=== PATIENT | female | born 1990 | race Caucasian/White ===

== ENCOUNTER → 2017-06-07 15:26 | Outpatient (CLI) | payer OTHER, SELFPAY | PROVIDERS: Family Provider Nurse Practitioner Family; PCP Nurse Practitioner Family | DX: R00.0 Tachycardia, unspecified (principal) | CPT/HCPCS: 96523 ==

== ENCOUNTER 2017-06-10 17:11 | Emergency (ER) | payer OTHER, SELFPAY ==
[2017-06-10 17:12] VITALS: BP 157/113; PULSE 98; RESP 18; TEMP 36.6; O2SAT 100; BMI 26.1
--- NOTE | 2017-06-10 17:29 | EKG12_ITS ---
Test Reason : Blood Pressure : / mmHG Vent. Rate : 097 BPM Atrial Rate : 097 BPM P-R Int : 126 ms QRS Dur : 084 ms QT Int : 366 ms P-R-T Axes : 063 068 038 degrees QTc Int : 464 ms Normal sinus rhythm Normal ECG Confirmed by RADHA MARCELO, ENRIKE ([id number]), editor managing newspaper YELENA TAVARES ([id number]) on 06/13/2017 3:35:37 PM Referred By: SCOTT Confirmed By:ENRIKE GARCIA MD
--- NOTE | 2017-06-10 17:32 | ED.VISSUMM ---
- ER Visit Summary Date of Service: 06/10/17 Chief Complaint: [] Syncope History of Present Illness: The patient is a 27 F [] complaining of syncope ?4 and headache. Patient reports a history of POTS syndrome (postural orthostatic tachycardia syndrome). Reports this is the reason she had syncope. She reports her syncope frequency increases when she has a headache. She reports a moderate migraine at this time that is not resolving with her medication at home. She also reports slight epigastric discomfort at this time. She reports she regularly has to get infusions of normal saline 2 times a week to prevent further syncope. She reports normal fluid intake. No other complaints at this time. Denies fevers. She reports her neurologist managing her POTS is at managed at [facility]. Physical Examination: [] Afebrile, tachycardic, vital signs stable. Young female in no acute distress. Cardiovascular exam is regular rhythm with a tachycardic rate. Lung exam is clear to auscultation. Abdomen is soft and nontender. Test Results: [] CBC and BMP are normal. EKG shows normal sinus rhythm with a rate of 97. HCG negative. Emergency Department Course and Treatment: [] Given intravenous Phenergan, Toradol, Benadryl for her headache. She received a normal saline bolus. Serial exam she had improvement of symptoms however did not have complete resolution of her headache. Her heart rate came down to the 80s. She felt improved overall and was amenable for discharge. Treatment Plan: [] Follow-up with PCP. Disposition: [] Discharge, stable. Impression: [] Syncope History of postural orthostatic tachycardia syndrome Migraine headache This note was generated with [employer] dictation software. It may contain incorrect words, spelling, and punctuation that were not noted in review of the chart prior to signing ED Disposition - Plan for ED Patient: Chief Complaint: Syncope Referrals: Albertina Encarnacion NP-C [Primary Care Provider] -
--- NOTE | 2017-06-10 17:35 | ED.DCSUM_ITS ---
- ER Visit Summary Date of Service: 06/10/17 Chief Complaint: [] Syncope History of Present Illness: The patient is a 27 F [] complaining of syncope ?4 and headache. Patient reports a history of POTS syndrome (postural orthostatic tachycardia syndrome). Reports this is the reason she had syncope. She reports her syncope frequency increases when she has a headache. She reports a moderate migraine at this time that is not resolving with her medication at home. She also reports slight epigastric discomfort at this time. She reports she regularly has to get infusions of normal saline 2 times a week to prevent further syncope. She reports normal fluid intake. No other complaints at this time. Denies fevers. She reports her neurologist managing her POTS is at managed at [facility]. Physical Examination: [] Afebrile, tachycardic, vital signs stable. Young female in no acute distress. Cardiovascular exam is regular rhythm with a tachycardic rate. Lung exam is clear to auscultation. Abdomen is soft and nontender. Test Results: [] CBC and BMP are normal. EKG shows normal sinus rhythm with a rate of 97. HCG negative. Emergency Department Course and Treatment: [] Given intravenous Phenergan, Toradol, Benadryl for her headache. She received a normal saline bolus. Serial exam she had improvement of symptoms however did not have complete resolution of her headache. Her heart rate came down to the 80s. She felt improved overall and was amenable for discharge. Treatment Plan: [] Follow-up with PCP. Disposition: [] Discharge, stable. Impression: [] Syncope History of postural orthostatic tachycardia syndrome Migraine headache This note was generated with [employer] dictation software. It may contain incorrect words, spelling, and punctuation that were not noted in review of the chart prior to signing ED Disposition - Plan for ED Patient: Chief Complaint: Syncope Referrals: Albertina Encarnacion NP-C [Primary Care Provider] -
[2017-06-10] MEDS: 0.9% Normal Saline 1,000 ML 1000 ML IV (17:43)
[2017-06-10] MEDS: DiphenhydrAMINE 50 MG/ML Syringe 25 MG IV (17:43)
[2017-06-10] MEDS: Ketorolac 30 MG/ML Syringe IV (17:44)
[2017-06-10 17:45] VITALS: PULSE 104; RESP 17; O2SAT 98
[2017-06-10 17:47] LABS: Absolute Lymphocyte Count 1.71 X10^3/ul (0.83-4.51); Absolute Neutrophil Count 4.4 X10^3/uL (2.0-7.7); Basophil# 0.05 X10^3/uL; Basophil% 0.7 % (0-1); Eosinophil# 0.27 X10^3/uL; Eosinophils% 3.8 % (0-5); Hematocrit 39.7 % (37-47); Hemoglobin 13.7 g/dl (12.0-15.0); Lymphocyte # 1.71 X10^3/ul (4.0); Lymphocyte % 23.8 % (19-41); Mean Corp Hgb Conc 34.5 g/gl (32-36); Mean Corpuscular Hgb 30.8 pg (27.0-32.0); Mean Corpuscular Volume 89.2 fL (81-99); Mean Platelet Vol. 10.4 fl (6.2-12.0); Monocyte# 0.76 X10^3/uL; Monocyte% 10.6 % (0-10); Neutrophil # 4.39 X10^3/uL (2.7-7.7); POSITIVE COUNT NO; POSITIVE DIFFERENTIAL NO; POSITIVE MORPHOLOGY NO; Platelet Count 281 K/mm3 (150-450); RBC Distribution Width CV 12.2 % (11.6-14.6); RBC Distribution Width SD 39.1 fl (35.1-43.9); Red Blood Count 4.45 M/mm3 (4.2-5.4); White Blood Count 7.2 K/mm3 (4.4-11.0)
[2017-06-10 18:01] LABS: ALB/GLOB Ratio 1.1 RATIO (0.9-2.4); AST(SGOT) 15 U/L (15-37); Alanine Aminotransfer ALT/SGPT 20 U/L (13-56); Albumin, Serum 4.2 g/dL (3.2-5.0); Alkaline Phosphatase 42 U/L (45-117); Anion Gap 7 (5-15); BUN 8 mg/dL (7-18); BUN/Creat Ratio 9.3 RATIO (10-20); Calcium,Total 8.7 mg/dL (8.5-10.1); Chloride 108 mmol/L (98-107); Creatinine, Serum 0.86 mg/dL (0.55-1.02); EST Glomerular Filtration Rate 84 mL/min (>60); Est Glom Filt Rate - Afr Amer 102 mL/min (>60); Globulin 3.7 g/dL (2.2-4.2); Glucose 144 mg/dL (74-106); Potassium 3.5 mmol/L (3.5-5.1); Protein, Total 7.9 g/dL (6.4-8.2); Sodium Level 142 mmol/L (136-145)
[2017-06-10 18:23] LABS: Pregnancy, Serum, hCG Quali. NEGATIVE Negative (0-9 Nonpreg)
--- NOTE | 2017-06-10 19:05 | ED.DEP ---
ED Disposition - Plan for ED Patient: Disposition: Home or Assisted Living Chief Complaint: Syncope Instructions: ED Hypotension Orthostatic, ED Headache Migraine Referrals: Albertina Encarnacion NP-C [Primary Care Provider] -
[2017-06-10 19:33] VITALS: BP 114/98; PULSE 80; RESP 16; O2SAT 97
== END 2017-06-10 19:34 | disposition home or self-care (01) ==
PROVIDERS: Emergency Provider Emergency Medicine; Family Provider Nurse Practitioner Family; PCP Nurse Practitioner Family
DX: R55 Syncope and collapse (principal); I49.8 Other specified cardiac arrhythmias; G43.909 Migraine, unspecified, not intractable, without status migrainosus; Z79.1 Long term (current) use of non-steroidal anti-inflammatories (NSAID); Z79.899 Other long term (current) drug therapy
CPT/HCPCS: 80053; 84703; 85025; 93005; 96361; 96374; 96375; 99283; J7030; A4216

== ENCOUNTER → 2017-06-14 15:25 | Outpatient (CLI) | payer OTHER, SELFPAY ==
[2017-06-10 17:12] VITALS: BMI 26.1
[2017-06-10 19:33] VITALS: BP 114/98
== END ==
PROVIDERS: Family Provider Nurse Practitioner Family; PCP Nurse Practitioner Family; Visit Provider Electrodiagnostic Medicine
DX: R00.0 Tachycardia, unspecified (principal)
CPT/HCPCS: 96523

== ENCOUNTER → 2017-06-21 15:22 | Outpatient (CLI) | payer OTHER, SELFPAY ==
[2017-06-10 17:12] VITALS: BMI 26.1
[2017-06-10 19:33] VITALS: BP 114/98
== END ==
PROVIDERS: Family Provider Nurse Practitioner Family; PCP Nurse Practitioner Family
DX: R00.0 Tachycardia, unspecified (principal)
CPT/HCPCS: 96523

== ENCOUNTER → 2017-06-28 15:40 | Outpatient (CLI) | payer OTHER, SELFPAY | PROVIDERS: Family Provider Nurse Practitioner Family; PCP Nurse Practitioner Family | DX: R00.0 Tachycardia, unspecified (principal) | CPT/HCPCS: 96523 ==

== ENCOUNTER → 2017-07-05 15:39 | Outpatient (CLI) | payer OTHER, SELFPAY | PROVIDERS: Family Provider Nurse Practitioner Family; PCP Nurse Practitioner Family | DX: R00.0 Tachycardia, unspecified (principal) | CPT/HCPCS: 96523 ==

== ENCOUNTER → 2017-07-20 13:14 | Outpatient (CLI) | payer OTHER, SELFPAY | PROVIDERS: Family Provider Nurse Practitioner Family; PCP Nurse Practitioner Family | DX: R00.0 Tachycardia, unspecified (principal) | CPT/HCPCS: 96523; A4216 ==

== ENCOUNTER → 2017-07-26 15:38 | Outpatient (CLI) | payer OTHER, SELFPAY | PROVIDERS: Family Provider Nurse Practitioner Family; PCP Nurse Practitioner Family | DX: R60.0 Localized edema (principal) | CPT/HCPCS: 96523 ==

== ENCOUNTER → 2017-08-02 14:05 | Outpatient (CLI) | payer OTHER, SELFPAY | PROVIDERS: Family Provider Nurse Practitioner Family; PCP Nurse Practitioner Family | DX: R00.0 Tachycardia, unspecified (principal) | CPT/HCPCS: 96523 ==

== ENCOUNTER → 2017-08-09 15:34 | Outpatient (CLI) | payer OTHER, SELFPAY | PROVIDERS: Family Provider Nurse Practitioner Family; PCP Nurse Practitioner Family | DX: R00.0 Tachycardia, unspecified (principal) | CPT/HCPCS: 96523 ==

== ENCOUNTER → 2017-08-16 15:44 | Outpatient (CLI) | payer OTHER, SELFPAY | PROVIDERS: Family Provider Nurse Practitioner Family; PCP Nurse Practitioner Family | DX: R00.0 Tachycardia, unspecified (principal); I95.1 Orthostatic hypotension | CPT/HCPCS: 96523; A4216 ==

== ENCOUNTER → 2017-08-23 15:43 | Outpatient (CLI) | payer OTHER, SELFPAY | PROVIDERS: Family Provider Nurse Practitioner Family; PCP Nurse Practitioner Family; Visit Provider Electrodiagnostic Medicine | DX: R00.0 Tachycardia, unspecified (principal); I95.1 Orthostatic hypotension | CPT/HCPCS: 96523; A4216 ==

== ENCOUNTER → 2017-08-30 15:47 | Outpatient (CLI) | payer OTHER, SELFPAY | PROVIDERS: Family Provider Nurse Practitioner Family; PCP Nurse Practitioner Family | DX: R00.0 Tachycardia, unspecified (principal) | CPT/HCPCS: 96523 ==

== ENCOUNTER → 2017-09-06 15:47 | Outpatient (CLI) | payer OTHER, SELFPAY | PROVIDERS: Family Provider Nurse Practitioner Family; PCP Nurse Practitioner Family | DX: R00.0 Tachycardia, unspecified (principal) | CPT/HCPCS: 96523 ==

== ENCOUNTER → 2017-10-04 14:45 | Outpatient (CLI) | payer OTHER, SELFPAY | PROVIDERS: Family Provider Nurse Practitioner Family; PCP Nurse Practitioner Family | DX: R00.0 Tachycardia, unspecified (principal) | CPT/HCPCS: 96523 ==

== ENCOUNTER → 2017-12-01 13:48 | Outpatient (CLI) | payer OTHER, SELFPAY | PROVIDERS: Family Provider Nurse Practitioner Family; PCP Nurse Practitioner Family; Visit Provider Electrodiagnostic Medicine | DX: Z45.2 Encounter for adjustment and management of vascular access device (principal); R00.0 Tachycardia, unspecified | CPT/HCPCS: 96523; J2997; A4216 ==

== ENCOUNTER 2018-02-20 18:48 | Emergency (ER) | payer OTHER, SELFPAY ==
[2018-02-20 18:49] VITALS: BP 153/90; PULSE 78; RESP 16; TEMP 36.1; BMI 27.4
--- NOTE | 2018-02-20 19:12 | US_ITS ---
STUDY: FIRST TRIMESTER OBSTETRICAL ULTRASOUND (TWINS) REASON FOR EXAM: Female, 28 years old. LMP: December 09, 2017. Bleeding. TECHNIQUE: Transvaginal. TECHNICAL QUALITY: Adequate. COMPARISON: None. FINDINGS: There are two demonstrated intrauterine gestational sacs. There is a thick amniotic membrane (>2mm), indicating a probable diamniotic . The estimated gestation age (EGA) by LMP is 6 weeks, 3 days. The estimated date of delivery (NIELS) by LMP is October 13, 2018. BABY A The mean sac diameter (MSD) measure 1.3 cm, indicating an estimated gestational age (EGA) of 6 weeks, 1 days. There is a visualized yolk sac. The yolk sac measures 0.3 cm. There is visualization of an embryo. The crown-rump length (CRL) measures 0.5 cm, indicating an estimated gestational age (EGA) of 6 weeks, 2 days. The estimated gestation age (EGA) by US is 6 weeks, 2 days. The estimated date of delivery (NIELS) by US is October 14, 2018. There is demonstrated cardiac activity with a heart rate 109 bpm. BABY B The mean sac diameter (MSD) measure 1.3 cm, indicating an estimated gestational age (EGA) of 6 weeks, 1 days. There is a visualized yolk sac. The yolk sac measures 0.3 cm. There is visualization of an embryo. The crown-rump length (CRL) measures 0.5 cm, indicating an estimated gestational age (EGA) of 6 weeks, 2 days. The estimated gestation age (EGA) by US is 6 weeks, 2 days. The estimated date of delivery (NIELS) by US is October 14, 2018. There is demonstrated cardiac activity with a heart rate 122 bpm. MATERNAL ANATOMY The uterus measures 9.4 x 6.8 x 4.1 cm. There is no demonstrated uterine fibroid. The cervix is closed. The right ovary measures 4.1 x 2.7 x 2.0 cm. There is 1.8 cm cyst. There is no visualized right adnexal mass or complex lesion. The left ovary measures 2.0 x 1.5 x 1.3 cm. There is no left ovarian cyst. There is no visualized left adnexal mass or complex lesion. There is no fluid in the cul de sac. US/Transvaginal w/Preg US IMPRESSION: Normal intrauterine first trimester twin at 6 weeks 2 days with estimated due date October 14, 2018. Electronically Signed: Jono Law MD at 21:54 EDT , Service support ,
--- NOTE | 2018-02-20 20:11 | ED.DCSUM_ITS ---
- ER Visit Summary Date of Service: 02/20/18 Chief Complaint: Vaginal bleeding History of Present Illness: The patient is a 28 F who is currently 6 weeks with her first . She reports onset of vaginal bleeding around 4 PM this afternoon. She has had some abdominal cramping all day. She denies passing any clots. She is not sure of her blood type. Physical Examination: Vital signs unremarkable. Patient sitting upright in bed no acute distress. Heart is regular rate and rhythm. Lung sounds clear. Abdomen is soft nontender. Test Results: CBC is unremarkable. Quant returns at 38,914. Pelvic ultrasound shows normal intrauterine first trimester twin gestation with baby is measuring 6 weeks 2 days. heart tones are measured at 109 and 122. Blood type is O+. Emergency Department Course and Treatment: Patient is given IV fluids. On repeat evaluation she is resting comfortably. Test results are discussed with her and at bedside. I also discussed case with Dr. Martinez, on-call for MANAGER OF INFORMATION. He states patient is to follow-up with Stevo Wilkins next week. Treatment Plan: [] Disposition: Discharge Impression: Threatened miscarriage This note was generated with [employer] dictation software. It may contain incorrect words, spelling, and punctuation that were not noted in review of the chart prior to signing ED Disposition - Plan for ED Patient: Disposition: Home or Assisted Living Chief Complaint: Vag Bld, Preg Instructions: ED Miscarriage Poss Referrals: Joana Sims MD [STAFF PHYSICIAN] - Keep Soraida appointment
[2018-02-20] MEDS: 0.9% Normal Saline 1,000 ML 1000 ML IV (20:37)
[2018-02-20 20:50] VITALS: RESP 16; O2SAT 98
[2018-02-20 20:56] LABS: Absolute Lymphocyte Count 1.97 X10^3/ul (0.83-4.51); Absolute Neutrophil Count 7.8 X10^3/uL (2.0-7.7); Basophil# 0.03 X10^3/uL; Basophil% 0.3 % (0-1); Eosinophil# 0.24 X10^3/uL; Eosinophils% 2.2 % (0-5); Hematocrit 37.1 % (37-47); Hemoglobin 12.3 g/dl (12.0-15.0); Lymphocyte # 1.97 X10^3/ul (4.0); Lymphocyte % 17.9 % (19-41); Mean Corp Hgb Conc 33.2 g/gl (32-36); Mean Corpuscular Hgb 29.4 pg (27.0-32.0); Mean Corpuscular Volume 88.8 fL (81-99); Mean Platelet Vol. 10.6 fl (6.2-12.0); Monocyte# 0.96 X10^3/uL; Monocyte% 8.7 % (0-10); Neutrophil # 7.78 X10^3/uL (2.7-7.7); Neutrophil % 70.7 % (47-70); POSITIVE COUNT NO; POSITIVE DIFFERENTIAL NO; POSITIVE MORPHOLOGY NO; Platelet Count 271 K/mm3 (150-450); RBC Distribution Width CV 12.3 % (11.6-14.6); RBC Distribution Width SD 39.5 fl (35.1-43.9); Red Blood Count 4.18 M/mm3 (4.2-5.4)
[2018-02-20 21:23] LABS: hCG Titer Quant., Serum 38914 mIU/mL (<9 non-preg)
[2018-02-20 22:05] VITALS: BP 121/82; PULSE 111; RESP 16; O2SAT 99
--- NOTE | 2018-02-20 22:19 | ED.DEP ---
ED Disposition - Plan for ED Patient: Disposition: Home or Assisted Living Chief Complaint: Vag Bld, Preg Instructions: ED Miscarriage Poss Referrals: Joana Sims MD [STAFF PHYSICIAN] - Keep Soraida appointment
[2018-02-20 22:30] VITALS: BP 149/97; PULSE 92; RESP 16; O2SAT 98
== END 2018-02-20 22:31 | disposition home or self-care (01) ==
PROVIDERS: Emergency Provider Emergency Medicine; Family Provider Nurse Practitioner Family; PCP Nurse Practitioner Family
DX: O20.0 Threatened abortion (principal); O30.001 Twin pregnancy, unspecified number of placenta and unspecified number of amniotic sacs, first trimester; Z79.899 Other long term (current) drug therapy; Z3A.01 Less than 8 weeks gestation of pregnancy
CPT/HCPCS: 76817; 84702; 85025; 86900; 96360; 96361; 99282; J7030; A4216

== ENCOUNTER → 2018-05-19 13:38 | Outpatient (CLI) | payer OTHER, SELFPAY ==
[2018-05-19 13:38] VITALS: BMI 26.1
[2018-05-19 13:46] LABS: Red Blood Cells-Urine 0 SEEN /hpf (0-5)
[2018-05-19 13:48] LABS: Color, Urine Yellow (Yellow); Glucose, Dipstick Normal (Normal); Ketone-Dipstick 5 mg/dl (Negative); Leukocyte Esterase-Dipstick 25 /ul (Negative); Nitrite-Dipstick Negative (Negative); Occult Blood-Urine Negative /ul (Negative); Protein-Dipstick Negative (Negative); Specific Gravity, Urine 1.015 (1.002-1.030); Urine Bilirubin Dipstick Negative (Negative); Urine Clarity Sl. Cloudy (Clear); Urine Urobilinogen Normal (Normal)
[2018-05-19 13:59] LABS: Squamous Epithelial Cells - UA 5-10 SEEN /hpf (5-10); White Blood Cells 0-5 SEEN /hpf (0-5)
[2018-05-19 14:00] LABS: Bacteria 2+ /hpf (None Seen); Mucous, Urine RARE /hpf (<or=2+)
== END ==
PROVIDERS: Family Provider Nurse Practitioner Family; PCP Nurse Practitioner Family; Referring Provider Obstetrics & Gynecology; Visit Provider Obstetrics & Gynecology
DX: O23.42 Unspecified infection of urinary tract in pregnancy, second trimester (principal); Z3A.00 Weeks of gestation of pregnancy not specified
CPT/HCPCS: 81001; 87086; 87088

== ENCOUNTER 2018-06-06 17:37 | Emergency (ER) | payer OTHER, SELFPAY ==
[2018-05-19 13:38] VITALS: BMI 26.1
[2018-06-06 19:44] VITALS: BP 150/101; PULSE 86; RESP 15; TEMP 36.6; O2SAT 98; BMI 29.7
--- NOTE | 2018-06-06 19:48 | ED.RN ---
Addendum entered by Kelsi Penn 06/06/18 20:13: PT INITIALLY CHECKED INTO TRIAGE, AND WAS SENT TO OB FOR CLEARANCE DUE TO ELEVATED BP. PT CLEARED BY OB AND RE-TRIAGED AFTER BEING EVALUATED IN OB. DR. FREDDIE UNDERWOOD MADE AWARE OF PT BP CONTINUING TO BE ELEVATED. PT AWAITING TO BE SEEN. Original Note: PT WAS CLEARED FROM OB, RETURNS TO ED WITH CONTINUED ELEVATED BP. DR. UNDERWOOD INFORMED REPORTS PT WILL BE SEEN IN ED.
[2018-06-06 21:20] VITALS: BP 153/93; PULSE 79; RESP 18; TEMP 37.1; O2SAT 99
--- NOTE | 2018-06-06 21:26 | ED.VISSUMM ---
- ER Visit Summary Date of Service: 06/06/18 Chief Complaint: Clogged Mediport History of Present Illness: The patient is a 28 F with history of pots syndrome presents to the emergency department a plugged Mediport. The patient has a dual-lumen implanted Mediport. She does get fluids through it at night. She states it was last accessed about 7 days ago. She states that they try to access it and withdrawal of blood, but it was plugged. She has been trying to speak with her physician who manages her pots, but cannot be seen. The patient does have hypertension at baseline secondary to her pots. She is not on any medications. She is at 20 weeks gestation. She denies blurry vision, change in vision, or other systemic symptoms. She states aside from her Mediport, she is at her baseline. She was actually evaluated in OB triage because of her hypertension and there was no evidence of preeclampsia. Physical Examination: Vital signs reviewed General: Well-nourished, well-developed Head: Normocephalic, atraumatic Eyes: Pupils equal and reactive, extraocular muscles intact Neck, supple, no lymphadenopathy Heart: Regular rate and rhythm Respiratory: No distress, clear bilaterally Abdomen: Soft, nontender, nondistended, no peritoneal signs Back: Nontender Extremities: Nontender, no edema, no cords Skin: Normal color no rash Neuro: Alert and oriented, no focal or lateralizing deficits Test Results: [] Emergency Department Course and Treatment: The patient had Cathflo instilled in the port. Within 60 minutes, he was able to flush easily and there was good blood return. She had no other symptoms. She has already been ruled out for preeclampsia. At this time, if the patient is a for discharge and she is comfortable with this plan of care. Treatment Plan: [] Disposition: Discharge Impression: 1. Occluded Mediport This note was generated with [employer] dictation software. It may contain incorrect words, spelling, and punctuation that were not noted in review of the chart prior to signing ED Disposition - Plan for ED Patient: Chief Complaint: General Illness Instructions: ED PICC Line Care Referrals: Albertina Encarnacion NP-C [Primary Care Provider] -
[2018-06-06] MEDS: Alteplase 2 MG/2 ML Vial IV (21:54)
[2018-06-06 22:48] VITALS: BP 130/75; PULSE 82; RESP 16; O2SAT 99
--- NOTE | 2018-06-06 22:49 | ED.RN ---
bLOOD RETURNED FLOW VERY EASILY AND FLUSHED WONDERFULLY AFTER 30 MIN OF CATHFLO. 3 MORE SYRINGES OF SALINE PUSHED THROUGH. PT PRESENTED WITH PORT ACCESSED FROM HOME, MD WANTS TO KEEP PORT ACCESSED FOR PT. PT HAS BEEN DOING HOME IV FLUIDS X YEAR FOR POTS. PT AND SPOUSE HAVE BEEN INSTRUCTED ON PROPER CARE.
== END 2018-06-06 22:50 | disposition home or self-care (01) ==
LOC: ED 21:47
PROVIDERS: Emergency Provider Emergency Medicine; Family Provider Nurse Practitioner Family; PCP Nurse Practitioner Family
DX: T82.898A Other specified complication of vascular prosthetic devices, implants and grafts, initial encounter (principal); O16.2 Unspecified maternal hypertension, second trimester; Z3A.20 20 weeks gestation of pregnancy
CPT/HCPCS: 36415; 96374; 99282; J2997; A4216

== ENCOUNTER 2018-06-06 17:55 | Outpatient (CLI) | payer OTHER, SELFPAY ==
[2018-05-19 13:38] VITALS: BMI 26.1
[2018-06-06 18:15] VITALS: BMI 27.3
[2018-06-06 18:35] LABS: Mean Corp Hgb Conc 33.3 g/gl (32-36); Mean Corpuscular Hgb 29.7 pg (27.0-32.0); Mean Corpuscular Volume 89.2 fL (81-99); Mean Platelet Vol. 11.7 fl (6.2-12.0); Platelet Count 265 K/mm3 (150-450); RBC Distribution Width CV 12.8 % (11.6-14.6); RBC Distribution Width SD 41.2 fl (35.1-43.9); Red Blood Count 4.37 M/mm3 (4.2-5.4); White Blood Count 12.6 K/mm3 (4.4-11.0)
[2018-06-06 18:41] LABS: Scan Indicated on CBC? Y/N NO
[2018-06-06 18:48] LABS: International Normalized Ratio 0.9; Partial Thromboplast Time 27.5 Seconds (24.1-36.2); Prothrombin Time (Protime)PT. 12.3 SECONDS (11.7-14.9)
[2018-06-06 19:02] LABS: Protein, Urine (Random) < 6.0 mg/dL (<11.9)
[2018-06-06 19:02] LABS: AST(SGOT) 39 U/L (15-37); Alanine Aminotransfer ALT/SGPT 49 U/L (13-56); Creatinine, Serum 0.61 mg/dL (0.55-1.02); EST Glomerular Filtration Rate 125 mL/min (>60); Est Glom Filt Rate - Afr Amer 151 mL/min (>60); Estimated Creatinine Clearance 139.74 ml/min; Uric Acid 4.5 mg/dL (2.6-6.0)
--- NOTE | 2018-06-07 07:50 | OB.TRI.NOTE ---
History of Present Illness Date of Service: 06/06/18 Was patient seen by the physician?: Yes Reason For Visit: R/O PIH Date of Service: 06/06/18 Final NIELS Source: US <20 weeks Gestational age: 21 w 4 d History of Present Illness: 22 yo [id number] female with POTS syndrome and a port in place for IV fluids. Presents to [facility] ED with CC of clogged port. Unable to flush. 21 w4d and with HTN noted in ED as well as headache. Sent to for PIH workup and to check fetus. Pt with POTS syndrome, followed by Neurologist, Dr. Kalen Kiser at [facility]. This is a chronic problem dx s/p concussion and Lyme disease in 2005. She had been having syncopal episodes up to 30 times monthly prior to beginning IV saline infusions. She has a history of migraine headaches. She also has a history of essential, primary HTN and cardiac arrhythmia. She has osteoporosis and has had 15-16 fractures of fingers and toes. She has a port in place and uses heparin to flush 5000 U q through tuesday. She gets twice weekly infusions of 1 liter Normal saline and since beginning these infusions has had far fewer syncopal episodes. This was a Di-Di twin , but auto-reduced to medellin with demise of twin A. She has seen [facility] for consultation in this . Sees Dr. Stevo Wilkins for care. Baby is SGA Allergies Sulfa (Sulfonamide Antibiotics) Allergy (Intermediate, Verified 06/06/18 19:44) Hives latex Allergy (Verified 06/06/18 19:44) Rash Laboratory Studies: Laboratory Tests 06/06/18 06/06/18 06/06/18 Range/Units 18:35 18:20 18:20 WBC (4.4-11.0) K/mm3 RBC (4.2-5.4) M/mm3 Hgb (12.0-15.0) g/dl Hct (37-47) % MCV (81-99) fL MCH (27.0-32.0) pg MCHC (32-36) g/gl RDW (11.6-14.6) % RDW Differential (35.1-43.9) fl Plt Count (150-450) K/mm3 MPV (6.2-12.0) fl PT 12.3 (11.7-14.9) SECONDS INR 0.9 APTT 27.5 (24.1-36.2) Seconds Creatinine 0.61 (0.55-1.02) mg/dL Estim Creat Clear Calc 139.74 ml/min Est GFR (MDRD) Af Amer 151 (>60) mL/min Est GFR (MDRD) Non-Af 125 (>60) mL/min Uric Acid 4.5 (2.6-6.0) mg/dL AST 39 H (15-37) U/L ALT 49 (13-56) U/L U Random Total Protein < 6.0 (<11.9) mg/dL Urine Creatinine 16.80 (NO RANGE EST.) mg/dL Protein/Creatinin Ratio TNP 06/06/18 Range/Units 18:20 WBC 12.6 H (4.4-11.0) K/mm3 RBC 4.37 (4.2-5.4) M/mm3 Hgb 13.0 (12.0-15.0) g/dl Hct 39.0 (37-47) % MCV 89.2 (81-99) fL MCH 29.7 (27.0-32.0) pg MCHC 33.3 (32-36) g/gl RDW 12.8 (11.6-14.6) % RDW Differential 41.2 (35.1-43.9) fl Plt Count 265 (150-450) K/mm3 MPV 11.7 (6.2-12.0) fl PT (11.7-14.9) SECONDS INR APTT (24.1-36.2) Seconds Creatinine (0.55-1.02) mg/dL Estim Creat Clear Calc ml/min Est GFR (MDRD) Af Amer (>60) mL/min Est GFR (MDRD) Non-Af (>60) mL/min Uric Acid (2.6-6.0) mg/dL AST (15-37) U/L ALT (13-56) U/L U Random Total Protein (<11.9) mg/dL Urine Creatinine (NO RANGE EST.) mg/dL Protein/Creatinin Ratio Physical Exam Vitals: +FHT by Doppler General: Alert, Oriented x3, Cooperative, No apparent distress HEENT: Atraumatic Neurological: Cranial nerves II-XII grossly intact Impression/Plan 22 yo with POTS syndrome and a port in place for IV fluids, history of migraine headaches and a history of essential, primary HTN and cardiac arrhythmia. BPs improved with rest +FHT by DT PIH labs all WNL except mild elevation of AST 39 (upper normal 37) Clogged IV port -- Back to ED for treatment to address clogged IV port. Continue care of port: IV NS infusion 1 liter twice weekly Heparin 5000 IU to port daily Tue-Tue F/U with Dr. Renetta Wilkins for care.
--- NOTE | 2018-06-07 07:57 | OB.TRI.HP_ITS ---
History of Present Illness Date of Service: 06/06/18 Was patient seen by the physician?: Yes Reason For Visit: R/O PIH Date of Service: 06/06/18 Final NIELS Source: US <20 weeks Gestational age: 21 w 4 d History of Present Illness: 22 yo [id number] female with POTS syndrome and a port in place for IV fluids. Presents to [facility] ED with CC of clogged port. Unable to flush. 21 w4d and with HTN noted in ED as well as headache. Sent to for PIH workup and to check fetus. Pt with POTS syndrome, followed by Neurologist, Dr. Kalen Kiser at [facility]. This is a chronic problem dx s/p concussion and Lyme disease in 2005. She had been having syncopal episodes up to 30 times monthly prior to beginning IV saline infusions. She has a history of migraine headaches. She also has a history of essential, primary HTN and cardiac arrhythmia. She has osteoporosis and has had 15-16 fractures of fingers and toes. She has a port in place and uses heparin to flush 5000 U q through tuesday. She gets twice weekly infusions of 1 liter Normal saline and since beginning these infusions has had far fewer syncopal episodes. This was a Di-Di twin , but auto-reduced to medellin with demise of twin A. She has seen [facility] for consultation in this . Sees Dr. Stevo Wilkins for care. Baby is SGA Allergies Sulfa (Sulfonamide Antibiotics) Allergy (Intermediate, Verified 06/06/18 19:44) Hives latex Allergy (Verified 06/06/18 19:44) Rash Laboratory Studies: Laboratory Tests 06/06/18 06/06/18 06/06/18 Range/Units 18:35 18:20 18:20 WBC (4.4-11.0) K/mm3 RBC (4.2-5.4) M/mm3 Hgb (12.0-15.0) g/dl Hct (37-47) % MCV (81-99) fL MCH (27.0-32.0) pg MCHC (32-36) g/gl RDW (11.6-14.6) % RDW Differential (35.1-43.9) fl Plt Count (150-450) K/mm3 MPV (6.2-12.0) fl PT 12.3 (11.7-14.9) SECONDS INR 0.9 APTT 27.5 (24.1-36.2) Seconds Creatinine 0.61 (0.55-1.02) mg/dL Estim Creat Clear Calc 139.74 ml/min Est GFR (MDRD) Af Amer 151 (>60) mL/min Est GFR (MDRD) Non-Af 125 (>60) mL/min Uric Acid 4.5 (2.6-6.0) mg/dL AST 39 H (15-37) U/L ALT 49 (13-56) U/L U Random Total Protein < 6.0 (<11.9) mg/dL Urine Creatinine 16.80 (NO RANGE EST.) mg/dL Protein/Creatinin Ratio TNP 06/06/18 Range/Units 18:20 WBC 12.6 H (4.4-11.0) K/mm3 RBC 4.37 (4.2-5.4) M/mm3 Hgb 13.0 (12.0-15.0) g/dl Hct 39.0 (37-47) % MCV 89.2 (81-99) fL MCH 29.7 (27.0-32.0) pg MCHC 33.3 (32-36) g/gl RDW 12.8 (11.6-14.6) % RDW Differential 41.2 (35.1-43.9) fl Plt Count 265 (150-450) K/mm3 MPV 11.7 (6.2-12.0) fl PT (11.7-14.9) SECONDS INR APTT (24.1-36.2) Seconds Creatinine (0.55-1.02) mg/dL Estim Creat Clear Calc ml/min Est GFR (MDRD) Af Amer (>60) mL/min Est GFR (MDRD) Non-Af (>60) mL/min Uric Acid (2.6-6.0) mg/dL AST (15-37) U/L ALT (13-56) U/L U Random Total Protein (<11.9) mg/dL Urine Creatinine (NO RANGE EST.) mg/dL Protein/Creatinin Ratio Physical Exam Vitals: +FHT by Doppler General: Alert, Oriented x3, Cooperative, No apparent distress HEENT: Atraumatic Neurological: Cranial nerves II-XII grossly intact Impression/Plan 22 yo with POTS syndrome and a port in place for IV fluids, history of migraine headaches and a history of essential, primary HTN and cardiac arrhythmia. BPs improved with rest +FHT by DT PIH labs all WNL except mild elevation of AST 39 (upper normal 37) Clogged IV port -- Back to ED for treatment to address clogged IV port. Continue care of port: IV NS infusion 1 liter twice weekly Heparin 5000 IU to port daily Tue-Tue F/U with Dr. Renetta Wilkins for care.
== END 2018-06-06 19:30 | disposition home or self-care (01) ==
LOC: WPOUT 18:04 → WP 18:05
PROVIDERS: Family Provider Nurse Practitioner Family; PCP Nurse Practitioner Family; Referring Provider Obstetrics & Gynecology; Visit Provider Obstetrics & Gynecology
DX: O16.2 Unspecified maternal hypertension, second trimester (principal); O36.5920 Maternal care for other known or suspected poor fetal growth, second trimester, not applicable or unspecified; M81.0 Age-related osteoporosis without current pathological fracture; Z3A.21 21 weeks gestation of pregnancy
CPT/HCPCS: 36415; 82565; 82570; 84156; 84450; 84460; 84550; 85027; 85610; 85730; 99218; G0378

== ENCOUNTER 2018-06-16 10:17 | Outpatient (CLI) | payer OTHER, SELFPAY ==
[2018-06-16 10:26] VITALS: BMI 27.3
[2018-06-16 10:40] VITALS: BMI 27.1
--- NOTE | 2018-06-16 19:47 | OB.TRI.NOTE ---
- Problem List (1) 23 weeks gestation of Status: Acute (2) Fall Status: Acute Qualifiers: Encounter type: initial encounter Qualified Code(s): W19.XXXA - Unspecified fall, initial encounter History of Present Illness Date of Service: 06/16/18 Was patient seen by the physician?: No Reason For Visit: FALL Final NIELS: 10/13/18 Final NIELS Source: US <20 weeks Gestational age: 23 Weeks and 0 Days History of Present Illness: 28yo G1 presents s/p fall on black ice at work. She landed on her side after breaking fall with her right arm. Allergies Sulfa (Sulfonamide Antibiotics) Allergy (Intermediate, Verified 06/16/18 11:53) Hives latex Allergy (Verified 06/16/18 11:53) Rash - Pertinent Past Medical History Medical History: Past Medical History (Last Updated 06/16/18 @ 19:50 by Joana Sims MD) Osteoporosis (Chronic) POTS (postural orthostatic tachycardia syndrome) (Chronic) NST - FHR Rate Baby A Baseline: 150 Variability:: Minimal Decelerations:: Variable NST Reactive:: Appropriate for gestational age FHR Category:: Category II Uterine Activity:: none Impression/Plan 28yo G1 s/p fall with NST appropriate for gestational age. -Nurse indicated pt with severe right arm pain and her concern for fracture -d/c to ER to r/o fracture
== END 2018-06-16 11:05 | disposition home or self-care (01) ==
LOC: WPOUT 10:30 → WP 10:31
PROVIDERS: Family Provider Nurse Practitioner Family; PCP Nurse Practitioner Family; Referring Provider Obstetrics & Gynecology; Visit Provider Obstetrics & Gynecology
DX: O9A.212 Injury, poisoning and certain other consequences of external causes complicating pregnancy, second trimester (principal); S49.91XA Unspecified injury of right shoulder and upper arm, initial encounter; W00.0XXA Fall on same level due to ice and snow, initial encounter; Y93.9 Activity, unspecified; Y92.9 Unspecified place or not applicable; Y99.9 Unspecified external cause status; Z3A.23 23 weeks gestation of pregnancy
CPT/HCPCS: 59050; 99218; G0378

== ENCOUNTER 2018-06-16 11:48 | Emergency (ER) | payer OTHER, SELFPAY ==
[2018-06-16 10:40] VITALS: BMI 27.1
[2018-06-16 11:50] VITALS: BP 151/86; PULSE 74; RESP 16; TEMP 36.7; O2SAT 99; BMI 27.2
--- NOTE | 2018-06-16 12:30 | RAD_ITS ---
STUDY: X-RAY - RIGHT RADIUS AND ULNA REASON FOR EXAM: Female, 28 years old. Pain following a fall. TECHNIQUE: 2 view(s) of the forearm. COMPARISON: None. FINDINGS: There is no demonstrated soft tissue swelling. Normal visualized radius. Normal visualized ulna. RAD/Forearm 2 Views IMPRESSION: Normal x-ray examination of the radius and ulna. Electronically Signed: Demetris Osorio MD at 12:51 EST , Service support ,
--- NOTE | 2018-06-16 13:30 | RAD_ITS ---
STUDY: X-RAY - RIGHT ELBOW REASON FOR EXAM: Female, 28 years old. Elbow pain. TECHNIQUE: Single oblique view(s) of the elbow. COMPARISON: None. FINDINGS: Questionable nondisplaced fracture of the radial head. RAD/Elbow 2 Views IMPRESSION: Questionable nondisplaced fracture of the radial head. Electronically Signed: Demetris Osorio MD at 13:59 EST , Service support ,
--- NOTE | 2018-06-16 14:16 | ED.VISSUMM ---
- ER Visit Summary Date of Service: 06/16/18 Chief Complaint: Fall with right arm pain History of Present Illness: The patient is a 28 F who is currently 23 weeks . Patient states she fell on ice this morning landing on her right side. Patient was seen at OB and cleared, then sent to the ED for evaluation of her arm. She is right-hand dominant. She complains of pain around the elbow and proximal forearm. She denies striking her head. Physical Examination: Vital signs significant for blood pressure 151/86, otherwise vitals normal. Patient sitting upright in bed no acute distress. Head neck examination reveals no sign of trauma. Heart is regular rate and rhythm. Lungs sounds clear. Abdomen is soft and gravid. Right upper extremity examination reveals focal tenderness around the right elbow and proximal forearm. She does have increased pain with pronation and supination. Strong distal pulses are noted. There is no tenderness at the wrist or shoulder. Test Results: Right forearm x-rays are read as normal. On my review there is a questionable defect across the radial head. Clinically the patient does have exam consistent with radial head fracture. After discussion with the radiologist and additional oblique view of the elbow was obtained. Read from the study is questionable radial head fracture. Emergency Department Course and Treatment: Test results were discussed with patient and at bedside. At this time her exam and mechanism are consistent with radial head fracture. She is placed in a posterior plus sugar tong splint. She is referred to orthopedics for follow-up. She is written for oxycodone for pain. She will try Tylenol first and use oxycodone only for breakthrough pain. Treatment Plan: [] Disposition: Discharge Impression: 1. Right radial head fracture status post fall 2. Second trimester This note was generated with [employer] dictation software. It may contain incorrect words, spelling, and punctuation that were not noted in review of the chart prior to signing ED Disposition - Plan for ED Patient: Disposition: Home or Assisted Living Instructions: ED Fx Radial Head Prescriptions: Oxycodone [Oxyir] 5 mg PO Q6H PRN PRN 3 Days #20 tablet PRN Reason: Pain Referrals: Juventino Jane MD [STAFF PHYSICIAN] - 1 Week
== END 2018-06-16 14:36 | disposition home or self-care (01) ==
PROVIDERS: Emergency Provider Emergency Medicine; Family Provider Nurse Practitioner Family; PCP Nurse Practitioner Family
DX: O9A.212 Injury, poisoning and certain other consequences of external causes complicating pregnancy, second trimester (principal); S52.121A Displaced fracture of head of right radius, initial encounter for closed fracture; W00.0XXA Fall on same level due to ice and snow, initial encounter; Y93.9 Activity, unspecified; Y92.9 Unspecified place or not applicable; Y99.9 Unspecified external cause status; Z3A.23 23 weeks gestation of pregnancy
CPT/HCPCS: 29125; 73070; 73090; 99283

== ENCOUNTER → 2018-06-23 11:54 | Outpatient (CLI) | payer OTHER, SELFPAY ==
[2018-06-16 11:50] VITALS: BMI 27.2
== END ==
PROVIDERS: Visit Provider Obstetrics & Gynecology
DX: O31.23X1 Continuing pregnancy after intrauterine death of one fetus or more, third trimester, fetus 1 (principal); O36.4XX1 Maternal care for intrauterine death, fetus 1; Z3A.00 Weeks of gestation of pregnancy not specified
CPT/HCPCS: 36415

== ENCOUNTER 2018-06-23 15:00 | Inpatient (IN) | payer OTHER, SELFPAY ==
[2018-06-23 15:21] VITALS: BMI 27.0
--- NOTE | 2018-06-23 15:32 | HP.PCM_ITS ---
- Problem List (1) 24 weeks gestation of Status: Acute (2) IUFD at 20 weeks or more of gestation Status: Acute History Date of Admission: 06/23/18 Final NIELS: 10/13/18 Final NIELS Source: US <20 weeks Gestational age: 24 Weeks and 1 Days History of this : This is a 28 year-old, G 1], P [0], at 24 weeks gestational age with IUFD pre sents for induction of labor. Patient initially had a dichorionic diamnionic twin gestation with demise of a single twin at 7wga. US at 20wga showed borderline IUGR with limited face views. Repeat views today showed limited interval growth with no heart rate. Medical History: Medical History (Last Updated 06/23/18 @ 15:56 by Joana Sims MD) Osteoporosis (Chronic) M81.0 POTS (postural orthostatic tachycardia syndrome) (Chronic) R00.0, I95.1 Has port - infuses NS twice weekly with heparin flush Multiple fractures T07.XXXA Allergies Sulfa (Sulfonamide Antibiotics) Allergy (Intermediate, Verified 06/23/18 15:22) Hives latex Allergy (Verified 06/23/18 15:22) Rash Home Medications: Home Medications 0.9% Normal Saline 1,000 ml IV QWEEK 06/06/18 Vits [Prenatabs FA] 1 tablet PO DAILY 06/06/18 Cholecalciferol (Vitamin D3) [Vitamin D3] 1,000 unit PO DAILY 06/16/18 Phytonadione (Vit K1) [Vitamin K] 100 mcg PO DAILY 06/16/18 Smoking Status: Never smoker Alcohol: None Number of Fetus(es): 1 History Past Pregnancies: Past Pregnancies Delivery Date Name GA/Weeks Outcome Route Weight Infant Gender Labor Length Anesthesia Delivery Location Provider FOB Labs: Mom's Current Diagnoses Maternal care for intrauterine , not applicable or unspecified 06/23/18 Mom's Problem List Problem Status Onset Code 24 weeks gestation of Acute Z3A.24 IUFD at 20 weeks or more of gestation Acute O36.4XX0 Mom's Labs & Results 06/23/18 06/23/18 06/23/18 16:15 16:15 16:15 WBC 12.7 H RBC 3.74 L Hgb 11.4 L Hct 34.0 L MCV 90.9 MCH 30.5 MCHC 33.5 RDW 13.1 RDW Differential 43.0 Plt Count 249 MPV 11.5 PT INR APTT Fibrinogen Hemoglobin A1c 5.0 Urine Color Urine Clarity Urine pH Ur Specific [place] Urine Protein Urine Glucose (UA) Urine Ketones Urine Occult Blood Urine Nitrite Urine Bilirubin Urine Urobilinogen Ur Leukocyte Esterase Urine RBC Urine WBC Ur Squamous Epith Cells Urine Bacteria Urine Mucus Urine Opiates Screen Urine Methadone Screen Ur Barbiturates Screen Ur Phencyclidine Scrn Ur Amphetamines Screen U Methamphetamin-MDMA U Benzodiazepines Scrn Urine Cocaine Screen U Cannabinoids Screen Ur Drug Screen Comment CMV IgG Ab CMV IgM Ab Toxoplasma IgG Ab Toxoplasma gondii IgM Blood Type O POSITIVE Antibody Screen NEGATIVE 06/23/18 06/23/18 06/23/18 19:20 19:20 19:20 WBC RBC Hgb Hct MCV MCH MCHC RDW RDW Differential Plt Count MPV PT INR APTT Fibrinogen Hemoglobin A1c Urine Color Urine Clarity Urine pH Ur Specific [place] Urine Protein Urine Glucose (UA) Urine Ketones Urine Occult Blood Urine Nitrite Urine Bilirubin Urine Urobilinogen Ur Leukocyte Esterase Urine RBC Urine WBC Ur Squamous Epith Cells Urine Bacteria Urine Mucus Urine Opiates Screen Urine Methadone Screen Ur Barbiturates Screen Ur Phencyclidine Scrn Ur Amphetamines Screen U Methamphetamin-MDMA U Benzodiazepines Scrn Urine Cocaine Screen U Cannabinoids Screen Ur Drug Screen Comment CMV IgG Ab Pending CMV IgM Ab Pending Toxoplasma IgG Ab Pending Toxoplasma gondii IgM Pending Blood Type Antibody Screen 06/23/18 06/23/18 06/23/18 19:20 19:30 19:30 WBC RBC Hgb Hct MCV MCH MCHC RDW RDW Differential Plt Count MPV PT 12.7 INR 1.0 APTT 24.5 Fibrinogen 451 H Hemoglobin A1c Urine Color Yellow Urine Clarity Clear Urine pH 6.0 Ur Specific [place] 1.010 Urine Protein Negative Urine Glucose (UA) Normal Urine Ketones 5 H Urine Occult Blood Negative Urine Nitrite Negative Urine Bilirubin Negative Urine Urobilinogen Normal Ur Leukocyte Esterase 25 H Urine RBC 0 SEEN Urine WBC 0-5 SEEN Ur Squamous Epith Cells 0-5 SEEN Urine Bacteria 2+ Urine Mucus 0 SEEN Urine Opiates Screen NEGATIVE Urine Methadone Screen NEGATIVE Ur Barbiturates Screen NEGATIVE Ur Phencyclidine Scrn NEGATIVE Ur Amphetamines Screen NEGATIVE U Methamphetamin-MDMA NEGATIVE U Benzodiazepines Scrn NEGATIVE Urine Cocaine Screen NEGATIVE U Cannabinoids Screen NEGATIVE Ur Drug Screen Comment CMV IgG Ab CMV IgM Ab Toxoplasma IgG Ab Toxoplasma gondii IgM Blood Type Antibody Screen Course Did the patient receive Yes care? Labs Blood Type: A RH: NEGATIVE RPR/VDRL/Syphilis Nonreactive Rubella status Immune HbSAg Negative Date Done: 02/27/18 Chlamydia Negative Gonorrhea Negative HIV/AIDS Unknown Group B Strep: Not Done Current Obstetrical History Gestational Diabetes No Incompetent Cervix No Infertility No IUGR No Macrosomia No Hypertension/Pre-eclampsia No Placenta Previa/Abruption No PTL/PROM No Uterine anomaly No Oligohydramnios No Polyhydramnios No Multiple gestation No Past Medical History Asthma No Diabetes No Hypertension No: POTS, BP runs higher Heart disease No Mitral valve prolapse No Neurologic/Seizure disorder/ No Migraines Kidney disease No Liver disease No Varicosities No Clotting disorders/Hx of DVT No Thyroid Dysfunction No Other medical diseases No Psychiatric disorders No Major trauma No Abnormal PAP smear No Sleep apnea No Mammogram in the last 2 years No Enter DETAILS of medical Osteoporosis-at least 16 fx per pt report history Social History Marital Status: Alleged father Keenan Hx Smoking No Smoking Status Never smoker Expected Delivery Method: Spontaneous Vaginal Number of Visits: 6 Review of Systems Constitutional: Reports: Anorexia Respiratory: Denies: Shortness of Breath Gastrointestinal: Denies: Abdominal Pain, Nausea, Vomiting Gynecological: Reports: - - Denies contractions. Denies: Vaginal bleeding Physical Exam Vitals: AVSS General: Alert, Oriented x3, Cooperative, No apparent distress HEENT: Atraumatic, Normocephalic Cardiovascular: Regular rate, Regular Rhythm, Normal S1, Normal S2 Lungs: Normal air movement Abdomen: Soft, Non Tender, Non-Distended Extremities:: No edema Neurological: Neuro grossly intact Estimated gestational size: Small for gestational age Presentation: Cephalic Assessment/Plan All Active Problems (Last Updated 06/23/18 @ 15:56 by Joana Sims MD) 23 weeks gestation of (Acute) Fall (Acute) 24 weeks gestation of (Acute) IUFD at 20 weeks or more of gestation (Acute) This is a 28 year-old, G [1], P []0, at 24 weeks gestational age with IUFD -High dose cytotec induction planned -Discussed with patient induction risks, benefits and indications including but not limited to risks for pain, bleeding, infection, need for further procedures possibly including dilation and curettage, laparotomy, hysterectomy.
[2018-06-23] MEDS: Lactated Ringers 1,000 ML 50 ML IV (16:15)
[2018-06-23] MEDS: 0.9% Saline Lock 10 ML Syringe IV ×3 (16:15→23:22)
[2018-06-23 16:40] LABS: Hemoglobin 11.4 g/dl (12.0-15.0); Mean Corp Hgb Conc 33.5 g/gl (32-36); Mean Corpuscular Hgb 30.5 pg (27.0-32.0); Mean Corpuscular Volume 90.9 fL (81-99); Mean Platelet Vol. 11.5 fl (6.2-12.0); Platelet Count 249 K/mm3 (150-450); RBC Distribution Width CV 13.1 % (11.6-14.6); Red Blood Count 3.74 M/mm3 (4.2-5.4); White Blood Count 12.7 K/mm3 (4.4-11.0)
[2018-06-23 16:43] LABS: Scan Indicated on CBC? Y/N NO
[2018-06-23] MEDS: miSOPROStol 200 MCG Tablet 400 MCG VAGINAL ×2 (17:30→21:34)
[2018-06-23] MEDS: Acetaminophen 325 MG Tablet PO (19:47)
[2018-06-23 20:01] LABS: Mucous, Urine 0 SEEN /hpf (<or=2+); Red Blood Cells-Urine 0 SEEN /hpf (0-5)
[2018-06-23 20:05] LABS: Color, Urine Yellow (Yellow); Glucose, Dipstick Normal (Normal); Ketone-Dipstick 5 mg/dl (Negative); Leukocyte Esterase-Dipstick 25 /ul (Negative); Nitrite-Dipstick Negative (Negative); Occult Blood-Urine Negative /ul (Negative); Protein-Dipstick Negative (Negative); Urine Bilirubin Dipstick Negative (Negative); Urine Clarity Clear (Clear); Urine Urobilinogen Normal (Normal)
[2018-06-23 20:11] LABS: Bacteria 2+ /hpf (None Seen); Squamous Epithelial Cells - UA 0-5 SEEN /hpf (5-10); White Blood Cells 0-5 SEEN /hpf (0-5)
[2018-06-23 20:15] LABS: Fibrinogen 451 mg/dl (203-444); Partial Thromboplast Time 24.5 Seconds (24.1-36.2); Prothrombin Time (Protime)PT. 12.7 SECONDS (11.7-14.9)
[2018-06-23 20:20] LABS: Amphetamine Urine VISTA NEGATIVE (<1000 ng/mL); Barbiturate Urine VISTA NEGATIVE (< 200 ng/mL); Benzodiazepine Urine VISTA NEGATIVE (< 200 ng/mL); Cocaine Urine VISTA NEGATIVE (< 300 ng/mL); Ecstacy Urine VISTA NEGATIVE (< 500 ng/mL); Methadone Urine VISTA NEGATIVE (< 300 ng/mL); PCP Urine VISTA NEGATIVE (< 25 ng/mL); THC Urine VISTA NEGATIVE (< 50 ng/mL); Vista UDS pH Range 6
[2018-06-23] MEDS: Ondansetron 4 MG/2 ML Vial IV (23:20)
[2018-06-24] MEDS: Nalbuphine 10 MG/ML Ampul IV ×2 (01:01→05:17)
[2018-06-24] MEDS: 0.9% Saline Lock 10 ML Syringe IV ×5 (01:02→08:47)
[2018-06-24] MEDS: miSOPROStol 200 MCG Tablet 400 MCG VAGINAL ×2 (02:05→05:36)
[2018-06-24] MEDS: proMETHazine 25 MG/ML Syringe IV (05:00)
[2018-06-24] MEDS: Acetaminophen 325 MG Tablet PO ×2 (05:30→07:07)
[2018-06-24] MEDS: Ketorolac 15 MG/ML Vial IV (05:36)
--- NOTE | 2018-06-24 06:30 | PLAC_PTH ---
PATIENT: CLARISA REYES LOC: [facility] U#:[id number] AGE/SX: 28/F ROOM: WP021 RE06/23/[address]: Dr. Joana Wilkins MD : 1990 BED: 1 DIS: 06/25/2018 SPEC #: [id number] RECD: 06/24/18 10:33 STATUS: YOVANA RECat #: [id number] CARLOS: 06/24/18 06:[address]: Joana Tang DEPT: SURGICAL PATHOLOGY RECD BY: Terrance Winchester ENTERED: 06/26/18 08:00 SP TYPE: PLACENTA OTHR DR: No Primary Care Phys Tissues: Placenta, NOS Procedures: Surgery Specimen Level V HEADER OPERATION: Vaginal delivery PRE-OP DIAGNOSIS: demise TISSUE SUBMITTED: Placenta MICROSCOPIC DIAGNOSIS Funk placenta (115 gm): Umbilical cord - trivascular with no inflammation. Placental membranes - focal acute deciduitis with fibrinoid degeneration. Placental disc - Santiago-Chadwick change, mild and acute and chronic deciduitis. AM:evita 06/27/18 MICROSCOPIC DESCRIPTION Slides are reviewed. GROSS DESCRIPTION SPECIMEN: PLACENTA / CLINICAL INFORMATION: A. Weight: Not noted B. Gestational Age: 24 weeks C. Sex: Female PLACENTAL WEIGHT (POST FIXATION): 115 gm PLACENTAL DIMENSIONS: The disrupted placental disc measures 13.5 x 9 x 3 cm. PLACENTAL SHAPE: Usual ovoid PLACENTAL WEIGHT FOR GESTATIONAL AGE: Within 10-99th percentile MEMBRANES - Present A. Insertion: Marginal B. Site of rupture from edge: At edge of placental disc C. Color of membrane: Weaver-jacinto D. Abnormalities: None UMBILICAL CORD - Present A. Color: Weaver-jacinto B. Insertion: Eccentric C. Length: The specimen consists of a partly disrupted but complete placental disc with attached portion of umbilical cord measuring 7 x 0.7 cm and a detached fragment of umbilical cord measuring 4.5 x 1 cm. D. Diameter: E. Number of vessels: Three F. Abnormalities: None PLACENTAL DISC - Present A. Color of surface: Weaver-jacinto B. surface abnormalities: None C. Maternal cotyledons: Intact with minimal tears D. Attached retro placental clot: No clot E. Cut surface: Dark red and spongy F. Lesions: None G. Separate clot: Absent SECTIONS SUBMITTED: 1. Membrane roll and umbilical cord ( end notched) 2. Placental disc, and maternal surfaces 3. Placental disc, and maternal surfaces 4. Placental disc, and maternal surfaces AM:evita 06/26/18 TC:2 CPT: 24243
[2018-06-24] MEDS: Oxytocin 30 units/NS 500 ml 30 UNITS/500 ML IV.SOLN 167 UNITS IV (07:00)
--- NOTE | 2018-06-24 09:00 | PCM.PN.BLA ---
Progress Note Patient with Tm 101.9, VSS. s/p 2 doses Tylenol 650mg (one dose for right fracture related pain) and single dose of 325mg as well as Toradol 15mg overnight. Sx initially attributed to multiple high dose of cytotec. No nausea, vomiting, cough, shortness of breath, dysuria or frequency, low back pain or abdominal pain apart from contractions. Exam unremarkable with fundus firm, no increase in bleeding. Patient reported her baseline temperature runs low between 96-97 degrees Fahrenheit. She noted temperature rising to 99 prior to arrival yesterday. Given persistent elevation and patient symptoms, will give single dose of Cefotetan and plan to observe at least 12 hours without fever.
[2018-06-24 10:28] LABS: Pathology Specimen OB SEE PATHOLOGY REPORT
--- NOTE | 2018-06-24 10:50 | PCM.OB.VAG ---
- Problem List (1) 24 weeks gestation of Status: Acute (2) IUFD at 20 weeks or more of gestation Status: Acute Vaginal Delivery Maternal Presentation: Medically Indicated Induction Method of Induction: Cytotec Medical Reason for Induction: demise Amniotic Membrane Rupture Type: Spontaneous Rupture of Membrane time: 06/24/18 0436h Amniotic Fluid Description: Clear Final NIELS: 10/13/18 Final NIELS Source: US <20 weeks Gestational age: 24 Weeks and 1 Days Date of Procedure: 06/24/18 Pre-Operative Diagnosis: 24 1/7wga, IUFD, maternal fever Post-Operative Diagnosis: 24 1/7wga, IUFD, maternal fever Surgery/ Procedure Performed: Spontaneous Vaginal Delivery Type of Anesthesia: None Description of Procedure: Patient was FD and pushed to deliver a non-viable female in cephalic presentation. The cord was doubly clamped and cut. The infant was swaddled and given to her mother. On inspection the head appeared slightly mishapen and macerated. Facial features were flattened and skin of head macerated. Normal appearing torso and limbs with ten fingers and toes bilaterally. Cord without abnormalities. IV pitocin was started. There was no evidence of placental separation. The placenta delivered approximately 1.5 hours later and appeared intact on inspection and appropriate for gestational age. A placental and cord specimen were collected for Anora testing. Maternal fundus was firm and there was no evidence of hemorrhage with light lochia on evaluation approximately 15 minutes after placental delivery. A vaginal sweep was performed with no clot retrieved. Perineum was intact. Sponge count was correct. Presentation: Vertex Placenta Disposition: [facility] Cord Vessel Description: 3 Vessels Nuchal Cord Compression: Without compression Cord Entanglement: None Estimated Blood Loss: 100 ml A gender: Female (1 minute): 0 (5 minute): 0 Episiotomy Description: None Laceration: None Medications given after delivery: IV Pitocin
[2018-06-24 11:00] VITALS: TEMP 37.9
--- NOTE | 2018-06-24 11:00 | DCINST_ITS ---
Discharge Diet: No Restrictions Discharge Activity: Return to Normal Activity, May Shower, May Take a Tub Bath May resume sexual activity in: 4-6 weeks Lifting Restrictions: 20-25 lb Call your doctor if you observe: Fever of 101 or Higher, Inability to urinate, Inability to have a bowel movement, Using more than one pad per hour, Shortness of breath, Chest pain, Calf discomfort, Uncontrolled pain Additional Instructions: If you experience any of the following, contact your healthcare provider. * Bleeding that soaks a pad every hour for 2 hours * Fever 100.4 or higher * Unrelieved incision or abdominal pain * Swelling, redness, discharge or bleeding from your incision or episiotomy site * Your incision begins to separate * Problems urinating (including inability to urinate or burning while urinating). * Visual changes * Severe headache * Flu-like symptoms * Pain or redness in one of both of your breasts * Pain, warmth, tenderness or swelling in your legs, especially the calf area * Frequent nausea and vomiting * Symptoms of depression or anxiety If you experience any of the following, call 911 or go to the nearest Emergency Room. * Chest pain * Problems breathing * Seizure activity * Partial or complete paralysis of a body part, slurred speech, weakness or drooping of the face, or a sudden inability to walk or hold your balance Allergies/Adverse Reactions: Allergies Sulfa (Sulfonamide Antibiotics) Allergy (Intermediate, Verified 06/23/18 15:22) Hives latex Allergy (Verified 06/23/18 15:22) Rash Medications to take at Discharge 0.9% Normal Saline 1,000 ml IV QWEEK 06/06/18 Vits [Prenatabs FA] 1 tablet PO DAILY 06/06/18 Cholecalciferol (Vitamin D3) [Vitamin D3] 1,000 unit PO DAILY 06/16/18 Phytonadione (Vit K1) [Vitamin K] 100 mcg PO DAILY 06/16/18 Please Follow Up With: Joana Sims MD When: 5-7 days Primary Care Physician: Care Physician,No Primary [Primary Care Provider] - Test Results: Test results from this visit will be discussed in further detail at your follow- up appointment, if applicable.
[2018-06-24 12:00] VITALS: BP 140/82; PULSE 108; RESP 18; TEMP 37.5
[2018-06-24 14:55] VITALS: TEMP 37.2
[2018-06-24 16:00] VITALS: BP 142/89; PULSE 114; RESP 18; TEMP 36.7
[2018-06-24] MEDS: Acetaminophen 500 MG Tablet 1000 MG PO (18:12)
[2018-06-24 19:33] VITALS: BP 134/83; PULSE 106; RESP 18; TEMP 36.9
--- NOTE | 2018-06-24 20:17 | NURSING ---
RN printed off [employer] form for Post depression. Also copied pages from [facility] booklet about physical changed after , bleeding, self care/hygiene, emotional changes, and s/s to report to healthcare provider. Given to patient and .
--- NOTE | 2018-06-24 21:10 | NURSING ---
Pt called out and stated ready for fetus to be picked up by home. RN called [facility] home at this time, state they will be here in approx 30-45 min.
--- NOTE | 2018-06-24 21:38 | NURSING ---
weight and length obtained at this time in room. Weight 247 grams, length 10 inches. Baby rewrapped in bunting and mother holding in arms. remains at bedside, supportive.
--- NOTE | 2018-06-24 22:00 | NURSING ---
John from [facility] arrived to to picking tech baby. Accompanied him to room. Baby placed in postmortum box, along with memorabilia heart per parental request. Final kisses given by parents. Much emotional support offered. Parents appropriately tearful. Fetus transferred off unit by John at this time.
[2018-06-25 00:17] VITALS: BP 116/60; PULSE 91; RESP 16; TEMP 36.7
[2018-06-25] MEDS: Acetaminophen 500 MG Tablet 1000 MG PO (04:23)
[2018-06-25 04:24] VITALS: BP 130/79; PULSE 101; RESP 16; TEMP 36.6
[2018-06-25 08:00] VITALS: BP 138/86; PULSE 106; RESP 18; TEMP 35.9
--- NOTE | 2018-06-25 10:38 | NURSING ---
Pt called and stated she has showered and wants to go home. Reviewed discharge instructions with pt, copy of discharge instructions given to pt. PHQ not done because pt had a demise. Discussed depression. Pt calm and appropriate. Awaiting discharge order from doctor.
[2018-06-25 11:05] VITALS: BP 136/83; PULSE 107; RESP 18; TEMP 36.9
--- NOTE | 2018-06-25 11:29 | PN.OBGYN_ITS ---
Patient Problems: Active and Suspected Problems (Last Updated 06/23/18 @ 15:56 by Joana Wilkins MD) (spontaneous vaginal delivery) (Acute) 24 weeks gestation of (Acute) IUFD at 20 weeks or more of gestation (Acute) Subjective: Patient without complaints. Minimal vaginal bleeding. Ready to go home today. - Physical Exam Vital Signs Temp Pulse Resp BP 96.7 F L 106 H 18 138/86 H 06/25/18 08:00 06/25/18 08:00 06/25/18 08:00 06/25/18 08:00 Oxygen Delivery Method Room Air Weight: 178 lb Body Mass Index (BMI) 27.0 Intake and Output for Last 24 Hours 06/23/18 06/24/18 06/25/18 23:59 23:59 23:59 Intake Total 437 / 437 Balance 437 / 437 Medical Necessity - Tobacco Use Smoking Status: Never smoker Assessment/Plan All Active Problems (Last Updated 06/23/18 @ 15:56 by Joana Sims MD) (spontaneous vaginal delivery) (Acute) 23 weeks gestation of (Acute) Fall (Acute) 24 weeks gestation of (Acute) IUFD at 20 weeks or more of gestation (Acute) Doing well day #1 status post spontaneous vaginal delivery for demise at approximately 24 weeks gestation. Will release to home with routine instructions.
[2018-06-25 11:31] VITALS: BP 136/83; PULSE 107; RESP 18; TEMP 36.9
[2018-06-26 11:01] LABS: CMV Acute Antibody IgM < 30.0 AU/mL (0.0-29.9); CMV Antibody IgG < 0.60 U/mL (0.00-0.59)
[2018-06-26 11:02] LABS: Toxoplasma Gondii IgG < 3.0 IU/mL (0.0-7.1); Toxoplasma Gondii IgM < 3.0 AU/mL (0.0-7.9)
--- NOTE | 2018-07-04 08:42 | PCM.DC.SUM ---
Discharge Date and Diagnosis Date of Admission: 06/23/18 Date of Discharge: 06/25/18 - Secondary Discharge Diagnosis Chronic Problems (Last Updated 06/23/18 @ 15:56 by Joana Sims MD) Osteoporosis (Chronic) POTS (postural orthostatic tachycardia syndrome) (Chronic) Has port - infuses NS twice weekly with heparin flush Hospital Course and Treatment Operations: None Procedures: None Summary of Care Provided: The patient is a 28 year old F G1 admitted at 24 weeks gestation for induction of labor for demise. She underwent induction of labor and delivered the following day. Her course was complicated by fever, presumably from high dose cytotec. She received a single dose of antibiotics and was discharged to home on day #1. - Physical Exam Vital Signs Temp Pulse Resp BP 98.4 F 107 H 18 136/83 H 06/25/18 11:31 06/25/18 11:31 06/25/18 11:31 06/25/18 11:31 Oxygen Delivery Method Room Air Weight: 80.739 kg Body Mass Index (BMI) 27.0 Discharge Diet: No Restrictions Discharge Activity: Return to Normal Activity, May Shower, May Take a Tub Bath May resume sexual activity in: 4-6 weeks Call your doctor if you observe: Fever of 101 or Higher, Inability to urinate, Inability to have a bowel movement, Using more than one pad per hour, Shortness of breath, Chest pain, Calf discomfort, Uncontrolled pain Home Medications: Medications to take at Discharge Vits [Prenatabs FA] 1 tablet PO DAILY 06/06/18 RX: 0.9% Normal Saline 1,000 ml IV QWEEK 06/06/18 Cholecalciferol (Vitamin D3) [Vitamin D3] 1,000 unit PO DAILY 06/16/18 Phytonadione (Vit K1) [Vitamin K] 100 mcg PO DAILY 06/16/18 Primary Care Physician: Care Physician,No Primary [Primary Care Provider] - Please Follow Up With: Joana Sims MD Medical Necessity - Tobacco Use Smoking Status: Never smoker Meaningful Use Info Meaningful Use Diagnoses (Choose all that apply): None applicable
== END 2018-06-25 11:10 | disposition home or self-care (01) | DRG 806 ==
LOC: WP 15:10
PROVIDERS: Admitting Provider Obstetrics & Gynecology; Referring Provider Obstetrics & Gynecology; Visit Provider Obstetrics & Gynecology
DX: O36.4XX0 Maternal care for intrauterine death, not applicable or unspecified (principal); O86.4 Pyrexia of unknown origin following delivery; Z3A.24 24 weeks gestation of pregnancy; Z37.1 Single stillbirth
CPT/HCPCS: 59050; 80307; 81001; 83036; 85027; 85384; 85610; 85730; 86644; 86645; 86777; 86778; 86850; 86900; 88307; 99218; J7120; A4216; G0378; J2405

== ENCOUNTER → 2018-07-14 14:11 | Outpatient (CLI) | payer OTHER, SELFPAY ==
[2018-06-23 15:21] VITALS: BMI 27.0
--- NOTE | 2018-07-14 14:16 | US_ITS ---
STUDY: ULTRASOUND TRANSVAGINAL CLINICAL: Female, 28 years old. Status post delivery of 24 weeks demise. Question retained products of conception. Continued bleeding. TECHNIQUE: Transabdominal and Transvaginal COMPARISON: 07/14/2018. FINDINGS: Normal uterine size measuring 8.8 x 5.6 x 3.3 cm in maximal craniocaudal dimension. There are no myometrial masses. Normal endometrial thickness measuring 7.4 mm. Endometrial echoes are hyperechoic. In the lower endometrial cavity in the lower uterine segment, focal heterogeneous masslike structure is seen approximately 1.7 x 3.0 x 2.5 cm. It has vascularity and is consistent with retained products of conception. Small amount of fluid seen in the endocervical canal. Normal right ovary, measuring 2.6 x 1.5 x 1.9 cm. There are multiple follicles without a dominant cyst. Normal left ovary, measuring 2.1 x 1.6 x 1.9 cm. There are multiple follicles without a dominant cyst. There is no free fluid in the pelvis. US/Pelvic (Non ) IMPRESSION: Findings consistent with 3 cm focal retained products of conception in the lower uterine segment. Electronically Signed: Marcel Santacruz MD at 16:37 EST , Service support ,
--- NOTE | 2018-07-14 14:42 | US_ITS ---
STUDY: ULTRASOUND TRANSVAGINAL CLINICAL: Female, 28 years old. Status post delivery of 24 weeks demise. Question retained products of conception. Continued bleeding. TECHNIQUE: Transabdominal and Transvaginal COMPARISON: 07/14/2018. FINDINGS: Normal uterine size measuring 8.8 x 5.6 x 3.3 cm in maximal craniocaudal dimension. There are no myometrial masses. Normal endometrial thickness measuring 7.4 mm. Endometrial echoes are hyperechoic. In the lower endometrial cavity in the lower uterine segment, focal heterogeneous masslike structure is seen approximately 1.7 x 3.0 x 2.5 cm. It has vascularity and is consistent with retained products of conception. Small amount of fluid seen in the endocervical canal. Normal right ovary, measuring 2.6 x 1.5 x 1.9 cm. There are multiple follicles without a dominant cyst. Normal left ovary, measuring 2.1 x 1.6 x 1.9 cm. There are multiple follicles without a dominant cyst. There is no free fluid in the pelvis. US/Transvaginal Non- IMPRESSION: Findings consistent with 3 cm focal retained products of conception in the lower uterine segment. Electronically Signed: Marcel Santacruz MD at 16:37 EST , Service support ,
== END ==
PROVIDERS: Referring Provider Obstetrics & Gynecology; Visit Provider Obstetrics & Gynecology
DX: O03.6 Delayed or excessive hemorrhage following complete or unspecified spontaneous abortion (principal)
CPT/HCPCS: 76830; 76856; 93976

== ENCOUNTER 2018-07-17 10:22 | Day surgery (SDC) | payer OTHER, SELFPAY ==
[2018-07-17] VITALS (7 sets, daily range): BP systolic 114–130; BP diastolic 79–99; PULSE 80–99; RESP 16–18; TEMP 35.9–37.5; O2SAT 100; BMI 25.9
[2018-07-17 11:30] LABS: Hemoglobin 11.4 g/dl (12.0-15.0); Mean Corp Hgb Conc 32.6 g/gl (32-36); Mean Corpuscular Hgb 29.5 pg (27.0-32.0); Mean Corpuscular Volume 90.4 fL (81-99); Mean Platelet Vol. 9.7 fl (6.2-12.0); Platelet Count 307 K/mm3 (150-450); RBC Distribution Width CV 12.9 % (11.6-14.6); RBC Distribution Width SD 42.3 fl (35.1-43.9); Red Blood Count 3.87 M/mm3 (4.2-5.4); White Blood Count 8.6 K/mm3 (4.4-11.0)
[2018-07-17 11:31] LABS: Scan Indicated on CBC? Y/N NO
[2018-07-17 11:36] LABS: International Normalized Ratio 1.1; Prothrombin Time (Protime)PT. 13.7 SECONDS (11.7-14.9)
[2018-07-17 11:37] LABS: Partial Thromboplast Time 38.1 Seconds (24.1-36.2)
--- NOTE | 2018-07-17 12:30 | POC_PTH ---
PATIENT: CLARISA REYES LOC: [facility] [place] U#:[id number] AGE/SX: 28/F ROOM: RE07/17/[address]: Dr. Joana Wilkins MD : 1990 BED: DIS: 07/17/2018 SPEC #: [id number] RECD: 07/17/18 15:17 STATUS: YOVANA RECat #: [id number] CARLOS: 07/17/18 12:[address]: Joana Tang DEPT: SURGICAL PATHOLOGY RECD BY: Wayne Quintana ENTERED: 07/18/18 07:51 SP TYPE: PROD CONC OTHR DR: Albertina Encarnacion, MOPHEAD SEWER-Jovanny Tissues: Product of conception, NOS Procedures: Surgery Specimen Level IV HEADER OPERATION: Dilation and curettage, suction PRE-OP DIAGNOSIS: Retained products of conception after delivery without hemorrhage, spontaneous vaginal delivery, 23 weeks gestation of TISSUE SUBMITTED: Retained products of conception MICROSCOPIC DIAGNOSIS Retained products of conception: Pieces of placental tissue with focal area of infarction, myometrium and endometrial tissue (retained products of conception). LEE:evita 07/19/18 MICROSCOPIC DESCRIPTION Slides are reviewed. GROSS DESCRIPTION Received in fixative is one container labeled with the patient's name and designated retain products of conception. The specimen consists of multiple fragments of hemorrhagic soft tissue mixed with blood clot that in aggregate measure 6 x 6 x 2.5 cm. No obvious tissue is identified. Director Of Sales Marketing tissue is submitted in three cassettes. / LEE:evita 07/18/18 TC:5 CPT: 37238
--- NOTE | 2018-07-17 12:40 | HP.PCM_ITS ---
Problem List (1) Retained products of conception after delivery without hemorrhage Status: Acute History of Present Illness Date of Admission: 07/17/18 Chief Complaint: schedule surgery The patient is a 28 year old F 1 para 0100 admitted for schedule dilation and curettage for retained products of conception. She had a 24w IUFD and delivered on 06/24/18 following induction of labor. She started having increased vaginal bleeding x 1 day last week, which slowed, however, continued to pass clots. US 07/14/18 suggested retained products. Past Medical History Past Medical History (Chronic Problems): Chronic Problems (Last Updated 06/23/18 @ 15:56 by Joana Sims MD) Osteoporosis (Chronic) POTS (postural orthostatic tachycardia syndrome) (Chronic) Has port - infuses NS twice weekly with heparin flush Medical History: Medical History (Last Updated 06/23/18 @ 15:56 by Joana Sims MD) Osteoporosis (Chronic) M81.0 POTS (postural orthostatic tachycardia syndrome) (Chronic) R00.0, I95.1 Has port - infuses NS twice weekly with heparin flush Multiple fractures T07.XXXA Allergies Sulfa (Sulfonamide Antibiotics) Allergy (Intermediate, Verified 06/23/18 15:22) Hives latex Allergy (Verified 06/23/18 15:22) Rash Home Medications: Ambulatory Orders Medication Instructions Recorded 0.9% Normal Saline 1,000 ml IV QWEEK 06/06/18 Vits [Prenatabs FA] 1 tablet PO DAILY 06/06/18 Cholecalciferol (Vitamin D3) 1,000 unit PO DAILY 06/16/18 [Vitamin D3] Phytonadione (Vit K1) [Vitamin K] 100 mcg PO DAILY 06/16/18 Surgical History: no surgical history Psychiatric History: No pertinent psych hx [employer] History: No pertinent [employer] history Lives: Spouse/ Significant Other Smoking Status: Never smoker Tobacco Use: Non-smoker Alcohol: None Drugs: None VTE Information - Inpt Only VTE Present on Admission: No VTE Mechan Device Prophylaxis: SCD's Patient Problems: Active and Suspected Problems (Last Updated 06/23/18 @ 15:56 by Joana Wilkins MD) Retained products of conception after delivery without hemorrhage (Acute) - Physical Exam General: Alert, Oriented x3, Cooperative, No apparent distress HEENT: Atraumatic, Normocephalic Lungs: Normal air movement Cardiovascular: Regular Rhythm Abdomen: Soft, Non Tender, Non-Distended Extremities: No edema, No Calf Tenderness Neurological: Neuro grossly intact Psych/Mental Status: Normal Affect, Appropriate, Alert and oriented to time, place, person, mood and affect Vital Signs Temp Pulse Resp BP Pulse Ox 96.7 F L 88 16 128/79 H 100 07/17/18 11:11 07/17/18 11:11 07/17/18 11:11 07/17/18 11:11 07/17/18 11:11 Oxygen Delivery Method Room Air Weight: 77.38 kg Body Mass Index (BMI) 25.9 Intake and Output for Last 24 Hours 07/15/18 07/16/18 07/17/18 22:59 23:59 23:59 Output Total 100 / 100 Balance -100 / -100 Laboratory Tests Past 24 Hrs 07/17/18 07/17/18 07/17/18 11:20 11:20 11:20 WBC 8.6 RBC 3.87 L Hgb 11.4 L Hct 35.0 L MCV 90.4 MCH 29.5 MCHC 32.6 RDW 12.9 RDW Differential 42.3 Plt Count 307 MPV 9.7 PT 13.7 INR 1.1 APTT 38.1 H Blood Type O POSITIVE Antibody Screen NEGATIVE Assessment/Plan All Active Problems (Last Updated 06/23/18 @ 15:56 by Joana Sims MD) Retained products of conception after delivery without hemorrhage (Acute) (spontaneous vaginal delivery) (Acute) 23 weeks gestation of (Acute) Fall (Acute) 24 weeks gestation of (Acute) IUFD at 20 weeks or more of gestation (Acute) 28yo with retained POCs for suction dilation and curettage. Consents reviewed and signed. Proceed as planned.
[2018-07-17] MEDS: Methylergonovine 0.2 MG/ML Ampul IM (13:26)
--- NOTE | 2018-07-17 13:59 | DCINST_ITS ---
Discharge Diet: No Restrictions Discharge Activity: Return to Normal Activity, May Shower, - - No driving today, no tub bath for 1 weeks May resume sexual activity in: - - 2-4 weeks Call your doctor if you observe: Fever of 101 or Higher, Inability to urinate, Inability to have a bowel movement, Using more than one pad per hour, Shortness of breath, Chest pain, Uncontrolled pain Allergies/Adverse Reactions: Allergies Sulfa (Sulfonamide Antibiotics) Allergy (Intermediate, Verified 06/23/18 15:22) Hives latex Allergy (Verified 06/23/18 15:22) Rash Medications to take at Discharge 0.9% Normal Saline 1,000 ml IV QWEEK 06/06/18 Vits [Prenatabs FA] 1 tablet PO DAILY 06/06/18 Cholecalciferol (Vitamin D3) [Vitamin D3] 1,000 unit PO DAILY 06/16/18 Phytonadione (Vit K1) [Vitamin K] 100 mcg PO DAILY 06/16/18 Primary Care Physician: Albertina Encarnacion NP-C [Primary Care Provider] - Test Results: Test results from this visit will be discussed in further detail at your follow- up appointment, if applicable. Please Follow Up With: Joana Sims MD - visit/postop When: 1-2 weeks
--- NOTE | 2018-07-17 14:05 | OP.PCM_ITS ---
Problem List (1) Retained products of conception after delivery without hemorrhage Status: Acute Report of Operation Date of Procedure: 07/17/18 Pre-Operative Diagnosis: Retained products of conception Post-Operative Diagnosis: Retained products of conception Surgery/Procedure Performed:: Suction dilation and curettage Description of Surgical Findings:: Retained products of conception Type of Anesthesia:: MAC Anesthesiologist: Randal Martinez Special Medications: Methergine 0.2 mg IM Specimen's removed: Products of conception Estimated Blood Loss (mL): 50 Fluids Replaced: 700 mL Description of Procedure: Indications: Patient is a 28-year-old 1 para 0100 status post stillborn infant on 06/24/2018 found to have retained products of conception. She was counseled regarding management options and opted for to proceed with suction dilatation and curettage. Risks, benefits, indications and alternatives of procedure were reviewed at length. Procedure: The patient was taken to the operating room and Center was performed. She is placed in the dorsal supine position and induced under MAC. She was then repositioned to dorsolithotomy and the perineum prepped and draped in sterile fashion. Straight catheterization of the bladder was performed. A bivalve speculum was placed into the vagina and the cervix grasped at the anterior cervical lip using a single-tooth tenaculum. The uterus was sounded and cervix subsequently dilated. Suction curettage was performed using 10 mm curved curette and alternately sharp curettage was performed until there was no further tissue retrieval. There was an increase in bleeding without hemorrhage that improved following Methergine injection. The intraoperative ultrasound was performed demonstrating a thin endometrial stripe with no flow to the endome trium. The procedure was complete. The tenaculum and speculum were removed from the vagina. The patient was placed in the dorsal supine position, awakened and exported to the recovery room without complication. Sponge counts were correct x2. The patient tolerated the procedure well. - Complications None - Admit VTE Documentation VTE Present on Admission: No VTE Mechan Device Prophylaxis: SCD's VTE Pharm Prophylaxis ordered?: No
== END 2018-07-17 16:14 | disposition home or self-care (01) ==
LOC: SDC 10:22 → AC 10:23
PROVIDERS: Family Provider Nurse Practitioner Family; PCP Nurse Practitioner Family; Referring Provider Obstetrics & Gynecology; Visit Provider Obstetrics & Gynecology
PROC: (CPT 59160; principal; 2018-07-17 12:15)
DX: O73.1 Retained portions of placenta and membranes, without hemorrhage (principal); M81.0 Age-related osteoporosis without current pathological fracture; K58.9 Irritable bowel syndrome, unspecified; Z79.899 Other long term (current) drug therapy
CPT/HCPCS: 00940; 59160; 85027; 85610; 85730; 86850; 86900; 88305; J7120; A4216; J2405

== ENCOUNTER → 2018-10-24 11:11 | Outpatient (CLI) | payer OTHER, SELFPAY ==
[2018-07-17 11:11] VITALS: BMI 25.9
--- NOTE | 2018-10-24 11:14 | MRI_ITS ---
HISTORY: headaches, hx arachnoid cyst, CONKLIN syndrome EXAMINATION: MR Brain W/O Contrast TECHNIQUE: Multiplanar and multisequence MR images of the brain were obtained without gadolinium. IV Contrast dosage and agent: None. COMPARISON: None FINDINGS: PARANASAL SINUSES AND MASTOID AIR CELLS: Clear. CALVARIUM: Unremarkable. INTRACRANIAL HEMORRHAGE: No evidence of intracranial hemorrhage. BRAIN PARENCHYMA: No acute infarct. Cerebrum, cerebellum and brainstem are unremarkable. Normal sella turcica, pituitary gland, infundibular stalk, optic chiasm and hypothalamus. The internal auditory canals are patent. No mass effect or midline shift. CSF SPACES: Appropriate for age. There is no hydrocephalus. Patent basal cisterns. Small midline posterior arachnoid cyst incidentally noted in the posterior fossa. VASCULAR SYSTEM: Normal flow voids in the major intracranial circulation. ORBITS: Both globes, extraocular muscles, optic nerves and retrobulbar fat appear unremarkable. MRI/Brain without Contrast IMPRESSION: Negative MRI Brain without contrast. at 1237 Reported and signed by: Shan Hawkins MD Electronically Signed: Shan Hawkins, at 12:35 EDT Tel , Service support ,
== END ==
PROVIDERS: Family Provider Nurse Practitioner Family; PCP Nurse Practitioner Family; Referring Provider Electrodiagnostic Medicine; Visit Provider Electrodiagnostic Medicine
DX: G93.0 Cerebral cysts (principal)
CPT/HCPCS: 70551

== ENCOUNTER 2018-10-30 20:32 | Emergency (ER) | payer OTHER, SELFPAY ==
[2018-07-17 11:11] VITALS: BMI 25.9
[2018-10-30 20:33] VITALS: BP 158/75; PULSE 122; RESP 16; TEMP 36.7; O2SAT 99; BMI 27.0
--- NOTE | 2018-10-30 20:40 | EKG12_ITS ---
Test Reason : Blood Pressure : / mmHG Vent. Rate : 103 BPM Atrial Rate : 103 BPM P-R Int : 128 ms QRS Dur : 078 ms QT Int : 328 ms P-R-T Axes : 074 080 046 degrees QTc Int : 429 ms Sinus tachycardia Confirmed by CARLOS MARCELO, MIGUEL ([id number]), editor managing director GINA MARCH ([id number]) on 11/01/2018 8:02:45 AM Referred By: Kalen Kiser Confirmed By:MIGUEL GONZALEZ MD
[2018-10-30 21:32] VITALS: BP 166/110; PULSE 115; RESP 17; O2SAT 97
--- NOTE | 2018-10-30 22:54 | ED.VIS.GEN ---
History of Present Illness Chief Complaint: Syncope Informant: Patient Narrative: Presents with 2 separate complaints. Complaint #1 is syncope. She has syncope a couple times every week. She has pots syndrome. Patient has had this for 14 years. She gets intravenous normal saline infusions twice a week to help combat this. She had an infusion yesterday. She does not think she is significantly dehydrated. The first time she was walking back from the bathroom. The next time she was just sitting on the couch. This is not new for her. She denies any chest pain or shortness of breath. The patient second complaint is she is having some left flank pain. She describes a sharp pain that waxes and wanes and is intermittent. No blood in her urine. Denies . Last menstrual period a week ago. She states she has intermittent nausea. She is had 3 episodes of diarrhea since yesterday. No bad food exposures. No sick contacts. History of remote kidney stone multiple years ago that she passed on her own. No home treatment. - Past Medical History (1) 23 weeks gestation of Status: Acute (2) 24 weeks gestation of Status: Acute (3) Fall Status: Acute (4) IUFD at 20 weeks or more of gestation Status: Acute (5) Retained products of conception after delivery without hemorrhage Status: Acute (6) (spontaneous vaginal delivery) Status: Acute (7) Osteoporosis Status: Chronic (8) POTS (postural orthostatic tachycardia syndrome) Status: Chronic Comment: Has port - infuses NS twice weekly with heparin flush Past Medical History - Allergies and Home Meds Allergies/Adverse Reactions: Allergies Sulfa (Sulfonamide Antibiotics) Allergy (Intermediate, Verified 10/30/18 20:38) Hives latex Allergy (Verified 10/30/18 20:38) Rash Primary Care Physician: Albertina Encarnacion NP-C [Primary Care Provider] - Prior records reviewed: Yes Surgical History: no surgical history Lives: Spouse/ Significant Other Smoking Status: Never smoker Alcohol: None Drugs: None Review of Systems General: Denies: Chills, Fever, Sweats Eyes: Denies: Visual changes - bilaterally, Diplopia ENT: Denies: Rhinorrhea, Sore throat Cardiovascular: Reports: Heart racing. Denies: Chest pain, Palpitations Respiratory: Denies: Dyspnea, Cough, Dyspnea on exertion Gastrointestinal: Reports: Nausea, - - Left side pain. Denies: Abdominal pain, Vomiting, Diarrhea, Melena, Hematochezia Genitourinary: Denies: Dysuria, Hematuria, Frequency Musculoskeletal: Denies: Back pain, Extremity Pain Skin: Denies: Rash, Wounds Neurological: Denies: Headache, Weakness, Numbness Physical Exam Vital Signs/Narrative: Vital Signs Temp Pulse Resp BP Pulse Ox 10/30/18 21:32 115 H 17 166/110 H 97 10/30/18 20:33 98.1 F 122 H 16 158/75 H 99 General: Well nourished, Well developed, No Acute Distress Head: Normocephalic, Atraumatic Eyes: Perrl, EOMI ENT: Moist mucous membranes, No rhinorrhea Neck: Supple, Nontender Cardiovascular: Regular rhythm, No murmurs, Tachycardia. Negative for: Regular rate Respiratory: No distress, CTA bilaterally, Chest nontender Abdomen: Soft, Nontender, Nondistended, Normal bowel sounds Back: Nontender, Normal Inspection Extremities: Nontender, No edema Skin: Normal color, No rash Neurological: Alert, Oriented x3, Cranial nerves II-XII grossly intact, Normal Strength, Normal Sensation Psychological: Normal affect, Normal Mood Diagnostic/Tx/Re-eval - Rhythm Strip Rhythm Strip: Sinus Tach - Medical Decision Making Patient has 2 separate complaints. The pots syndrome is not really why she came in. She came in more for the left-sided flank pain. Given a dose IV fluids, Toradol, Zofran. G shows sinus tachycardia at 103. No acute ischemic findings. Lab work obtained. Lab work returns. No elevation white blood cell count. Electrolytes unremarkable. Liver function tests show no hepatitis. Lipase is normal. Urinalysis shows no red blood cells or infection. is negative. Patient felt much better after IV fluid bolus. I do not know the reason she is having the left-sided pain. I have a low suspicion for kidney stone with no blood in her urine. She appears comfortable as well. I do not think she needs an acute CAT scan. She will take ibuprofen and Motrin at home. She will follow-up as an outpatient. She will return if she worsens. Syncope is not a new problem for her. ED Disposition - Plan for ED Patient: Diagnosis: Syncope, POTS (postural orthostatic tachycardia syndrome), Left flank pain Instructions: FLANK PAIN, Uncertain Cause Referrals: Albertina Encarnacion NP-C [Primary Care Provider] -
[2018-10-30 23:20] LABS: Bacteria 0 SEEN /hpf (None Seen); Mucous, Urine 0 SEEN /hpf (<or=2+); Red Blood Cells-Urine 0 SEEN /hpf (0-5); White Blood Cells 0 SEEN /hpf (0-5)
[2018-10-30 23:24] LABS: Color, Urine Yellow (Yellow); Glucose, Dipstick Normal (Normal); Ketone-Dipstick Negative (Negative); Leukocyte Esterase-Dipstick Negative /ul (Negative); Nitrite-Dipstick Negative (Negative); Occult Blood-Urine Negative /ul (Negative); Protein-Dipstick Negative (Negative); Urine Bilirubin Dipstick Negative (Negative); Urine Clarity Sl. Cloudy (Clear); Urine Urobilinogen Normal (Normal)
[2018-10-30 23:30] LABS: Internal QC Validated? YES +Cl - CLEAR BKGD; Pregnancy, Urine Negative Negative
[2018-10-30] MEDS: Ondansetron 4 MG/2 ML Vial IV (23:34)
[2018-10-30] MEDS: 0.9% Normal Saline 1,000 ML 1000 ML IV (23:34)
[2018-10-30] MEDS: Ketorolac 15 MG/ML Vial 30 MG IV (23:34)
[2018-10-30 23:38] LABS: Amorphous Sediment 1+ PHOS; Squamous Epithelial Cells - UA 0-5 SEEN /hpf (5-10)
[2018-10-30 23:39] VITALS: BP 160/96; PULSE 84; RESP 15; O2SAT 97
[2018-10-30 23:39] LABS: Absolute Lymphocyte Count 0.61 X10^3/ul (0.83-4.51); Absolute Neutrophil Count 7.9 X10^3/uL (2.0-7.7); Basophil# 0.01 X10^3/uL; Basophil% 0.1 % (0-1); Eosinophil# 0.12 X10^3/uL; Eosinophils% 1.3 % (0-5); Hematocrit 40.3 % (37-47); Hemoglobin 13.2 g/dl (12.0-15.0); Lymphocyte # 0.61 X10^3/ul (4.0); Lymphocyte % 6.6 % (19-41); Mean Corp Hgb Conc 32.8 g/gl (32-36); Mean Corpuscular Hgb 27.2 pg (27.0-32.0); Mean Corpuscular Volume 82.9 fL (81-99); Mean Platelet Vol. 10.3 fl (6.2-12.0); Monocyte# 0.56 X10^3/uL; Monocyte% 6.1 % (0-10); Neutrophil # 7.88 X10^3/uL (2.7-7.7); Neutrophil % 85.8 % (47-70); Platelet Count 237 K/mm3 (150-450); RBC Distribution Width CV 13.9 % (11.6-14.6); Red Blood Count 4.86 M/mm3 (4.2-5.4); White Blood Count 9.2 K/mm3 (4.4-11.0)
[2018-10-30 23:40] VITALS: BP 143/88; BP 157/90; BP 167/111; PULSE 104; PULSE 121; PULSE 92
[2018-10-30 23:46] LABS: POSITIVE COUNT NO; POSITIVE DIFFERENTIAL NO; POSITIVE MORPHOLOGY NO
[2018-10-31] LABS: AST(SGOT) 13 U/L (15-37); Alanine Aminotransfer ALT/SGPT 15 U/L (13-56); Albumin, Serum 4.1 g/dL (3.2-5.0); Alkaline Phosphatase 43 U/L (45-117); Anion Gap 5 (5-15); BUN 15 mg/dL (7-18); BUN/Creat Ratio 20.2 RATIO (10-20); Bilirubin, Direct 0.15 mg/dL (0.00-0.30); Calcium,Total 8.9 mg/dL (8.5-10.1); Chloride 105 mmol/L (98-107); Creatinine, Serum 0.74 mg/dL (0.55-1.02); EST Glomerular Filtration Rate 99 mL/min (>60); Est Glom Filt Rate - Afr Amer 120 mL/min (>60); Globulin 3.6 g/dL (2.2-4.2); Glucose 110 mg/dL (74-106); Lipase 77 U/L (73-393); Potassium 3.7 mmol/L (3.5-5.1); Protein, Total 7.7 g/dL (6.4-8.2); Sodium Level 136 mmol/L (136-145)
[2018-10-31 00:32] VITALS: BP 149/83; PULSE 101; RESP 16; O2SAT 99
--- NOTE | 2018-10-31 00:32 | ED.RN ---
PT REQUESTED TO LEAVE PORT ACCESSED AT THIS TIME.
== END 2018-10-31 00:46 | disposition home or self-care (01) ==
PROVIDERS: Emergency Provider Emergency Medicine; Family Provider Nurse Practitioner Family; PCP Nurse Practitioner Family
DX: R10.9 Unspecified abdominal pain (principal); R55 Syncope and collapse; R00.0 Tachycardia, unspecified; R19.7 Diarrhea, unspecified; R11.0 Nausea; M81.0 Age-related osteoporosis without current pathological fracture; Z88.2 Allergy status to sulfonamides; Z87.442 Personal history of urinary calculi
CPT/HCPCS: 36591; 36592; 80048; 80076; 81001; 81025; 83690; 85025; 93005; 96361; 96374; 96375; 99284; J7030; A4216; J2405

== ENCOUNTER → 2018-11-01 20:00 | Outpatient (CLI) | payer OTHER, SELFPAY ==
[2018-07-17 11:11] VITALS: BMI 25.9
== END ==
PROVIDERS: Family Provider Nurse Practitioner Family; PCP Nurse Practitioner Family; Referring Provider Electrodiagnostic Medicine; Visit Provider Electrodiagnostic Medicine
DX: G47.33 Obstructive sleep apnea (adult) (pediatric) (principal)
CPT/HCPCS: 95810

== ENCOUNTER → 2018-11-08 12:53 | Outpatient (CLI) | payer OTHER, SELFPAY ==
[2018-10-30 20:33] VITALS: BMI 27.0
[2018-11-08] MEDS: 0.9% Normal Saline 1,000 ML 400 ML IV (13:10)
[2018-11-08 13:36] VITALS: BP 149/92; PULSE 104; RESP 16; TEMP 36.7; O2SAT 100; BMI 27.0
== END ==
PROVIDERS: Family Provider Nurse Practitioner Family; PCP Nurse Practitioner Family
DX: I95.1 Orthostatic hypotension (principal); R00.0 Tachycardia, unspecified
CPT/HCPCS: 96360; 96361 ×2; J7030; A4216

== ENCOUNTER 2019-01-09 18:22 | Emergency (ER) | payer OTHER, SELFPAY ==
[2018-11-08 13:36] VITALS: BMI 27.0
[2019-01-09 18:23] VITALS: BP 141/89; PULSE 86; RESP 16; TEMP 36.4; O2SAT 100; BMI 26.6
--- NOTE | 2019-01-09 19:58 | ED.VISSUMM ---
- ER Visit Summary Date of Service: 01/09/19 Chief Complaint: Pain around incision History of Present Illness: The patient is a 28 F presenting with pain around her old port incision. This has been ongoing for the past 3 days. Patient had a port placed in her right chest that was removed several months ago. She had a new port placed in August. She receives IV fluids twice weekly for history of pots syndrome. She denies fever or other complaints. Physical Examination: Vitals are stable. Patient is afebrile. Alert no acute distress. HEENT exam is unremarkable. Neck is supple. Lungs are clear and equal bilaterally. Well-healed scar tissue right chest. No surrounding erythema or fluctuance. Heart is regular rate and rhythm. Abdomen is soft nontender nondistended. Extremities are unremarkable. Skin is warm and dry. Remainder of exam is unremarkable. Emergency Department Course and Treatment: Bedside ultrasound shows no obvious fluid collection. No external signs of infection. Patient otherwise feels well. Advised to follow-up with her primary care physician. Advised to return to ED if worsening complaints. Disposition: Discharge home Impression: Wound check This note was generated with [employer] dictation software. It may contain incorrect words, spelling, and punctuation that were not noted in review of the chart prior to signing ED Disposition - Plan for ED Patient: Referrals: Albertina Encarnacion NP-C [Primary Care Provider] -
--- NOTE | 2019-01-09 20:00 | DCINST.ED_ITS ---
ED Disposition - Plan for ED Patient: Instructions: POST OP WOUND CHECK, Pain Referrals: Albertina Encarnacion, CRYPTOZOOLOGIST-C [Primary Care Provider] -
--- NOTE | 2019-01-09 20:00 | ED.DEP ---
ED Disposition - Plan for ED Patient: Instructions: POST OP WOUND CHECK, Pain Referrals: Albertina Encarnacion, METAL PAINTER-C [Primary Care Provider] -
[2019-01-09 20:22] VITALS: BP 130/76; PULSE 75; RESP 16; O2SAT 99
== END 2019-01-09 20:22 | disposition home or self-care (01) ==
LOC: ED 19:33
PROVIDERS: Emergency Provider Emergency Medicine; Family Provider Nurse Practitioner Family; PCP Nurse Practitioner Family
DX: Z45.2 Encounter for adjustment and management of vascular access device (principal); I49.8 Other specified cardiac arrhythmias; Z79.899 Other long term (current) drug therapy
CPT/HCPCS: 99282

== ENCOUNTER 2019-04-26 17:25 | Emergency (ER) | payer OTHER, SELFPAY ==
[2019-04-26 17:26] VITALS: BP 163/94; PULSE 97; RESP 18; TEMP 36.9; O2SAT 100; BMI 26.6
--- NOTE | 2019-04-26 17:38 | EKG12_ITS ---
Test Reason : CP Blood Pressure : / mmHG Vent. Rate : 104 BPM Atrial Rate : 104 BPM P-R Int : 134 ms QRS Dur : 074 ms QT Int : 326 ms P-R-T Axes : 066 064 036 degrees QTc Int : 428 ms Sinus tachycardia Otherwise normal ECG Confirmed by RADHA MARCELO, ENRIKE ([id number]), film editor TEJ NORMAN ([id number]) on 04/30/2019 11:33:07 AM Referred By: TELLY Confirmed By:ENRIKE GARCIA MD
--- NOTE | 2019-04-26 17:40 | RAD_ITS ---
STUDY: X-RAY CHEST REASON FOR EXAM: Female, 29 years old. Chest pain TECHNIQUE: Single frontal view of the chest. COMPARISON: None. FINDINGS: Cardiac silhouette unremarkable. Pulmonary vascularity unremarkable. Aorta unremarkable. No focal airspace opacities. No pleural effusions. Upper abdomen unremarkable. Osseous structures intact. No pneumothorax. RAD/Chest 1 View (Portable) IMPRESSION: No acute cardiopulmonary findings Electronically Signed: Barrera Rodriguez, at 18:10 EST Tel , Service support ,
[2019-04-26] MEDS: 0.9% Normal Saline 1,000 ML 1000 ML IV (17:50)
[2019-04-26] MEDS: Ketorolac 30 MG/ML Syringe IV (17:54)
[2019-04-26 18:02] LABS: Absolute Lymphocyte Count 2.14 X10^3/uL (0.83-4.51); Absolute Neutrophil Count 5.6 X10^3/uL (2.0-7.7); Basophil# 0.03 X10^3/uL; Basophil% 0.4 % (0-1); Eosinophil# 0.25 X10^3/uL; Eosinophils% 2.9 % (0-5); Hematocrit 44.1 % (37-47); Hemoglobin 14.6 g/dL (12.0-15.0); Lymphocyte # 2.14 X10^3/ul (4.0); Lymphocyte % 25.1 % (19-41); Mean Corp Hgb Conc 33.1 g/dL (32-36); Mean Corpuscular Hgb 29.8 pg (27.0-32.0); Mean Platelet Vol. 10.1 fl (6.2-12.0); Monocyte# 0.55 X10^3/uL; Monocyte% 6.4 % (0-10); NRBC Flagged by Analyzer 0 % (0-5); Neutrophil # 5.55 X10^3/uL (2.7-7.7); Platelet Count 325 K/mm3 (150-450); RBC Distribution Width CV 12.9 % (11.6-14.6); RBC Distribution Width SD 42.3 fl (35.1-43.9); White Blood Count 8.5 K/mm3 (4.4-11.0)
--- NOTE | 2019-04-26 18:04 | ED.DCSUM_ITS ---
- ER Visit Summary Date of Service: 04/26/19 Chief Complaint: Chest pain History of Present Illness: The patient is a 29 F presenting with chest pain. She states this started 2 days ago and has been constant pain left-side of her chest. She states she passed out twice on Tuesday. She has a history of POTS. She has passed out frequently with this syndrome. She was previously on saline infusions which were stopped last month. She follows with [facility] and they advised her to discontinue infusions as they did not believe that they were helping. She takes no new medications. She complains of chest pain and shortness of breath. She has a headache which she states is typical for her and no worse than usual. She denies injury with the falls. She states she feels the syncope coming on and is able to lower herself to the ground. She denies other complaints. Physical Examination: Vitals are stable. Patient is afebrile. Alert no acute distress. HEENT exam is unremarkable. Neck is supple. Lungs are clear and equal bilaterally. Heart is regular rate and rhythm. Abdomen is soft nontender nondistended. Extremities are unremarkable. Skin is warm and dry. No focal neurologic deficit. Remainder of exam is unremarkable. Emergency Department Course and Treatment: Patient was given IV fluids, Toradol. EKG is sinus tachycardia rate of 104. Chest x-ray shows no acute process. CBC, chemistries unremarkable. Troponin is negative. D-dimer normal. hCG negative. On reevaluation, patient is resting comfortably. Her pain has improved. She is advised to follow-up with her primary care physician. Advised return to the ED for worsening complaints. Disposition: Discharge home Impression: Atypical chest pain This note was generated with [employer] dictation software. It may contain incorrect words, spelling, and punctuation that were not noted in review of the chart prior to signing ED Disposition - Plan for ED Patient: Instructions: CHEST PAIN, Uncertain Cause Referrals: Albertina Encarnacion NP-C [Primary Care Provider] -
[2019-04-26 18:31] VITALS: BP 116/80; PULSE 80; RESP 16; O2SAT 99
[2019-04-26 18:36] LABS: Internal QC Validated? YES +Cl - CLEAR BKGD; Pregnancy, Serum, hCG Quali. NEGATIVE Negative
[2019-04-26 18:45] LABS: D-Dimer Quantitative (DVT/PE) 0.34 FEU/ug/m (0.27-0.49)
[2019-04-26 18:55] LABS: Anion Gap 7 (5-15); BUN 17 mg/dL (7-18); Calcium,Total 9.1 mg/dL (8.5-10.1); Chloride 105 mmol/L (98-107); Creatinine, Serum 0.85 mg/dL (0.55-1.02); EST Glomerular Filtration Rate 84 mL/min (>60); Est Glom Filt Rate - Afr Amer 102 mL/min (>60); Glucose 105 mg/dL (74-106); Potassium 3.7 mmol/L (3.5-5.1); Sodium Level 140 mmol/L (136-145)
[2019-04-26 19:06] VITALS: BP 128/85; PULSE 73; RESP 16; O2SAT 94
--- NOTE | 2019-04-26 19:43 | ED.RN ---
Called lab for troponin results, per tech, 10 more minutes.
--- NOTE | 2019-04-26 20:05 | DCINST.ED_ITS ---
ED Disposition - Plan for ED Patient: Instructions: CHEST PAIN, Uncertain Cause Referrals: Albertina Encarnacion, HEAD SAWYER-C [Primary Care Provider] -
--- NOTE | 2019-04-26 20:05 | ED.DEP ---
ED Disposition - Plan for ED Patient: Instructions: CHEST PAIN, Uncertain Cause Referrals: Albertina Encarnacion, CHEMICAL DETECTION EXPERT-C [Primary Care Provider] -
[2019-04-26 20:06] VITALS: BP 118/77; PULSE 73; RESP 16; O2SAT 98
== END 2019-04-26 20:21 | disposition home or self-care (01) ==
PROVIDERS: Emergency Provider Emergency Medicine; Family Provider Nurse Practitioner Family; PCP Nurse Practitioner Family
DX: R07.89 Other chest pain (principal); R51 Headache; R06.00 Dyspnea, unspecified; I49.8 Other specified cardiac arrhythmias; Z87.442 Personal history of urinary calculi
CPT/HCPCS: 71045; 80048; 84484; 84703; 85025; 85379; 93005; 96361; 96374; 99284; J7030; A4216

== ENCOUNTER → 2019-05-17 16:59 | Outpatient (CLI) | payer OTHER, SELFPAY ==
[2019-04-26 17:26] VITALS: BMI 26.6
[2019-05-17 18:45] LABS: Free T3 3.2 pg/mL (2.18-3.98); T4 Free Direct 1.03 ng/dL (0.76-1.46); Thyroid Stim Hormone (TSH) 1.45 uIU/mL (0.358-3.74)
== END ==
PROVIDERS: Family Provider Nurse Practitioner Family; PCP Nurse Practitioner Family; Referring Provider Obstetrics & Gynecology; Visit Provider Obstetrics & Gynecology
DX: N93.9 Abnormal uterine and vaginal bleeding, unspecified (principal); N92.0 Excessive and frequent menstruation with regular cycle
CPT/HCPCS: 36415; 84439; 84443; 84481

== ENCOUNTER → 2019-10-25 12:00 | Outpatient (CLI) | payer OTHER, SELFPAY | PROVIDERS: PCP Nurse Practitioner Family; Visit Provider Otolaryngology | DX: Z11.59 Encounter for screening for other viral diseases (principal) | CPT/HCPCS: 87635; G2023; U0003 ==

== ENCOUNTER → 2020-06-13 | Outpatient (CLI) | payer OTHER, SELFPAY ==
[2020-06-13 10:44] LABS: Estradiol 96.1 pg/mL; Follicle Stimulating Hormone 2.6 mIU/mL; Free T3 3.1 pg/mL (2.18-3.98); Glucose 86 mg/dL (74-106); Luteinizing Hormone 4.5 mIU/mL; Prolactin 14.4 ng/mL; T4 Free Direct 1.01 ng/dL (0.76-1.46); Thyroid Stim Hormone (TSH) 0.83 uIU/mL (0.358-3.74)
[2020-06-13 11:37] LABS: Insulin 9.8 mU/L (2.6-37.6); Vitamin B12 373 pg/mL (211-911)
== END | disposition home or self-care (01) ==
LOC: LABSPEC 08:28
PROVIDERS: PCP Nurse Practitioner Family; Referring Provider Obstetrics & Gynecology; Visit Provider Obstetrics & Gynecology
DX: E28.8 Other ovarian dysfunction (principal); E03.8 Other specified hypothyroidism; D51.3 Other dietary vitamin B12 deficiency anemia; R73.09 Other abnormal glucose; N83.299 Other ovarian cyst, unspecified side
CPT/HCPCS: 36415; 82533; 82607; 82627; 82670; 82947; 83001; 83002; 83525; 84146; 84403; 84439; 84443; 84481; 82626

== ENCOUNTER → 2020-07-25 11:24 | Outpatient (CLI) | payer OTHER, SELFPAY ==
[2020-07-25 14:09] LABS: Absolute Lymphocyte Count 1.55 X10^3/uL (0.83-4.51); Absolute Neutrophil Count 6.9 X10^3/uL (2.0-7.7); Basophil# 0.04 X10^3/uL; Basophil% 0.4 % (0-1); Eosinophils% 2.1 % (0-5); Hematocrit 40.8 % (37-47); Hemoglobin 13.3 g/dL (12.0-15.0); Lymphocyte # 1.55 X10^3/ul (4.0); Lymphocyte % 16.2 % (19-41); Mean Corp Hgb Conc 32.6 g/dL (32-36); Mean Corpuscular Hgb 29.5 pg (27.0-32.0); Mean Corpuscular Volume 90.5 fL (81-99); Mean Platelet Vol. 10.9 fl (6.2-12.0); Monocyte# 0.78 X10^3/uL; Monocyte% 8.2 % (0-10); NRBC Flagged by Analyzer 0 % (0-5); Neutrophil # 6.93 X10^3/uL (2.7-7.7); Neutrophil % 72.7 % (47-70); Platelet Count 349 K/mm3 (150-450); RBC Distribution Width CV 11.9 % (11.6-14.6); RBC Distribution Width SD 39.8 fl (35.1-43.9); Red Blood Count 4.51 M/mm3 (4.2-5.4); White Blood Count 9.5 K/mm3 (4.4-11.0)
[2020-07-25 14:59] LABS: HIV - WCH Non-Reactive (Nonreactive); Hepatitis B Surface Antigen Non-Reactive (Nonreactive); Hepatitis C Antibody Non-Reactive (Nonreactive); Rubella IgG Reactive (Nonreactive); Syphilis Antibodies Non-reactive
== END ==
PROVIDERS: PCP Nurse Practitioner Family; Visit Provider Obstetrics & Gynecology
DX: Z34.81 Encounter for supervision of other normal pregnancy, first trimester (principal)
CPT/HCPCS: 36415; 84443; 85025; 86703; 86762; 86780; 86803; 87086; 87340

== ENCOUNTER 2020-08-09 15:19 | Emergency (ER) | payer OTHER, SELFPAY ==
[2020-08-09 15:20] VITALS: BP 140/74; PULSE 106; RESP 18; TEMP 37.1; O2SAT 99; BMI 27.9
--- NOTE | 2020-08-09 15:27 | US_ITS ---
EXAM: US , TRANSVAGINAL CLINICAL INDICATION: bleeding TECHNIQUE: Real-time transvaginal obstetrical ultrasound of the maternal pelvis and a first trimester with image documentation. Transvaginal imaging was used for better evaluation of the fetus and adnexa. This report was created using [employer] report generation technology. COMPARISON: None. FINDINGS: GESTATION: Embryonic pole measures 3.91 cm correlating to gestational age of 10 weeks and 4 days. Embryonic cardiac activity measured at 176 bpm. Intrauterine gestational sac has a mean sac diameter 4.9 cm. Yolk sac measures 5.5 mm. PLACENTA/AMNIOTIC FLUID: Small subchorionic hematoma measures 2.8 x 2.2 x 1.2 cm. Placenta is posterior. UTERUS/CERVIX: Uterus measures 11.5 x 8.6 x 6.0 cm. No myometrial mass. OVARIES: Right ovary measures 3.4 x 3.4 x 1.4 cm. Left ovary measures 4.5 x 2.6 x 2.1 cm. No mass. FREE FLUID: No free fluid. US/Transvaginal w/Preg US IMPRESSION: 1. Single live intrauterine correlating to gestational age of 10 weeks and 4 days. 2. Small subchorionic hematoma measures 2.8 x 2.2 x 1.2 cm. Electronically Signed: Bubba Bradshaw MD (Brooks) at 16:52 EDT , Service support ,
[2020-08-09 15:45] LABS: Absolute Lymphocyte Count 1.56 X10^3/uL (0.83-4.51); Absolute Neutrophil Count 8.5 X10^3/uL (2.0-7.7); Basophil# 0.05 X10^3/uL; Basophil% 0.5 % (0-1); Eosinophil# 0.08 X10^3/uL; Eosinophils% 0.7 % (0-5); Hematocrit 40.7 % (37-47); Hemoglobin 13.4 g/dL (12.0-15.0); Lymphocyte # 1.56 X10^3/ul (4.0); Lymphocyte % 14.3 % (19-41); Mean Corp Hgb Conc 32.9 g/dL (32-36); Mean Corpuscular Hgb 29.7 pg (27.0-32.0); Mean Corpuscular Volume 90.2 fL (81-99); Mean Platelet Vol. 10.6 fl (6.2-12.0); Monocyte# 0.68 X10^3/uL; Monocyte% 6.2 % (0-10); NRBC Flagged by Analyzer 0 % (0-5); Neutrophil # 8.49 X10^3/uL (2.7-7.7); Neutrophil % 77.9 % (47-70); Platelet Count 308 K/mm3 (150-450); RBC Distribution Width CV 11.8 % (11.6-14.6); RBC Distribution Width SD 38.6 fl (35.1-43.9); Red Blood Count 4.51 M/mm3 (4.2-5.4); White Blood Count 10.9 K/mm3 (4.4-11.0)
[2020-08-09] MEDS: 0.9% Normal Saline 1,000 ML 1000 ML IV (15:45)
--- NOTE | 2020-08-09 15:47 | ED.VIS.GEN ---
History of Present Illness Chief Complaint: Vag Bld, Preg Informant: Patient Onset: Today Maximum Severity: Mild Narrative: The patient presents with vaginal bleeding she is currently 10 weeks by ultrasound on the office a few days ago, she is G2, P0 indicates the first twin gestation, she miscarried very early on one of the fetuses and then she stillbirth at 24 weeks second fetus She has a history of POTS vascular instability syndrome that causes syncope that has been stable, she has no underlying cardiovascular disorder otherwise, she is had no fever cough chest pain just some crampy lower abdominal pain vaginal bleeding. No obvious source to the bleeding no other issues Past Medical History - Allergies and Home Meds Allergies/Adverse Reactions: Allergies Sulfa (Sulfonamide Antibiotics) Allergy (Intermediate, Verified 08/09/20 15:22) Hives latex Allergy (Verified 08/09/20 15:22) Rash Primary Care Physician: Albertina Encarnacion PIT STEWARD, PIT STEWARD-C [Primary Care Provider] - Past Medical History: - Surgical History: no surgical history Smoking Status: Never smoker Review of Systems ROS: - Fluids as above General: Denies: Chills, Fever, Sweats Eyes: Denies: Visual changes - bilaterally, Diplopia ENT: Denies: Rhinorrhea, Sore throat Cardiovascular: Denies: Chest pain, Palpitations Respiratory: Denies: Dyspnea, Cough, Dyspnea on exertion Gastrointestinal: Denies: Abdominal pain, Nausea, Vomiting, Diarrhea, Melena, Hematochezia Genitourinary: Reports: - - Vaginal bleeding. Denies: Dysuria, Hematuria, Frequency Musculoskeletal: Denies: Back pain, Extremity Pain Skin: Denies: Rash, Wounds Neurological: Denies: Headache, Weakness, Numbness Physical Exam Vital Signs/Narrative: Vital Signs Temp Pulse Resp BP Pulse Ox 08/09/20 15:20 98.8 F 106 H 18 140/74 H 99 General: Well nourished, Well developed, No Acute Distress Head: Normocephalic, Atraumatic Eyes: Perrl, EOMI ENT: Moist mucous membranes, No rhinorrhea Neck: Supple, Nontender Cardiovascular: Regular rate, Regular rhythm, No murmurs Respiratory: No distress, CTA bilaterally, Chest nontender Abdomen: Soft, Nontender, Nondistended, Normal bowel sounds Back: Nontender, Normal Inspection Extremities: Nontender, No edema Skin: Normal color, No rash Neurological: Alert, Oriented x3, Cranial nerves II-XII grossly intact, Normal Strength, Normal Sensation Psychological: Normal affect, Normal Mood Diagnostic/Tx/Re-eval - Medical Decision Making His vital signs are unremarkable she is in no distress her abdomen is soft there is no rebound guarding organomegaly we discussed pelvic exam is deferred at this time she is undergoing ED evaluation with transvaginal ultrasound she has noticed of ectopic IV fluid screening labs Patient's ED screening evaluation was generally unremarkable her CBC is unremarkable hemoglobin 13, hCG 55,000, pelvic ultrasound shows single live IUP at about 10 weeks 4 days, discussed all the above with the patient she understands she is resting more assured as was concerned about the possibility miscarriage, that possibility the differential we have explained the discharge instructions she will follow with her outpatient providers and return for change in symptoms or bleeding pelvic rest Home stable Final impression vaginal bleeding 10-week IUP on ultrasound threatened AB ED Disposition - Plan for ED Patient: Diagnosis: Threatened Instructions: Miscarriage, ED Possible Miscarriage ... Referrals: Albertina Encarnacion NP, PIT STEWARD-C [Primary Care Provider] -
[2020-08-09 16:22] LABS: hCG Titer Quant., Serum 54800 mIU/mL (1-3)
== END 2020-08-09 17:48 | disposition home or self-care (01) ==
LOC: ED 16:26
PROVIDERS: Emergency Provider Emergency Medicine; PCP Nurse Practitioner Family
DX: O20.0 Threatened abortion (principal); Z3A.10 10 weeks gestation of pregnancy
CPT/HCPCS: 76817; 84702; 84703; 85025; 86900; 86901; 96360; 96361; 99282; J7030; A4216

== ENCOUNTER → 2020-12-26 15:49 | Outpatient (CLI) | payer OTHER, SELFPAY | PROVIDERS: PCP Nurse Practitioner Family; Visit Provider Obstetrics & Gynecology | DX: O16.3 Unspecified maternal hypertension, third trimester (principal); Z3A.00 Weeks of gestation of pregnancy not specified | CPT/HCPCS: 81050; 84156 ==

== ENCOUNTER → 2020-12-29 07:43 | Outpatient (CLI) | payer OTHER, SELFPAY ==
[2020-12-26 17:08] LABS: Hematocrit 35.1 % (37-47); Hemoglobin 11.5 g/dL (12.0-15.0); Mean Corp Hgb Conc 32.8 g/dL (32-36); Mean Corpuscular Hgb 30.3 pg (27.0-32.0); Mean Corpuscular Volume 92.4 fL (81-99); Mean Platelet Vol. 10.8 fl (6.2-12.0); Platelet Count 261 K/mm3 (150-450); RBC Distribution Width CV 12.9 % (11.6-14.6); RBC Distribution Width SD 43.4 fl (35.1-43.9); White Blood Count 10.6 K/mm3 (4.4-11.0)
[2020-12-26 17:42] LABS: ALB/GLOB Ratio 0.7 RATIO (0.9-2.4); AST(SGOT) 15 U/L (15-37); Alanine Aminotransfer ALT/SGPT 24 U/L (13-56); Albumin, Serum 2.9 g/dL (3.2-5.0); Alkaline Phosphatase 66 U/L (45-117); Anion Gap 8 (5-15); BUN 10 mg/dL (7-18); BUN/Creat Ratio 17.6 RATIO (10-20); Calcium,Total 8.9 mg/dL (8.5-10.1); Chloride 107 mmol/L (98-107); Creatinine, Serum 0.57 mg/dL (0.55-1.02); EST Glomerular Filtration Rate 133 mL/min (>60); Est Glom Filt Rate - Afr Amer 161 mL/min (>60); Globulin 4.3 g/dL (2.2-4.2); Glucose 103 mg/dL (74-106); LDH 127 U/L (84-246); Potassium 3.4 mmol/L (3.5-5.1); Protein, Total 7.2 g/dL (6.4-8.2); Sodium Level 138 mmol/L (136-145); Uric Acid 5.1 mg/dL (2.6-6.0)
[2020-12-27 17:14] LABS: 24 Hour Urine Protein 229.6 mg/24HR (<150 MG/24HR); 24HR. UA Prot. Total Volume 1400 mL; Urine Protein (24 Hour) 16.4 mg/dL (<11.9)
== END ==
PROVIDERS: PCP Nurse Practitioner Family; Visit Provider Obstetrics & Gynecology
DX: O16.3 Unspecified maternal hypertension, third trimester (principal); Z3A.00 Weeks of gestation of pregnancy not specified
CPT/HCPCS: 36415; 80053; 81050; 82570; 83615; 84156; 84550; 85027

== ENCOUNTER 2021-01-12 11:30 | Outpatient (CLI) | payer OTHER, SELFPAY ==
[2021-01-12] VITALS (16 sets, daily range): BP systolic 134–161; BP diastolic 82–98; PULSE 85–119; TEMP 36.8; O2SAT 97–99; BMI 30.9
[2021-01-12 12:42] LABS: Hematocrit 37.3 % (37-47); Hemoglobin 12.5 g/dL (12.0-15.0); Mean Corp Hgb Conc 33.5 g/dL (32-36); Mean Corpuscular Hgb 30.9 pg (27.0-32.0); Mean Corpuscular Volume 92.3 fL (81-99); Mean Platelet Vol. 10.6 fl (6.2-12.0); Platelet Count 289 K/mm3 (150-450); RBC Distribution Width CV 12.9 % (11.6-14.6); RBC Distribution Width SD 43.7 fl (35.1-43.9); Red Blood Count 4.04 M/mm3 (4.2-5.4); White Blood Count 10.7 K/mm3 (4.4-11.0)
[2021-01-12 12:51] LABS: AST(SGOT) 18 U/L (15-37); Alanine Aminotransfer ALT/SGPT 21 U/L (13-56); Creatinine, Serum 0.52 mg/dL (0.55-1.02); EST Glomerular Filtration Rate 146 mL/min (>60); Est Glom Filt Rate - Afr Amer 176 mL/min (>60); Estimated Creatinine Clearance 161.03 ml/min; Protein:Creat Ratio 147 mg/g CRE (0-200); Uric Acid 5.1 mg/dL (2.6-6.0)
--- NOTE | 2021-01-14 20:27 | OB.TRI.HP_ITS ---
HPI - General HPI Narrative CLARISA REYES, is a 30 F who presents to labor and delivery at 32 weeks 5 days gestation with a headache and some swelling. She is concerned about having -induced hypertension. Patient has had headaches on and off during the . [facility] Medical History (Updated 08/10/20 @ 00:00 by Background Daemon) Multiple fractures Osteoporosis POTS (postural orthostatic tachycardia syndrome) Home Medications pediatric jeawchfv-kdcs-yts 1 ea PO DAILY 04/26/19 [History Last Taken 01/12/21 07:45] aspirin [Aspir-81] 81 mg PO DAILY 01/12/21 [History Last Taken 01/12/21 07:45] loratadine [Claritin] 10 mg PO DAILY 01/12/21 [History Last Taken 01/12/21 07:45] progesterone micronized 200 mg PO DAILY 01/12/21 [History Last Taken 01/12/21 07:45] Allergy/AdvReac Type Severity Reaction Status Date / Time Sulfa (Sulfonamide Allergy Intermediate Hives Verified 01/12/21 11:49 Antibiotics) latex Allergy Rash Verified 01/12/21 11:49 Social History Smoking Status: Never smoker History Elective abortions Hx Para 0 Spontaneous abortions Hx # Term Pregnancies Ectopic pregnancies Hx # Pregnancies Multiple births # of living children NST FHR Rate Baby A NST Reactive:: Yes FHR Category:: Category I Assessment & Plan (1) POTS (postural orthostatic tachycardia syndrome): COMMENT: Has port - infuses NS twice weekly with heparin flush PLAN: 32-week 5-day gestation with headache and pots syndrome. No evidence of -induced hypertension as labs were checked and negative. Reactive nonstress test. Headache subsided after patient was on labor and delivery. Encouraged Tylenol use. Return for routine follow-up in the office.
== END 2021-01-12 13:03 | disposition home or self-care (01) ==
LOC: WPOUT 11:46 → WP 11:47
PROVIDERS: PCP Nurse Practitioner Family; Visit Provider Obstetrics & Gynecology
DX: O99.413 Diseases of the circulatory system complicating pregnancy, third trimester (principal); I49.8 Other specified cardiac arrhythmias; Z3A.32 32 weeks gestation of pregnancy
CPT/HCPCS: 36415; 59025; 59050; 82565; 82570; 84156; 84450; 84460; 84550; 85027

== ENCOUNTER 2021-01-15 15:51 | Outpatient (CLI) | payer OTHER, SELFPAY ==
[2021-01-15 16:36] VITALS: BP 131/72; PULSE 85
[2021-01-15 16:37] VITALS: BP 131/72; PULSE 84; TEMP 36.9; O2SAT 98
[2021-01-15 16:47] VITALS: BMI 30.7
[2021-01-15 16:51] LABS: Hematocrit 36.9 % (37-47); Hemoglobin 12.4 g/dL (12.0-15.0); Mean Corp Hgb Conc 33.6 g/dL (32-36); Mean Corpuscular Hgb 30.8 pg (27.0-32.0); Mean Corpuscular Volume 91.6 fL (81-99); Mean Platelet Vol. 10.9 fl (6.2-12.0); Platelet Count 287 K/mm3 (150-450); RBC Distribution Width CV 12.6 % (11.6-14.6); RBC Distribution Width SD 42.5 fl (35.1-43.9); Red Blood Count 4.03 M/mm3 (4.2-5.4); White Blood Count 11.2 K/mm3 (4.4-11.0)
[2021-01-15 17:13] LABS: ALB/GLOB Ratio 0.7 RATIO (0.9-2.4); AST(SGOT) 18 U/L (15-37); Alanine Aminotransfer ALT/SGPT 23 U/L (13-56); Albumin, Serum 3.1 g/dL (3.2-5.0); Alkaline Phosphatase 91 U/L (45-117); Anion Gap 7 (5-15); BUN 8 mg/dL (7-18); BUN/Creat Ratio 14.4 RATIO (10-20); Calcium,Total 9.1 mg/dL (8.5-10.1); Chloride 107 mmol/L (98-107); Creatinine, Serum 0.56 mg/dL (0.55-1.02); EST Glomerular Filtration Rate 136 mL/min (>60); Est Glom Filt Rate - Afr Amer 165 mL/min (>60); Estimated Creatinine Clearance 149.53 ml/min; Globulin 4.5 g/dL (2.2-4.2); Glucose 95 mg/dL (74-106); Potassium 3.6 mmol/L (3.5-5.1); Protein, Total 7.6 g/dL (6.4-8.2); Protein, Urine (Random) 41.4 mg/dL (<11.9); Protein:Creat Ratio 145 mg/g CRE (0-200); Sodium Level 137 mmol/L (136-145); Uric Acid 5.3 mg/dL (2.6-6.0)
[2021-01-15 17:37] VITALS: BP 129/84; PULSE 80
[2021-01-15] MEDS: Betamethasone/Betamethasone 30 MG/5 ML Vial 12 MG IM (17:37)
[2021-01-15] MEDS: Acetaminophen/Butalbital/Caffe 1 Tablet 2 TABLET PO (17:38)
[2021-01-15] MEDS: Labetalol 200 MG Tablet PO (17:39)
[2021-01-15 18:44] VITALS: BP 112/64; PULSE 78
[2021-01-15 19:51] VITALS: BP 133/64; PULSE 82; TEMP 36.7
[2021-01-15 21:55] VITALS: BP 131/75; PULSE 97; TEMP 36.7
[2021-01-16] VITALS (13 sets, daily range): BP systolic 112–141; BP diastolic 56–76; PULSE 84–100; TEMP 36.6–37; O2SAT 97–100
[2021-01-16] MEDS: Labetalol 200 MG Tablet PO ×2 (05:31→17:15)
[2021-01-16] MEDS: Acetaminophen/Butalbital/Caffe 1 Tablet 2 TABLET PO (14:49)
--- NOTE | 2021-01-16 16:59 | PCM.DC ---
Discharge Instructions Diet Discharge Diet: No restrictions Activity Discharge Activity: Return to Normal Activity Dressing / Incision Call your doctor if you observe: Shortness of breath, Dizziness, Fainting spells, Chest pain, Uncontrolled pain and - (Persistent headache, vision changes, upper abdominal pain) Follow Up Care Please Follow Up With: Joana Tang MD When: January 20 for NST Call the office on Tuesday to schedule an NST Test Results: Test results from this visit will be discussed in further detail at your follow-up appointment, if applicable. Discharge Plan Admission Reason For Visit: EXTENDED M[place] Attending Provider: Joana Tang Primary Care Provider: Albertina Encarnacion SAMPLE PREPARATION SUPERVISOR Discharge Orders/Prescriptions Prescriptions: New znfdgdjktt-xmjxfffqdggga-ftxr 50-325-40 mg Tablet 2 tab PO Q12H PRN PRN (Reason: headache) Qty: 0 RF: 0 labetalol 200 mg Tablet 200 mg PO 0500,1700 Qty: 60 RF: 5 Continued pediatric wvsgtshq-vsew-sfb 1 EACH tablet,chewable 1 ea PO DAILY RF: 0 aspirin 81 mg Tablet,Delayed Release (Dr/Ec) 81 mg PO DAILY RF: 0 progesterone micronized 200 mg capsule 200 mg PO DAILY RF: 0 loratadine [Claritin] 10 mg Tablet 10 mg PO DAILY RF: 0 Referrals / Follow Up: Albertina Encarnacion NP, SAMPLE PREPARATION SUPERVISOR-C [Primary Care Provider] - Disposition Patient Disposition: Home, Self Care
[2021-01-16] MEDS: Betamethasone/Betamethasone 30 MG/5 ML Vial 12 MG IM (18:02)
[2021-01-16 19:18] LABS: 24HR. UA Prot. Total Volume 3000 mL; Urine Protein (24 Hour) 7.3 mg/dL (<11.9)
--- NOTE | 2021-01-16 19:49 | OB.TRI.HP_ITS ---
HPI - General HPI Narrative CLARISA REYES, is a 31 F who presents at 33 2/7 weeks gestation sent from office to r/o preeclampsia. Reports persistent headache. No vision changes or abdominal pain, contractions, leaking of fluid. + movement. OB PROBLEM LIST: Enc office [facility]ild[facility] and BF classes. ALLERGIC TO LATEX AND SULFA. Declines Carrier and Genetic Screening EPDS=6 Gets vitamin B12 injections monthly gHTN vs. cHTN - twice weekly monitoring Osteoporosis , hx of multiple fractures with no trauma in feet and hands. POTS , previously on IV transfusions of saline Maternal Data Information NIELS Calculator Estimated Delivery Date Method Current WG Current Estimate 03/04/21 LMP (Certain) 38w 0d PFSH PFSH Medical History (Updated 02/13/21 @ 08:[address] Ailin Durand, DO) IUFD at 20 weeks or more of gestation Multiple fractures Osteoporosis POTS (postural orthostatic tachycardia syndrome) Home Medications pediatric gphiobga-gnjk-sbg 1 ea PO DAILY 04/26/19 [History Last Taken 02/10/21] loratadine [Claritin] 10 mg PO DAILY 01/12/21 [History Last Taken 02/10/21] labetalol 200 mg PO TID 01/26/21 [History Last Taken 02/10/21 22:00] oxycodone 5 mg PO Q6H PRN PRN #0 cap 02/13/21 [Rx Last Taken Unknown] oxycodone 5 mg PO Q6H PRN PRN 5 Days #20 tab 02/13/21 [Rx Last Taken Unknown] Allergy/AdvReac Type Severity Reaction Status Date / Time Sulfa (Sulfonamide Allergy Intermediate Hives Verified 02/11/21 05:21 Antibiotics) latex Allergy Rash Verified 02/11/21 05:21 Family History Father Diabetes Hypertension Surgical History S/P dilation and curettage Social History adopted: No household members: spouse 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 Date Name GA/Weeks Outcome Route Bth Weight Infant Gen Labor Lgth Anesthesia Del Adrielatshmuel Provider FOB 06/24/18 Roxi 24 still 9 oz Female 4 none [facility] tr[facility] Wilkins Delivery Date: 06/24/18 twin gestation with single 8w loss, then subsequent 24w loss Physical Exam Const alert, oriented x3 and no apparent distress HEENT normocephalic Resp normal respiratory effort, normal air movement and clear to auscultation bilaterally Cardio regular rate and regular rhythm GI normal to inspection, nondistended, normoactive bowel sounds, soft to palpation, non-tender and non-distended Inspection: gravid Neuro oriented x3, moves all extremities and deep tendon reflexes 2+ bilaterally Neuro Narrative: no clonus NST FHR Rate Baby A Baseline: 135 Variability:: Moderate Accelerations:: 15 x 15 Decelerations:: None NST Reactive:: Yes FHR Category:: Category I Uterine Activity:: 0/10 Assessment & Plan (1) Headache: QUALIFIERS: Headache type: unspecified Headache chronicity pattern: unspecified pattern Intractability: not intractable Qualified Code(s): R51.9 - Headache, unspecified PLAN: Refractory to APAP and Fiorecet Improved with Reglan (2) Hypertension affecting in third trimester: PLAN: Betamethasone course completed 24h urine collection obtained Preeclamptic labs wnl No worsening of BPs with overnight monitoring Plan for d/c home with twice weekly outpatient follow up
== END 2021-01-16 18:47 | disposition home or self-care (01) ==
LOC: LABSPEC 15:52 → WPOUT 16:27 → WP 16:27
PROVIDERS: PCP Nurse Practitioner Family; Referring Provider Obstetrics & Gynecology; Visit Provider Obstetrics & Gynecology
DX: O13.9 Gestational [pregnancy-induced] hypertension without significant proteinuria, unspecified trimester (principal); Z3A.00 Weeks of gestation of pregnancy not specified
CPT/HCPCS: 36415; 59025; 59050; 80053; 82570; 84156; 84550; 85027; 96372; 99218; G0378; J0702

== ENCOUNTER → 2021-01-23 12:10 | Outpatient (CLI) | payer OTHER, SELFPAY ==
[2021-01-23 13:15] LABS: Hematocrit 36.6 % (37-47); Mean Corp Hgb Conc 32.8 g/dL (32-36); Mean Corpuscular Hgb 30.2 pg (27.0-32.0); Mean Corpuscular Volume 92.2 fL (81-99); Mean Platelet Vol. 11.1 fl (6.2-12.0); Platelet Count 269 K/mm3 (150-450); RBC Distribution Width CV 13.1 % (11.6-14.6); Red Blood Count 3.97 M/mm3 (4.2-5.4); White Blood Count 10.2 K/mm3 (4.4-11.0)
[2021-01-23 13:27] LABS: Protein, Urine (Random) 22.5 mg/dL (<11.9); Protein:Creat Ratio 180 mg/g CRE (0-200)
[2021-01-23 13:28] LABS: ALB/GLOB Ratio 0.6 RATIO (0.9-2.4); AST(SGOT) 13 U/L (15-37); Alanine Aminotransfer ALT/SGPT 23 U/L (13-56); Albumin, Serum 2.9 g/dL (3.2-5.0); Alkaline Phosphatase 90 U/L (45-117); Anion Gap 9 (5-15); BUN 9 mg/dL (7-18); BUN/Creat Ratio 16.2 RATIO (10-20); Chloride 104 mmol/L (98-107); Creatinine, Serum 0.56 mg/dL (0.55-1.02); EST Glomerular Filtration Rate 136 mL/min (>60); Est Glom Filt Rate - Afr Amer 165 mL/min (>60); Globulin 4.6 g/dL (2.2-4.2); Glucose 95 mg/dL (74-106); LDH 127 U/L (84-246); Potassium 3.9 mmol/L (3.5-5.1); Protein, Total 7.5 g/dL (6.4-8.2); Sodium Level 135 mmol/L (136-145); Uric Acid 5.5 mg/dL (2.6-6.0)
== END ==
PROVIDERS: PCP Nurse Practitioner Family; Visit Provider Obstetrics & Gynecology
DX: O13.9 Gestational [pregnancy-induced] hypertension without significant proteinuria, unspecified trimester (principal); O14.90 Unspecified pre-eclampsia, unspecified trimester; Z3A.00 Weeks of gestation of pregnancy not specified
CPT/HCPCS: 36415; 80053; 82570; 83615; 84156; 84550; 85027

== ENCOUNTER 2021-01-26 17:10 | Outpatient (CLI) | payer OTHER, SELFPAY ==
[2021-01-26] VITALS (18 sets, daily range): BP systolic 111–136; BP diastolic 65–81; PULSE 80–97; TEMP 36.3–36.4; O2SAT 82; BMI 30.2
[2021-01-26] MEDS: 0.9% Saline Lock 10 ML Syringe IV ×2 (18:00→18:10)
[2021-01-26] MEDS: Metoclopramide 10 MG/2 ML Vial 5 MG IV (18:08)
[2021-01-26 18:17] LABS: Hematocrit 35.2 % (37-47); Hemoglobin 11.5 g/dL (12.0-15.0); Mean Corp Hgb Conc 32.7 g/dL (32-36); Mean Corpuscular Hgb 30.6 pg (27.0-32.0); Mean Corpuscular Volume 93.6 fL (81-99); Platelet Count 253 K/mm3 (150-450); RBC Distribution Width CV 13.1 % (11.6-14.6); RBC Distribution Width SD 45.2 fl (35.1-43.9); Red Blood Count 3.76 M/mm3 (4.2-5.4); White Blood Count 11.5 K/mm3 (4.4-11.0)
[2021-01-26 18:37] LABS: ALB/GLOB Ratio 0.7 RATIO (0.9-2.4); AST(SGOT) 16 U/L (15-37); Alanine Aminotransfer ALT/SGPT 22 U/L (13-56); Albumin, Serum 2.8 g/dL (3.2-5.0); Alkaline Phosphatase 93 U/L (45-117); Anion Gap 9 (5-15); BUN 12 mg/dL (7-18); BUN/Creat Ratio 17.9 RATIO (10-20); Chloride 106 mmol/L (98-107); Creatinine, Serum 0.67 mg/dL (0.55-1.02); EST Glomerular Filtration Rate 110 mL/min (>60); Est Glom Filt Rate - Afr Amer 133 mL/min (>60); Estimated Creatinine Clearance 124.98 ml/min; Globulin 4.3 g/dL (2.2-4.2); Glucose 101 mg/dL (74-106); LDH 115 U/L (84-246); Potassium 3.6 mmol/L (3.5-5.1); Protein, Total 7.1 g/dL (6.4-8.2); Sodium Level 137 mmol/L (136-145)
[2021-01-26 18:40] LABS: Protein, Urine (Random) 31.2 mg/dL (<11.9); Protein:Creat Ratio 160 mg/g CRE (0-200)
[2021-01-26 18:42] LABS: Uric Acid 6.5 mg/dL (2.6-6.0)
--- NOTE | 2021-01-26 20:16 | OB.TRI.NOTE ---
HPI - General HPI Narrative CLARISA REYES, is a 30 F 3 para 0-1-1-0 at 34-5/7 weeks gestational age by LMP consistent with 8-week ultrasound presenting with persistent headache and visual changes. She has a history of hypertension, suspected cHTN, and is on labetalol 3 times daily. She called the office reporting no improvement of headache despite 2 Fioricet. She has a history of headaches prepregnancy related to her pots but notes this is different headache. Home blood pressures were 130/86 and 169/92 today. Reports good movement. No contractions, no leaking of fluid, no vaginal bleeding. Issues: ALLERGIC TO LATEX AND SULFA. Betamethasone given 01/15-01/16 Declines Carrier and Genetic Screening EPDS=6 Gets vitamin B12 injections monthly gHTN vs. cHTN - twice weekly monitoring Osteoporosis , hx of multiple fractures with no trauma in feet and hands. Genetic testing all negative POTS , previously on IV transfusions of saline Maternal Data Information NIELS Calculator Estimated Delivery Date Method Current WG Current Estimate 03/04/21 LMP (Certain) 34w 5d PFSH PFSH Medical History (Updated 01/26/21 @ 20:[address] Joana Wilkins MD) IUFD at 20 weeks or more of gestation Multiple fractures Osteoporosis POTS (postural orthostatic tachycardia syndrome) Home Medications pediatric vvcuqtcp-awxa-ohh 1 ea PO DAILY 04/26/19 [History Last Taken 01/15/21 10:00] aspirin 81 mg PO DAILY 01/12/21 [History Last Taken 1 Day Ago ~01/25/21] loratadine [Claritin] 10 mg PO DAILY 01/12/21 [History Last Taken 1 Day Ago ~01/25/21] progesterone micronized 200 mg PO DAILY 01/12/21 [History Last Taken 1 Day Ago ~01/25/21] nbpanzjueh-vsynzcnltyglv-vvja 2 tab PO Q12H PRN PRN #0 tab 01/16/21 [Rx Last Taken 01/26/21 14:30] labetalol 200 mg PO TID 01/26/21 [History Last Taken 01/26/21 12:00] Allergy/AdvReac Type Severity Reaction Status Date / Time Sulfa (Sulfonamide Allergy Intermediate Hives Verified 01/26/21 20:03 Antibiotics) latex Allergy Rash Verified 01/26/21 20:03 Family History (Updated 01/26/21 @ 20:[address] Joana Wilkins MD) Father Diabetes Hypertension Surgical History (Updated 01/26/21 @ 20:[address] Joana Wilkins MD) S/P dilation and curettage Social History (Updated 01/26/21 @ 20:[address] 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 Smoking Status: Never smoker History 3 Elective abortions 0 Hx Para 0 Spontaneous abortions 1 Hx # Term Pregnancies 0 Ectopic pregnancies 0 Hx # Pregnancies 1 Multiple births 0 # of living children 0 Physical Exam Const alert, oriented x3 and no apparent distress HEENT normocephalic Resp normal respiratory effort, normal air movement and clear to auscultation bilaterally Cardio regular rate and regular rhythm GI normal to inspection, nondistended, normoactive bowel sounds, soft to palpation, non-tender and non-distended Inspection: gravid Extremity no calf tenderness Extremity Narrative: Trace lower extremity edema Neuro deep tendon reflexes 2+ bilaterally Motor Exam: clonus absent Psych mental status grossly normal NST FHR Rate Baby A Baseline: 125 Variability:: Moderate Accelerations:: 15 x 15 Decelerations:: None NST Reactive:: Yes FHR Category:: Category I Uterine Activity:: 0-05/18 Assessment & Plan (1) Headache: QUALIFIERS: Headache type: unspecified Headache chronicity pattern: unspecified pattern Intractability: not intractable Qualified Code(s): R51.9 - Headache, unspecified PLAN: Improved from 12/16-->09/15 with IV Reglan. Call to [facility], Dr. Dos Santos to discussed headache persistence. No deficits on exam. Plan for patient transfer. Discussed transfer via medical vehicle versus self transfer. Pt opts for the latter. Will discharge patient for self-transfer to [facility] for evaluation and Neurologic assessment. (2) Hypertension affecting in third trimester: PLAN: Labs not c/w preeclampsia or HELLP BPs appear normal here Continue Labetalol tid (3) : QUALIFIERS: Weeks of gestation: 34 weeks Qualified Code(s): Z3A.34 - 34 weeks gestation of PLAN: I performed BPP at bedside 02/15. EFW 2521g (82nd%), SANDRA 8.6cm, yakelin breech status reassuring Charges/Coding Visit Charges Office Visits / Consults: 79732 OV L3 Est
== END 2021-01-26 20:55 | disposition home or self-care (01) ==
LOC: WPOUT 17:15 → WP 17:15
PROVIDERS: PCP Nurse Practitioner Family; Referring Provider Obstetrics & Gynecology; Visit Provider Obstetrics & Gynecology
DX: O10.913 Unspecified pre-existing hypertension complicating pregnancy, third trimester (principal); O32.1XX0 Maternal care for breech presentation, not applicable or unspecified; O26.893 Other specified pregnancy related conditions, third trimester; M81.0 Age-related osteoporosis without current pathological fracture; Z79.82 Long term (current) use of aspirin; Z79.899 Other long term (current) drug therapy; Z3A.34 34 weeks gestation of pregnancy
CPT/HCPCS: 96374; 36415; 59025; 59050; 76815; 80053; 82570; 83615; 84156; 84550; 85027; 86850; 86900; 86901; 99218; A4216; G0378

== ENCOUNTER → 2021-02-06 12:00 | Outpatient (CLI) | payer OTHER, SELFPAY | PROVIDERS: PCP Nurse Practitioner Family; Referring Provider Obstetrics & Gynecology; Visit Provider Obstetrics & Gynecology | DX: Z03.818 Encounter for observation for suspected exposure to other biological agents ruled out (principal) | CPT/HCPCS: 87635; C9803; U0005; U0003 ==

== ENCOUNTER 2021-02-11 05:00 | Inpatient (IN) | payer OTHER, SELFPAY ==
[2021-02-11] VITALS (18 sets, daily range): BP systolic 119–151; BP diastolic 75–96; PULSE 18–103; RESP 16–20; TEMP 36–36.9; O2SAT 95–100; BMI 29.5
--- NOTE | 2021-02-11 | PLAC_PTH ---
PATIENT: CLARISA REYES LOC: WP U#:[id number] AGE/SX: 31/F ROOM: [facility] RE02/11/[address]: Dr. Joana Wilkins MD : 1990 BED: 1 DIS: 02/13/2021 SPEC #: [id number] RECD: 02/11/21 10:52 STATUS: YOVANA RECat #: [id number] CARLOS: 02/11/21 00:[address]: Joana Tang DEPT: SURGICAL PATHOLOGY RECD BY: Terrance Winchester ENTERED: 02/11/21 10:52 SP TYPE: PLACENTA OTHR DR: Albertina Encarnacion, TRISTAN-Jovanny Tissues: Placenta, NOS Procedures: Surgery Specimen Level V HEADER OPERATION: Primary section PRE-OP DIAGNOSIS: Labor TISSUE SUBMITTED: Placenta MICROSCOPIC DIAGNOSIS Placenta: Placental disc - third trimester placenta (400 gm). Membranes - no pathologic diagnosis. Umbilical cord - three blood vessels and no pathologic diagnosis. SJ:evita 02/13/2021 MICROSCOPIC DESCRIPTION Slides are reviewed. GROSS DESCRIPTION SPECIMEN: PLACENTA / CLINICAL INFORMATION: A. Weight: 2.675 kg B. Gestational Age: 37 weeks C. Sex: Male PLACENTAL WEIGHT (POST FIXATION): 400 gm PLACENTAL DIMENSIONS: 17 x 15 x 3 cm PLACENTAL SHAPE: Usual ovoid PLACENTAL WEIGHT FOR GESTATIONAL AGE: Within 10-99th percentile MEMBRANES - Present A. Insertion: Marginal B. Site of rupture from edge: 5 cm from edge of placental disc C. Color of membrane: Weaver-jacinto D. Abnormalities: None UMBILICAL CORD - Present A. Color: Weaver-jacinto B. Insertion: Paracentral C. Length: 40 cm D. Diameter: 1 cm E. Number of vessels: Three F. Abnormalities: None PLACENTAL DISC - Present A. Color of surface: Weaver-jacinto B. surface abnormalities: None C. Maternal cotyledons: Intact with minimal tears D. Attached retro placental clot: No clot E. Cut surface: Dark red and spongy F. Lesions: None G. Separate clot: Absent SECTIONS SUBMITTED: 1. Membrane roll 2. Cord, maternal end 3. Cord, end 4. Placental disc, and maternal surfaces 5. Placental disc, and maternal surfaces 6. Placental disc, and maternal surfaces SJ:evita 02/12/21 TC:4 CPT: 42261
[2021-02-11] MEDS: Lactated Ringers 1,000 ML 999 ML IV (05:10)
[2021-02-11 05:30] LABS: Absolute Lymphocyte Count 1.35 X10^3/uL (0.83-4.51); Absolute Neutrophil Count 8.2 X10^3/uL (2.0-7.7); Basophil# 0.04 X10^3/uL; Basophil% 0.4 % (0-1); Eosinophil# 0.33 X10^3/uL; Eosinophils% 3.1 % (0-5); Hematocrit 36.5 % (37-47); Hemoglobin 12.1 g/dL (12.0-15.0); Lymphocyte # 1.35 X10^3/ul (0.83-4.51); Lymphocyte % 12.5 % (19-41); Mean Corp Hgb Conc 33.2 g/dL (32-36); Mean Corpuscular Hgb 30.6 pg (27.0-32.0); Mean Corpuscular Volume 92.4 fL (81-99); Mean Platelet Vol. 10.9 fl (6.2-12.0); Monocyte# 0.77 X10^3/uL; Monocyte% 7.2 % (0-10); NRBC Flagged by Analyzer 0 % (0-5); Neutrophil # 8.18 X10^3/uL (2.7-7.7); Platelet Count 307 K/mm3 (150-450); RBC Distribution Width CV 13.1 % (11.6-14.6); RBC Distribution Width SD 44.3 fl (35.1-43.9); Red Blood Count 3.95 M/mm3 (4.2-5.4); White Blood Count 10.8 K/mm3 (4.4-11.0)
[2021-02-11] MEDS: Acetaminophen 500 MG Tablet 1000 MG PO ×3 (05:41→19:14)
[2021-02-11] MEDS: Lactated Ringers 1,000 ML 150 ML IV (06:07)
[2021-02-11] MEDS: Sodium Citrate/Citric Acid 30 ML UDC PO (07:01)
--- NOTE | 2021-02-11 07:21 | HP.PCM.OB_ITS ---
HPI - General General Date of Admission: 02/11/21 HPI Narrative CLARISA REYES, is a 31 F who presents at 37 0/7 weeks gestation for scheduled primary section. She has chronic hypertension versus gestational hypertension with persistent breech presentation. Maternal Data Information NIELS Calculator Estimated Delivery Date Method Current WG Current Estimate 03/04/21 LMP (Certain) 37w 0d PFSH PFSH Medical History (Updated 02/11/21 @ 07:[address] Joana Wilkins MD) IUFD at 20 weeks or more of gestation Multiple fractures Osteoporosis POTS (postural orthostatic tachycardia syndrome) Home Medications pediatric bmjmveot-ynhy-mpv 1 ea PO DAILY 04/26/19 [History Last Taken 02/10/21] aspirin 81 mg PO DAILY 01/12/21 [History Last Taken 02/10/21] loratadine [Claritin] 10 mg PO DAILY 01/12/21 [History Last Taken 02/10/21] labetalol 200 mg PO TID 01/26/21 [History Last Taken 02/10/21 22:00] Allergy/AdvReac Type Severity Reaction Status Date / Time Sulfa (Sulfonamide Allergy Intermediate Hives Verified 02/11/21 05:21 Antibiotics) latex Allergy Rash Verified 02/11/21 05:21 Family History Father Diabetes Hypertension Surgical History S/P dilation and curettage Social History adopted: No household members: spouse 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 Date Name GA/Weeks Outcome Route Bth Weight Infant Gen Labor Lgth Anesthesia Del Locatn Provider FOB 06/24/18 Roxi 24 still 9 oz Female 4 none [place] [facility] Wil[facility] Delivery Date: 06/24/18 twin gestation with single 8w loss, then subsequent 24w loss Joana Sims NST FHR Rate Baby A Baseline: 140 bpm on US Vital Signs Vital Signs Vital Signs: 10/06/21 05:18 Temperature 97.3 F L Temperature Source Temporal Pulse Rate 103 H Respiratory Rate 20 H Blood Pressure 139/87 H Blood Pressure Mean 104 Blood Pressure Source Monitor Blood Pressure Position Semi-Fowlers Blood Pressure Location Right Arm Pulse Ox 98 Oxygen Delivery Method Room Air Weight Weight: 87.997 kg Body Mass Index (BMI) 29.5 Physical Exam Const alert, oriented x3 and no apparent distress HEENT normocephalic Resp normal respiratory effort, normal air movement and clear to auscultation bilaterally Cardio regular rate and regular rhythm GI normal to inspection, nondistended, normoactive bowel sounds, soft to palpation, non-tender and non-distended Inspection: gravid Labs Labs Labs: Blood Type O POSITIVE Antibody Screen NEGATIVE Hct 36.5 % (37-47) L Hgb 12.1 g/dL (12.0-15.0) Obstetrics US Syphilis Total Ab Non-reactive Rubella IgG Antibody Reactive (Nonreactive) Hep Bs Antigen Non-Reactive (Nonreactive) HIV 1&2 Antibody Non-Reactive (Nonreactive) Rhogam given: No Miscellaneous Test 02/06/21 GBS NAAT neg 02/06/21 COVID19 NAAT neg Assessment & Plan (1) Hypertension affecting in third trimester: PLAN: Continue Labetalol No sx preeclampsia (2) 37 weeks gestation of : (3) Breech presentation of fetus: QUALIFIERS: Fetus number: single or unspecified fetus Qualified Code(s): O32.1XX0 - Maternal care for breech presentation, not applicable or unspecified PLAN: US this am with complete breech Proceed with section
[2021-02-11] MEDS: Cefazolin 2 GM in 0.9% Normal Saline 100 ML IV (07:25)
--- NOTE | 2021-02-11 08:37 | OP.PCM_ITS ---
Assessment & Plan (1) Breech presentation of fetus: QUALIFIERS: Fetus number: single or unspecified fetus Qualified Code(s): O32.1XX0 - Maternal care for breech presentation, not applicable or unspecified (2) 37 weeks gestation of : (3) Hypertension affecting in third trimester: (4) delivery delivered: Maternal Data Information NIELS Calculator Estimated Delivery Date Method Current WG Current Estimate 03/04/21 LMP (Certain) 37w 0d Details Operative Information Date of Procedure: 02/11/21 Pre-Operative Diagnosis: 1. 37 weeks gestation 2. Hypertension in - chronic versus gestational HTN 3. Breech presentation Post-Operative Diagnosis: 1. 37 weeks gestation 2. Hypertension in - chronic versus gestational HTN 3. Breech presentation Indications for : Breech Indications Narrative: 31-year-old 2 para 0-1-0-0 presents at 37 weeks gestational age for scheduled primary section for breech presentation with history of chronic versus gestational hypertension on labetalol. Prior history is significant for a 24-week demise. Classification: Scheduled Procedure Type: low transverse mechanical commissioning engineer #1: Nory Edwards Type of Anesthesia: Spinal Anesthesiologist: Amanda Prince Antibiotic Given: Ancef 2 grams IV x1 Drain: Gan to straight drain Estimated Blood Loss: 800 mL Fluids Replaced: 1100 mL Findings Description of Procedure: The patient was taken to the operating room and spinal analgesia was administered. She is placed in a dorsal supine position with left lateral tilt. The perineum and abdomen were prepped and draped in sterile fashion. And the spinal was found to be adequate. A Pfannenstiel incision was made using a scalpel and brought down to incise the subcutaneous tissue and rectus fascia at the midline. Subcutaneous tissue was bluntly dissected off the fascia laterally. The fascial incision was dissected laterally and cephalad using curved Hernandez scissors. The superior leaflet of the rectus fascia was grasped using Ryan clamps and bluntly dissected and sharply dissected from the underlying rectus muscle. In a similar fashion the inferior rectus fascia was dissected from the underlying muscle. The rectus muscles were bluntly at the midline. The peritoneum was identified and entered [sharply]. The bladder blade was placed into the abdomen and the vesicouterine peritoneal fold identified. The fold was incised and a bladder flap created. Bladder blade was then repositioned to the abdomen. A low transverse hysterotomy was made using the [Metzenbaum scissors] to level of the membranes. The hysterotomy was extended bluntly cephalad and caudad. The membranes were then ruptured revealing clear fluid. The breech was elevated and brought to the level of the hysterotomy. The breech was delivered using gentle bidirectional rotat ion to the level of the shoulders with spontaneous delivery of the legs and left arm. The right arm was swept through the hysterotomy and the head flexed to deliver a male infant. The was stimulated with improving tone and cry. The cord was doubly clamped and cut after 30 seconds. The was passed to awaiting [nursery personnel]. The placenta was [expressed] from the uterus and appeared intact on inspection. The uterus was cleared of debris. The hysterotomy was then repaired using 0 Vicryl running lock suture. A second imbricating layer was also placed for additional hemostasis. The bladder blade was removed. The anterior cul-de-sac was cleared of debris. The peritoneum and rectus muscles were reapproximated using 2-0 Vicryl running suture. The rectus fascia was closed using 0 strata fix running suture. The subcutaneous tissue was reapproximated using 2-0 Vicryl. The skin was closed using 4-0 Monocryl subcuticularly by the GAS PIT WORKER under my supervision. Mepilex occlusive dressing was placed over the incision. The fundus was firm. The patient was then transferred to the recovery room without complication. Sponge, instrument, and needle counts were correct ?2. Findings: Normal-appearing uterus, bilateral ovaries and tubes Presentation: Positive for Complete Breech Amniotic Membrane Rupture Type: Artificial Amniotic Fluid Description: Clear Placental Delivery Description: Expressed Placenta Disposition: [facility] Cord Vessel Description: 3 Vessels Cord Entanglement: None A Gender: Male (1 minute): 8 (5 minute): 10 Delayed Cord Clamping: Yes Complications Risks of Surgery Discussed w/Patient: Bleeding, Anesthesia Risks, Infection and Injury to surrounding structure(s) including bowel and bladder
[2021-02-11] MEDS: Oxytocin 30 units/NS 500 ml 30 UNITS/500 ML IV.SOLN 167 UNITS IV (08:45)
[2021-02-11] MEDS: Ketorolac 30 MG/ML Syringe IV ×3 (09:42→21:08)
[2021-02-11 09:55] LABS: Pathology Specimen OB SEE PATHOLOGY REPORT
[2021-02-11] MEDS: Lactated Ringers 1,000 ML 100 ML IV (11:51)
[2021-02-11] MEDS: Labetalol 200 MG Tablet PO ×2 (12:18→21:08)
[2021-02-11] MEDS: 0.9% Saline Lock 10 ML Syringe IV (21:08)
[2021-02-12] MEDS: Acetaminophen 500 MG Tablet 1000 MG PO ×4 (01:08→19:32)
[2021-02-12] MEDS: Ketorolac 30 MG/ML Syringe IV (03:17)
[2021-02-12] MEDS: 0.9% Saline Lock 10 ML Syringe IV ×2 (03:18→15:30)
[2021-02-12 03:25] VITALS: BP 140/90; PULSE 84; RESP 16; TEMP 36.1; O2SAT 97
[2021-02-12] MEDS: Enoxaparin 40 MG/0.4 ML Syringe SC (05:22)
[2021-02-12] MEDS: Labetalol 200 MG Tablet PO ×3 (05:23→21:32)
[2021-02-12 05:39] LABS: Hematocrit 31.4 % (37-47); Hemoglobin 10.5 g/dL (12.0-15.0); Mean Corp Hgb Conc 33.4 g/dL (32-36); Mean Corpuscular Hgb 30.8 pg (27.0-32.0); Mean Corpuscular Volume 92.1 fL (81-99); Mean Platelet Vol. 10.4 fl (6.2-12.0); Platelet Count 229 K/mm3 (150-450); RBC Distribution Width CV 13.2 % (11.6-14.6); RBC Distribution Width SD 44.1 fl (35.1-43.9); Red Blood Count 3.41 M/mm3 (4.2-5.4); White Blood Count 11.6 K/mm3 (4.4-11.0)
--- NOTE | 2021-02-12 07:37 | PCM.PN.OB ---
Subjective Subjective Pain well controlled. No complaints overnight Objective Data Objective Data Vital Signs: Vital Signs Temp Pulse Resp BP Pulse Ox 97.0 F L 84 16 140/90 H 97 02/12/21 03:25 02/12/21 03:25 02/12/21 03:25 02/12/21 03:25 02/12/21 03:25 Oxygen Delivery Method Room Air Weight: 194 lb Body Mass Index (BMI) 29.5 Intake & Output: Intake and Output for Last 24 Hours 02/10/21 02/11/21 02/12/21 23:59 23:59 23:59 Intake Total 2505 / 2505 Output Total 1999 / 1999 400 / 400 Balance 505 / 505 -400 / -400 Lab / Micro Data Result Diagrams: 02/12/21 05:28 Labs: Laboratory Results - last 24 hr 02/12/21 05:28: WBC 11.6 H, RBC 3.41 L, Hgb 10.5 L, Hct 31.4 L, MCV 92.1, MCH 30.8, MCHC 33.4, RDW Std Deviation 44.1 H, RDW Coeff of Phylicia 13.2, Plt Count 229, MPV 10.4 Physical Exam Const alert, oriented x3, no apparent distress, average body habitus, healthy appearing and well nourished Exam Limitations: no limitations HEENT normocephalic and moist oral mucous membranes Head and Scalp: atraumatic Face and Sinus: normal facial exam Eyes PERRL Neck full ROM Resp normal respiratory effort, no retractions and no use of accessory muscles GI normal to inspection, nondistended, normoactive bowel sounds Extremity normal to inspection, full ROM and no clubbing, cyanosis or edema Psych mental status grossly normal, affect normal and speech normal Assessment & Plan (1) delivery delivered: PLAN: Postoperative day 1 status post section. Breast-feeding. Pain well controlled. Possibly home today
[2021-02-12] MEDS: Multivitamins,Ther W-Minerals Tablet 1 TABLET PO (08:25)
[2021-02-12 08:33] VITALS: BP 119/78; PULSE 89; RESP 16; TEMP 36.8
[2021-02-12] MEDS: Ibuprofen 600 MG Tablet PO ×3 (09:49→21:32)
[2021-02-12] MEDS: Loratadine 10 MG Tablet PO (09:49)
[2021-02-12] MEDS: Senna/Docusate Sodium 1 Tablet PO (09:49)
[2021-02-12 14:09] VITALS: BP 128/71; PULSE 96; RESP 16; TEMP 36.2; O2SAT 97
[2021-02-12 19:35] VITALS: BP 130/73; PULSE 97; RESP 16; TEMP 36.2; O2SAT 97
[2021-02-13] MEDS: Acetaminophen 500 MG Tablet 1000 MG PO ×2 (01:13→12:09)
[2021-02-13 01:25] VITALS: BP 118/76; PULSE 95; RESP 18; TEMP 36.4; O2SAT 97
[2021-02-13] MEDS: Ibuprofen 600 MG Tablet PO ×2 (03:39→10:06)
[2021-02-13] MEDS: Labetalol 200 MG Tablet PO (05:34)
[2021-02-13] MEDS: Enoxaparin 40 MG/0.4 ML Syringe SC (05:35)
--- NOTE | 2021-02-13 08:10 | PCM.PN.OB ---
Subjective Subjective Postop day 2. Patient feeling well, pain control. Lochia minimal. Baby breast-feeding well. Objective Data Objective Data Vital Signs: Vital Signs Temp Pulse Resp BP Pulse Ox 97.6 F L 95 18 118/76 97 02/13/21 01:25 02/13/21 01:25 02/13/21 01:25 02/13/21 01:25 02/13/21 01:25 Oxygen Delivery Method Room Air Weight: 87.997 kg Body Mass Index (BMI) 29.5 Intake & Output: Intake and Output for Last 24 Hours 02/11/21 02/12/21 02/13/21 23:59 23:59 23:59 Intake Total 2505 / 2505 Output Total 1999 / 1999 400 / 400 Balance 505 / 505 -400 / -400 Lab / Micro Data Result Diagrams: 02/12/21 05:28 Physical Exam Const alert, oriented x3 and no apparent distress HEENT normocephalic Head and Scalp: atraumatic Eyes PERRL Neck full ROM Resp normal respiratory effort and no retractions Cardio regular rate GI normal to inspection, nondistended, normoactive bowel sounds GI Narrative: Incision covered with clean and dry bandage, uterus 2 cm below umbilicus. Extremity Extremity Narrative: Minimal pedal edema Neuro no focal motor deficits and no sensory deficits noted Psych mental status grossly normal Assessment & Plan (1) delivery delivered: PLAN: Postop day 2 status post section. Complicated by hypertension, continue labetalol. Patient is to monitor blood pressures at home and is aware she may need to adjust dosing, to notify office if blood pressures below 100/60. For 2-week postop check. Home today. (2) Hypertension affecting in third trimester:
--- NOTE | 2021-02-13 08:12 | DCINST_ITS ---
Discharge Instructions Diet Discharge Diet: No restrictions Activity Discharge Activity: Return to Normal Activity and May Shower May resume sexual activity in: 4-6 weeks Weight Bearing Status: Weight bearing as tolerated Lifting Restrictions: Nothing over 25 pounds Dressing / Incision Call your doctor if your incision/area has: Continuous Slow Oozing, Increased Redness and Foul Smelling Discharge Call your doctor if you observe: Fever of 101 or Higher, Inability to have a bowel movement, Using more than 1 pad per hour, Shortness of breath, Dizziness, Chest pain and Calf discomfort Remove Dressing in: 1 week Cleanse incision/area with: Soap & Water and Keep Dressing Clean & Dry Follow Up Care Please Follow Up With: Joana Tang MD When: 2 week post op, 6 week Test Results: Test results from this visit will be discussed in further detail at your follow-up appointment, if applicable. Discharge Plan Admission Admit Date/Time: 02/11/21 05:00 Attending Provider: Joana Tang Primary Care Provider: Albertina Encarnacion NP Instructions Forms: Information Discharge Orders/Prescriptions Prescriptions: New oxycodone 5 mg capsule 5 mg PO Q6H PRN PRN (Reason: Pain Score 4-10) Qty: 0 RF: 0 Continued pediatric vkkzlzhf-lkoa-yay 1 EACH tablet,chewable 1 ea PO DAILY RF: 0 loratadine [Claritin] 10 mg Tablet 10 mg PO DAILY RF: 0 labetalol 200 mg tablet 200 mg PO TID RF: 0 Discontinued aspirin 81 mg Tablet,Delayed Release (Dr/Ec) 81 mg PO DAILY RF: 0 Referrals / Follow Up: Albertina Encarnacion NP, FOLDER TIER-C [Primary Care Provider] - Disposition Disposition (needs filled in before D/C Order can be placed): Home, Self Care
[2021-02-13 09:00] VITALS: BP 128/85; PULSE 88; RESP 18; TEMP 36.1; O2SAT 97
[2021-02-13 13:00] VITALS: BP 123/77; PULSE 86
== END 2021-02-13 14:05 | disposition home or self-care (01) | DRG 788 ==
PROVIDERS: Admitting Provider Obstetrics & Gynecology; PCP Nurse Practitioner Family; Visit Provider Obstetrics & Gynecology
PROC: 10D00Z1 Extraction of Products of Conception, Low, Open Approach (ICD-10-PCS; CPT 59514; principal; 2021-02-11 07:15)
DX: O32.1XX0 Maternal care for breech presentation, not applicable or unspecified (principal); O16.4 Unspecified maternal hypertension, complicating childbirth; O13.4 Gestational [pregnancy-induced] hypertension without significant proteinuria, complicating childbirth; Z79.82 Long term (current) use of aspirin; Z79.899 Other long term (current) drug therapy; Z3A.37 37 weeks gestation of pregnancy; Z37.0 Single live birth
CPT/HCPCS: 85025; 85027; 86850; 86900; 86901; 88307; 99218; J7120; A4216; G0378; J2405

== ENCOUNTER → 2021-03-20 10:16 | Outpatient (CLI) | payer OTHER, SELFPAY ==
[2021-03-20 11:49] LABS: Vitamin B12 357 pg/mL (211-911); Vitamin D,25 Hydroxy 35.6 ng/mL
== END ==
PROVIDERS: PCP Nurse Practitioner Family; Visit Provider Obstetrics & Gynecology
DX: M81.0 Age-related osteoporosis without current pathological fracture (principal); E55.9 Vitamin D deficiency, unspecified; E53.8 Deficiency of other specified B group vitamins
CPT/HCPCS: 36415; 82306; 82607

== ENCOUNTER → 2021-10-15 | Outpatient (CLI) | payer OTHER, SELFPAY ==
--- NOTE | 2021-10-15 13:25 | BD_ITS ---
STUDY: DUAL ENERGY X-RAY ABSORPTIOMETRY / DXA REASON FOR EXAM: Female, 31 years old. OSTEOPOROSIS. Z94.0 Osteopenia TECHNIQUE: Bone Mineral Density (BMD) measurements were obtained. COMPARISON: None. FINDINGS: Lumbar Spine (L1-L4): g/cm2 (1.172) / T-score (1.2) / Z-score (1.2) Findings are suggestive of normal bone density with a low fracture risk. Left Femur Total: g/cm2 (.96) / T-score (.2) / Z-score (.2) Left Femoral Neck: g/cm2 (.83) / T-score (-.1) / Z-score (0) Right Femur Total: g/cm2 (.99) / T-score (.4) / Z-score (.4) Right Femoral Neck: g/cm2 (.88) / T-score (.3) / Z-score (.4) BD/Dexa Bone Density Study IMPRESSION: The patient is considered normal as outlined below according to World Robbie Organization (WHO) criteria with a low fracture risk. Reference Information: The T-score is the number of standard deviations above or below the standard which is normal for young adults at their peak bone mineral density. The World Health Organization (WHO) interprets the T-scores as follows: Above -1 Normal bone density Between -1 and -2.5 Osteopenia Equal to / or below -2.5 Osteoporosis As a practical clinical guideline, osteopenia may be graded as follows: Mild -1 through -1.5 Moderate -1.6 through -2.0 Severe -2.1 through -2.4 The Z-score is the number of standard deviations above or below age-matched controls. A Z-score of less than -1.5 would be considered abnormal. References: 1. NIH Osteoporosis and Related Bone Diseases http://www.osteo.org 2. International Society for Clinical Densitometry http://www.iscd.org 3. National Osteoporosis Foundation http://www.nof.org Electronically Signed: Steve Strong MD at 16:55 EDT ,
== END | disposition home or self-care (01) ==
PROVIDERS: PCP Nurse Practitioner Family; Referring Provider Obstetrics & Gynecology; Visit Provider Obstetrics & Gynecology
DX: Z87.310 Personal history of (healed) osteoporosis fracture (principal)
CPT/HCPCS: 77080

== ENCOUNTER → 2022-04-05 | Outpatient (CLI) | payer OTHER, SELFPAY ==
--- NOTE | 2022-04-05 | EMB_PTH ---
PATIENT: CLARISA REYES LOC: [facility] U#:[id number] AGE/SX: 32/F ROOM: RE04/05/[address]: Dr. Ailin Durand DO : 1990 BED: DIS: 04/05/2022 SPEC #: [id number] RECD: 04/05/22 11:02 STATUS: YOVANA RECat #: [id number] ACRLOS: 04/05/22 00:[address]: Ailin Durand DEPT: SURGICAL PATHOLOGY RECD BY: Terrance Winchester ENTERED: 04/05/22 11:02 SP TYPE: [facility] BX/C SAIGE DR: Albertina Encarnacion, MEDICAL CLAIMS ASSISTANT-C Tissues: Endometrium, NOS Procedures: Surgery Specimen Level IV HEADER OPERATION: Endometrial biopsy PRE-OP DIAGNOSIS: Abnormal bleeding TISSUE SUBMITTED: Endometrial biopsy MICROSCOPIC DIAGNOSIS Endometrium, biopsy: Weakly proliferative endometrium with focal glandular and stromal breakdown. AM:evita 04/06/2022 MICROSCOPIC DESCRIPTION Slides are reviewed. GROSS DESCRIPTION Received is one container labeled with the patient's name and not further designated. The specimen consists of multiple fragments of hemorrhagic soft tissue that in aggregate measure 2 x 1.5 x 0.1 cm. The specimen is totally submitted in one cassette. / SJ:evita 04/05/2022 TC:5 CPT: 39471
== END | disposition home or self-care (01) ==
LOC: LABSPEC 09:35
PROVIDERS: PCP Nurse Practitioner Family; Visit Provider Student in an Organized Health Care Education/Training Program
DX: N93.9 Abnormal uterine and vaginal bleeding, unspecified (principal)
CPT/HCPCS: 88305

== ENCOUNTER 2023-09-14 14:50 | Outpatient (CLI) | payer OTHER, SELFPAY ==
[2023-09-14 15:01] VITALS: BMI 28.7
[2023-09-14 15:12] VITALS: BP 141/85; PULSE 90; PULSE 98; RESP 15; TEMP 36.9; O2SAT 98; O2SAT 99
[2023-09-14 15:18] VITALS: PULSE 101; O2SAT 98
[2023-09-14 15:22] VITALS: BP 130/79; PULSE 85
[2023-09-14 15:41] LABS: ROM Internal Control Test YES-OK TO RESULT pt. (Internal QC); ROM Patient Test Negative (Negative); Record Kit Lot#, ROM+ K1409
--- NOTE | 2023-09-16 12:04 | OB.TRI.HP_ITS ---
HPI - General General Date of Admission: 09/14/23 Date of Service: 09/14/23 Chief Complaint: vaginal discharge HPI Narrative CLARISA REYES, is a 33 F who presents c/o vaginal discharge at home. [facility] Medical History (Updated 09/16/23 @ 10:20 by Kalina Franco, RN) Anxiety delivery delivered Chronic hypertension affecting Essential (primary) hypertension Hx of intrauterine growth restriction in prior , currently IBS (irritable bowel syndrome) IUFD at 20 weeks or more of gestation Lyme disease Multiple fractures Osteoporosis POTS (postural orthostatic tachycardia syndrome) Tachycardia TIA (transient ischemic attack) Home Medications pediatric cbrfckbn-mupf-zdf 1 ea PO DAILY 04/26/19 [History Last Taken 09/14/23] loratadine 10 mg tablet (Claritin) 10 mg PO DAILY aLLERGIES 01/12/21 [History Last Taken 09/14/23] aspirin 81 mg tablet,delayed release (Johnny Low Dose Aspirin) 81 mg PO DAILY 09/14/23 [History Last Taken 09/14/23] labetalol 200 mg tablet 200 mg PO BID HTN 09/16/23 [History Last Taken Unknown] Allergy/AdvReac Type Severity Reaction Status Date / Time Sulfa (Sulfonamide Allergy Intermediate Hives Verified 09/14/23 16:08 Antibiotics) latex Allergy Rash Verified 09/14/23 16:08 adhesive tape AdvReac Intermediate Rash Verified 09/16/23 10:19 Family History (Updated 09/16/23 @ 10:23 by Kalina Franco RN) Father Diabetes Hypertension Dementia Surgical History S/P dilation and curettage Social History adopted: No household members: spouse 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 Date Name GA/Weeks Outcome Route Bth Weight Infant Gen Labor Lgth Anesthesia Del Locatn Provider FOB 06/24/18 Roxi 24 still 9 oz Female 4 none [place] [facility] Wilkins Delivery Date: 06/24/18 Last Updated by: Joana Wilkins MD twin gestation with single 8w loss, then subsequent 24w loss NST FHR Rate Baby A Baseline: normal Variability:: Moderate Accelerations:: 10 x 10 NST Reactive:: Appropriate for gestational age FHR Category:: Category I Uterine Activity:: no regular ctxs Assessment & Plan (1) 24 weeks gestation of : PLAN: Plan high risk multigravida w/ vaginal discharge. No evidence of SROM d/javan to office for vaginitis eval
== END 2023-09-14 16:00 | disposition home or self-care (01) ==
LOC: WPOUT 14:57 → WP 14:58
PROVIDERS: PCP Nurse Practitioner Family; Referring Provider Obstetrics & Gynecology; Visit Provider Obstetrics & Gynecology
DX: O99.891 Other specified diseases and conditions complicating pregnancy (principal); N89.8 Other specified noninflammatory disorders of vagina; O10.912 Unspecified pre-existing hypertension complicating pregnancy, second trimester; Z79.899 Other long term (current) drug therapy; Z79.82 Long term (current) use of aspirin; Z3A.24 24 weeks gestation of pregnancy
CPT/HCPCS: 59050; 84112; 99221; G0378

== ENCOUNTER 2023-10-07 16:00 | Outpatient (CLI) | payer OTHER, SELFPAY ==
[2023-10-07] VITALS (8 sets, daily range): BP systolic 125–139; BP diastolic 65–77; PULSE 74–89; RESP 16; TEMP 37.1; O2SAT 97; BMI 29.5
[2023-10-07 16:46] LABS: Hematocrit 33.2 % (37-47); Hemoglobin 11.2 g/dL (12.0-15.0); Mean Corp Hgb Conc 33.7 g/dL (32-36); Mean Corpuscular Hgb 30.9 pg (27.0-32.0); Mean Corpuscular Volume 91.5 fL (81-99); Mean Platelet Vol. 10.3 fl (6.2-12.0); Platelet Count 290 K/mm3 (150-450); RBC Distribution Width SD 43.2 fl (35.1-43.9); Red Blood Count 3.63 M/mm3 (4.2-5.4); White Blood Count 11.1 K/mm3 (4.4-11.0)
[2023-10-07 17:02] LABS: AST(SGOT) 11 U/L (15-37); Alanine Aminotransfer ALT/SGPT 21 U/L (13-56); Creatinine, Serum 0.59 mg/dL (0.55-1.02); EST Glomerular Filtration Rate 125 mL/min (>60); Est Glom Filt Rate - Afr Amer 151 mL/min (>60); Estimated Creatinine Clearance 158.92 ml/min; Protein, Urine (Random) 18.7 mg/dL (<11.9); Protein:Creat Ratio 113 mg/g CRE (0-200); Uric Acid 4.9 mg/dL (2.6-6.0)
[2023-10-07] MEDS: Metoclopramide 5 MG TABLET PO (17:10)
[2023-10-07] MEDS: DiphenhydrAMINE 25 MG Capsule PO (17:10)
--- NOTE | 2023-10-07 18:07 | OB.TRI.NOTE ---
HPI - General General Date of Admission: 10/07/23 Date of Service: 10/07/23 Chief Complaint: Headache HPI Narrative CLARISA REYES, is a 33 F who presents a headache since yesterday. Pain radiates to right side behind ear. Does have neck pain. Chiropractor refuse to treat because of a history of TIA. Tylenol does not help. Migraine cocktail has helped in the past. PIH labs and BP monitoring WNL. Does monitor BP at home and has twice weekly testing starting next week. Maternal Data Information Final NIELS: 01/01/24 Gestational age: 27+5 [facility] Medical History Lyme disease Hx of intrauterine growth restriction in prior , currently Essential (primary) hypertension IBS (irritable bowel syndrome) TIA (transient ischemic attack) Anxiety Tachycardia Chronic hypertension affecting delivery delivered Multiple fractures IUFD at 20 weeks or more of gestation Osteoporosis POTS (postural orthostatic tachycardia syndrome) Home Medications ?Medication ?Instructions ?Recorded ?Last Taken ?Type pediatric tkhnpzvy-wtvt-kxo 1 ea PO DAILY 04/26/19 10/07/23 08:00 History loratadine 10 mg tablet (Claritin) 10 mg PO DAILY aLLERGIES 01/12/21 10/07/23 08:00 History aspirin 81 mg tablet,delayed 81 mg PO DAILY 09/14/23 10/07/23 08:00 History release (Johnny Low Dose Aspirin) labetalol 200 mg tablet 200 mg PO BID HTN 09/16/23 10/07/23 08:00 History metoclopramide HCl 5 mg tablet 5 mg PO DAILY #20 tabs 10/07/23 Unknown Rx (Reglan) Allergy/AdvReac Type Severity Reaction Status Date / Time Sulfa (Sulfonamide Allergy Intermediate Hives Verified 10/07/23 16:14 Antibiotics) latex Allergy Rash Verified 10/07/23 16:14 adhesive tape AdvReac Intermediate Rash Verified 10/07/23 16:14 Family History (Updated 09/16/23 @ 10:23 by Kalina Franco RN) Father Diabetes Hypertension Dementia Surgical History S/P dilation and curettage Social History adopted: No household members: spouse 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 Date Name GA/Weeks Outcome Route Bth Weight Gen Labor Lgth Anesthesia Del Locatn Provider FOB 06/24/18 Roxi 24 still 9 oz Female 4 none Laila Stevo Wilkins Delivery Date: 06/24/18 Last Updated by: Joana Wilkins MD twin gestation with single 8w loss, then subsequent 24w loss ROS ROS Narrative Headache since yesterday. Neck and face pain on right side Constitutional Constitutional: Reports headache(s); Denies fever(s) Respiratory/Chest Respiratory/Chest: Denies cough or dyspnea Gastrointestinal Gastrointestinal: Denies abdominal pain or cramping Musculoskeletal Musculoskeletal: Reports neck pain Neurologic Neurologic: Reports headache(s); Denies loss of vision Psychiatric Psychiatric: Reports systems reviewed and no addt'l complaints, except as documented Physical Exam Const alert and oriented x3 General Appearance: cooperative and comfortable Orientation / Consciousness: awake and oriented to person HEENT normocephalic and head/scalp atraumatic Face and Sinus: normal facial exam Eyes PERRL and EOMs intact bilaterally Neck full ROM Resp normal respiratory effort OB / External & Speculum: deferred Manual OB Exam: deferred Psych mental status grossly normal NST FHR Rate Baby A Baseline: 140 Variability:: Moderate Accelerations:: 10 x 10 Decelerations:: None NST Reactive:: Appropriate for gestational age FHR Category:: Category I Assessment & Plan (1) Chronic hypertension affecting : (2) Headache in : QUALIFIERS: Trimester: second trimester Qualified Code(s): O26.892 - Other specified related conditions, second trimester; R51.9 - Headache, unspecified PLAN: Plan Headache improved with Benadryl and Reglan, BPS with in range. PIH labs normal
== END 2023-10-07 18:15 | disposition home or self-care (01) ==
LOC: WP 18:11 → WPOUT 10-10 09:08
PROVIDERS: PCP Nurse Practitioner Family; Visit Provider Obstetrics & Gynecology
DX: O99.891 Other specified diseases and conditions complicating pregnancy (principal); R51.9 Headache, unspecified; O16.2 Unspecified maternal hypertension, second trimester; Z3A.27 27 weeks gestation of pregnancy; Z86.73 Personal history of transient ischemic attack (TIA), and cerebral infarction without residual deficits
CPT/HCPCS: 36415; 59025; 59050; 82565; 82570; 84156; 84450; 84460; 84550; 85027; 99221; G0378

== ENCOUNTER 2023-11-30 13:15 | Inpatient (IN) | payer OTHER, SELFPAY ==
[2023-11-30] VITALS (37 sets, daily range): BP systolic 99–173; BP diastolic 50–101; PULSE 76–114; RESP 16–18; TEMP 36.1–36.7; O2SAT 95–99; BMI 31.0
[2023-11-30 12:31] LABS: Hematocrit 33.2 % (37-47); Mean Corp Hgb Conc 33.1 g/dL (32-36); Mean Corpuscular Hgb 29.6 pg (27.0-32.0); Mean Corpuscular Volume 89.2 fL (81-99); Mean Platelet Vol. 10.7 fl (6.2-12.0); Platelet Count 267 K/mm3 (150-450); RBC Distribution Width CV 12.9 % (11.6-14.6); RBC Distribution Width SD 41.8 fl (35.1-43.9); Red Blood Count 3.72 M/mm3 (4.2-5.4); White Blood Count 9.3 K/mm3 (4.4-11.0)
[2023-11-30 13:00] LABS: Protein, Urine (Random) 39.1 mg/dL (<11.9); Protein:Creat Ratio 372 mg/g CRE (0-200)
[2023-11-30 13:16] LABS: AST(SGOT) 19 U/L (15-37); Alanine Aminotransfer ALT/SGPT 20 U/L (13-56); Creatinine, Serum 0.69 mg/dL (0.55-1.02); EST Glomerular Filtration Rate 104 mL/min (>60); Est Glom Filt Rate - Afr Amer 126 mL/min (>60); Estimated Creatinine Clearance 139.22 ml/min; Uric Acid 5.6 mg/dL (2.6-6.0)
[2023-11-30] MEDS: Labetalol 200 MG Tablet 300 MG PO ×2 (13:44→21:32)
[2023-11-30] MEDS: NIFEdipine 10 MG Capsule PO ×2 (13:44→21:00)
[2023-11-30] MEDS: Betamethasone/Betamethasone 30 MG/5 ML Vial 12 MG IM (13:55)
[2023-11-30] MEDS: Lactated Ringers 1,000 ML 999 ML IV (14:05)
[2023-11-30] MEDS: Acetaminophen 500 MG Tablet 1000 MG PO ×2 (15:03→21:01)
[2023-11-30 15:05] LABS: Syphilis Antibodies Non-reactive
[2023-11-30] MEDS: Lactated Ringers 1,000 ML 150 ML IV (15:05)
[2023-11-30] MEDS: Sodium Citrate/Citric Acid 30 ML UDC PO (16:33)
[2023-11-30] MEDS: Cefazolin 2 GM in 0.9% Normal Saline (100mL Bag) 100 ML IV (16:49)
--- NOTE | 2023-11-30 16:56 | PCM.HP.OB ---
HPI - General General Date of Admission: 11/30/23 Date of Service: 11/30/23 Chief Complaint: increased BP HPI Narrative CLARISA REYES, is a 33 F who presents from the office for increasing blood pressures. She has a history of chronic hypertension. However her blood pressures at home have been trending up and were significantly elevated. She has had a mild headache. No visual changes. Denies any epigastric pain. Has had good movement and no regular contractions. Past medical history significant for chronic hypertension, history of migraines, history of previous section, history of TIA, history of pots syndrome, and history of preeclampsia. Obstetrical history 1 previous 37-week breech section for preeclampsia Second was a twin with loss of 1 twin in first trimester and with loss of second twin and second trimester Maternal Data Information Final NIELS: 01/01/24 Gestational age: 35 3/7 PFSH PFSH Medical History (Updated 11/30/23 @ 17:[address] Karen Escudero MD) Pre-eclampsia Lyme disease Hx of intrauterine growth restriction in prior , currently Essential (primary) hypertension IBS (irritable bowel syndrome) TIA (transient ischemic attack) Anxiety Tachycardia Chronic hypertension affecting delivery delivered Multiple fractures IUFD at 20 weeks or more of gestation Osteoporosis POTS (postural orthostatic tachycardia syndrome) Home Medications ?Medication ?Instructions ?Recorded ?Last Taken ?Type pediatric scwtetfh-ybjf-hga 1 ea PO DAILY 04/26/19 11/30/23 07:00 History 1 ea loratadine 10 mg tablet (Claritin) 10 mg PO DAILY aLLERGIES 01/12/21 11/30/23 07:00 History 10 mg aspirin 81 mg tablet,delayed 81 mg PO DAILY 09/14/23 11/30/23 07:00 History release (Johnny Low Dose Aspirin) 81 mg labetalol 200 mg tablet 300 mg PO TID HTN 10/12/23 11/30/23 07:00 History 300 mg metoclopramide HCl 5 mg tablet 5 mg PO DAILY PRN migraine headache 10/12/23 11/29/23 15:00 History (Reglan) 5 mg diphenhydramine HCl 25 mg capsule 25 mg PO Q8H PRN migraines 11/30/23 Unknown History (Aler-Cap) Allergy/AdvReac Type Severity Reaction Status Date / Time Sulfa (Sulfonamide Allergy Intermediate Hives Verified 11/30/23 12:00 Antibiotics) latex Allergy Rash Verified 11/30/23 12:00 adhesive tape AdvReac Intermediate Rash Verified 11/30/23 12:00 Family History Father Diabetes Hypertension Dementia Surgical History (Updated 11/30/23 @ 17:[address] 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 Date Name GA/Weeks Outcome Route Bth Weight Gen Labor Lgth Anesthesia Del Locatn Provider FOB 06/24/18 Roxi 24 still 9 oz Female 4 none Laila Stevo Wilikns Delivery Date: 06/24/18 Last Updated by: Joana Wilkins MD twin gestation with single 8w loss, then subsequent 24w loss ROS Constitutional Constitutional: Denies fatigue, fever(s) or malaise Eyes Eyes: Denies change in vision ENT HEENT: Denies dizziness or headache(s) Cardiovascular Cardiovascular: Denies chest pain, dyspnea or lightheadedness Respiratory/Chest Respiratory/Chest: Denies cough or dyspnea Gastrointestinal Gastrointestinal: Denies change in bowel habits Genitourinary Genitourinary: Denies burning urination or genital lesions Integumentary Integumentary: Denies rash Neurologic Neurologic: Reports headache(s); Denies confusion, dizziness, numbness or weakness Vital Signs Vital Signs Vital Signs: 11/30/23 12:10 11/30/23 12:10 11/30/23 12:10 Temperature Temperature Source Pulse Rate 80 83 Respiratory Rate Blood Pressure 135/91 H Blood Pressure Mean BP Systolic 135 BP Diastolic 91 Blood Pressure Source Blood Pressure Position Blood Pressure Location Pulse Ox Oxygen Delivery Method 11/30/23 12:10 11/30/23 12:10 11/30/23 12:10 Temperature Temperature Source Temporal Pulse Rate Respiratory Rate 16 Blood Pressure Blood Pressure Mean BP Systolic BP Diastolic Blood Pressure Source Blood Pressure Position Blood Pressure Location Pulse Ox 96 Oxygen Delivery Method 11/30/23 12:10 11/30/23 12:24 11/30/23 12:24 Temperature 97.6 F L Temperature Source Pulse Rate 94 Respiratory Rate Blood Pressure 143/101 H Blood Pressure Mean BP Systolic 143 BP Diastolic 101 Blood Pressure Source Blood Pressure Position Blood Pressure Location Pulse Ox Oxygen Delivery Method 11/30/23 12:27 11/30/23 12:27 11/30/23 12:39 Temperature Temperature Source Pulse Rate 84 Respiratory Rate Blood Pressure 150/84 H 153/90 H Blood Pressure Mean BP Systolic 150 153 BP Diastolic 84 90 Blood Pressure Source Blood Pressure Position Blood Pressure Location Pulse Ox Oxygen Delivery Method 11/30/23 12:39 11/30/23 12:54 11/30/23 12:54 Temperature Temperature Source Pulse Rate 93 84 Respiratory Rate Blood Pressure 151/89 H Blood Pressure Mean BP Systolic 151 BP Diastolic 89 Blood Pressure Source Blood Pressure Position Blood Pressure Location Pulse Ox Oxygen Delivery Method 11/30/23 13:09 11/30/23 13:09 11/30/23 13:40 Temperature Temperature Source Pulse Rate 88 Respiratory Rate Blood Pressure 149/88 H 173/93 H Blood Pressure Mean BP Systolic 149 173 BP Diastolic 88 93 Blood Pressure Source Blood Pressure Position Blood Pressure Location Pulse Ox Oxygen Delivery Method 11/30/23 13:40 11/30/23 14:35 11/30/23 14:35 Temperature Temperature Source Pulse Rate 83 98 Respiratory Rate Blood Pressure 134/80 H Blood Pressure Mean BP Systolic 134 BP Diastolic 80 Blood Pressure Source Blood Pressure Position Blood Pressure Location Pulse Ox Oxygen Delivery Method 11/30/23 14:50 11/30/23 14:50 11/30/23 15:05 Temperature Temperature Source Pulse Rate 88 Respiratory Rate Blood Pressure 146/89 H 156/90 H Blood Pressure Mean BP Systolic 146 156 BP Diastolic 89 90 Blood Pressure Source Blood Pressure Position Blood Pressure Location Pulse Ox Oxygen Delivery Method 11/30/23 15:05 11/30/23 15:20 11/30/23 15:20 Temperature Temperature Source Pulse Rate 91 76 Respiratory Rate Blood Pressure 151/89 H Blood Pressure Mean BP Systolic 151 BP Diastolic 89 Blood Pressure Source Blood Pressure Position Blood Pressure Location Pulse Ox Oxygen Delivery Method 11/30/23 15:47 11/30/23 15:47 11/30/23 16:02 Temperature Temperature Source Pulse Rate 78 Respiratory Rate Blood Pressure 132/73 H 139/78 H Blood Pressure Mean BP Systolic 132 139 BP Diastolic 73 78 Blood Pressure Source Blood Pressure Position Blood Pressure Location Pulse Ox Oxygen Delivery Method 11/30/23 16:02 11/30/23 16:41 Temperature 97.9 F Temperature Source Temporal Pulse Rate 77 77 Respiratory Rate 18 Blood Pressure 139/78 H Blood Pressure Mean 98 BP Systolic BP Diastolic Blood Pressure Source Monitor Blood Pressure Position Semi-Fowlers Blood Pressure Location Right Arm Pulse Ox 99 Oxygen Delivery Method Room Air Weight Weight: 92.5 kg Body Mass Index (BMI) 31.0 Physical Exam Const alert and no apparent distress General Appearance: cooperative HEENT normocephalic Resp normal respiratory effort Cardio regular rate GI soft to palpation GI Narrative: gravid, nontender, appropriate for gestational age Extremity no calf tenderness General Extremity: edema Skin no wounds Rashes: No rashes noted Psych activity/motor behavior normal Labs Labs Labs: Blood Type O POSITIVE Antibody Screen NEGATIVE Hct 33.2 % (37-47) L Hgb 11.0 g/dL (12.0-15.0) L Obstetrics Ultrasound Syphilis Total Ab Non-reactive Rubella IgG Antibody Reactive (Nonreactive) Hep Bs Antigen Non-Reactive (Nonreactive) Hepatitis C Antibody Non-Reactive (Nonreactive) HIV 1&2 Antibody Non-Reactive (Nonreactive) Rhogam given: No Miscellaneous Test Assessment & Plan (1) Hypertension affecting in third trimester: (2) 35 weeks gestation of : (3) High risk multigravida in third trimester: (4) Pre-eclampsia superimposed on chronic hypertension: (5) Previous delivery affecting : PLAN: Risk benefits and alternatives to repeat section at 35 weeks due to preeclampsia superimposed on chronic hypertension were reviewed with the patient, her questions were answered to her satisfaction she desires to proceed. Pediatric team notified. Patient received 1 dose of betamethasone. Received 1 dose of p.o. Procardia and is currently continuing her home labetalol. Patient understands her special care nursery is full and if needs special care nursery will need to be transferred to [facility]. Her questions were answered to her satisfaction she desires to proceed. Consent was signed for surgery.
--- NOTE | 2023-11-30 17:06 | OP.PCM_ITS ---
Assessment & Plan (1) Previous delivery affecting : (2) Pre-eclampsia superimposed on chronic hypertension: (3) High risk multigravida in third trimester: (4) 35 weeks gestation of : Maternal Data Information Final NIELS: [birth year] Gestational age: 35 3/7 Details Operative Information Date of Procedure: 11/30/23 Pre-Operative Diagnosis: preeclampsia w/ intermittent severe range BPs, complete breech, previous c/s, 35 weeks Post-Operative Diagnosis: same Indications for : Repeat Elective Classification: Scheduled Procedure Type: low transverse station air traffic control specialist #1: Sosa Gutierrez Type of Anesthesia: Spinal Anesthesiologist: David Johns Special Medications: duramorph Antibiotic Given: Ancef 2 grams IV x1 Drain: Gan to straight drain Estimated Blood Loss: 800 Fluids Replaced: 950 Procedure Start Time: 17:18 Procedure Stop Time: 17:47 Time of Delivery: 17:21 Findings Description of Procedure: The patient was taken to the operating room. She was prepped and draped in the dorsal supine position with a leftward tilt. A Pfannenstiel skin incision was made approximately 2 cm above the symphysis pubis and carried through to underlying layer fascia with the scalpel. The fascia was incised incised in the midline and extended laterally with the Hernandez scissors. The fascia was dissected off the rectus muscles with blunt and sharp dissection. The rectus muscles were in the midline and the peritoneum was entered bluntly. The peritoneal incision was stretched and the bladder blade was placed. The uterine incision was made in a low transverse fashion with the scalpel and extended superiorly and inferiorly with blunt dissection. The amniotic membranes were ruptured bluntly and clear amniotic fluid returned. The infant's head was brought to the incision in the flexed position and delivered without difficulty. The remainder of the was delivered with gentle traction and fundal pressure in the standard fashion. The mouth and nares were bulb suctioned. The cord was clamped and cut as the was stimulated. Cord clamping was delayed. The infant was handed off to the waiting nursing staff. The placenta was delivered with fundal massage and gentle traction in the standard fashion. The uterus was exteriorized and cleared of all clots and debris. The cervix was dilated with a ring forcep. The uterine incision was closed with #1 Vicryl in a running locked fashion. A second layer of the same suture was used in an imbricating fashion. The incision was examined and was found to be hemostatic. Some hemoblast was placed over the incision. The uterus was placed back into the peritoneal cavity and hemostasis was again confirmed. The rectus muscles were examined and any bleeding was Bovie cauterized. The parietal peritoneum and rectus muscles were closed en bloc with an 0 Vicryl running suture. Some hemoblast was placed over the rectus muscles. The rectus fascia was examined and any bleeding was Bovie cauterized and the rectus fascia was closed with #1 PDS suture in a running standard fashion. The subcutaneous tissue was examining and any bleeding was Bovie cauterized. The subcutaneous tissue was reapproximated with 3-0 Vicryl suture. Some hemoblast was placed in the subcutaneous tissue. The skin was closed in a subcuticular fashion with 3-0 Monocryl. I performed the entire procedure with assistance. All sponge, lap, and needle counts were correct. The patient was taken to her room for recovery in a stable condition. Presentation: Positive for Complete Breech Amniotic Membrane Rupture Type: Artificial Amniotic Fluid Description: Clear Placental Delivery Description: Expressed Placenta Disposition: Sent to Pathology Specimen(s) Sent to Pathology: placenta Cord Vessel Description: 3 Vessels Cord Entanglement: Around neck x 2, tight Nuchal Cord Compression: Without compression Cord Gases: ABG and VBG A Gender: Female (1 minute): 7 (5 minute): 8 Delayed Cord Clamping: No Complications Complications: None
[2023-11-30] MEDS: Oxytocin 15 Units/NS 250ml 15 UNITS/250 ML IV.SOLN 83 UNITS IV (18:30)
[2023-11-30] MEDS: Magnesium Sulfate 4gm/100mL 4 GM/100 ML IV.SOLN. IV (18:50)
[2023-11-30] MEDS: Lactated Ringers 1,000 ML 25 ML IV (18:57)
[2023-11-30] MEDS: Magnesium Sulfate 20 GM/500 ML BAG IV (19:12)
[2023-11-30] MEDS: Ketorolac 30 MG/ML Syringe IV (19:47)
[2023-11-30] MEDS: NIFEdipine 10 MG Capsule 20 MG PO (21:36)
--- NOTE | 2023-11-30 21:54 | NURSING ---
Dr Escudero aware patient painful ok for dilaudid per Dr Nat ARNDT.
[2023-11-30] MEDS: NIFEdipine 30 MG Tablet PO (22:00)
[2023-11-30] MEDS: LACTATED RINGERS 500 ML 999 ML IV (23:31)
[2023-12-01] VITALS (22 sets, daily range): BP systolic 111–137; BP diastolic 61–83; PULSE 85–101; RESP 16–18; TEMP 35.8–36.6; O2SAT 96–98
[2023-12-01] MEDS: Ketorolac 30 MG/ML Syringe IV ×3 (00:19→12:14)
[2023-12-01] MEDS: Acetaminophen 500 MG Tablet 1000 MG PO ×4 (03:17→21:04)
[2023-12-01 04:26] LABS: Hematocrit 32.8 % (37-47); Hemoglobin 10.9 g/dL (12.0-15.0); Mean Corp Hgb Conc 33.2 g/dL (32-36); Mean Corpuscular Hgb 29.8 pg (27.0-32.0); Mean Corpuscular Volume 89.6 fL (81-99); Mean Platelet Vol. 10.5 fl (6.2-12.0); Platelet Count 295 K/mm3 (150-450); RBC Distribution Width CV 12.7 % (11.6-14.6); RBC Distribution Width SD 41.9 fl (35.1-43.9); Red Blood Count 3.66 M/mm3 (4.2-5.4); White Blood Count 19.3 K/mm3 (4.4-11.0)
[2023-12-01] MEDS: Enoxaparin 40 MG/0.4 ML Syringe SC (05:27)
[2023-12-01] MEDS: Magnesium Sulfate 20 GM/500 ML BAG IV ×2 (05:34→15:23)
[2023-12-01] MEDS: Labetalol 200 MG Tablet 300 MG PO ×3 (05:50→21:05)
--- NOTE | 2023-12-01 08:54 | PCM.PN.OB ---
Subjective Subjective Doing well. Mag still on. Feels drained. Baby at main campus. Pumping for baby. Moderate lochia. Gan intact Objective Data Objective Data Vital Signs: Vital Signs Temp Pulse Resp BP Pulse Ox O2 Del Method 97.1 F L 87 16 119/71 98 Room Air 12/01/23 08:15 12/01/23 08:15 12/01/23 08:15 12/01/23 08:15 12/01/23 08:15 12/01/23 08:15 Oxygen Delivery Method Room Air Weight: 92.5 kg Body Mass Index (BMI) 31.0 Intake & Output: Intake and Output for Last 24 Hours 11/29/23 11/30/23 12/01/23 23:59 23:59 23:59 Intake Total 2530 / 2580 1200 / 1200 Output Total 1500 / 1750 2400 / 2400 Balance 1030 / 830 -1200 / -1200 Lab / Micro Data 12/01/23 04:19 11/30/23 12:17 Labs: Laboratory Results - last 24 hr 11/30/23 12:17: WBC 9.3, RBC 3.72 L, Hgb 11.0 L, Hct 33.2 L, MCV 89.2, MCH 29.6, MCHC 33.1, RDW Std Deviation 41.8, RDW Coeff of Phylicia 12.9, Plt Count 267, MPV 10.7, Creatinine 0.69, Estim Creat Clear Calc 139.22, Est GFR (MDRD) Af Amer 126, Est GFR (MDRD) Non-Af 104, Uric Acid 5.6, AST 19, ALT 20, U Random Total Protein 39.1 H, Urine Creatinine 105.00, Protein/Creatinin Ratio 372 H 11/30/23 14:05: Syphilis Total Ab Non-reactive, Blood Type O POSITIVE, Antibody Screen NEGATIVE 12/01/23 04:19: WBC 19.3 H, RBC 3.66 L, Hgb 10.9 L, Hct 32.8 L, MCV 89.6, MCH 29.8, MCHC 33.2, RDW Std Deviation 41.9, RDW Coeff of Phylicia 12.7, Plt Count 295, MPV 10.5 ROS Constitutional Constitutional: Denies fatigue, fever(s) or malaise Eyes Eyes: Denies change in vision ENT HEENT: Denies dizziness or headache(s) Cardiovascular Cardiovascular: Denies chest pain, dyspnea or lightheadedness Respiratory/Chest Respiratory/Chest: Denies cough or dyspnea Neurologic Neurologic: Denies confusion, dizziness, headache(s), numbness or weakness Physical Exam Const alert General Appearance: cooperative HEENT Head and Scalp: temporal artery tenderness GI GI Narrative: soft, moderate distention, fundus firm, appropriately tender. Abdominal bandage clean dry and intact Assessment & Plan (1) S/P : (2) Pre-eclampsia superimposed on chronic hypertension: PLAN: Plan Mag to stop tonight. Currently on Labatolol and procardia
[2023-12-01] MEDS: NIFEdipine 30 MG Tablet PO (10:07)
[2023-12-01] MEDS: Senna/Docusate Sodium 1 Tablet PO (10:34)
[2023-12-01] MEDS: Lactated Ringers 1,000 ML 25 ML IV (12:15)
[2023-12-01] MEDS: Ibuprofen 600 MG Tablet PO ×2 (18:06→23:59)
[2023-12-02] VITALS (11 sets, daily range): BP systolic 112–154; BP diastolic 58–85; PULSE 75–96; RESP 16; TEMP 36.4–36.7; O2SAT 97–98
[2023-12-02] MEDS: Acetaminophen 500 MG Tablet 1000 MG PO ×3 (03:03→14:40)
[2023-12-02] MEDS: Enoxaparin 40 MG/0.4 ML Syringe SC (06:11)
[2023-12-02] MEDS: Ibuprofen 600 MG Tablet PO ×3 (06:11→18:06)
--- NOTE | 2023-12-02 06:53 | PCM.PN.OB ---
Subjective Subjective Feels better since mag stopped(11/30 1800). No longer with a Headache. Mild lochia pain controlled. Ambulating without difficulty. Baby at [facility] main. Might get transferred back Objective Data Objective Data Vital Signs: Vital Signs Temp Pulse Resp BP Pulse Ox O2 Del Method 97.7 F L 75 16 112/58 L 97 Room Air 12/02/23 02:14 12/02/23 06:11 12/02/23 02:14 12/02/23 06:11 12/02/23 02:14 12/02/23 02:14 Oxygen Delivery Method Room Air Weight: 92.5 kg Body Mass Index (BMI) 31.0 Intake & Output: Intake and Output for Last 24 Hours 11/30/23 12/01/23 12/02/23 23:59 23:59 23:59 Intake Total 2530 / 2580 2960.41 / 2960.41 Output Total 1500 / 1750 3730 / 3730 Balance 1030 / 830 -769.59 / -769.59 Lab / Micro Data 12/01/23 04:19 11/30/23 12:17 ROS Constitutional Constitutional: Denies fatigue, fever(s) or malaise Eyes Eyes: Denies change in vision ENT HEENT: Denies dizziness or headache(s) Cardiovascular Cardiovascular: Denies chest pain, dyspnea or lightheadedness Respiratory/Chest Respiratory/Chest: Denies cough or dyspnea Neurologic Neurologic: Denies confusion, dizziness, headache(s), numbness or weakness Physical Exam Const alert General Appearance: cooperative GI GI Narrative: soft, moderate distention, fundus firm, appropriately tender. Abdominal bandage clean dry and intact Assessment & Plan (1) S/P : (2) Pre-eclampsia superimposed on chronic hypertension: PLAN: Plan BP stable continue to monitor. Expect discharge tomorrow
[2023-12-02] MEDS: Labetalol 200 MG Tablet 300 MG PO ×2 (08:26→14:18)
[2023-12-02] MEDS: Senna/Docusate Sodium 1 Tablet PO (09:33)
--- NOTE | 2023-12-02 17:47 | PCM.DC.SUM ---
Providers Date of Admission: 11/30/23 Primary Care Physician: HERON Caldwell Reason For Visit: REPEAT C SECTION Diagnosis Discharge Diagnosis (1) S/P : Status: Acute Code(s): Z98.891 - History of uterine scar from previous surgery (2) Pre-eclampsia superimposed on chronic hypertension: Status: Chronic Code(s): O11.9 - Pre-existing hypertension with pre-eclampsia, unspecified trimester Medications at Discharge Home Medications pediatric jswzdqqn-hyak-vgc 1 ea PO DAILY 04/26/19 loratadine 10 mg tablet (Claritin) 10 mg PO DAILY aLLERGIES 01/12/21 labetalol 200 mg tablet 300 mg PO TID HTN 10/12/23 diphenhydramine HCl 25 mg capsule (Aler-Cap) 25 mg PO Q8H PRN migraines 11/30/23 Hospital Course Operations - (repeat LTCS on 11/30/23) Summary of Care Provided Minutes Spent on Discharge: 9 Hospital Course: 33-year-old multigravida female whose was complicated by history of a second trimester demise, history of previous section, chronic hypertension presented complaining of headache and elevated blood pressures at home. She was found to have preeclampsia superimposed on her chronic hypertension. She underwent a repeat section on 11/30/2023. She was 35 weeks. The section was performed without difficulty. Her postoperative course was unremarkable other than she did have blood pressures in the severe range. Hypertensive protocol was initiated. She received magnesium prophylaxis for 24 hours . The had to be transferred to [facility] for care. By postoperative day #2 she was ambulating, urinating tolerating regular diet. It was recommended that she stay for monitoring because of the preeclampsia but she declined and elected to be discharged so she could spend time with the baby in the special care nursery. She will monitor her blood pressures closely. She can take Procardia if her blood pressure is above 140/85. She will continue her labetalol 300 mg 3 times daily. Follow-up in the office in 2 to 3 days or return or call as needed for signs or symptoms of severe preeclampsia. Patient is comfortable with this plan. She was given routine pain medications. Weight / BMI Weight Weight: 92.5 kg Body Mass Index (BMI) 31.0 ABG / Lab / Microbiology Data 12/01/23 04:19 11/30/23 12:17 D/C Instructions Discharge Diet: No restrictions May resume sexual activity in: 4-6 weeks Lifting Restrictions: 20 pounds Additional Activity Instructions: Nothing in the vagina for 4-6 weeks. You may return to work/school in 6 weeks. Call your doctor if your incision/area has: Continuous Slow Oozing, Sudden Increased Bleeding, Increased Pain/ Swelling, Increased Redness and Foul Smelling Discharge Call your doctor if you observe: Fever of 101 or Higher and Using more than 1 pad per hour (for 2 hours) Suture Line Care: Avoid Pulling/Pushing and Avoid Pinching/Bending Cleanse incision/area with: Keep Dressing Clean & Dry Please Follow Up With: Jen Murphy MD When: Call to make an appointment for a BP check on Tuesday12/04/22. You will need a post check in 6 weeks. Meaningful Use Info Meaningful Use Meaningful Use Diagnoses (Choose all that apply): None applicable Ischemic Stroke Statin Dosing Therapy Reference: STATIN DOSE THERAPY REFERENCE: * Patients > 75 years receive moderate or high dose statin therapy. * Patients 75 years or YOUNGER should receive HIGH intensity statin dose unless contraindicated. You will be required to document reason for non-treatment if statin daily dose does not meet guidelines. HIGH DOSE STATIN THERAPY DAILY Atorvastatin > than or = to 40 mg Rosuvastatin > than or = to 20 mg Amlodipine + Atorvastatin > than or = to 2.5/40 mg Ezetimibe + Simvastatin 10/80 mg Simvastatin 80mg Discharge Plan Admission Admit Date/Time: 11/30/23 13:15 Primary Reason for Your Visit: Preeclampsia with severe features Attending Provider: Karen Escudero Primary Care Provider: Albertina Encarnacion NP Discharge Orders/Prescriptions Prescriptions: Continued loratadine [Claritin] 10 mg Tablet 10 mg PO DAILY labetalol 200 mg tablet 300 mg PO TID diphenhydramine HCl [Aler-Cap] 25 mg capsule 25 mg PO Q8H PRN (Reason: migraines) Rx Instructions: take with reglan Discontinued metoclopramide HCl [Reglan] 5 mg tablet 5 mg PO DAILY PRN (Reason: migraine headache) aspirin [Johnny Low Dose Aspirin] 81 mg tablet,delayed release (DR/EC) 81 mg PO DAILY No Action pediatric yljlefiy-dyfg-por 1 EACH tablet,chewable 1 ea PO DAILY Referrals / Follow Up: Albertina Encarnacion ARCHIVIST MILITARY HISTORY, ARCHIVIST MILITARY HISTORY-C [Primary Care Provider] - Disposition Disposition (needs filled in before D/C Order can be placed): Home, Self Care
== END 2023-12-02 19:05 | disposition home or self-care (01) | DRG 788 ==
LOC: WP 13:26 → WPOUT 12-02 09:30
PROVIDERS: Admitting Provider Obstetrics & Gynecology; PCP Nurse Practitioner Family; Referring Provider Obstetrics & Gynecology; Visit Provider Obstetrics & Gynecology
DX: O11.4 Pre-existing hypertension with pre-eclampsia, complicating childbirth (principal); O32.1XX0 Maternal care for breech presentation, not applicable or unspecified; O34.211 Maternal care for low transverse scar from previous cesarean delivery; O69.1XX0 Labor and delivery complicated by cord around neck, with compression, not applicable or unspecified; Z3A.35 35 weeks gestation of pregnancy; Z37.0 Single live birth; Z79.82 Long term (current) use of aspirin; Z79.899 Other long term (current) drug therapy
CPT/HCPCS: 59025; 59050; 82565; 82570; 84156; 84450; 84460; 84550; 85027; 86780; 86850; 86900; 86901; 99221; J7120; G0378; J0702

== ENCOUNTER 2024-06-27 21:35 | Emergency (ER) | payer OTHER, SELFPAY ==
[2024-06-27 21:37] VITALS: BP 143/104; PULSE 97; RESP 18; TEMP 36.7; O2SAT 99; BMI 27.1
[2024-06-27 23:18] VITALS: BMI 27.1
--- NOTE | 2024-06-27 23:37 | CT_ITS ---
PROCEDURE: CTA HEAD AND NECK W/ CONTRAST REASON FOR EXAM: Left-sided weakness TECHNIQUE: Noncontrast images were initially acquired through the head. CTA imaging of the head and neck from the aortic arch to the skull vertex with intravenous contrast. 3D reconstructions. Percentage of stenosis is based on NASCET criteria. One or more dose reduction techniques were used (e.g., Automated exposure control, adjustment of the mA and/or kV according to patient size, use of iterative reconstruction technique). CONTRAST: 100 mL Isovue 370. COMPARISON: None. FINDINGS: Head CT: No acute intracranial hemorrhage or extra-axial collection. The jacinto-white matter differentiation is normal and there are no CT findings for acute territorial infarct. Incidentally noted is an arachnoid cyst in the posterior fossa ventricles are normal in size and configuration, without midline shift or mass effect. Calvarium is intact. Imaged globes and orbits are normal. There is mucosal thickening in the ethmoid air cells. CTA neck: Aortic Arch: Normal size and branching pattern. No significant atherosclerotic plaque. Brachiocephalic and Subclavians: Unremarkable RIGHT Carotid: Right CCA: Unremarkable. Right ICA: Unremarkable. Maximum stenosis (NASCET): 0 % Right ECA: Unremarkable. LEFT Carotid: Left CCA: Unremarkable. Left ICA: Unremarkable. Maximum stenosis (NASCET): 0 % Left ECA: Unremarkable. Vertebrals: Codominant. Arise from the subclavians. Both vertebrals form the basilar. RIGHT Vertebral: Unremarkable. LEFT Vertebral: Unremarkable. CTA head: No intracranial aneurysms or large vascular malformations are identified. Anterior cerebral arteries: Unremarkable. Middle cerebral arteries: Unremarkable. Basilar artery: Unremarkable. Posterior cerebral arteries: Unremarkable. Other major branches of the posterior circulation: Unremarkable. Major venous structures: Unremarkable. Other findings: No lymphadenopathy. Lung apices are clear. Bones are unremarkable. CT/CTA Head AND Neck W/ Contrast IMPRESSION: NO ACUTE INTRACRANIAL ABNORMALITY. NEGATIVE FOR HEMODYNAMICALLY SIGNIFICANT STENOSIS. NEGATIVE FOR LARGE VESSEL O CCLUSION. Reading Location: [id number]
[2024-06-27 23:46] VITALS: BP 134/95; PULSE 90; RESP 17; O2SAT 97
[2024-06-27] MEDS: 0.9% Normal Saline (1000mL) 1,000 ML 999 ML IV (23:53)
[2024-06-27] MEDS: Ketorolac 30 MG/ML Syringe IV (23:53)
[2024-06-27] MEDS: Metoclopramide 10 MG/2 ML Vial IV (23:54)
[2024-06-27] MEDS: DiphenhydrAMINE 50 MG/ML Syringe IV (23:55)
[2024-06-28 00:19] LABS: Anion Gap 5 (5-15); BUN 17 mg/dL (7-18); BUN/Creat Ratio 22.9 RATIO (10-20); Calcium,Total 9.6 mg/dL (8.5-10.1); Chloride 108 mmol/L (98-107); Creatinine, Serum 0.74 mg/dL (0.55-1.02); EST Glomerular Filtration Rate 96 mL/min (>60); Est Glom Filt Rate - Afr Amer 116 mL/min (>60); Estimated Creatinine Clearance 120.62 ml/min; Glucose 102 mg/dL (74-106); Magnesium 2.2 mg/dL (1.6-2.6); Potassium 4.1 mmol/L (3.5-5.1); Sodium Level 140 mmol/L (136-145)
[2024-06-28 00:29] LABS: Absolute Lymphocyte Count 1.29 X10^3/uL (0.83-4.51); Absolute Neutrophil Count 3.9 X10^3/uL (2.0-7.7); Basophil# 0.05 X10^3/uL; Basophil% 0.8 % (0-1); Eosinophils% 7.7 % (0-5); Hematocrit 39.2 % (37-47); Hemoglobin 12.9 g/dL (12.0-15.0); Lymphocyte # 1.29 X10^3/ul (0.83-4.51); Lymphocyte % 19.8 % (19-41); Mean Corp Hgb Conc 32.9 g/dL (32-36); Mean Corpuscular Hgb 29.4 pg (27.0-32.0); Mean Corpuscular Volume 89.3 fL (81-99); Mean Platelet Vol. 10.2 fl (6.2-12.0); Monocyte# 0.69 X10^3/uL; Monocyte% 10.6 % (0-10); NRBC Flagged by Analyzer 0 % (0-5); Neutrophil # 3.86 X10^3/uL (2.7-7.7); Neutrophil % 59.1 % (47-70); Platelet Count 317 K/mm3 (150-450); RBC Distribution Width CV 12.3 % (11.6-14.6); RBC Distribution Width SD 40.2 fl (35.1-43.9); Red Blood Count 4.39 M/mm3 (4.2-5.4); White Blood Count 6.5 K/mm3 (4.4-11.0)
[2024-06-28 01:00] VITALS: BP 129/84; PULSE 84; RESP 17; O2SAT 98
--- NOTE | 2024-06-28 01:41 | EDS_ITS ---
HPI History of Present Illness Chief Complaint: Neuro S/Sx Informant: patient and spouse/S.O. Narrative Narrative: Patient is a 34-year-old female with history of hypertension. She also reports a history of atypical migraine and previous TIA. She states that over the last 3 days she has developed a migraine and with this has noticed some numbness tingling weakness of her left arm and leg. She states there is been no sick symptoms and denies fevers or chills or trauma. She states that she contacted her doctor as her symptoms were persisting and as she has had a TIA in the past was advised to come to the hospital for evaluation [facility] Medical History (Updated 06/28/24 @ 06:[address] Seferino Hugo DO) Pre-eclampsia superimposed on chronic hypertension Pre-eclampsia Lyme disease Hx of intrauterine growth restriction in prior , currently Essential (primary) hypertension IBS (irritable bowel syndrome) TIA (transient ischemic attack) Anxiety Tachycardia Chronic hypertension affecting delivery delivered Multiple fractures IUFD at 20 weeks or more of gestation Osteoporosis POTS (postural orthostatic tachycardia syndrome) Home Medications ?Medication ?Instructions ?Recorded ?Last Taken ?Type pediatric oulkkeir-bose-tjt 1 ea PO DAILY 11/30/23 07:00 History 1 ea labetalol 200 mg tablet 200 mg PO Q12H HTN 10/12/23 11/30/23 07:00 History 300 mg diphenhydramine HCl 25 mg capsule 25 mg PO Q8H PRN amelia jatin 11/30/23 Unknown History (Aler-Cap) aspirin 81 mg capsule 81 mg PO DAILY 06/27/24 Unkn own History Allergy/AdvReac Type Severity Reaction Status Date / Time Sulfa (Sulfonamide Allergy Intermediate Hives Verified 06/27/24 21:37 Antibiotics) latex Allergy Rash Verified 06/27/24 21:37 adhesive tape AdvReac Intermediate Rash Verified 06/27/24 21:37 Family History Father Diabetes Hypertension Dementia Surgical History (Updated 12/10/23 @ 00:02 by Ari Fofana) S/P History of surgery S/P dilation and curettage Social History adopted: No household members: spouse 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 Smoking Status: Never smoker ROS ROS ED Constitutional Constitutional ED: Denies chills or fever(s) Eyes Eyes: Reports other Details: Negative photophobia ; Denies change in vision ENT ENT ED: Denies rhinorrhea or sore throat Cardiovascular Cardiovascular: Denies chest pain, palpitations or racing heartbeat Respiratory/Chest Respiratory/Chest: Denies cough or dyspnea Gastrointestinal Gastrointestinal: Reports nausea; Denies abdominal pain, diarrhea or vomiting Genitourinary Genitourinary ED: Denies dysuria Musculoskeletal Musculoskeletal: Denies neck pain Integumentary Denies rash Neurologic Neurologic: Reports headache(s), paresthesias and weakness Hematologic/Lymphatic Hematologic/Lymphatic: Denies easy bleeding or easy bruising EXAM Physical Exam Const Vital Signs: 06/27/24 21:37 06/27/24 23:46 06/28/24 01:00 Temperature 98.1 F Temperature Source Oral Pulse Rate 97 90 84 Respiratory Rate 18 17 17 Blood Pressure 143/104 H 134/95 H 129/84 H Blood Pressure Mean 117 108 99 Pulse Ox 99 97 98 Oxygen Delivery Method Room Air Room Air Room Air 06/28/24 01:51 Temperature 98.4 F Temperature Source Pulse Rate 70 Respiratory Rate 17 Blood Pressure 122/80 H Blood Pressure Mean 94 Pulse Ox 99 Oxygen Delivery Method Positive well nourished and well developed General Appearance ED: well developed; Negative for pallor HEENT HEENT Narrative: Normocephalic atraumatic No sign of infection noted in the posterior pharynx Eyes PERRL and EOMs intact bilaterally General Eye ED: Negative for scleral icterus Neck supple Neck Narrative: No nuchal rigidity or meningeal signs Resp normal respiratory effort and clear to auscultation bilaterally Cardio regular rate and regular rhythm Rate: other Other Details: Heart is regular rate and rhythm without murmurs rubs or gallops Radial and carotid pulses are equal and symmetric GI normal to inspection, nondistended, normoactive bowel sounds, non-tender, non- distended and no masses Auscultation: normoactive bowel sounds Palpation: soft Extremity normal to inspection Extremity Narrative: No asymmetric edema no pitting edema negative Homans' sign bilaterally Neuro oriented x3 and no sensory deficits noted Neuro Narrative: GCS of 15 Patient received NIH stroke scale score of 2 for faint weakness/drift of the left arm and left leg. She receives 1 point for each. Otherwise there is no slurred speech altered mental status ataxia or change in sensation Sensorium / Orientation: alert Psych mental status grossly normal Skin no rashes or lesions noted General Skin Exam: Negative for jaundice or pallor MDM MDM MDM Narrative Medical decision making narrative: Patient arrived to the ER hypertensive but otherwise with stable vitals. She reported that she developed a headache roughly 3 days ago without trauma or signs of infection and then noticed some weakness in her left arm and leg. The fact that the headache proceeded her symptoms goes against this as an acute CVA as pain with an acute stroke is rare. Patient is most likely experiencing an atypical migraine and does have a history of headaches. In order to ensure there is no signs of stenosis subarachnoid hemorrhage or large vessel occlusion I did elect to perform a CTA of the head and neck. In order to rule out clinically significant electrolyte abnormality such as hypomagnesemia hypokalemia or acute kidney injury basic blood work was ordered as well. Labs revealed no clinically significant findings and CTA also revealed no acute change. After receiving IV fluids Toradol Benadryl and Reglan patient had resolution of her headache and her blood pressure stabilized. Repeat neurologic exam showed resolution of the left arm and leg weakness indicating that the symptoms were related to migraine headache. Therefore with overall negative workup and resolution of symptoms there is no need for further evaluation and she is otherwise safe for discharge History & Record Review Discussion w/independent historian: Patient and Significant other Lab Data Attestation: I reviewed the patient's lab results. Labs: Laboratory Results - last 24 hr 06/27/24 23:57 WBC 6.5 RBC 4.39 Hgb 12.9 Hct 39.2 MCV 89.3 MCH 29.4 MCHC 32.9 RDW Std Deviation 40.2 RDW Coeff of Phylicia 12.3 Plt Count 317 MPV 10.2 Immature Gran % (Auto) 2.000 H Neut % (Auto) 59.1 Lymph % (Auto) 19.8 [place] % (Auto) 10.6 H Eos % (Auto) 7.7 H Baso % (Auto) 0.8 Absolute Neuts (auto) 3.9 Absolute Lymphs (auto) 1.29 Nucleated RBC % 0 Sodium 140 Potassium 4.1 Chloride 108 H Carbon Dioxide 28.0 Anion Gap 5 BUN 17 Creatinine 0.74 Estim Creat Clear Calc 120.62 Est GFR (MDRD) Af Amer 116 Est GFR (MDRD) Non-Af 96 BUN/Creatinine Ratio 22.9 H Glucose 102 Calcium 9.6 Magnesium 2.2 Radiography Diagnostic Testing: Clinical Impression(s) from Imaging Studies Head/Neck CTA 06/27/24 23:37 IMPRESSION: NO ACUTE INTRACRANIAL ABNORMALITY. NEGATIVE FOR HEMODYNAMICALLY SIGNIFICANT STENOSIS. NEGATIVE FOR LARGE VESSEL OCCLUSION. Reading Location: [facility] Discharge Plan Triage Chief Complaint: Neuro S/Sx ED Provider: Seferino Hugo Dx/Rx/DC Orders Clinical Impression: Atypical migraine, Hypertension Instructions: Migraines and Cluster Headaches, Preventing Migraine Headaches ... Prescriptions: No Action pediatric zzrurnoc-bhbs-uup 1 EACH tablet,chewable 1 ea PO DAILY labetalol 200 mg tablet 200 mg PO Q12H diphenhydramine HCl [Aler-Cap] 25 mg capsule 25 mg PO Q8H PRN (Reason: migraines) Rx Instructions: take with reglan aspirin 81 mg capsule 81 mg PO DAILY Stand Alone Forms: ED Work / School Excuse Primary Care Provider: Albertina Encarnacion NP Referrals: Albertina Encarnacion NP, RAILWAY SIGNAL OPERATOR-C [Primary Care Provider] - Print Language: Wolof Disposition Disposition: Home, Self Care Discharge Date/Time: 06/28/24 01:52
[2024-06-28 01:51] VITALS: BP 122/80; PULSE 70; RESP 17; TEMP 36.9; O2SAT 99
== END 2024-06-28 01:52 | disposition home or self-care (01) ==
PROVIDERS: Emergency Provider Emergency Medicine; PCP Nurse Practitioner Family; Visit Provider Emergency Medicine
DX: G43.809 Other migraine, not intractable, without status migrainosus (principal); I10 Essential (primary) hypertension; Z79.899 Other long term (current) drug therapy; Z86.73 Personal history of transient ischemic attack (TIA), and cerebral infarction without residual deficits
CPT/HCPCS: 70496; 70498; 80048; 83735; 85025; 96361; 96374; 96375; 99283; Q9967; A4216

== ENCOUNTER 2025-04-25 05:30 | Outpatient (CLI) | payer OTHER, SELFPAY ==
--- NOTE | 2025-04-12 17:34 | PCM.HP.BLA ---
History and Physical Date of Admission: 04/25/25 HPI: The patient is a 35 year old female presenting for pre-operative visit. She is scheduled for TLH, bilateral salpingectomy and cystoscopy, for adenomyosis, menorrhagia with regular cycle and septate uterus on 04/25/25. Procedure discussed along with risks, benefits and complications. Other alternatives discussed for management. Consent form signed? Yes. ? ? Past Medical History PAST MEDICAL HISTORYDiagnosisDate?Anemia07/2018?Arachnoid cyst??History of intrauterine in previous pregnancy07/01/2023?Hx of preeclampsia, prior , currently ([facility])01/2021?Around 32weeks?Left lower quadrant abdominal pain07/01/2023?Reports random sharp pain to left side. Likely round ligament pain. To notify if persistent or worsening.?Lyme disease??Mesenteric lymphadenitis??POTS (postural orthostatic tachycardia syndrome)??TIA (transient ischemic attack)04/2023?Vaginal bleeding in , first trimester ([facility])07/01/2023?Per OB records, humza gestational hemorrhage: 2.4 cm on dating ultrasound. Reviewed likely the cause of her bleeding and that it likely resolved. Plans for NT scan and will confirm. No further bleeding. ? ? PAST SURGICAL HISTORY PAST SURGICAL HISTORYProcedureLateralityDate? DELIVERY ONLY?02/11/2021? DELIVERY ONLY?11/30/2023?LTCS?D AND C?07/17/2018?FOr retained POC?EXCIS UTERINE FIBROID,VAG APPRCH?07/2018?PORT???Insertion & removal x 2 ? ? ? CURRENT MEDICATIONS Current Outpatient MedicationsMedicationSigDispenseRefill?labetalol (TRANDATE) 100 mg tabletTake 1 tablet by mouth two times a day.60 tablet1?PNV no.95/ferrous fum/folic ac ( ORAL)Take by mouth.???loratadine (CLARITIN) 10 mg tabletTake 1 tablet by mouth once daily as needed (for allergy symptoms.).???No current facility-administered medications for this visit. ? ? ALLERGIES: Adhesive Tape-Silicones; Latex, Natural Rubber; Nifedipine; Adhesive Tape (Rosins); Latex; Sulfa (Sulfonamide Antibiotics); and Venom-Honey Bee ? PERSONAL HISTORY: [Social History] [Social History] Tobacco Use ? Smoking status: Never ? ? Passive exposure: Never ? Smokeless tobacco: Never Vaping Use ? Vaping status: Never Used Substance Use Topics ? Alcohol use: Never ? Drug use: Never ? FAMILY HISTORY: Family History FAMILY HISTORY ProblemRelationAge of Onset?No Known ProblemsMother??HypertensionFather??other (Sloping Brain Syndrome)Father??HypertensionSister??No Known ProblemsSister??Heart AttackMaternal Grandmother??StrokeMaternal [id number]?No Known ProblemsMaternal Grandfather? ? ? REVIEW OF SYMPTOMS: GENERAL: denies fevers or chills ENDOCRINOLOGY: has not been on steroids Cardiology : denies palpitations or chest pain Respiratory: denies SOB or cough Hematology: denies history of prolonged bleeding or easy bruising or VTE Allergy: Denies history of personal or family history of allergy to anesthesia ? PHYSICAL EXAMINATION: ? VITALS: Last menstrual period 12/10/2024, not currently . ? GENERAL: The patient is well nourished, well hydrated in no acute distress. , The patient is oriented to time, place, and person. NECK: Supple. No lynphadenopathy, normal thyroid, no thyromegaly. LUNGS: Clear to auscultation bilaterally. no wheezes, rhonchi or rales HEART: Regular rate and rhythm, Normal heart sounds, and No murmurs or gallops ? Pelvic US 10/26/24 Indication Abnormal uterine bleeding, Dysmenorrhea Impression The uterus is anteverted and measures 86 mm x 42 mm x 66 mm. The uterus is subseptate with a 1.4 mm septum. The right side of the endometrial cavity appears to be underdeveloped with an endometrial thickness of 5 mm when compared to the left side of the endometrial cavity with an endometrial thickness of 7 mm. section niche is visualized. There is a hyperechoic island on the right side measuring 5 mm x 6 mm x 3 mm in addition to myometrial cysts. This is suggestive of adenomyosis. The right ovary measures 38 mm x 12 mm x 13 mm. The left ovary measures 24 mm x 18 mm x 40 mm. There is no free fluid visualized. ? ? IMPRESSION: menorrhagia with regular cycle, adenomyosis, septate uterus ? PLAN: The risks/benefits/alternatives and personal involved for the planned TLH, bilateral salpingectomy and cystoscopy were reviewed with the patient. Her questions were answered to her satisfaction and she desires to proceed. Consent was signed. I reviewed with her postop instructions and expectations. ? ? I have reviewed and updated past medical and surgical history, medications and allergies Assessment & Plan Assessment/Plan (1) Menorrhagia with regular cycle: (2) Adenomyosis: (3) Septate uterus:
--- NOTE | 2025-04-18 13:23 | EKG12_ITS ---
Test Reason : PRE OP Blood Pressure : */* mmHG Vent. Rate : 74 BPM Atrial Rate : 74 BPM P-R Int : 140 ms QRS Dur : 88 ms QT Int : 372 ms P-R-T Axes : 62 72 48 degrees QTcB Int : 412 ms Normal sinus rhythm Normal ECG Confirmed by BRUNILDA MARCELO, DULCE ([id number]), editor managing director GELACIO MONROY ([id number]) on 04/22/2025 6:13:26 AM Referred By: Karen Escudero Confirmed By: DULCE WORLEY MD
[2025-04-18 13:36] LABS: Hematocrit 40.0 % (37-47); Hemoglobin 13.9 g/dL (12.0-15.0); Mean Corp Hgb Conc 34.8 g/dL (32-36); Mean Corpuscular Volume 85.8 fL (81-99); Mean Platelet Vol. 10.3 fl (6.2-12.0); Platelet Count 311 K/mm3 (150-450); RBC Distribution Width CV 12.2 % (11.6-14.6); RBC Distribution Width SD 38.1 fl (35.1-43.9); Red Blood Count 4.66 M/mm3 (4.2-5.4); White Blood Count 8.0 K/mm3 (4.4-11.0)
[2025-04-18 13:45] LABS: Partial Thromboplast Time 27.9 Seconds (24.1-36.2); Prothrombin Time (Protime)PT. 13.0 SECONDS (11.7-14.9)
[2025-04-18 14:12] LABS: AST(SGOT) 20 U/L (<=31); Alanine Aminotransfer ALT/SGPT 42 U/L (<=34); Albumin, Serum 4.7 g/dL (3.5-5.0); Alkaline Phosphatase 41 U/L (35-104); Anion Gap 14 (5-15); BUN 16 mg/dL (4-19); BUN/Creat Ratio 17.4 RATIO (10-20); Bilirubin, Direct 0.16 mg/dL (0.00-0.30); Calcium,Total 9.4 mg/dL (7.6-11.0); Carbon Dioxide 22.1 mmol/L (21.0-32.0); Chloride 104 mmol/L (98-108); Globulin 2.9 g/dL (2.2-4.2); Glucose 105 mg/dL (70-99); Potassium 3.7 mmol/L (3.3-5.1)
--- NOTE | 2025-04-18 20:11 | PAT.ANESEVAL ---
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 When Was Last Pacemaker Check QUESTION #4 FULL TEXT: You/Your Family Experience fever (hyperthermia) with Anesthesia Last Oral Intake Last Oral intake: Last Oral Intake NPO since Meds taken in AM with sips of water? 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 Female Yes 04/11/25 09:13 HX of Motion Sickness No 04/11/25 09:13 HX of N/V After Surgery No 04/11/25 09:13 Non-Smoker Yes 04/11/25 09:13 Duration of Surgery greater Yes 04/11/25 09:13 than 60 minutes Number of Risk Factors 3 04/11/25 09:13 PONV Score Moderate Risk 04/11/25 09:13 Height & Weight Height & Weight: Anesthesia: Height & Weight Height 5 ft 8 in 06/27/24 23:18 Respiratory Assessment Respiratory Assessment - agricultural service worker: Respiratory Tract Infection Hx - agricultural service worker Hx Respiratory Tract Infection No 04/11/25 09:13 STOP Sleep Apnea STOP Sleep Apnea - agricultural service worker: STOP Sleep Apnea - agricultural service worker Hx Hypertension Yes: ON MEDS 04/11/25 09:13 Hx Sleep Apnea No 04/11/25 09:13 CPAP No 07/17/18 13:54 BIPAP Do you snore loudly (louder No 04/11/25 09:13 than talking or can be heard Do you often feel tired/ No 04/11/25 09:13 fatigued/ sleepy during daytime? Has anyone observed you stop No 04/11/25 09:13 breathing during sleep? STOP Results Negative 04/11/25 09:13 QUESTION #5 FULL TEXT : Do you snore loudly (louder than talking or can be heard through closed doors)? 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 Specify any problems Hx of Preganancy in last 3 No 04/11/25 09:13 Months Nurse Filling Out Transfusion JZOLLINGE 04/11/25 09:13 & Questions: Date: 04/11/25 04/11/25 09:13 Time: 09:15 04/11/25 09:13 Patient unable to answer at this time (ie. 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 Karen Escudero MD) Wears glasses Wears contact lenses Excessive bleeding Easy bruising Loss of consciousness Non-smoker History of echocardiogram Cardiology follow-up encounter Pre-eclampsia superimposed on chronic hypertension Pre-eclampsia Lyme disease Hx of intrauterine growth restriction in prior , currently Essential (primary) hypertension IBS (irritable bowel syndrome) TIA (transient ischemic attack) Anxiety Tachycardia Chronic hypertension affecting delivery delivered Multiple fractures IUFD at 20 weeks or more of gestation Osteoporosis POTS (postural orthostatic tachycardia syndrome) Home Medications ?Medication ?Instructions ?Recorded ?Last Taken ?Type pediatric [id number] 1 ea PO DAILY 04/26/19 11/30/23 07:00 History 1 ea labetalol 200 mg tablet 200 mg PO Q12H HTN 10/12/23 11/30/23 07:00 History 300 mg aspirin 81 mg capsule 81 mg PO DAILY 06/27/24 Unknown History Allergy/AdvReac Type Severity Reaction Status Date / Time Sulfa (Sulfonamide Allergy Intermediate Hives Verified 04/11/25 09:03 Antibiotics) latex Allergy Rash Verified 04/11/25 09:03 adhesive tape AdvReac Intermediate Rash Verified 04/11/25 09:03 Family History Father Diabetes Hypertension Dementia Surgical History (Updated 04/11/25 @ 09:13 by Paula Sheridan) Hx of cholecystectomy Hx of colonoscopy S/P History of surgery S/P dilation and curettage Social History adopted: No household members: spouse 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 Sinus rhythm within normal limits. Echo (EF%) pertinent findings: 05/06/2023. EF of 57%. No hemodynamically significant valve disease. Consult pertinent findings: 10/12/2023. Dr. Foley. 1. Tachycardia-patient has history of POTS. Suspect palpitations are related to fluid shifts and changes. Recommend continue medical therapy with maintenance of fluid status. Continue antihypertensive medications. 2. Hypertension?good control. Recommendation Anesthesia Recommendation Anesthesia recommendation: OPTIMIZED for anesthesia
[2025-04-19 09:07] LABS: Magnesium 2.3 mg/dL (1.5-2.2)
--- OUTSIDE RECORDS SUMMARY | 2025-04-25 05:29 | XMS RPT_ITS | CCD ---
Author Organization [facility] Care Team Providers Care Wildlife Management Professor Name Role Phone OTTONIEL ENCARNACION Primary Care Unavailable TRACI INGRAM Attending Unavailable TRACI INGRAM Admitting Unavailable Ottoniel Encarnacion Primary Care Provider [phone] Ottoniel Encarnacion Primary Care Provider Ottoniel Scott Primary Care Provider [phone] SHASHANK CALENDER INSPECTOR-COTTONIEL Consulting Unavailable POORMAN ARBORICULTURIST~[id number], LISSETTEMAN SORAIDA M Attend ing Unavailable POORMAN ARBORICULTURIST~[id number], POORMAN SORAIDA M Admitt ing Unavailable SHASHANK CALENDER INSPECTOR-C~[id number], SHASHANK Aguilar Primary Car e Unavailable OTTONILE ENCARNACION Consulting Unavailable POORMAN ARBORICULTURIST, SORAIDA M Consulting Unavailab le POORMAN ARBORICULTURIST, SORAIDA M Consulting Unavailab le SHASHANK CALENDER INSPECTOR-C~[id number], SHASHANK Aguilar Primary Car e Unavailable ENCINAS DO~[id number], CE IVETT M Admitting Unavailable SHASHANK CALENDER INSPECTOR-COTTONIEL Consulting Unavailable ENCINAS DO~[id number], CE CARRERAILY M Attending Unavailable OTTONIEL ENCARNACION Consulting Unavailable ENCINAS DO, IVETT M Consulting Unavailable ENCINAS DO, IVETT M Consulting Unavailable NONE, NONE Consulting Unavailable NONE, NONE Primary Care Unavailable POORMAN ARBORICULTURIST~[id number], POORMAN SORAIDA M Attend ing Unavailable POORMAN ARBORICULTURIST~[id number], POORMAN SORAIDA M Admitt ing Unavailable NONE, NONE Consulting Unavailable SHASHANK CALENDER INSPECTOR-C~[id number], SHASHANK Aguilar Primary Car e Unavailable ENCINAS DO~[id number], CE ROOT M Attending Unavailable KONSTAN MD, ARAMIS M Consulting Unavailable ENCINAS DO~, ENCINAS IVETT M Admitting Unavailable SELVIN MARCELO, ARAMIS Fernandez Consulting Unavailable SHASHANK CALENDER INSPECTOR-C, OTTONIEL Aguilar Consulting Unavailable OTTONIEL ENCARNACION K Consulting Unavailable ENCINAS DO, IVETT M Consulting Unavailable ENCINAS DO, IVETT M Consulting Unavailable SHASHANK CALENDER INSPECTOR-C, OTTONIEL K Consulting Unavailable JUNE MARCELO, ~[id number] DEVAN Lopez Attending Unavailable JUNE MARCELO, ~[id number] DEVAN Lopez Admitting Unavailable SHASHANK CALENDER INSPECTOR-C~[id number], SHASHANK GARNERA K Primary Car e Unavailable SHASHANK OTTONIEL K Consulting Unavailable JUNE MARCELO, DR DEVAN Lopez Consulting Unavaila cr WATKINS MD, DR DEVAN Lopez Consulting Unavaila cr ESCALANTE MD, PAULA Guzmán Consulting Unavailable AVA MARCELO, PAULA Guzmán Consulting Unavailable Richie [phone], Clint [phone] C onsulting Unavailable DARIO DO~[id number], DARIO LEONID J Admitting Unavailable DARIO DO~[id number], DARIO LEONID J Attending Unavailable SHASHANK CALENDER INSPECTOR-C~[id number], SHASHANK GARNERA K Primary Car e Unavailable RICHIE MARCELO, CLINT Consulting Unavailable SHASHANK CALENDER INSPECTOR-C, OTTONIEL K Consulting Unavailable OTTONIEL ENCARNACION K Consulting Unavailable BILL MARCELO, MILKA Tay Consulting Unavailable BILL MARCELO, MILKA Tay Consulting Unavailable THEODORE MARCELO, TEGAN Mares Consulting Unavailable THEODORE MARCELO, TEGAN Mares Consulting Unavailable DARIO DO, LEONID J Consulting Unavailable DARIO DO, LEONID J Consulting Unavailable NONE, NONE Consulting Unavailable ENCINAS DO~, ENCINAS IVETT M Admitting Unavailable SHASHANK CALENDER INSPECTOR-C~[id number], SHASHANK GARNERA K Primary Car e Unavailable ENCINAS DO~, CE ROOT M Attending Unavailable NONE, NONE Consulting Unavailable ENCINAS DO, IVETT M Consulting Unavailable ENCINAS DO, IVETT M Consulting Unavailable NONE, NONE Consulting Unavailable SHASHANK CALENDER INSPECTOR-C~[id number], SHASHANK GARNERA K Primary Car e Unavailable ENCINAS DO~, ENCINAS IVETT M Admitting Unavailable ENCINAS DO~, ENCINAS IVETT M Attending Unavailable NONE, NONE Consulting Unavailable ENCINAS DO, IVETT M Consulting Unavailable ENCINAS DO, IVETT M Consulting Unavailable NONE, NONE Consulting Unavailable POORMAN ARBORICULTURIST~[id number], LISSETTEGRACIELA BURNHAM M Attend ing Unavailable ABDULKADIR ARBORICULTURIST~[id number], ABDULKADIR BURNHAM M Admitt ing Unavailable SHASHANK CALENDER INSPECTOR-C~[id number], SHASHANK OTTONIEL K Primary Car e Unavailable NONE, NONE Consulting Unavailable ABDULKADIR ARBORICULTURIST, SORAIDA M Consulting Unavailab le ABDULKADIR ARBORICULTURIST, SORAIDA M Consulting Unavailab le Shashank [facility], Ottoniel K Primary Care Provider CONSULT, NEUROLOGY-STROKE ALERT Consulting Unavailable LEONID BISHOP Referring Unavailable JAX ROJAS Attending Unavailable SHASHANK, OTTONIEL K Primary Care Unavailable JEAN GOVEA Attending Unavailable AUDELIAСЕРГЕЙIA Referring Unavailable SHASHANK, OTTONIEL K Primary Care Unavailable SHASHANK, OTTONIEL K Primary Care Unavailable IVETT PALOMO Referring Unavailable SNEHA CARDENAS Attending Unavailable Shashank CHECK WEIGHER, Ottoniel K Primary Care Provider JHON CANTRELL DO Attending Unavailable JHON CANTRELL DO Primary Care Unavailable JHON CANTRELL DO Admitting Unavailable SHASHANK, OTTONIEL Consulting Unavailable PROVIDER, UNKNOWN Consulting Unavailable GEOVANNA AVILEZ Referring Unavailable SHASHANK, OTTONIEL K Primary Care Unavailable GEOVANNA AVILEZ Attending Unavailable SHASHANK, OTTONIEL K Primary Care Unavailable SELF Referring Unavailable SHASHANK, OTTONIEL K Primary Care Unavailable JENIFFER STYLES Attending Unavailable TABBY KRUEGER Attending Unavailable SHASHANK, OTTONIEL K Primary Care Unavailable GEOVANNA AVILEZ Attending Unavailable SHASHANK, OTTONIEL K Primary Care Unavailable JELLY AVILEZICA Referring Unavailable GEOVANNA AVILEZ Attending Unavailable SHASHANK, OTTONIEL K Primary Care Unavailable AVILEZ GEOVANAN Referring Unavailable SHASHANK, OTTONIEL K Primary Care Unavailable Shashank, Ottoniel Primary Care Unavailable Seferino Hugo Attending Unavailable Tabby Krueger Attending Unavailable Shashank, Ottoniel Primary Care Unavailable Allergies Allergy Classification Reported Allergen(s) Allergy Type Date of Onset Reaction(s) Facility Adhesive Tape (3 sources) Adhesive Tape Substance Allergy 9 Rash [facility] Latex (6 sources) Latex Substance Allergy 8 Rash, Hives [facility] NIFEdipine (3 sources) NIFEdipine Drug Allergy 4 Rash [facility] Sulfonamides (antibiotic) (3 sources) Sulfonamides (Antibiotic) Drug Allergy 9 Rash [facility] (20 sources) Latex; Translations: [LATEX] Propensity to adverse reactions to drug (disorder) 9 Rash, Hives [facility] Repository (20 sources) Sulfonamides (Antibiotic); Translations: [SULFA (SULFONAMIDE ANTIBIOTICS)] Propensity to adverse reactions to drug (disorder) 9 [facility] Repository (20 sources) Adhesive Tape-Silicones; Translations: [ADHESIVE TAPE-SILICONES] Drug Allergy 9 [facility] (2 sources) Sulfonamides (Antibiotic) Propensity to adverse reactions to drug 7 Hives [facility] (2 sources) *Adhesive Tape Propensity to adverse reactions 9 [facility] (2 sources) natural latex rubber; Translations: [LATEX, NATURAL RUBBER] Drug allergy (disorder) 8 [facility] Repository (20 sources) Adhesive Tape; Translations: [ADHESIVE TAPE (ROSINS)] Allergy to substance 9 [facility] (20 sources) Latex Drug Allergy 8 Hives, [facility] (20 sources) NIFEdipine; Translations: [NIFEDIPINE] Drug Allergy 4 [facility] (20 sources) Venom-Honey Bee; Translations: [VENOM-HONEY BEE] Drug Allergy 1 Swelling [facility] (1 source) Sulfonamides (Antibiotic) Drug allergy (disorder) [facility] Repository (1 source) Adhesive Tape Drug allergy (disorder) 5 [facility] Repository Medications Current Medications Medication Drug Class(es) Dates Sig (Normalized) Sig (Original) alteplase 2 MG Recon Soln (1 source) Start: 01-12-2019 End: 01-12-2019 alteplase 2 MG Recon Soln Indications: POTS (postural orthostatic tachycardia syndrome) 2 mg by Intracatheter route once for 1 dose. 2 mg 0 01/12/2019 Active amoxicillin 875 mg / clavulanate 125 mg oral tablet (4 sources) Penicillin-class Antibacterial Start: 09-30-2024 End: 10-07-2024 take 1 tablet by mouth twice daily amoxicillin-clavulan ate potassium (AUGMENTIN) 875-125 mg per tablet Indications: Sinobronchitis Take 1 tablet by mouth two times a day for 7 days. 14 tablet 09/30/2024 10/07/2024 Active Start: 07-15-2022 End: 09-14-2023 take 1 tablet by mouth every twelve hours Amoxicillin-Pot Clavulanate Discontinued 1 TABLET PO Q12H 14 July 15, 2022 1:00am July 15, 2022 9:02am Start: 06-05-2022 End: 06-10-2022 take 1 tablet by mouth twice daily amoxicillin-clavulanic acid (AUGMENTIN) 875-125 mg per tablet Take 1 tablet by mouth twice daily for 5 days. 10 tablet 0 06/05/2022 06/10/2022 Active Comment on above: Take 1 tablet by dixie th twice daily for 5 days. aspirin 81 mg delayed release oral tablet (20 sources) Platelet Aggregation Inhibitor, Nonsteroidal Anti-inflammatory Drug Start: 09-14-2023 Aspirin (Johnny Low Dose Aspirin) 81 mg tablet,delayed release (DR/EC) Active 81 MG PO DAILY September 14, 2023 12:00am Start: 04-24-2023 End: 12-02-2023 BABY ASPIRIN ORAL Start: 04-24-2023 BABY ASPIRIN O RAL Start: 04-24-2023 aspirin 81 MG Chew Tab chewable tablet Chew 1 tablet daily. 30 tablet 0 04/24/2023 Active Start: 01-12-2021 End: 02-13-2021 take 81 mg by mouth once daily Aspirin Discontinued 81 MG PO DAILY January 12, 2021 12:00am February 13, 2021 8:15am Ca Phosphate-Cholecalciferol (CALCIUM/VITAMIN D3 GUMMIES PO) (2 sources) take 50 mg by mouth once daily Ca Phosphate-Cholecalciferol (CALCIUM/VITAMIN D3 GUMMIES PO) Take 50 mg by mouth daily. 0 Active COENZYME Q-10 PO (2 sources) COENZYME Q-10 PO take by mouth.. 0 Active labetalol hydrochloride 100 mg oral tablet (20 sources) beta-Adrener gic Toyin Star t: 9- 24 take 1 tablet by mouth twice daily labetalol (TRANDATE) 100 mg tablet Take 1 tablet by mouth two times a day. 60 tablet 1 01/16/2024 Active Start: 12-02-2023 End: 01-16-2024 take 1 tablet by mouth three times daily labetalol (TRANDATE) 300 mg tablet Take 1 tablet by mouth three times a day. 90 tablet 1 12/02/2023 01/16/2024 Discontinued Start: 10-25-2023 End: 12-02-2023 take 3 tablets by mouth three times daily labetalol (TRANDATE) 100 mg tablet Take 3 tablets by mouth three times a day. 0 10/25/2023 12/02/2023 Discontinued Start: 10-11-2023 End: 10-25-2023 take 2 tablets by mouth every eight hours labetalol (TRANDATE) 100 mg tablet Take 2 tablets by mouth every 8 hours. 0 10/11/2023 10/25/2023 Discontinued (Course of therapy completed) Start: 10-11-2023 End: 02-08-2024 take 1 tablet by mouth three times daily labetalol (TRANDATE) 200 mg tablet Indications: Chronic hypertension complicating or reason for care during childbirth Take 1 tablet by mouth three times a day. 90 tablet 3 10/11/2023 10/25/2023 Discontinued (Course of therapy completed) Start: 08-16-2023 End: 11-14-2023 take 2 tablets by mouth twice daily labetalol (TRANDATE) 100 mg tablet Take 2 tablets by mouth two times a day. 360 tablet 0 08/16/2023 10/11/2023 Discontinued (Adjust Sig - Block E-Cancel) Start: 08-02-2023 End: 08-16-2023 take 1 tablet by mouth twice daily labetalol (TRANDATE) 100 mg tablet Take 1 tablet by mouth two times a day. 0 08/02/2023 08/16/2023 Discontinued Start: 04-23-2023 End: 04-24-2023 Labetalol (NORMODYNE) tablet 50 mg Start: 01-16-2021 End: 01-26-2021 take 200 mg by mouth twice daily Labetalol Active 200 MG PO TWICE A DAY January 26, 2021 5:31pm Start: 01-16-2021 End: 01-26-2021 take 200 mg by mouth three times daily Labetalol Active 200 MG PO THREE TIMES A DAY January 26, 2021 4:31pm End: 08-02-2023 take 50 mg by mouth twice daily labetalol HCl (LABETAL OL ORAL) Take 50 mg by mouth two times a day. 0 08/02/2023 Discontinued Comment on above: Take 50 mg by mouth twice daily. Take 50 mg by mouth two times a day. Take 1 tablet by dixie two times a day. Take 2 tablets by mo [facility] two times a day. loratadine 10 mg oral tablet (20 sources) Start: 01-13-20 21 take 1 tablet by mouth once daily as needed loratadine (CLARITIN) 10 mg tablet Take 1 tablet by mouth once daily as needed (for allergy symptoms.). 08/02/2023 Active Comment on above: Take 1 tablet by dixie once daily as needed (for allergy symptoms.). Magnesium (2 sources) Start: 10-05-19 19 take 1 tablet by mouth once daily Magnesium 400 MG Tab Take 1 tablet by mouth daily. 30 tablet 11 10/04/2018 Active Multiple Vitamin (MULTIVITAMIN) Cap (2 sources) Multiple Vitamin (MULTIVITAMIN) Cap take 1 capsule by mouth daily.. 0 Active Multiple Vitamins-Minerals (IMMUNE SUPPORT) Chew Tab (2 sources) Multiple Vitamins-Minerals (IMMUNE SUPPORT) Chew Tab Chew 250 mg daily. 0 Active nadolol 20 mg oral tablet (2 sources) beta-Adrenergic Toyin Start: 05-24-19 18 nadolol 20 MG Tab tablet Take 1/2 tablet daily for three days then 1/2 tablet twice daily for three times then 1/2 tablets three times daily. 45 tablet 3 05/24/2017 Active naproxen 500 mg oral tablet (2 sources) Nonsteroidal Anti-inflammatory Drug Start: 08-11-19 17 naproxen 500 MG Tab take 1 tablet by mouth See admin instructions.. 16 tablet 11 08/10/2016 Active norethindrone 0.35 mg oral tablet (3 sources) Start: 11-06-19 25 take 1 tablet by mouth once daily Norethindrone, Contraceptive, 0.35 mg tablet Take 1 tablet by mouth once daily. 84 tablet 3 11/05/2024 Active oxyCODONE hydrochloride 5 mg oral tablet (8 sources) Opioid Agonist Start: 12-02-19 24 End: 12-07-19 24 take 1 tablet by mouth every eight hours as needed for pain oxyCODONE IR (ROXICODONE) 5 mg immediate release tablet Indications: Postoperative pain Take 1 tablet by mouth every 8 hours as needed for pain for up to 5 days. 7 tablet 0 12/02/2023 12/07/2023 Active Start: 02-13-2021 End: 09-14-2023 take 5 mg by mouth every six hours as needed Oxycodone Discontinued 5 MG PO EVERY 6 HOURS NEEDED 25 09February 13, 2021 September 14, 2023 4:09pm Start: 02-13-2021 End: 09-14-2023 take 1 tablet by mouth every six hours as needed for pain Oxycodone Discontinued 5 MG PO EVERY 6 HOURS NEEDED February 13, 2021 September 14, 2023 4:09pm 1 tab every 6 hours as needed for pain Start: 06-16-2018 End: 06-19-2018 take 5 mg by mouth every six hours as needed Oxycodone Discontinued 5 MG PO EVERY 6 HOURS NEEDED 26 07June 16, 2018 3:16pm June 19, 2018 1:09am Pediatric Aalkozkg-Pukb-Ock (2 sources) Start: 04-26-2019 Pediatric Mult rsmn-Euxo-Qzk Active 1 EACH PO DAILY April 26, 2019 1:00am Start: 04-26-2019 Pediatric Mult eskm-Blbx-Elo Active 1 EACH PO DAILY April 26, 2019 12:00am PNV no.95/ferrous fum/folic ac ( ORAL) (20 sources) PNV no.95/ferrou s fum/folic ac ( ORAL) Take by mouth. Active PNV no.95/ferrou s fum/folic ac ( ORAL) Take by mouth. 0 Active Comment on above: Take by mouth. Vit-Fe Fumarate-FA ( 19) Chew Tab (2 sources) Vit-Fe Fumarate-FA ( 19) Chew Tab Chew. Vitafusion 0 Active prochlorperazine 5 mg oral tablet (2 sources) Phenothiazine Start: 2016 take 1 tablet by mouth every eight hours as needed prochlorperazine 5 MG Tab take 1 tablet by mouth every 8 hours as needed for Other.. 30 tablet 08/10/2016 Active pyridostigmine bromide 60 mg oral tablet (2 sources) Start: 2016 take 1 tablet by mouth three times daily pyridostigmine 60 MG Tab Take 1 tablet by mouth 3 times daily. Spread throughout the day 90 tablet 04/27/2017 Active riboflavin 400 mg oral tablet (2 sources) Start: 2018 take 1 tablet by mouth once daily Riboflavin 400 MG Tab Take 400 mg by mouth daily. 30 tablet 11 10/04/2018 Active 250 ml sodium chloride 9 mg/ml injection (4 sources) Start: 2017 take 1000 mL intravenously two times weekly sodium chloride 0.9%, MB PLUS, 0.9% Solution 1,000 mL by Intravenous route twice a week. 8000 mL 11 05/04/2018 Active Start: 04-28-2018 Sodium Chlorid e Flush (NORMAL SALINE FLUSH) 0.9% Solution 1,000 mL by Intravenous route every 14 days. 6000 mL 3 04/28/2018 Active Completed/Discontinued Medications Medication Drug Class(es) Dates Sig (Normalized) Sig (Original) acetaminophen 325 mg oral tablet (1 source) Start: 04-23-2023 End: 04-24-2023 take 1 tablet by mouth every six hours as needed Acetaminophen (TYLENOL) tablet 650 mg ascorbic acid 250 mg oral tablet (12 sources) Vitamin C End: 08-02-2023 take 1 tablet by mouth once daily ascorbic acid, vitamin C, (VITAMIN C) 250 mg tablet Take 250 mg by mouth once daily. 0 08/02/2023 Discontinued (Other) Ascorbic Acid (V ITAMIN C) 250 MG Chew Tab Chew 250 mg daily. 0 Active Comment on above: Take 250 mg by mouth once daily. cephalexin 500 mg oral capsule (5 sources) Cephalosporin Antibacterial Start: 07-08-2023 End: 08-02-2023 cephALEXin (KEFLEX) 500 mg capsule cholecalciferol, vitamin D3, (VITAMIN D3 ORAL) (3 sources) End: 07-01-2023 cholecalciferol, vitamin D3, (VITAMIN D3 ORAL) Take by mouth once daily. 0 07/01/2023 Discontinued cholecalciferol, vitamin D3, (VITAMIN D3 ORAL) Take by mouth once daily. 0 Active Comment on above: Take by mouth once d aily. cholestyramine resin 4000 mg powder for oral suspension (2 sources) Bile Acid Sequestrant Start: 03-17-2022 End: 07-01-2023 cholestyramine (QUESTRAN) 4 gram packet DISSOLVE ONE PACKET IN BEVERAGE AND DRINK DAILY DIRECTED 0 03/17/2022 07/01/2023 Discontinued (Course of therapy completed) Comment on above: DISSOLVE ONE PACKET IN BEVERAGE AND DRINK DAILY DIRECTED cyanocobalamin, vitamin B-12, (VITAMIN B-12 ORAL) (3 sources) End: 07-01-2023 cyanocobalamin, vitamin B-12, (VITAMIN B-12 ORAL) Take by mouth once daily. 0 07/01/2023 Discontinued cyanocobalamin, vitamin B-12, (VITAMIN B-12 ORAL) Take by mouth once daily. 0 Active Comment on above: Take by mouth once d aily. diphenhydrAMINE hydrochloride 25 mg oral tablet (20 sources) Histamine-1 Receptor Antagonist End: 01-02-20 take 1 tablet by mouth every six hours as needed diphenhydrAMINE (BENADRYL ALLERGY) 25 mg tablet Take 25 mg by mouth every 6 hours as needed. 01/02/2024 Discontinued Ethinyl Estradiol / norgestimate (2 sources) Progestin, Estrogen Start: 04-05-20 End: 07-01-19 take 1 tablet by mouth once daily SPRINTEC 0.25-35 mg-mcg per tablet Take 1 tablet by mouth once daily. 0 04/05/2022 07/01/2023 Discontinued (Course of therapy completed) Start: 04-05-2022 take 1 tablet by dixie th once daily SPRINTEC 0.25-35 mg-mcg per tablet Take 1 tablet by mouth once daily. 0 04/05/2022 Active Comment on above: Take 1 tablet by dixie th once daily. ibuprofen 600 mg oral tablet (4 sources) Nonsteroidal Anti-inflammatory Drug Start: 12-02-19 End: 01-02-20 take 1 tablet by mouth every six hours as needed ibuprofen (MOTRIN) 600 mg tablet Take 1 tablet by mouth every 6 hours as needed for pain. FOR PAIN. 60 tablet 1 12/02/2023 01/02/2024 Discontinued 1 ml ketorolac tromethamine 15 mg/ml cartridge (1 source) Nonsteroidal Anti-inflammatory Drug, Cyclooxygenase Inhibitor Start: 04-24-20 End: 04-24-20 Ketorolac (TORADOL) injection 15 mg LABETALOL-HYDROCHLORO THIAZIDE ORAL (8 sources) Start: 01-07-20 End: 08-02-19 LABETALOL-HYDROCHLOR OTHIAZIDE ORAL Start: 01-06-2021 LABETALOL-HYDR OCHLOROTHIAZIDE ORAL metoclopramide 5 mg oral tablet (20 sources) Dopamine-2 Receptor Antagonist Start: 10-08-2023 End: 01-23-2024 take 1-2 tablets by mouth once daily as needed metoclopramide HCl (REGLAN) 5 mg tablet Indications: Migraine with aura and without status migrainosus, not intractable Take 1-2 tablets by mouth once daily as needed (migraine). 60 tablet 1 10/25/2023 12/02/2023 Discontinued multivitamin tablet (10 sources) End: 08-02-2023 take 1 tablet by mouth once daily multivitamin tablet Take 1 tablet by mouth once daily. 0 08/02/2023 Discontinued (Other) take 1 tablet by mouth once [place] multivitamin tablet Take 1 tablet by mouth once daily. 0 Active Comment on above: Take 1 tablet by dixie th once daily. NIFEdipine 30 mg osmotic 24 hr extended release oral tablet (4 sources) Dihydropyridine Calcium Channel Toyin Start: End: take 1 tablet by mouth once daily NIFEdipine ER (PROCARDIA XL) 30 mg 24 hr tablet Take 1 tablet by mouth once daily. 30 tablet 12/02/2023 01/02/2024 Discontinued ofloxacin 3 mg/ml otic solution (2 sources) Quinolone Antimicrobial Start: End: ofloxacin (FLOXIN) 0.3 % otic solution Use 5 Drops in the right ear once daily. 5 mL 0 06/05/2022 07/01/2023 Discontinued Comment on above: Use 5 Drops in the r ight ear once daily. Ondansetron 4mg/2ml (ZOFRAN) injection 4 mg (1 source) Start: End: take 4 mg intravenously every four hours as needed Ondansetron 4mg/2ml (ZOFRAN) injection 4 mg Problems Active Problems Problem Classification Problem Date Documented Date Episodic/Chronic Cardiac dysrhythmias (20 sources) Postural orthostatic tachycardia syndrome ; Translations: [Postural orthostatic tachycardia syndrome] Onset: 08-10-2016 01-31-2019 Chronic Cardiac dysrhythmias (2 sources) Tachycardia; Translations: [Tachycardia, unspecified] 09-07-2023 Episodic Deficiency and other anemia (2 sources) Iron deficiency anemia due to blood loss; Translations: [Iron deficiency anemia secondary to blood loss (chronic)] Onset: 02-21-2019 02-21-2019 Chronic E Codes: Fall (2 sources) Fall; Translations: [Unspecified fall, initial encounter] 01-15-2021 Episodic Endometriosis (9 sources) Uterine adenomyosis; Translations: [Adenomyosis of uterus] Onset: 10-27-2024 10-27-2024 Chronic Essential hypertension (1 source) Hypertensive disorder; Translations: [Essential (primary) hypertension] 12-05-2023 Chronic Genitourinary congenital anomalies (8 sources) Uterus subseptus; 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] Onset: 10-27-2024 10-27-2024 Chronic Genitourinary symptoms and ill-defined conditions (2 sources) Dysuria; Translations: [Dysuria] 12-09-2023 Episodic Headache; including migraine (4 sources) Migraine with aura; Translations: [Migraine with aura, not intractable, without status migrainosus] Onset: 08-02-2023 08-02-2023 Chronic Headache; including migraine (2 sources) Headache; Translations: [Headache] 01-26-2021 Episodic Headache; including migraine (3 sources) Headache; including migraine; Translations: [HEADACHE UNSPECIFIED] Onset: 04-23-2023 Hypertension complicating ; childbirth and the puerperium (20 sources) Hypertension complicating ; Translations: [Unspecified maternal hypertension, third trimester] Onset: 05-27-2023 Resolved: 12-02-2023 07-01-2023 Chronic Hypertension with complications and secondary hypertension (8 sources) Secondary hypertension; Translations: [Other secondary hypertension] Onset: 10-22-2024 10-22-2024 Chronic Malposition; malpresentation (2 sources) Breech presentation; Translations: [Maternal care for breech presentation, not applicable or unspecified] 02-21-2021 Episodic Menstrual disorders (9 sources) Dysmenorrhea; Translations: [Dysmenorrhea, unspecified] Onset: 10-22-2024 10-22-2024 Chronic Osteoporosis (2 sources) Osteoporosis; Translations: [Age-related osteoporosis without current pathological fracture] 07-17-2018 Chronic Other complications of ; puerperium affecting management of mother (1 source) delivery - delivered; Translations: [Encounter for delivery without indication] Episodic Other complications of ; puerperium affecting management of mother (2 sources) Retained portions of placenta and membranes, without hemorrhage; Translations: [Retained products of conception after delivery without hemorrhage] 01-15-2021 Episodic Other complications of ; puerperium affecting management of mother (2 sources) fetus in utero; Translations: [Maternal care for intrauterine , not applicable or unspecified] 01-15-2021 Episodic Other complications of ; puerperium affecting management of mother (1 source) Deliveries by ; Translations: [Encounter for delivery without indication] 2021 Episodic Other complications of (3 sources) Supervision of high risk , unspecified, first trimester; Translations: [SUP HIGH RISK UNS 1ST TRI] Onset: 05-23-2023 Episodic Other complications of (1 source) Maternal care for other abnormalities of pelvic organs, first trimester; Translations: [MAT CARE OTH ABN PELV ORGAN 1ST TRI] Onset: 05-24-2023 Episodic Other complications of (1 source) Supervision of high risk , unspecified, second trimester; Translations: [Encounter for supervision of high risk in second trimester, antepartum] Onset: 07-13-2023 Episodic Other connective tissue disease (1 source) Muscle weakness (generalized); Translations: [MUSCLE WEAKNESS GENERALIZED] Onset: 04-27-2023 Episodic Other ear and sense organ disorders (1 source) Acute otitis externa of right ear; Translations: [Unspecified acute noninfective otitis externa, right ear] Episodic Other female genital disorders (4 sources) Abnormal uterine and vaginal bleeding, unspecified; Translations: [ABNORMAL UTERINE VAGINAL BLEED UNS] Onset: 03-17-2023 Chronic Other female genital disorders (6 sources) Abnormal uterine bleeding; Translations: [Abnormal uterine and vaginal bleeding, unspecified] 10-22-2024 Chronic Other female genital disorders (1 source) Vaginal discharge; Translations: [Other specified noninflammatory disorders of vagina] 09-14-2023 Episodic Other nervous system disorders (1 source) Arachnoid cyst; Translations: [Cerebral cysts] 04-24-2023 Chronic Other nervous system disorders (1 source) Aphasia; Translations: [APHASIA] Onset: 04-27-2023 Chronic Other nervous system disorders (2 sources) Cerebral cysts; Translations: [Cerebral cysts] Onset: 04-23-2023 Chronic Other nervous system disorders (3 sources) Postoperative pain ; Translations: [Other acute postprocedural pain] 02-13-2021 Episodic Other screening for suspected conditions (not mental disorders or infectious disease) (3 sources) Encounter for screening for growth retardation; Translations: [Patient encounter status] Onset: 05-24-2023 08-16-2023 Episodic Other upper respiratory infections (3 sources) Bacterial sinusitis; Translations: [Chronic sinusitis, unspecified] Onset: 09-30-2024 Chronic Other upper respiratory infections (1 source) Acute sinusitis; Translations: [Acute sinusitis, unspecified] 07-15-2022 Episodic Ovarian cyst (1 source) Corpus luteum cyst of left ovary; Translations: [CORPUS LUTEUM CYST OF LEFT OVARY] Onset: 05-24-2023 Episodic Residual codes; unclassified (3 sources) Gestation period, 24 weeks; Translations: [24 weeks gestation of ] 01-15-2021 Episodic Residual codes; unclassified (3 sources) Gestation period, 23 weeks; Translations: [23 weeks gestation of ] 09-07-2023 Episodic Residual codes; unclassified (2 sources) Gestation period, 37 weeks; Translations: [37 weeks gestation of ] 02-21-2021 Episodic Residual codes; unclassified (1 source) Less than 8 weeks gestation of ; Translations: [< 8 WEEKS GESTATION ] Onset: 05-24-2023 Episodic Residual codes; unclassified (2 sources) Gestation period, 13 weeks; Translations: [13 weeks gestation of ] 07-01-2023 Episodic Residual codes; unclassified (1 source) Gestation period, 15 weeks; Translations: [15 weeks gestation of ] 07-13-2023 Episodic Residual codes; unclassified (1 source) Gestation period, 17 weeks; Translations: [17 weeks gestation of ] 07-25-2023 Episodic Residual codes; unclassified (1 source) 13 weeks gestation of ; Translations: [13 weeks gestation of ] Onset: 08-02-2023 Episodic Residual codes; unclassified (2 sources) Gestation period, 20 weeks; Translations: [20 weeks gestation of ] 08-16-2023 Episodic Residual codes; unclassified (1 source) Gestation period, 28 weeks; Translations: [28 weeks gestation of ] 10-11-2023 Episodic Residual codes; unclassified (3 sources) Gestation period, 29 weeks; Translations: [29 weeks gestation of ] 10-18-2023 Episodic Residual codes; unclassified (2 sources) Gestation period, 30 weeks; Translations: [30 weeks gestation of ] 10-25-2023 Episodic Residual codes; unclassified (2 sources) Gestation period, 31 weeks; Translations: [31 weeks gestation of ] 11-01-2023 Episodic Residual codes; unclassified (2 sources) Gestation period, 32 weeks; Translations: [32 weeks gestation of ] 11-07-2023 Episodic Residual codes; unclassified (3 sources) Gestation period, 33 weeks; Translations: [33 weeks gestation of ] 11-15-2023 Episodic Residual codes; unclassified (3 sources) Gestation period, 34 weeks; Translations: [34 weeks gestation of ] 11-21-2023 Episodic Residual codes; unclassified (2 sources) Gestation period, 35 weeks; Translations: [35 weeks gestation of ] 11-28-2023 Episodic Syncope (2 sources) Syncope; Translations: [Syncope and collapse] 11-01-2018 Episodic Transient cerebral ischemia (20 sources) Transient cerebral ischemia; Translations: [Transient cerebral ischemic attack, unspecified] Onset: 05-06-2023 04-24-2023 Chronic Unclassified (1 source) Adenomyosis of uterus; Translations: [Adenomyosis of uterus] Onset: 10-27-2024 Past or Other Problems Problem Classification Problem Date Documented Date Episodic/Chronic Abdominal pain (20 sources) Left flank pain; Translations: [Unspecified abdominal pain] Onset: 07-01-2023 Resolved: 07-13-2023 07-01-2023 Episodic Chronic obstructive pulmonary disease and bronchiectasis (1 source) Bronchitis, not specified as acute or chronic; Translations: [Sinobronchitis] Onset: 09-30-2024 Episodic Deficiency and other anemia (2 sources) Iron deficiency anemia secondary to inadequate dietary iron intake; Translations: [Other iron deficiency anemias] Onset: 02-21-2019 02-21-2019 Episodic Hemorrhage during ; abruptio placenta; placenta previa (20 sources) Threatened miscarriage; Translations: [Threatened ] Onset: 05-24-2023 Resolved: 07-13-2023 Episodic Hypertension complicating ; childbirth and the puerperium (13 sources) Pre-eclampsia; Translations: [Unspecified pre-eclampsia, complicating childbirth] Onset: 12-02-2023 12-02-2023 Episodic Immunizations and screening for infectious disease (2 sources) Vaccination needed; Translations: [Encounter for immunization] Onset: 10-22-2024 10-11-2023 Episodic Other complications of (20 sources) High risk ; Translations: [Supervision of high risk , unspecified, second trimester] Onset: 07-01-2023 Resolved: 12-02-2023 07-01-2023 Episodic Other complications of (20 sources) Nausea and vomiting; Translations: [Vomiting of , unspecified] Onset: 07-01-2023 07-01-2023 Episodic Other complications of (17 sources) Vomiting of , unspecified; Translations: [Unspecified vomiting of , unspecified as to episode of care or not applicable] Onset: 07-01-2023 Resolved: 12-02-2023 12-02-2023 Episodic Other connective tissue disease (1 source) Other symptoms and signs involving the musculoskeletal system; Translations: [Other symptoms and signs involving the musculoskeletal system] Onset: 07-11-2024 Episodic Other nervous system disorders (20 sources) H/O: migraine; Translations: [Personal history of other diseases of the nervous system and sense organs] Onset: 07-01-2023 Resolved: 12-02-2023 07-01-2023 Episodic Other and delivery including normal (20 sources) Vaginal delivery; Translations: [Encounter for full-term uncomplicated delivery] Onset: 05-23-2023 Resolved: 12-02-2023 Episodic Residual codes; unclassified (20 sources) History of intrauterine ; Translations: [Personal history of other complications of , childbirth and the puerperium] Onset: 07-01-2023 Resolved: 12-02-2023 07-01-2023 Episodic Residual codes; unclassified (20 sources) History of pre-eclampsia; Translations: [Personal history of other complications of , childbirth and the puerperium] Onset: 07-01-2023 Resolved: 07-26-2024 02-23-2024 Episodic Results Test Name Value Interpretation Reference Range Facil ity CNOVon 02-07-2025 CNOV Office Visit (OBGYWM) CLARISA DE LA CRUZ ([id number]) 1990 F Date Time Provider Department 02/07/25 11:10 AM TABBY KRUEGER OBGYWM During your visit today, we recorded the following information about you: Blood pressure Weight 120/68 86.2 kg Tabby Krueger MD 02/07/2025 1:05 PM Signed Obstetrics and Gynecology [place] SAND CASTER APPRENTICE Visit Subjective Recording using Guzu software for draft documentation of the visit was discussed with the patient/authorized floor representative; all questions welcomed and answered. Patient/authorized floor representative agreed to proceed CHIEF COMPLAINT: The patient is a 34-year-old female with POTS and history of TIAs, presenting for management of menorrhagia and surgical planning for hysterectomy. HPI: The patient is a 34-year-old female with a history of heavy menstrual bleeding, POTS, and TIAs presenting for evaluation of persistent menorrhagia and dysmenorrhea. Menstrual History - Reports menorrhagia and dysmenorrhea since resuming menstruation post-. - Describes menstrual flow as so, so heavy and super painful, with bleeding lasting almost the entire month and only 2-3 days of respite. - On the heaviest days, requires changing protection every hour to hour and a half. - Notes that periods have been absolutely crazy since the of her last child. - No history of hemorrhaging or blood transfusions [id number]; was anemic after the first and received iron infusions. -H/o POTS and says mense have always been bad but this is worse Contraception History - Currently not planning to have more children. - Previously used norethindrone (progesterone-only control) without improvement in menstrual symptoms. - Recently switched to norethindrone Aygestin at the beginning of the month to control bleeding, but reports worsening symptoms, including gushing blood and large clots, necessitating protection changes every hour to hour and a half. - Discontinued Aygestin one week ago, resulting in increased bleeding. - Previously used estrogen-containing control pills before the loss of her first , which provided better control of menstrual bleeding. - Did not use contraception between pregnancies. notes + history TIA< no h/o VTE Obstetric History - Reports a uterine septum noted on US and during - Denies any history of hemorrhaging or blood transfusions [id number]; was anemic after the first and received iron infusions. Past Diagnostic Results - Pelvic ultrasound (October): Revealed a uterine septum; adenomyosis and ovaries appeared normal. - Endometrial biopsy: Normal. - Pap smears: Normal, with the most recent one performed last year. Current Medications and Supplements - Iron supplements. - vitamins. HISTORY: OB History Gravida4 Para3 Term1 Preterm2 AB0 Living2 SAB0 IAB0 Ectopic0 Multiple0 Live Births2 Spindle Plumber History LMP: 12/10/2024 (Exact Date), Having periods Age at Menarche: Age at First : Age at Menopause: Spindle Plumber History Comments: Sexual Activity: Yes; Male Contraception: No contraception data on record PAST MEDICAL HISTORY Diagnosis Date Anemia 07/2018 Arachnoid cyst History of intrauterine in previous 07/01/2023 Hx of preeclampsia, prior , currently ([facility]) 01/2021 Around 32weeks Left lower quadrant abdominal pain 07/01/2023 Reports random sharp pain to left side. Likely round ligament pain. To notify if persistent or worsening. Lyme disease Mesenteric lymphadenitis POTS (postural orthostatic tachycardia syndrome) TIA (transient ischemic attack) 04/2023 Vaginal bleeding in , first trimester ([facility]) 07/01/2023 Per OB records, humza gestational hemorrhage: 2.4 cm on dating ultrasound. Reviewed likely the cause of her bleeding and that it likely resolved. Plans for NT scan and will confirm. No further bleeding. PAST SURGICAL HISTORY Procedure Laterality Date DELIVERY ONLY 2021 DELIVERY ONLY 11/30/2023 LTCS D AND C 07/17/2018 FOr retained POC EXCIS UTERINE FIBROID,VAG APPRCH 07/2018 PORT Insertion AND removal x 2 FAMILY HISTORY Problem Relation Age of Onset No Known Problems Mother Hypertension Father other (Sloping Brain Syndrome) Father Hypertension Sister No Known Problems Sister Heart Attack Maternal Grandmother Stroke Maternal Grandmother 63 No Known Problems Maternal Grandfather SOCIAL HISTORY[1] Current Outpatient Medications Medication Sig labetalol (TRANDATE) 100 mg tablet Take 1 tablet by mouth two times a day. PNV no.95/ferrous fum/folic ac ( ORAL) Take by mouth. loratadine (CLARITIN) 10 mg tablet Take 1 tablet by mouth once daily as needed (for allergy symptoms.). norethindrone (AYGESTIN) 5 mg tablet 1 tab 3x/day until (more content not included)... Normal [facility] CNOVon 01-08-2025 CNOV Office Visit (OBGYWM) JONO,CLARISA John ([id number]) 1990 F Date Time Provider Department 01/08/25 1:50 PM GEOVANNA AVILEZ OBGYWM During your visit today, we recorded the following information about you: Blood pressure Weight Last Period 124/80 85.7 kg 12/10/24 Geovanna Avilez APRN.CNM 01/08/2025 3:57 PM Signed Side Door Worker offered: Patient declinesCha Mjaor is a 34 year old Female who presents today for an endometrial biopsy for abnormal uterine bleeding, irregular menses, adenomyosis of uterus. test: negative UNIVERSAL PROTOCOL / SAFETY CHECKLIST Procedure to be Performed: Endometrial Biopsy Sign In: A Moment of CARE was completed. Appropriate PPE (Personal Protective Equipment) worn by all providers involved with the procedure. Special equipment not required. Patient/Surrogate Stated/Verified: Patient name, Date of , Relevant allergies, and The intended procedure Time Out: Relevant labs, photos, and/or imaging studies have been reviewed. Intended patient and procedure match the source document(s) (e.g. consent, HANDP, associated studies [imaging, pathology]) match the intended patient and procedure. Consent obtained and matches the intended procedure. Yes. Correct side/site is not applicable. Medications required for this procedure are verified. Fire risk assessed and is not applicable. Implants: are not applicable. Sign Out: Specimens are all correctly labeled and sent. All instruments, equipment, possible retained foreign bodies are accounted for. Yes. The post-procedure plan of care has been communicated to the patient or surrogate. PROCEDURE: EXTERNAL GENITALIA: Normal in appearance without lesions VAGINA: Normal in appearance without lesions BIOPSY: Speculum placed into the vagina with excellent visualization of the cervix. Cervix cleaned with betadine. Anterior lip of cervix grasped with single toothed tenaculum. Uterus sounded to 8 cm. Pipelle inserted into the uterus without difficulty and endometrial biopsy obtained. Specimen labeled and sent to pathology. Hemostasis achieved. Procedure Summary: Patient tolerated procedure well. ASSESSMENT: abnormal uterine bleeding PLAN: Specimens labeled and sent to Pathology. Will notify patient of results in 1-2 weeks. Follow up in 2 weeks to discuss results. Discussed option for aygestin taper vs continuing micronor. Also reviewed IUD and declines at this time. Will await results and then discuss further. Geovanna Avilez APRN.Saadia Bustillo MA 01/08/2025 1:44 PM Signed Post-Procedure Instructions Endometrial Biopsy Instructions: You may experience irregular bleeding / spotting for up to a week after this procedure. Use a panty liner or pad instead of tampons for about one week. Avoid vaginal intercourse or putting anything in your vagina for about one week. Pain Control / Medications: Take 600 mg of ibuprofen (Advil, Motrin, etc.) or 1000 mg of acetaminophen (Tylenol) every 6 hours as needed for pain Do not take more than 2400 mg of ibuprofen or 4000 mg of acetaminophen in any 24 hour period You can also put a heating pad on your abdomen to help with pain. Call your provider's office if you: Have a fever greater than 100.4? F (38.0? C) Have very heavy bleeding (soaking 1 large pad an hour for 2 hours in a row) Prolonged vaginal bleeding for > 7 days following your procedure Have severe cramps that do not go away after you take ibuprofen or acetaminophen Have foul smelling vaginal discharge Follow-Up: Your specific follow up plan will depend on the results of the biopsy. Most biopsy results are available in 3 to 5 business days via uMentionedt, unless a different method of communication was discussed today with your provider. Referring Provider: GEOVANNA AVILEZ [[id number]] Allergies As of Date: 01/08/2025 Noted Allergy Reaction ADHESIVE TAPE-SILICONES 02/27/2019 2 - Rash Comments: Tegaderm dressing LATEX, NATURAL RUBBER 04/04/2018 4 - Hives 2 - Rash NIFEDIPINE 10/11/2023 2 - Rash ADHESIVE TAPE (ROSINS) 02/16/2019 2 - Rash Comments: Tegaderm LATEX 02/20/2019 2 - Rash SULFA (SULFONAMIDE ANTIBIOTICS) 02/20/2019 2 - Rash VENOM-HONEY BEE 12/03/2020 7 - Swelling Date Reviewed: 01/08/2025 Reviewed by: Saadia Calix MA - Fully Assessed Reason for Visit: Endometrial Biopsy [7501] Primary Visit Diagnosis:Abnormal uterine bleeding (AUB) [N93.9] Other Visit Diagnoses:Adenomyosi s of uterus [N80.03] Irregular menstruation [N92.6] Order(s):SURGICAL PATHOLOGY [SQR2870] Order #: [id number]. #:[id number] UA DIP,URINE HCG (POC) [[id number]] Order #: [id number]. #:[id number] Prescriptions as of 01/08/2025 - Norethindrone, Contraceptive, 0.35 mg tablet Take 1 tablet by mouth once daily. - labetalol (TRANDATE) 100 mg tablet Take 1 tablet by mouth two times a day. (more content not included)... Normal [facility] Pathology biopsy report Xander (Tiss)on 01-08-2025 AP DISCLAIMER Normal [facility] Comment on above: Order Comment: Speci men Type: TISSUE SPECIMEN Ordering Facility: [facility] Address: [address] [place] [address] Result Comment: Adeline salas Developed Test (LDT) Disclaimer: Performance characteristics of immunohistochemical, immunofluorescent, and chromogenic in-situ hybridization tests have been determined by the performing laboratory within the [facility] Department of Pathology and Laboratory Medicine ([facility], [facility], [facility], [facility], [facility], [facility], or [facility]) in a manner consistent with CLIA requirements. One or more of these tests may not have been cleared or approved by the FDA. The [facility] Department of Pathology and Laboratory Medicine is regulated under CLIA as qualified to perform high-complexity testing. These tests are used for clinical purposes. These should not be regarded as investigational or for research. Positive and negative controls stain appropriately. Performed By: #### 6 6121-5 #### [facility] CLIA [id number] [address] [place] [address] [place] CASE REPORT Normal [facility] Comment on above: Order Comment: Speci men Type: TISSUE SPECIMEN Ordering Facility: [facility] Address: [address] [place] [address] Result Comment: Surg [facility] Pathology Report Case: [id number] Authorizing Provider: Geovanna Avilez APRN.CNM Collected: 01/08/2025 02:17 PM Ordering Location: OB/Gynecology Received: 01/08/2025 04:33 PM Pathologist: Kirsten Elias MD Specimen: Endometrium, Biopsy Performed By: #### 6 6121-5 #### [facility] CLIA [id number] [address] [place] [address] [place] CLINICAL HISTORY Adenomyosis of Uterus and Irregular Menses Normal [facility] Comment on above: Order Comment: Speci men Type: TISSUE SPECIMEN Ordering Facility: [facility] Address: [address] [place] [address] Performed By: #### 6 6121-5 #### [facility] CLIA [id number] [address] [place] [address] [place] FINAL DIAGNOSIS Normal [facility] Comment on above: Order Comment: Speci men Type: TISSUE SPECIMEN Ordering Facility: [facility] Address: [address] [place] [address] Result Comment: Endo metrium, biopsy: - Mid-to-late secretory pattern endometrium. at 1223 EDT Performed By: #### 6 6121-5 #### [facility] CLIA [id number] [address] [place] [address] [place] FINAL PERFORMING LAB Normal [facility] Comment on above: Order Comment: Speci men Type: TISSUE SPECIMEN Ordering Facility: [facility] Address: [address] [place] [address] Result Comment: Diag nostic interpretation performed at: [facility], [address] [place] [address] CLIA# [id number] [employer] Manager: Aroldo Vasquez MD Performed By: #### 6 6121-5 #### [facility] CLIA [id number] [address] [place] [address] [place] GROSS DESCRIPTION Normal [facility] Comment on above: Order Comment: Speci men Type: TISSUE SPECIMEN Ordering Facility: [facility] Address: [address] [place] [address] Result Comment: A. E ndometrium, Biopsy Received in formalin are multiple pisano-pink, soft feathery segments of tissue admixed with gelatinous material aggregating to 2.5 x 2.3 x 0.4 cm. Totally submitted in one cassette. [facility] January 08, 2025 8:20 PM Gross examination performed at [facility], [address] [place] [address] Performed By: #### 6 6121-5 #### [facility] CLIA [id number] [address] [place] [address] [place] UA DIP,URINE HCG (POC)on Beta HCG ( test) Ql (U) Negative Negative [facility] V Block Saw Operator (POCT) Internal QC OK [facility] Location:[facility], [address], [place], [address] [facility] POINT OF CARE [facility] Franko 12-25-2024 WILDERN Telephone (OBGYWM) CLARISA DE LA CRUZ ([id number]) 1990 F Date Time Provider Department 12/25/24 GEOVANNA AVILEZ During your visit today, we recorded the following information about you: Batool Rogel RN 12/25/2024 3:59 PM Signed Patient calling in c/o prolonged heavy bleeding still. Has been taking norethindrone daily at the same time each day for almost two months and she is still bleeding more days of the month than not. States when bleeding stops it only does for a day or two. Bleeding is heavy with clots, going through tampon onto pad and needing to change about every 1-2 hours. No chest pain, shortness of breath, dizziness at this time. Is feeling fatigued. Please advise. JUAN Garcia Jessica, APRN.CNM 12/25/2024 4:12 PM Signed Can she schedule for an endometrial biopsy and can discuss further. Thank you, VANESSA Bañuelos Trisha, RN 12/25/2024 4:21 PM Signed How soon should she get EMB? You have no available improvement coordinator slots until 01/15 for 15 min slot only. JUAN Garcia Jessica, APRN.CNM 12/25/2024 4:38 PM Signed 01/08 at 1:50? Can add it or just put it in a spot VANESSA Bañuelos Trisha, RN 12/25/2024 4:43 PM Signed Patient notified and scheduled for 01/08 with KIERSTEN. Batool Rogel RN Allergies As of Date: 12/25/2024 Noted Allergy Reaction ADHESIVE TAPE-SILICONES 02/27/2019 2 - Rash Comments: Tegaderm dressing LATEX, NATURAL RUBBER 04/04/2018 4 - Hives 2 - Rash NIFEDIPINE 10/11/2023 2 - Rash ADHESIVE TAPE (ROSINS) 02/16/2019 2 - Rash Comments: Tegaderm LATEX 02/20/2019 2 - Rash SULFA (SULFONAMIDE ANTIBIOTICS) 02/20/2019 2 - Rash VENOM-HONEY BEE 12/03/2020 7 - Swelling Date Reviewed: 10/27/2024 Reviewed by: Kaylynn Loomis MD - Fully Assessed Reason for Visit: Heavy Bleeding [Other] Primary Visit Diagnosis:Abnormal uterine bleeding (AUB) [N93.9] Order(s):ENDOMETRIAL BIOPSY [[id number]] Order #: [id number] Prescriptions as of 12/25/2024 - Norethindrone, Contraceptive, 0.35 mg tablet Take 1 tablet by mouth once daily. - labetalol (TRANDATE) 100 mg tablet Take 1 tablet by mouth two times a day. - PNV no.95/ferrous fum/folic ac ( ORAL) Take by mouth. - loratadine (CLARITIN) 10 mg tablet Take 1 tablet by mouth once daily as needed (for allergy symptoms.). Problem List As Of Date 12/25/2024 Noted Resolved Encounter for supervision of high risk pregnanc*07/01/2023 12/02/2023 Chronic hypertension affecting [O10.9*07/01/2023 12/02/2023 History of intrauterine in previous*07/01/2023 12/02/2023 History of migraine [Z86.69] 07/01/2023 12/02/2023 History of section [Z98.891] 07/01/2023 12/02/2023 History of pre-eclampsia [Z87.59] 07/01/2023 12/02/2023 TIA (transient ischemic attack) [G45.9] 07/01/2023 Vaginal bleeding in , first trimester *07/01/2023 07/13/2023 Nausea/vomiting in [O21.9] 07/01/2023 12/02/2023 POTS (postural orthostatic tachycardia syndrome*07/01/2023 Left lower quadrant abdominal pain [R10.32] 07/01/2023 07/13/2023 with care elsewhere in [facility]*07/01/2023 12/02/2023 History of pre-eclampsia [Z87.59] 12/02/2023 Other secondary hypertension [I15.8] 10/22/2024 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 The uterus is subseptate with a 1.4 mm septum. The right side of the endometrial cavity appears to be underdeveloped with an endometrial thickness of 5 mm when compared to the left side of the endometrial cavity with an endometrial thickness of 7 mm. section niche is visualized. There is a hyperechoic island on the right side measuring 5 mm x 6 mm x 3 mm in addition to myometrial cysts. This is suggestive of adenomyosis. The right ovary measures 38 mm x 12 mm x 13 mm. The left ovary measures 24 mm x 18 mm x 40 mm. There is no free fluid visualized. Recommendations 1. Subseptate uterus with underdeveloped right side. 2. Ultrasound suggestive of focal adenomyosis. Clinical correlation. History Medical History Surgery: section x2 Menstrual History LMP on 10/25/2024 Method Transabdominal, transvaginal, 3D ultrasound examination, Color Doppler examination. View: Adequate visualization Uterus Uterus: Visualized Uterus position: anteverted Description of uterine malformations: septate Myometrium: heterogeneous, hyperechoic area noted superior to the right endo measuring 5 mm x 6 mm x 3 mm Endometrium: normal Cervix details: normal Uterus length 86 mm Uterus width 66 mm Uterus height 42 mm Uterus Vol 125.8 cm Endometrial thickness single layer 5.0 mm Endom. th. single layer 7.0 mm Side: right Side: left Fibroids: No fibroids identified Polyps: No polyps identified Right Ovary Rt ovary: Visualized Rt ovary morphology: premenopausal normal follicular Rt ovary D1 38 mm Rt ovary D2 12 mm Rt ovary D3 13 mm Rt ovary Vol 3.2 cm Left Ovary Lt ovary: Visualized Lt ovary morphology: premenopausal normal follicular Lt ovary D1 24 mm Lt ovary D2 18 mm Lt ovary D3 40 mm Lt ovary Vol 8.9 cm Lt ovarian corpus luteum: cystic with fine diffuse internal echoes Lt ovarian corpus luteum D1 10.0 mm Lt ovarian corpus luteum D2 8.9 mm Lt ovarian corpus luteum D3 10.6 mm Cul de Sac Visualized. no free fluid visualized Procedure To characterize the mullerian anomaly, three dimensional imaging was created on a dedicated stand-alone 3D workstation with images created and archived, and supervised and reviewed by the interpreting physician utilizing images from an ultrasound scan performed today. Performed By: Lori Lopez RDMS Read By: Kaylynn Loomis M.D. MATERNAL MEDICINE [facility] US Pelvison 10-26-2024 Radiology Study observation (narrative) [facility] CBC W Auto Differential pane l (Bld)on 10-22-2024 Basophils (Bld) [#/Vol] 0.05 10*3/uL BANNERF [facility] Basophils/100 WBC (Bld) 0.6 % [facility] Differential cell count method Nom (Bld) Auto [facility] Eosinophils (Bld) [#/Vol] 0.5 10*3/uL High [facility] Eosinophils/100 WBC (Bld) 6.5 % [facility] Erythrocyte distribution width (RBC) [Ratio] 12.6 % 11.5 - 15.0 % [facility] Hematocrit (Bld) [Volume fraction] 39.3 % 36.0 - 46.0 % [facility] Hemoglobin (Bld) [Mass/Vol] 13.1 g/dL 11.5 - 15.5 g/dL [facility] Immature granulocytes (Bld) [#/Vol] BANNERF [facility] Immature granulocytes/100 WBC (Bld) 0.3 % [facility] Interpretation and review of laboratory results Abnormal [facility] Lymphocytes (Bld) [#/Vol] 1.81 10*3/uL [facility] Lymphocytes/100 WBC (Bld) 23.5 % [facility] MCH (RBC) [Entitic mass] 29.1 pg 26.0 - 34.0 pg [facility] MCHC (RBC) [Mass/Vol] 33.3 g/dL 30.5 - 36.0 g/dL [facility] MCV (RBC) [Entitic vol] 87.3 fL 80.0 - 100.0 fL [facility] Monocytes (Bld) [#/Vol] 0.62 10*3/uL [facility]AN[facility]F [facility] Monocytes/100 WBC (Bld) 8 % [facility] Neutrophils (Bld) [#/Vol] 4.71 10*3/uL [facility] Neutrophils/100 WBC (Bld) 61.1 % [facility] Nucleated RBC (Bld) [#/Vol] NINF [facility] Nucleated RBC/100 WBC (Bld) [Ratio] 0 % /100 WBC [facility] Platelet mean volume (Bld) [Entitic vol] 10.2 fL 9.0 - 12.7 fL [facility] Platelets (Bld) [#/Vol] 304 10*3/uL [facility] RBC (Bld) [#/Vol] 4.5 10*6/uL 3.90 - 5.2 0 m/uL [facility] WBC (Bld) [#/Vol] 7.71 10*3/uL [facility] Basophils (Bld) [#/Vol] 0.05 10*3/uL Normal <0.11 [facility] Comment on above: Order Comment: Speci men Type: BLOOD SPECIMENOrdering Facility: [facility] Address: [address] [place] [address] Performed By: #### 5 7021-8 ####[facility] [id number] [address] [place] Basophils/100 WBC (Bld) 0.6 % Normal [facility] Comment on above: Order Comment: Speci men Type: BLOOD SPECIMENOrdering Facility: [facility] Address: [address] [place] [address] Performed By: #### 5 7021-8 ####[facility] [id number] [place] [address] [place] Differential cell count method Nom (Bld) Auto Normal [facility] Comment on above: Order Comment: Speci men Type: BLOOD SPECIMENOrdering Facility: [facility] Address: [address] [place] [address] Performed By: #### 5 7021-8 ####[facility] [id number] [place] [address] [place] Eosinophils (Bld) [#/Vol] 0.50 10*3/uL High <0.46 [facility] Comment on above: Order Comment: Speci men Type: BLOOD SPECIMENOrdering Facility: [facility] Address: [address] [place] [address] Performed By: #### 5 7021-8 ####[facility] TANMAY [id number] [place] [address] [place] Eosinophils/100 WBC (Bld) 6.5 % Normal [facility] Comment on above: Order Comment: Speci men Type: BLOOD SPECIMENOrdering Facility: [facility] Address: [address] [place] [address] Performed By: #### 5 7021-8 ####[facility] FRANSISCOSTERLINGTONHERMINIA [id number] [place] [address] [place] Erythrocyte distribution width (RBC) [Ratio] 12.6 % Normal 11.5-15.0 [facility] Comment on above: Order Comment: Speci men Type: BLOOD SPECIMENOrdering Facility: [facility] Address: [address] [place] [address] Performed By: #### 5 7021-8 ####[facility] SOUTHZANEA [id number] [place] [address] [place] Hematocrit (Bld) [Volume fraction] 39.3 % Normal 36.0-46.0 [facility] Comment on above: Order Comment: Speci men Type: BLOOD SPECIMENOrdering Facility: [facility] Address: [address] [place] [address] Performed By: #### 5 7021-8 ####[facility] SOUTHMIKALIA [id number] [place] [address] [place] Hemoglobin (Bld) [Mass/Vol] 13.1 g/dL Normal 11.5-15.5 [facility] Comment on above: Order Comment: Speci men Type: BLOOD SPECIMENOrdering Facility: [facility] Address: [address] [place] [address] Performed By: #### 5 7021-8 ####[facility] MILLWNCLIA [id number] [place] [address] [place] Immature granulocytes (Bld) [#/Vol] 10*3/uL Normal <0.10 [facility] Comment on above: Order Comment: Speci men Type: BLOOD SPECIMENOrdering Facility: [facility] Address: [address] [place] [address] Performed By: #### 5 7021-8 ####[facility]ENTERLIA [id number] [place] [address] [place] Immature granulocytes/100 WBC (Bld) 0.3 % Normal [facility] Comment on above: Order Comment: Speci men Type: BLOOD SPECIMENOrdering Facility: [facility] Address: [address] [place] [address] Performed By: #### 5 7021-8 ####[facility] [id number] [place] [address] [place] Lymphocytes (Bld) [#/Vol] 1.81 10*3/uL Normal 1.00-4.00 [facility] Comment on above: Order Comment: Speci men Type: BLOOD SPECIMENOrdering Facility: [facility] Address: [address] [place] [address] Performed By: #### 5 7021-8 ####[facility] [id number] [place] [address] [place] Lymphocytes/100 WBC (Bld) 23.5 % Normal [facility] Comment on above: Order Comment: Speci men Type: BLOOD SPECIMENOrdering Facility: [facility] Address: [address] [place] [address] Performed By: #### 5 7021-8 ####[facility]ENTERLI [id number] [place] [address] [place] MCH (RBC) [Entitic mass] 29.1 pg Normal 26.0-34.0 [facility] Comment on above: Order Comment: Speci men Type: BLOOD SPECIMENOrdering Facility: [facility] Address: [address] [place] [address] Performed By: #### 5 7021-8 ####[facility]NCCEN[facility] [id number] [place] [address] [place] MCHC (RBC) [Mass/Vol] 33.3 g/dL Normal 30.5-36.0 [facility] Comment on above: Order Comment: Speci men Type: BLOOD SPECIMENOrdering Facility: [facility] Address: [address] [place], [place] [id number] Performed By: #### 5 7021-8 ####[facility] [id number] [place] [address] [place] MCV (RBC) [Entitic vol] 87.3 fL Normal 80.0-100.0 [facility] Comment on above: Order Comment: Speci men Type: BLOOD SPECIMENOrdering Facility: [facility] Address: [address] [place] [id number] Performed By: #### 5 7021-8 ####[facility] [id number] [place] [address] [place] Monocytes (Bld) [#/Vol] 0.62 10*3/uL Normal <0.87 [facility] Comment on above: Order Comment: Speci men Type: BLOOD SPECIMENOrdering Facility: [facility] Address: [address] [place] [address] Performed By: #### 5 7021-8 ####[facility] [id number] [place] [address] [place] Monocytes/100 WBC (Bld) 8.0 % Normal [facility] Comment on above: Order Comment: Speci men Type: BLOOD SPECIMENOrdering Facility: [facility] Address: [address] [place] [address] Performed By: #### 5 7021-8 ####[facility] CENTERLIA [id number] [place] [address] [place] Neutrophils (Bld) [#/Vol] 4.71 10*3/uL Normal 1.45-7.50 [facility] Comment on above: Order Comment: Speci men Type: BLOOD SPECIMENOrdering Facility: [facility] Address: [address] [place] [address] Performed By: #### 5 7021-8 ####[facility]ENTERLIA [id number] [place] [address] [place] Neutrophils/100 WBC (Bld) 61.1 % Normal [facility] Comment on above: Order Comment: Speci men Type: BLOOD SPECIMENOrdering Facility: [facility] Address: [address] [place] [address] Performed By: #### 5 7021-8 ####[facility] [id number] [place] [address] [place] Nucleated RBC (Bld) [#/Vol] 10*3/uL Normal <0.01 [facility] Comment on above: Order Comment: Speci men Type: BLOOD SPECIMENOrdering Facility: [facility] Address: [address] [place] [address] Performed By: #### 5 7021-8 ####[facility] SOUTHNCLIA [id number] [place] [address] [place] Nucleated RBC/100 WBC (Bld) [Ratio] 0.0 /100 WBC Normal [facility] Comment on above: Order Comment: Speci men Type: BLOOD SPECIMENOrdering Facility: [facility] Address: [address] [place] [address] Performed By: #### 5 7021-8 ####[facility] SOUTHNCLIA [id number] [place] [address] [place] Platelet mean volume (Bld) [Entitic vol] 10.2 fL Normal 9.0-12.7 [facility] Comment on above: Order Comment: Speci men Type: BLOOD SPECIMENOrdering Facility: [facility] Address: [address] [place] [address] Performed By: #### 5 7021-8 ####[facility] FRANSISCOANGELESA [id number] [place] [address] [place] Platelets (Bld) [#/Vol] 304 10*3/uL Normal 150-400 [facility] Comment on above: Order Comment: Speci men Type: BLOOD SPECIMENOrdering Facility: [facility] Address: [address] [place] [address] Performed By: #### 5 7021-8 ####[facility] SOUTHMIKADREAA [id number] [place] [address] [place] RBC (Bld) [#/Vol] 4.50 10*6/uL Normal 3.90-5.20 [facility] Comment on above: Order Comment: Speci men Type: BLOOD SPECIMENOrdering Facility: [facility] Address: [address] [place] [address] Performed By: #### 5 7021-8 ####[facility] SOUTHMIKADREAA [id number] [place] [address] [place] WBC (Bld) [#/Vol] 7.71 10*3/uL Normal 3.70-11.00 [facility] Comment on above: Order Comment: Speci men Type: BLOOD SPECIMENOrdering Facility: [facility] Address: [address] [place] [address] Performed By: #### 5 7021-8 ####[facility] SOUTHNCLIA [id number] [place] [id number] [place] [facility] CNOVon 10-22-2024 CNOV Office Visit (OBGYWM) CLARISA DE LA CRUZ ([id number]) 1990 F Date Time Provider Department 10/22/24 1:45 PM GEOVANNA AVILEZ OBGYWM During your visit today, we recorded the following information about you: Blood pressure Weight Last Period 118/72 83.9 kg 10/03/24 Geovanna Avilez APRN.CNM 10/22/2024 2:23 PM Signed Obstetrics and Gynecology [place] [employer] APPRENTICE Visit Subjective Recording using ambient combionic software for draft documentation of the visit was discussed with the patient/authorized floor representative; all questions welcomed and answered. Patient/authorized floor representative agreed to proceed CHIEF COMPLAINT: Irregular menses HPI: The patient is a 34-year-old female, , with a history of HTN, presenting with concerns of irregular menses and severe dysmenorrhea. The patient reports experiencing two menstrual periods per month since June, following the resumption of menses after her last delivery via on 11/30/2023. She notes minimal intervals of 3-4 days between periods, with occasional longer intervals of up to 1.5 weeks. She describes severe pain occurring 1-2 days before each period, likening it to contractions that are intense enough to double her over but last only a few minutes. She denies any vaginal discharge, pruritus, burning, or malodor. She reports dyspareunia but denies postcoital bleeding. She is not currently using any form of contraception. 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 Likely round ligament pain. To notify if persistent or worsening. Lyme disease Mesenteric lymphadenitis POTS (postural orthostatic tachycardia syndrome) TIA (transient ischemic attack) 04/2023 Vaginal bleeding in , first trimester ([facility]) 07/01/2023 Per OB records, humza gestational hemorrhage: 2.4 cm on dating ultrasound. Reviewed likely the cause of her bleeding and that it likely resolved. Plans for NT scan and will confirm. No further bleeding. PAST SURGICAL HISTORY Procedure Laterality Date DELIVERY ONLY 2021 DELIVERY ONLY 11/30/2023 LTCS D AND C 07/17/2018 FOr retained POC EXCIS UTERINE FIBROID,VAG APPRCH 07/2018 PORT Insertion AND removal x 2 FAMILY HISTORY Problem Relation Age of Onset No Known Problems Mother Hypertension Father other (Sloping Brain Syndrome) Father Hypertension Sister No Known Problems Sister Heart Attack Maternal Grandmother Stroke Maternal Grandmother 63 No Known Problems Maternal Grandfather Social History Tobacco Use Smoking status: Never Passive exposure: Never Smokeless tobacco: Never Vaping Use Vaping status: Never Used Substance Use Topics Alcohol use: Never Drug use: Never Current Outpatient Medications Medication Sig labetalol (TRANDATE) 100 mg tablet Take 1 tablet by mouth two times a day. PNV no.95/ferrous fum/folic ac ( ORAL) Take by mouth. loratadine (CLARITIN) 10 mg tablet Take 1 tablet by mouth once daily as needed (for allergy symptoms.). No current facility-administere d medications for this visit. ALLERGIES Allergen Reactions Adhesive Tape-Silic* Rash Tegaderm dressing Latex, Natural Rubb* Hives, Rash Nifedipine Rash Adhesive Tape (Isabel* Rash Tegaderm Latex Rash Sulfa (Sulfonamide * Rash Venom-Honey Bee Swelling REVIEW OF SYSTEMS: Genitourinary: (+) irregular menses, (+) dysmenorrhea, (+) left pelvic pain, (+) dyspareunia, (-) vaginal discharge, (-) vaginal pruritus, (-) vaginal burning, (-) vaginal odor, (-) postcoital bleeding Psychiatric: (+) irritability Objective SENSITIVE EXAM: The sensitive examination was discussed with the Patient or Patient's Authorized Geneticist. As applicable, any other physician, advance practice provider, medical student, or other health professional student that will be observing or involved in the sensitive examination for educational or training purposes was discussed with the Patient or Authorized Geneticist. The Patient or Authorized Geneticist has agreed to proceed with the sensitive examination. (Sensitive examination includes inspection and/or palpation of the breasts, pelvis, prostate and anorectal regions). PHYSICAL EXAM: BP 118/72 Wt 185 lb (83.9kg) LMP 10/03/2024 GENERAL: Pleasant; in no (more content not included)... Normal [facility] T4 Free SerPl-mCncon 025 Free T4 [Mass/Vol] 0.9 ng/dL Normal 0.9-1.7 [facility] Comment on above: Order Comment: Speci men Type: BLOOD SPECIMENOrdering Facility: [facility] Address: [address] [place] [address] Performed By: #### 3 016-3, 3024-7 ####[facility] LABCLIA [id number] [place] [address] [place] TSH SerPl-aCncon 10-22-2024 TSH Qn 0.837 m[IU]/L Normal 0.270-4.200 [facility] Comment on above: Order Comment: Speci men Type: BLOOD SPECIMENOrdering Facility: [facility] Address: [address] [place] [address] Result Comment: If t he patient is , TSH reference range varies by gestational period: First Trimester (weeks 9-12): 0.180-2.990 mIU/L Second Trimester: 0.110-3.980 mIU/L Third Trimester: 0.480-4.710 mIU/L Noe Lynch et al. A Practical Approach for the Verifications and Determination of Site- and Trimester-Specific Reference Intervals for Thyroid Function tests in . Thyroid, 2019:29:3:412-420. Alberto Guzmán, et al. 2017 Guidelines of the [place] Thy[employer] for the Diagnosis and Management of Thyroid Disease during and the . Thyroid, 2017:27:3:315-389. Performed By: #### 3 016-3, 3024-7 ####[facility] DANA [id number] ADENIKE CASTILLO [address] [place] CNOVon 09-30-2024 CNOV Office Visit (UCWSTR) CLARISA DE LA CRUZ ([id number]) 1990 F Date Time Provider Department 09/30/24 3:00 PM JENIFFER STYLES [facility] During your visit today, we recorded the following information about you: Temperature Pulse Blood pressure Weight 98.3 degrees 96/minute 140/80 83.9 kg Height 1.715 m Jeniffer Styles APRN.CHECK WEIGHER 09/30/2024 3:21 PM Signed [facility] Subjective HPI HPI Clarisa De La Cruz is a 34 year old female who presents today for CC of cough, sinus, ear pressure. This started 2 weeks ago. Has tried otc medication for relief. Symptoms are worsened by nothing. Risk factors sick exposures at home and school. .Patient presents with: Ear Pain Cough PAST MEDICAL HISTORY Diagnosis Date Anemia 07/2018 Arachnoid cyst History of intrauterine in previous 07/01/2023 Hx of preeclampsia, prior , currently ([facility]) 01/2021 Around 32weeks Left lower quadrant abdominal pain 07/01/2023 Reports random sharp pain to left side. Likely round ligament pain. To notify if persistent or worsening. Lyme disease Mesenteric lymphadenitis POTS (postural orthostatic tachycardia syndrome) TIA (transient ischemic attack) 04/2023 Vaginal bleeding in , first trimester ([facility]) 07/01/2023 Per OB records, humza gestational hemorrhage: 2.4 cm on dating ultrasound. Reviewed likely the cause of her bleeding and that it likely resolved. Plans for NT scan and will confirm. No further bleeding. PAST SURGICAL HISTORY Procedure Laterality Date DELIVERY ONLY 2021 DELIVERY ONLY 11/30/2023 LTCS D AND C 07/17/2018 FOr retained POC EXCIS UTERINE FIBROID,VAG APPRCH 07/2018 PORT Insertion AND removal x 2 ALLERGIES Adhesive Tape-Silicones; Latex, Natural Rubber; Nifedipine; Adhesive Tape (Rosins); Latex; Sulfa (Sulfonamide Antibiotics); and Venom-Honey Bee MEDICATIONS labetalol (TRANDATE) 100 mg tablet Take 1 tablet by mouth two times a day. PNV no.95/ferrous fum/folic ac ( ORAL) Take by mouth. loratadine (CLARITIN) 10 mg tablet Take 1 tablet by mouth once daily as needed (for allergy symptoms.). FAMILY HISTORY Problem Relation Age of Onset No Known Problems Mother Hypertension Father other (Sloping Brain Syndrome) Father Hypertension Sister No Known Problems Sister Heart Attack Maternal Grandmother Stroke Maternal Grandmother 63 No Known Problems Maternal Grandfather Social History Tobacco Use Smoking status: Never Passive exposure: Never Smokeless tobacco: Never Vaping Use Vaping status: Never Used Substance Use Topics Alcohol use: Never Drug use: Never Review of Systems Constitutional: Negative for chills, fatigue and fever. HENT: Positive for ear pain, rhinorrhea, sinus pressure and sore throat. Negative for ear discharge and sinus pain. Eyes: Negative for discharge and redness. Respiratory: Positive for cough. Negative for shortness of breath and wheezing. Cardiovascular: Negative for chest pain. Skin: Negative for rash. Objective BP 140/80 Pulse 96 Temp 36.8 ?C (98.3 ?F) Ht 171.5 cm (5' 7.5) Wt 83.9 kg (185 lb) LMP 03/27/2023 SpO2 98% BMI 28.55 kg/m? Physical Exam Constitutional: General: She is not in acute distress. Appearance: She is not toxic-appearing or diaphoretic. HENT: Head: Normocephalic and atraumatic. Right Ear: Hearing, ear canal and external ear normal. A middle ear effusion is present. Left Ear: Hearing, ear canal and external ear normal. A middle ear effusion is present. Nose: Nose normal. Mouth/Throat: Pharynx: Uvula midline. Eyes: General: Lids are normal. No scleral icterus. Right eye: No discharge. Left eye: No discharge. Conjunctiva/sclera: Conjunctivae normal. Pupils: Pupils are equal, round, and reactive to light. Neck: Trachea: Trachea normal. Cardiovascular: Rate and Rhythm: Normal rate and regular rhythm. Heart sounds: Normal heart sounds. Pulmonary: Effort: Pulmonary effort is normal. Breath sounds: Normal breath sounds. Musculoskeletal: Cervical back: Normal range of motion and neck supple. Lymphadenopathy: Cervical: No cervical adenopathy. Skin: Findings: No rash. Neurological: Mental Status: She is alert and oriented to person, place, and time. {ASSESSMENT/PLAN: 1. Sinobronchitis - ICD9: 473.9, 490, ICD10: J32.9, J40 - Will begin treatment with as per antibiotic as written, see orders - Supportive care with plenty of fluids, rest, and analgesia prn. - Follow up in 3-5 days if symptoms persist or worsen. - AMOXICILLIN 875 MG-POTASSIUM CLAVULANATE 125 MG TABLET Jeniffer Styles APRN.CHECK WEIGHER History and Record Review External record(s) reviewed: prior outpatient record. Disposition The patient was discharged. Procedures Referring Provider: SELF [[id number]] Allergies As of Date: 09/30/2024 Note (more content not included)... Normal [facility] Basic Metabolic Profile (BMP )on 06-28-2024 BUN/CRE 22.9 RATIO High 10-20 [facility] Comment on above: Performed By: #### L 501.5200, L100.0100, L500.2500 #### [facility] Laboratory [address] [place], [address] CA,Total 9.6 mg/dL Normal 8.5-10.1 [facility] Comment on above: Performed By: #### L 501.5200, L100.0100, L500.2500 #### [facility] Laboratory [address] [place], [address] Chloride [Moles/Vol] 108 mmol/L High 98-107 [facility] Comment on above: Performed By: #### L 501.5200, L100.0100, L500.2500 #### [facility] Laboratory [address] [place], [address] CO2 [Moles/Vol] 28.0 mmol/L Normal 21.0-32.0 [facility] Comment on above: Performed By: #### L 501.5200, L100.0100, L500.2500 #### [facility] Laboratory [address] [place], [address] Creatinine [Mass/Vol] 0.74 mg/dL Normal 0.55-1.02 [facility] Comment on above: Result Comment: The validity of the calculated GFR GFRAA in patients over 70 years has not been determined. Clinical correlation is essential. Performed By: #### L 501.5200, L100.0100, L500.2500 #### [facility] Laboratory [address] [place], [address] ECRCL 120.62 ml/min Normal [facility] Comment on above: Performed By: #### L 501.5200, L100.0100, L500.2500 #### [facility] [address] [place], [address] EST GFR - AA 116 mL/min Normal >60 [facility] Comment on above: Result Comment: Afri can Hungarian GFR Calc Performed By: #### L 501.5200, L100.0100, L500.2500 #### [facility] Laboratory [address] [place], [address] GAP 5 Normal 5-15 [facility] Comment on above: Performed By: #### L 501.5200, L100.0100, L500.2500 #### [facility] [address] [place], [address] GFR/1.73 sq M.predicted among non-blacks MDRD (S/P/Bld) [Vol rate/Area] 96 mL/min/{1.73_m2} Normal >60 [facility] Comment on above: Result Comment: Non- GFR Calc Performed By: #### L 501.5200, L100.0100, L500.2500 #### [facility] [address] [place], [address] Glucose [Mass/Vol] 102 mg/dL Normal 74-106 [facility] Comment on above: Result Comment: Fast ing Glucose result from 100 to 125 mg/dL suggests IMPAIRED HOMEOSTASIS per A.D.A. criteria. Performed By: #### L 501.5200, L100.0100, L500.2500 #### [facility] [address] [place], [address] Potassium [Moles/Vol] 4.1 mmol/L Normal 3.5-5.1 [facility] Comment on above: Performed By: #### L 501.5200, L100.0100, L500.2500 #### [facility] [address] [place], [address] Sodium [Moles/Vol] 140 mmol/L Normal 136-145 [facility] Comment on above: Performed By: #### L 501.5200, L100.0100, L500.2500 #### [facility] [address] [place], [address] Urea nitrogen [Mass/Vol] 17 mg/dL Normal 7-18 [facility] Comment on above: Performed By: #### L 501.5200, L100.0100, L500.2500 #### [facility] [address] [place], [address] CBC W/Diff, Automatedon 02-2 0-2024 Absolute Lymph 1.29 X10 3/uL Normal 0.83-4.51 [facility] Comment on above: Performed By: #### L 501.5200, L100.0100, L500.2500 #### [facility] [address] [place], [address] Absolute Neut 3.9 X10 3/uL Normal 2.0-7.7 [facility] Comment on above: Performed By: #### L 501.5200, L100.0100, L500.2500 #### [facility] Laboratory [address] [place], [address] Basophils/100 WBC (Bld) 0.8 % Normal 0-1 [facility] Comment on above: Performed By: #### L 501.5200, L100.0100, L500.2500 #### [facility] [address] [place], [address] Eosinophils/100 WBC (Bld) 7.7 % High 0-5 [facility] Comment on above: Performed By: #### L 501.5200, L100.0100, L500.2500 #### [facility] [address] [place], [address] Erythrocyte distribution width (RBC) [Ratio] 12.3 % Normal 11.6-14.6 [facility] Comment on above: Performed By: #### L 501.5200, L100.0100, L500.2500 #### [facility] [address] [place], [address] Hematocrit (Bld) [Volume fraction] 39.2 % Normal 37-47 [facility] Comment on above: Performed By: #### L 501.5200, L100.0100, L500.2500 #### [facility] [address] [place], [address] Hemoglobin (Bld) [Mass/Vol] 12.9 g/dL Normal 12.0-15.0 [facility] Comment on above: Performed By: #### L 501.5200, L100.0100, L500.2500 #### [facility] [address] [place], [address] IG% 2.000 High 0.0-0.9 [facility] Comment on above: Result Comment: IG% - Immature Granulocytes (promyelocytes, myelocytes and metamyelocytes) > 1% indicates that a LEFT SHIFT is Present. Performed By: #### L 501.5200, L100.0100, L500.2500 #### [facility] [address] [place], [address] Lymphocytes/100 WBC (Bld) 19.8 % Normal 19-41 [facility] Comment on above: Performed By: #### L 501.5200, L100.0100, L500.2500 #### [facility] [address] [place], [address] MCH (RBC) [Entitic mass] 29.4 pg Normal 27.0-32.0 [facility] Comment on above: Performed By: #### L 501.5200, L100.0100, L500.2500 #### [facility] [address] [place], [address] MCHC (RBC) [Mass/Vol] 32.9 g/dL Normal 32-36 [facility] Comment on above: Performed By: #### L 501.5200, L100.0100, L500.2500 #### [facility] Laboratory [address] [place], [address] MCV (RBC) [Entitic vol] 89.3 fL Normal 81-99 [facility] Comment on above: Performed By: #### L 501.5200, L100.0100, L500.2500 #### [facility] [address] [place], [address] Monocytes/100 WBC (Bld) 10.6 % High 0-10 [facility] Comment on above: Performed By: #### L 501.5200, L100.0100, L500.2500 #### [facility] [address] [place], [address] Neutrophils/100 WBC (Bld) 59.1 % Normal 47-70 [facility] Comment on above: Performed By: #### L 501.5200, L100.0100, L500.2500 #### [facility] [address] [place], [address] Nucleated RBC (Bld) [#/Vol] 0 10*3/uL Normal 0-5 [facility] Comment on above: Performed By: #### L 501.5200, L100.0100, L500.2500 #### [facility] [address] [place], [address] Platelet mean volume (Bld) [Entitic vol] 10.2 fL Normal 6.2-12.0 [facility] Comment on above: Performed By: #### L 501.5200, L100.0100, L500.2500 #### [facility] Laboratory [address] [place], [address] Platelets (Bld) [#/Vol] 317 10*3/uL Normal 150-450 [facility] Comment on above: Performed By: #### L 501.5200, L100.0100, L500.2500 #### [facility] Laboratory [address] [place], [address] RBC (Bld) [#/Vol] 4.39 10*6/uL Normal 4.2-5.4 [facility] Comment on above: Performed By: #### L 501.5200, L100.0100, L500.2500 #### [facility] [address] [place], [address] RDW SD 40.2 fl Normal 35.1-43.9 [facility] Comment on above: Performed By: #### L 501.5200, L100.0100, L500.2500 #### [facility] Laboratory [address] [place], [address] WBC (Bld) [#/Vol] 6.5 10*3/uL Normal 4.4-11.0 [facility] Comment on above: Performed By: #### L 501.5200, L100.0100, L500.2500 #### [facility] Laboratory [address] [place], [address] Emergency Department Summary on 06-28-2024 Emergency Department Summary [facility] Medical Records Department [address] [place] [address] Emergency Department Summary 06/28/24 MR#: [id number] Acct: [id number] Name: CLARISA DE LA CRUZ Rep #: [id number] : 1990 34 From: Seferino Hugo DO PCP: HERON Caldwell Status:DEP ER Location: ED HPI History of Present Illness Chief Complaint: Neuro S/Sx Informant: patient and spouse/S.O. Narrative Narrative: Patient is a 34-year-old female with history of hypertension. She also reports a history of atypical migraine and previous TIA. She states that over the last 3 days she has developed a migraine and with this has noticed some numbness tingling weakness of her left arm and leg. She states there is been no sick symptoms and denies fevers or chills or trauma. She states that she contacted her doctor as her symptoms were persisting and as she has had a TIA in the past was advised to come to the hospital for evaluation [facility] Medical History (Updated 06/28/24 @ 06:[address] Seferino Hugo DO) Pre-eclampsia superimposed on chronic hypertension Pre-eclampsia Lyme disease Hx of intrauterine growth restriction in prior , currently Essential (primary) hypertension IBS (irritable bowel syndrome) TIA (transient ischemic attack) Anxiety Tachycardia Chronic hypertension affecting delivery delivered Multiple fractures IUFD at 20 weeks or more of gestation Osteoporosis POTS (postural orthostatic tachycardia syndrome) Home Medications ???Medication ???Instructions ???Recorded ???Last Taken ???Type pediatric [id number] 1 ea PO DAILY 04/26/19 0 11/30/23 07:00 History 1 ea labetalol 200 mg tablet 200 mg PO Q12H HTN 10/12/23 07:00 History 300 mg diphenhydramine HCl 25 mg capsule 25 mg PO Q8H PRN migraines Unknown History (Aler-Cap) aspirin 81 mg capsule 81 mg PO DAILY 06/27/24 Unknown Hi story Allergy/AdvReac Type Severity Reaction Status Date / Time Sulfa (Sulfonamide Allergy Intermediate Hives Verified 06/27/24 21:37 Antibiotics) latex Allergy Rash Verified 06/27/24 21:37 adhesive tape AdvReac Intermediate Rash Verified 06/27/24 21:37 Family History Father Diabetes Hypertension Dementia Surgical History (Updated 12/10/23 @ 00:02 by Background Brigido) S/P History of surgery S/P dilation and curettage Social History adopted: No household members: spouse 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 Smoking Status: Never smoker ROS ROS ED Constitutional Constitutional ED: Denies chills or fever(s) Eyes Eyes: Reports other Details: Negative photophobia ; Denies change in vision ENT ENT ED: Denies rhinorrhea or sore throat Cardiovascular Cardiovascular: Denies chest pain, palpitations or racing heartbeat Respiratory/Chest Respiratory/Chest: Denies cough or dyspnea Gastrointestinal Gastrointestinal: Reports nausea; Denies abdominal pain, diarrhea or vomiting Genitourinary Genitourinary ED: Denies dysuria Musculoskeletal Musculoskeletal: Denies neck pain Integumentary Denies rash Neurologic Neurologic: Reports headache(s), paresthesias and weakness Hematologic/Lymphati c Hematologic/Lymphati c: Denies easy bleeding or easy bruising EXAM Physical Exam Const Vital Signs: 06/27/24 21:37 06/27/24 23:46 06/28/24 01:00 Temperature 98.1 F Temperature Source Oral Pulse Rate 97 90 84 Respiratory Rate 18 17 17 Blood Pressure 143/104 H 134/95 H 129/84 H Blood Pressure Mean 117 108 99 Pulse Ox 99 97 98 Oxygen Delivery Method Room Air Room Air Room Air 06/28/24 01:51 Temperature 98.4 F Temperature Source Pulse Rate 70 Respiratory Rate 17 Blood Pressure 122/80 H Blood Pressure Mean 94 Pulse Ox 99 Oxygen Delivery Method Positive well nourished and well developed General Appearance ED: well developed; Negative for pallor HEENT HEENT Narrative: Normocephalic atraumatic No sign of infection noted in the posterior pharynx Eyes PERRL and EOMs intact bilaterally General Eye ED: Negative for scleral icterus Neck supple Neck Narrative: No nuchal rigidity or meningeal signs Resp normal respiratory effort and clear to auscultation bilaterally Cardio regular rate and regular rhythm Rate: other Other Details: Heart is regular rate and rhythm without murmurs rubs or gallops Radial and carotid pulses are equal and symmetric GI normal to inspection, nondistended, normoactive bowel sounds, non-tender, non-distended and no masses Auscultation: normoactive bowel sounds Palpation: soft Extremity normal to inspection Extremity Narrative: No as (more content not included)... Normal [facility] Magnesiumon 06-28-2024 Magnesium [Mass/Vol] 2.2 mg/dL Normal 1.6-2.6 [facility] Comment on above: Performed By: #### L 501.5200, L100.0100, L500.2500 #### [facility] Laboratory [address] [place], [address] CTA Head AND Neck W/ Contras ton 06-27-2024 CTA Head AND Neck W/ Contrast [facility] Imaging Services [address] [place], [place] [address] CTA Head AND Neck W/ Contrast MR#: [id number] Acct: [id number] Name: CLARISA DE LA CRUZ JON Rep #: [id number] : 1990 F 34 From: Soraida Barrera MD PCP: HERON Caldwell Status: REG ER Study: CTA Head AND Neck W/ Contrast Date of Exam: Exam# [id number] Ordering Dr: Seferino Hugo DO PROCEDURE: CTA HEAD AND NECK W/ CONTRAST REASON FOR EXAM: Left-sided weakness TECHNIQUE: Noncontrast images were initially acquired through the head. CTA imaging of the head and neck from the aortic arch to the skull vertex with intravenous contrast. 3D reconstructions. Percentage of stenosis is based on NASCET criteria. One or more dose reduction techniques were used (e.g., Automated exposure control, adjustment of the mA and/or kV according to patient size, use of iterative reconstruction technique). CONTRAST: 100 mL Isovue 370. COMPARISON: None. FINDINGS: Head CT: No acute intracranial hemorrhage or extra-axial collection. The moon-white matter differentiation is normal and there are no CT findings for acute territorial infarct. Incidentally noted is an arachnoid cyst in the posterior fossa ventricles are normal in size and configuration, without midline shift or mass effect. Calvarium is intact. Imaged globes and orbits are normal. There is mucosal thickening in the ethmoid air cells. CTA neck: Aortic Arch: Normal size and branching pattern. No significant atherosclerotic plaque. Brachiocephalic and Subclavians: Unremarkable RIGHT Carotid: Right CCA: Unremarkable. Right ICA: Unremarkable. Maximum stenosis (NASCET): 0 % Right ECA: Unremarkable. LEFT Carotid: Left CCA: Unremarkable. Left ICA: Unremarkable. Maximum stenosis (NASCET): 0 % Left ECA: Unremarkable. Vertebrals: Codominant. Arise from the subclavians. Both vertebrals form the basilar. RIGHT Vertebral: Unremarkable. LEFT Vertebral: Unremarkable. CTA head: No intracranial aneurysms or large vascular malformations are identified. Anterior cerebral arteries: Unremarkable. Middle cerebral arteries: Unremarkable. Basilar artery: Unremarkable. Posterior cerebral arteries: Unremarkable. Other major branches of the posterior circulation: Unremarkable. Major venous structures: Unremarkable. Other findings: No lymphadenopathy. Lung apices are clear. Bones are unremarkable. CT/CTA Head AND Neck W/ Contrast IMPRESSION: NO ACUTE INTRACRANIAL ABNORMALITY. NEGATIVE FOR HEMODYNAMICALLY SIGNIFICANT STENOSIS. NEGATIVE FOR LARGE VESSEL OCCLUSION. Reading Location: [id number] CC: HERON Encarnacion; Seferino Hugo DO Draftsperson: Signed Normal [facility] UA DIP, URINE (POC)on 2023 BILIRUBIN UA (POCT) Negative Negative [facility] CLARITY UA (POCT) Clear [facility] COLOR UA (POCT) Yellow [facility] GLUCOSE UA (POCT) Negative Negative mg/dL [facility] Hemoglobin Ql (U) Small Abnormal Negative [facility] Interpretation and review of laboratory results Abnormal [facility] KETONE UA (POCT) Negative Negative mg/dL [facility] LEUKOCYTES UA (POCT) Negative Negative [place] [facility] NITRITE UA (POCT) Negative Negative [facility] PH UA (POCT) 5.5 4.5 - 8.0 [facility] Protein Ql (U) Negative Negative mg/dL [facility] SPECIFIC GRAVITY UA (POCT) >=1.030 1.005 - 1.030 [facility] UROBILINOGEN UA (POCT) 0.2 Normal E.U./d L [facility] Location:[facility], [address], [place], [address] [facility] POINT OF CARE [facility] Biophysical profile.mushtaq dy movement USon 11-28-2023 [facility] Radiology Study observation (narrative) [facility] URINE OB DIP B/Oon 4 Glucose Ql (U) Negative Neg mg/dL [facility] Protein.monoclonal (U) [Mass/Vol] Negative Neg mg/dL [facility] Biophysical profile.mushtaq dy movement USon 11-21-2023 [facility] Radiology Study observation (narrative) [facility] URINE OB DIP B/Oon 4 Glucose Ql (U) Negative Neg mg/dL [facility] Interpretation and review of laboratory results Normal [facility] Protein.monoclonal (U) [Mass/Vol] Negative Neg mg/dL [facility] Biophysical profile.mushtaq dy movement USon 11-15-2023 [facility] Radiology Study observation (narrative) [facility] Biophysical profile.mushtaq dy movement USon 11-07-2023 [facility] Radiology Study observation (narrative) [facility] URINE OB DIP B/Oon 4 Glucose Ql (U) Negative Neg mg/dL [facility] Interpretation and review of laboratory results Normal [facility] Protein.monoclonal (U) [Mass/Vol] Negative Neg mg/dL [facility] Biophysical profile.mushtaq dy movement USon 11-01-2023 [facility] Radiology Study observation (narrative) [facility] URINE OB DIP B/Oon 4 Glucose Ql (U) Negative Neg mg/dL [facility] Protein.monoclonal (U) [Mass/Vol] Negative Neg mg/dL [facility] Biophysical profile.mushtaq dy movement USon 10-25-2023 [facility] Radiology Study observation (narrative) [facility] URINE OB DIP B/Oon 4 Glucose Ql (U) Negative Neg mg/dL [facility] Interpretation and review of laboratory results Normal [facility] Protein.monoclonal (U) [Mass/Vol] Negative Neg mg/dL [facility] Biophysical profile.mushtaq dy movement USon 10-18-2023 [facility] Radiology Study observation (narrative) [facility] Examination level ultrasound on 10-11-2023 [facility] Radiology Study observation (narrative) [facility] No Panel InformationOrdered By: Tabby Krueger on 09-14-2023 Vaginal Amniotic Fluid Detection Negative Negative [facility] Comment on above: Amniotic fluid not p resent indicates No Rupture of FetalMembranes at time of specimen collection. UA DIP, URINE (POC)on 2023 BILIRUBIN UA (POCT) Negative Negative [facility] CLARITY UA (POCT) Clear [facility] COLOR UA (POCT) Yellow [facility] GLUCOSE UA (POCT) Negative Negative mg/dL [facility] Hemoglobin Ql (U) Negative Negative [facility] Interpretation and review of laboratory results Abnormal [facility] KETONE UA (POCT) Negative Negative mg/dL [facility] LEUKOCYTES UA (POCT) Trace Abnormal Negative [facility] NITRITE UA (POCT) Negative Negative [facility] PH UA (POCT) 6.5 4.5 - 8.0 [facility] Protein Ql (U) Negative Negative mg/dL [facility] SPECIFIC GRAVITY UA (POCT) 1.020 1.005 - 1.030 [facility] UROBILINOGEN UA (POCT) 0.2 Normal E.U./d L [facility] Location:[facility], [address] [facility], [place], [place], [address] [place] [address] POINT OF CARE [facility] URINE OB DIP B/OOrdered By: Haley Barrera on 09-07-2023 Glucose Ql (U) Negative Neg mg/dL [facility] Protein.monoclonal (U) [Mass/Vol] Negative Neg mg/dL [facility] Examination level ultrasound on 08-16-2023 [facility] URINE OB DIP B/Oon Glucose Ql (U) Negative Neg mg/dL [facility] Protein.monoclonal (U) [Mass/Vol] Negative Neg mg/dL [facility] CNOVon 08-02-2023 CNOV Office Visit (CVAKPO) CLARISA DE LA CRUZ ([id number]) 1990 F Date Time Provider Department 08/02/23 11:00 AM SNEHA CARDENAS During your visit today, we recorded the following information about you: Pulse Blood pressure Weight Height 81/minute 109/76 84.8 kg 1.715 m Sneha Cardenas APRN.CNP 08/15/2023 11:30 PM Signed [facility] Initial Visit [facility] [id number] PCP: Ottoniel Encarnacion CNP [address] [place] [address] [facility] Clarisa De La Cruz is a 33 year old female who presents for neurologic evaluation regarding history of possible transient neurologic symptoms concerning for possible TIA. Stroke Event Information 33 year old right-handed female with significant past medical history of anemia, POTS, chronic headaches, prior pregnancies complicated by preeclampsia and separate with intrauterine who was evaluated at outside hospital following onset of persistent headache with transient episode of speech difficulty. 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 This was witnessed by other teachers. She reports a history of POTS with syncopal episodes and notes this episode to be unlike these prior events. She reports her symptoms worsened when she started to experience left arm/leg numbness and begun to drag her left foot. These symptoms last for ~30 minutes to an hour. Her arrived to work to drive her home. She reports a headache starting that morning upon awakening that persistent throughout the day. She notes the head to be severe, stabbing, holocephalic headache but more prominent in the left posterior occipital region. Upon returning home she took a nap although the headache persisted afterwards. She had tried Tylenol without any relief. The following day her headache persisted while at work. She again tried Tylenol with little improvement. She notes an episode of being unable to unlock her room door and she had difficulty remember how to use the bunn. On 04/23/2024 she sought evaluation [place] [facility] [place] blood pressure was noted to be elevated 153/99. She received headache cocktail with headache resolution afterwards. She has a history of hypertension following prior with preeclampsia for which she takes labetalol 50 mg daily at the time. She underwent CT/CTA imaging without any acute findings. She was transferred to [facility] for further evaluation. MRI brain imaging was negative. She was advised to have TTE and this was completed as an outpatient- normal per report although unable to perform bubbles study as she has since discovered she is . Started on aspirin 81 mg daily at hospital discharge and this was recommended to continue in her current secondary to prior history of preeclampsia. She reports chronic history of migraines starting at age 14. She has more headache days than not. She denies prior history of migraines headaches with associated language deficits or unilateral weakness. Occasionally headaches with confusion before.. She has only tried OTC medications with occasional relief recently. Was on medications as a teenager, had bad side effects. Visual auras with floaters, black dots. No photosensitivity, + phonophobia. No previous. Reports this to be one of the more severe headaches she has experienced. Has had 2 more severe headaches since events. Underwent echo was normal, unable to complete. Notes sinus/tension-type headaches as well occasionally. Denies personal history of blood clotting disorders. Prior history of anemia following . Maternal grandmother with history of stroke and heart disease. Denies personal tobacco or alcohol use. PAST MEDICAL HISTORY Diagnosis Date Anemia 07/2018 Arachnoid cyst History of intrauterine in previous 07/01/2023 Hx of preeclampsia, prior , currently 01/2021 Around 32weeks Left lower quadrant abdominal pain 07/01/2023 Reports random sharp pain to left side. Likely round ligament pain. To notify if persistent or worsening. Lyme disease Mesenteric lymphadenitis POTS (postural orthostatic tachycardia syndrome) TIA (transient ischemic attack) 04/2023 Vaginal bleeding in , first trimester 07/01/2023 Per OB records, humza gestational hemorrhage: 2.4 cm on dating ultrasound. Reviewed likely the cause of her bleeding and that it likely resolved. Plans for NT scan and will confirm. No further bleeding. PAST SURGICAL HISTORY Procedure Laterality Date DELIVERY ONLY 2021 D AND C 07/17/2018 FOr retained POC EXCIS UTERINE FIBROID,VAG APPRC 07/2018 PORT Insertion AND removal x 2 FAMILY HISTORY Problem Relation Age of Onset (more content not included)... Normal [facility] URINE OB DIP B/Oon 4 Glucose Ql (U) Negative Neg mg/dL [facility] Protein.monoclonal (U) [Mass/Vol] Negative Neg mg/dL [facility] URINE OB DIP B/Oon 4 Glucose Ql (U) Negative Neg mg/dL [facility] Protein.monoclonal (U) [Mass/Vol] Negative Neg mg/dL [facility] ULTRASOUND 1ST TRIMEST Franki 06-11-2023 ULTRASOUND 1ST TRIMESTER EXAM: ULTRASOUND 1ST TRIMESTER TECHNIQUE: Transverse and longitudinal transabdominal sonographic images of the pelvis. HISTORY: THREATENED COMPARISON: 05/23/2023 __ FINDINGS: There is a single living intrauterine again seen. Age by previous ultrasound is 10 weeks 2 days with an NIELS of 01/05/2024. Interval growth appears appropriate. Subjectively, the amniotic fluid volume appears normal. cardiac activity was documented, the heart rate ranging between 173 and 174 bpm. There is no obvious significant complication. IMPRESSION: Single early living intrauterine at 10 weeks 2 days by previous ultrasound with an NIELS of 01/05/2024. Appropriate interval growth without obvious significant complication. Normal [facility] RPRR SEND OUTon 05-24-2023 Reagin Ab RPR Ql (S) Non-Reactive Normal Non Reactive [facility] Comment on above: Performed By: #### T ESTFT #### Performed for [facility] [address], [place] [address] CBC panel Auto (Bld)on 05-23 Erythrocyte distribution width (RBC) [Entitic vol] 37.2 fL Normal 36.4-46.3 [facility] Comment on above: Performed By: #### V G #### Performed for [facility] [address], [place] [address] Hematocrit (Bld) [Volume fraction] 37.2 % Normal 37.0-47.0 [facility] Comment on above: Performed By: #### V G #### Performed for [facility] [address], [place] [address] Hemoglobin (Bld) [Mass/Vol] 13.4 g/dL Normal 12.0-16.0 [facility] Comment on above: Performed By: #### V G #### Performed for [facility] [address], [place] [address] MCH (RBC) [Entitic mass] 30.8 pg Normal 27.0-31.0 [facility] Comment on above: Performed By: #### V G #### Performed for [place] [address] [place], [place] [address] MCHC (RBC) [Mass/Vol] 36.0 g/dL Normal 32.0-36.0 [facility] Comment on above: Performed By: #### V G #### Performed for [address] [address] MCV (RBC) [Entitic vol] 85.5 fL Normal 80.0-100.0 [facility] Comment on above: Performed By: #### V G #### Performed for [address] [address] Platelet mean volume (Bld) [Entitic vol] 10.3 fL Normal 9.0-13.0 [facility] Comment on above: Performed By: #### V G #### Performed for [place] [address] [place], [place] [address] Platelets (Bld) [#/Vol] 293 10*3/uL Normal 130-400 [facility] Comment on above: Performed By: #### V G #### Performed for [address] [address] RBC (Bld) [#/Vol] 4.35 10*6/uL Normal 4.00-6.30 [facility] Comment on above: Performed By: #### V G #### Performed for [place] [address] [place], [place] [address] WBC (Bld) [#/Vol] 9.05 10*3/uL Normal 4.80-10.80 [facility] Comment on above: Performed By: #### V G #### Performed for [facility] [address] [place], [place] [address] COMPREHENSIVE METABOLIC PANE Alexandru 05-23-2023 Creatinine [Mass/Vol] 0.62 mg/dL Normal 0.51-0.95 [facility] Comment on above: Performed By: #### 3 084-1, 95411-9 #### [facility] [address] [place], [place] [address] [employer] - Leny VAUGHN [id number] Performed By: #### T ESTFT #### Performed for [place] [address] [place], [place] [address] GFR/1.73 sq M.predicted MDRD (S/P/Bld) [Vol rate/Area] mL/min/{1.73_m2} Normal >=59 [facility] Comment on above: Performed By: #### 3 084-1, 87857-8 #### [facility] [address] [place] [address] [employer]y VAUGHN [id number] Performed By: #### T ESTFT #### Performed for [place] [address] [place], [place] [address] HGFR GLOMERULAR FILTRATION RATE INTERPRETATION~The eGFR is calculated using the MDRD equation.~This equation has been validated in patients with chronic kidney disease;~however, it underestimates the GFR in healthy patients with GFR's over 60 mL/min.~The equation is not valid in children under the age of 18.~NOTE: Criteria for Chronic Kidney Disease:~ ~1. Kidney damage for at least three months, as defined~by structural or functional abnormalities of the kidney,~with or without decreased glomerular filtration rate, manifested by either:~* Pathological abnormalities or~* Markers of Kidney damage, including abnormalities in~the composition of the blood or urine or abnormalities in imaging tests.~ ~2. GFR <60 mL/min/1.73 m squared for at least three months, with or without kidney damage.~ Normal [facility] Comment on above: Performed By: #### 3 084-1, 78985-1 #### [facility] [address] [place] [address] [employer] - Leny VAUGHN [id number] Performed By: #### T ESTFT #### Performed for [facility] [address] [place] [address] Comprehensive metabolic 2000 panelon 05-23-2023 Albumin [Mass/Vol] 4.0 g/dL Normal 3.4-5.0 [facility] Comment on above: Performed By: #### 3 084-1, 31203-0 #### [facility] [address] [place] [address] [employer] Leny VAUGHN [id number] ALP [Catalytic activity/Vol] 41 U/L Low 50-136 [facility] Comment on above: Performed By: #### 3 084-1, 25732-9 #### [facility] [address] [place] [address] [employer] - Leny GOODWINIA [id number] ALT [Catalytic activity/Vol] 20 U/L Normal 14-59 [facility] Comment on above: Performed By: #### 3 084-1, 02928-4 #### [facility] [address] [place] [address] [employer] - Leny GOODWINIA [id number] Anion gap [Moles/Vol] 6.0 mmol/L Normal <=15.0 [facility] Comment on above: Performed By: #### 3 084-1, 44693-8 #### [facility] [address] [place] [address] [employer] - Leny GOODWINIA [id number] AST [Catalytic activity/Vol] 11 U/L Low 15-37 [facility] Comment on above: Performed By: #### 3 084-1, 00724-1 #### [facility] [address] [place] [address] [employer] - Leny GOODWINIA [id number] Bilirubin [Mass/Vol] 0.4 mg/dL Normal 0.2-1.0 [facility] Comment on above: Performed By: #### 3 084-1, 27593-0 #### [facility] [address] [place] [address] [employer] - Leny GOODWINIA [id number] Calcium [Mass/Vol] 9.8 mg/dL Normal 8.5-10.1 [facility] Comment on above: Performed By: #### 3 084-1, 78294-1 #### [facility] [address] [place] [address] [employer] - Leny GOODWINIA [id number] Chloride [Moles/Vol] 106 mmol/L Normal 98-107 [facility] Comment on above: Performed By: #### 3 084-1, #### [facility] [address] [place] [address] [employer] - Leny Easton CLIA [id number] CO2 [Moles/Vol] 24 mmol/L Normal 21-32 [facility] Comment on above: Performed By: #### 3 084-1, 84963-2 #### [facility] [address] [place] [address] [employer] - Leny Easton CLIA [id number] Glucose [Mass/Vol] 92 mg/dL Normal 74-106 [facility] Comment on above: Performed By: #### 3 084-1, 70326-8 #### [facility] [address] [place] [address] [employer] - Leny Easton CLIA [id number] Potassium [Moles/Vol] 3.5 mmol/L Normal 3.5-5.1 [facility] Comment on above: Performed By: #### 3 084-1, 19608-0 #### [facility] [address] [place] [address] [employer] - Leny Easton CLIA [id number] Protein [Mass/Vol] 7.7 g/dL Normal 6.4-8.2 [facility] Comment on above: Performed By: #### 3 084-1, 86944-4 #### [address] [place] [address] [employer] - [facility] [id number] Sodium [Moles/Vol] 136 mmol/L Normal 136-145 [facility] Comment on above: Performed By: #### 3 084-1, 94147-2 #### [address] [place] [address] [employer] - [facility] [id number] Urea nitrogen [Mass/Vol] 12 mg/dL Normal 7-17 [facility] Comment on above: Performed By: #### 3 084-1, 36369-4 #### [address] [place] [address] [employer] - [facility] [id number] Creatinine renal clearance ( 24H U+S/P) [Vol/Time]on 05-23-2023 Creatinine (U) [Mass/Vol] 73.20 mg/dL Normal [facility] Comment on above: Performed By: #### T ESTFT #### Performed for [place] [address] HEP B SURFACE Agon HBV surface Ag Ql (S) Non-Reactive Normal NONREACTIVE [facility] Comment on above: Performed By: #### T ESTFT #### Performed for [place] [address] HHBVSAG INTERPRETATION OF RESULTS A NONREACTIVE test result means that the specimen is presumed to be negative for HBsAg. A REACTIVE test result means that the specimen is reactive for HBsAg. All reactive results will be followed up with confirmatory testing. Normal [facility] Comment on above: Performed By: #### T ESTFT #### Performed for [place] [address] HEP C Ab with REFLEX CONFIRM ATIONon 05-23-2023 HEP C Ab Non-Reactive Normal [facility] Comment on above: Performed By: #### T ESTFT #### Performed for [address] [place] [address] HHCV INTERPRETATION OF RESULTS A NONREACTIVE test result means that the specimen is presumed to be negative for Hep C Ab. A REACTIVE test result means that the specimen is reactive for Hep C Ab. All reactive results will be followed up with confirmatory testing. Normal [facility] Comment on above: Performed By: #### T ESTFT #### Performed for [place] [address] [place] [address] HIV RAPID W/CONFIRMATIONon 0 05-23-2023 HHIV INTERPRETATION OF RESULTS A NON REACTIVE test result means that HIV-1 and HIV-2 antibodies and p24 antigen have not been detected in the specimen. A REACTIVE test result means that HIV-1 and HIV-2 antibodies and/or p24 antigen have been detected in the specimen. This HIV 1,2 and p24 antigen test is a rapid screen for the presence of HIV 1 and 2 antibodies and p24 antigen. All reactive test results will be followed up with confirmatory testing. Normal [facility] Comment on above: Performed By: #### H IVRAP #### [place] [address] [place] [address] [employer] - [employer]y VAUGHN [id number] HIV 1+2 Ab Ql (S) Non-Reactive Normal NON REACTIVE [facility] Comment on above: Performed By: #### H IVRAP #### [place] [address] [place] [address] [employer] - Leny VAUGHN [id number] Non-Reactive Normal NON REACTIVE [facility] Comment on above: Performed By: #### H IVRAP #### [place] [address] [place] [address] [employer] - Leny GOODWINIA [id number] Protein (24H U) [Mass/Time]o n 05-23-2023 Protein (U) [Mass/Vol] 8 mg/dL Normal <=12 [facility] Comment on above: Performed By: #### V G #### Performed for [place] [address] [place] [address] RUBELLA Ab IgGon 05-23-2023 Rubella virus IgG IA Ql 89.1 IU/mL Normal [facility] Comment on above: Performed By: #### V G #### Performed for [facility] [address] [place], [place] [address] Rubella virus IgG IA Qlon HRUBELLA RUBELLA IgG INTERPRETATION <5.0 IU/mL Non-immune 5.0-9.9 IU/mL Equivocal >10.0 IU/mL Immune Normal [facility] Comment on above: Performed By: #### V G #### Performed for [facility] [address] [place], [place] [address] URIC ACIDon 05-23-2023 Urate [Mass/Vol] 4.8 mg/dL Normal 2.6-6.0 [facility] Comment on above: Performed By: #### 3 084-1, 57858-2 #### [place] [address] [place], [place] [address] [employer] - Leny VAUGHN [id number] URINE CREATININE CLEARANCE 2 4 HRon 05-23-2023 Creatinine renal clearance (24H U+S/P) [Vol/Time] 143 mL/min High 88-128 [facility] Comment on above: Performed By: #### T ESTFT #### Performed for [place] [address] [place], [place] [address] Specimen volume (24H U) 2 L Normal [facility] Comment on above: Performed By: #### T ESTFT #### Performed for [facility] [address] [place], [place] [address] Performed By: #### V G #### Performed for [place] [address] [place], [place] [address] URINE PROTEIN 24 HRon 2023 Protein (24H U) [Mass/Time] 150 mg/24 Hours Normal 42-225 [facility] Comment on above: Performed By: #### V G #### Performed for [facility] [address] [place], [place] [address] URINE PROTEIN to CREAT RATIO RANDOMon 05-23-2023 Creatinine (U) [Mass/Vol] 36.50 mg/dL Normal [facility] Comment on above: Performed By: #### V G #### Performed for [facility] [address] [place], [place] [address] Protein Ql (U) <5 Normal <=12 [facility] Comment on above: Performed By: #### V G #### Performed for [facility] [address] [place], [place] [address] URINE MS/CR RATIO Normal N/A-0.2 [facility] Comment on above: Performed By: #### V G #### Performed for [facility] [address] [place], [place] [address] VARICELLA-ZOSTER IgGon 05-23 HVARZOSG VARICELLA-ZOSTER IgG INTERPRETATION TV < 0.60 Negative 0.60 /= 0.90 Positive Normal [facility] Comment on above: Performed By: #### T ESTFT #### Performed for [facility] [address] [place], [place] [address] VARICELLA-ZOSTER IgG 1.40 IU/mL Normal [facility] Comment on above: Performed By: #### T ESTFT #### Performed for [facility] [address] [place], [place] [address] CHLAM GONORRHEA and TRICH NA Aon 05-18-2023 Chlamydia by GABRIELA Negative Normal Negative [facility] Comment on above: Performed By: #### V G #### Performed for [facility] [address], [place] [address] Gonococcus by GABRIELA Negative Normal Negative [facility] Comment on above: Performed By: #### V G #### Performed for [facility] [address] [place], [place] [address] Trich vag by GABRIELA Negative Normal Negative [facility] Comment on above: Performed By: #### V G #### Performed for [facility] [address] [place], [place] [address] CULTURE URINEon 05-14-2023 CULTURE URINE NO PATHOGENS GROWN AFTER 2 DAYS Normal [facility] Comment on above: Performed By: #### P ROGEST, PROLAC, ESTROG, FSH #### Performed for [facility] [address] [place], [place] [address] Cardiac echo study Procedure Ordered By: Jaxson Odom on 05-06-2023 Ao ASC index 1.38 cm/[facility]2 [facility] Work Phone: Ao peak rafia 1.60 m/s [facility] Work Phone: Ao SOV index 1.27 cm/m2 [facility] Work Phone: Ao STJ index 1.06 cm/m2 [facility] Work Phone: Ao VTI 31.29 cm [facility] Work Phone: Ascending aorta 2.70 cm [facility] Work Phone: AV LVOT peak gradient 7 mmHg [facility] Work Phone: AV mean gradient 5 mmHg [facility] Work Phone: AV peak gradient 10 mmHG [facility] Work Phone: AV valve area 2.28 cm2 [facility] Work Phone: AV Velocity Ratio 0.80 [facility] Work Phone: RUSTY (continuity Vmax) 2.06 cm2 [facility] Work Phone: RUSTY (continuity VTI) 2.28 cm2 [facility] Work Phone: RUSTY index (continuity Vmax) 1.05 m/s [facility] Work Phone: RUSTY index (continuity VTI) 1.16 cm2/m2 [facility] Work Phone: Avg e' pk rafia 0.17 m/s [facility] Work Phone: Avg E/e' ratio 9.72 [facility] Work Phone: Body surface area Derived from formula 1.96 m2 [facility] Work Phone: BP EF 57 % [facility] Work Phone: DI (Vmax) 0.80 [facility] Work Phone: DI (VTI) 0.89 m/2 [facility] Work Phone: E wave decelartion time 215.66 msec [facility] Work Phone: e' lateral pk rafia 0.1882 m/[facility]: e' lateral pk rafia 0.19 m/s [facility] Work Phone: e' septal pk rafia 0.1528 m/s [facility] Work Phone: e' septal pk rafia 0.15 m/s [facility] Work Phone: E/A ratio 2.41 [facility] Work Phone: E[facility]e' [facility] E/e' septal [facility] 10.73 [facility] Work Phone: EF SP 2CH 58 [facility] Work Phone: EF SP 4CH 57 [facility] Work Phone: EST RAP 3.00 mmHg [facility] Work Phone: EST RVSP 20 mmHg [facility] Work Phone: FS 28 % 28 - 44 % [facility] Work Phone: IVC ostium 1.12 cm [facility] Work Phone: IVS 0.97 cm [facility] Work Phone: LA AREA 2CH 13.52 cm2 [facility] Work Phone: LA area 4CH 12.55 cm2 [facility] Work Phone: LA ESV BP (MOD) 30 mL [facility] Work Phone: LA ESV BP (MOD) index 15 mL/m2 [facility] Work Phone: LA ESV SP 2CH (MOD) 33 mL [facility] Work Phone: LA ESV SP 4CH (MOD) 27 mL [facility] Work Phone: LA size 2.89 cm [facility] Work Phone: LEFT ATRIAL DIAMETER INDEX 1.47 cm/m2 [facility] Work Phone: LV EDV BP 86 mL [facility] Work Phone: LV EDV SP 2CH 78 mL [facility] Work Phone: LV EDV SP 4CH 94 mL [facility] Work Phone: LV ESV BP 37 mL [facility] Work Phone: LV ESV SP 2CH 33 mL [facility] Work Phone: LV ESV SP 4CH 40 mL [facility] Work Phone: LV mass 106.97 g [facility] Work Phone: LV Mass Index 54.6 g/m2 [facility] Work Phone: LV RWT 0.48 [facility] Work Phone: LV stroke volume BP (ml) 49 mL [facility] Work Phone: LV stroke volume index BP 25.00 mL/m2 [facility] Work Phone: LVIDD 3.79 cm [facility] Work Phone: LVIDS 2.73 cm [facility] Work Phone: LVOT area 2.57 cm2 [facility] Work Phone: LVOT diameter 1.81 cm [facility] Work Phone: LVOT peak rafia 1.28 m/s [facility] Work Phone: LVOT peak VTI 27.76 cm [facility] Work Phone: LVOT stroke volume 71 cm3 [facility] Work Phone: LVOT stroke volume index 36.42 ml/m2 [facility] Work Phone: MV pk A rafia 0.68 m/s [facility] Work Phone: MV pk E rafia 1.64 m/s [facility] Work Phone: MV stenosis pressure 1/2 time 62.54 ms [facility] Work Phone: MV valve area p 1/2 method 3.52 cm2 [facility] Work Phone: [facility] AV VTI RATIO PRE STRESS 0.89 [facility] Work Phone: OSU ECHO LV BIPLANE SYSTOLIC VOLUME INDEX 18.88 mL/m2 [facility] Work Phone: OSU ECHO LV BP DIASTOLIC VOLUME INDEX 43.88 mL/m2 [facility] Work Phone: [facility] RVOT VTI RATIO 0.[address] [facility] Work Phone: PV mean gradient 3 mmHg [facility] Work Phone: PV peak gradient 6 mmHg [facility] Work Phone: PV PK RAFIA 1.18 m/s [facility] Work Phone: PV VTI 24.23 cm [facility] Work Phone: PW 0.91 cm [facility] Work Phone: RA area 4CH (MOD) 10.03 cm2 [facility] Work Phone: RA vol index 4CH (MOD) 9.69 mL/m2 [facility] Work Phone: Right atrium volume 4 chamber method of disks 19 mL [facility] Work Phone: RV Area diastolic 13.11 cm2 [facility] Work Phone: RV Area systolic 7.99 cm2 [facility] Rehabilitation Work Phone: RV basal diam 2.69 cm [facility] Work Phone: RV Fractional area change 39.1 % [facility] Work Phone: RV long diam 8.36 cm [facility] Work Phone: RV mid diam 1.99 cm [facility] Work Phone: RV S' 14.30 cm/s [facility] Work Phone: RVOT peak gradient [address] [facility] Work Phone: RVOT peak rafia 0.84 m/s [facility] Work Phone: RVOT [facility]: Sinus 2.49 [facility] Work Phone: STJ 2.08 [facility] Work Phone: Stroke Volume 71 cm/mL [facility] Work Phone: Stroke volume index 36 [facility] Work Phone: TAPSE 3.00 [facility] Work Phone: TR pk grad 17 mmHg [facility] Work Phone: TR pk rafia 2.04 m/s [facility] Work Phone: [facility] Work Phone: Cardiac echo study Procedure on 05-06-2023 Left Ventricle: Chamber size is normal. Normal wall thickness. Normal global systolic function. Regional wall motion is normal. Ejection fraction is normal (57%). Diastolic function is normal. Right Ventricle: Chamber size is normal. Systolic function is normal. No hemodynamically significant valve disease. Left Ventricle Chamber size is normal. Normal wall thickness. Normal global systolic function. Regional wall motion is normal. The ejection fraction is 57%. Ejection fraction is normal (55 - 60%). Diastolic function is normal. Right Ventricle Chamber size is normal. Systolic function is normal. Left Atrium Chamber size is normal. Right Atrium Chamber size is normal. Mitral Valve Normal appearing leaflets. Leaflet mobility is normal. No regurgitation. No valve stenosis. Tricuspid Valve Normal leaflets. Leaflet mobility is normal. Trace regurgitation. No stenosis. Estimated right ventricular systolic pressure is 20 mmHg. Aortic Valve Trileaflet valve. Leaflet mobility is normal. No regurgitation. No stenosis. Pulmonic Valve Normal structure. No regurgitation. No stenosis. Pericardium Appears normal. No pericardial effusion. Septum The atrial septum is normal. Aorta No dilation to extent seen. Study Details A complete echocardiography study was performed. Study limitations include technically difficult study. Imaging system used: Siemens. Indications Indications for study: stroke/tia. Wall Scoring Score Index: 1.00 The left ventricular wall motion is normal. [facility] Radiology Study observation (narrative) [facility] ECHOCARDIOGRAMon 05-06-2023 Echocardiography ? Left Ventricle: Chamber size is normal. Normal wall thickness. Normal global systolic function. Regional wall motion is normal. Ejection fraction is normal (57%). Diastolic function is normal. ? Right Ventricle: Chamber size is normal. Systolic function is normal. ? No hemodynamically significant valve disease. Table formatting from the original result was not included. Images from the original result were not included. Patient Information Patient Name Clarisa De La Cruz Legal Sex Female Indication for Exam Priority: Routine Dx: TIA (transient ischemic attack) [G45.9 (ICD-10-CM)] Comments: Results to Neurology service. Interpretation Summary ? Left Ventricle: Chamber size is normal. Normal wall thickness. Normal global systolic function. Regional wall motion is normal. Ejection fraction is normal (57%). Diastolic function is normal. ? Right Ventricle: Chamber size is normal. Systolic function is normal. ? No hemodynamically significant valve disease. Findings Left Ventricle Chamber size is normal. Normal wall thickness. Normal global systolic function. Regional wall motion is normal. The ejection fraction is 57%. Ejection fraction is normal (55 - 60%). Diastolic function is normal. Right Ventricle Chamber size is normal. Systolic function is normal. Left Atrium Chamber size is normal. Right Atrium Chamber size is normal. Septum The atrial septum is normal. Mitral Valve Normal appearing leaflets. Leaflet mobility is normal. No regurgitation. No valve stenosis. Aortic Valve Trileaflet valve. Leaflet mobility is normal. No regurgitation. No stenosis. Tricuspid Valve Normal leaflets. Leaflet mobility is normal. Trace regurgitation. No stenosis. Estimated right ventricular systolic pressure is 20 mmHg. Pulmonic Valve Normal structure. No regurgitation. No stenosis. Aorta No dilation to extent seen. Pericardium Appears normal. No pericardial effusion. Reading Providers Reading Role Read Date EVERTON Abebe Echo Elbert 05/06/2023 Wall Scoring Score Index: 1.00 The left ventricular wall motion is normal. Left Heart Measurements LV - Systole LVIDD 3.79 cm IVS 0.97 cm LVIDS 2.73 cm PW 0.91 cm LV RWT 0.48 LV Mass Index 54.6 g/m2 LV EDV BP 86 mL LV ESV BP 37 mL BP EF 57 % LV stroke volume BP (ml) 49 mL LV stroke volume index BP 25 mL/m2 LV - Diastole MV pk E rafia 1.64 m/s MV pk A rafia 0.68 m/s E/A ratio 2.41 e' septal pk rafia 0.15 m/s e' lateral pk rafia 0.19 m/s Avg e' pk rafia 0.17 m/s E/e' septal ratio 10.73 E/e' lateral ratio 8.71 Avg E/e' ratio 9.72 LV - HCM AV LVOT peak gradient 7 mmHg Left Atrium LA size 2.89 cm LA ESV SP 4CH (MOD) 27 mL LA ESV SP 2CH (MOD) 33 mL LA ESV BP (MOD) index 15 mL/m2 Right Heart Measurements RV - 2D RV basal diam 2.69 cm RV mid diam 1.99 cm RV long diam 8.36 cm RV Area diastolic 13.11 cm2 RV Area systolic 7.99 cm2 RV Fractional area change 39.1 % RV - Doppler TAPSE 3 cm RV S' 14.3 cm/s Right Atrium RA vol index 4CH (MOD) 9.69 mL/m2 EST RAP 3 mmHg RA area 4CH (MOD) 10.03 cm2 Great Vessels Aortic Root - End Diastolic Sinus 2.49 cm STJ 2.08 cm Ascending aorta 2.7 cm Inferior Vena Cava IVC ostium 1.12 cm Doppler Measurements - Aortic Valve Stenosis LVOT diameter 1.81 cm LVOT area 2.57 cm2 LVOT peak rafia 1.28 m/s LVOT peak VTI 27.76 cm Stroke Volume 71 cm/mL Stroke volume index 36 Ao peak rafia 1.6 m/s Ao VTI 31.29 cm AV peak gradient 10 mmHG AV mean gradient 5 mmHg DI (VTI) 0.89 m/2 DI (Vmax) 0.8 RUSTY (continuity Vmax) 2.06 cm2 RUSTY index (continuity Vmax) 1.05 m/s RUSTY (continuity VTI) 2.28 cm2 RUSTY index (continuity VTI) 1.16 cm2/m2 LVOT stroke volume 71 cm3 LVOT stroke volume index 36.42 ml/m2 Doppler Measurements - Mitral Valve Stenosis MV pk E rafia 1.64 m/s MV pk A rafia 0.68 m/s E/A ratio 2.41 MV stenosis pressure 1/2 time 62.54 ms MV valve area p 1/2 method 3.52 cm2 PISA-MS MV pk E rafia 1.64 m/s Doppler Measurements - Tricuspid Valve Stenosis IVC ostium 1.12 cm Regurgitation TR pk rafia 2.04 m/s TR pk grad 17 mmHg EST RAP 3 mmHg EST RVSP 20 mmHg Doppler Measurements - Pulmonic Valve Stenosis PV PK RAFIA 1.18 m/s PV VTI 24.23 cm PV peak gradient 6 mmHg PV mean gradient 3 mmHg RVOT peak rafia 0.84 m/s RVOT peak VTI 20.91 cm RVOT peak gradient 3 mmHg Vitals Height Weight BSA (Calculated - sq m) BP Pulse 1.727 m (5' 7.99) 82.6 kg (182 lb 1.6 oz) 1.96 m2 112/75 Performing Staff Vanda Mora RDCS Study Details A complete echocardiography (more content not included)... Normal [facility] CHEM 7 (LYTES,BUN,CREA,GLUC) on 04-24-2023 Anion gap [Moles/Vol] 11 mmol/L Normal 7- [facility] Comment on above: Performed By: #### C HM7 #### [facility] (DEFAULT) [address] [address] Chloride [Moles/Vol] 106 mmol/L Normal 98-108 [facility] Comment on above: Performed By: #### C HM7 #### [facility] (DEFAULT) [address] [address] CO2 [Moles/Vol] 23 mmol/L Normal 21-31 [facility] Comment on above: Performed By: #### C HM7 #### [facility] (DEFAULT) [address] [place] [address] Creatinine [Mass/Vol] 0.79 mg/dL Normal 0.50-1.20 [facility] Comment on above: Performed By: #### C HM7 #### [facility] (DEFAULT) [address] [place] [address] eGFR, CKD-EPI, Female > Normal >=60 [facility] Comment on above: Result Comment: Repo rted eGFR is based on the CKD-EPI 2020 equation using creatinine, age, and sex. Performed By: #### C HM7 #### [facility] (DEFAULT) [address] [place] [address] Glucose [Mass/Vol] 100 mg/dL High 70-99 [facility] Comment on above: Performed By: #### C HM7 #### [facility] (DEFAULT) [address] [place] [address] Osmolality [Osmolality] 285 mosm/kg Normal 278-305 [facility] Comment on above: Performed By: #### C HM7 #### [facility] (DEFAULT) [address] [place] [address] Potassium [Moles/Vol] 3.7 mmol/L Normal 3.5-5.0 [facility] Comment on above: Performed By: #### C HM7 #### [facility] (DEFAULT) [address] [place] [address] Sodium [Moles/Vol] 136 mmol/L Normal 135-145 [facility] Comment on above: Performed By: #### C HM7 #### [facility] (DEFAULT) [address] [place] [address] Urea nitrogen [Mass/Vol] 13 mg/dL Normal 7-25 [facility] Comment on above: Performed By: #### C HM7 #### [facility] (DEFAULT) [address] [place] [address] Urea nitrogen/Creatinine [Mass ratio] 16 mg/mg Normal [facility] Comment on above: Performed By: #### C HM7 #### [facility] (DEFAULT) [address] [place] [address] Anion gap [Moles/Vol] 11 mmol/L 7 - 17 mmol/L [facility] Chloride [Moles/Vol] 106 mmol/L 98 - 108 mmol/L [facility] CO2 [Moles/Vol] 23 mmol/L 21 - 31 mmol/L [place] Creatinine [Mass/Vol] 0.79 mg/dL 0.50 - 1.20 mg/dL [facility] eGFR, CKD-EPI, Female - PINF [facility] Comment on above: Reported eGFR is bas ed on the CKD-EPI 2020 equation using creatinine, age, and sex. Glucose [Mass/Vol] 100 mg/dL High 70 - 99 mg/dL [facility] Interpretation and review of laboratory results Abnormal [facility] Osmolality Calc [Osmolality] 285 [facility] Potassium [Moles/Vol] 3.7 mmol/L 3.5 - 5.0 mmol/L [facility] Sodium [Moles/Vol] 136 mmol/L 135 - 145 mmol/L [facility] Urea nitrogen [Mass/Vol] 13 mg/dL 7 - 25 mg/dL [facility] Urea nitrogen/Creatinine [Mass ratio] 16 mg/mg [facility] HEMOGLOBIN A1Con 04-24-2023 Average glucose Estimated from glycated hemoglobin (Bld) [Mass/Vol] 103 mg/dL [facility] HbA1c (Bld) [Mass fraction] 5.2 % 4.7 - 5.6 % [facility] LT BLUE TOP TUBEon [facility] MR Brain WO contraston 04-24 IMPRESSION: No evidence of acute infarct or mass effect. OLOGY EXAM: MRI BRAIN WITHOUT CONTRAST, 04/24/2023 00:51 AM COMPARISON: No priors available for comparison. CLINICAL INDICATIONS: 33 years Female Transient ischemic attack (TIA); RELEVANT CLINICAL HISTORY: TECHNIQUE: A series of multisequence, multiplanar images of the brain are obtained without intravenous contrast. Study was performed at 1.5 Yenni. FINDINGS: There is a small focus of T2/FLAIR hyperintense focus in the subcortical right frontal lobe which is nonspecific and could be incidental related to previous inflammation or sequelae of migraines. No evidence of edema. No evidence of mass lesion. No evidence of hemorrhage. No diffusion restriction or evidence of acute infarct is identified. No extracerebral collection. Sellar and parasellar structures are unremarkable. 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 Posterior fossa is unremarkable. Ventricles and sulci are within normal limits. There is a cavum vergae. Extracranial structures are unremarkable. RADIOLOGY Shameka Cobb MD - 04/24/2023 EXAM: MRI BRAIN WITHOUT CONTRAST, 04/24/2023 00:51 AM COMPARISON: No priors available for comparison. CLINICAL INDICATIONS: 33 years Female Transient ischemic attack (TIA); RELEVANT CLINICAL HISTORY: TECHNIQUE: A series of multisequence, multiplanar images of the brain are obtained without intravenous contrast. Study was performed at 1.5 Yenni. FINDINGS: There is a small focus of T2/FLAIR hyperintense focus in the subcortical right frontal lobe which is nonspecific and could be incidental related to previous inflammation or sequelae of migraines. No evidence of edema. No evidence of mass lesion. No evidence of hemorrhage. No diffusion restriction or evidence of acute infarct is identified. No extracerebral collection. Sellar and parasellar structures are unremarkable. 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 Posterior fossa is unremarkable. Ventricles and sulci are within normal limits. There is a cavum vergae. Extracranial structures are unremarkable. IMPRESSION IMPRESSION: No evidence of acute infarct or mass effect. [facility] Radiology Study observation (narrative) [facility] MR Brain WO contrastOrdered By: Shameka Cobb on 04-24-2023 [facility] Work Phone: MRI BRAIN WITHOUT CONTRASTon 04-24-2023 MRI BRAIN WITHOUT CONTRAST EXAM: MRI BRAIN WITHOUT CONTRAST, 04/24/2023 00:51 AM COMPARISON: No priors available for comparison. CLINICAL INDICATIONS: 33 years Female Transient ischemic attack (TIA); RELEVANT CLINICAL HISTORY: TECHNIQUE: A series of multisequence, multiplanar images of the brain are obtained without intravenous contrast. Study was performed at 1.5 Yenni. FINDINGS: There is a small focus of T2/FLAIR hyperintense focus in the subcortical right frontal lobe which is nonspecific and could be incidental related to previous inflammation or sequelae of migraines. No evidence of edema. No evidence of mass lesion. No evidence of hemorrhage. No diffusion restriction or evidence of acute infarct is identified. No extracerebral collection. Sellar and parasellar structures are unremarkable. 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 Posterior fossa is unremarkable. Ventricles and sulci are within normal limits. There is a cavum vergae. Extracranial structures are unremarkable. IMPRESSION: No evidence of acute infarct or mass effect. Normal [facility] PT,INR,PTTon 04-24-2023 aPTT Coag (Bld) [Time] 30.7 s Normal 24.0-34.3 [facility] Comment on above: Performed By: #### P TPTT #### [facility] (DEFAULT) [address] [place] [address] INR Coag (PPP) [Relative time] 1.0 {INR} Normal 0.9-1.1 [facility] Comment on above: Performed By: #### P TPTT #### [facility] (DEFAULT) [address] [place] [address] PT Coag (PPP) [Time] 13.3 s Normal 11.9-14.2 [facility] Comment on above: Performed By: #### P TPTT #### [facility] (DEFAULT) [address] [address] aPTT Coag (PPP) [Time] 30.7 s [facility] INR Coag (Bld) [Relative time] 1.0 {INR} 0.9 - 1.1 [facility] Interpretation and review of laboratory results Normal [facility] PT Coag (PPP) [Time] 13.3 s [facility] BETA HCG, QUANT, BLOODon HCG (Quant) Serum 22.5 mIU/mL Normal [facility] Comment on above: Result Comment: Non- : <10 mIU/mL Postmenopause: <10 mIU/mL Male: <10 mIU/mL FEMALE GESTATIONAL AGE 2-4 Weeks: 39.1-8,388 mIU/mL 5-6 Weeks: 861-88,769 mIU/mL 6-8 Weeks: 8,636-218,085 mIU/mL 8-10 Weeks: 18,700-244,467 mIU/mL 10-12 Weeks: 23,143-181,899 mIU/mL 13-27 Weeks: 6,303-97,171 mIU/mL 24-40 Weeks: 4,360-74,883 mIU/mL Test results cannot be interpreted as absolute evidence for the presence or absence of malignant disease. Performed By: #### H YASMINE, MGO, C7ED, QHCGB #### [facility] (DEFAULT) [address] [address] CBC AND ELECTRONIC DIFFon Basophils (Bld) [#/Vol] 0.04 10*3/uL Normal 0.00-0.15 [facility] Comment on above: Performed By: #### John 1CB, [id number] #### [facility] (DEFAULT) [address] [address] Basophils/100 WBC (Bld) 0.5 % Normal [facility] Comment on above: Performed By: #### John 1CB, [id number] #### [facility] (DEFAULT) [address] [place] [address] DIFF STATUS Electronic Differential Normal [facility] Comment on above: Performed By: #### John 1CB, [id number] #### [facility] (DEFAULT) [address] [place] [address] Eosinophils (Bld) [#/Vol] 0.33 10*3/uL Normal 0.00-0.42 [facility] Comment on above: Performed By: #### John 1CB, [id number] #### [facility] (DEFAULT) [address] [place] [address] Eosinophils/100 WBC (Bld) 3.8 % Normal [facility] Comment on above: Performed By: #### John 1CB, [id number] #### [facility] (DEFAULT) [address] [place] [address] Hematocrit (Bld) [Volume fraction] 43.7 % Normal 34.9-44.3 [facility] Comment on above: Performed By: #### John 1CB, [id number] #### [facility] (DEFAULT) [address] [place] [address] Hemoglobin (Bld) [Mass/Vol] 14.5 g/dL Normal 11.4-15.2 [facility] Comment on above: Performed By: #### John 1CB, [id number] #### [facility] (DEFAULT) [address] [place] [address] Immature Grans % 0.1 % Normal [facility] Comment on above: Performed By: #### John 1CB, [id number] #### [facility] (DEFAULT) [address] [place] [address] Immature Grans Absolute < Normal <=0.08 [facility] Comment on above: Performed By: #### John 1CB, [id number] #### [facility] (DEFAULT) [address] [place] [address] Lymphocytes (Bld) [#/Vol] 2.17 10*3/uL Normal 1.16-3.51 [facility] Comment on above: Performed By: #### A 1CB, [id number] #### [facility] (DEFAULT) [address] [place] [address] Lymphocytes/100 WBC (Bld) 25.0 % Normal [facility] Comment on above: Performed By: #### A 1CB, [id number] #### [facility] (DEFAULT) [address] [place] [address] MCV (RBC) [Entitic vol] 89.4 fL Normal 79.6-97.7 [facility] Comment on above: Performed By: #### A 1CB, [id number] #### [facility] (DEFAULT) [address] [address] Mean Cell Hgb 29.7 pg Normal 25.9-33.9 [facility] Comment on above: Performed By: #### John 1CB, [id number] #### [facility] (DEFAULT) [address] [address] Mean Cell Hgb Conc 33.2 g/dL Normal 31.4-35.9 [facility] Comment on above: Performed By: #### John 1CB, [id number] #### [facility] (DEFAULT) [address] [address] Monocytes (Bld) [#/Vol] 0.69 10*3/uL Normal 0.22-0.87 [facility] Comment on above: Performed By: #### A 1CB, [id number] #### [facility] (DEFAULT) [address] [address] Monocytes/100 WBC (Bld) 8.0 % Normal [facility] Comment on above: Performed By: #### A 1CB, [id number] #### [facility] (DEFAULT) [address] [address] Nucleated RBC 0.0 /100 WBC Normal <=0.2 [facility] Comment on above: Performed By: #### John 1CB, [id number] #### [facility] (DEFAULT) [address] [place] [address] Platelet mean volume (Bld) [Entitic vol] 10.5 fL Normal 8.5-12.2 [facility] Comment on above: Performed By: #### John 1CB, [id number] #### [facility] (DEFAULT) [address] [place] [address] Platelets (Bld) [#/Vol] 297 10*3/uL Normal 150-393 [facility] Comment on above: Performed By: #### John 1CB, [id number] #### [facility] (DEFAULT) [address] [place] [address] RBC (Bld) [#/Vol] 4.89 10*6/uL Normal 3.91-5.04 [facility] Comment on above: Performed By: #### John WHITE, [id number] #### [facility] (DEFAULT) [address] [place] [address] RBC Distribution 11.9 % Normal 10.8-14.9 [facility] Comment on above: Performed By: #### John WHITE, [id number] #### [facility] (DEFAULT) [address] [place] [address] Segs + Bands Auto 62.6 % Normal [facility] Comment on above: Performed By: #### John 1CB, [id number] #### [facility] (DEFAULT) [address] [place] [address] Segs + Bands,Absolute Auto 5.43 K/uL Normal 1.64-7.28 [facility] Comment on above: Performed By: #### John 1CB, [id number] #### [facility] (DEFAULT) [address] [place] [address] WBC (Bld) [#/Vol] 8.67 10*3/uL Normal 3.99-11.19 [facility] Comment on above: Performed By: #### John 1CB, [id number] #### [facility] (DEFAULT) [address] [place] [address] Basophils (Bld) [#/Vol] 0.04 10*3/uL 0.00 - 0.15 K/uL [facility] Basophils/100 WBC (Bld) 0.5 % [facility] Differential cell count method Nom (Bld) Electronic Differential [facility] Eosinophils (Bld) [#/Vol] 0.33 10*3/uL 0.00 - 0.42 K/uL [facility] Eosinophils/100 WBC (Bld) 3.8 % [facility] Erythrocyte distribution width (RBC) [Ratio] 11.9 % 10.8 - 14.9 % [facility] Hematocrit (Bld) [Volume fraction] 43.7 % 34.9 - 44.3 % [facility] Hemoglobin (Bld) [Mass/Vol] 14.5 g/dL 11.4 - 15.2 g/dL [facility] Immature granulocytes (Bld) [#/Vol] K/uL NINF - 0.08 K/uL [facility] Immature granulocytes/100 WBC (Bld) 0.1 % [facility] Lymphocytes (Bld) [#/Vol] 2.17 10*3/uL 1.16 - 3.51 K/uL [facility] Lymphocytes/100 WBC (Bld) 25.0 % [facility] MCH (RBC) [Entitic mass] 29.7 pg 25.9 - 33.9 pg [facility] MCHC (RBC) [Mass/Vol] 33.2 g/dL 31.4 - 35.9 g/dL [facility] MCV (RBC) [Entitic vol] 89.4 fL 79.6 - 97.7 fL [facility] Monocytes (Bld) [#/Vol] 0.69 10*3/uL 0.22 - 0.87 K/uL [facility] Monocytes/100 WBC (Bld) 8.0 % [facility] Neutrophils (Bld) [#/Vol] 5.43 10*3/uL 1.64 - 7.28 K/uL [facility] Nucleated RBC/100 WBC (Bld) [Ratio] 0.0 % NINF [facility] Platelet mean volume (Bld) [Entitic vol] 10.5 fL 8.5 - 12.2 fL [facility] Platelets (Bld) [#/Vol] 297 10*3/uL 150 - 393 K/uL [facility] RBC (Bld) [#/Vol] 4.89 10*6/uL [place] Segmented neutrophils/100 WBC (Bld) 62.6 % [facility] WBC (Bld) [#/Vol] 8.67 10*3/uL 3.99 - 11. 19 K/uL [facility] CBC W Auto Differential pane l (Bld)on 04-23-2023 Basophils (Bld) [#/Vol] 0.04 10*3/uL Normal <=0.70 [facility] Comment on above: Performed By: #### 5 7021-8 #### [facility] [address] [place] [address] [employer] - Leny GOODWINIA [id number] Basophils/100 WBC (Bld) 0.5 % Normal <=2.0 [facility] Comment on above: Performed By: #### 5 7021-8 #### [facility] [address] [place] [address] [employer] - Leny Easton CLIA [id number] Eosinophils (Bld) [#/Vol] 0.27 10*3/uL Normal <=0.70 [facility] Comment on above: Performed By: #### 5 7021-8 #### [facility] [address] [place] [address] [employer] - Leny Easton CLIA [id number] Eosinophils/100 WBC (Bld) 3.3 % Normal <=10.0 [facility] Comment on above: Performed By: #### 5 7021-8 #### [place] [address] [place] [address] [employer] - Leny GOODWINIA [id number] Erythrocyte distribution width (RBC) [Entitic vol] 38.9 fL Normal 36.4-46.3 [facility] Comment on above: Performed By: #### 5 7021-8 #### [facility] [address] [place], [place] [address] [place] [address] [employer] - Leny Easton CLIA [id number] Hematocrit (Bld) [Volume fraction] 41.2 % Normal 37.0-47.0 [facility] Comment on above: Performed By: #### 5 7021-8 #### [address] [place] [address] [employer] Consultant - Leny GOODWINIA [id number] Hemoglobin (Bld) [Mass/Vol] 14.2 g/dL Normal 12.0-16.0 [facility] Comment on above: Performed By: #### 5 7021-8 #### [address] [place] [address] [employer] Consultant - Leny Easton CLIA [id number] Immature granulocytes (Bld) [#/Vol] 0.03 10*3/uL Normal <=0.10 [facility] Comment on above: Performed By: #### 5 7021-8 #### [address] [place] [address] [employer] Consultant - Leny Easton CLIA [id number] Immature granulocytes/100 WBC (Bld) 0.40 % Normal <=1.50 [facility] Comment on above: Performed By: #### 5 7021-8 #### [address] [facility] [place] [address] [employer] Consultant - Leny Easton CLIA [id number] Lymphocytes (Bld) [#/Vol] 1.45 10*3/uL Normal 1.20-3.40 [facility] Comment on above: Performed By: #### 5 7021-8 #### [address] [facility] [place] [address] [employer] Consultant - Leny Easton CLIA [id number] Lymphocytes/100 WBC (Bld) 17.5 % Low 20.0-40.0 [facility] Comment on above: Performed By: #### 5 7021-8 #### [place] [address] [facility]. [place] [address] [employer] Consultant - Leny GOODWINIA [id number] MCH (RBC) [Entitic mass] 30.4 pg Normal 27.0-31.0 [facility] Comment on above: Performed By: #### 5 7021-8 #### [address] [place] [address] [employer] Consultant - Leny VAUGHN [id number] MCHC (RBC) [Mass/Vol] 34.5 g/dL Normal 32.0-36.0 [facility] Comment on above: Performed By: #### 5 7021-8 #### [address] [place] [address] [employer] Consultant - Leny GOODWINIA [id number] MCV (RBC) [Entitic vol] 88.2 fL Normal 80.0-100.0 [facility] Comment on above: Performed By: #### 5 7021-8 #### [address] [place] [address] [employer] Consultant - Leny GOODWINIA [id number] Monocytes (Bld) [#/Vol] 0.61 10*3/uL High 0.10-0.60 [facility] Comment on above: Performed By: #### 5 7021-8 #### [address] [place] [address] [employer] Consultant - Leny GOODWINIA [id number] Monocytes/100 WBC (Bld) 7.4 % Normal <=8.0 [facility] Comment on above: Performed By: #### 5 7021-8 #### [address] [place] [address] [employer] Consultant - Leny GOODWINIA [id number] Neutrophils (Bld) [#/Vol] 5.89 10*3/uL Normal 1.40-6.50 [facility] Comment on above: Performed By: #### 5 7021-8 #### [facility] [address] [place] [address] [employer] Consultant - Leny GOODWINIA [id number] Neutrophils/100 WBC (Bld) 70.9 % High 50.0-70.0 [facility] Comment on above: Performed By: #### 5 7021-8 #### [address] [place] [address] [employer] Consultant - Leny GOODWINIA [id number] Nucleated RBC (Bld) [#/Vol] 0.00 10*3/uL Normal <=0.10 [facility] Comment on above: Performed By: #### 5 7021-8 #### [address] [place] [address] [employer] Consultant - Leny VAUGHN [id number] Platelet mean volume (Bld) [Entitic vol] 10.5 fL Normal 9.0-13.0 [facility] Comment on above: Performed By: #### 5 7021-8 #### [address] [place] [address] [employer] Consultant - Leny GOODWINIA [id number] Platelets (Bld) [#/Vol] 270 10*3/uL Normal 130-400 [facility] Comment on above: Performed By: #### 5 7021-8 #### [address] [place] [address] [employer] Consultant - Leny GOODWINIA [id number] RBC (Bld) [#/Vol] 4.67 10*6/uL Normal 4.00-6.30 [facility] Comment on above: Performed By: #### 5 7021-8 #### [address] [place] [address] [employer] Consultant - Leny GOODWINIA [id number] WBC (Bld) [#/Vol] 8.29 10*3/uL Normal 4.80-10.80 [facility] Comment on above: Performed By: #### 5 7021-8 #### [place] [address] [place] [address] [employer] Consultant - Leny GOODWINVIVI [id number] CHEST AP PORTABLEon 04-23-20 CHEST AP PORTABLE EXAMINATION: CHEST AP PORTABLE, 04/23/2023 8:37 AM EST HISTORY: Acute confusion COMPARISON: None. TECHNIQUE: AP portable view of the chest performed. FINDINGS: Medical devices: None. Cardiomediastinal silhouette is within normal limits. The lungs are clear. No large pleural effusion, or pneumothorax. IMPRESSION: 1. No acute cardiopulmonary abnormality. Normal [facility] 7 - EDon 04-23-2023 Anion gap [Moles/Vol] 16 mmol/L 7 - 17 mmol/L [facility] Chloride [Moles/Vol] 105 mmol/L 98 - 108 mmol/L [facility] CO2 [Moles/Vol] 21 mmol/L 21 - 31 mmol/L [place] Creatinine [Mass/Vol] 0.79 mg/dL 0.50 - 1.20 mg/dL [facility] eGFR, CKD-EPI, Female - PINF [facility] Comment on above: Reported eGFR is bas ed on the CKD-EPI 2020 equation using creatinine, age, and sex. Glucose [Mass/Vol] 105 mg/dL High 70 - 99 mg/dL [facility] Interpretation and review of laboratory results Abnormal [facility] Osmolality Calc [Osmolality] 289 [facility] Potassium [Moles/Vol] 3.8 mmol/L 3.5 - 5.0 mmol/L [facility] Sodium [Moles/Vol] 138 mmol/L 135 - 145 mmol/L [facility] Urea nitrogen [Mass/Vol] 13 mg/dL 7 - 25 mg/dL [facility] Urea nitrogen/Creatinine [Mass ratio] 16 mg/mg [facility] Anion gap [Moles/Vol] 16 mmol/L Normal 7-17 [facility] Comment on above: Performed By: #### H YASMINE, MGO, C7ED, QHCGB #### [facility] (DEFAULT) [address] [place] [address] Chloride [Moles/Vol] 105 mmol/L Normal 98-108 [facility] Comment on above: Performed By: #### H YASMINE, MGO, C7ED, QHCGB #### [facility] (DEFAULT) [address] [place] [address] CO2 [Moles/Vol] 21 mmol/L Normal 21-31 [facility] Comment on above: Performed By: #### H YASMINE, MGO, C7ED, QHCGB #### [facility] (DEFAULT) [address] [place] [address] Creatinine [Mass/Vol] 0.79 mg/dL Normal 0.50-1.20 [facility] Comment on above: Performed By: #### H YASMINE, MGO, C7ED, QHCGB #### [facility] (DEFAULT) [address] [place] [address] eGFR, CKD-EPI, Female > Normal >=60 [facility] Comment on above: Result Comment: Repo rted eGFR is based on the CKD-EPI 2020 equation using creatinine, age, and sex. Performed By: #### H YASMINE, MGO, C7ED, QHCGB #### [facility] (DEFAULT) [address] [place] [address] Glucose [Mass/Vol] 105 mg/dL High 70-99 [facility] Comment on above: Performed By: #### H YASMINE, MGO, C7ED, QHCGB #### [facility] (DEFAULT) [address] [place] [address] Osmolality [Osmolality] 289 mosm/kg Normal 278-305 [facility] Comment on above: Performed By: #### H YASMINE, MGO, C7ED, QHCGB #### [facility] (DEFAULT) [address] [place] [address] Potassium [Moles/Vol] 3.8 mmol/L Normal 3.5-5.0 [facility] Comment on above: Performed By: #### H YASMINE, MGO, C7ED, QHCGB #### [facility] (DEFAULT) [address] [place] [address] Sodium [Moles/Vol] 138 mmol/L Normal 135-145 [facility] Comment on above: Performed By: #### H YASMINE, MGO, C7ED, QHCGB #### [facility] (DEFAULT) [address] [place] [address] Urea nitrogen [Mass/Vol] 13 mg/dL Normal 7-25 [facility] Comment on above: Performed By: #### H YASMINE, MGO, C7ED, QHCGB #### [facility] (DEFAULT) [address] [place] [address] Urea nitrogen/Creatinine [Mass ratio] 16 mg/mg Normal [facility] Comment on above: Performed By: #### H YASMINE, MGO, C7ED, QHCGB #### [facility] (DEFAULT) [address] [place] [address] CTA HEAD AND NECKon 04-23 CT CTA HEAD AND NECK CTA HEAD/NECK. HISTORY: Acute confusion. Right-sided headache for approximately 2 days. Hypertension and migraines. COMPARISON: None. TECHNIQUE: Initially, unenhanced head CT was obtained. CT angiogram of the head and neck obtained after administration of intravenous contrast material. Multiplanar and volume rendered 3-D reformats were created. NASCET criteria was used for evaluation of luminal stenosis. 3-D vascular images were constructed on a separate workstation. FINDINGS: CTA HEAD: The internal carotid arteries are patent without hemodynamically significant stenosis. The anterior and middle cerebral arteries are patent without hemodynamically significant stenosis. The intracranial vertebral arteries and basilar artery are patent without hemodynamically significant stenosis. The bilateral posterior cerebral arteries are patent without hemodynamically significant stenosis. No aneurysm or arteriovenous malformation is identified. The visualized dural venous sinuses are patent. CTA NECK: The origins of the great vessels are widely patent. The bilateral common carotid arteries are widely patent. The carotid bifurcations, internal and external carotid arteries are patent without hemodynamically significant stenosis. The origins of the vertebral arteries are widely patent. The extracranial vertebral arteries are patent without hemodynamically significant stenosis. The vertebral arteries are codominant. The visualized upper lungs are clear. There is a subcentimeter hypoattenuating nodule in the left thyroid lobe. There is no cervical lymphadenopathy. There is no suspicious osseous lesion. CT HEAD: The ventricles and sulci are normal in size and configuration. There is no acute intracranial hemorrhage or extra-axial collection. There is no mass effect, midline shift, or hydrocephalus. Moon-white differentiation appears preserved. The calvarium appears intact. The visualized paranasal sinuses and mastoid air cells are well aerated. IMPRESSION: 1. No hemodynamically significant stenosis or occlusion in the intracranial or cervical arterial vasculature. 2. No acute findings on noncontrast head CT. Normal [facility] Comprehensive metabolic 2000 panelon 04-23-2023 Albumin [Mass/Vol] 4.4 g/dL Normal 3.4-5.0 [facility] Comment on above: Performed By: #### T ESTFT #### Performed for [facility] [address] [place], [place] [address] ALP [Catalytic activity/Vol] 45 U/L Low 50-136 [facility] Comment on above: Performed By: #### T ESTFT #### Performed for [facility] [address] [place], [place] [address] ALT [Catalytic activity/Vol] 21 U/L Normal 14-59 [facility] Comment on above: Performed By: #### T ESTFT #### Performed for [facility] [address] [place], [place] [address] Anion gap [Moles/Vol] 6.0 mmol/L Normal <=15.0 [facility] Comment on above: Performed By: #### T ESTFT #### Performed for [facility] [address] [place], [place] [address] AST [Catalytic activity/Vol] 16 U/L Normal 15-37 [facility] Comment on above: Performed By: #### T ESTFT #### Performed for [facility] [address] [place], [place] [address] Bilirubin [Mass/Vol] 0.6 mg/dL Normal 0.2-1.0 [facility] Comment on above: Performed By: #### T ESTFT #### Performed for [facility] [address] [place], [place] [address] Calcium [Mass/Vol] 9.6 mg/dL Normal 8.5-10.1 [facility] Comment on above: Performed By: #### T ESTFT #### Performed for [facility] [address] [place], [place] [address] Chloride [Moles/Vol] 106 mmol/L Normal 98-107 [facility] Comment on above: Performed By: #### T ESTFT #### Performed for [facility] [address] [place], [place] [address] CO2 [Moles/Vol] 26 mmol/L Normal 21-32 [facility] Comment on above: Performed By: #### T ESTFT #### Performed for [facility] [address] [place], [place] [address] Creatinine [Mass/Vol] 0.80 mg/dL Normal 0.51-0.95 [facility] Comment on above: Performed By: #### T ESTFT #### Performed for [facility] [address] [place], [place] [address] GFR/1.73 sq M.predicted MDRD (S/P/Bld) [Vol rate/Area] mL/min/{1.73_m2} Normal >=59 [facility] Comment on above: Performed By: #### T ESTFT #### Performed for [facility] [address] [place], [place] [address] Glucose [Mass/Vol] 94 mg/dL Normal 74-106 [facility] Comment on above: Performed By: #### T ESTFT #### Performed for [facility] [address] [place], [place] [address] HGFR GLOMERULAR FILTRATION RATE INTERPRETATION~The eGFR is calculated using the MDRD equation.~This equation has been validated in patients with chronic kidney disease;~however, it underestimates the GFR in healthy patients with GFR's over 60 mL/min.~The equation is not valid in children under the age of 18.~NOTE: Criteria for Chronic Kidney Disease:~ ~1. Kidney damage for at least three months, as defined~by structural or functional abnormalities of the kidney,~with or without decreased glomerular filtration rate, manifested by either:~* Pathological abnormalities or~* Markers of Kidney damage, including abnormalities in~the composition of the blood or urine or abnormalities in imaging tests.~ ~2. GFR <60 mL/min/1.73 m squared for at least three months, with or without kidney damage.~ Normal [facility] Comment on above: Performed By: #### T ESTFT #### Performed for [address] [address] Potassium [Moles/Vol] 4.2 mmol/L Normal 3.5-5.1 [facility] Comment on above: Performed By: #### T ESTFT #### Performed for [address] [address] Protein [Mass/Vol] 8.2 g/dL Normal 6.4-8.2 [facility] Comment on above: Performed By: #### T ESTFT #### Performed for [address] [address] Sodium [Moles/Vol] 138 mmol/L Normal 136-145 [facility] Comment on above: Performed By: #### T ESTFT #### Performed for [address] [address] Urea nitrogen [Mass/Vol] 15 mg/dL Normal 7-17 [facility] Comment on above: Performed By: #### T ESTFT #### Performed for [address] [address] HCG ( test) Ql HCG.beta subunit [Moles/Vol] 22.5 mmol/L mIU/mL [facility] Comment on above: Non-: <10 mI U/mL Postmenopause: <10 mIU/mL Male: <10 mIU/mL FEMALE GESTATIONAL AGE 2-4 Weeks: 39.1-8,388 mIU/mL 5-6 Weeks: 861-88,769 mIU/mL 6-8 Weeks: 8,636-218,085 mIU/mL 8-10 Weeks: 18,700-244,467 mIU/mL 10-12 Weeks: 23,143-181,899 mIU/mL 13-27 Weeks: 6,303-97,171 mIU/mL 24-40 Weeks: 4,360-74,883 mIU/mL Test results cannot be interpreted as absolute evidence for the presence or absence of malignant disease. [facility] HCG BLOODon 04-23-2023 HCG.beta subunit Qn 15 m[IU]/mL High 1-3 [facility] Comment on above: Performed By: #### T ESTFT #### Performed for [facility] [address] [place], [place] [address] HCG.beta subunit Qnon 2022 [facility] HCG INTERPRETATION The expected values were calculated non-parametrically and represent the central 95% of the population. When borderline results are encountered, patient samples should be drawn 48 hours later. The concentration of HCG rises rapidly during early . Gestational Age Expected HCG Values 0.2-1 week 5-50 1-2 weeks 50-500 2-3 weeks 100-5000 3-4 weeks 500-10,000 4-5 weeks 1000-50,000 5-6 weeks 10,000-100,000 6-8 weeks 15,000-200,000 2-3 months 10,000-100,000 Normal [facility] Comment on above: Performed By: #### T ESTFT #### Performed for [facility] [address] [place], [place] [address] HEMOGLOBIN A1Con 04-23-2023 Glucose [Mass/Vol] 103 mg/dL Normal [facility] Comment on above: Performed By: #### A 1CB, [id number] #### [facility] (DEFAULT) [address] [place] [address] Hemoglobin A1C HPLC 5.2 % Normal 4.7-5.6 [facility] Comment on above: Performed By: #### A 1CB, [id number] #### [facility] (DEFAULT) [address] [place] [address] LIPID PANEL W CALCULATED LDL on 04-23-2023 Cholesterol [Mass/Vol] 163 mg/dL NINF - 200 mg/dL [facility] Comment on above: [<200 mg/dL: Desirab le] [200-239 mg/dL: Borderline High] [>239 mg/dL: High] Cholesterol in HDL [Mass/Vol] 51 mg/dL 40 - PINF mg/dL [facility] Comment on above: [<40 mg/dL: Low (Hig h Risk)] [>59 mg/dL: High (Low Risk)] Cholesterol in LDL [Mass/Vol] 75 mg/dL 0 - 99 mg/dL [facility] Comment on above: [<100 mg/dL: Optimal ] [100-129 mg/dL: Near Optimal] [130-159 mg/dL: Borderline High] [160-189 mg/dL: High] [>189 mg/dL: Very High] Cholesterol non HDL [Mass/Vol] 112 mg/dL NINF - 130 mg/dL [facility] Cholesterol.total/Chol esterol in HDL [Mass ratio] 3.2 {ratio} NINF - 4.5 [facility] Interpretation and review of laboratory results Abnormal [facility] Triglyceride [Mass/Vol] 185 mg/dL High NINF - 150 mg/dL [facility] Comment on above: [<150 mg/dL: Desirab le] [150-199 mg/dL: Borderline] [200-499 mg/dL: High] [>500 mg/dL: Very High] Calculated LDL Cholesterol 75 mg/dL Normal 0-99 [facility] Comment on above: Result Comment: [<10 0 mg/dL: Optimal] [100-129 mg/dL: Near Optimal] [130-159 mg/dL: Borderline High] [160-189 mg/dL: High] [>189 mg/dL: Very High] Performed By: #### H YASMINE, MGO, C7ED, QHCGB #### [facility] (DEFAULT) [address] [address] Cholesterol [Mass/Vol] 163 mg/dL Normal <200 [facility] Comment on above: Result Comment: [<20 0 mg/dL: Desirable] [200-239 mg/dL: Borderline High] [>239 mg/dL: High] Performed By: #### H YASMINE, MGO, C7ED, QHCGB #### [facility] (DEFAULT) [address] [place] [address] Cholesterol in HDL [Mass/Vol] 51 mg/dL Normal >=40 [facility] Comment on above: Result Comment: [<40 mg/dL: Low (High Risk)] [>59 mg/dL: High (Low Risk)] Performed By: #### H YASMINE, MGO, C7ED, QHCGB #### [facility] (DEFAULT) [address] [place] [address] Non HDL Cholesterol 112 mg/dL Normal <130 [facility] Comment on above: Performed By: #### H YASMINE, MGO, C7ED, QHCGB #### [facility] (DEFAULT) [address] [place] [address] Total Cholesterol/HDL Ratio 3.2 Normal <4.5 [facility] Comment on above: Performed By: #### H YASMINE, MGO, C7ED, QHCGB #### [facility] (DEFAULT) [address] [place] [address] Triglyceride [Mass/Vol] 185 mg/dL High <150 [facility] Comment on above: Result Comment: [<15 0 mg/dL: Desirable] [150-199 mg/dL: Borderline] [200-499 mg/dL: High] [>500 mg/dL: Very High] Performed By: #### H YASMINE, MGO, C7ED, QHCGB #### [facility] (DEFAULT) [address] [place] [address] MAGNESIUMon 04-23-2023 Interpretation and review of laboratory results Normal [facility] Magnesium [Mass/Vol] 2.2 mg/dL 1.6 - 2.6 mg/dL [facility] Magnesium [Mass/Vol] 2.2 mg/dL Normal 1.6-2.6 [facility] Comment on above: Performed By: #### H YASMINE, MGO, C7ED, QHCGB #### [facility] (DEFAULT) [address] [place] [address] Magnesium [Mass/Vol] 2.2 mg/dL Normal 1.6-2.6 [facility] Comment on above: Performed By: #### T ESTFT #### Performed for [address] [address] No Panel Informationon 04-23 [facility] PT and aPTT panel Coag (PPP) on 04-23-2023 aPTT Coag (PPP) [Time] 30.7 s Normal 23.5-31.3 [facility] Comment on above: Performed By: #### P ROGEST, PROLAC, ESTROG, FSH #### Performed for [address] [address] HPTINR INR REFERENCE RANGE INTERPRETATION Patients on Coumadin 2.0 - 3.0 Patients with mechanical heart valves 2.5 - 3.5 Normal [facility] Comment on above: Performed By: #### P ROGEST, PROLAC, ESTROG, FSH #### Performed for [address] [address] INR Coag (PPP) [Relative time] 1.0 {INR} Normal 0.8-1.1 [facility] Comment on above: Performed By: #### P ROGEST, PROLAC, ESTROG, FSH #### Performed for [address] [address] PT Coag (PPP) [Time] 10.7 s Normal 9.3-11.5 [facility] Comment on above: Performed By: #### P ROGEST, PROLAC, ESTROG, FSH #### Performed for [address] [address] TROPONIN HIGH SENSITIVITYon 04-23-2023 TNIH 3.60 pg/mL Normal <=59.00 [facility] Comment on above: Result Comment: <59 pg/mL is considered a negative result. Performed By: #### P ROGEST, PROLAC, ESTROG, FSH #### Performed for [address] [place], [place] [address] TNIH <3.00 Normal <=59.00 [facility] Comment on above: Result Comment: <59 pg/mL is considered a negative result. Performed By: #### P ROGEST, PROLAC, ESTROG, FSH #### Performed for [facility] [address] [place], [place] [address] URINALYSIS with reflex to CU LTUREon 04-23-2023 Bacteria LM Ql (Urine sed) Negative Normal TRACE [facility] Comment on above: Performed By: #### V G #### Performed for [facility] [address] [place], [place] [address] Bilirubin (U) [Mass/Vol] Negative Normal NEGATIVE [facility] Comment on above: Performed By: #### V G #### Performed for [facility] [address] [place], [place] [address] Clarity (U) CLEAR Normal CLEAR [facility] Comment on above: Performed By: #### V G #### Performed for [facility] [address] [place], [place] [address] Color (U) YELLOW Normal YELLOW [facility] Comment on above: Performed By: #### V G #### Performed for [place] [address] [place], [place] [address] Glucose Test strip (U) [Mass/Vol] Negative Normal NEGATIVE [facility] Comment on above: Performed By: #### V G #### Performed for [facility] [address] [place], [place] [address] HMICRO MICROSCOPIC Normal [facility] Comment on above: Performed By: #### V G #### Performed for [facility] [address] [place], [place] [address] Hyaline casts (Urine sed) [#/Area] 0-8 Normal 0-8 [facility] Comment on above: Performed By: #### V G #### Performed for [place] [address] [place], [place] [address] Ketones (U) [Mass/Vol] Negative Normal NEGATIVE [facility] Comment on above: Performed By: #### V G #### Performed for [facility] [address] [place], [place] [address] Leukocyte esterase Qn (U) Negative Normal TRACE [facility] Comment on above: Performed By: #### V G #### Performed for [facility] [address] [place], [place] [address] Nitrite Ql (U) Negative Normal NEGATIVE [facility] Comment on above: Performed By: #### V G #### Performed for [facility] [address] [place], [place] [address] pH (U) 5.5 [pH] Normal 5.5-7.5 [facility] Comment on above: Performed By: #### V G #### Performed for [facility] [address] [place], [place] [address] Protein (U) [Mass/Vol] Negative Normal NEGATIVE [facility] Comment on above: Performed By: #### V G #### Performed for [facility] [address] [place], [place] [address] RBC (U) [#/Vol] TRACE Abnormal NEGATIVE [facility] Comment on above: Performed By: #### V G #### Performed for [facility] [address] [place], [place] [address] RBC LM.HPF (Urine sed) [#/Area] 0-4 Normal 0-4 [facility] Comment on above: Performed By: #### V G #### Performed for [place] [address] [place], [place] [address] Specific gravity (U) [Rel density] 1.012 Normal 1.010-1.035 [facility] Comment on above: Performed By: #### V G #### Performed for [facility] [address] [place], [place] [address] SQUAMOUS EPITHELIALS 0-5 Normal 0-5 [facility] Comment on above: Performed By: #### V G #### Performed for [address] [address] Urobilinogen Qn (U) 0.2 {Margot'U}/dL Normal <=1.0 [facility] Comment on above: Performed By: #### V G #### Performed for [facility] [address] [place], [place] [address] WBC LM.HPF (Urine sed) [#/Area] 0-5 Normal 0-5 [facility] Comment on above: Performed By: #### V G #### Performed for [facility] [address] [place], [place] [address] URINE QUALITATIVEo n 04-23-2023 HCG ( test) Ql (U) Negative Normal NEGATIVE [facility] Comment on above: Performed By: #### V G #### Performed for [facility] [address] [place], [place] [address] TESTOSTERONE FREE and TOTALo n 03-23-2023 % Free Testosterone 1.91 % Normal 0.50-2.80 [facility] Comment on above: Result Comment: Perf ormed at: BN Performed By: #### T ESTFT #### Performed for [facility] [address] [place], [place] [address] Testosterone [Mass/Vol] 8 ng/dL Normal 8-60 [facility] Comment on above: Result Comment: Perf ormed at: CB Performed By: #### T ESTFT #### Performed for [facility] [address] [place], [place] [address] Testosterone,Free 0.15 ng/dL Normal 0.10-0.85 [facility] Comment on above: Result Comment: Perf ormed at: BN Performed By: #### T ESTFT #### Performed for [place] [address] [place], [place] [address] ESTROGENon 03-22-2023 Estrogens, Total 240 pg/mL Normal [facility] Comment on above: Result Comment: Prep ubertal < 40 Female Cycle: 1-10 Days 16 - 328 11-20 Days 34 - 501 21-30 Days 48 - 350 Post-Menopausal 40 - 244 Performed By: #### P ROGEST, PROLAC, ESTROG, FSH #### Performed for [place] [address] [place], [place] [address] VAGINITIS VG NUSWABon 2022 Atopobium vaginae Low - 0 Normal [facility] Comment on above: Performed By: #### V G #### Performed for [facility] [address] [place], [place] [address] BVAB 2 Low - 0 Normal [facility] Comment on above: Performed By: #### V G #### Performed for [place] [address] [place], [place] [address] Sarita albicans, GABRIELA Positive Abnormal Negative [facility] Comment on above: Performed By: #### V G #### Performed for [facility] [address] [place], [place] [address] Sarita glabrata, GABRIELA Negative Normal Negative [facility] Comment on above: Performed By: #### V G #### Performed for [place] [address] Megasphaera 1 Low - 0 Normal [facility] Comment on above: Result Comment: Calc ulate total score by adding the 3 individual bacterial vaginosis (BV) marker scores together. Total score is interpreted as follows: Total score 0-1: Indicates the absence of BV. Total score 2: Indeterminate for BV. Additional clinical data should be evaluated to establish a diagnosis. Total score 3-6: Indicates the presence of BV. . This test was developed and its performance characteristics determined by [employer]. It has not been cleared or approved by the Food and Drug Administration. Performed By: #### V G #### Performed for [place] [address] Trich vag by GABRIELA Negative Normal Negative [facility] Comment on above: Performed By: #### V G #### Performed [address] [place] [address] FSHon 03-19-2023 FSH 5.5 mIU/mL Normal [facility] Comment on above: Result Comment: Adul t Female Range Follicular phase 3.5 - 12.5 Ovulation phase 4.7 - 21.5 Luteal phase 1.7 - 7.7 Postmenopausal 25.8 - 134.8 Performed By: #### P ROGEST, PROLAC, ESTROG, FSH #### Performed for [place] [address] PROGESTERONEon 03-19-2023 Progesterone 0.1 ng/mL Normal [facility] Comment on above: Result Comment: Foll icular phase 0.1 - 0.9 Luteal phase 1.8 - 23.9 Ovulation phase 0.1 - 12.0 First trimester 11.0 - 44.3 Second trimester 25.4 - 83.3 Third trimester 58.7 - 214.0 Postmenopausal 0.0 - 0.1 Performed By: #### P ROGEST, PROLAC, ESTROG, FSH #### Performed for [address] [address] PROLACTINon 03-19-2023 Prolactin 15.2 ng/mL Normal 4.8-23.3 [facility] Comment on above: Performed By: #### P ROGEST, PROLAC, ESTROG, FSH #### Performed for [address] [address] HCG BLOODon 03-17-2023 HCG.beta subunit Qn m[IU]/mL Normal 1-3 [facility] Comment on above: Performed By: #### T ESTFT #### Performed for [address] [address] HCG.beta subunit Qnon 2022 [facility] HCG INTERPRETATION The expected values were calculated non-parametrically and represent the central 95% of the population. When borderline results are encountered, patient samples should be drawn 48 hours later. The concentration of HCG rises rapidly during early . Gestational Age Expected HCG Values 0.2-1 week 5-50 1-2 weeks 50-500 2-3 weeks 100-5000 3-4 weeks 500-10,000 4-5 weeks 1000-50,000 5-6 weeks 10,000-100,000 6-8 weeks 15,000-200,000 2-3 months 10,000-100,000 Normal [facility] Comment on above: Performed By: #### T ESTFT #### Performed for [address] [address] PT Coag (PPP) [Time]on 03-17 HPTINR INR REFERENCE RANGE INTERPRETATION Patients on Coumadin 2.0 - 3.0 Patients with mechanical heart valves 2.5 - 3.5 Normal [facility] Comment on above: Performed By: #### P ROGEST, PROLAC, ESTROG, FSH #### Performed for [place] [address] [place], [place] [address] INR Coag (PPP) [Relative time] 1.0 {INR} Normal 0.8-1.1 [facility] Comment on above: Performed By: #### P ROGEST, PROLAC, ESTROG, FSH #### Performed for [place] [address] [place], [place] [address] PT with INRon 03-17-2023 PT Coag (PPP) [Time] 10.2 s Normal 9.3-11.5 [facility] Comment on above: Performed By: #### P ROGEST, PROLAC, ESTROG, FSH #### Performed for [address] [address] THYROID CASCADE PROFILEon TSH Qn 1.010 uIU/mL Normal 0.358-3.740 [facility] Comment on above: Performed By: #### P ROGEST, PROLAC, ESTROG, FSH #### Performed for [address] [address] ANES POSTPROC EVALon 022 ANES POSTPROC EVAL HNO ID: [id number] Author: Mando Forde MD Service: Anesthesiology Author Type: Anesthesiologist Type: Anesthesia Postprocedure Evaluation Filed: 06/26/2021 2:21 PM Note Text: POST ANESTHESIA EVALUATION NOTE : 1990 Procedure Summary Date: 06/26/21 [place] / [place] Anesthesia Start: 1240 Anesthesia Stop: 1350 Procedure: LAPAROSCOPIC CHOLECYSTECTOMY (N/A Abdomen) Diagnosis: RUQ pain Surgeons: Hillary Covarrubias MD Responsible Provider: Mando Forde MD Anesthesia Type: general ASA Status: 2 Anesthesia Type: general Airway Type: ETT Last Vitals Vitals Value Taken Time BP 148/84 06/26/21 1415 Temp 37.1 ?C (98.8 ?F) 06/26/21 1349 Pulse 77 06/26/21 1419 Resp 21 06/26/21 1419 SpO2 99 % 06/26/21 1419 Vitals shown include unvalidated device data. Post Anesthesia Patient Status Patient Evaluation: bedside. Anticipated Disposition: phase 2 then home. Neurological Status: aware and responsive. Pulmonary Status: breathing comfortably on room air Airway Control: returned to baseline unsupported. Cardiovascular Status: stable. Pain Management: clinically adequate Postoperative Hydration: acceptable. Intraoperative Events: no significant anesthesia events Post Operative Nausea/Vomiting Status: no significant post operative nausea or vomiting Anesthetic Observations: Recommendation: continue current plan of care. Anesthesia Observations No Documentation SIGNATURE: Mando Forde MD PATIENT NAME: Clarisa De La Cruz DATE: June 26, 2021 TIME: 2:21 PM CSN: [id number] [facility] ANES PRE-OPon 06-26-2021 ANES PRE-OP HNO ID: [id number] Author: Rafael Justice MD Service: Anesthesiology Author Type: Anesthesiologist Type: Anesthesia Preprocedure Evaluation Filed: 06/26/2021 10:42 AM Note Text: ANESTHESIOLOGY DAY OF SURGERY NOTE : 1990 Procedure Information Date/Time: 06/26/21 1135 Procedure: LAPAROSCOPIC CHOLECYSTECTOMY (N/A ) Location: [place] [address] / [place] Surgeons: Hillary Covarrubias MD Estimated body mass index is 27.19 kg/m? as calculated from the following: Height as of this encounter: 172.7 cm (5' 7.99). Weight as of this encounter: 81.1 kg (178 lb 12.7 oz). Most recent hematocrit and potassium results: Hematocrit 42.6 01/07/2020 Potassium 3.6 02/20/2019 Relevant Problems No relevant active problems I - PHYSICAL EVALUATION AIRWAY Patient intubated: No. Mallampati: II. TM distance: >3 FB. Neck ROM: full ROM without neurological symptoms. Mouth opening: adequate. Short neck: no. Thick neck: no DENTAL Dental findings: teeth intact. Additional exam findings: no II - ANESTHESIA PLAN ASA Score: 2 Anesthetic Plan: general Airway type: ETT NPO Status: adequate Monitoring plan: Standard ASA. Postoperative analgesic plan: parenteral or oral opioids and multimodal analgesia. Anesthetic Risks, Benefits, Alternatives, Personnel Discussed. Consent obtained from: patient.Patient / Surrogate agrees to blood products: yes DNR status not reviewed with patient and/or family prior to surgery. Significant changes in the patient condition since the History and Physical, not otherwise documented in primary service progress note: no. Potential Anesthesia issues that may suggest increased risk of complications or contraindication to planned procedure: none. Vitals Value Taken Time BP 139/91 06/26/21 1014 Pulse 72 06/26/21 1014 Resp 18 06/26/21 1014 Temp 36.4 ?C (97.5 ?F) 06/26/21 1014 SpO2 100 % 06/26/21 1014 Facility-Administere d Medications as of 06/26/2021 Medication Dose Route Frequency - lactated ringers iv infusion 5-30 mL/hr INTRAVENOUS CONTINUOUS - ceFAZolin iv piggyback 2 g in D5W (iso-osmotic) 100 mL (ANCEF) 2 g INTRAVENOUS Pre-Op Once Outpatient Medications as of 06/26/2021 Medication Sig - multivitamin tablet Take 1 tablet by mouth once daily. - ascorbic acid, vitamin C, (VITAMIN C) 250 mg tablet Take 250 mg by mouth once daily. - OTC PRODUCT Airborne: Take two tablets by mouth once daily. I have interviewed and examined the patient. I have reviewed the medical record and/or the pre-anesthesia evaluation, pertinent labs, and test results. This contains updated information obtained within 48 hours of Surgery/Procedure. SIGNATURE: Rafael Justice MD PATIENT NAME: Clarisa De La Cruz DATE: June 26, 2021 TIME: 10:42 AM CSN: [id number] [facility] BRIEF OP NOTon 06-26-2021 BRIEF OP NOT HNO ID: [id number] Author: Hillary Covarrubias MD Service: General Surgery Author Type: Physician Type: Brief Op Note Filed: 06/26/2021 1:42 PM Note Text: BRIEF OPERATIVE NOTATION FOR SURGICAL PROCEDURE. Clarisa De La Cruz 1990 [id number] female LOG ID: [id number] Surgery/Procedure Date: 06/26/2021 Incision/Procedure Start Time: 12:58 PM Incision Close/Procedure End Time: 1:37 PM Surgeon(s)/Procedura list(s) and Communications Tower Technician(s): Surgeon(s) and Role: * Hillary Covarrubias MD - Primary Nurse Practitioner: Ita Merchant APRN.CHECK WEIGHER Registered Nurse Shipping Agent: Cari Boothe RN REFERRING PHYSICIAN: Outpatient DEPT: [facility] PROVIDER: Marilin POS: [id number] ANESTHESIA: General ASA CLASS: 2 - mild DIAGNOSIS: biliary colic PROCEDURE: LAPAROSCOPIC CHOLECYSTECTOMY WITH INTRAOPERATIVE CHOLEANGIOGRAM - [id number] IVF: 600 EBL: 15 Specimens: gallbladder ADDITIONAL DIAGNOSES: FINDINGS: small stone flushed with cholangiogram COMPLICATIONS: None PMHx - PAST MEDICAL HISTORY Diagnosis Date - Arachnoid cyst - Lyme disease - Mesenteric lymphadenitis - POTS (postural orthostatic tachycardia syndrome) COMORBIDITIES - None Post Op Occurrences - None Wound Classification - Clean Contaminated Operative note dictated in the dictation system. - [id number] Hillary Covarrubias MD [facility] HISTORY PHYSICALon HISTORY PHYSICAL HNO ID: [id number] Author: Hillary Covarrubias MD Service: General Surgery Author Type: Physician Type: HANDP Filed: 06/26/2021 12:07 PM Note Text: HISTORY AND PHYSICAL ? Clarisa Brandonirez 1990 ? REFERRING PHYSICIAN: Ottoniel Encarnacion CNP ? CHIEF COMPLAINT: Consult (gallstones) ? HPI: Clarisa is a 31 year old female with a complaint of right upper quadrant pain. The patient has had symptoms of right upper quadrant pain for some time. The symptoms have increased since her recent childbirth. The pain does radiate to the back and shoulder. Food does aggravate her symptoms. Alleviating factors include: none. ? The patient was seen by her primary care provider1 week ago. Clarisa underwent an ultrasound. These tests demonstrated cholelithiasis. The patient is referred for evaluation and treatment. ? The patient is being seen by me today at the request of Ottoniel Encarnacion CNP for my opinion and advice regarding symptomatic cholelithiasis. ? The patient has a history of POTS. She had a Port-A-Cath in the past for IV hydration which has since been removed. She was told she had excessive bleeding after one of her previous vaginal deliveries. She had a work-up for platelet dysfunction which I understand was negative. ? She had no bleeding issues with her most recent delivery. ? ? SIGNIFICANT MEDICAL PROBLEMS: PAST MEDICAL HISTORY PAST MEDICAL HISTORY Diagnosis Date - Arachnoid cyst ? - Lyme disease ? - Mesenteric lymphadenitis ? - POTS (postural orthostatic tachycardia syndrome) ? ? ? OPERATIONS: PAST SURGICAL HISTORY PAST SURGICAL HISTORY Procedure Laterality Date - DELIVERY ONLY ? 2021 - D AND C ? ? - PORT ? ? ? Insertion AND removal x 2 ? ? ? CURRENT MEDICATIONS: CURRENT MEDICATIONS Current Outpatient Medications Medication Sig Dispense Refill - labetalol HCl (LABETALOL ORAL) Take 100 mg by mouth twice daily. ? ? - cyanocobalamin, vitamin B-12, (VITAMIN B-12 ORAL) Take by mouth once daily. ? ? - cholecalciferol, vitamin D3, (VITAMIN D3 ORAL) Take by mouth once daily. ? ? - multivitamin tablet Take 1 tablet by mouth once daily. ? ? - ascorbic acid, vitamin C, (VITAMIN C) 250 mg tablet Take 250 mg by mouth once daily. ? ? - OTC PRODUCT Airborne: Take two tablets by mouth once daily. ? ? ? No current facility-administere d medications for this visit. ? ? ALLERGIES: Adhesive Tape-Silicones, Latex, and Sulfa (Sulfonamide Antibiotics) ? PERSONAL HISTORY: SOCIAL HISTORY Social History ? Tobacco Use - Smoking status: Never Smoker - Smokeless tobacco: Never Used Vaping Use - Vaping Use: Never used Substance Use Topics - Alcohol use: Never - Drug use: Never ? FAMILY HISTORY: FAMILY HISTORY FAMILY HISTORY Problem Relation Age of Onset - Hypertension Father ? - other (Sloping Brain Syndrome) Father ? ? ? REVIEW OF SYMPTOMS: Review of Systems: General - denies fevers, denies weight loss, denies anorexia, denies fatigue Cardiovascular - denies chest pain, denies heart palpitations, denies history of heart attack, denies heart problems Pulmonary - denies shortness of breath, denies coughing up blood, denies breathing difficulties, denies chronic cough, denies history of asthma, denies history of bronchitis, denies history of pneumonia Gastrointestinal - denies blood in stools, denies abdominal pain, denies chronic constipation, denies chronic diarrhea, denies acid indigestion/heartbur n, denies swallowing problems, denies history of peptic ulcers Neurological - denies numbness/weakness of extremities, denies seizures, denies history of head trauma, denies history of stroke Genitourinary - denies blood in urine, denies burning with urination, denies history of kidney stones, denies history of kidney infections/failure, denies bladder problems, denies prostate problems Hematological - denies spontaneous/prolonge d bleeding, denies history of blood transfusions, denies history of deep venous thromboses and/or pulmonary emboli, denies easy bruising Skin - denies nonhealing skin wounds, denies history of skin cancer, denies rashes Musculoskeletal - denies history of fractures, denies arthritis Endocrine - denies diabetes, denies temperature intolerance, denies hair/skin changes,denies history of radiation exposure Psychological ? denies hallucinations, denies suicidal ideation at present ? ? PHYSICAL EXAMINATION: ? General: The patient is 31 year old female, well nourished, well hydrated in no acute distress. The patient is oriented to time, place, and person. ? VITALS: Blood pressure 118/84, pulse 92, temperature 36.4 ?C (97.6 ?F), height 172.7 cm (5' 8), weight 81.1 kg (178 lb 12.8 oz), last menstrual period 04/09/2020, SpO2 96 %. Body mass index is 27.19 kg/m?. ? HEENT: Normal cephalic, ataumatic, pupils are equally round, sclera are anicteric (more content not included)... [facility] NURSING PROGon 06-26-2021 NURSING PROG HNO ID: [id number] Author: Geovanna Ortiz RN Service: Nursing Author Type: Registered Nurse Type: Nursing Progress Note Filed: 06/26/2021 3:48 PM Note Text: Nursing Progress Note Patient Name: Clarisa De La Cruz [place] up to bathroom to void, with pt, splinting dicussed able to void. This note was completed by: Geovanna Ortiz [facility] OPERATIVE NOon 06-26-2021 OPERATIVE NO HNO ID: [id number] Author: Hillary Covarrubias MD Service: General Surgery Author Type: Physician Type: Operative Report Filed: 06/26/2021 7:14 PM Note Text: [facility] - Operative Report CLARISA DE LA CRUZ : 1990 AGE: 31. SEX: F PATIENT TYPE: A [place] [place] [facility] LOCATION: [facility] ATTENDING PHYSICIAN: HILLARY COVARRUBIAS M.D. CSN NUMBER: [id number] DATE OF SURGERY/PROCEDURE: 06/26/2021 INCISION/PROCEDURE START TIME: 12:58 p.m. INCISION CLOSE/PROCEDURE END TIME: 1:37 p.m. PREOPERATIVE DIAGNOSIS: Biliary colic. POSTOPERATIVE DIAGNOSIS: Biliary colic, intraoperative cholangiogram showed what was felt to be likely a small stone or air bubble which passed during the cholangiogram. SURGEON: Hillary Covarrubias M.D. BARREL BURNER: Ita Merchant CNP. SURGERY/PROCEDURE: Laparoscopic cholecystectomy with intraoperative cholangiogram. ANESTHESIA: General endotracheal. LOG ID: [id number]. ANESTHESIOLOGIST: Mando Pisano. ASA: 2. INTRAVENOUS FLUIDS: 600 mL. ESTIMATED BLOOD LOSS: 15 mL. URINE OUTPUT: No catheter. FINDINGS: As above. SPECIMENS: Gallbladder. DRAINS: None. COMPLICATIONS: None. DISPOSITION: Patient taken to PACU in stable condition. DESCRIPTION OF PROCEDURE: Sign-in was performed verifying the patient, site, procedure, position, critical nursing information, VTE prophylaxis. The patient received 2 g of Ancef and had sequential pressure devices placed. Following induction of general anesthetic, patient was prepped and draped in usual fashion. Time-out performed verifying the patient, site, procedure, position. Local anesthetic was injected in umbilicus. Incision made dissecting the fascia. 2 stay sutures were placed on the fascia and incision was made through the fascia and the peritoneum under direct visualization. Presley trocar was inserted through a stay suture. Pneumoperitoneum to 13 mmHg was insufflated. Three 5 mm ports were placed in position. Visual inspection revealed a normal-appearing visualized gallbladder. Gallbladder was extracted upward and outward. Dissection carried out in Calot triangle. As dissection was continued, a critical view of the neck of the gallbladder and cystic duct junction demonstrated cystic duct and cystic artery with no signs of aberrant ductal structures. A clip was placed in the neck of the gallbladder cystic junction and a partial ductotomy was made. Percutaneous cholangiocath inserted with a clip. Intraoperative cholangiogram showed filling of the cystic duct, filling of the common bile duct, filling of secondary biliary radicals, and emptying into the duodenum without signs of obstruction. Clip and catheter removed. Cystic duct identified, doubly clipped proximally, and divided. Cystic artery was doubly clipped proximally, singly distally, and divided. Gallbladder was dissected free from gallbladder fossa, placed in Endobag bag and removed through both port site. 0 PDS [id number] sutures placed in the umbilical port site defect. The gallbladder fossa was checked for hemostasis. With good hemostasis, air was aspirated clear. 5 ports were removed direct visualization with no signs of bleeding. Pneumoperitoneum was released. The umbilical trocar was removed. The umbilical fascia was secured. Skin was closed with 4-0 Monocryl subcu sutures. Steri-Strips dressing applied. The patient tolerated procedure well and brought to recovery stable condition. Ita Merchant was my medical assistant ob gyn. She assisted in visualization, retraction, and performed subcuticular closure. There were no qualified surgeons or residents available. Hillary Covarrubias M.D. RG:[id number] /[id number] Normal [facility] SURGICAL PATHOLOGYon 022 SURGICAL PATHOLOGY Specimen originated from [facility] Specimen #: [id number] Submitting Physician: Hillary Covarrubias M.D. FINAL DIAGNOSIS Gallbladder, cholecystectomy - Chronic cholecystitis and cholelithiasis. SR/MN 06/29/2021 Marcos Aguilar MD, Ph.D. (Electronic Signature) SPECIMEN SUBMITTED A: GALLBLADDER CLINICAL DATA RUQ PAIN, LMP: HCG NEGATIVE GROSS DESCRIPTION A. Received in formalin labeled gallbladder is an intact gallbladder measuring 4.9 x 2.8 x 0.6 cm. The serosal surface is pisano-pink and smooth. A 0.4 cm defect is identified in the body. The serosa is red-purple and velvety. No multiple orange-yellow calculi are appreciated ranging in greatest dimension from 0.1 to 0.3 cm. The cystic duct is not impacted. Sectioning demonstrates a 0.1 cm wall thickness. There is which was floor representative sections are submitted in cassette A1. SBP 06/26/2021 Gross examination performed at [facility], [address] [place] [address] Date of Report: 06/30/2021 Date of Procedure: 06/26/2021 Date of Receipt: 06/26/2021 Submitted by: Hillary Covarrubias M.D. Location: [facility] Diagnostic interpretation performed at [facility], [address] [place] [address]. CLIA Number: [id number] [facility] XR CHOLANGIOGRAM INTRAOPon 0 06-26-2021 XR CHOLANGIOGRAM INTRAOP * * *Final Report* * * DATE OF EXAM: Jun 26 2021 1:30PM MDR [id number] - XR CHOLANGIOGRAM INTRAOP / PROCEDURE REASON: CALCULUS OF GALLBLADDER * * * * Physician Interpretation * * * * PROCEDURE: XR CHOLANGIOGRAM INTRAOP HISTORY: CALCULUS OF GALLBLADDER. VIEWS: Multiple right upper quadrant fluoroscopic spot image(s) stored in a permanent archive. IMPRESSION: Contrast opacification of intrahepatic and extrahepatic biliary ducts with spillage into the duodenum. No filling defects. See operative report for further details. Fluoroscopic Radiation Summary: Plane A, Air Kerma: 9.2 mGy Dose Area Product (DAP): Fluoro time: 0:29 min:sec Draftsperson: PSCTorey Transcribe Date/Time: Jun 26 2021 3:24P Dictated by : Suzan GUERRA MD This examination was interpreted and the report reviewed and electronically signed by: Suzan GUERRA MD on Jun 26 2021 3:24PM EST [id number] CN [facility] Hepatitis Acute Panel * OUTS YARIEL CLIENTS ONLY *on 05-20-2021 Hep B Core Ab, IgM NEGAT Normal Negative [facility] Comment on above: Performed By: #### H ACUTP #### [facility] Routine Lab [address] [place], [place] [address] Hepatitis A Ab IgM NEGAT Normal Negative [facility] Reference Lab Comment on above: Performed By: #### H ACUTP #### [facility] Routine Lab [address] [place], [place] [address] HBsAg NEGAT Normal Negative [facility] Comment on above: Performed By: #### H ACUTP #### [facility] Routine Lab [address] [place], [place] [address] Hepatitis C Ab IA NEGAT Normal Negative [facility] Comment on above: Performed By: #### H ACUTP #### [facility] Routine Lab [address] [place], [place] [address] CT PULMONARY ARTERIESon 02-08 CT PULMONARY ARTERIES EXAMINATION: CTA OF THE CHEST 03/07/2021 6:03 pm TECHNIQUE: CTA of the chest was performed after the administration of intravenous contrast. Multiplanar reformatted images are provided for review. MIP images are provided for review. Dose modulation, iterative reconstruction, and/or weight based adjustment of the mA/kV was utilized to reduce the radiation dose to as low as reasonably achievable. COMPARISON: None HISTORY: ORDERING SYSTEM PROVIDED HISTORY: Pulmonary embolism (PE) suspected, high prob; delivered baby 10/6, CP, SOB; TECHNOLOGIST PROVIDED HISTORY: Illness/Other Acuity: Acute Reason for Exam: Pulmonary embolism (PE) suspected, high prob, delivered baby 10/6, CP, SOB Type of Encounter: Initial Additional signs and symptoms: Pulmonary embolism (PE) suspected, high prob, delivered baby 10/6, CP, SOB FINDINGS: PULMONARY ARTERIES: Normal caliber. Adequately opacified for evaluation. Motion artifact partially obscuring some segmental and subsegmental branches in the lingula and left lower lobe. No definite filling defects consistent with emboli. MEDIASTINUM: Normal heart size. No flattening of the interventricular septum. No pericardial effusion. No mediastinal nor hilar lymphadenopathy. Remnant or hyperplastic thymic tissue. LUNGS/PLEURA: Patent central airways. Clear lungs. No pleural effusions nor pneumothoraces. UPPER ABDOMEN: Normal appearance of the included upper abdominal organs. SOFT TISSUES/BONES: No supraclavicular nor axillary lymphadenopathy. No acute fractures nor suspicious bony lesions. IMPRESSION: Motion artifact partially obscures some pulmonary artery segmental and subsegmental branches in the lingula and left lower lobe. Within this limitation, no definite findings of pulmonary embolism are identified. Workstation ID: [id number] Dictated by: FREDDIE WILLIAM on Sat Mar 07, 2021 6:31:44 PM EDT Transcribed by: FREDDIE WILLIAM on Sat Mar 07, 2021 6:31:44 PM EDT Finalized by: FREDDIE WILLIAM on Sat Mar 07, 2021 6:31:44 PM EDT [facility] Comment on above: Order Comment: Injur y/Trauma or Illness?:Illness/Other How long have you had these symptoms (acute/chronic)?:Acute Reason for exam?:Pulmonary embolism (PE) suspected, high prob, delivered baby 10/6, CP, SOB Type of Exam?:Initial Additional signs and symptoms?:Pulmonary embolism (PE) suspected, high prob, delivered baby 10/6, CP, SOB CULTURE URINEon 01-28-2021 CULTURE URINE CULTURE URINE --> Status: F Normal urogenital kerri present. Normal [facility] Comment on above: Performed By: #### C /UR ####[facility] [place] [address] Group B Strep Screen PCRon 0 01-28-2021 Group B Strep Screen PCR Group B Strep Screen PCR --> Status: F NEGATIVE Expected Result: Negative CDC guidelines for prevention of Group B Strep disease recommends collection of both vaginal and rectal specimens for optimal recovery of GBS. Methodology - Real Time PCR ([employer]) Expected Result: Negative CDC guidelines for prevention of Group B Strep disease recommends collection of both vaginal and rectal specimens for optimal recovery of GBS. Methodology - Real Time PCR ([employer]) Normal [facility] Comment on above: Performed By: #### G BSPC ####[facility] [place] [address] Chlamydia and GC PCR Panelon 01-27-2021 Chlamydia and GC PCR Panel Chlamydia trachomatis PCR --> Status: F NOT Detected Chlamydia trachomatis Nucleic Acid NOT Detected by DNA Amplification using the [employer] System. Culture is the only recommended test in medical-legal cases such as suspected child abuse or molestation. Chlamydia trachomatis Nucleic Acid NOT Detected by DNA Amplification using the [employer] System. Culture is the only recommended test in medical-legal cases such as suspected child abuse or molestation. Neisseria gonorrhoeae PCR --> Status: F NOT Detected Neisseria gonorrhoeae Nucleic Acid NOT Detected by DNA Amplification using the [employer] System. Culture is the only recommended test in medical-legal cases such as suspected child abuse or molestation. Neisseria gonorrhoeae Nucleic Acid NOT Detected by DNA Amplification using the [employer] System. Culture is the only recommended test in medical-legal cases such as suspected child abuse or molestation. Normal [facility] Comment on above: Performed By: #### C TNGP ####[facility] [place], [place] Comp Metabolic Panelon 01-27 ALP [Catalytic activity/Vol] 100 U/L Normal 38-126 [facility] Comment on above: Performed By: #### C MP3, HEMOG #### [facility] [address] [place], [place] ALT [Catalytic activity/Vol] 18 U/L Normal 0-34 [facility] Comment on above: Result Comment: The ALT test is performed by an updated assay method. Please note that the reference intervals have been changed and are now sex specific. Performed By: #### C MP3, HEMOG #### [facility] [address] [place], [place] Calcium [Mass/Vol] 9.4 mg/dL Normal 8.4-10.4 [facility] Comment on above: Performed By: #### C MP3, HEMOG #### [facility] [address] [place], [place] Glucose [Mass/Vol] 96 mg/dL Normal 70-100 [facility] Comment on above: Performed By: #### C MP3, HEMOG #### [facility] [address] [place], [place] Urea nitrogen [Mass/Vol] 11 mg/dL Normal 9-20 [facility] Comment on above: Performed By: #### C MP3, HEMOG #### [facility] [address] [place], [place] Anion gap [Moles/Vol] 10 mmol/L Normal 3-13 [facility] Comment on above: Performed By: #### C MP3, HEMOG #### [facility] [address] [place], [place] AST [Catalytic activity/Vol] 30 U/L Normal 15-46 [facility] Comment on above: Performed By: #### C MP3, HEMOG #### [facility] [address] [place], [place] Bilirubin [Mass/Vol] 0.4 mg/dL Normal 0.2-1.3 [facility] Comment on above: Performed By: #### C MP3, HEMOG #### [facility] [address] [place], [place] CO2 [Moles/Vol] 19 mmol/L Low 22-30 [facility] Comment on above: Performed By: #### C MP3, HEMOG #### [facility] [address] [place], [place] Creatinine [Mass/Vol] 0.47 mg/dL Low 0.52-1.25 [facility] Comment on above: Performed By: #### C MP3, HEMOG #### [facility] [address] [place], [place] eGFR OTHER > 90.0 Normal >60 [facility] Comment on above: Result Comment: KDIG O guidelines provide the following GFR categories: Stage GFR(ml/min/1.73 m2) Terms G1 >=90 Normal or high G2 60-89 Mildly decreased* G3a 45-59 Mildly to moderately decreased G3b 30-44 Moderately to severely decreased G4 15-29 Severely decreased G5 <15 Kidney failure *Relative to young adult level. In the absence of evidence of kidney damage, neither GFR category G1 nor G2 fulfill the criteria for CKD. The CKD-EPI equation is validated in individuals 18 years of age and older. Currently the best equation for estimating glomerular filtration rate (GFR) from serum creatinine in children is the Bedside Francisco equation. It is less accurate in patients with extremes of muscle mass, restriction of dietary protein, ingestion of creatine, extra-renal metabolism of creatinine, or treatment with medications that affect renal tubular creatinine secretion. Performed By: #### C MP3, HEMOG #### [place] [address] [place] [address] GFR/1.73 sq M.predicted among blacks MDRD (S/P/Bld) [Vol rate/Area] mL/min/{1.73_m2} Normal >60 [facility] Comment on above: Performed By: #### C MP3, HEMOG #### [place] [address] [place] [address] Protein [Mass/Vol] 7.2 g/dL Normal 6.3-8.2 [facility] Comment on above: Performed By: #### C MP3, HEMOG #### [place] [address] [place] [address] Potassium [Moles/Vol] 3.7 mmol/L Normal 3.5-5.1 [facility] Comment on above: Performed By: #### C MP3, HEMOG #### [place] [address] [place] [address] Sodium [Moles/Vol] 136 mmol/L Normal 135-145 [facility] Comment on above: Performed By: #### C MP3, HEMOG #### [place] [address] [place] [address] Albumin [Mass/Vol] 4.0 g/dL Normal 3.5-5.0 [facility] Comment on above: Performed By: #### C MP3, HEMOG #### [place] [address] [place] [address] Chloride [Moles/Vol] 106 mmol/L Normal 98-107 [facility] Comment on above: Performed By: #### C MP3, HEMOG #### [place] [address] [place] [address] Creatinine, Ur Randomon 09-2 Creatinine, Ur Random 97.6 mg/dL Normal No Range [facility] Comment on above: Performed By: #### T PUR, CRTUR #### [place] [address], [place] Hemogramon 01-27-2021 Erythrocyte distribution width (RBC) [Ratio] 13.4 % Normal 11.5-14.5 [facility] Comment on above: Performed By: #### C MP3, HEMOG #### [facility] [address] [place], [place] Hematocrit (Bld) [Volume fraction] 35.6 % Normal 35.0-47.0 [facility] Comment on above: Performed By: #### C MP3, HEMOG #### [facility] [address] [place], [place] Hemoglobin (Bld) [Mass/Vol] 11.9 g/dL Normal 11.7-16.0 [facility] Comment on above: Performed By: #### C MP3, HEMOG #### [place] [address] [place], [place] MCH (RBC) [Entitic mass] 30.3 pg Normal 26.0-34.0 [facility] Comment on above: Performed By: #### C MP3, HEMOG #### [place] [address] [place], [place] MCHC 33.5 % Normal 32.0-36.0 [facility] Comment on above: Performed By: #### C MP3, HEMOG #### [facility] [address] [place], [place] MCV (RBC) [Entitic vol] 90.4 fL Normal 79.0-98.0 [facility] Comment on above: Performed By: #### C MP3, HEMOG #### [facility] [address] [place], [place] Platelet mean volume (Bld) [Entitic vol] 9.4 fL Normal 7.4-10.4 [facility] Comment on above: Performed By: #### C MP3, HEMOG #### [facility] [address] [place], [place] Platelets (Bld) [#/Vol] 248 10*3/uL Normal 140-440 [facility] Comment on above: Performed By: #### C MP3, HEMOG #### [facility] [place] [facility] [address] [place], [place] RBC (Bld) [#/Vol] 3.93 10*6/uL Normal 3.80-5.20 [facility] Comment on above: Performed By: #### C MP3, HEMOG #### [facility] [place] [facility] [address] [place], [place] WBC (Bld) [#/Vol] 11.5 10*3/uL High 3.6-10.7 [facility] Comment on above: Performed By: #### C MP3, HEMOG #### [facility] [place] [facility] [address] [place], [place] MFM US Biophy w/o non- stresson 01-27-2021 MFM US Biophy w/o non-stress Patient Name: CLARISA DE LA CRUZ Maternal Medicine ACCESSION EXAM DATE/TIME PROCEDURE ORDERING PROVIDER [id number] 01/27/2021 08:57 EDT MFM US After DO DUNCAN ALESSANDRA 1st Trimester Reason For Exam (MFM US After 1st Trimester) HTN Report OBSTETRICS REPORT (Signed Final 01/27/2021 11:23 am) Patient Info ID #: [id number] : [birth year] (30 yrs) Name: CLARISA DE LA CRUZ Visit Date: 01/27/2021 09:00 am Performed By Attending: Lois Kerr Location: Inpatient- Hospital , PhD, FACOG Performed By: Mariann Logan [facility] Visit Type: Inpatient - Hospital Referred By: TIFFANIE DUNCAN Service(s) Provided US >= 14 weeks 75634 BPP w/out NST 05421 US Doppler umbilical art 68358 Indications Chronic hypertension, third trimester O10.913 Vital Signs Weight (lb): 198 Height: 5'8 BMI: 30.1 Evaluation Num Of Fetuses: 1 Heart Rate(bpm): 123 Cardiac Activity: Regular rhythm Lie: Longitudinal Presentation: Breech Placenta: posterior Amniotic Fluid SANDRA FV: Within normal limits SANDRA Sum(cm) %Tile Largest Pocket(cm) 7.2 3 5.2 RUQ(cm) LUQ(cm) Maternal Medicine Report 2 5.2 Biophysical Evaluation -- Amniotic F.V: Within normal limits F. Tone: Observed F. Movement: Observed Score: 88 F. Breathing: Observed Biometry -------- BPD: 77.2 mm G. Age: 31w 0d < 1 % CI: 70.7 % 70 - 86 OFD: 109.2 mm FL/HC: 21.7 % 20.1 - 22.3 HC: 299 mm G. Age: 33w 1d 1 % HC/AC: 1.06 0.93 - 1.11 AC: 282.1 mm G. Age: 32w 2d 3 % FL/BPD: 84.1 % 71 - 87 FL: 64.9 mm G. Age: 33w 3d 12 % FL/AC: 23.0 % 20 - 24 LV: 3.01 mm Est. FW: 2007 gm 4 lb 7 oz 14 % Gestational Age Clinical NIELS: 34w 6d NIELS: 03/04/21 U/S Today: 32w 3d NIELS: 03/21/21 Best: 34w 6d Det. By: Clinical NIELS NIELS: 03/04/21 Anatomy ------- Cranium: Normal appearance LVOT: Normal appearance Cavum: Suboptimal views Aortic Arch: Normal appearance Ventricles: Normal appearance Ductal Arch: Normal appearance Choroid Plexus: Normal appearance Diaphragm: Normal appearance Cerebellum: Normal appearance Stomach: Normal appearance Posterior Fossa: Normal appearance Abdomen: Normal appearance Nuchal Fold: Normal appearance Abdominal Wall: Normal appearance Face: Normal appearance Cord Vessels: Normal 3-Vessel Cord Lips: Normal appearance Kidneys: Normal appearance Palate: Suboptimal views Bladder: Normal appearance Thoracic: Normal appearance Spine: Suboptimal views Heart: Normal appearance Upper Extremities: Present RVOT: Normal appearance Lower Extremities: Present Doppler - Vessels --- Umbilical Artery S/D %tile RI %tile PI %tile PSV (cm/s) 3.1 83 0.68 87 1.08 88 53.25 Comment: The umbilical artery Doppler S/D is within normal limits for this gestational age. Impression 1. [place] intrauterine at 34w 6d with growth restriction. The Ac measures at the 3 rd%. 2. The amniotic fluid index was 7.2cm, which is within normal limits. 3. Normal posterior placenta, no evidence of placenta previa. 4. Normal umbilical artery Doppler assessment, the S/D was 3.1. 5. BPP 12/14. Recommendations: 1. Daily kick counts. Maternal Medicine Report 2. Twice weekly testing, weekly UA Doppler assessment. 3. Serial growth every 2 weeks. 4. Delivery timing of isolated growth restriction is 38 0/7- 39 6/7 weeks. 5. MFM consultation is available if desired. Ultrasound is not diagnostic for aneuploidy and will not detect all structural abnormalities. Normal ultrasound findings do not guarantee normal outcomes. Lois Kerr MD, PhD, FACOG Electronically Signed Final Report 01/27/2021 11:23 am Final Dictated: 01/27/2021 9:00 am Dictating Physician: LOIS KERR Signed Date and Time: 01/27/2021 11:24 am Signed by: LOIS KERR Ultrasound ACCESSION EXAM DATE/TIME PROCEDURE ORDERING PROVIDER [id number] 01/27/2021 08:57 EDT [facility] US After DO DUNCAN ALESSANDRA 1st Trimester Reason For Exam ([facility] US After 1st Trimester) HTN Report OBSTETRICS REPORT (Signed Final 01/27/2021 11:23 am) Patient Info ID #: [id number] : [birth year] (30 yrs) Name: CLARISA DE LA CRUZ Visit Date: 01/27/2021 09:00 am Performed By Attending: Lois Kerr Location: Inpatient- Hospital , PhD, FACOG Performed By: Mariann Logan RDMS Visit Type: Inpatient - Hospital Referred By: TIFFANIE DUNCAN Service(s) Provided US >= 14 weeks 12846 BPP w/out NST 93496 US Doppler umbilical art 49653 Indications Chronic hypertension, third trimester O10.913 Vital Signs Weight (lb): 198 Height: 5' (more content not included)... [facility] MFM US After 1st T rimesteron 01-27-2021 MFM US After 1st Trimester Patient Name: CLARISA DE LA CRUZ Maternal Medicine ACCESSION EXAM DATE/TIME PROCEDURE ORDERING PROVIDER [id number] 01/27/2021 08:57 EDT MFM US After DO DUNCAN ALESSANDRA 1st Trimester Reason For Exam (MFM US After 1st Trimester) [place] Report OBSTETRICS REPORT (Signed Final 01/27/2021 11:23 am) Patient Info ID #: [id number] : [birth year] (30 yrs) Name: CLARISA DE LA CRUZ Visit Date: 01/27/2021 09:00 am Performed By Attending: Lois Kerr Location: Inpatient- Hospital , PhD, FACOG Performed By: Mariann Logan RDMS Visit Type: Inpatient - Hospital Referred By: TIFFANIE DUNCAN Service(s) Provided US >= 14 weeks 77452 BPP w/out NST 65807 US Doppler umbilical art 92824 Indications Chronic hypertension, third trimester O10.913 Vital Signs Weight (lb): 198 Height: 5'8 BMI: 30.1 Evaluation Num Of Fetuses: 1 Heart Rate(bpm): 123 Cardiac Activity: Regular rhythm Lie: Longitudinal Presentation: Breech Placenta: posterior Amniotic Fluid SANDRA FV: Within normal limits SANDRA Sum(cm) %Tile Largest Pocket(cm) 7.2 3 5.2 RUQ(cm) LUQ(cm) Maternal Medicine Report 2 5.2 Biophysical Evaluation -- Amniotic F.V: Within normal limits F. Tone: Observed F. Movement: Observed Score: 8/8 F. Breathing: Observed Biometry -------- BPD: 77.2 mm G. Age: 31w 0d < 1 % CI: 70.7 % 70 - 86 OFD: 109.2 mm FL/HC: 21.7 % 20.1 - 22.3 HC: 299 mm G. Age: 33w 1d 1 % HC/AC: 1.06 0.93 - 1.11 AC: 282.1 mm G. Age: 32w 2d 3 % FL/BPD: 84.1 % 71 - 87 FL: 64.9 mm G. Age: 33w 3d 12 % FL/AC: 23.0 % 20 - 24 LV: 3.01 mm Est. FW: 2006 gm 4 lb 7 oz 14 % Gestational Age Clinical NIELS: 34w 6d NIELS: 03/04/21 U/S Today: 32w 3d NIELS: 03/21/21 Best: 34w 6d Det. By: Clinical NIELS NIELS: 03/04/21 Anatomy ------- Cranium: Normal appearance LVOT: Normal appearance Cavum: Suboptimal views Aortic Arch: Normal appearance Ventricles: Normal appearance Ductal Arch: Normal appearance Choroid Plexus: Normal appearance Diaphragm: Normal appearance Cerebellum: Normal appearance Stomach: Normal appearance Posterior Fossa: Normal appearance Abdomen: Normal appearance Nuchal Fold: Normal appearance Abdominal Wall: Normal appearance Face: Normal appearance Cord Vessels: Normal 3-Vessel Cord Lips: Normal appearance Kidneys: Normal appearance Palate: Suboptimal views Bladder: Normal appearance Thoracic: Normal appearance Spine: Suboptimal views Heart: Normal appearance Upper Extremities: Present RVOT: Normal appearance Lower Extremities: Present Doppler - Vessels --- Umbilical Artery S/D %tile RI %tile PI %tile PSV (cm/s) 3.1 83 0.68 87 1.08 88 53.25 Comment: The umbilical artery Doppler S/D is within normal limits for this gestational age. Impression 1. [place] intrauterine at 34w 6d with growth restriction. The Ac measures at the 3 rd%. 2. The amniotic fluid index was 7.2cm, which is within normal limits. 3. Normal posterior placenta, no evidence of placenta previa. 4. Normal umbilical artery Doppler assessment, the S/D was 3.1. 5. BPP 12/14. Recommendations: 1. Daily kick counts. Maternal Medicine Report 2. Twice weekly testing, weekly UA Doppler assessment. 3. Serial growth every 2 weeks. 4. Delivery timing of isolated growth restriction is 38 0/7- 39 6/7 weeks. 5. MFM consultation is available if desired. Ultrasound is not diagnostic for aneuploidy and will not detect all structural abnormalities. Normal ultrasound findings do not guarantee normal outcomes. Lois Kerr MD, PhD, FACOG Electronically Signed Final Report 01/27/2021 11:23 am Final Dictated: 01/27/2021 9:00 am Dictating Physician: LOIS KERR Signed Date and Time: 01/27/2021 11:24 am Signed by: LOIS KERR Ultrasound ACCESSION EXAM DATE/TIME PROCEDURE ORDERING PROVIDER [id number] 01/27/2021 08:57 EDT [facility] US After LAMARI, DO TIFFANIE 1st Trimester Reason For Exam ([facility] US After 1st Trimester) CHTN Report OBSTETRICS REPORT (Signed Final 01/27/2021 11:23 am) Patient Info ID #: [id number] : [birth year] (30 yrs) Name: CLARISA DE LA CRUZ Visit Date: 01/27/2021 09:00 am Performed By Attending: Lois Kerr Location: Inpatient- Hospital MD, PhD, FACOG Performed By: Mariann Logan RDMS Visit Type: Inpatient - Hospital Referred By: TIFFANIE DUNCAN Service(s) Provided US >= 14 weeks 55750 BPP w/out NST 39882 US Doppler umbilical art 68621 Indications Chronic hypertension, third trimester O10.913 Vital Signs Weight (lb): 198 Height: (more content not included)... Normal [facility] US Umbilical Artery Echo on 01-27-2021 [facility] US Umbilical Artery Echo Patient Name: CLARISA DE LA CRUZ Maternal Medicine ACCESSION EXAM DATE/TIME PROCEDURE ORDERING PROVIDER [id number] 01/27/2021 08:59 EDT MFM US After DO ONEAL HANNAH 1st Trimester Reason For Exam (MFM US After 1st Trimester) iugr Report OBSTETRICS REPORT (Signed Final 01/27/2021 11:23 am) Patient Info ID #: [id number] : [birth year] (30 yrs) Name: CLARISA DE LA CRUZ Visit Date: 01/27/2021 09:00 am Performed By Attending: Lois Kerr Location: Inpatient- Hospital , PhD, FACOG Performed By: Mariann Logan RDMS Visit Type: Inpatient - Hospital Referred By: TIFFANIE DUNCAN Service(s) Provided US >= 14 weeks 63997 BPP w/out NST 64658 US Doppler umbilical art 85788 Indications Chronic hypertension, third trimester O10.913 Vital Signs Weight (lb): 198 Height: 5'8 BMI: 30.1 Evaluation Num Of Fetuses: 1 Heart Rate(bpm): 123 Cardiac Activity: Regular rhythm Lie: Longitudinal Presentation: Breech Placenta: posterior Amniotic Fluid SANDRA FV: Within normal limits SANDRA Sum(cm) %Tile Largest Pocket(cm) 7.2 3 5.2 RUQ(cm) LUQ(cm) Maternal Medicine Report 2 5.2 Biophysical Evaluation -- Amniotic F.V: Within normal limits F. Tone: Observed F. Movement: Observed Score: 8/8 F. Breathing: Observed Biometry -------- BPD: 77.2 mm G. Age: 31w 0d < 1 % CI: 70.7 % 70 - 86 OFD: 109.2 mm FL/HC: 21.7 % 20.1 - 22.3 HC: 299 mm G. Age: 33w 1d 1 % HC/AC: 1.06 0.93 - 1.11 AC: 282.1 mm G. Age: 32w 2d 3 % FL/BPD: 84.1 % 71 - 87 FL: 64.9 mm G. Age: 33w 3d 12 % FL/AC: 23.0 % 20 - 24 LV: 3.01 mm Est. FW: 2007 gm 4 lb 7 oz 14 % Gestational Age Clinical NIELS: 34w 6d NIELS: 03/04/21 U/S Today: 32w 3d NIELS: 03/21/21 Best: 34w 6d Det. By: Clinical NIELS NIELS: 03/04/21 Anatomy ------- Cranium: Normal appearance LVOT: Normal appearance Cavum: Suboptimal views Aortic Arch: Normal appearance Ventricles: Normal appearance Ductal Arch: Normal appearance Choroid Plexus: Normal appearance Diaphragm: Normal appearance Cerebellum: Normal appearance Stomach: Normal appearance Posterior Fossa: Normal appearance Abdomen: Normal appearance Nuchal Fold: Normal appearance Abdominal Wall: Normal appearance Face: Normal appearance Cord Vessels: Normal 3-Vessel Cord Lips: Normal appearance Kidneys: Normal appearance Palate: Suboptimal views Bladder: Normal appearance Thoracic: Normal appearance Spine: Suboptimal views Heart: Normal appearance Upper Extremities: Present RVOT: Normal appearance Lower Extremities: Present Doppler - Vessels --- Umbilical Artery S/D %tile RI %tile PI %tile PSV (cm/s) 3.1 83 0.68 87 1.08 88 53.25 Comment: The umbilical artery Doppler S/D is within normal limits for this gestational age. Impression 1. [place] intrauterine at 34w 6d with growth restriction. The Ac measures at the 3 rd%. 2. The amniotic fluid index was 7.2cm, which is within normal limits. 3. Normal posterior placenta, no evidence of placenta previa. 4. Normal umbilical artery Doppler assessment, the S/D was 3.1. 5. BPP 12/14. Recommendations: 1. Daily kick counts. Maternal Medicine Report 2. Twice weekly testing, weekly UA Doppler assessment. 3. Serial growth every 2 weeks. 4. Delivery timing of isolated growth restriction is 38 0/7- 39 6/7 weeks. 5. MFM consultation is available if desired. Ultrasound is not diagnostic for aneuploidy and will not detect all structural abnormalities. Normal ultrasound findings do not guarantee normal outcomes. Lois Kerr MD, PhD, FACOG Electronically Signed Final Report 01/27/2021 11:23 am Final Dictated: 01/27/2021 9:00 am Dictating Physician: LOIS KERR Signed Date and Time: 01/27/2021 11:24 am Signed by: LOIS KERR Ultrasound ACCESSION EXAM DATE/TIME PROCEDURE ORDERING PROVIDER [id number] 01/27/2021 08:59 EDT M US After DO ONEAL HANNAH 1st Trimester Reason For Exam (M US After 1st Trimester) iugr Report OBSTETRICS REPORT (Signed Final 01/27/2021 11:23 am) Patient Info ID #: [id number] : [birth year] (30 yrs) Name: CLARISA DE LA CRUZ Visit Date: 01/27/2021 09:00 am Performed By Attending: Lois Kerr Location: Inpatient- [facility] , PhD, FACOG Performed By: Mariann Logan [facility] Visit Type: Inpatient - Hospital Referred By: TIFFANEI DUNCAN Service(s) Provided US >= 14 weeks 79746 BPP w/out NST 28733 US Doppler umbilical art 76514 Indications Chronic hypertension, third trimester O10.913 Vital Signs Weight (lb): 198 Height: 5'8 (more content not included)... Normal [facility] MRA Head w/o Contraston 01-08 MRA Head w/o Contrast Patient Name: CLARISA DE LA CRUZ [facility] ACCESSION EXAM DATE/TIME PROCEDURE ORDERING PROVIDER [id number] 01/27/2021 21:34 EDT MRA Head w/o Contrast [id number] ZulyALY SAWYER CPT code 57704 Reason For Exam (MRA Head w/o Contrast) Headache with vision changes Report CLINICAL INFORMATION: Approximately 34 week . Elevated blood pressure. Headache with unspecified visual changes. MRI brain without contrast: Sagittal T1, coronal turbo spin-echo T2 and axial turbo spin-echo T2, FLAIR, T2*gradient echo and diffusion weighted images are obtained. The ventricles and sulci are unremarkable in size and configuration. There is a prominent cisterna magna consistent with normal variation. No intra-axial mass lesion or mass-effect is seen. No areas of abnormal intra-axial signal intensity are identified. There is no abnormality of the cerebellum, midbrain, eric or medulla. The corpus callosum, optic chiasm and pituitary are unremarkable in appearance. There is no evidence of acute ischemic disease. The mastoid air cells and paranasal sinuses are clear. IMPRESSION: Negative examination. MRA intracranial circulation without contrast: Angiographic images are obtained in multiple projections using a three-dimensional time of flight maximum intensity projection (MIP) technique. No evidence for stenosis or occlusion of the basilar or internal carotid arteries, the [place] or its major branches is identified. Neither posterior communicating artery is visualized compatible with normal variation. The anterior communicating artery is not visualized. There is no evidence for aneurysm or arteriovenous malformation. The distal vertebral arteries are patent and symmetric. IMPRESSION: 1. Normal variant incomplete [place]. 2. No significant vascular abnormality. MRA neck without contrast: Magnetic Resonance Imaging Report Angiographic images are obtained in multiple projections using a two-dimensional time of flight maximum intensity projection technique. There is a three-vessel aortic arch. No evidence for stenosis or occlusion of the common, internal or external carotid arteries is identified. The vertebral arteries are patent and symmetric. IMPRESSION: No significant vascular abnormality. 0% stenosis of the bilateral common and internal carotid arteries by NASCET criteria. MRV brain without contrast: Venographic images were obtained in multiple projections using 2-D pquu-ex-jebevt maximum intensity projection and 3-D PSMRA imaging techniques. The sagittal, straight, sigmoid and transverse sinuses are widely patent. There is no evidence for deep venous thrombosis. IMPRESSION: No significant vascular abnormality. Report Dictated on Final Dictated: 01/28/2021 7:06 am Dictating Physician: MD LOZOYA HARLAN Signed Date and Time: 01/28/2021 7:33 am Signed by: MD LOZOYA HARLAN Transcribed Date and Time: 01/28/2021 7:06 Normal [facility] MRA Neck w/o Contraston 01-08 MRA Neck w/o Contrast Patient Name: CLARISA DE LA CRUZ [facility] ACCESSION EXAM DATE/TIME PROCEDURE ORDERING PROVIDER [id number] 01/27/2021 21:34 EDT MRA Neck w/o Contrast [id number] ZulyGINARUBYMERVAT SAWYER CPT code 48000 Reason For Exam (MRA Neck w/o Contrast) Headache with vision changes Report CLINICAL INFORMATION: Approximately 34 week . Elevated blood pressure. Headache with unspecified visual changes. MRI brain without contrast: Sagittal T1, coronal turbo spin-echo T2 and axial turbo spin-echo T2, FLAIR, T2*gradient echo and diffusion weighted images are obtained. The ventricles and sulci are unremarkable in size and configuration. There is a prominent cisterna magna consistent with normal variation. No intra-axial mass lesion or mass-effect is seen. No areas of abnormal intra-axial signal intensity are identified. There is no abnormality of the cerebellum, midbrain, eric or medulla. The corpus callosum, optic chiasm and pituitary are unremarkable in appearance. There is no evidence of acute ischemic disease. The mastoid air cells and paranasal sinuses are clear. IMPRESSION: Negative examination. MRA intracranial circulation without contrast: Angiographic images are obtained in multiple projections using a three-dimensional time of flight maximum intensity projection (MIP) technique. No evidence for stenosis or occlusion of the basilar or internal carotid arteries, the [place] or its major branches is identified. Neither posterior communicating artery is visualized compatible with normal variation. The anterior communicating artery is not visualized. There is no evidence for aneurysm or arteriovenous malformation. The distal vertebral arteries are patent and symmetric. IMPRESSION: 1. Normal variant incomplete [place]. 2. No significant vascular abnormality. MRA neck without contrast: Magnetic Resonance Imaging Report Angiographic images are obtained in multiple projections using a two-dimensional time of flight maximum intensity projection technique. There is a three-vessel aortic arch. No evidence for stenosis or occlusion of the common, internal or external carotid arteries is identified. The vertebral arteries are patent and symmetric. IMPRESSION: No significant vascular abnormality. 0% stenosis of the bilateral common and internal carotid arteries by NASCET criteria. MRV brain without contrast: Venographic images were obtained in multiple projections using 2-D nzdd-xd-zxhooj maximum intensity projection and 3-D PSMRA imaging techniques. The sagittal, straight, sigmoid and transverse sinuses are widely patent. There is no evidence for deep venous thrombosis. IMPRESSION: No significant vascular abnormality. Report Dictated on Final Dictated: 01/28/2021 7:06 am Dictating Physician: MD LOZOYA HARLAN Signed Date and Time: 01/28/2021 7:33 am Signed by: MD LOZOYA HARLAN Transcribed Date and Time: 01/28/2021 7:06 Normal [facility] MRI Brain w/o Contraston MRI Brain w/o Contrast Patient Name: CLARISA DE AL CRUZ [facility] ACCESSION EXAM DATE/TIME PROCEDURE ORDERING PROVIDER [id number] 01/27/2021 21:34 EDT MRI Brain w/o Contrast SAWYER HORTA CPT code 82173 Reason For Exam (MRI Brain w/o Contrast) Headache with vision changes Report CLINICAL INFORMATION: Approximately 34 week . Elevated blood pressure. Headache with unspecified visual changes. MRI brain without contrast: Sagittal T1, coronal turbo spin-echo T2 and axial turbo spin-echo T2, FLAIR, T2*gradient echo and diffusion weighted images are obtained. The ventricles and sulci are unremarkable in size and configuration. There is a prominent cisterna magna consistent with normal variation. No intra-axial mass lesion or mass-effect is seen. No areas of abnormal intra-axial signal intensity are identified. There is no abnormality of the cerebellum, midbrain, eric or medulla. The corpus callosum, optic chiasm and pituitary are unremarkable in appearance. There is no evidence of acute ischemic disease. The mastoid air cells and paranasal sinuses are clear. IMPRESSION: Negative examination. MRA intracranial circulation without contrast: Angiographic images are obtained in multiple projections using a three-dimensional time of flight maximum intensity projection (MIP) technique. No evidence for stenosis or occlusion of the basilar or internal carotid arteries, the [place] or its major branches is identified. Neither posterior communicating artery is visualized compatible with normal variation. The anterior communicating artery is not visualized. There is no evidence for aneurysm or arteriovenous malformation. The distal vertebral arteries are patent and symmetric. IMPRESSION: 1. Normal variant incomplete [place]. 2. No significant vascular abnormality. MRA neck without contrast: Magnetic Resonance Imaging Report Angiographic images are obtained in multiple projections using a two-dimensional time of flight maximum intensity projection technique. There is a three-vessel aortic arch. No evidence for stenosis or occlusion of the common, internal or external carotid arteries is identified. The vertebral arteries are patent and symmetric. IMPRESSION: No significant vascular abnormality. 0% stenosis of the bilateral common and internal carotid arteries by NASCET criteria. MRV brain without contrast: Venographic images were obtained in multiple projections using 2-D fedf-dn-zxvtlw maximum intensity projection and 3-D PSMRA imaging techniques. The sagittal, straight, sigmoid and transverse sinuses are widely patent. There is no evidence for deep venous thrombosis. IMPRESSION: No significant vascular abnormality. Report Dictated on Final Dictated: 01/28/2021 7:06 am Dictating Physician: MD LOZOYA HARLAN Signed Date and Time: 01/28/2021 7:33 am Signed by: MD LOZOYA HARLAN Transcribed Date and Time: 01/28/2021 7:06 Normal [facility] MRV Headon 01-27-2021 MRV Head Patient Name: [id number] Magnetic Resonance Imaging ACCESSION EXAM DATE/TIME PROCEDURE ORDERING PROVIDER [id number] 01/27/2021 21:34 EDT MRV Head SAWYER HORTA CPT code 10028 Reason For Exam (MRV Head) Headache with vision changes Without contrast Report CLINICAL INFORMATION: Approximately 34 week . Elevated blood pressure. Headache with unspecified visual changes. MRI brain without contrast: Sagittal T1, coronal turbo spin-echo T2 and axial turbo spin-echo T2, FLAIR, T2*gradient echo and diffusion weighted images are obtained. The ventricles and sulci are unremarkable in size and configuration. There is a prominent cisterna magna consistent with normal variation. No intra-axial mass lesion or mass-effect is seen. No areas of abnormal intra-axial signal intensity are identified. There is no abnormality of the cerebellum, midbrain, eric or medulla. The corpus callosum, optic chiasm and pituitary are unremarkable in appearance. There is no evidence of acute ischemic disease. The mastoid air cells and paranasal sinuses are clear. IMPRESSION: Negative examination. MRA intracranial circulation without contrast: Angiographic images are obtained in multiple projections using a three-dimensional time of flight maximum intensity projection (MIP) technique. No evidence for stenosis or occlusion of the basilar or internal carotid arteries, the [place] or its major branches is identified. Neither posterior communicating artery is visualized compatible with normal variation. The anterior communicating artery is not visualized. There is no evidence for aneurysm or arteriovenous malformation. The distal vertebral arteries are patent and symmetric. IMPRESSION: 1. Normal variant incomplete [place]. 2. No significant vascular abnormality. MRA neck without contrast: Magnetic Resonance Imaging Report Angiographic images are obtained in multiple projections using a two-dimensional time of flight maximum intensity projection technique. There is a three-vessel aortic arch. No evidence for stenosis or occlusion of the common, internal or external carotid arteries is identified. The vertebral arteries are patent and symmetric. IMPRESSION: No significant vascular abnormality. 0% stenosis of the bilateral common and internal carotid arteries by NASCET criteria. MRV brain without contrast: Venographic images were obtained in multiple projections using 2-D pzek-de-corqyj maximum intensity projection and 3-D PSMRA imaging techniques. The sagittal, straight, sigmoid and transverse sinuses are widely patent. There is no evidence for deep venous thrombosis. IMPRESSION: No significant vascular abnormality. Report Dictated on Final Dictated: 01/28/2021 7:06 am Dictating Physician: MD LOZOYA HARLAN Signed Date and Time: 01/28/2021 7:33 am Signed by: MD LOZOYA HARLAN Transcribed Date and Time: 01/28/2021 7:06 Normal [facility] Protein, Ur Randomon 021 Protein, Ur Random 7 mg/dL Normal No Range [facility] Comment on above: Performed By: #### T PUR, CRTUR #### [facility] [address] [place] [id number] TS GELon 01-27-2021 TS GEL ABO Group: O Rh, Gel: POS Antibody Screen Gel: NEG Normal [facility] Comment on above: Performed By: #### T SGL #### [facility] Progress Noteon 12-03-2020 Graphic Design Manager Authentication Interface Message Text This is a telemedicine (video) visit requested by the patient that was performed with the originating site at home and the distant site at the physician's home. This visit occurred during the Coronavirus (COVID-19) Public Health Emergency. Due to a connectivity issue, most of the visit was via telephone. Consultation has been requested by Stevo Wilkins Reason for Consult History of fractures, osteoporosis, loss History: (Detailed history is noted in the genetic counselor's note) Please refer to the ultrasound report for full details. Genetic Counseling Summary I discussed with the patient the following issues: 1. Noninvasive versus invasive methods for detection of aneuploidy 2. Follow up ultrasound examinations as scheduled 3. Genetics referral for Clarisa to determine her diagnosis. Without this, risk to fetus/ cannot be accurately determined. Follow Up She expressed understanding of the above information. The total patient time of the visit was 15 minutes, of which greater than 50% of the time was spent counseling and coordinating care. Discussion topics are listed above. Nila Cole MD [facility] Progress Noteon 11-26-2020 Graphic Design Manager Authentication Interface Message Text MFM Transfer line I was called by Dr. Elton Wilkins in [place] about this patient who was last seen in 2018 in our office. She is currently at 26 weeks and has a history of POTS with prior fractures up to 16x when not related to falls from her POTS. I reviewed the consult from 2018 and the patient had declined any further testing for OI. Dr. Stevo Wilkins was calling to ask about mode of delivery for this patient and reports that she has had a normal anatomy on the fetus this . Dr. KILLIAN was inquiring if a was indicated. Based upon the last notes I am not able to comment on this specifically but if she is otherwise normal and does not have documentation of OI and her child is not affected I would not feel as though a would be necessary. I did request that she send the patient for consultation with genetics during this and we can also look at the fetus for concerns of fractures and then perform a formal consultation to address mode of delivery. I did not make any formal recommendation for anything other than a consult in our discussion today with her call. I also had nursing re-fax her consultation note as Dr. KILLIAN stated it was incomplete in the patient's chart. Lorena Patton MD [facility] Vital Signs Date Time Vital Sign Value Performing Clinician Facility 01-08-2025 13:52-0400 Body mass index (BMI) [Ratio] 29.16 kg/m2 Geovanna Avilez APRN.CNM Work Phone: [facility] 01-08-2025 13:52-0400 Body weight 85.73 kg Geovanna Avilez APRN.CNM Work Phone: [facility] 01-08-2025 13:52-0400 Diastolic blood pressure 80 mm[Hg] Geovanna Avilez APRN.CNM Work Phone: [facility] 01-08-2025 13:52-0400 Systolic blood pressure 124 mm[Hg] Geovanna Avilez APRN.CNM Work Phone: [facility] 10-22-2024 13:30-0400 Body mass index (BMI) [Ratio] 28.55 kg/m2 Geovanna Avilez APRN.CNM Work Phone: [facility] 10-22-2024 13:30-0400 Body weight 83.92 kg Geovanna Avilez APRN.CNM Work Phone: [facility] 10-22-2024 13:30-0400 Diastolic blood pressure 72 mm[Hg] Geovanna Avilez APRN.CNM Work Phone: [facility] 10-22-2024 13:30-0400 Systolic blood pressure 118 mm[Hg] Geovanna Avilez APRN.CNM Work Phone: [facility] 09-30-2024 15:00-0400 Body height 171.5 cm Jeniffer Styles APRN.CHECK WEIGHER Work Phone: [facility] 09-30-2024 15:00-0400 Body mass index (BMI) [Ratio] 28.55 kg/m2 Jeniffer Styles APRN.CHECK WEIGHER Work Phone: [facility] 09-30-2024 15:00-0400 Body temperature 98.29 [degF] Jeniffer Styles APRN.CHECK WEIGHER Work Phone: [facility] 09-30-2024 15:00-0400 Body weight 83.92 kg Jeniffer Styles APRN.CHECK WEIGHER Work Phone: [facility] 09-30-2024 15:00-0400 Diastolic blood pressure 80 mm[Hg] Jeniffer Styles APRN.CHECK WEIGHER Work Phone: [facility] 09-30-2024 15:00-0400 Heart rate 96 /min Jeniffer Styles APRN.CHECK WEIGHER Work Phone: [facility] 09-30-2024 15:00-0400 SaO2% (BldA) [Mass fraction] 98 % Jeniffer Styles APRN.CHECK WEIGHER Work Phone: [facility] 09-30-2024 15:00-0400 Systolic blood pressure 140 mm[Hg] Jeniffer Styles APRN.CHECK WEIGHER Work Phone: [facility] 01-16-2024 10:34-0400 Body mass index (BMI) [Ratio] 27.78 kg/m2 Tabby Krueger MD Work Phone: [facility] 01-16-2024 10:34-0400 Body weight 81.65 kg Tabby Krueger MD Work Phone: [facility] 01-16-2024 10:34-0400 Diastolic blood pressure 74 mm[Hg] Tabby Krueger MD Work Phone: [facility] 01-16-2024 10:34-0400 Systolic blood pressure 124 mm[Hg] Tabby Krueger MD Work Phone: [facility] 01-02-2024 13:33-0400 Body mass index (BMI) [Ratio] 27.78 kg/m2 Jen Dale MD Work Phone: [facility] 01-02-2024 13:33-0400 Body weight 81.65 kg Jen Dale MD Work Phone: [facility] 01-02-2024 13:33-0400 Diastolic blood pressure 86 mm[Hg] Jen Dale MD Work Phone: [facility] 01-02-2024 13:33-0400 Systolic blood pressure 136 mm[Hg] Jen Dale MD Work Phone: [facility] 12-05-2023 15:17-0400 Body mass index (BMI) [Ratio] 29.32 kg/m2 Geovanna Avilez APRN.CNM Work Phone: [facility] 12-05-2023 15:17-0400 Body weight 86.18 kg Geovanna Avilez ARBORICULTURIST.CNM Work Phone: [facility] 12-05-2023 15:17-0400 Diastolic blood pressure 86 mm[Hg] Geovanna Raghav ARBORICULTURIST.CNM Work Phone: [facility] 12-05-2023 15:17-0400 Systolic blood pressure 138 mm[Hg] Geovanna Avilez APRN.CNM Work Phone: [facility] 11-28-2023 11:09-0400 Body mass index (BMI) [Ratio] 31.17 kg/m2 Geovanna Avilez ARBORICULTURIST.CNM Work Phone: [facility] 11-28-2023 11:09-0400 Body weight 91.63 kg Geovanna Avilez ARBORICULTURIST.CNM Work Phone: [facility] 11-28-2023 11:09-0400 Diastolic blood pressure 77 mm[Hg] Geovanna Avilez ARBORICULTURIST.CNM Work Phone: [facility] 11-28-2023 11:09-0400 Systolic blood pressure 114 mm[Hg] Geovanna Avilez ARBORICULTURIST.CNM Work Phone: [facility] 11-25-2023 09:22-0400 Body mass index (BMI) [Ratio] 31.48 kg/m2 Jen Dale MD Work Phone: [facility] 11-25-2023 09:22-0400 Body weight 92.53 kg Jen Dale MD Work Phone: [facility] 11-25-2023 09:22-0400 Diastolic blood pressure 72 mm[Hg] Jen Dale MD Work Phone: [facility] 11-25-2023 09:22-0400 Systolic blood pressure 128 mm[Hg] Jen Dale MD Work Phone: [facility] 11-21-2023 13:27-0400 Body mass index (BMI) [Ratio] 31.48 kg/m2 Delmy Brasher MD Work Phone: [facility] 11-21-2023 13:27-0400 Body weight 92.53 kg Delmy Brasher MD Work Phone: [facility] 11-21-2023 13:27-0400 Diastolic blood pressure 72 mm[Hg] Delmy Brasher MD Work Phone: [facility] 11-21-2023 13:27-0400 Systolic blood pressure 108 mm[Hg] Delmy Brasher MD Work Phone: [facility] 11-18-2023 09:37-0400 Body mass index (BMI) [Ratio] 31.02 kg/m2 Geovanna Avilez ARBORICULTURIST.CNM Work Phone: [facility] 11-18-2023 09:37-0400 Body weight 91.17 kg Geovanna Avilez ARBORICULTURIST.CNM Work Phone: [facility] 11-18-2023 09:37-0400 Diastolic blood pressure 80 mm[Hg] Geovanna Avilez ARBORICULTURIST.CNM Work Phone: [facility] 11-18-2023 09:37-0400 Systolic blood pressure 126 mm[Hg] Geovanna Avilez ARBORICULTURIST.CNM Work Phone: [facility] 11-15-2023 13:27-0400 Body mass index (BMI) [Ratio] 31.29 kg/m2 Maximilian Valdovinos MD Work Phone: [facility] 11-15-2023 13:27-0400 Body weight 91.99 kg Maximilian Valdovinos MD Work Phone: [facility] 11-15-2023 13:27-0400 Diastolic blood pressure 80 mm[Hg] Maximilian Valdovinos MD Work Phone: [facility] 11-15-2023 13:27-0400 Systolic blood pressure 126 mm[Hg] Maximilian Valdovinos MD Work Phone: [facility] 11-11-2023 13:19-0400 Body mass index (BMI) [Ratio] 31.33 kg/m2 Maximilian Valdovinos MD Work Phone: [facility] 11-11-2023 13:19-0400 Body weight 92.08 kg Maximilian Valdovinos MD Work Phone: [facility] 11-11-2023 13:19-0400 Diastolic blood pressure 64 mm[Hg] Maximilian Valdovinos MD Work Phone: [facility] 11-11-2023 13:19-0400 Systolic blood pressure 112 mm[Hg] Maximilian Valdovinos MD Work Phone: [facility] 11-07-2023 09:41-0400 Body mass index (BMI) [Ratio] 31.33 kg/m2 Jen Dale MD Work Phone: [facility] 11-07-2023 09:41-0400 Body weight 92.08 kg Jen Dale MD Work Phone: [facility] 11-07-2023 09:41-0400 Diastolic blood pressure 78 mm[Hg] Jen Dale MD Work Phone: [facility] 11-07-2023 09:41-0400 Systolic blood pressure 118 mm[Hg] Jen Dale MD Work Phone: [facility] 11-04-2023 10:12-0400 Body mass index (BMI) [Ratio] 30.86 kg/m2 Tabby Krueger MD Work Phone: [facility] 11-04-2023 10:12-0400 Body weight 90.72 kg Tabby Krueger MD Work Phone: [facility] 11-04-2023 10:12-0400 Diastolic blood pressure 83 mm[Hg] Tabby Krueger MD Work Phone: [facility] 11-04-2023 10:12-0400 Systolic blood pressure 125 mm[Hg] Tabby Krueger MD Work Phone: [facility] 11-01-2023 10:36-0400 Body mass index (BMI) [Ratio] 30.89 kg/m2 Maximilian Valdovinos MD Work Phone: [facility] 11-01-2023 10:36-0400 Body weight 90.81 kg Maximilian Valdovinos MD Work Phone: [facility] 11-01-2023 10:36-0400 Diastolic blood pressure 60 mm[Hg] Maximilian Valdovinos MD Work Phone: [facility] 11-01-2023 10:36-0400 Systolic blood pressure 100 mm[Hg] Maximilian Valdovinos MD Work Phone: [facility] 10-26-2023 09:47-0400 Body mass index (BMI) [Ratio] 30.71 kg/m2 Jen Dale MD Work Phone: [facility] 10-26-2023 09:47-0400 Body weight 90.27 kg Jen Dale MD Work Phone: [facility] 10-26-2023 09:47-0400 Diastolic blood pressure 82 mm[Hg] Jen Dale MD Work Phone: [facility] 10-26-2023 09:47-0400 Systolic blood pressure 134 mm[Hg] Jen Dale MD Work Phone: [facility] 10-25-2023 14:51-0400 Body mass index (BMI) [Ratio] 30.74 kg/m2 Seferino Medina MD Work Phone: [facility] 10-25-2023 14:51-0400 Body weight 90.36 kg Seferino Medina MD Work Phone: [facility] 10-25-2023 14:51-0400 Diastolic blood pressure 78 mm[Hg] Seferino Medina MD Work Phone: [facility] 10-25-2023 14:51-0400 Systolic blood pressure 138 mm[Hg] Seferino Medina MD Work Phone: [facility] 10-21-2023 08:31-0400 Body mass index (BMI) [Ratio] 30.49 kg/m2 Maximilian Valdovinos MD Work Phone: [facility] 10-21-2023 08:31-0400 Body weight 89.63 kg Maximilian Valdovinos MD Work Phone: [facility] 10-21-2023 08:31-0400 Diastolic blood pressure 69 mm[Hg] Maximilian Valdovinos MD Work Phone: [facility] 10-21-2023 08:31-0400 Systolic blood pressure 109 mm[Hg] Maximilian Valdovinos MD Work Phone: [facility] 10-18-2023 09:29-0400 Body mass index (BMI) [Ratio] 30.34 kg/m2 Maximilian Valdovinos MD Work Phone: [facility] 10-18-2023 09:29-0400 Body weight 89.18 kg Maximilian Valdovinos MD Work Phone: [facility] 10-18-2023 09:29-0400 Diastolic blood pressure 72 mm[Hg] Maximilian Valdovinos MD Work Phone: [facility] 10-18-2023 09:29-0400 Systolic blood pressure 118 mm[Hg] Maximilian Valdovinos MD Work Phone: [facility] 10-14-2023 10:33-0400 Diastolic blood pressure 82 mm[Hg] Jen Dale MD Work Phone: [facility] 10-14-2023 10:33-0400 Systolic blood pressure 126 mm[Hg] Jen Dale MD Work Phone: [facility] 10-11-2023 10:56-0400 Body mass index (BMI) [Ratio] 30.09 kg/m2 Jasmina Collazo MD Work Phone: [facility] 10-11-2023 10:56-0400 Body weight 88.45 kg Jasmina Collazo MD Work Phone: [facility] 10-11-2023 10:56-0400 Diastolic blood pressure 82 mm[Hg] Jasmina Collazo MD Work Phone: [facility] 10-11-2023 10:56-0400 Systolic blood pressure 124 mm[Hg] Jasmina Collazo MD Work Phone: [facility] 09-14-2023 16:19-0400 Body mass index (BMI) [Ratio] 29.01 kg/m2 Tabby Krueger MD Work Phone: [facility] 09-14-2023 16:19-0400 Body weight 85.28 kg Tabby Krueger MD Work Phone: [facility] 09-14-2023 16:19-0400 Diastolic blood pressure 74 mm[Hg] Tabby Krueger MD Work Phone: [facility] 09-14-2023 16:19-0400 Systolic blood pressure 122 mm[Hg] Tabby Krueger MD Work Phone: [facility] 09-14-2023 15:22-0400 Diastolic blood pressure 79 mm[Hg] [facility] 09-14-2023 15:22-0400 Heart rate 85 /min [facility] 09-14-2023 15:22-0400 Systolic blood pressure 130 mm[Hg] [facility] 09-14-2023 15:18-0400 SaO2% (BldA) [Mass fraction] 98 % [facility] 09-14-2023 15:12-0400 Body temperature 98.5 [degF] [facility] 09-14-2023 15:12-0400 Respiratory rate 15 /min [facility] 09-14-2023 15:01-0400 Body height 172.72 cm [facility] 09-14-2023 15:01-0400 Body mass index (BMI) [Ratio] 28.7 kg/m2 [facility] 09-14-2023 15:01-0400 Body weight 85.72 kg [facility] 09-07-2023 16:06-0400 Body mass index (BMI) [Ratio] 29.01 kg/m2 Jen Dale MD Work Phone: [facility] 09-07-2023 16:06-0400 Body weight 85.28 kg Jen Dale MD Work Phone: [facility] 09-07-2023 16:06-0400 Diastolic blood pressure 74 mm[Hg] Jen Dale MD Work Phone: [facility] 09-07-2023 16:06-0400 Systolic blood pressure 124 mm[Hg] Jen Dale MD Work Phone: [facility] 08-16-2023 07:57-0400 Body weight 84.01 kg Jasmina Collazo MD Work Phone: [facility] 08-16-2023 07:57-0400 Diastolic blood pressure 80 mm[Hg] Jasmina Collazo MD Work Phone: [facility] 08-16-2023 07:57-0400 Systolic blood pressure 134 mm[Hg] Jasmina Collazo MD Work Phone: [facility] 08-02-2023 10:51-0400 Body height 171.5 cm Sneha Mikula ARBORICULTURIST.CHECK WEIGHER Work Phone: [facility] 08-02-2023 10:51-0400 Body weight 84.82 kg Sneha Mikula ARBORICULTURIST.CHECK WEIGHER Work Phone: [facility] 08-02-2023 10:51-0400 Diastolic blood pressure 76 mm[Hg] Sneha Mikula ARBORICULTURIST.CHECK WEIGHER Work Phone: [facility] 08-02-2023 10:51-0400 Heart rate 81 /min Sneha Mikula ARBORICULTURIST.CHECK WEIGHER Work Phone: [facility] 08-02-2023 10:51-0400 Systolic blood pressure 109 mm[Hg] Sneha Mikula ARBORICULTURIST.CHECK WEIGHER Work Phone: [facility] 07-25-2023 15:35-0400 Body weight 84.19 kg Geovanna Avilez ARBORICULTURIST.CNM Work Phone: [facility] 07-25-2023 15:35-0400 Diastolic blood pressure 80 mm[Hg] Geovanna Avilez ARBORICULTURIST.CNM Work Phone: [facility] 07-25-2023 15:35-0400 Systolic blood pressure 118 mm[Hg] Geovanna Avilez ARBORICULTURIST.CNM Work Phone: [facility] 07-13-2023 15:36-0500 Body weight 83.92 kg Ivett Hatopher ARBORICULTURIST.CHECK WEIGHER Work Phone: [facility] 07-13-2023 15:36-0500 Diastolic blood pressure 70 mm[Hg] Ivett Haury ARBORICULTURIST.CHECK WEIGHER Work Phone: [facility] 07-13-2023 15:36-0500 Systolic blood pressure 114 mm[Hg] Ivett Palomo ARBORICULTURIST.CHECK WEIGHER Work Phone: [facility] 07-01-2023 14:40-0500 Body height 171.5 cm Ivett Palomo ARBORICULTURIST.CHECK WEIGHER Work Phone: [facility] 07-01-2023 14:40-0500 Body weight 82.64 kg Ivett Palomo ARBORICULTURIST.CHECK WEIGHER Work Phone: [facility] 05-06-2023 13:53-0500 Body height 172.7 cm Jean Govea ARBORICULTURIST-CHECK WEIGHER Work Phone: [facility] 05-06-2023 13:53-0500 Body mass index (BMI) [Ratio] 27.69 kg/m2 Jean Govea ARBORICULTURIST-CHECK WEIGHER Work Phone: [facility] 05-06-2023 13:53-0500 Body weight 82.6 kg Jean Govea ARBORICULTURIST-CHECK WEIGHER Work Phone: [facility] 05-06-2023 13:53-0500 Diastolic blood pressure 75 mm[Hg] Jean Govea ARBORICULTURIST-CHECK WEIGHER Work Phone: [facility] 05-06-2023 13:53-0500 Systolic blood pressure 112 mm[Hg] Jean Govea ARBORICULTURIST-CHECK WEIGHER Work Phone: [facility] 04-24-2023 08:11-0500 Body temperature 98.29 [degF] Julio Bunn MD Work Phone: [facility] 04-24-2023 08:11-0500 Diastolic blood pressure 74 mm[Hg] Julio Bunn MD Work Phone: [facility] 04-24-2023 08:11-0500 Heart rate 83 /min Julio Bunn MD Work Phone: [facility] 04-24-2023 08:11-0500 Respiratory rate 16 /min Julio Bunn MD Work Phone: [facility] 04-24-2023 08:11-0500 SaO2% (BldA) [Mass fraction] 97 % Julio Bunn MD Work Phone: [facility] 04-24-2023 08:11-0500 Systolic blood pressure 141 mm[Hg] Julio Bunn MD Work Phone: [phone] [address] 04-23-2023 22:56-0500 Body mass index (BMI) [Ratio] 27.67 kg/m2 Julio Bunn MD Work Phone: 4(125)[phone] [place] [address] 04-23-2023 22:56-0500 Body weight 82.56 kg Julio Bunn MD Work Phone: 1(966)[phone] [place] [address] 04-23-2023 16:32-0500 Body height 172.7 cm Julio Bunn MD Work Phone: [facility] 06-05-2022 08:16-0500 Body temperature 97.59 [degF] Krislyn Aberegg PA Work Phone: [facility] 06-05-2022 08:16-0500 Body weight 80.29 kg Krislyn Aberegg PA Work Phone: [facility] 06-05-2022 08:16-0500 Diastolic blood pressure 80 mm[Hg] Krislyn Aberegg PA Work Phone: [facility] 06-05-2022 08:16-0500 Heart rate 74 /min Krislyn Aberegg PA Work Phone: [facility] 06-05-2022 08:16-0500 Respiratory rate 16 /min Krislyn Aberegg PA Work Phone: [facility] 06-05-2022 08:16-0500 SaO2% (BldA) [Mass fraction] 98 % Krislyn Aberegg PA Work Phone: [facility] 06-05-2022 08:16-0500 Systolic blood pressure 130 mm[Hg] David WHITE Work Phone: [facility] Encounters Encounter Date Encounter Type Care Provider Facility Start: 04-25-2025 ambulatory Tabyb Krueger Iza [facility] Start: 02-07-2025 End: 02-07-2025 ambulatory TABBY KRUEGER Facility:[facility] Start: 01-08-2025 End: 01-08-2025 Patient encounter procedure Geovanna Avilez APRN.CNM Work Phone: OB/Gynecology Comment on above: Abnormal uterine ble eding (AUB) (Primary Dx); Adenomyosis of uterus; Irregular menstruation Start: 01-08-2025 End: 01-08-2025 ambulatory GEOVANNA AVILEZ Facility:[facility] Start: 12-25-2024 End: 12-25-2024 Telephone encounter Geovanna Avilez APRN.CNM Work Phone: OB/Gynecology Comment on above: Heavy Bleeding Start: 11-05-2024 End: 11-05-2024 Telemedicine consultation with patient Geovannaronn Avilez APRN.CNM Work Phone: OB/Gynecology Start: 11-05-2024 End: 11-05-2024 ambulatory Geovanna Avilez APRN.CNM Work Phone: OB/Gynecology Comment on above: Adenomyosis of uteru s; Irregular menstruation Start: 10-30-2024 End: 10-31-2024 ambulatory Geovanna Avilez APRN.CNM Work Phone: OB/Gynecology Comment on above: Ultrasound results Start: 10-26-2024 End: 10-26-2024 Patient encounter procedure Us Tech [facility] OB/Gynecology Start: 10-26-2024 End: 10-26-2024 ambulatory 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[employer] Work Phone: OB/Gynecology Start: 10-23-2024 End: 12-23-2024 Follow-up encounter Geovanna Avilez APRN.CNM Work Phone: OB/Gynecology Start: 10-22-2024 End: 10-22-2024 Patient encounter procedure Geovanna Avilez APRN.CNM Work Phone: OB/Gynecology Comment on above: Abnormal uterine ble eding (AUB) (Primary Dx); Dysmenorrhea Start: 10-22-2024 End: 10-22-2024 ambulatory GEOVANNA RAGHAV Facility:[facility] Start: 09-30-2024 End: 09-30-2024 Patient encounter procedure Jeniffer King TIRSO.CHECK WEIGHER Work Phone: [facility] Comment on above: Sinobronchitis (Prim lauro Dx) Start: 09-30-2024 End: 09-30-2024 ambulatory SELF Facility:[facility] Start: 06-27-2024 End: 06-28-2024 Emergency department patient visit Ottonieljohn Encarnacion Facility:[facility] Start: 04-09-2024 ambulatory JHON GONZALES [facility] Start: 02-16-2024 End: 02-16-2024 Orders Only Sneha Cardenas APRN.CHECK WEIGHER Work Phone: NEUROLOGY Comment on above: TIA (transient ische dafne attack) (Primary Dx) Start: 01-16-2024 End: 01-16-2024 Patient encounter procedure Tabby Krueger MD Work Phone: OB/Gynecology Comment on above: care and examination (Primary Dx); Encounter for screening for malignant neoplasm of cervix Start: 01-10-2024 End: 01-10-2024 ambulatory Silvestre Mina APRN.CHECK WEIGHER Work Phone: Neurology Headache [facility] Comment on above: Migraine with aura a nd without status migrainosus, not intractable Start: 01-10-2024 End: 01-10-2024 Telemedicine consultation with patient Silvestre Mina APRN.CHECK WEIGHER Work Phone: Neurology Headache [facility] Start: 01-02-2024 End: 01-02-2024 Patient encounter procedure Jen Dale MD Work Phone: OB/Gynecology Comment on above: Dysuria (Primary Dx) Start: 12-09-2023 ambulatory Jen Dale MD Work Phone: OB/Gynecology Comment on above: Infection Start: 12-05-2023 End: 12-05-2023 Patient encounter procedure Geovanna Avilez CNM Work Phone: OB/Gynecology Comment on above: S/P section (Primary Dx); Chronic hypertension Start: 12-02-2023 Telephone encounter Tabby Krueger MD Work Phone: OB/Gynecology Comment on above: Medication Update Start: 12-01-2023 ambulatory Tabby murillo MD Work Phone: OB/Gynecology Comment on above: Ob Delivery Note Start: 11-29-2023 ambulatory Jen Dale MD Work Phone: OB/Gynecology Comment on above: Blood pressure log Start: 11-28-2023 End: 11-28-2023 Patient encounter procedure 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[facility] Work Phone: OB/Gynecology Comment on above: Chronic hypertension complicating or reason for care during childbirth (Primary Dx); History of intrauterine in previous ; 35 weeks gestation of Encounter for superv ision of high risk in third trimester, antepartum (Primary Dx); 35 weeks gestation of ; History of intrauterine in previous ; Chronic hypertension affecting ; History of section; History of pre-eclampsia; POTS (postural orthostatic tachycardia syndrome); TIA (transient ischemic attack) Start: 11-25-2023 End: 11-25-2023 Patient encounter procedure Jen Dale MD Work Phone: OB/Gynecology Comment on above: High-risk in third trimester (Primary Dx); Chronic hypertension complicating or reason for care during childbirth; History of intrauterine in previous ; Chronic hypertension affecting ; 34 weeks gestation of Start: 11-21-2023 End: 11-21-2023 Patient encounter procedure Delmy Brasher MD Work Phone: OB/Gynecology Comment on above: 34 weeks gestation o f (Primary Dx); High-risk in third trimester; Chronic hypertension complicating or reason for care during childbirth History of intrauter ine in previous (Primary Dx); Chronic hypertension complicating or reason for care during childbirth; 34 weeks gestation of Start: 11-18-2023 End: 11-18-2023 Patient encounter procedure Geovanna Avilez APRN.CNM Work Phone: OB/Gynecology Comment on above: 33 weeks gestation o f (Primary Dx); High-risk in third trimester; Chronic hypertension complicating or reason for care during childbirth; History of intrauterine in previous ; Hypertension affecting in third trimester Start: 11-15-2023 End: 11-15-2023 Patient encounter procedure Maximilian Valdovinos MD Work Phone: OB/Gynecology Comment on above: 33 weeks gestation o f (Primary Dx); Chronic hypertension affecting ; High-risk in third trimester Hypertension affecti ng in third trimester (Primary Dx); Chronic hypertension complicating or reason for care during childbirth; History of intrauterine in previous ; 33 weeks gestation of Start: 11-11-2023 End: 11-11-2023 Patient encounter procedure Maximilian Valdovinos MD Work Phone: OB/Gynecology Comment on above: Chronic hypertension affecting (Primary Dx); History of intrauterine in previous Start: 11-07-2023 End: 11-07-2023 Patient encounter procedure Jen Dale MD Work Phone: OB/Gynecology Comment on above: Chronic hypertension complicating or reason for care during childbirth (Primary Dx); High-risk in third trimester; History of intrauterine in previous ; 32 weeks gestation of 32 weeks gestation o f (Primary Dx); Chronic hypertension complicating or reason for care during childbirth; History of intrauterine in previous Start: 11-04-2023 End: 11-04-2023 Patient encounter procedure Tabby Krueger MD Work Phone: OB/Gynecology Comment on above: High-risk in third trimester (Primary Dx); 31 weeks gestation of ; Chronic hypertension complicating or reason for care during childbirth Start: 11-01-2023 End: 11-01-2023 Patient encounter procedure Maximilian Valdovinos MD Work Phone: OB/Gynecology Comment on above: 31 weeks gestation o f (Primary Dx); Encounter for supervision of high risk in third trimester, antepartum; History of intrauterine in previous Chronic hypertension complicating or reason for care during childbirth; History of intrauterine in previous Start: 10-31-2023 ambulatory Jen Dale MD Work Phone: OB/Gynecology Comment on above: Not feeling good Start: 10-26-2023 End: 10-26-2023 Patient encounter procedure Jen Dale MD Work Phone: OB/Gynecology Comment on above: Encounter for superv ision of high risk in second trimester, antepartum (Primary Dx); 30 weeks gestation of ; Chronic hypertension affecting ; History of intrauterine in previous Start: 10-25-2023 End: 10-25-2023 Office outpatient new 30 minutes Molina Damon MD Work Phone: Neurology Headache [facility] Comment on above: Migraine with aura a nd without status migrainosus, not intractable Start: 10-25-2023 End: 10-25-2023 Patient encounter procedure Delmy Brasher MD Work Phone: OB/Gynecology Comment on above: 30 weeks gestation o f (Primary Dx); Encounter for supervision of high risk in second trimester, antepartum; Chronic hypertension affecting Hypertension affecti ng , third trimester (Primary Dx); Chronic hypertension complicating or reason for care during childbirth; History of intrauterine in previous Start: 10-21-2023 End: 10-21-2023 Patient encounter procedure Maximilian Valdovinos MD Work Phone: OB/Gynecology Comment on above: 29 weeks gestation o f (Primary Dx); Encounter for supervision of high risk in second trimester, antepartum; Chronic hypertension affecting ; History of intrauterine in previous Start: 10-18-2023 End: 10-18-2023 Patient encounter procedure Maximilian Valdovinos MD Work Phone: OB/Gynecology Comment on above: 29 weeks gestation o f (Primary Dx); Encounter for supervision of high risk in second trimester, antepartum; Chronic hypertension affecting ; POTS (postural orthostatic tachycardia syndrome) History of intrauter ine in previous (Primary Dx); Chronic hypertension complicating or reason for care during childbirth; 29 weeks gestation of Start: 10-14-2023 End: 10-14-2023 Patient encounter procedure Jen Dale MD Work Phone: OB/Gynecology Comment on above: History of intrauter ine in previous (Primary Dx); Encounter for supervision of high risk in second trimester, antepartum; Chronic hypertension affecting ; POTS (postural orthostatic tachycardia syndrome) Start: 10-11-2023 End: 10-11-2023 Patient encounter procedure Jen Dale MD Work Phone: OB/Gynecology Comment on above: Chronic hypertension complicating or reason for care during childbirth (Primary Dx); History of intrauterine in previous ; Supervision of high risk in second trimester; Need for vaccination History of intrauter ine in previous (Primary Dx); Encounter for supervision of high risk in second trimester, antepartum; Chronic hypertension affecting ; POTS (postural orthostatic tachycardia syndrome); Tachycardia; 28 weeks gestation of Start: 10-07-2023 Telephone encounter Delmy thomson MD Work Phone: OB/Gynecology Comment on above: Blood Pressure Start: 09-14-2023 End: 09-14-2023 Patient encounter procedure Tabby Krueger MD Work Phone: OB/Gynecology Comment on above: Supervision of high risk in second trimester (Primary Dx); Vaginal discharge; 24 weeks gestation of ; Chronic hypertension affecting Start: 09-14-2023 End: 09-14-2023 ambulatory [facility] Work Phone: Start: 09-14-2023 End: 09-14-2023 Patient encounter procedure [facility] Work Phone: Start: 09-14-2023 Telephone encounter Tabby Krueger MD Work Phone: OB/Gynecology Start: 09-07-2023 End: 09-07-2023 Patient encounter procedure Jen Dale MD Work Phone: OB/Gynecology Comment on above: Encounter for superv ision of high risk in second trimester, antepartum (Primary Dx); Chronic hypertension affecting ; POTS (postural orthostatic tachycardia syndrome); Tachycardia; 23 weeks gestation of Start: 09-07-2023 Telephone encounter Jen Dale MD Work Phone: OB/Gynecology Comment on above: Referral Information Start: 08-26-2023 ambulatory Sneha HARP.CHECK WEIGHER Work Phone: NEUROLOGY Comment on above: Imaging review Start: 08-26-2023 E-mail encounter fro m caregiver Sneha Cardenas APRN.CHECK WEIGHER Work Phone: [facility] Start: 08-18-2023 ambulatory Jen Dale MD Work Phone: OB/Gynecology Comment on above: Schedule Start: 08-16-2023 End: 08-16-2023 Patient encounter procedure Jen Dale MD Work Phone: OB/Gynecology Comment on above: Encounter for superv ision of high risk in second trimester, antepartum (Primary Dx); Chronic hypertension affecting ; History of pre-eclampsia; TIA (transient ischemic attack); History of intrauterine in previous ; 20 weeks gestation of Chronic hypertension affecting (Primary Dx); Encounter for supervision of high risk in second trimester, antepartum; History of intrauterine in previous ; TIA (transient ischemic attack); History of section; POTS (postural orthostatic tachycardia syndrome); History of migraine; 20 weeks gestation of ; Encounter for anatomic survey Start: 08-09-2023 E-mail encounter fro m caregiver Sneha Cardenas APRN.CHECK WEIGHER Work Phone: [facility] Start: 08-09-2023 Follow-up encounter Sneha boswell APRN.CHECK WEIGHER Work Phone: Cerebrovascular Comment on above: Follow-up from last week's visit Start: 08-02-2023 End: 08-02-2023 ambulatory OTTONIEL ENCARNACION Facility:[facility] Start: 08-02-2023 End: 08-02-2023 Patient encounter procedure Sneha Cardenas APRN.CHECK WEIGHER Work Phone: Cerebrovascular Comment on above: Migraine with aura a nd without status migrainosus, not intractable (Primary Dx); Encounter for supervision of high risk in second trimester, antepartum; 13 weeks gestation of ; TIA (transient ischemic attack) Start: 07-29-2023 End: 05-11-2024 Telephone encounter Sneha Cardenas APRN.WILDER Work Phone: [facility] Comment on above: Imaging/Records Start: 07-25-2023 End: 07-25-2023 Patient encounter procedure Geovanna Avilez APRN.CNM Work Phone: OB/Gynecology Comment on above: Encounter for superv ision of high risk in second trimester, antepartum (Primary Dx); Chronic hypertension affecting ; History of intrauterine in previous ; 17 weeks gestation of Start: 07-25-2023 Telephone encounter Ivett jalloh APRN.CNP Work Phone: OB/Gynecology Comment on above: Appointment Start: 07-21-2023 ambulatory Ivett TEIEXIRA RN.CHECK WEIGHER Work Phone: OB/Gynecology Comment on above: Blood pressure Start: 07-13-2023 End: 07-13-2023 Patient encounter procedure Ivett Palomo APRN.WILDER Work Phone: OB/Gynecology Comment on above: Encounter for superv ision of high risk in second trimester, antepartum (Primary Dx); 15 weeks gestation of ; Chronic hypertension affecting Start: 07-01-2023 End: 07-01-2023 Patient encounter procedure Ivett Palomo APRN.CNP Work Phone: OB/Gynecology Comment on above: Encounter for superv ision of high risk in second trimester, antepartum (Primary Dx); 13 weeks gestation of ; Chronic hypertension affecting ; History of intrauterine in previous ; History of migraine; History of section; History of pre-eclampsia; TIA (transient ischemic attack); Vaginal bleeding in , first trimester; Nausea/vomiting in ; POTS (postural orthostatic tachycardia syndrome); Left lower quadrant abdominal pain; with care elsewhere in second trimester Start: 07-01-2023 Telephone encounter Historical [facility] Comment on above: Appointment Start: 06-11-2023 End: 06-11-2023 ambulatory OTTONIEL SHELBY Facility:[facility] Start: 05-23-2023 End: 05-24-2023 ambulatory SHASHANK BALLC~[id number] Facility:[facility] Start: 05-11-2023 End: 05-11-2023 ambulatory NONE NONE Facility:[facility] Start: 05-11-2023 End: 05-11-2023 ambulatory NONE NONE Facility:[facility] Start: 05-06-2023 ambulatory [facility] Facility:[facility] Start: 05-06-2023 End: 05-06-2023 Subsequent hospital visit by physician Jean MATT Work Phone: [facility] [place] Start: 04-23-2023 End: 04-24-2023 ambulatory NEUROLOGY-STROKE ALERT CONSULT Facility:[facility] Start: 04-23-2023 End: 04-24-2023 Emergency department patient visit Julio Bunn MD Work Phone: [facility] Start: 04-23-2023 End: 04-23-2023 ambulatory Clint [phone] Richie [id number] Facility:[facility] Start: 03-17-2023 End: 03-18-2023 ambulatory OTTONIEL SHELBY Facility:[facility] Start: 06-05-2022 End: 06-05-2022 Patient encounter procedure David WHITE Work Phone: [facility] Comment on above: Acute otitis externa of right ear, unspecified type (Primary Dx); Bacterial sinusitis Start: 04-05-2022 End: 04-05-2022 ambulatory [facility] Work Phone: Start: 04-05-2022 End: 04-05-2022 Patient encounter procedure [facility]-Laboratory, Specimen Start: 10-08-2021 Telephone encounter [place] Glen morillo DO Work Phone: Hematology/Oncology Comment on above: Patient Question; Pa tient Update Start: 03-07-2021 End: 03-07-2021 Emergency department patient visit OTTONIEL CORMIER [facility] Procedures Date Procedure Procedure Detail Performing Clinician Start: 01-08-2025 UA DIP,URINE HCG (POC) Geovanna Avilez APRN.CNM Work Phone: Start: 10-26-2024 Us pelvic nonobstetr ic real-time image complete Geovanna Avilez APRN.CNJim Work Phone: Start: 01-02-2024 Urnls dip stick/tabl et rgnt auto w/o microscopy Jen Dale MD Work Phone: Start: 11-28-2023 Urnls dip stick/tabl et rgnt non-auto w/o micrscp Geovanna Avilez APRN.CNJim Work Phone: Start: 11-28-2023 biophysical pr ofile non-stress testing Jen Dale MD Work Phone: Start: 11-21-2023 URINE OB DIP B/O Adriana Brasher MD Work Phone: Start: 11-21-2023 biophysical pr ofile non-stress testing Jen Dale MD Work Phone: Start: 11-15-2023 biophysical pr ofile non-stress testing Jen Dale MD Work Phone: Start: 11-07-2023 biophysical pr ofile non-stress testing Jen Dale MD Work Phone: Start: 11-04-2023 URINE OB DIP B/O Adriana Brasher MD Work Phone: Start: 11-01-2023 biophysical pr ofile non-stress testing Jen Dale MD Work Phone: Start: 10-26-2023 URINE OB DIP B/O Jen Dale MD Work Phone: Start: 10-25-2023 biophysical pr ofile non-stress testing Jen Dale MD Work Phone: Start: 10-21-2023 URINE OB DIP B/O Maximilian Valdovinos MD Work Phone: Start: 10-18-2023 biophysical pr ofile non-stress testing Jen Dale MD Work Phone: Start: 10-11-2023 Us preg uterus after 1st trimest 05/09 gestation Jen Dale MD Work Phone: Start: 09-14-2023 Urnls dip stick/tabl et rgnt auto w/o microscopy Tabby Krueger MD Work Phone: Start: 09-07-2023 URINE OB DIP B/O Jen Dale MD Work Phone: Start: 08-16-2023 URINE OB DIP B/O Jen Dale MD Work Phone: Start: 08-16-2023 Us preg uterus after 1st trimest 05/09 gestation Ivett Palomo APRN.CHECK WEIGHER Work Phone: Start: 07-25-2023 URINE OB DIP B/O Ivett Palomo APRN.CHECK WEIGHER Work Phone: Start: 07-01-2023 URINE OB DIP B/O Ivett Palomo APRN.CHECK WEIGHER Work Phone: Start: 07-01-2023 End: 12-02-2023 H/O: section History of section Ivett Palomo APRN.CHECK WEIGHER Work Phone: Start: 07-01-2023 Adult depression screening assessment Sneha Cardenas ARBORICULTURIST.CHECK WEIGHER Work Phone: Start: 05-06-2023 Echo tthrc r-t 2d w/wom-mode compl spec&colr d Jean Govea ARBORICULTURIST-CHECK WEIGHER Work Phone: Start: 04-24-2023 Creatinine blood Julio Bunn MD Work Phone: Start: 04-24-2023 Mri brain brain stem w/o contrast material Lexie Mendoza MD Work Phone: Start: 04-23-2023 CBC AND ELECTRONIC DIFF Julio Bunn MD Work Phone: Start: 04-23-2023 Complete blood count with white cell differential, automated Julio Bunn MD Work Phone: Start: 04-23-2023 GOLD TOP TUBE Julio severino MD Work Phone: Start: 04-23-2023 Hemoglobin glycosyla solo a1c Danilo Lema Fasoro ARBORICULTURIST-CHECK WEIGHER Work Phone: Start: 04-23-2023 Lipid panel Danilo Lema Fa soro ARBORICULTURIST-CHECK WEIGHER Work Phone: Start: 04-23-2023 LT BLUE TOP TUBE Julio Bunn MD Work Phone: H/O: section History of section Jasmina Collazo MD Work Phone: H/O: section S/P sectio n Geovanna Avilez APRN.CNM Work Phone: H/O: section History of section Geovanna Avilez APRN.CNM Work Phone: Plan of Treatment Date Care Activity Detail Author Start: 10-10-2033 Urine microalbumin profile DTaP,Tdap,Td Vaccine (3 - Td or Tdap) [facility] Start: 12-19-2030 Tetanus vaccination TETANUS [facility] Start: 12-19-2030 Urine microalbumin profile DTaP,Tdap,Td Vaccine (2 - Td or Tdap) [facility] Start: 01-15-2029 Screening for malignant neoplasm of cervix Cervical Cancer Screening [facility] Start: 04-01-2025 End: 04-01-2025 Patient encounter procedure 04/01/2025 2:20 PM EST Office Visit OB/Gynecology [address] [place] [address] Tabby Krueger MD [address] [place] [address] (Fax) Annual / r/s from 11-20 OB/Gynecology Comment on above: Annual / r/s from 11-20 Start: 01-08-2025 End: 01-08-2025 Patient encounter procedure 01/08/2025 1:50 PM EDT Office Visit OB/Gynecology [address] [place] [address] Geovanna Avilez APRN.CNM [address] [place] [address] (Fax) EMB and discuss options - time per [facility] OB/Gynecology Comment on above: EMB and discuss options - time per [facility] Start: 01-07-2025 Influenza vaccination [facility] Start: 11-20-2024 End: 11-20-2024 Patient encounter procedure 11/20/2024 2:20 PM EDT Office Visit OB/Gynecology [address] [place] [address] Tabby Krueger MD [address] [place] [address] (Fax) Annual OB/Gynecology Comment on above: Annual Start: 11-05-2024 End: 11-05-2024 ambulatory 11/05/2024 11:30 AM EDT [facility] OB/Gynecology [address] [place] [address] Geovanna Avilez APRN.CNM [address] [place] [address] (Fax) Discuss U/S results-Ok per [facility] OB/Gynecology Comment on above: Discuss U/S results-Ok per [facility] Start: 10-26-2024 End: 10-26-2024 ambulatory 10/26/2024 11:00 AM EDT Procedure OB/Gynecology [address] [place] [address] 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, 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[employer] [address] [place] [address] Abnormal uterine bleeding (AUB) [N93.9]; Dysmenorrhea [N94.6] OB/Gynecology Comment on above: Abnormal uterine bleeding (AUB) [N93.9]; Dysmenorrhea [N94.6] Start: 10-22-2024 End: 01-21-2025 Thyrotropin [Units/volume] in Serum or Plasma [facility] Comment on above: Expected: 10/22/2024, Expires: Start: 10-22-2024 End: 01-21-2025 Thyroxine (T4) free [Mass/volume] in Serum or Plasma [facility] Comment on above: Expected: 10/22/2024, Expires: 5 Start: 10-22-2024 End: 10-22-2025 US Pelvis PELVIC US [facility] Anc Imaging Routine Abnormal uterine bleeding (AUB) Dysmenorrhea Expected: 10/22/2024, Expires: 10/22/2025 [facility] Work Phone: Comment on above: Expected: 10/22/2024, Expires: 6 Start: 10-03-2024 End: 10-03-2024 Patient encounter procedure 10/03/2024 9:30 AM EDT Office Visit OB/Gynecology [address] [place] [address] Geovanna Avilez APRN.CN [address] [place] [address] irregular bleeding OB/Gynecology Comment on above: irregular bleeding Start: 07-01-2024 Anxiety Screening Anxiety Screening [facility] Start: 07-01-2024 Depression Screening Depression Screening [facility] Start: 02-23-2024 End: 05-24-2024 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 [Identifier] in Blood or Tissue by Molecular genetics method Nominal PROTHROMBIN GENE PCR Lab Routine TIA (transient ischemic attack) Expected: 02/23/2024 (Approximate), Expires: 05/24/2024 [facility] Comment on above: Expected: 02/23/2024 (Approximate), Expi res: 05/24/2024 Start: 02-23-2024 End: 05-24-[address] ANT[address] Lab Routine TIA (transient ischemic attack) Expected: 02/23/2024 (Approximate), Expires: 05/24/2024 [facility] Work Phone: Comment on above: Expected: 02/23/2024 (Approximate), Expi res: 05/24/2024 Start: 01-16-2024 End: 01-16-2024 Patient encounter procedure 01/16/2024 10:40 AM EDT Office Visit OB/Gynecology [address] [place] [address] Tabby Krueger MD [address] [place], [place] [id number] Post OB/Gynecology Comment on above: Post Start: 01-10-2024 End: 01-10-2024 ambulatory 01/10/2024 7:00 AM EDT [facility] Neurology Headache [facility] [address] [place] [address] Silvestre Mina, ARBORICULTURIST.CHECK WEIGHER [address] [place] [address] Neurology Headache [facility] Start: 01-08-2024 Covid-19 Vaccine () Covid-19 Vaccine () [facility] Start: 01-08-2024 Covid-19 Vaccine () Covid-19 Vaccine () [facility] Start: 01-08-2024 Influenza vaccination [facility] Start: 01-02-2024 End: 01-02-2024 Patient encounter procedure 01/02/2024 1:40 PM EDT Office Visit OB/Gynecology [address] [place] [address] Jen Arredondo MD [address] [place] [address] Incision check OB/Gynecology Comment on above: Incision check Start: 12-20-2023 End: 12-20-2023 Patient encounter procedure OB/Gynecology Comment on above: NST NST/OB Start: 12-19-2023 End: 12-19-2023 Patient encounter procedure OB/Gynecology Comment on above: BPP/OB Start: 12-16-2023 End: 12-16-2023 Patient encounter procedure 12/16/2023 3:10 PM EDT Routine Office Visit OB/Gynecology [address] [place] [address] Delmy Brasher MD [address] [place] [address] NST only OB/Gynecology Comment on above: NST only Start: 12-16-2023 End: 12-16-2023 Patient encounter procedure OB/Gynecology Comment on above: NST only Start: 12-13-2023 End: 12-13-2023 Patient encounter procedure OB/Gynecology Comment on above: NST NST/OB Start: 12-12-2023 End: 12-12-2023 Patient encounter procedure OB/Gynecology Comment on above: BPP/OB Start: 12-09-2023 End: 03-09-2024 Bacteria identified in Urine by Culture [facility] Work Phone: Comment on above: Expected: 12/09/2023, Expires: Start: 12-09-2023 End: 03-09-2024 Urinalysis complete panel - Urine [facility] Comment on above: Expected: 12/09/2023, Expires: Start: 12-09-2023 End: 12-09-2023 Patient encounter procedure 12/09/2023 10:50 AM EDT Routine Office Visit OB/Gynecology [address] [place] [address] Jen Arredondo MD [address] [place] [address] OB - Pre Op C/S 12/21 @ [facility] OB/Gynecology Comment on above: OB - Pre Op C/S 12/21 @ [facility] Start: 12-09-2023 End: 12-09-2023 Patient encounter procedure 12/09/2023 9:30 AM EDT Routine Office Visit OB/Gynecology [address] [place] [address] NST only OB/Gynecology Comment on above: NST only Start: 12-08-2023 End: 12-08-2023 Patient encounter procedure 12/08/2023 1:40 PM EDT Routine Office Visit OB/Gynecology [address] [place] [address] Jen Arredondo MD [address] [place] [address] OB - Pre Op C/S 12/21 @ [facility] OB/Gynecology Comment on above: OB - Pre Op C/S 12/21 @ [facility] Start: 12-06-2023 End: 12-06-2023 Patient encounter procedure OB/Gynecology Comment on above: NST NST/OB Start: 12-05-2023 End: 12-05-2023 Patient encounter procedure 12/05/2023 11:40 AM EDT Routine Office Visit OB/Gynecology [address] [place] [address] Norris Song MD [address] [place] [address] BPP/OB OB/Gynecology Comment on above: BPP/OB Start: 12-05-2023 End: 12-05-2023 Patient encounter procedure OB/Gynecology Comment on above: BPP/OB PP BP check per RR Start: 12-02-2023 End: 12-02-2023 Patient encounter procedure OB/Gynecology Comment on above: NST only Start: 11-29-2023 End: 11-29-2023 Patient encounter procedure OB/Gynecology Comment on above: NST NST/OB Start: 11-28-2023 End: 11-28-2023 Patient encounter procedure OB/Gynecology Comment on above: BPP/OB Start: 11-25-2023 End: 11-25-2023 Patient encounter procedure OB/Gynecology Comment on above: NST only Start: 11-22-2023 End: 11-22-2023 Patient encounter procedure OB/Gynecology Comment on above: NST NST/OB Start: 11-21-2023 End: 11-21-2023 Patient encounter procedure OB/Gynecology Comment on above: BPP BPP/OB Start: 11-18-2023 End: 11-18-2023 Patient encounter procedure OB/Gynecology Comment on above: NST only Start: 11-15-2023 End: 11-15-2023 Patient encounter procedure OB/Gynecology Comment on above: OB BPP Start: 11-15-2023 End: 11-15-2023 Patient encounter procedure OB/Gynecology Comment on above: NST OB Start: 11-11-2023 End: 11-11-2023 Patient encounter procedure OB/Gynecology Comment on above: NST / OB OB Start: 11-07-2023 End: 11-07-2023 Patient encounter procedure OB/Gynecology Comment on above: BPP / OB OB Start: 11-04-2023 End: 11-04-2023 Patient encounter procedure OB/Gynecology Comment on above: NST / OB OB Start: 11-01-2023 End: 11-01-2023 Patient encounter procedure OB/Gynecology Comment on above: BPP / OB OB Start: 10-28-2023 End: 10-28-2023 Patient encounter procedure OB/Gynecology Comment on above: OB NST / OB Start: 10-26-2023 End: 10-26-2023 Patient encounter procedure OB/Gynecology Comment on above: NST only NST Start: 10-25-2023 End: 10-25-2023 ambulatory 10/25/2023 7:00 PM EDT [facility] Neurology Headache [facility] [address] [place] [address] [place] [address] [place] [address] The migraines I am having. Neurology Headache [facility] Comment on above: The migraines I am having. Start: 10-25-2023 End: 10-25-2023 Patient encounter procedure OB/Gynecology Comment on above: BPP / OB OB Start: 10-21-2023 End: 10-21-2023 Patient encounter procedure OB/Gynecology Comment on above: NST/ OB OB Start: 10-18-2023 End: 10-18-2023 Patient encounter procedure OB/Gynecology Comment on above: BPP / OB OB Start: 10-14-2023 End: 10-14-2023 Patient encounter procedure OB/Gynecology Comment on above: OB nst Start: 10-11-2023 End: 10-11-2023 Patient encounter procedure OB/Gynecology Comment on above: Growth OB Start: 10-11-2023 End: 10-11-2023 ambulatory 10/11/2023 10:45 AM EDT Results Only [facility] [address] [place] [address] Lab [facility] Comment on above: Lab Start: 09-14-2023 Nonstress test [facility] Start: 09-14-2023 Obstetric monitoring [facility] Start: 09-14-2023 Vital signs measurements [facility] Start: 09-14-2023 [facility] Start: 09-14-2023 Patient discharge [facility] Start: 09-07-2023 End: 12-07-2023 CBC panel - Blood by Automated count COMPLETE BLOOD COUNT Lab Routine 23 weeks gestation of Encounter for supervision of high risk in second trimester, antepartum Chronic hypertension affecting POTS (postural orthostatic tachycardia syndrome) Expected: 09/07/2023, Expires: 12/07/2023 [facility] Work Phone: Comment on above: Expected: 09/07/2023, Expires: Start: 09-07-2023 End: 12-07-2023 GESTATIONAL GLUCOSE SCREEN, 1-HOUR, 50 GRAM, NON-FASTING GESTATIONAL GLUCOSE SCREEN, 1-HOUR, 50 GRAM, NON-FASTING Lab Routine 23 weeks gestation of Encounter for supervision of high risk in second trimester, antepartum Chronic hypertension affecting POTS (postural orthostatic tachycardia syndrome) Expected: 09/07/2023, Expires: 12/07/2023 [facility] Comment on above: Expected: 09/07/2023, Expires: Start: 09-07-2023 End: 12-07-2023 SYPHILIS TOTAL W/REFLEX SYPHILIS TOTAL W/REFLEX Lab Routine 23 weeks gestation of Encounter for supervision of high risk in second trimester, antepartum Chronic hypertension affecting POTS (postural orthostatic tachycardia syndrome) Expected: 09/07/2023, Expires: 12/07/2023 [facility] Comment on above: Expected: 09/07/2023, Expires: Start: 08-09-2023 End: 11-08-2023 B 2 GPI IGG & IGM B 2 GPI IGG & IGM Lab Routine TIA (transient ischemic attack) Expected: 08/09/2023, Expires: 11/08/2023 [facility] Work Phone: Comment on above: Expected: 08/09/2023, Expires: Start: 08-09-2023 End: 11-08-2023 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 [Identifier] in Blood or Tissue by Molecular genetics method Nominal PROTHROMBIN GENE PCR Lab Routine TIA (transient ischemic attack) Expected: 08/09/2023, Expires: 11/08/2023 [facility] Work Phone: Comment on above: Expected: 08/09/2023, Expires: Start: 08-09-2023 End: 11-08-[address] Lab Routine TIA (transient ischemic attack) Expected: 08/09/2023, Expires: 11/08/2023 [facility] Work Phone: Comment on above: Expected: 08/09/2023, Expires: 4 Start: 08-09-2023 End: 11-08-2023 YOLANDA-1 GENOTYPE 5G/4G YOLANDA-1 GENOTYPE 5G/4G Lab Routine TIA (transient ischemic attack) Expected: 08/09/2023, Expires: 11/08/2023 [facility] Work Phone: Comment on above: Expected: 08/09/2023, Expires: 4 Start: 07-01-2023 End: 07-01-2024 NUCHAL TRANSLUCENCY WHI NUCHAL TRANSLUCENCY [facility] Anc Imaging Routine Encounter for supervision of high risk in second trimester, antepartum Expected: 07/01/2023, Expires: 07/01/2024 [facility] Work Phone: Comment on above: Expected: 07/01/2023, Expires: 5 Start: 07-01-2023 End: 07-01-2024 OBSTETRIC ULTRASOUND WHI OBSTETRIC ULTRASOUND [facility] Anc Imaging Routine Encounter for supervision of high risk in second trimester, antepartum 13 weeks gestation of Expected: 07/01/2023, Expires: 07/01/2024 [facility] Work Phone: Comment on above: Expected: 07/01/2023, Expires: 5 Start: 06-06-2023 End: 06-06-2023 Patient encounter procedure 06/06/2023 9:00 AM EST Office Visit [facility] [address] [place] [address] [address] [place] [address] Allen Marin Jr., MD [address] [place] [id number] [facility] Start: 05-25-2023 Hepatitis B vaccination HEP B VACCINE (3 of 3 - 19+ 3-dose series) [facility] Start: 05-25-2023 Hepatitis B Vaccine (3 of 3 - 19+ 3-dose series) Hepatitis B Vaccine (3 of 3 - 19+ 3-dose series) [facility] Start: 05-09-2023 Behavioral Health Screening Behavioral Health Screening [facility] Start: 05-09-2023 Depression Assessment Depression Assessment [facility] Start: 04-25-2023 End: 06-25-2023 Echocardiography ECHOCARDIOGRAM Echocardiography Routine TIA (transient ischemic attack) Expected: 04/25/2023, Expires: 06/25/2023 [facility] Comment on above: Expected: 04/25/2023, Expires: Start: 01-07-2023 COVID-19 VACCINE () COVID-19 VACCINE () [facility] Start: 01-07-2023 Covid-19 Vaccine () Covid-19 Vaccine () [facility] Start: 01-07-2023 Influenza vaccination INFLUENZA VACCINE (#1) [facility] Start: 05-09-2022 DEPRESSION ASSESSMENT DEPRESSION ASSESSMENT [facility] Start: 01-07-2022 Influenza vaccination [facility] Start: 06-23-2021 COVID-19 VACCINE (4 - Booster) COVID-19 VACCINE (4 - Booster) [facility] Start: 2021 HPV TESTING HPV TESTING [facility] Start: 2021 Screening for malignant neoplasm of cervix HPV Testing [facility] Start: 2018 HPV Vaccine (1 - 3-dose SCDM series) HPV Vaccine (1 - 3-dose SCDM series) [facility] Start: 02-12-2012 PAP TESTING PAP TESTING [facility] Start: 02-12-2012 Screening for malignant neoplasm of cervix [facility] Start: 2010 Urine microalbumin profile DTAP,TDAP,TD (1 - Tdap) [facility] Start: 2009 Annual PCP Team Chronic Disease Visit Annual PCP Team Chronic Disease Visit [facility] Start: 2009 Anxiety Screening Anxiety Screening [facility] Start: 2009 Depression Screening Depression Screening [facility] Start: 2009 HEPATITIS C SCREENING HEPATITIS C SCREENING [facility] Start: 2009 Hepatitis C screening Hepatitis C Screening [facility] Start: 2009 HIV SCREENING HIV SCREENING [facility] Start: 2009 HIV screening HIV Screening [facility] Start: 2006 HIV screening HIV SCREENING DISCUSSION [facility] Start: 2003 Adult depression screening assessment DEPRESSION SCREENING [facility] Start: 1991 HEPATITIS B (1 of 3 - 3-dose series) HEPATITIS B (1 of 3 - 3-dose series) [facility] Start: 1991 Hepatitis C screening HEPATITIS C VIRUS SCREENING [facility] Bacteria identified in Urine by Culture URINE CULTURE Microbiology Routine Dysuria 01/02/2024 2:11 PM EDT [facility] Work Phone: End: 04-08-2024 BIOPHYSICAL PROFILE US [facility] BIOPHYSICAL PROFILE [facility] Anc Imaging Routine Chronic hypertension complicating or reason for care during childbirth History of intrauterine in previous Supervision of high risk in second trimester Once per week for 15 Occurrences starting 10/11/2023 until 04/08/2024 [facility] Comment on above: Once per week for 15 Occurrences startin g 10/11/2023 until 04/08/2024 Endometrial bx w/wo endocervix bx w/o dilat spx ENDOMETRIAL BIOPSY Procedures Routine Abnormal uterine bleeding (AUB) Ordered: 12/25/2024 [facility] Work Phone: Comment on above: Ordered: 12/25/2024 End: 04-24-2023 EXTRA LAVENDER TOP EXTRA LAVENDER TOP Lab Routine Once for 1 Occurrences starting 04/24/2023 until 04/24/2023 [facility] Comment on above: Once for 1 Occurrences starting 04/24/20 until 04/24/2023 EXTRA LAVENDER TOP EXTRA LAVENDE R TOP Lab Routine 04/24/2023 1:13 AM EST [facility] End: 04-24-2023 EXTRA TUBES EXTRA TUBES Lab Routine One Time for 1 Occurrences starting 04/24/2023 until 04/24/2023 [facility] Work Phone: Comment on above: One Time for 1 Occurrences starting 04/08 until 04/24/2023 EXTRA TUBES EXTRA TUBES Lab Routine 04/24/2023 1:13 AM EST [facility] End: 12-22-2023 nonstress test NON-STRESS TEST Procedures Routine Chronic hypertension complicating or reason for care during childbirth History of intrauterine in previous Supervision of high risk in second trimester Once per week for 15 Occurrences starting 10/11/2023 until 12/22/2023 [facility] Work Phone: Comment on above: Once per week for 15 Occurrences startin g 10/11/2023 until 12/22/2023 End: 04-23-2023 LAVENDER TOP TUBE [facility] Comment on above: Once for 1 Occurrences starting 04/23/20 until 04/23/2023 End: 04-23-2023 MINT GREEN TOP TUBE [facility] Comment on above: Once for 1 Occurrences starting 04/23/20 until 04/23/2023 End: 12-22-2023 OBSTETRIC ULTRASOUND WHI OBSTETRIC ULTRASOUND [facility] Anc Imaging Routine 23 weeks gestation of Encounter for supervision of high risk in second trimester, antepartum Chronic hypertension affecting POTS (postural orthostatic tachycardia syndrome) Tachycardia Once per month for 8 Occurrences starting 09/07/2023 until 12/22/2023 [facility] Comment on above: Once per month for 8 Occurrences startin g 09/07/2023 until 12/22/2023 PAP TEST PAP TEST Lab Shanae leonardo care and examination Encounter for screening for malignant neoplasm of cervix 01/16/2024 11:23 AM EDT [facility] Work Phone: Patient Education Kick Counts ED False Labor OB Triage: Return to Hospital or Notify Physician if you Experience: [facility] Work Phone: Patient referral [facility] Work Phone: End: 04-23-2023 RAINBOW DRAW [facility] Comment on above: One Time for 1 Occurrences starting 04/08 until 04/23/2023 End: 04-23-2023 Standard ECG [facility] Comment on above: One Time for 1 Occurrences starting 04/08 until 04/23/2023 Tissue Pathology bio psy report SURGICAL PATHOLOGY Lab Routine Abnormal uterine bleeding (AUB) Adenomyosis of uterus Irregular menstruation 01/08/2025 2:17 PM EDT [facility] Work Phone: URINE OB DIP B/O URINE OB DIP B/ O Lab Routine 15 weeks gestation of Encounter for supervision of high risk in second trimester, antepartum Ordered: 07/13/2023 [facility] Work Phone: Comment on above: Ordered: 07/13/2023 URINE OB DIP B/O URINE OB DIP B/ O Lab Routine 34 weeks gestation of High-risk in third trimester Chronic hypertension complicating or reason for care during childbirth History of intrauterine in previous Ordered: 11/25/2023 [facility] Work Phone: Comment on above: Ordered: 11/25/2023 [facility] Immunizations Immunization Date Immunization Notes Care Provider Carola [facility] 10-11-2023 tetanus toxoid, redu javan diphtheria toxoid, and acellular pertussis vaccine, adsorbed Jen Raegan Dale MD Work Phone: [facility] 01-20-2023 hepatitis B vaccine, adult dosage Tabby Krueger MD Work Phone: [facility] 11-22-2022 hepatitis B vaccine, adult dosage Tabby Krueger MD Work Phone: [facility] 04-28-2021 COVID-19 original vaccine, full dose, monovalent (MODERNA) Tabby Krueger MD Work Phone: [facility] 12-19-2020 tetanus toxoid, redu javan diphtheria toxoid, and acellular pertussis vaccine, adsorbed [facility] 06-13-2020 COVID-19 original vaccine, full dose, monovalent (MODERNA) Tabby Krueger MD Work Phone: [facility] 06-09-2020 Covid (Pfizer) [facility] Payers Date Payer Category Payer Self-pay [id number] 2023 Unknown [id number] 2016 Unknown [id number] 2012 Private Health Insurance [facility] [employer] [id number] 2012-Present [phone] [address] [address] [place] [address] O [id number] 2012 Private Health Insurance [id number] 1991 Unknown [id number] 902 1990 Unknown [id number]. 419 1990 Unknown [id number] 2.16.840.1.067305.3.579.2. 419 1991 Unknown [id number] 2.16.840.1.163224.3.579.2. 419 1991 Unknown [id number] 2.16.840.1.354829.3.579.2. 419 1991 Unknown [id number] 2.16.840.1.045337.3.579.2. 419 1991 Unknown [id number] 2.16.840.1.799101.3.579.2. 419 1991 Unknown [id number] 2.16.840.1.884046.3.579.2. 419 1991 Unknown [id number] 2.16.840.1.358340.3.579.2. 419 1991 Unknown [id number] 2.16.840.1.679514.3.579.2. 419 1991 Unknown [id number] 2.16.840.1.183643.3.579.2. 594 1991 Unknown [id number] 2.16.840.1.408795.3.579.2. 594 1991 Unknown [id number] 2.16.840.1.986765.3.579.2. 651 1959 Unknown [id number] Unknown [id number] Unknown [facility] [id number] [address] [place] [address] [id number] Unknown [id number] [id number]. 462 Unknown [id number]. 462 Social History Date Type Detail Facility Start: 02-20-2019 End: 07-01-2023 Tobacco smoking status KYIS Never smoked tobacco [facility] Start: 02-20-2019 End: 07-01-2023 Tobacco use and exposure Smokeless tobacco non-user [facility] Start: 07-01-2021 End: 01-08-2025 Alcohol intake Lifetime non-drinker (finding) [facility] Start: 06-04-2021 History SDOH Alcohol Frequency 1 [facility] Start: 1990 Sex Assigned At Female C [facility] Start: 2021 End: 07-15-2022 Tobacco smoking status KYIS Unknown if ever smoked [facility] Start: 10-30-2018 None [facility] Start: 10-30-2018 Spouse/ Signif icant Other [facility] Start: 04-26-2019 Non-smoker [facility] Start: 02-23-2019 Alcohol intake Current non-dr marketing writer of alcohol (finding) [facility] Start: 03-01-2020 End: 10-22-2024 History of Social function [facility] Start: 03-01-2020 End: 10-22-2024 Tobacco use panel [facility] Start: 1990 Sex Assigned At Not on file [facility] Start: 06-12-2021 Gender identity Identifies as female gender (finding) [facility] Start: 09-23-2015 National Score (1-100), lower number is lower risk 76 [facility] Start: 07-01-2023 Education 17 [facility] Start: 04-10-2023 [facility] Start: 06-12-2021 Sexual orientation Heterosexual (verona thomas) [facility] NEGATED: Highlighted rowStart: NINF History of tobacco use Passive smoker [facility] Clinical Notes 01-28-2021 to 02-07-2025 Patient InstructionsGeovanna Avilez APRN.CNM - 01/08/2025 1:43 PM EDTTelephone Encounter - Batool Rogel RN - 12/25/2024 4:43 PM EDTPatient InstructionsPatient InstructionsPatient Instructions Note Date & Type Note Facility 02-07-2025 Note HNO ID: [id number] Author: TABBY KRUEGER MD Service: ? Author Type: Physician Type: Progress Notes Filed: 02/07/2025 13:05 Note Text: Obstetrics and Gynecology [place] SAND CASTER APPRENTICE Visit Subjective Recording using Gu[employer] software for draft documentation of the visit was discussed with the patient/authorized floor representative; all questions welcomed and answered. Patient/authorized floor representative agreed to proceed CHIEF COMPLAINT: The patient is a 34-year-old female with POTS and history of TIAs, presenting for management of menorrhagia and surgical planning for hysterectomy. HPI: The patient is a 34-year-old female with a history of heavy menstrual bleeding, POTS, and TIAs presenting for evaluation of persistent menorrhagia and dysmenorrhea. Menstrual History - Reports menorrhagia and dysmenorrhea since resuming menstruation post-. - Describes menstrual flow as so, so heavy and super painful, with bleeding lasting almost the entire month and only 2-3 days of respite. - On the heaviest days, requires changing protection every hour to hour and a half. - Notes that periods have been absolutely crazy since the of her last child. - No history of hemorrhaging or blood transfusions [id number]; was anemic after the first and received iron infusions. -H/o POTS and says mense have always been bad but this is worse Contraception History - Currently not planning to have more children. - Previously used norethindrone (progesterone-only control) without improvement in menstrual symptoms. - Recently switched to norethindrone Aygestin at the beginning of the month to control bleeding, but reports worsening symptoms, including gushing blood and large clots, necessitating protection changes every hour to hour and a half. - Discontinued Aygestin one week ago, resulting in increased bleeding. - Previously used estrogen-containing control pills before the loss of her first , which provided better control of menstrual bleeding. - Did not use contraception between pregnancies. notes + history TIA< no h/o VTE Obstetric History - Reports a uterine septum noted on US and during - Denies any history of hemorrhaging or blood transfusions [id number]; was anemic after the first and received iron infusions. Past Diagnostic Results - Pelvic ultrasound (October): Revealed a uterine septum; adenomyosis and ovaries appeared normal. - Endometrial biopsy: Normal. - Pap smears: Normal, with the most recent one performed last year. Current Medications and Supplements - Iron supplements. - vitamins. HISTORY: OB History Gravida4 Para3 Term1 Preterm2 AB0 Living2 SAB0 IAB0 Ectopic0 Multiple0 Live Births2 Spindle Plumber History LMP: 12/10/2024 (Exact Date), Having periods Age at Menarche: Age at First : Age at Menopause: Spindle Plumber History Comments: Sexual Activity: Yes; Male Contraception: No contraception data on record PAST MEDICAL HISTORY Diagnosis Date Anemia 07/2018 Arachnoid cyst History of intrauterine in previous 07/01/2023 Hx of preeclampsia, prior , currently ([facility]) 01/2021 Around 32weeks Left lower quadrant abdominal pain 07/01/2023 Reports random sharp pain to left side. Likely round ligament pain. To notify if persistent or worsening. Lyme disease Mesenteric lymphadenitis POTS (postural orthostatic tachycardia syndrome) TIA (transient ischemic attack) 04/2023 Vaginal bleeding in , first trimester ([facility]) 07/01/2023 Per OB records, humza gestational hemorrhage: 2.4 cm on dating ultrasound. Reviewed likely the cause of her bleeding and that it likely resolved. Plans for NT scan and will confirm. No further bleeding. PAST SURGICAL HISTORY Procedure Laterality Date DELIVERY ONLY 2021 DELIVERY ONLY 11/30/2023 LTCS D AND C 07/17/2018 FOr retained POC EXCIS UTERINE FIBROID,VAG APPRCH 07/2018 PORT Insertion AND removal x 2 FAMILY HISTORY Problem Relation Age of Onset No Known Problems Mother Hypertension Father other (Sloping Brain Syndrome) Father Hypertension Sister No Known Problems Sister Heart Attack Maternal Grandmother Stroke Maternal Grandmother 63 No Known Problems Maternal Grandfather SOCIAL HISTORY[1] Current Outpatient Medications Medication Sig labetalol (TRANDATE) 100 mg tablet Take 1 tablet by mouth two times a day. PNV no.95/ferrous fum/folic ac ( ORAL) Take by mouth. loratadine (CLARITIN) 10 mg tablet Take 1 tablet by mouth once daily as needed (for allergy symptoms.). norethindrone (AYGESTIN) 5 mg tablet 1 tab 3x/day until bleeding stops. 1 tab 2x/day x 2 days. 1 tab daily x 5 days No current facility-administered medications for this visit. ALLERGIES Allergen Reactions Adhesive Tape-Silic* Rash Tegaderm dressing Latex, Natural Rubb* Hives, Rash (more content not included)... [facility] 01-08-2025 Instructions Saadia Calix MA - 01/08/2025 1:44 PM EDT Images from the original note were not included. Post-Procedure Instructions Endometrial Biopsy Instructions: You may experience irregular bleeding / spotting for up to a week after this procedure. Use a panty liner or pad instead of tampons for about one week. Avoid vaginal intercourse or putting anything in your vagina for about one week. Pain Control / Medications: Take 600 mg of ibuprofen (Advil, Motrin, etc.) or 1000 mg of acetaminophen (Tylenol) every 6 hours as needed for pain Do not take more than 2400 mg of ibuprofen or 4000 mg of acetaminophen in any 24 hour period You can also put a heating pad on your abdomen to help with pain. Call your provider's office if you: Have a fever greater than 100.4 F (38.0 C) Have very heavy bleeding (soaking 1 large pad an hour for 2 hours in a row) Prolonged vaginal bleeding for > 7 days following your procedure Have severe cramps that do not go away after you take ibuprofen or acetaminophen Have foul smelling vaginal discharge Follow-Up: Your specific follow up plan will depend on the results of the biopsy. Most biopsy results are available in 3 to 5 business days via [employer], unless a different method of communication was discussed today with your provider. documented in this encounter [facility] 01-08-2025 Note HNO ID: [id number] Author: GEOVANNA AVILEZ APRN.MITZI Service: ? Author Type: Weed Sprayer Type: Progress Notes Filed: 01/08/2025 15:57 Note Text: Side Door Worker offered: Patient declines. Clarisa is a 34 year old Female who presents today for an endometrial biopsy for abnormal uterine bleeding, irregular menses, adenomyosis of uterus. test: negative UNIVERSAL PROTOCOL / SAFETY CHECKLIST Procedure to be Performed: Endometrial Biopsy Sign In: A Moment of CARE was completed. Appropriate PPE (Personal Protective Equipment) worn by all providers involved with the procedure. Special equipment not required. Patient/Surrogate Stated/Verified: Patient name, Date of , Relevant allergies, and The intended procedure Time Out: Relevant labs, photos, and/or imaging studies have been reviewed. Intended patient and procedure match the source document(s) (e.g. consent, HANDP, associated studies [imaging, pathology]) match the intended patient and procedure. Consent obtained and matches the intended procedure. Yes. Correct side/site is not applicable. Medications required for this procedure are verified. Fire risk assessed and is not applicable. Implants: are not applicable. Sign Out: Specimens are all correctly labeled and sent. All instruments, equipment, possible retained foreign bodies are accounted for. Yes. The post-procedure plan of care has been communicated to the patient or surrogate. PROCEDURE: EXTERNAL GENITALIA: Normal in appearance without lesions VAGINA: Normal in appearance without lesions BIOPSY: Speculum placed into the vagina with excellent visualization of the cervix. Cervix cleaned with betadine. Anterior lip of cervix grasped with single toothed tenaculum. Uterus sounded to 8 cm. Pipelle inserted into the uterus without difficulty and endometrial biopsy obtained. Specimen labeled and sent to pathology. Hemostasis achieved. Procedure Summary: Patient tolerated procedure well. ASSESSMENT: abnormal uterine bleeding PLAN: Specimens labeled and sent to Pathology. Will notify patient of results in 1-2 weeks. Follow up in 2 weeks to discuss results. Discussed option for aygestin taper vs continuing micronor. Also reviewed IUD and declines at this time. Will await results and then discuss further. Geovanna Avilez APRN.CNM [facility] 01-08-2025 History of Presen t illness Narrative Side Door Worker offered: Patient declines. Clarisa is a 34 year old Female who presents today for an endometrial biopsy for abnormal uterine bleeding, irregular menses, adenomyosis of uterus. test: negative UNIVERSAL PROTOCOL / SAFETY CHECKLIST Procedure to be Performed: Endometrial Biopsy Sign In: A Moment of CARE was completed. Appropriate PPE (Personal Protective Equipment) worn by all providers involved with the procedure. Special equipment not required. Patient/Surrogate Stated/Verified: Patient name, Date of , Relevant allergies, and The intended procedure Time Out: Relevant labs, photos, and/or imaging studies have been reviewed. Intended patient and procedure match the source document(s) (e.g. consent, H&P, associated studies [imaging, pathology]) match the intended patient and procedure. Consent obtained and matches the intended procedure. Yes. Correct side/site is not applicable. Medications required for this procedure are verified. Fire risk assessed and is not applicable. Implants: are not applicable. Sign Out: Specimens are all correctly labeled and sent. All instruments, equipment, possible retained foreign bodies are accounted for. Yes. The post-procedure plan of care has been communicated to the patient or surrogate. PROCEDURE: EXTERNAL GENITALIA: Normal in appearance without lesions VAGINA: Normal in appearance without lesions BIOPSY: Speculum placed into the vagina with excellent visualization of the cervix. Cervix cleaned with betadine. Anterior lip of cervix grasped with single toothed tenaculum. Uterus sounded to 8 cm. Pipelle inserted into the uterus without difficulty and endometrial biopsy obtained. Specimen labeled and sent to pathology. Hemostasis achieved. Procedure Summary: Patient tolerated procedure well. ASSESSMENT: abnormal uterine bleeding PLAN: Specimens labeled and sent to Pathology. Will notify patient of results in 1-2 weeks. Follow up in 2 weeks to discuss results. Discussed option for aygestin taper vs continuing micronor. Also reviewed IUD and declines at this time. Will await results and then discuss further. Geovanna Avilez APRN.CNM documented in this encounter [facility] 12-25-2024 Telephone encounter Note Patient notified and scheduled for 01/08 with KIERSTEN. Batool Rogel RN [facility] 12-25-2024 Miscellaneous Notes Patient notified and scheduled for 01/08 with JC. Batool Rogel RN 01/08 at 1:50? Can add it or just put it in a spot Geovanna Avilez APRN.CNM How soon should she get EMB? You have no available improvement coordinator slots until 01/15 for 15 min slot only. Batool Rogel RN Can she schedule for an endometrial biopsy and can discuss further. Thank you, Geovanna Avilez APRN.CNM Patient calling in c/o prolonged heavy bleeding still. Has been taking norethindrone daily at the same time each day for almost two months and she is still bleeding more days of the month than not. States when bleeding stops it only does for a day or two. Bleeding is heavy with clots, going through tampon onto pad and needing to change about every 1-2 hours. No chest pain, shortness of breath, dizziness at this time. Is feeling fatigued. Please advise. Batool Rogel RN documented in this encounter [facility] 12-25-2024 Telephone encounter Note 01/08 at 1:50? Can add it or just put it in a spot Geovanna Avilez APRN.CNM [facility] 12-25-2024 Telephone encounter Note How soon should she get EMB? You have no available improvement coordinator slots until 01/15 for 15 min slot only. Batool Rogel RN [facility] 12-25-2024 Telephone encounter Note Can she schedule for an endometrial biopsy and can discuss further. Thank you, Geovanna Avilez APRN.CNM [facility] 12-25-2024 Telephone encounter Note Patient calling in c/o prolonged heavy bleeding still. Has been taking norethindrone daily at the same time each day for almost two months and she is still bleeding more days of the month than not. States when bleeding stops it only does for a day or two. Bleeding is heavy with clots, going through tampon onto pad and needing to change about every 1-2 hours. No chest pain, shortness of breath, dizziness at this time. Is feeling fatigued. Please advise. Batool Rogel RN [facility] 11-05-2024 Instructions Geovanna Avilez APRN.CNM - 11/05/2024 11:17 AM EDT What is uterine adenomyosis? This is a condition that causes heavy, painful periods. In people who have uterine ?my??is, the uterus gets larger than normal. This happens because the kind of cells that normally line the inside of the uterus start to grow in the [place] of the uterus. Uterine ?m???i? will be called just ?m??sis here. ?my??is often happens along with other conditions that affect the uterus, especially ?metri?si?. ?metri?si? is a condition in which the kind of cells normally found only in the uterus starts to grow outside of the uterus. ?my?si? can also happen in people with fibroids, which are abnormal growths that form in the muscle of the uterus. What are the symptoms of adenomyosis? The symptoms can include: ?Heavy periods ?Painful periods ?Pain in the lower belly Should I see a doctor or nurse? Yes. If you have very heavy or painful periods, see your doctor or nurse. Often, there are treatments that can help. Will I need tests? Maybe. There is no test that can show for sure whether you have ?m?osi?. But there are some tests that can help your doctor or nurse figure out what might be causing your symptoms. For example, your doctor or nurse might send you for an ultrasound. Some people might also get an MRI, but this is less common. Both of these tests create pictures of the inside of your body. They can show if your uterus is enlarged or has other signs of ?m??si?. How is adenomyosis treated? There are several treatments that might reduce the heavy bleeding and pain caused by ?my??is. They include: ?Pain medicines - Ibuprofen (sample brand names: Advil, Motrin) can help with pain and reduce menstrual bleeding. ?Intrauterine device (IUD) - An IUD is a small device that fits inside the uterus and is normally used to prevent . One type of IUD, which releases the hormone progestin, might help with the symptoms of ?m?osis. (IUDs must be placed in the uterus by a doctor or nurse.) ? control pills ?Other medicines - These includes medicines that are commonly used for treating ?m?triosis or fibroids. ?Uterine artery embolization - This procedure decreases the blood supply to the uterus. It is usually not done in people who might want to get . ?Surgery - Surgery to remove the uterus, called hysterectomy, will permanently remove ?m?osi?. But other treatments are usually tried first. After a hysterectomy, it is not possible to get . If you might want to get , other types of surgery might be an option. These include removing or burning the extra tissue that grows in ?m?osi?. Your doctor can talk to you about your options and help you choose the treatment that is best for you. Oral Contraceptives: The Pill Beginning the Pill Pills come in either a 21 day pack or a 28 day pack. With the 21 day pack you will take one pill for 21 days then no pill for 7 days, during which time you will have what is known as withdrawal bleeding. The 28 day pack allows you to take a pill every day of the cycle with no interruptions. The first 21 pills are the pills with the active ingredients and the last 7 are the nonmedical pills (placebo) or they may contain iron. There will be bleeding during the week you are taking the nonmedical pills. The advantage to the 28 day pack is that you don t have to keep track of when you stopped the pill. Unless otherwise instructed, you should start your pills the Tuesday following your first day of bleeding with your next period (if your period starts on a Tuesday, you should start pills the same day) Read your information packet that comes with the pills. Pill Benefits The pill is the most popular method of reversible control being used today. Millions of women rely on oral contraceptives as their control method. It is important to have an examination by your physician to determine if the pill is safe for you. There are several advantages associated with the pill: it is 97-98% effective; may improve acne; periods are more regular and less painful; there is less iron deficiency anemia in pill users. nursing home use is associated with a decreased incidence of ovarian and uterine cancer. There is also no evidence that the pill increases the incidence of any cancer. How Oral Contraceptives Work Oral contraceptives come in two varieties. One is the combination pill which contains both estrogen and progesterone. Combination pills are considered 98-99% effective in preventing . This pill comes in either monophasic, which delivers the same amount of estrogen and progesterone throughout the cycle; and triphasic, which try tries to mimic the normal hormone cycle by changing the levels of the hormones in the pills during the month. There is no real advantage to taking the one over the other. The other type of pill only contains progesterone. It is best used for women who can t take estrogen. This type of pill is slightly less effective than the combination pill in preventing . Oral contraceptives prevent ovulation (release of an egg from the ovary) by suppressing the pituitary gland s action. The pill does NOT prevent sexually transmitted disease. Obtaining a Prescription It is important to see your doctor before starting oral contraceptives so that you can have a full medical history taken and a physical examination given. Certain medical conditions may make the pill inappropriate for you, therefore it is very important to be honest and as complete as possible with the information you share with your doctor. The types of predisposing factors which would make the pill a poor choice of control would include: History of blood clots Stroke Serious liver disease or impaired liver function Unexplained vaginal bleeding or Cancer of the reproductive system Active gall bladder disease Hypertension Possible Side Effects It can take up to three months for your body to become adjusted to the pill. The more common side effects experienced at this time are: breakthrough spotting or bleeding, which is bleeding at any other time other than when you should be having a period; nausea or vomiting; breast tenderness; and mild fluid retention. There is no skilled nursing weight gain with the use of the pill. Breakthrough bleeding is the most common complaint of new pill users. There is no way to predict who will have it and there is no way of preventing it. Breakthrough bleeding usually subsides on its own with no further treatment after the first three months of taking the pill. If these symptoms continue to occur after the first three months you should check with your physician to see if there is any physical cause and possibly change to another control pill. Problems: Missed 1 pill: Take 2 pills the next day. Missed 2 pills: Take 2 pills the next day and 2 pills the following day. Also use another form of control (condoms) along with the pill for the rest of the month. Missed 3 or more pills: You have two choices. You can take two pills each day until you are on schedule, plus use an additional form of control along with the pill for the rest of the month. Or you can stop the pill and start a completely new pack of pills the next Tuesday. You must use another form of control with the pill for at least the first two weeks of the new pack. You re ill and you have been vomiting or have diarrhea: You must use another form of control with the pill since the pill may not be fully absorbed during your illness. Continue to use the added control until the end of the cycle. Desire to become : Stop using the pill for one month before trying to become . Taking other medications: The control pill is less effective when you take the antibiotic Rifampin, epilepsy (seizure) drugs such as phenytoin, carbamazepine, phenobarbital, topiramate and some medications for HIV. Let your doctor know if you start taking any of these medications while on the pill. Symptoms to Notify Your Doctor with Immediately: Pain in your chest or legs Continuous blurred vision Severe headaches Slurred speech Tingling or weakness on one side of your body Shortness of breath Swelling of one leg Refills of Control Pills You need to see a doctor every year for a refill of your prescription. This is necessary in order that your health can be monitored closely while you are taking control pills. If your prescription should before your next scheduled appointment you can usually get a one month extension from your doctors office if you call during regular business hours about one week before you need to start the new package of pills. This allows the physician to refer to your chart for necessary health information. documented in this encounter [facility] 11-05-2024 Note HNO ID: [id number] Author: GEOVANNA AVILEZ APRN.CNM Service: ? Author Type: Weed Sprayer Type: Progress Notes Filed: 11/16/2024 07:33 Note Text: Obstetrics and Gynecology [place] [employer] CASTER APPRENTICE Visit Subjective Recording using ambient AI software for draft documentation of the visit was discussed with the patient/authorized floor representative; all questions welcomed and answered. Patient/authorized floor representative agreed to proceed DISTANCE HEALTH VISIT This Team Access Model visit is a virtual encounter. It required patient-provider interaction for the medical decision making as documented below. I have communicated my name and active licensure. The patient's identity and physical location were verified at the time of this visit. Either the patient or their legal floor representative has been informed of the risks and benefits of -- and alternatives to -- treatment through a remote evaluation and consents to proceed with the evaluation remotely. CHIEF COMPLAINT: Follow up HPI: The patient is a 34-year-old female, , with a history of HTN and POTS, presenting for follow-up on irregular menses and severe dysmenorrhea. The patient reports irregular menses with minimal intervals of 3-4 days between periods and severe pain since her in November. She recently stopped 1 month ago. She denies previous use of an IUD. She expresses concern about the potential need for a hysterectomy, noting that her POTS symptoms, including syncope, worsen with hormonal fluctuations. 10/22/24 Visit: The patient is a 34-year-old female, , with a history of HTN, presenting with concerns of irregular menses and severe dysmenorrhea. The patient reports experiencing two menstrual periods per month since June, following the resumption of menses after her last delivery via on 11/30/2023. She notes minimal intervals of 3-4 days between periods, with occasional longer intervals of up to 1.5 weeks. She describes severe pain occurring 1-2 days before each period, likening it to contractions that are intense enough to double her over but last only a few minutes. She denies any vaginal discharge, pruritus, burning, or malodor. She reports dyspareunia but denies postcoital bleeding. She is not currently using any form of contraception. 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 Likely round ligament pain. To notify if persistent or worsening. Lyme disease Mesenteric lymphadenitis POTS (postural orthostatic tachycardia syndrome) TIA (transient ischemic attack) 04/2023 Vaginal bleeding in , first trimester ([facility]) 07/01/2023 Per OB records, humza gestational hemorrhage: 2.4 cm on dating ultrasound. Reviewed likely the cause of her bleeding and that it likely resolved. Plans for NT scan and will confirm. No further bleeding. PAST SURGICAL HISTORY Procedure Laterality Date DELIVERY ONLY 2021 DELIVERY ONLY 11/30/2023 LT D AND C 07/17/2018 FOr retained POC EXCIS UTERINE FIBROID,VAG APPRCH 07/2018 PORT Insertion AND removal x 2 FAMILY HISTORY Problem Relation Age of Onset No Known Problems Mother Hypertension Father other (Sloping Brain Syndrome) Father Hypertension Sister No Known Problems Sister Heart Attack Maternal Grandmother Stroke Maternal Grandmother 63 No Known Problems Maternal Grandfather Social History Tobacco Use Smoking status: Never Passive exposure: Never Smokeless tobacco: Never Vaping Use Vaping status: Never Used Substance Use Topics Alcohol use: Never Drug use: Never Current Outpatient Medications Medication Sig Norethindrone, Contraceptive, 0.35 mg tablet Take 1 tablet by mouth once daily. labetalol (TRANDATE) 100 mg tablet Take 1 tablet by mouth two times a day. PNV no.95/ferrous fum/folic ac ( ORAL) Take by mouth. loratadine (CLARITIN) 10 mg tablet Take 1 tablet by mouth once daily as needed (for allergy symptoms.). No current facility-administered medications for this visit. ALLERGIES Allergen Reactions Adhesive Tape-Silic* Rash Tegaderm dressing Latex, Natural Rubb* Hives, Rash Nifedipine Rash Adhesive Tape (Isabel* Rash Tegaderm Latex Rash Sulfa (Sulfonamide * Rash Venom-Honey Bee Swelling REVIEW OF SYSTEMS: Genitourinary: (+) irregular menses, (+) dysmenorrhea Neurolo (more content not included)... [facility] 11-05-2024 History of Presen t illness Narrative Images from the original note were not included. 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 Patient/authorized floor representative agreed to proceed DISTANCE HEALTH VISIT This Team Access Model visit is a virtual encounter. It required patient-provider interaction for the medical decision making as documented below. I have communicated my name and active licensure. The patient's identity and physical location were verified at the time of this visit. Either the patient or their legal floor representative has been informed of the risks and benefits of -- and alternatives to -- treatment through a remote evaluation and consents to proceed with the evaluation remotely. CHIEF COMPLAINT: Follow up HPI: The patient is a 34-year-old female, , with a history of HTN and POTS, presenting for follow-up on irregular menses and severe dysmenorrhea. The patient reports irregular menses with minimal intervals of 3-4 days between periods and severe pain since her in November. She recently stopped 1 month ago. She denies previous use of an IUD. She expresses concern about the potential need for a hysterectomy, noting that her POTS symptoms, including syncope, worsen with hormonal fluctuations. 10/22/24 Visit: The patient is a 34-year-old female, , with a history of HTN, presenting with concerns of irregular menses and severe dysmenorrhea. The patient reports experiencing two menstrual periods per month since June, following the resumption of menses after her last delivery via on 11/30/2023. She notes minimal intervals of 3-4 days between periods, with occasional longer intervals of up to 1.5 weeks. She describes severe pain occurring 1-2 days before each period, likening it to contractions that are intense enough to double her over but last only a few minutes. She denies any vaginal discharge, pruritus, burning, or malodor. She reports dyspareunia but denies postcoital bleeding. She is not currently using any form of contraception. 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 Likely round ligament pain. To notify if persistent or worsening. Lyme disease Mesenteric lymphadenitis POTS (postural orthostatic tachycardia syndrome) TIA (transient ischemic attack) 04/2023 Vaginal bleeding in , first trimester ([facility]) 07/01/2023 Per OB records, humza gestational hemorrhage: 2.4 cm on dating ultrasound. Reviewed likely the cause of her bleeding and that it likely resolved. Plans for NT scan and will confirm. No further bleeding. PAST SURGICAL HISTORY Procedure Laterality Date DELIVERY ONLY 2021 DELIVERY ONLY 11/30/2023 LTCS D AND C 07/17/2018 FOr retained [facility]OC [facility] 07/[facility] PORT Insertion & removal x 2 FAMILY HISTORY Problem Relation Age of Onset No Known Problems Mother Hypertension Father other (Sloping Brain Syndrome) Father Hypertension Sister No Known Problems Sister Heart Attack Maternal Grandmother Stroke Maternal Grandmother 63 No Known Problems Maternal Grandfather Social History Tobacco Use Smoking status: Never Passive exposure: Never Smokeless tobacco: Never Vaping Use Vaping status: Never Used Substance Use Topics Alcohol use: Never Drug use: Never Current Outpatient Medications Medication Sig Norethindrone, Contraceptive, 0.35 mg tablet Take 1 tablet by mouth once daily. labetalol (TRANDATE) 100 mg tablet Take 1 tablet by mouth two times a day. PNV no.95/ferrous fum/folic ac ( ORAL) Take by mouth. loratadine (CLARITIN) 10 mg tablet Take 1 tablet by mouth once daily as needed (for allergy symptoms.). No current facility-administered medications for this visit. ALLERGIES Allergen Reactions Adhesive Tape-Silic* Rash Tegaderm dressing Latex, Natural Rubb* Hives, Rash Nifedipine Rash Adhesive Tape (Isabel* Rash Tegaderm Latex Rash Sulfa (Sulfonamide * Rash Venom-Honey Bee Swelling REVIEW OF SYSTEMS: Genitourinary: (+) irregular menses, (+) dysmenorrhea Neurological: (+) syncope Objective SENSITIVE EXAM: Sensitive exam not performed. PHYSICAL EXAM: LMP 10/03/2024 GENERAL: Pleasant; in no apparent distress BREAST: soft, non-tender, symmetric, no dominant mass, normal nipple-areolar complex, no lymphadenopathy, no nipple discharge PULMONARY: normal inspiratory effort ABDOMEN: soft, non-tender, no masses : - PELVIC: external genitalia normal, normal Bartholin's glands, urethra, [place]'s glands, no vulvar lesions, no cervical lesions, good vaginal support, physiologic discharge present, normal appearing perineal body and perianal region - BIMANUAL: uterus normal size, shape and consistency, no adnexal masses, non-tender - Patient consent for exam received NEURO: alert and oriented x3 EXTREMITIES: normal Impression The uterus is anteverted and measures 86 mm x 42 mm x 66 mm. The uterus is subseptate with a 1.4 mm septum. The right side of the endometrial cavity appears to be underdeveloped with an endometrial thickness of 5 mm when compared to the left side of the endometrial cavity with an endometrial thickness of 7 mm. section niche is visualized. There is a hyperechoic island on the right side measuring 5 mm x 6 mm x 3 mm in addition to myometrial cysts. This is suggestive of adenomyosis. The right ovary measures 38 mm x 12 mm x 13 mm. The left ovary measures 24 mm x 18 mm x 40 mm. There is no free fluid visualized. Recommendations 1. Subseptate uterus with underdeveloped right side. 2. Ultrasound suggestive of focal adenomyosis. Clinical correlation. Latest Ref [facility] 10/22/2024 WBC 3.70 - 11.00 k/uL 7.71 RBC 3.90 - 5.20 m/uL 4.50 Hemoglobin 11.5 - 15.5 g/dL 13.1 Hematocrit 36.0 - 46.0 % 39.3 MCV 80.0 - 100.0 fL 87.3 MCH 26.0 - 34.0 pg 29.1 MCHC 30.5 - 36.0 g/dL 33.3 RDW-CV 11.5 - 15.0 % 12.6 Platelet Count 150 - 400 k/uL 304 MPV 9.0 - 12.7 fL 10.2 Neut% % 61.1 Abs Neut (ANC) 1.45 - 7.50 k/uL 4.71 Lymph% % 23.5 Abs Lymph 1.00 - 4.00 k/uL 1.81 Blair% % 8.0 Abs Blair <0.87 k/uL 0.62 Eosin% % 6.5 Abs Eosin <0.46 k/uL 0.50 (H) Baso% % 0.6 Abs Baso <0.11 k/uL 0.05 Immature Gran % % 0.3 IMMATURE GRANS (ABS) <0.10 k/uL <0.03 NRBC /100 WBC 0.0 Absolute nRBC <0.01 k/uL <0.01 DTYPE Auto TSH 0.270 - 4.200 mIU/L 0.837 Free T4 0.9 - 1.7 ng/dL 0.9 Legend: (H) High Assessment & Plan ASSESSMENT AND PLAN: 1. Adenomyosis of uterus (N80.03) Irregular menstruation (N92.6) Ultrasound reveals a normal-sized uterus with a septated area, suggestive of adenomyosis. Patient has chronic hypertension, limiting the use of estrogen-containing contraceptives. Recent cessation of may contribute to hormonal fluctuations affecting menstrual regularity. - Initiated Micronor, a progestin-only oral contraceptive, to stabilize menstrual cycles and alleviate dysmenorrhea. - Educated patient on the potential side effects and benefits of Micronor, emphasizing the importance of daily adherence. - Scheduled follow-up in 3-4 months to assess response to treatment. - Discussed the possibility of hysterectomy as a last resort if symptoms do not improve with medical management. Geovanna Avilez APRN.CNM I spent 10 minutes in the visit, with more than 50% of the total [id number] time of the visit in counseling / coordination of care. documented in this encounter [facility] 10-31-2024 Telephone encounter Note Patient called and virtual visit scheduled. Ester Sandoval RN [facility] 10-31-2024 Miscellaneous Notes Patient called and virtual visit scheduled. Ester Sandoval RN Tuesday at 1130 or 330. Geovanna Navarro APRN.CNM Patient called to schedule. There are no available appointments with you next week either. When would you like her worked in? Thank you. You have no openings next week. Where would you like patient to be seen? Ester Sandoval RN Please assist in scheduling with me for next week for follow up. Thanks, Geovanna Avilez APRN.CNM No openings with you tomorrow. Where would you like patient added? Delmy Caballero RN Please schedule patient with me for virtual visit tomorrow to discuss results and plan of care. Geovanna Avilez APRN.CNM documented in this encounter [facility] 10-31-2024 Telephone encounter Note Tuesday at 1130 or 330. Thanks, Geovanna Avilez APRN.CNM [facility] 10-31-2024 Telephone encounter Note Patient called to schedule. There are no available appointments with you next week either. When would you like her worked in? Thank you. [facility] 10-31-2024 Telephone encounter Note You have no openings next week. Where would you like patient to be seen? Ester Sandoval RN [facility] 10-31-2024 Telephone encounter Note Please assist in scheduling with me for next week for follow up. Thanks, Geovanna Avilez APRN.CNM [facility] 10-30-2024 Telephone encounter Note No openings with you tomorrow. Where would you like patient added? Delmy Caballero, RN [facility] 10-30-2024 Telephone encounter Note Please schedule patient with me for virtual visit tomorrow to discuss results and plan of care. Geovanna Avilez APRN.CNM [facility] 10-27-2024 Note HNO ID: [id number] Author: KAYLYNN LOOMIS MD Service: ? Author Type: Physician Type: Progress Notes Filed: 10/27/2024 11:52 Note Text: The patient presents for requested ultrasound. Full report available in the Imaging tab in [employer]. Kaylynn Loomis MD [facility] 10-27-2024 History of Presen t illness Narrative The patient presents for requested ultrasound. Full report available in the Imaging tab in [employer]. Kaylynn Loomis MD documented in this encounter [facility] 10-22-2024 Note HNO ID: [id number] Author: GEOVANNA AVILEZ APRN.CNM Service: ? 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 Patient/authorized floor representative agreed to proceed CHIEF COMPLAINT: Irregular menses HPI: The patient is a 34-year-old female, , with a history of HTN, presenting with concerns of irregular menses and severe dysmenorrhea. The patient reports experiencing two menstrual periods per month since June, following the resumption of menses after her last delivery via on 11/30/2023. She notes minimal intervals of 3-4 days between periods, with occasional longer intervals of up to 1.5 weeks. She describes severe pain occurring 1-2 days before each period, likening it to contractions that are intense enough to double her over but last only a few minutes. She denies any vaginal discharge, pruritus, burning, or malodor. She reports dyspareunia but denies postcoital bleeding. She is not currently using any form of contraception. 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 Likely round ligament pain. To notify if persistent or worsening. Lyme disease Mesenteric lymphadenitis POTS (postural orthostatic tachycardia syndrome) TIA (transient ischemic attack) 04/2023 Vaginal bleeding in , first trimester ([facility]) 07/01/2023 Per OB records, humza gestational hemorrhage: 2.4 cm on dating ultrasound. Reviewed likely the cause of her bleeding and that it likely resolved. Plans for NT scan and will confirm. No further bleeding. PAST SURGICAL HISTORY Procedure Laterality Date DELIVERY ONLY 2021 DELIVERY ONLY 11/30/2023 LTCS D AND C 07/17/2018 FOr retained POC EXCIS UTERINE FIBROID,VAG APPRCH 07/2018 PORT Insertion AND removal x 2 FAMILY HISTORY Problem Relation Age of Onset No Known Problems Mother Hypertension Father other (Sloping Brain Syndrome) Father Hypertension Sister No Known Problems Sister Heart Attack Maternal Grandmother Stroke Maternal Grandmother 63 No Known Problems Maternal Grandfather Social History Tobacco Use Smoking status: Never Passive exposure: Never Smokeless tobacco: Never Vaping Use Vaping status: Never Used Substance Use Topics Alcohol use: Never Drug use: Never Current Outpatient Medications Medication Sig labetalol (TRANDATE) 100 mg tablet Take 1 tablet by mouth two times a day. PNV no.95/ferrous fum/folic ac ( ORAL) Take by mouth. loratadine (CLARITIN) 10 mg tablet Take 1 tablet by mouth once daily as needed (for allergy symptoms.). No current facility-administered medications for this visit. ALLERGIES Allergen Reactions Adhesive Tape-Silic* Rash Tegaderm dressing Latex, Natural Rubb* Hives, Rash Nifedipine Rash Adhesive Tape (Isabel* Rash Tegaderm Latex Rash Sulfa (Sulfonamide * Rash Venom-Honey Bee Swelling REVIEW OF SYSTEMS: Genitourinary: (+) irregular menses, (+) dysmenorrhea, (+) left pelvic pain, (+) dyspareunia, (-) vaginal discharge, (-) vaginal pruritus, (-) vaginal burning, (-) vaginal odor, (-) postcoital bleeding Psychiatric: (+) irritability Objective SENSITIVE EXAM: The sensitive examination was discussed with the Patient or Patient's Authorized Geneticist. As applicable, any other physician, advance practice provider, medical student, or other health professional student that will be observing or involved in the sensitive examination for educational or training purposes was discussed with the Patient or Authorized Geneticist. The Patient or Authorized Geneticist has agreed to proceed with the sensitive examination. (Sensitive examination includes inspection and/or palpation of the breasts, pelvis, prostate and anorectal regions). PHYSICAL EXAM: BP 118/72 Wt 185 lb (83.9kg) LMP 10/03/2024 GENERAL: Pleasant; in no apparent distress BREAST: soft, non-tender, symmetric, no dominant mass, normal nipple-areolar complex, no lymphadenopathy, no nipple discharge PULMONARY: normal inspiratory effort ABDOMEN: soft, non-tender, no masses : - PELVIC: external ge (more content not included)... [facility] 10-22-2024 History of Presen t illness Narrative Images from the original note were not included. 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 Patient/authorized floor representative agreed to proceed CHIEF COMPLAINT: Irregular menses HPI: The patient is a 34-year-old female, , with a history of HTN, presenting with concerns of irregular menses and severe dysmenorrhea. The patient reports experiencing two menstrual periods per month since June, following the resumption of menses after her last delivery via on 11/30/2023. She notes minimal intervals of 3-4 days between periods, with occasional longer intervals of up to 1.5 weeks. She describes severe pain occurring 1-2 days before each period, likening it to contractions that are intense enough to double her over but last only a few minutes. She denies any vaginal discharge, pruritus, burning, or malodor. She reports dyspareunia but denies postcoital bleeding. She is not currently using any form of contraception. 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 Likely round ligament pain. To notify if persistent or worsening. Lyme disease Mesenteric lymphadenitis POTS (postural orthostatic tachycardia syndrome) TIA (transient ischemic attack) 04/2023 Vaginal bleeding in , first trimester ([facility]) 07/01/2023 Per OB records, humza gestational hemorrhage: 2.4 cm on dating ultrasound. Reviewed likely the cause of her bleeding and that it likely resolved. Plans for NT scan and will confirm. No further bleeding. PAST SURGICAL HISTORY Procedure Laterality Date DELIVERY ONLY 2021 DELIVERY ONLY 11/30/2023 LTCS D AND C 07/17/2018 FOr retained POC EXCIS UTERINE FIBROID,VAG APPRCH 07/2018 PORT Insertion & removal x 2 FAMILY HISTORY Problem Relation Age of Onset No Known Problems Mother Hypertension Father other (Sloping Brain Syndrome) Father Hypertension Sister No Known Problems Sister Heart Attack Maternal Grandmother Stroke Maternal Grandmother 63 No Known Problems Maternal Grandfather Social History Tobacco Use Smoking status: Never Passive exposure: Never Smokeless tobacco: Never Vaping Use Vaping status: Never Used Substance Use Topics Alcohol use: Never Drug use: Never Current Outpatient Medications Medication Sig labetalol (TRANDATE) 100 mg tablet Take 1 tablet by mouth two times a day. PNV no.95/ferrous fum/folic ac ( ORAL) Take by mouth. loratadine (CLARITIN) 10 mg tablet Take 1 tablet by mouth once daily as needed (for allergy symptoms.). No current facility-administered medications for this visit. ALLERGIES Allergen Reactions Adhesive Tape-Silic* Rash Tegaderm dressing Latex, Natural Rubb* Hives, Rash Nifedipine Rash Adhesive Tape (Isabel* Rash Tegaderm Latex Rash Sulfa (Sulfonamide * Rash Venom-Honey Bee Swelling REVIEW OF SYSTEMS: Genitourinary: (+) irregular menses, (+) dysmenorrhea, (+) left pelvic pain, (+) dyspareunia, (-) vaginal discharge, (-) vaginal pruritus, (-) vaginal burning, (-) vaginal odor, (-) postcoital bleeding Psychiatric: (+) irritability Objective SENSITIVE EXAM: The sensitive examination was discussed with the Patient or Patient's Authorized Geneticist. As applicable, any other physician, advance practice provider, medical student, or other health professional student that will be observing or involved in the sensitive examination for educational or training purposes was discussed with the Patient or Authorized Geneticist. The Patient or Authorized Geneticist has agreed to proceed with the sensitive examination. (Sensitive examination includes inspection and/or palpation of the breasts, pelvis, prostate and anorectal regions). PHYSICAL EXAM: BP 118/72 Wt 185 lb (83.9kg) LMP 10/03/2024 GENERAL: Pleasant; in no apparent distress BREAST: soft, non-tender, symmetric, no dominant mass, normal nipple-areolar complex, no lymphadenopathy, no nipple discharge PULMONARY: normal inspiratory effort ABDOMEN: soft, non-tender, no masses : - PELVIC: external genitalia normal, normal Bartholin's glands, urethra, [place]'s glands, no vulvar lesions, no cervical lesions, good vaginal support, physiologic discharge present, normal appearing perineal body and perianal region - BIMANUAL: uterus normal size, shape and consistency, no adnexal masses, left-sided pelvic pain on palpation - Patient consent for exam received NEURO: alert and oriented x3 EXTREMITIES: normal SENSITIVE EXAMINATION CONSENT: The sensitive examination was discussed with the Patient or Patient's Authorized Geneticist. As applicable, any other physician, advance practice provider, medical student, or other health professional student that will be observing or involved in the sensitive examination for educational or training purposes was discussed with the Patient or Authorized Geneticist. The Patient or Authorized Geneticist has agreed to proceed with the sensitive examination. Assessment & Plan ASSESSMENT AND PLAN: 1. Abnormal uterine bleeding (AUB) Dysmenorrhea - Ordered TSH and CBC to evaluate thyroid function and assess for anemia. - Ordered pelvic ultrasound to rule out structural abnormalities. - Discussed potential for hormonal regulation to stabilize menstrual cycles post-. - Discussed treatment options including Aygestin, a progesterone-only medication, to be taken in a tapering dose to stabilize uterine lining and regulate cycles. - Advised that Aygestin may not fully address dysmenorrhea; discussed alternative options such as Micronor, Ortho Micronor, or Slynd, which are progesterone-only control pills. - Patient to schedule ultrasound and complete lab work today. - Will follow up with patient via MyChart to discuss lab and ultrasound results and finalize treatment plan. Geovanna Avilez APRN.CNM documented in this encounter [facility] 09-30-2024 Note HNO ID: [id number] Author: JENIFFER STYLES APRN.CNP Service: ? Author Type: Nurse Practitioner Type: Progress Notes Filed: 09/30/2024 15:21 Note Text: [facility] Subjective HPI HPI Clarisa De La Cruz is a 34 year old female who presents today for CC of cough, sinus, ear pressure. This started 2 weeks ago. Has tried otc medication for relief. Symptoms are worsened by nothing. Risk factors sick exposures at home and school. .Patient presents with: Ear Pain Cough PAST MEDICAL HISTORY Diagnosis Date Anemia 07/2018 Arachnoid cyst History of intrauterine in previous 07/01/2023 Hx of preeclampsia, prior , currently ([facility]) 01/2021 Around 32weeks Left lower quadrant abdominal pain 07/01/2023 Reports random sharp pain to left side. Likely round ligament pain. To notify if persistent or worsening. Lyme disease Mesenteric lymphadenitis POTS (postural orthostatic tachycardia syndrome) TIA (transient ischemic attack) 04/2023 Vaginal bleeding in , first trimester ([facility]) 07/01/2023 Per OB records, humza gestational hemorrhage: 2.4 cm on dating ultrasound. Reviewed likely the cause of her bleeding and that it likely resolved. Plans for NT scan and will confirm. No further bleeding. PAST SURGICAL HISTORY Procedure Laterality Date DELIVERY ONLY 2021 DELIVERY ONLY 11/30/2023 LTCS D AND C 07/17/2018 FOr retained POC EXCIS UTERINE [facility]IBROID,[facility] 07/2018 PORT Insertion AND removal x 2 ALLERGIES Adhesive Tape-Silicones; Latex, Natural Rubber; Nifedipine; Adhesive Tape (Rosins); Latex; Sulfa (Sulfonamide Antibiotics); and Venom-Honey Bee MEDICATIONS labetalol (TRANDATE) 100 mg tablet Take 1 tablet by mouth two times a day. PNV no.95/ferrous fum/folic ac ( ORAL) Take by mouth. loratadine (CLARITIN) 10 mg tablet Take 1 tablet by mouth once daily as needed (for allergy symptoms.). FAMILY HISTORY Problem Relation Age of Onset No Known Problems Mother Hypertension Father other (Sloping Brain Syndrome) Father Hypertension Sister No Known Problems Sister Heart Attack Maternal Grandmother Stroke Maternal Grandmother 63 No Known Problems Maternal Grandfather Social History Tobacco Use Smoking status: Never Passive exposure: Never Smokeless tobacco: Never Vaping Use Vaping status: Never Used Substance Use Topics Alcohol use: Never Drug use: Never Review of Systems Constitutional: Negative for chills, fatigue and fever. HENT: Positive for ear pain, rhinorrhea, sinus pressure and sore throat. Negative for ear discharge and sinus pain. Eyes: Negative for discharge and redness. Respiratory: Positive for cough. Negative for shortness of breath and wheezing. Cardiovascular: Negative for chest pain. Skin: Negative for rash. Objective BP 140/80 Pulse 96 Temp 36.8 ?C (98.3 ?F) Ht 171.5 cm (5' 7.5) Wt 83.9 kg (185 lb) LMP 03/27/2023 SpO2 98% BMI 28.55 kg/m? Physical Exam Constitutional: General: She is not in acute distress. Appearance: She is not toxic-appearing or diaphoretic. HENT: Head: Normocephalic and atraumatic. Right Ear: Hearing, ear canal and external ear normal. A middle ear effusion is present. Left Ear: Hearing, ear canal and external ear normal. A middle ear effusion is present. Nose: Nose normal. Mouth/Throat: Pharynx: Uvula midline. Eyes: General: Lids are normal. No scleral icterus. Right eye: No discharge. Left eye: No discharge. Conjunctiva/sclera: Conjunctivae normal. Pupils: Pupils are equal, round, and reactive to light. Neck: Trachea: Trachea normal. Cardiovascular: Rate and Rhythm: Normal rate and regular rhythm. Heart sounds: Normal heart sounds. Pulmonary: Effort: Pulmonary effort is normal. Breath sounds: Normal breath sounds. Musculoskeletal: Cervical back: Normal range of motion and neck supple. Lymphadenopathy: Cervical: No cervical adenopathy. Skin: Findings: No rash. Neurological: Mental Status: She is alert and oriented to person, place, and time. {ASSESSMENT/PLAN: 1. Sinobronchitis - ICD9: 473.9, 490, ICD10: J32.9, J40 - Will begin treatment with as per antibiotic as written, see orders - Supportive care with plenty of fluids, rest, and analgesia prn. - Follow up in 3-5 days if symptoms persist or worsen. - AMOXICILLIN 875 MG-POTASSIUM CLAVULANATE 125 MG TABLET Jeniffer Styles APRN.CHECK WEIGHER History and Record Review External record(s) reviewed: prior outpatient record. Disposition The patient was discharged. Procedures [facility] 09-30-2024 History of Presen t illness Narrative [facility] Subjective HPI HPI Clarisa De La Cruz is a 34 year old female who presents today for CC of cough, sinus, ear pressure. This started 2 weeks ago. Has tried otc medication for relief. Symptoms are worsened by nothing. Risk factors sick exposures at home and school. .Patient presents with: Ear Pain Cough PAST MEDICAL HISTORY Diagnosis Date Anemia 07/2018 Arachnoid cyst History of intrauterine in previous 07/01/2023 Hx of preeclampsia, prior , currently ([facility]) 01/2021 Around 32weeks Left lower quadrant abdominal pain 07/01/2023 Reports random sharp pain to left side. Likely round ligament pain. To notify if persistent or worsening. Lyme disease Mesenteric lymphadenitis POTS (postural orthostatic tachycardia syndrome) TIA (transient ischemic attack) 04/2023 Vaginal bleeding in , first trimester ([facility]) 07/01/2023 Per OB records, humza gestational hemorrhage: 2.4 cm on dating ultrasound. Reviewed likely the cause of her bleeding and that it likely resolved. Plans for NT scan and will confirm. No further bleeding. PAST SURGICAL HISTORY Procedure Laterality Date DELIVERY ONLY 2021 DELIVERY ONLY 11/30/2023 LTCS D AND C 07/17/2018 FOr retained POC EXCIS UTERINE FIBROID,VAG [facility] 07/2018 PORT Insertion & removal x 2 ALLERGIES Adhesive Tape-Silicones; Latex, Natural Rubber; Nifedipine; Adhesive Tape (Rosins); Latex; Sulfa (Sulfonamide Antibiotics); and Venom-Honey Bee MEDICATIONS labetalol (TRANDATE) 100 mg tablet Take 1 tablet by mouth two times a day. PNV no.95/ferrous fum/folic ac ( ORAL) Take by mouth. loratadine (CLARITIN) 10 mg tablet Take 1 tablet by mouth once daily as needed (for allergy symptoms.). FAMILY HISTORY Problem Relation Age of Onset No Known Problems Mother Hypertension Father other (Sloping Brain Syndrome) Father Hypertension Sister No Known Problems Sister Heart Attack Maternal Grandmother Stroke Maternal Grandmother 63 No Known Problems Maternal Grandfather Social History Tobacco Use Smoking status: Never Passive exposure: Never Smokeless tobacco: Never Vaping Use Vaping status: Never Used Substance Use Topics Alcohol use: Never Drug use: Never Review of Systems Constitutional: Negative for chills, fatigue and fever. HENT: Positive for ear pain, rhinorrhea, sinus pressure and sore throat. Negative for ear discharge and sinus pain. Eyes: Negative for discharge and redness. Respiratory: Positive for cough. Negative for shortness of breath and wheezing. Cardiovascular: Negative for chest pain. Skin: Negative for rash. Objective BP 140/80 Pulse 96 Temp 36.8 C (98.3 F) Ht 171.5 cm (5' 7.5) Wt 83.9 kg (185 lb) LMP 03/27/2023 SpO2 98% BMI 28.55 kg/m Physical Exam Constitutional: General: She is not in acute distress. Appearance: She is not toxic-appearing or diaphoretic. HENT: Head: Normocephalic and atraumatic. Right Ear: Hearing, ear canal and external ear normal. A middle ear effusion is present. Left Ear: Hearing, ear canal and external ear normal. A middle ear effusion is present. Nose: Nose normal. Mouth/Throat: Pharynx: Uvula midline. Eyes: General: Lids are normal. No scleral icterus. Right eye: No discharge. Left eye: No discharge. Conjunctiva/sclera: Conjunctivae normal. Pupils: Pupils are equal, round, and reactive to light. Neck: Trachea: Trachea normal. Cardiovascular: Rate and Rhythm: Normal rate and regular rhythm. Heart sounds: Normal heart sounds. Pulmonary: Effort: Pulmonary effort is normal. Breath sounds: Normal breath sounds. Musculoskeletal: Cervical back: Normal range of motion and neck supple. Lymphadenopathy: Cervical: No cervical adenopathy. Skin: Findings: No rash. Neurological: Mental Status: She is alert and oriented to person, place, and time. {ASSESSMENT/PLAN: 1. Sinobronchitis - ICD9: 473.9, 490, ICD10: J32.9, J40 - Will begin treatment with as per antibiotic as written, see orders - Supportive care with plenty of fluids, rest, and analgesia prn. - Follow up in 3-5 days if symptoms persist or worsen. - AMOXICILLIN 875 MG-POTASSIUM CLAVULANATE 125 MG TABLET Jeniffer Styles APRN.WILDER History and Record Review External record(s) reviewed: prior outpatient record. Disposition The patient was discharged. Procedures documented in this encounter [facility] 01-16-2024 History of Presen t illness Narrative Side Door Worker offered: Patient declines. VISIT Clarisa De La Cruz is a 33 year old year old here for visit. Delivery Summary: C/S 11/30/2023 ROS/ Recovery: Feeding: Breast feeding problems: None Menses since delivery: none Menstrual pattern prior to : Regular periods [place] since delivery: Not resumed Depression: denies symptoms of depression. OB Depression and Anxiety Screening- This Encounter (since 01/15/2024) Over the past 2 weeks have you felt down, depressed, or hopeless? Negative Over the past two weeks, have you felt little interest or pleasure in doing things? Negative Feeling nervous, anxious or on edge 0-Not at all Not being able to stop or control worrying 0-Not al all Anxiety Pre-Screening Total (If >/= 3 additional questions will be reviewed) 0 Emotional support: Yes Bowel symptoms: Negative for abdominal discomfort, blood in stools or black stools and change in bowel habits Abdomen: She reports no incisional redness, tenderness, erythema Bladder symptoms: No dysuria, gross hematuria, urinary frequency, urinary urgency, or incontinence Other issues: None Last Pap: N/A normal HPV: N/A PAST MEDICAL HISTORY 07/2018: Anemia No date: Arachnoid cyst 07/01/2023: History of intrauterine in previous 01/2021: Hx of preeclampsia, prior , currently Comment: Around 32weeks 07/01/2023: Left lower quadrant abdominal pain Comment: Reports random sharp pain to left side. Likely round ligament pain. To notify if persistent or worsening. 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 Reviewed likely the cause of her bleeding and that it likely resolved. Plans for NT scan and will confirm. No further bleeding. PAST SURGICAL HISTORY 2021: DELIVERY ONLY 11/30/2023: DELIVERY ONLY Comment: LTCS 07/17/2018: D AND C Comment: FOr retained POC 07/2018: EXCIS UTERINE FIBROID,VAG [facility] No date: PORT Comment: Insertion & removal x 2 FAMILY HISTORY Problem Relation Age of Onset No Known Problems Mother Hypertension Father other (Sloping Brain Syndrome) Father Hypertension Sister No Known Problems Sister Heart Attack Maternal Grandmother Stroke Maternal Grandmother 63 No Known Problems Maternal Grandfather Social History Tobacco Use Smoking status: Never Passive exposure: Never Smokeless tobacco: Never Vaping Use Vaping status: Never Used Substance Use Topics Alcohol use: Never Drug use: Never Reviewed above and agree. PHYSICAL EXAMINATION: Wt 180 lb (81.6kg) LMP 03/27/2023 GENERAL: pleasant, female in no apparent distress HEENT: Normocephalic, atraumatic, mucus membranes moist, and no lesions NECK: Supple, full range of motion, no adenopathy, and thyroid normal DERMATOLOGY: Normal, without lesions, non-icteric, and non-hirsute BREAST: soft, non-tender, symmetric, no dominant mass, normal nipple-areolar complex, no lymphadenopathy, and no nipple discharge CHEST: Normal inspiratory effort ABDOMEN: soft, non-tender, and no masses. INCISION: N/A PELVIC: external genitalia normal, normal Bartholin's glands, urethra, [place]'s glands, no vulvar lesions, no cervical lesions, good vaginal support, physiologic discharge present, normal appearing perineal body and perianal region BIMANUAL: uterus normal size, shape and consistency, no adnexal masses, and non-tender NEURO: alert and oriented x3,exam grossly non-focal EXTREMITIES: normal ASSESSMENT AND PLAN: 33 year old status post CS with normal course. Contraception plan: condoms Follow up: RTC for annual exams and PRN Tabby Krueger MD documented in this encounter [facility] 01-10-2024 Instructions Silvestre Mina APRN.[facility] - 01/10/2024 7:22 AM EDT AND -MIGRAINE MANAGEMENT Mary Hendrix MD [facility] August 2014 Along with the excitement of a possible , migraineurs often experience a feeling of dread, wondering which headache medications need to be discontinued and how to manage expected migraines without their usual treatment regimen. This anxiety extends from the time when is possible but not established, during the 9 months of actual and beyond, when passes on mother s milk to the infant. The good news is that most women notice their migraines either go away or greatly improve in the 2nd and 3rd trimesters of . At least 4-8% of women do not have this henri break, and for them managing migraines can be particularly challenging. After delivery, most women quickly return to their pre- migraine pattern. While nursing, many medications remain off the safe list because of potential problems passed through the mother s milk, but treatment options do improve. Perhaps, the most difficult time is when a woman is planning and it is unknown whether she is actually . Unfortunately, to avoid exposure to potentially harmful medications, it is necessary to stop most migraine preventive medications and avoid the use of typical prescribed and [id number] as-needed medications previously used for headache. During normal menstrual periods, using these acute medications may be considered safe, as flow signals that a has not actually taken place. At other times, it must be presumed a woman is if she is not using contraception. Migraine preventive medications do not generally permit the luxury of stopping and starting abruptly, and need to be tapered when planning a , or as soon as possible in the event of an unplanned . Many medications are best removed by a gentle wean, although others can be stopped quickly, particularly in situations in which an unplanned is confirmed. Any confirmed while taking medications should result in a phone call to the headache treatment provider s office for immediate advice, followed by an office visit for migraine management counseling while . Grouping medications into three broad categories, there are those known to cause harm in humans or animals, those for which no harm has been found to date, and those that have been studied extensively through testing and/or patient and infant follow-up, with no increase in or infant defects. Before deciding if a medication is needed to help prevent or treat migraines in , it may be best to consider the safest interventions, which are lifestyle changes likely to reduce the frequency and severity of migraine. These include eating regular, healthy meals, adequate sleep, and at least one half hour of exercise (walking is fine) per day. Behavioral treatment for stress reduction such as relaxation training, biofeedback, and yoga may be helpful. Options are limited in prescription preventive medications, because of the need to avoid any medication that has shown some problem in animals or fetuses. Memantine (brand name Namenda, Cotendo, [facility]) is one of the few preventives not found to cause harm in developing fetuses. It is a drug typically used to treat dementia, but it has also been found to be helpful in some studies of migraine prevention. It works by blocking glutamate, a chemical associated with increased migraine pain and frequency. Another preventive medication used in is cyproheptadine, an antihistamine. It has been used for decades for migraine prevention, is considered safe in , and is inexpensive. However, the major drawbacks include weight gain and fatigue, so this medication has limited appeal in those who are not . Taking cyproheptadine at night and at the lowest effective dosage can be helpful. It is not to be used in , though. Magnesium is safe migraine preventive medication in . Acupuncture is controversial with regards to effectiveness for migraine. Clear proof of effectiveness has not been found, and when used in there can be an increased risk of miscarriage depending on the location of needle placement. Licensed massage can be helpful in the hands of a knowledgeable practitioner familiar with precautions. When a woman does get a migraine, there are as-needed medications that are considered likely to be safe. These include metoclopramide, diphenhydramine, caffeine, cyproheptadine, and acetaminophen. However, even acetaminophen, often felt to be the safest headache medication in , has recently shown some possibility of risk. A large [place] study found an increased frequency of behavioral disorders such as hyperactivity in children whose mothers took acetaminophen while . Although this study is new and further investigation is needed, it serves as a caution against taking acetaminophen unless it is necessary, and not taking it too frequently in any case when . Nerve block injections using lidocaine, which is similar to the medication used at the dentist s office for numbing the gums, represent another option for [id number] migraines in . Lidocaine has not been found to cause defects or problems in , and is injected using a needle to block nerve pain in the head and scalp. It is low risk, but as with any injection, there is the risk of side effects coming from spreading of the medication resulting in numbing of unintended areas, bleeding, and infection. The length of relief from nerve blocks varies, but overall they are considered a safe intervention if needed. For nausea, ondansetron either in pill, dissolvable form, or given intravenously, is considered safe following extensive studies. Unfortunately, it has not been found to reduce the pain of migraine, although it is a very effective medication for the nausea. In light of the difficulties in finding a safe medication for a woman, narcotics are sometimes used. Unfortunately, opioids can create a different set of problems, plunging a patient into a chronic migraine state without access to safe rescue medication options. Using narcotics as few as 2 days per week can lead to chronic migraine, and often once a migraine is treated with narcotics, other migraine options are less effective. Narcotics do cross the placenta and can affect a fetus by slowing the heart and breathing as well as increasing the incidence of defects. Regular use can result in a withdrawal syndrome in the . A woman who becomes while taking ongoing narcotics will need to consult with her provider as soon as possible for recommendations. Abrupt stopping of the narcotics after chronic use can result in miscarriage. As noted, after , migraines are likely to return to their previous pattern of frequency and severity. While nursing, any sedating medications will be transmitted through the mother s milk to her infant, and this includes benzodiazepine tranquilizers and narcotics. As noted before, antihistamines such as diphenhydramine and cyproheptadine are not recommended in a nursing mother. Sumatriptan has a registry of infants whose mothers used this migraine medication, and no harm was found with its use acutely to treat migraine. The [place] [employer] As noted before, association cleared sumatriptan for use in nursing mothers without the need for pump and dump. Other triptans have not been as well studied in this context, but so far there is no warning associated with their use other than the lack of controlled studies. In general, medications are passed on in a mother s milk to varying degrees, so weighing the potential risks versus the benefit of taking a given drug is necessary. An up-to-date LactMed database of medications and safety studies in nursing mothers is maintained at the web site http://toxnet.nlm .nih.gov/newtoxnet/lactmed.htm. In summary, most women will experience migraine relief in the second and third trimesters of . At other times, and when planning a , medications need to be minimized and used only after weighing the risks and benefit. Lifestyle changes, healthy sleep, exercise, and stress management techniques can be very helpful for migraine management and overall health in . After , most medications are passed on to the infant in breast milk in varying degrees. Some acute medications such as sumatriptan can be used while nursing. Discussion concerning the pros and cons of all migraine medications is recommended between providers and women who may become , are , or are nursing. NSAIDs are safe in the second trimester but cannot be used in the 3rd trimester (premature closure of heart duct) Triptans can cause spontaneous if taken during - ok to use up until the time that you know you're based on old data HOWEVER Imitrex has been promoted by [employer] for due to its safety over the last 20 years so this can be considered. Category B in -tylenol - memantine - metoclopramide - benadryl -zofran -subcutaneous lidocaine Category C in -Venlafaxine -Nortriptyline -Amitriptyline -Verapamil -Gabapentin -Pregabalin -Botox -Ibuprofen -Prednisone -Bupivicaine Category D in Lisinopril Topiramate Category X in Valproic acid Ergots /post-: In general, rapidly decreasing estrogen post- lead to increased headaches. As for other considerations, preventive treatments that are safe during include verapamil, propranolol, magnesium, and vitamin B2. Acute treatments include ibuprofen, acetaminophen, sumatriptan or eletriptan (avoid long-acting triptans), prednisone, and subQ lidocaine. Because of the low levels of sumatriptan/eletriptan in breastmilk, amounts ingested by the infant are small. It also has poor oral bioavailability, further decreasing exposure to the drug. Some authors have suggested that withholding for 8 hours after a single subcutaneous injection would virtually eliminate infant exposure to the drug. The ostomy care nurse recommends withholding for 12 hours after a dose. Withholding might be helpful in extreme cases, such as in the mother of a , but sumatriptan would not be expected to cause any adverse effects in most breastfed infants. documented in this encounter [facility] 01-10-2024 History of Presen t illness Narrative Images from the original note were not included. Headache Center - Follow up Virtual Visit Patient's headache clinic evaluation was scheduled as a virtual visit using the following platform Paulo De La Cruz was identified by name and and consented to the video evaluation and its limitations. Based on this evaluation it may be necessary for them to schedule a follow up evaluation with me or other neurologists for formal physical examination and if necessary, other studies. I have communicated my name and active licensure. The patient's identity and physical location were verified at the time of this visit. Either the patient or their legal floor representative has been informed of the risks and benefits of -- and alternatives to -- treatment through a remote evaluation and consents to proceed with the evaluation remotely. Accompanied by: Self Primary Problem List: ACTIVE PROBLEM LIST Tia (Transient Ischemic Attack) Pots (Postural Orthostatic Tachycardia Syndrome) Hypertension in , Preeclampsia, Delivered Chief Complaint: headache follow-up LV: 10/25/23 Dr. Damon Impression and Plan from last visit: Diagnoses and all orders for this visit: Migraine with aura and without status migrainosus, not intractable - CONSULT TO NEUROLOGY - PROVIDER ORDERED FOLLOW UP; Future - metoclopramide HCl (REGLAN) 5 mg tablet; Take 1-2 tablets by mouth once daily as needed (migraine). Pt reports that she has lost babies in the past due to miscarriages as well as a stillborn baby. She is appropriately highly reluctant to start new medication Metoclopramide 5 mg has worked well on 2 occasions, so she is ok to continue this as her primary NANCE rescue agent. She can follow-up with us after delivery to discuss preventative migraine options. No new meds today. Interval Headache History: Clarisa De La Cruz is a 33 year old year old female, with a history of TIA and POTS following up today virtually for headache follow-up. Since the last visit, the patient states that her headaches have improved since giving at the end of November. Baby was delivered 5 weeks early due to preeclampsia, she is currently . Headache 1 Number of migraine headache days/month: 8 Number of headache free days/month: 20 Days missed from work or school in the last month: 2 days Preventative: none Abortive: Metoclopramide 5 mg PAST MEDICAL HISTORY 07/2018: Anemia No date: Arachnoid cyst 07/01/2023: History of intrauterine in previous 01/2021: Hx of preeclampsia, prior , currently Comment: Around 32weeks 07/01/2023: Left lower quadrant abdominal pain Comment: Reports random sharp pain to left side. Likely round ligament pain. To notify if persistent or worsening. 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 Reviewed likely the cause of her bleeding and that it likely resolved. Plans for NT scan and will confirm. No further bleeding. PAST SURGICAL HISTORY 2021: DELIVERY ONLY 11/30/2023: DELIVERY ONLY Comment: LTCS 07/17/2018: D AND C Comment: FOr retained POC 07/2018: EXCIS UTERINE FIBROID,VAG APPRCH No date: PORT Comment: Insertion & removal x 2 ALLERGIES Allergen Reactions Adhesive Tape-Silic* Rash Tegaderm dressing Latex, Natural Rubb* Hives, Rash Nifedipine Rash Adhesive Tape (Isabel* Rash Tegaderm Latex Rash Sulfa (Sulfonamide * Rash Venom-Honey Bee Swelling Current Medications: labetalol (TRANDATE) 300 mg tablet Take 1 tablet by mouth three times a day. (Patient taking differently: Take 200 mg by mouth two times a day.) PNV no.95/ferrous fum/folic ac ( ORAL) Take by mouth. loratadine (CLARITIN) 10 mg tablet Take 1 tablet by mouth once daily as needed (for allergy symptoms.). I have reviewed the Robbie Status Assessment responses and discussed these with the patient: yes Silvestre Mina APRN.CHECK WEIGHER HEADACHE SCORES: 10/20/2023 01/10/2024 Headache Questions ID Migraine Screener: 1 (Negative) ER visits in the last year: 8 ER visits since last office visit: 0 Hospital stays in the last year: 1 Hospital stays since last office visit 0 Limited ADLs in the last month: 15 8 Days missed from work or school in the last month: 3 2 Days headache pain free in the last month: 10 20 Days per month with ALL of the following symptoms - decreased productivity, light sensitivity and nausea: 0 8 Initial improvement of headache after botox injection at last visit: Not applicable, I did not have a botox injection at my last visit PRN medication usage in the last month: 8 6 Patient impression of improvement since last visit: Minimally improved 10/20/2023 01/10/2024 HIT-6 HIT-6 70 (Severe impact) 68 (Severe impact) 10/20/2023 01/10/2024 RENÉ - 2/7 SCORES RENÉ-2 Score 0 1 01/10/2024 Migraine Specific QOL - Higher scores indicate better HRQL Role Function-Restrictive Transformed Score (range: 0-100) 37.14 Role Function-Preventive Transformed Score (range: 0-100) 40 Emotional Function Transformed Score (range: 0-100) 40 07/28/2023 10/20/2023 01/10/2024 PHQ-9 Score 1 2 1 Studies to Review: No MRI Head/Brain - Last 2 Impressions MRI BRAIN WO IVCON Exam End: 04/24/2023 12:51 AM (Final result) Impression: IMPRESSION: No evidence of acute infarct or mass effect. BRAIN WO IVCON Collected: 01/27/2021 8:02 PM (Final result) MRA Head and/or Neck - Last 2 Impressions MRA BRAIN WO/W IVCON Collected: 01/27/2021 8:02 PM (Final result) MRA BRAIN WO/W IVCON Collected: 01/27/2021 8:02 PM (Final result) MRI Cervical Spine - Last 2 Impressions No resulted procedures found. MRI Lumbar Spine - Last 2 Impressions No resulted procedures found. MRI Thoracic Spine - Last 2 Impressions No resulted procedures found. MRI Spine - Last 2 Impressions No resulted procedures found. CT Head/Brain - Last 2 Impressions No resulted procedures found. CTA Head and/or Neck - Last 2 No resulted procedures found. Labs to Review: No New Health Issues: No New Family History: No Review of Systems: Review of system: unchanged from the previous visit (sleep patterns, mood, energy, appetite, stress, exercising). Physical Examination: Vital Signs: [facility] 03/27/2023 General: well appearing, in no acute distress, alert Pain Behaviors: no pain behaviors observed Neurological: Mental Status: Alert and oriented to person, place and time. Affect is normal and appropriate. Speech is spontaneous and fluent without dysarthria, normal in rate, volume and articulation, and clear, coherent, and relevant. 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 Attention span and concentration are excellent. HEENT: Head is normocephalic and features were symmetric. Musculoskeletal: Patient able to sit up right in chair for entirety of visit. Cranial Nerves: III, IV, -EOMI: full. VII-face is symmetric without evidence of weakness. VIII-hearing intact. IMPRESSION: Migraine with aura and without status migrainosus, not intractable Clarisa De La Cruz is a 33 year old year old female, with a history of TIA and POTS who presents with episodic migraines. Her neurological examination is essentially normal at this visit. Her headaches have improved since delivery, we will re-evaluate her headaches once she is no longer to determine if prophylactic medication is needed at that time. Patient verbalized understanding and agreed to treatment plan. PLAN: -/ handout provided -follow up 6 months HEADACHE MANAGEMENT: (You are the primary guardian of your health and headache. Keep track of all medications: This includes the reason for use, side effects and benefits.) MEDICATION TREATMENT: Medications to Start Taking None Instructed patient about medications. Discussed effects of medications on . Written educational materials given. Headache education was done. Discussed lifestyle modification including increased oral hydration, decreased caffeine, exercise and stress management. Discussed treatment options including preventive and acute medications, natural supplements, and infusion therapy. Discussed medication overuse headache and to limit use of acute treatments to no more than 2 days/week or 10 days/month. Discussed medication side effects, adverse reactions and drug interactions. Written educational materials and patient instructions outlining all of the above were given. RESEARCH: None at this time Follow-up: 6 months Level of Service: Virtual Visit 20 minutes Silvestre Mina APRN.CHECK WEIGHER Headache Section [facility] January 10, 2024 documented in this encounter [facility] 01-02-2024 History of Presen t illness Narrative EARLY VISIT Clarisa De La Cruz is a 33 year old here for 4 week visit. C/o intermittent Dysuria- reports she will feel like she has UTI then symptoms resolve. Pt denies fever. Pt reports bleeding has slowed, now just spotting. Delivery Summary: C/S 11/30/2023 F Adeline ROS: General: Denies any fever or chills Hypertension Screening: Headache? No. Visual Changes? No Epigastric Pain? No Increased Swelling? No Taking any BP medications at home? Yes If applicable, monitoring BP at home? (If Yes, include results) Yes / 120's/70's Mood: normal Depression: denies symptoms of depression. OB Depression and Anxiety Screening- This Encounter (since 01/01/2024) Over the past 2 weeks have you felt down, depressed, or hopeless? Negative Over the past two weeks, have you felt little interest or pleasure in doing things? Negative Feeling nervous, anxious or on edge 0-Not at all Not being able to stop or control worrying 0-Not al all Anxiety Pre-Screening Total (If >/= 3 additional questions will be reviewed) 0 Feeding: Breast feeding problems: None Bladder: burning with urination Bowel symptoms: Negative for abdominal discomfort, blood in stools or black stools and change in bowel habits Abdomen: She reports no incisional redness, tenderness, erythema Bleeding: light flow , heavy flow Pad change every 2 hours Bottom and Perineum: No issues Sleep: no sleep concerns, feels rested [place] since delivery: Not resumed Emotional support: Yes Exercise: N/A Other issues: None PHYSICAL EXAMINATION: BP 136/86 Wt 81.6 kg (180 lb) LMP 03/27/2023 Yes BMI 27.78 kg/m General: pleasant,female in no apparent distress, A&O x 3. Skin warm and intact. Breast: Deferred Abdomen: Deferred /Incision: No incisional redness, swelling, or drainage Pelvic: Deferred Bimanual: Deferred ASSESSMENT AND PLAN: 33 year old status post CS with normal course. Contraception plan: not applicable. Reinforced 6-week pelvic rest. Encouraged condom usage should patient deviate. Education: resources provided - see MA/RN note Urine Dip- trace blood, will send culture today. Advised to increase PO fluids and can started OTC AZO I spent a total of 20 minutes on the date of the service which included preparing to see the patient, [id number] patient care, completing clinical documentation, obtaining and/or reviewing separately obtained history, performing a medically appropriate examination, counseling and educating the patient/family/caregiver, and ordering medications, tests, or procedures. Follow up: Return to Clinic for 6 week visit and as needed Jen Murphy MD documented in this encounter [facility] 12-09-2023 Telephone encounter Note Orders signed. It can be common for burning S/P meza catheter placement as well! Rosalinda Bob APRN.CNM [facility] Work Phone: 12-09-2023 Miscellaneous Notes Orders signed. It can be common for burning S/P emza catheter placement as well! Rosalinda Bob APRN.CNM Patient delivered via C/S on 11/29. UA and urine culture orders pending. Delmy Caballero RN documented in this encounter [facility] 12-09-2023 Telephone encounter Note Patient delivered via C/S on 11/29. UA and urine culture orders pending. Delmy Caballero RN [facility] 12-05-2023 History of Presen t illness Narrative EARLY VISIT Clarisa De La Cruz is a 33 year old here for 5 days visit. Delivery Summary: C/S by RR on 11/30/2023 Preeclampsia, Breech ROS: General: Denies any fever or chills Hypertension Screenin Headache? Yes. Was it successfully treated with Tylenol? somewhat Visual Changes? No Epigastric Pain? No Increased Swelling? No Taking any BP medications at home? Yes - Labetolol 300mg daily and Procardia XL 30mg as needed If applicable, monitoring BP at home? (If Yes, include results) Yes / 136/82 Mood: normal Depression: denies symptoms of depression. OB Depression and Anxiety Screening- This Encounter (since 12/04/2023) Over the past 2 weeks have you felt down, depressed, or hopeless? Negative Over the past two weeks, have you felt little interest or pleasure in doing things? Negative Feeling nervous, anxious or on edge 1-Several days Not being able to stop or control worrying 0-Not al all Anxiety Pre-Screening Total (If >/= 3 additional questions will be reviewed) 1 Feeding: Breast feeding/pumping problems: None Bladder: No dysuria, gross hematuria, urinary frequency, urinary urgency, or incontinence Bowel symptoms: Negative for abdominal discomfort, blood in stools or black stools Abdomen: She reports no incisional redness, tenderness, erythema - some spots that feel like tugging Bleeding: light flow Bottom and Perineum: No issues Sleep: no sleep concerns, feels rested [place] since delivery: Not resumed Emotional support: Yes Exercise: N/A Other issues: None PHYSICAL EXAMINATION: BP 138/86 Wt 86.2 kg (190 lb) LMP 03/27/2023 Yes BMI 29.32 kg/m General: pleasant,female in no apparent distress, A&O x 3. Skin warm and intact. Breast: Deferred Abdomen: soft, non-tender, and no masses /Incision: No incisional redness, swelling, or drainage Pelvic: Deferred Bimanual: Deferred ASSESSMENT AND PLAN: 33 year old status post CS with normal course. Contraception plan: none. Reinforced 6-week pelvic rest. Encouraged condom usage should patient deviate. Education: resources provided - see MA/RN note Follow up: Return to Clinic for 6 week visit and as needed Geovanna Avilez APRN.CNM documented in this encounter [facility] 12-02-2023 Telephone encounter Note L&D aware of RR instructions and PP appt scheduled for Tuesday. Valerie Combs RN [facility] 12-02-2023 Miscellaneous Notes L&D aware of RR instructions and PP appt scheduled for Tuesday. Valerie Combs RN Patient requests d/c today. Needs f/u on Tuesday. Will monitor BP at home. rxs sent for d/c home. Tabby Krueger MD Please file Procardia and labetalol rx. Pharmacy updated to [facility] Retail pharmacy. Batool Rogel RN documented in this encounter [facility] 12-02-2023 Telephone encounter Note Patient requests d/c today. Needs f/u on Tuesday. Will monitor BP at home. rxs sent for d/c home. Tabby Krueger MD [facility] 12-02-2023 Telephone encounter Note Please file Procardia and labetalol rx. Pharmacy updated to [facility] Retail pharmacy. Batool Rogel RN [facility] 12-01-2023 History of Presen t illness Narrative Patient delivered via by Dr. Krueger on 11/30/23 at [facility]. See OB history. Batool Rogel RN documented in this encounter [facility] 11-30-2023 Telephone encounter Note Called patient and she was informed to go to L&D. Called Francine at [facility] and informed her that patient was coming. Copy of Episode faxed to L&D [facility] 11-30-2023 Miscellaneous Notes Called patient and she was informed to go to L&D. Called Francine at [facility] and informed her that patient was coming. Copy of Episode faxed to L&D To L&D for evaluation today please. Tabby Krueger MD I called patient. She is 35w3d She is having having headaches-rates a 5-6 on pain [id number] worse thatn when seen 2 days ago. Taking headache cocktail-Benadryl and Reglan- gets relief most of time. Denies any visual disturbances, epigastric pain. Baby active. Was seen 11/27 and was 114/77 in office but got a bad headache in evening and BP150/96. History of pre Eclampsia in prior , History of intrauterine in previous -BPP, alternating NST. Twice weekly testing. CHronic hypertension affecting Labetalol 300mg PO TIDReviewed Pre-E warning signs.Next appt 12/01 for NST - Dr Song's schedule. Please advise documented in this encounter [facility] 11-30-2023 Telephone encounter Note To L&D for evaluation today please. Tabby Krueger MD [facility] 11-30-2023 Telephone encounter Note I called patient. She is 35w3d She is having having headaches-rates a 5-6 on pain [id number] worse thatn when seen 2 days ago. Taking headache cocktail-Benadryl and Reglan- gets relief most of time. Denies any visual disturbances, epigastric pain. Baby active. Was seen 11/27 and was 114/77 in office but got a bad headache in evening and BP150/96. History of pre Eclampsia in prior , History of intrauterine in previous -BPP, alternating NST. Twice weekly testing. CHronic hypertension affecting Labetalol 300mg PO TIDReviewed Pre-E warning signs.Next appt 12/01 for NST - Dr Song's schedule. Please advise [facility] 11-28-2023 Note Indication Evaluation of well-being Chronic hypertension on labetalol , IUFD 24 weeks Impression - Single, live, intrauterine . - The amniotic fluid volume is normal amount with an MVP of 6.9 cm and an SANDRA of 16 cm. - The placenta is posterior, fundal. - BPP 12/14. Recommendations Continue planned testing Maternal Assessment Height 173 cm Height (ft) 5 ft Height (in) 8 in Physical Exam Initial weight (lb) 180 lb Initial BMI 27.37 kg/m Maternal assessment other: 4 Para 1 Growth Overview Exam date GA BPD (mm) HC (mm) AC (mm) FL (mm) HL (mm) EFW (g) 08/16/2023 20w 2d 41 2% 164.7 18% 159.1 69% 32.2 55% 34 90% 347 47% 10/11/2023 28w 2d 62.2 <1% 252 19% 256 84% 55.3 85% 1346 70% 11/07/2023 32w 1d 70.4 <1% 279.4 10% 271.1 22% 61.6 55% 1743 18% Method Transabdominal ultrasound examination [place] . Number of fetuses: 1 Dating LMP on: 03/27/2023 GA by LMP 35 w + 1 d NIELS by LMP: 01/01/2024 GA by prior assessment 35 w + 1 d NIELS by prior assessment: 01/01/2024 Assigned: based on stated NIELS, selected on 11/21/2023 Assigned GA 35 w + 1 d Assigned NIELS: 01/01/2024 General Evaluation Cardiac activity present. FHR 149 bpm. movements: present. Presentation: breech Placenta: Placental site: posterior, fundal Umbilical cord: Cord vessels: 3 vessel cord Amniotic Fluid Assessment Amount of AF: normal amount MVP 6.9 cm. SANDRA 16.0 cm. Q1 6.9 cm, Q2 5.3 cm, Q3 2.0 cm, Q4 1.7 cm Biophysical Profile 2: breathing movements 2: Gross body movements 2: tone 2: Amniotic fluid volume 8/8 Biophysical profile score Performed By: Ester Zapien, MACKENZIE, RVT Read By: Jasmina Collazo M.D. [facility] 11-28-2023 Progress note Formatting of t his note might be different from the original. KIERSTEN-S: Clarisa De La Cruz is a 33 year old female who presents at 35w1d with NIELS:01/01/2024, by Last Menstrual Period for a routine visit. Denies headache, visual changes, chest pain, shortness of breath, vaginal bleeding, leakage of fluid, or dysuria. Feeling well, no complaints. Last 3 days had a few elevated BP 147/93 but normal today. Denies any headaches, visual changes, RUQ pain or other concerns O: See flow sheet Gen: No apparent distress Abd: Gravid, nontender S=D, 22lb TWG, cephalic ASSESSMENT/PLAN: 1. Encounter for supervision of high risk in third trimester, antepartum -Growth US next visit with BPP, alternating NST. Twice weekly testing. 2. 35 weeks gestation of 3. History of intrauterine in previous -BPP, alternating NST. Twice weekly testing. 4. Chronic hypertension affecting -Labetalol 300mg PO TID -BP slightly elevated at home but not really checking regularly, reviewed keeping log and to call with reading of BP in a few days. If 160/110 to call office or L&D if after hours -Preeclampsia signs reviewed. 5. History of section -C/S 12/21 with DM 6. History of pre-eclampsia -ASA 81mg PO once daily 7. POTS (postural orthostatic tachycardia syndrome) 8. TIA (transient ischemic attack) -After delivery for medication - PTL precautions reviewed and when to call - RTO in 1 week Geovanna Avilez APRN.CNM [facility] 11-28-2023 Miscellaneous Notes KIERSTEN-S: Clarisa De La Cruz is a 33 year old female who presents at 35w1d with NIELS:01/01/2024, by Last Menstrual Period for a routine visit. Denies headache, visual changes, chest pain, shortness of breath, vaginal bleeding, leakage of fluid, or dysuria. Feeling well, no complaints. Last 3 days had a few elevated BP 147/93 but normal today. Denies any headaches, visual changes, RUQ pain or other concerns O: See flow sheet Gen: No apparent distress Abd: Gravid, nontender S=D, 22lb TWG, cephalic ASSESSMENT/PLAN: 1. Encounter for supervision of high risk in third trimester, antepartum -Growth US next visit with BPP, alternating NST. Twice weekly testing. 2. 35 weeks gestation of 3. History of intrauterine in previous -BPP, alternating NST. Twice weekly testing. 4. Chronic hypertension affecting -Labetalol 300mg PO TID -BP slightly elevated at home but not really checking regularly, reviewed keeping log and to call with reading of BP in a few days. If 160/110 to call office or L&D if after hours -Preeclampsia signs reviewed. 5. History of section -C/S 12/21 with DM 6. History of pre-eclampsia -ASA 81mg PO once daily 7. POTS (postural orthostatic tachycardia syndrome) 8. TIA (transient ischemic attack) -After delivery for medication - PTL precautions reviewed and when to call - RTO in 1 week Geovanna Avilez APRN.CNM documented in this encounter [facility] 11-28-2023 Instructions Haley Barrera MA - 11/28/2023 10:44 AM EDT SEQUENTIAL SCREENINGS The [facility] offers sequential screenings for women who are interested in screenings for chromosomal abnormalities and certain defects during a . The sequential screen combines ultrasound and blood tests to determine the risk of chromosomal abnormalities, including Down's Syndrome (Trisomy 21) and Trisomy 18, as well as open neural tube defects including spina bifida. Ultrasound examination is performed between 11 weeks and 13 weeks gestational age. Blood tests are drawn after the ultrasound and again later in the between 15 and 21 weeks gestational age. Please let your physician know if you are interested in this testing. It will require an appointment with our orthotics prosthetics technician. This is not an ultrasound performed by a physician in our office during a routine visit. SIGNS AND SYMPTOMS OF LABOR 1. Contractions every 10 minutes or more often 2. Clear, pink, or brownish fluid (water) leaking from vagina 3. Feeling that baby is pushing down, pressure 4. Low, dull backache 5. Cramps that feel like a period 6. Cramps with or without diarrhea If you notice any of the above symptoms, contact our office at [phone] and ask to speak with a nurse. After hours, you can call doctors registry at [phone] OR call [facility] at [phone] and ask to have the doctor wireless communications engineer paged. If you consider this an emergency, dial 01-07-9 or go to your nearest emergency department. NEED HELP? Are you dealing with a violent or abusive relationship? Are you a victim of rape or sexual assult? Call [facility] ([place]) 24 hour Crisis Hotline: 277.168.6353 or 681-412-6654. MANUAL Your Guide to a Healthy manual is now on-line. Visit [email or web address] to download your free copy documented in this encounter [facility] 11-25-2023 Progress note Formatting of t his note might be different from the original. NST ONLY [facility] 11-25-2023 History of Presen t illness Narrative NST SUMMARY PROVIDER ASSESSMENT AND INTERPRETATION Clarisa De La Cruz is a 33 year old female, , who is at 34w5d with an NIELS of 01/01/2024, by Last Menstrual Period dating method. Indications for NST: Chronic HTN and Other: h/o IUFD Baseline: 145 Variability: Moderate Accelerations: Present 15 X 15 Decelerations: None Contractions: TOCO: None Interpretation: Category I and Reactive SIGNATURE: Jen Murphy MD documented in this encounter [facility] 11-25-2023 Miscellaneous Notes NST ONLY documented in this encounter [facility] 11-25-2023 Instructions Anders AlvarezathTATUM lopez - 11/25/2023 9:22 AM EDT SEQUENTIAL SCREENINGS The [facility] offers sequential screenings for women who are interested in screenings for chromosomal abnormalities and certain defects during a . The sequential screen combines ultrasound and blood tests to determine the risk of chromosomal abnormalities, including Down's Syndrome (Trisomy 21) and Trisomy 18, as well as open neural tube defects including spina bifida. Ultrasound examination is performed between 11 weeks and 13 weeks gestational age. Blood tests are drawn after the ultrasound and again later in the between 15 and 21 weeks gestational age. Please let your physician know if you are interested in this testing. It will require an appointment with our orthotics prosthetics technician. This is not an ultrasound performed by a physician in our office during a routine visit. SIGNS AND SYMPTOMS OF LABOR 1. Contractions every 10 minutes or more often 2. Clear, pink, or brownish fluid (water) leaking from vagina 3. Feeling that baby is pushing down, pressure 4. Low, dull backache 5. Cramps that feel like a period 6. Cramps with or without diarrhea If you notice any of the above symptoms, contact our office at [phone] and ask to speak with a nurse. After hours, you can call doctors registry at [phone] OR call [facility] at [phone] and ask to have the doctor wireless communications engineer paged. If you consider this an emergency, dial or go to your nearest emergency department. NEED HELP? Are you dealing with a violent or abusive relationship? Are you a victim of rape or sexual assult? Call [facility] ([place]) 24 hour Crisis Hotline: 693.784.2631 or 413-390-7782. MANUAL Your Guide to a Healthy manual is now on-line. Visit [email or web address] to download your free copy documented in this encounter [facility] 11-21-2023 Note Indication Evaluation of well-being Chronic hypertension on labetalol , IUFD 24 weeks Impression REMOTE READ - Single, live, intrauterine . - The amniotic fluid volume is normal amount with an MVP of 6.5 cm and an SANDRA of 12.7 cm. - The placenta is posterior, fundal. - BPP 12/14. Recommendations Continue planned testing Maternal Assessment Height 173 cm Height (ft) 5 ft Height (in) 8 in Physical Exam Initial weight (lb) 180 lb Initial BMI 27.37 kg/m Maternal assessment other: 4 Para 1 Growth Overview Exam date GA BPD (mm) HC (mm) AC (mm) FL (mm) HL (mm) EFW (g) 08/16/2023 20w 2d 41 2% 164.7 18% 159.1 69% 32.2 55% 34 90% 347 47% 10/11/2023 28w 2d 62.2 <1% 252 19% 256 84% 55.3 85% 1346 70% 11/07/2023 32w 1d 70.4 <1% 279.4 10% 271.1 22% 61.6 55% 1743 18% Method Transabdominal ultrasound examination [place] . Number of fetuses: 1 Dating LMP on: 03/27/2023 GA by LMP 34 w + 1 d NIELS by LMP: 01/01/2024 GA by prior assessment 34 w + 1 d NIELS by prior assessment: 01/01/2024 Assigned: based on stated NIELS, selected on 11/21/2023 Assigned GA 34 w + 1 d Assigned NIELS: 01/01/2024 General Evaluation Cardiac activity present. FHR 142 bpm. movements: present. Presentation: breech Placenta: Placental site: posterior, fundal Umbilical cord: Cord vessels: 3 vessel cord Amniotic Fluid Assessment Amount of AF: normal amount MVP 6.5 cm. SANDRA 12.7 cm. Q1 3.3 cm, Q2 6.5 cm, Q3 0.0 cm, Q4 2.9 cm Biophysical Profile 2: breathing movements 2: Gross body movements 2: tone 2: Amniotic fluid volume 12/14 Biophysical profile score Performed By: Ester Zapien, MACKENZIE, RVT Read By: Jasmina Collazo M.D. [facility] 11-21-2023 Progress note Formatting of t his note might be different from the original. S: Clarisa De La Cruz is a 33 year old female who presents at 01/01/2024, by Last Menstrual Period for a routine visit. Denies headache, visual changes, chest pain, shortness of breath, vaginal bleeding, leakage of fluid, or dysuria. Feeling well, no complaints. Good movement, No contractions. BP at home good. O: See flow sheet Gen: No apparent distress Abd: Gravid, nontender BPP 12/14 SANDRA 12 breech ASSESSMENT/PLAN: 1. 34 weeks gestation of - ICD9: V22.2, ICD10: Z3A.34 (primary diagnosis) - URINE OB DIP B/O 2. High-risk in third trimester - ICD9: V23.9, ICD10: O09.93 - URINE OB DIP B/O 3. Chronic hypertension complicating or reason for care during childbirth - ICD9: 642.01, ICD10: O10.92 - URINE OB DIP B/O Delmy Brasher MD [facility] 11-21-2023 Miscellaneous Notes S: Clarisa De La Cruz is a 33 year old female who presents at 01/01/2024, by Last Menstrual Period for a routine visit. Denies headache, visual changes, chest pain, shortness of breath, vaginal bleeding, leakage of fluid, or dysuria. Feeling well, no complaints. Good movement, No contractions. BP at home good. O: See flow sheet Gen: No apparent distress Abd: Gravid, nontender BPP 12/14 SANDRA 12 breech ASSESSMENT/PLAN: 1. 34 weeks gestation of - ICD9: V22.2, ICD10: Z3A.34 (primary diagnosis) - URINE OB DIP B/O 2. High-risk in third trimester - ICD9: V23.9, ICD10: O09.93 - URINE OB DIP B/O 3. Chronic hypertension complicating or reason for care during childbirth - ICD9: 642.01, ICD10: O10.92 - URINE OB DIP B/O Delmy Brasher MD documented in this encounter [facility] 11-21-2023 Instructions Soraida BolanosTATUM - 11/21/2023 1:15 PM EDT SEQUENTIAL SCREENINGS The [facility] offers sequential screenings for women who are interested in screenings for chromosomal abnormalities and certain defects during a . The sequential screen combines ultrasound and blood tests to determine the risk of chromosomal abnormalities, including Down's Syndrome (Trisomy 21) and Trisomy 18, as well as open neural tube defects including spina bifida. Ultrasound examination is performed between 11 weeks and 13 weeks gestational age. Blood tests are drawn after the ultrasound and again later in the between 15 and 21 weeks gestational age. Please let your physician know if you are interested in this testing. It will require an appointment with our orthotics prosthetics technician. This is not an ultrasound performed by a physician in our office during a routine visit. SIGNS AND SYMPTOMS OF LABOR 1. Contractions every 10 minutes or more often 2. Clear, pink, or brownish fluid (water) leaking from vagina 3. Feeling that baby is pushing down, pressure 4. Low, dull backache 5. Cramps that feel like a period 6. Cramps with or without diarrhea If you notice any of the above symptoms, contact our office at [phone] and ask to speak with a nurse. After hours, you can call doctors registry at [phone] OR call [facility] at [phone] and ask to have the doctor wireless communications engineer paged. If you consider this an emergency, dial 9--1 or go to your nearest emergency department. NEED HELP? Are you dealing with a violent or abusive relationship? Are you a victim of rape or sexual assult? Call [facility] ([place]) 24 hour Crisis Hotline: 258.384.5919 or 400-364-6032. MANUAL Your Guide to a Healthy manual is now on-line. Visit [email or web address] to download your free copy documented in this encounter [facility] 11-18-2023 History of Presen t illness Narrative NST SUMMARY PROVIDER ASSESSMENT AND INTERPRETATION Clarisa De La Cruz is a 33 year old female, , who is at 33w5d with an NIELS of 01/01/2024, by Last Menstrual Period dating method. Indications for NST: Chronic HTN Baseline: 135 Variability: Moderate Accelerations: Present 15 X 15 Decelerations: None Contractions: TOCO: None Interpretation: Reactive SIGNATURE: Geovanna Avilez APRN.CNM documented in this encounter [facility] 11-18-2023 Instructions Oswald Blandon MA - 11/18/2023 9:37 AM EDT SEQUENTIAL SCREENINGS The [facility] offers sequential screenings for women who are interested in screenings for chromosomal abnormalities and certain defects during a . The sequential screen combines ultrasound and blood tests to determine the risk of chromosomal abnormalities, including Down's Syndrome (Trisomy 21) and Trisomy 18, as well as open neural tube defects including spina bifida. Ultrasound examination is performed between 11 weeks and 13 weeks gestational age. Blood tests are drawn after the ultrasound and again later in the between 15 and 21 weeks gestational age. Please let your physician know if you are interested in this testing. It will require an appointment with our orthotics prosthetics technician. This is not an ultrasound performed by a physician in our office during a routine visit. SIGNS AND SYMPTOMS OF LABOR 1. Contractions every 10 minutes or more often 2. Clear, pink, or brownish fluid (water) leaking from vagina 3. Feeling that baby is pushing down, pressure 4. Low, dull backache 5. Cramps that feel like a period 6. Cramps with or without diarrhea If you notice any of the above symptoms, contact our office at [phone] and ask to speak with a nurse. After hours, you can call [facility] at [phone] OR call [facility] at [phone] and ask to have the doctor wireless communications engineer paged. If you consider this an emergency, dial 9-9-4 or go to your nearest emergency department. NEED HELP? Are you dealing with a violent or abusive relationship? Are you a victim of rape or sexual assult? Call [facility] ([place]) 24 hour Crisis Hotline: 189.270.3880 or 790-303-4369. MANUAL Your Guide to a Healthy manual is now on-line. Visit [email or web address] to download your free copy documented in this encounter [facility] 11-15-2023 Note Indication Evaluation of well-being Chronic hypertension on labetalol , IUFD 24 weeks Impression REMOTE READ - Single, live, intrauterine . - The amniotic fluid volume is normal amount with an MVP of 4.1 cm and an SANDRA of 12.6 cm. - The placenta is posterior, fundal. - BPP 8. Recommendations Continue planned testing Maternal Assessment Height 173 cm Height (ft) 5 ft Height (in) 8 in Physical Exam Initial weight (lb) 180 lb Initial BMI 27.37 kg/m Growth Overview Exam date GA BPD (mm) HC (mm) AC (mm) FL (mm) HL (mm) EFW (g) 08/16/2023 20w 2d 41 2% 164.7 18% 159.1 69% 32.2 55% 34 90% 347 47% 10/11/2023 28w 2d 62.2 <1% 252 19% 256 84% 55.3 85% 1346 70% 11/07/2023 32w 1d 70.4 <1% 279.4 10% 271.1 22% 61.6 55% 1743 18% Method Transabdominal ultrasound examination [place] . Number of fetuses: 1 Dating LMP on: 03/27/2023 GA by LMP 33 w + 2 d NIELS by LMP: 01/01/2024 GA by prior assessment 33 w + 2 d NIELS by prior assessment: 01/01/2024 Assigned: based on stated NIELS, selected on 11/07/2023 Assigned GA 33 w + 2 d Assigned NIELS: 01/01/2024 General Evaluation Cardiac activity present. FHR 149 bpm. movements: present. Presentation: complete breech Placenta: Placental site: posterior, fundal Umbilical cord: Cord vessels: 3 vessel cord Amniotic Fluid Assessment Amount of AF: normal amount MVP 4.1 cm. SANDRA 12.6 cm. Q1 1.6 cm, Q2 3.9 cm, Q3 4.1 cm, Q4 3.0 cm Biophysical Profile 2: breathing movements 2: Gross body movements 2: tone 2: Amniotic fluid volume 12/14 Biophysical profile score Performed By: Adrianna Stallworth RDMS Read By: Jasmina Collazo M.D. [facility] 11-15-2023 Progress note Formatting of t his note might be different from the original. KJ - VB No. LOF No. CTXS No. Movement: present. Other c/o: No. Medication list reviewed. Physical Exam See Flow Sheet Gen: no accute distress, well appearing A/P 33w2d Estimated Date of Delivery: 01/01/24 MOD - repeat scheduled H/o IUFD - 2x/wk testing Chtn - continue labetalol & aspirin PTL precautions reviewed, Kick counts reviewed Maximilian Valdovinos MD [facility] 11-15-2023 Miscellaneous Notes KJ - VB No. LOF No. CTXS No. Movement: present. Other c/o: No. Medication list reviewed. Physical Exam See Flow Sheet Gen: no accute distress, well appearing A/P 33w2d Estimated Date of Delivery: 01/01/24 MOD - repeat scheduled H/o IUFD - 2x/wk testing Chtn - continue labetalol & aspirin PTL precautions reviewed, Kick counts reviewed Maximilian Valdovinos MD documented in this encounter [facility] 11-15-2023 Instructions Soraida Bolanos MA - 11/15/2023 1:25 PM EDT SEQUENTIAL SCREENINGS The [facility] offers sequential screenings for women who are interested in screenings for chromosomal abnormalities and certain defects during a . The sequential screen combines ultrasound and blood tests to determine the risk of chromosomal abnormalities, including Down's Syndrome (Trisomy 21) and Trisomy 18, as well as open neural tube defects including spina bifida. Ultrasound examination is performed between 11 weeks and 13 weeks gestational age. Blood tests are drawn after the ultrasound and again later in the between 15 and 21 weeks gestational age. Please let your physician know if you are interested in this testing. It will require an appointment with our orthotics prosthetics technician. This is not an ultrasound performed by a physician in our office during a routine visit. SIGNS AND SYMPTOMS OF LABOR 1. Contractions every 10 minutes or more often 2. Clear, pink, or brownish fluid (water) leaking from vagina 3. Feeling that baby is pushing down, pressure 4. Low, dull backache 5. Cramps that feel like a period 6. Cramps with or without diarrhea If you notice any of the above symptoms, contact our office at [phone] and ask to speak with a nurse. After hours, you can call doctors registry at [phone] OR call [facility] at [phone] and ask to have the doctor wireless communications engineer paged. If you consider this an emergency, dial 9-1-4 or go to your nearest emergency department. NEED HELP? Are you dealing with a violent or abusive relationship? Are you a victim of rape or sexual assult? Call [facility] ([place]) 24 hour Crisis Hotline: 763.822.1890 or 262-481-3009. MANUAL Your Guide to a Healthy manual is now on-line. Visit [email or web address] to download your free copy documented in this encounter [facility] 11-11-2023 History of Presen t illness Narrative NST SUMMARY PROVIDER ASSESSMENT AND INTERPRETATION Clarisa De La Cruz is a 33 year old female, , who is at 32w5d with an NIELS of 01/01/2024, by Last Menstrual Period dating method. Indications for NST: Chronic HTN and Previous IUFD Baseline: 135 Variability: Moderate Accelerations: Present 15 X 15 Decelerations: None Contractions: TOCO: None Interpretation: Reactive SIGNATURE: Maximilian Valdovinos MD documented in this encounter [facility] 11-11-2023 Progress note Formatting of t his note might be different from the original. KJ - VB No. LOF No. CTXS No. Movement: present. Other c/o: No. Medication list reviewed. Physical Exam See Flow Sheet Gen: no accute distress, well appearing Abd: soft, nontender, gravid A/P 29w2d Estimated Date of Delivery: 01/01/24 MOD - repeat scheduled H/o IUFD - 2x/wk testing Chtn - continue labetalol & aspirin PTL precautions reviewed, Kick counts reviewed. Maximilian Valdovinos MD [facility] 11-11-2023 Miscellaneous Notes KJ - VB No. LOF No. CTXS No. Movement: present. Other c/o: No. Medication list reviewed. Physical Exam See Flow Sheet Gen: no accute distress, well appearing Abd: soft, nontender, gravid A/P 29w2d Estimated Date of Delivery: 01/01/24 MOD - repeat scheduled H/o IUFD - 2x/wk testing Chtn - continue labetalol & aspirin PTL precautions reviewed, Kick counts reviewed. Maximilian Valdovinos MD documented in this encounter [facility] 11-07-2023 Note Indication Evaluation of growth, Evaluation of well-being Chronic hypertension, IUFD 24 weeks Impression REMOTE READ - Single, live, intrauterine . - The biometry is consistent with the assigned gestational dating. - The EFW is 1743 g, at the 18%. AC is at the 22%. - The amniotic fluid volume is normal amount with an MVP of 3.7 cm and an SANDRA of 11.7 cm - The placenta is posterior, fundal. - BPP 12/14. - No malformations visualized on a limited survey as detailed below. Recommendations Continue growth and surveillance as planned. Maternal Assessment Height 173 cm Height (ft) 5 ft Height (in) 8 in Physical Exam Initial weight (lb) 180 lb Initial BMI 27.37 kg/m Maternal assessment other: 4 Para 1 Method Transabdominal ultrasound examination [place] . Number of fetuses: 1 Dating GA by prior assessment 32 w + 1 d NIELS by prior assessment: 01/01/2024 Ultrasound examination on: 11/07/2023 GA by U/S based upon: AC, BPD, Femur, HC GA by U/S 30 w + 2 d NIELS by U/S: 01/14/2024 Assigned: based on stated NIELS, selected on 11/07/2023 Assigned GA 32 w + 1 d Assigned NIELS: 01/01/2024 General Evaluation Cardiac activity present. FHR 132 bpm. movements: present. Presentation: breech Placenta: Placental site: posterior, fundal Umbilical cord: Cord vessels: 3 vessel cord Amniotic fluid: Amount of AF: normal amount. MVP 3.7 cm. SANDRA 11.7 cm. Q1 2.9 cm, Q2 3.7 cm, Q3 2.5 cm, Q4 2.6 cm Biophysical Profile 2: breathing movements 2: Gross body movements 2: tone 2: Amniotic fluid volume 12/14 Biophysical profile score Growth Overview Exam date GA BPD (mm) HC (mm) AC (mm) FL (mm) HL (mm) EFW (g) 08/16/2023 20w 2d 41 2% 164.7 18% 159.1 69% 32.2 55% 34 90% 347 47% 10/11/2023 28w 2d 62.2 <1% 252 19% 256 84% 55.3 85% 1346 70% 11/07/2023 32w 1d 70.4 <1% 279.4 10% 271.1 22% 61.6 55% 1743 18% Biometry Standard BPD 70.4 mm 28w 2d <1% Hadlock OFD 103.6 mm 30w 4d 29% Nicolaides HC 279.4 mm 29w 6d 10% Eliecer AC 271.1 mm 31w 1d 22% Hadlock Femur 61.6 mm 31w 6d 55% Eliecer EFW 1,743 g 31w 0d 18% Hadlock EFW (lb) 3 lb EFW (oz) 13 oz EFW by: Kt (HC-AC-FL) Extended Wound/Ostomy Clinical Nurse Specialist 5.8 mm Extremities / Bony Struc FL / HC 0.22 Other Structures FHR 132 bpm Anatomy Lateral ventricles: normal Cavum septi pellucidi: normal Cerebellum: normal Cisterna magna: normal 4-chamber view: suboptimal RVOT view: suboptimal LVOT view: normal 3-vessel view: normal Heart / Thorax Situs: situs solitus (normal) Diaphragm: normal Stomach: normal Kidneys: normal Bladder: normal Cervical spine: normal Thoracic spine: normal Lumbar spine: normal Sacral spine: normal Gender: Unspecified Wants to know sex: no Performed By: Ester Zapien RDMS, RVT Read By: Sofia Hill M.D. [facility] 11-07-2023 History of Presen t illness Narrative DM- Pt doing well today. Denies Vaginal Bleeding, Leaking fluid, or contractions. Pt reports good movement. BPP today 12/14, growth 18%, fluid 12cm (unofficial). Continue ASA, taking labetalol 300mg TID. No unusual headaches or other symptoms today. Pt is doing kick counts BID. Continue twice weekly testing. LARC form signed and declined. Has cs scheduled at 38 weeks. Jen Murphy MD documented in this encounter [facility] 11-07-2023 Instructions Haley Barrera MA - 11/07/2023 8:20 AM EDT SEQUENTIAL SCREENINGS The [facility] offers sequential screenings for women who are interested in screenings for chromosomal abnormalities and certain defects during a . The sequential screen combines ultrasound and blood tests to determine the risk of chromosomal abnormalities, including Down's Syndrome (Trisomy 21) and Trisomy 18, as well as open neural tube defects including spina bifida. Ultrasound examination is performed between 11 weeks and 13 weeks gestational age. Blood tests are drawn after the ultrasound and again later in the between 15 and 21 weeks gestational age. Please let your physician know if you are interested in this testing. It will require an appointment with our orthotics prosthetics technician. This is not an ultrasound performed by a physician in our office during a routine visit. SIGNS AND SYMPTOMS OF LABOR 1. Contractions every 10 minutes or more often 2. Clear, pink, or brownish fluid (water) leaking from vagina 3. Feeling that baby is pushing down, pressure 4. Low, dull backache 5. Cramps that feel like a period 6. Cramps with or without diarrhea If you notice any of the above symptoms, contact our office at [phone] and ask to speak with a nurse. After hours, you can call doctors registry at [phone] OR call [facility] at [phone] and ask to have the doctor wireless communications engineer paged. If you consider this an emergency, dial 8--5 or go to your nearest emergency department. NEED HELP? Are you dealing with a violent or abusive relationship? Are you a victim of rape or sexual assult? Call [facility] ([place]) 24 hour Crisis Hotline: 202.652.3874 or 618-496-4151. MANUAL Your Guide to a Healthy manual is now on-line. Visit [email or web address] to download your free copy documented in this encounter [facility] 11-04-2023 History of Presen t illness Narrative NST SUMMARY PROVIDER ASSESSMENT AND INTERPRETATION Clarisa De La Cruz is a 33 year old female, , who is at 31w5d with an NIELS of 01/01/2024, by Last Menstrual Period dating method. Indications for NST: Chronic HTN Baseline: 150 Variability: Moderate Accelerations: Present 15 X 15 Decelerations: None Contractions: TOCO: None Interpretation: Category I and Reactive SIGNATURE: Tabby Krueger MD documented in this encounter [facility] 11-04-2023 Progress note Formatting of t his note might be different from the original. RR- VB No. LOF No. CTXS No. Movement: present. Other c/o: Medication list reviewed. Physical Exam See Flow Sheet Abd: soft, nontender, gravid Ext: edema: Trace A/P 31w5d Estimated Date of Delivery: 01/01/24 .Chronic HTN, cont. ASA prophylaxis and antepartum testing, growth scan next week. BP stable on current meds Kick counts Plans repeat c/s unless spont. delivery before scheduled c/s Tabby Krueger M.D. [facility] 11-04-2023 Miscellaneous Notes RR- VB No. LOF No. CTXS No. Movement: present. Other c/o: Medication list reviewed. Physical Exam See Flow Sheet Abd: soft, nontender, gravid Ext: edema: Trace A/P 31w5d Estimated Date of Delivery: 01/01/24 .Chronic HTN, cont. ASA prophylaxis and antepartum testing, growth scan next week. BP stable on current meds Kick counts Plans repeat c/s unless spont. delivery before scheduled c/s Tabby Krueger M.D. documented in this encounter [facility] 11-04-2023 Instructions Анна Alvarez MA - 11/04/2023 10:30 AM EDT SEQUENTIAL SCREENINGS The [facility] offers sequential screenings for women who are interested in screenings for chromosomal abnormalities and certain defects during a . The sequential screen combines ultrasound and blood tests to determine the risk of chromosomal abnormalities, including Down's Syndrome (Trisomy 21) and Trisomy 18, as well as open neural tube defects including spina bifida. Ultrasound examination is performed between 11 weeks and 13 weeks gestational age. Blood tests are drawn after the ultrasound and again later in the between 15 and 21 weeks gestational age. Please let your physician know if you are interested in this testing. It will require an appointment with our orthotics prosthetics technician. This is not an ultrasound performed by a physician in our office during a routine visit. SIGNS AND SYMPTOMS OF LABOR 1. Contractions every 10 minutes or more often 2. Clear, pink, or brownish fluid (water) leaking from vagina 3. Feeling that baby is pushing down, pressure 4. Low, dull backache 5. Cramps that feel like a period 6. Cramps with or without diarrhea If you notice any of the above symptoms, contact our office at [phone] and ask to speak with a nurse. After hours, you can call doctors registry at [phone] OR call [facility] at [phone] and ask to have the doctor wireless communications engineer paged. If you consider this an emergency, dial 9-9 or go to your nearest emergency department. NEED HELP? Are you dealing with a violent or abusive relationship? Are you a victim of rape or sexual assult? Call [facility] ([place]) 24 hour Crisis Hotline: 119.794.9841 or 385-560-8079. MANUAL Your Guide to a Healthy manual is now on-line. Visit [email or web address] to download your free copy documented in this encounter [facility] 11-01-2023 Note Indication Evaluation of well-being TIA, Chronic hypertension, IUFD 24 weeks Impression REMOTE READ - Single, live, intrauterine . - The amniotic fluid volume is normal amount with an MVP of 5.8 cm and an SANDRA of 17.2 cm. - The placenta is posterior, fundal. - BPP 12/14. Recommendations - Weekly BPP alternating with NST q 3-4 days - Additional follow up as clinically indicated. Maternal Assessment Height 173 cm Height (ft) 5 ft Height (in) 8 in Physical Exam Initial weight (lb) 180 lb Initial BMI 27.37 kg/m Maternal assessment other: 4 Para 1 Growth Overview Exam date GA BPD (mm) HC (mm) AC (mm) FL (mm) HL (mm) EFW (g) 08/16/2023 20w 2d 41 2% 164.7 18% 159.1 69% 32.2 55% 34 90% 347 47% 10/11/2023 28w 2d 62.2 <1% 252 19% 256 84% 55.3 85% 1346 70% Method Transabdominal ultrasound examination [place] . Number of fetuses: 1 Dating GA by prior assessment 31 w + 2 d NIELS by prior assessment: 01/01/2024 Assigned: based on stated NIELS, selected on 10/25/2023 Assigned GA 31 w + 2 d Assigned NIELS: 01/01/2024 General Evaluation Cardiac activity present. FHR 146 bpm. movements: present. Presentation: breech Placenta: Placental site: posterior, fundal Umbilical cord: Cord vessels: 3 vessel cord Amniotic Fluid Assessment Amount of AF: normal amount MVP 5.8 cm. SANDRA 17.2 cm. Q1 5.8 cm, Q2 4.3 cm, Q3 3.3 cm, Q4 3.8 cm Biophysical Profile 2: breathing movements 2: Gross body movements 2: tone 2: Amniotic fluid volume 12/14 Biophysical profile score Anatomy Heart / Thorax Situs: situs solitus (normal) Gender: Unspecified Wants to know sex: no Performed By: Ester Zapien RDMS, RVT Read By: Bita Mortensen M.D. [facility] 11-01-2023 Progress note Formatting of t his note might be different from the original. KJ - VB No. LOF No. CTXS No. Movement: present. Other c/o: No. Medication list reviewed. Physical Exam See Flow Sheet Gen: no accute distress, well appearing A/P 31w2d Estimated Date of Delivery: 01/01/24 Chtn - continue labetalol & home BP monitoring H/o IUFD - continue 2x/wk testing MOD - repeat scheduled PTL precautions reviewed, Kick counts reviewed. Maximilian Valdovinos MD [facility] Work Phone: 11-01-2023 Miscellaneous Notes KJ - VB No. LOF No. CTXS No. Movement: present. Other c/o: No. Medication list reviewed. Physical Exam See Flow Sheet Gen: no accute distress, well appearing A/P 31w2d Estimated Date of Delivery: 01/01/24 Chtn - continue labetalol & home BP monitoring H/o IUFD - continue 2x/wk testing MOD - repeat scheduled PTL precautions reviewed, Kick counts reviewed. Maximilian Valdovinos MD documented in this encounter [facility] 11-01-2023 Instructions Soraida Bolanos MA - 11/01/2023 10:04 AM EDT SEQUENTIAL SCREENINGS The [facility] offers sequential screenings for women who are interested in screenings for chromosomal abnormalities and certain defects during a . The sequential screen combines ultrasound and blood tests to determine the risk of chromosomal abnormalities, including Down's Syndrome (Trisomy 21) and Trisomy 18, as well as open neural tube defects including spina bifida. Ultrasound examination is performed between 11 weeks and 13 weeks gestational age. Blood tests are drawn after the ultrasound and again later in the between 15 and 21 weeks gestational age. Please let your physician know if you are interested in this testing. It will require an appointment with our orthotics prosthetics technician. This is not an ultrasound performed by a physician in our office during a routine visit. SIGNS AND SYMPTOMS OF LABOR 1. Contractions every 10 minutes or more often 2. Clear, pink, or brownish fluid (water) leaking from vagina 3. Feeling that baby is pushing down, pressure 4. Low, dull backache 5. Cramps that feel like a period 6. Cramps with or without diarrhea If you notice any of the above symptoms, contact our office at [phone] and ask to speak with a nurse. After hours, you can call doctors registry at [phone] OR call [facility] at [phone] and ask to have the doctor wireless communications engineer paged. If you consider this an emergency, dial 9-1-5 or go to your nearest emergency department. NEED HELP? Are you dealing with a violent or abusive relationship? Are you a victim of rape or sexual assult? Call [facility] ([place]) 24 hour Crisis Hotline: 126.429.5837 or 359-055-2375. MANUAL Your Guide to a Healthy manual is now on-line. Visit [email or web address] to download your free copy documented in this encounter [facility] 10-31-2023 Telephone encounter Note Looks like she has seen neurology for migraine NANCE's and reglan was prescribed. Agree with continuing reglan PRN and tylenol PRN with hydration. If severe headache recommend going to ER for further evaluation of her headache. H/o cHTN and BP seems to be at her baseline. If she has severe headache, visual changes, RUQ pain, vomiting can go to L&D for further eval and r/o pre e. For pain around umbilicus if severe, fevers, chills, N/V to go to ER. Otherwise keep scheduled visit for tomorrow [facility] Work Phone: 10-31-2023 Miscellaneous Notes Looks like she has seen neurology for migraine NANCE's and reglan was prescribed. Agree with continuing reglan PRN and tylenol PRN with hydration. If severe headache recommend going to ER for further evaluation of her headache. H/o cHTN and BP seems to be at her baseline. If she has severe headache, visual changes, RUQ pain, vomiting can go to L&D for further eval and r/o pre e. For pain around umbilicus if severe, fevers, chills, N/V to go to ER. Otherwise keep scheduled visit for tomorrow Denies any dizziness or blurred vision with headache. Currently rating headache at a 6 out of 10 with medication. Taking Benadryl and Reglan for the headache. Patient is having cramping in her umbilicus that she rates at a 4 out of 10. Cramping is intermittent. Denies any bleeding or leaking, baby is active. Patient has appointment in office tomorrow for BPP and routine OB visit. Ester Sandoval RN documented in this encounter [facility] 10-31-2023 Telephone encounter Note Denies any dizziness or blurred vision with headache. Currently rating headache at a 6 out of 10 with medication. Taking Benadryl and Reglan for the headache. Patient is having cramping in her umbilicus that she rates at a 4 out of 10. Cramping is intermittent. Denies any bleeding or leaking, baby is active. Patient has appointment in office tomorrow for BPP and routine OB visit. Ester Sandoval RN [facility] 10-26-2023 History of Presen t illness Narrative NST SUMMARY PROVIDER ASSESSMENT AND INTERPRETATION Clarisa De La Cruz is a 33 year old female, , who is at 30w3d with an NIELS of 01/01/2024, by Last Menstrual Period dating method. Indications for NST: Chronic HTN and Previous IUFD Baseline: 140 Variability: Moderate Accelerations: Present 10 X 10 Decelerations: Variable (possible) with good return and 20min of reactive cat 1 tracing after Contractions: TOCO: None Interpretation: Category I and Reactive SIGNATURE: Jen Murphy MD documented in this encounter [facility] 10-26-2023 Progress note Formatting of t his note might be different from the original. Nst only [facility] 10-26-2023 Miscellaneous Notes Nst only documented in this encounter [facility] 10-26-2023 Haley Huston MA - 10/26/2023 9:38 AM EDT SEQUENTIAL SCREENINGS The [facility] offers sequential screenings for women who are interested in screenings for chromosomal abnormalities and certain defects during a . The sequential screen combines ultrasound and blood tests to determine the risk of chromosomal abnormalities, including Down's Syndrome (Trisomy 21) and Trisomy 18, as well as open neural tube defects including spina bifida. Ultrasound examination is performed between 11 weeks and 13 weeks gestational age. Blood tests are drawn after the ultrasound and again later in the between 15 and 21 weeks gestational age. Please let your physician know if you are interested in this testing. It will require an appointment with our orthotics prosthetics technician. This is not an ultrasound performed by a physician in our office during a routine visit. SIGNS AND SYMPTOMS OF LABOR 1. Contractions every 10 minutes or more often 2. Clear, pink, or brownish fluid (water) leaking from vagina 3. Feeling that baby is pushing down, pressure 4. Low, dull backache 5. Cramps that feel like a period 6. Cramps with or without diarrhea If you notice any of the above symptoms, contact our office at [phone] and ask to speak with a nurse. After hours, you can call doctors registry at [phone] OR call [facility] at [phone] and ask to have the doctor wireless communications engineer paged. If you consider this an emergency, dial 6-0-9 or go to your nearest emergency department. NEED HELP? Are you dealing with a violent or abusive relationship? Are you a victim of rape or sexual assult? Call [facility] ([place]) 24 hour Crisis Hotline: 855.224.9004 or 139-218-0161. MANUAL Your Guide to a Healthy manual is now on-line. Visit [email or web address] to download your free copy SEQUENTIAL SCREENINGS The [facility] offers sequential screenings for women who are interested in screenings for chromosomal abnormalities and certain defects during a . The sequential screen combines ultrasound and blood tests to determine the risk of chromosomal abnormalities, including Down's Syndrome (Trisomy 21) and Trisomy 18, as well as open neural tube defects including spina bifida. Ultrasound examination is performed between 11 weeks and 13 weeks gestational age. Blood tests are drawn after the ultrasound and again later in the between 15 and 21 weeks gestational age. Please let your physician know if you are interested in this testing. It will require an appointment with our orthotics prosthetics technician. This is not an ultrasound performed by a physician in our office during a routine visit. SIGNS AND SYMPTOMS OF LABOR 1. Contractions every 10 minutes or more often 2. Clear, pink, or brownish fluid (water) leaking from vagina 3. Feeling that baby is pushing down, pressure 4. Low, dull backache 5. Cramps that feel like a period 6. Cramps with or without diarrhea If you notice any of the above symptoms, contact our office at [phone] and ask to speak with a nurse. After hours, you can call doctors registry at [phone] OR call [facility] at [phone] and ask to have the doctor wireless communications engineer paged. If you consider this an emergency, dial 9-0 or go to your nearest emergency department. NEED HELP? Are you dealing with a violent or abusive relationship? Are you a victim of rape or sexual assult? Call [facility] ([place]) 24 hour Crisis Hotline: 605.182.6987 or 546-590-2339. MANUAL Your Guide to a Healthy manual is now on-line. Visit [email or web address] to download your free copy documented in this encounter [facility] 10-25-2023 History of Presen t illness Narrative HEADACHE MEDICINE NEW VISIT October 27, 2023 7:00 PM Headache 1 Diagnosis: Episodic Migraine Onset: - Pt reports onset of headaches in her teens--greater than 20 years. She reports that the headches have worsened since suspicion of a TIA in Apr 2023. Location: right and occipital (begins right unilateral occipital, then wraps forward--may generalized.) Quality/Description: throbbing Associated Symptoms: Photophobia: no Phonophobia: yes - sometimes Nausea: no Vomiting: no Associated symptoms: POTS. Reports she has syncopal episodes if severe. Worse with activity: yes Number of migraine headache days/month: 20 Migraine headache severity: 7/10 Number of headache free days/month: 10 Duration of headaches with treatment: Duration of attacks with treatment: greater than 4 hours up to entire day. Current preventive treatment: none Current abortive treatment: none Triggers: stress Onset of headache to peak: gradual Relieving factors: rest, sleep Positional changes: no Most common time of day for headache to begin: anytime (she confirms that the NANCE can awaken her from sleep at night.) Prodrome: none Aura: scotoma (duration is generally 10 minutes or less.) Days missed from work or school in the last month: 3 days PAST MEDICAL HISTORY Diagnosis Date Anemia 07/2018 Arachnoid cyst History of intrauterine in previous 07/01/2023 Hx of preeclampsia, prior , currently 01/2021 Around 32weeks Left lower quadrant abdominal pain 07/01/2023 Reports random sharp pain to left side. Likely round ligament pain. To notify if persistent or worsening. Lyme disease Mesenteric lymphadenitis POTS (postural orthostatic tachycardia syndrome) TIA (transient ischemic attack) 04/2023 Vaginal bleeding in , first trimester 07/01/2023 Per OB records, humza gestational hemorrhage: 2.4 cm on dating ultrasound. Reviewed likely the cause of her bleeding and that it likely resolved. Plans for NT scan and will confirm. No further bleeding. PAST SURGICAL HISTORY Procedure Laterality Date DELIVERY ONLY 2021 D AND C 07/17/2018 FOr retained POC EXCIS UTERINE FIBROID,VAG APPRCH 07/2018 PORT Insertion & removal x 2 Current Outpatient Medications Medication Sig labetalol (TRANDATE) 100 mg tablet Take 3 tablets by mouth three times a day. metoclopramide HCl (REGLAN) 5 mg tablet Take 1 tablet by mouth every afternoon. diphenhydrAMINE (BENADRYL ALLERGY) 25 mg tablet Take 25 mg by mouth every 6 hours as needed. PNV no.95/ferrous fum/folic ac ( ORAL) Take by mouth. loratadine (CLARITIN) 10 mg tablet Take 1 tablet by mouth once daily as needed (for allergy symptoms.). BABY ASPIRIN ORAL No current facility-administered medications for this visit. PHYSICAL EXAMINATION: No vitals for VV General appearance: Well appearing, alert, in no acute distress, well-hydrated, well nourished. Head: NC/AT Eyes: EOMI grossly on video visit Neuro: Negative findings: speech normal, mental status intact, no focal deficits. CN VII intact to facial symmetry, CN VIII intact to hearing. Diagnoses and all orders for this visit: Migraine with aura and without status migrainosus, not intractable - CONSULT TO NEUROLOGY - PROVIDER ORDERED FOLLOW UP; Future - metoclopramide HCl (REGLAN) 5 mg tablet; Take 1-2 tablets by mouth once daily as needed (migraine). Pt reports that she has lost babies in the past due to miscarriages as well as a stillborn baby. She is appropriately highly reluctant to start new medication Metoclopramide 5 mg has worked well on 2 occasions, so she is ok to continue this as her primary NANCE rescue agent. She can follow-up with us after delivery to discuss preventative migraine options. No new meds today. Molina Damon MD October 27, 2023 3:17 PM documented in this encounter [facility] 10-25-2023 Note Indication Evaluation of well-being TIA, Chronic hypertension, IUFD 24 weeks Impression REMOTE READ: Follow-up assessment of well-being in a complicated by chronic hypertension (labetalol), history of TIA, history of midtrimester IUFD, and history of delivery. - No malformations visualized on a limited survey - Biophysical profile score of 8/8 The patient was informed of sonographic findings and the potential for non-visualized malformations. Serial assessment of growth (every 4 weeks) and twice weekly surveillance are recommended (see prior MFM consult). Thank you for the referral. Recommendations As above Maternal Assessment Height 173 cm Height (ft) 5 ft Height (in) 8 in Physical Exam Initial weight (lb) 180 lb Initial BMI 27.37 kg/m Maternal assessment other: 4 Para 1 Growth Overview Exam date [place] BPD (mm) HC (mm) AC (mm) FL (mm) HL (mm) EFW (g) 08/16/2023 20w 2d 41 2% 164.7 18% 159.1 69% 32.2 55% 34 90% 347 47% 10/11/2023 28w 2d 62.2 <1% 252 19% 256 84% 55.3 85% 1346 70% Method Transabdominal ultrasound examination [place] . Number of fetuses: 1 Dating GA by prior assessment 30 w + 2 d NIELS by prior assessment: 01/01/2024 Assigned: based on stated NIELS, selected on 10/25/2023 Assigned GA 30 w + 2 d Assigned NIELS: 01/01/2024 General Evaluation Cardiac activity present. FHR 156 bpm. movements: present. Presentation: breech Placenta: Placental site: posterior, fundal Amniotic Fluid Assessment Amount of AF: normal amount MVP 6.2 cm. SANDRA 14.7 cm. Q1 2.3 cm, Q2 6.2 cm, Q3 3.1 cm, Q4 3.1 cm Biophysical Profile 2: breathing movements 2: Gross body movements 2: tone 2: Amniotic fluid volume 12/14 Biophysical profile score Performed By: Ester Zapien, MACKENZIE, RVT Read By: Seferino Medina M.D. [facility] 10-25-2023 Progress note Formatting of t his note might be different from the original. S: Clarisa De La Cruz is a 33 year old female who presents at 01/01/2024, by Last Menstrual Period for a routine visit. Denies headache, visual changes, chest pain, shortness of breath, vaginal bleeding, leakage of fluid, or dysuria. Feeling well, no complaints. No contractions Good movement BPP 12/14 NST tomorrow O: See flow sheet Gen: No apparent distress Abd: Gravid, nontender Increasing labetalol to 300 mg TID. Pt has 100 mg tabs and plenty of them ASSESSMENT/PLAN: 1. 30 weeks gestation of - ICD9: V22.2, ICD10: Z3A.30 (primary diagnosis) 2. Encounter for supervision of high risk in second trimester, antepartum - ICD9: V23.9, ICD10: O09.92 3. Chronic hypertension affecting - ICD9: 642.00, ICD10: O10.919 - Continue current medications - Recommend home blood pressure monitoring, to bring results to next visit - twice weekly testing Delmy Brasher MD [facility] 10-25-2023 Miscellaneous Notes S: Clarisa De La Cruz is a 33 year old female who presents at 01/01/2024, by Last Menstrual Period for a routine visit. Denies headache, visual changes, chest pain, shortness of breath, vaginal bleeding, leakage of fluid, or dysuria. Feeling well, no complaints. No contractions Good movement BPP 8/8 NST tomorrow O: See flow sheet Gen: No apparent distress Abd: Gravid, nontender Increasing labetalol to 300 mg TID. Pt has 100 mg tabs and plenty of them ASSESSMENT/PLAN: 1. 30 weeks gestation of - ICD9: V22.2, ICD10: Z3A.30 (primary diagnosis) 2. Encounter for supervision of high risk in second trimester, antepartum - ICD9: V23.9, ICD10: O09.92 3. Chronic hypertension affecting - ICD9: 642.00, ICD10: O10.919 - Continue current medications - Recommend home blood pressure monitoring, to bring results to next visit - twice weekly testing Delmy Brasher MD documented in this encounter [facility] 10-25-2023 Instructions Soraida Bolanos MA - 10/25/2023 3:16 PM EDT SEQUENTIAL SCREENINGS The [facility] offers sequential screenings for women who are interested in screenings for chromosomal abnormalities and certain defects during a . The sequential screen combines ultrasound and blood tests to determine the risk of chromosomal abnormalities, including Down's Syndrome (Trisomy 21) and Trisomy 18, as well as open neural tube defects including spina bifida. Ultrasound examination is performed between 11 weeks and 13 weeks gestational age. Blood tests are drawn after the ultrasound and again later in the between 15 and 21 weeks gestational age. Please let your physician know if you are interested in this testing. It will require an appointment with our orthotics prosthetics technician. This is not an ultrasound performed by a physician in our office during a routine visit. SIGNS AND SYMPTOMS OF LABOR 1. Contractions every 10 minutes or more often 2. Clear, pink, or brownish fluid (water) leaking from vagina 3. Feeling that baby is pushing down, pressure 4. Low, dull backache 5. Cramps that feel like a period 6. Cramps with or without diarrhea If you notice any of the above symptoms, contact our office at [phone] and ask to speak with a nurse. After hours, you can call doctors registry at [phone] OR call [facility] at [phone] and ask to have the doctor wireless communications engineer paged. If you consider this an emergency, dial 0-8-1 or go to your nearest emergency department. NEED HELP? Are you dealing with a violent or abusive relationship? Are you a victim of rape or sexual assult? Call [facility] ([place]) 24 hour Crisis Hotline: 569.445.9742 or 660-401-8066. MANUAL Your Guide to a Healthy manual is now on-line. Visit [email or web address] to download your free copy documented in this encounter [facility] 10-21-2023 History of Presen t illness Narrative NST SUMMARY PROVIDER ASSESSMENT AND INTERPRETATION Clarisa De La Cruz is a 33 year old female, , who is at 29w5d with an NIELS of 01/01/2024, by Last Menstrual Period dating method. Indications for NST: Previous IUFD and CHTN Baseline: 135 Variability: Moderate Accelerations: Present 15 X 15 Decelerations: Variable Contractions: TOCO: None Interpretation: Reactive SIGNATURE: Maximilian Valdovinos MD documented in this encounter [facility] 10-21-2023 Instructions Soraida Bolanos MA - 10/21/2023 8:16 AM EDT SEQUENTIAL SCREENINGS The [facility] offers sequential screenings for women who are interested in screenings for chromosomal abnormalities and certain defects during a . The sequential screen combines ultrasound and blood tests to determine the risk of chromosomal abnormalities, including Down's Syndrome (Trisomy 21) and Trisomy 18, as well as open neural tube defects including spina bifida. Ultrasound examination is performed between 11 weeks and 13 weeks gestational age. Blood tests are drawn after the ultrasound and again later in the between 15 and 21 weeks gestational age. Please let your physician know if you are interested in this testing. It will require an appointment with our orthotics prosthetics technician. This is not an ultrasound performed by a physician in our office during a routine visit. SIGNS AND SYMPTOMS OF LABOR 1. Contractions every 10 minutes or more often 2. Clear, pink, or brownish fluid (water) leaking from vagina 3. Feeling that baby is pushing down, pressure 4. Low, dull backache 5. Cramps that feel like a period 6. Cramps with or without diarrhea If you notice any of the above symptoms, contact our office at [phone] and ask to speak with a nurse. After hours, you can call doctors registry at [phone] OR call [facility] at [phone] and ask to have the doctor wireless communications engineer paged. If you consider this an emergency, dial 4--0 or go to your nearest emergency department. NEED HELP? Are you dealing with a violent or abusive relationship? Are you a victim of rape or sexual assult? Call [facility] ([place]) 24 hour Crisis Hotline: 747.809.2899 or 940-408-4007. MANUAL Your Guide to a Healthy manual is now on-line. Visit [email or web address] to download your free copy documented in this encounter [facility] 10-18-2023 Note Indication Evaluation of well-being TIA, Chronic hypertension, IUFD 24 weeks Impression REMOTE READ 1. Single, live, intrauterine . 2. Amniotic fluid is normal amount. 3. BPP 12/14. 4. The placenta is posterior, fundal. Recommendations Continue planned testing Maternal Assessment Height 173 cm Height (ft) 5 ft Height (in) 8 in Physical Exam Initial weight (lb) 180 lb Initial BMI 27.37 kg/m Maternal assessment other: 4 Para 1 Growth Overview Exam date GA BPD (mm) HC (mm) AC (mm) FL (mm) HL (mm) EFW (g) 08/16/2023 20w 2d 41 2% 164.7 18% 159.1 69% 32.2 55% 34 90% 347 47% 10/11/2023 28w 2d 62.2 <1% 252 19% 256 84% 55.3 85% 1346 70% Method Transabdominal ultrasound examination [place] . Number of fetuses: 1 Dating GA by prior assessment 29 w + 2 d NIELS by prior assessment: 01/01/2024 Assigned: based on stated NIELS, selected on 10/18/2023 Assigned GA 29 w + 2 d Assigned NIELS: 01/01/2024 General Evaluation Cardiac activity present. FHR 145 bpm. movements: present. Presentation: breech Placenta: Placental site: posterior, fundal Amniotic Fluid Assessment Amount of AF: normal amount MVP 6.1 cm. SANDRA 13.3 cm. Q1 4.2 cm, Q2 6.1 cm, Q3 0.0 cm, Q4 3.0 cm Biophysical Profile 2: breathing movements 2: Gross body movements 2: tone 2: Amniotic fluid volume 12/14 Biophysical profile score Performed By: Ester Zapien RDMS, RVT Read By: Jasmina Collazo M.D. [facility] 10-18-2023 Progress note Formatting of t his note might be different from the original. KJ - VB No. LOF No. CTXS No. Movement: present. Other c/o: No. Medication list reviewed. Physical Exam See Flow Sheet Gen: no accute distress, well appearing Abd: soft, nontender, gravid A/P 29w2d Estimated Date of Delivery: 01/01/24 MOD - repeat scheduled H/o IUFD - 2x/wk testing Chtn - continue labetalol PTL precautions reviewed, Kick counts reviewed. Maximilian Valdovinos MD [facility] 10-18-2023 Miscellaneous Notes KJ - VB No. LOF No. CTXS No. Movement: present. Other c/o: No. Medication list reviewed. Physical Exam See Flow Sheet Gen: no accute distress, well appearing Abd: soft, nontender, gravid A/P 29w2d Estimated Date of Delivery: 01/01/24 MOD - repeat scheduled H/o IUFD - 2x/wk testing Chtn - continue labetalol PTL precautions reviewed, Kick counts reviewed. Maximilian Valdovinos MD documented in this encounter [facility] 10-18-2023 Instructions Saadia Calix MA - 10/18/2023 8:57 AM EDT SEQUENTIAL SCREENINGS The [facility] offers sequential screenings for women who are interested in screenings for chromosomal abnormalities and certain defects during a . The sequential screen combines ultrasound and blood tests to determine the risk of chromosomal abnormalities, including Down's Syndrome (Trisomy 21) and Trisomy 18, as well as open neural tube defects including spina bifida. Ultrasound examination is performed between 11 weeks and 13 weeks gestational age. Blood tests are drawn after the ultrasound and again later in the between 15 and 21 weeks gestational age. Please let your physician know if you are interested in this testing. It will require an appointment with our orthotics prosthetics technician. This is not an ultrasound performed by a physician in our office during a routine visit. SIGNS AND SYMPTOMS OF LABOR 1. Contractions every 10 minutes or more often 2. Clear, pink, or brownish fluid (water) leaking from vagina 3. Feeling that baby is pushing down, pressure 4. Low, dull backache 5. Cramps that feel like a period 6. Cramps with or without diarrhea If you notice any of the above symptoms, contact our office at [phone] and ask to speak with a nurse. After hours, you can call doctors registry at [phone] OR call [facility] at [phone] and ask to have the doctor wireless communications engineer paged. If you consider this an emergency, dial 9-1-2 or go to your nearest emergency department. NEED HELP? Are you dealing with a violent or abusive relationship? Are you a victim of rape or sexual assult? Call [facility] ([facility] 24 hour Crisis Hotline: 527.737.5536 or 792-646-1763. MANUAL Your Guide to a Healthy manual is now on-line. Visit [email or web address] to download your free copy documented in this encounter [facility] 10-14-2023 Progress note Formatting of t his note might be different from the original. Nst only [facility] 10-14-2023 Miscellaneous Notes Nst only documented in this encounter [facility] 10-14-2023 History of Presen t illness Narrative NST SUMMARY PROVIDER ASSESSMENT AND INTERPRETATION Clarisa De La Cruz is a 33 year old female, , who is at 28w5d with an NIELS of 01/01/2024, by Last Menstrual Period dating method. Indications for NST: Chronic HTN and Previous IUFD Baseline: 150 Variability: Moderate Accelerations: Present 15 X 15 Decelerations: None Contractions: TOCO: None Interpretation: Category I and Reactive SIGNATURE: Jen Murphy MD documented in this encounter [facility] 10-14-2023 Instructions Haley Barrera MA - 10/14/2023 10:31 AM EDT SEQUENTIAL SCREENINGS The [facility] offers sequential screenings for women who are interested in screenings for chromosomal abnormalities and certain defects during a . The sequential screen combines ultrasound and blood tests to determine the risk of chromosomal abnormalities, including Down's Syndrome (Trisomy 21) and Trisomy 18, as well as open neural tube defects including spina bifida. Ultrasound examination is performed between 11 weeks and 13 weeks gestational age. Blood tests are drawn after the ultrasound and again later in the between 15 and 21 weeks gestational age. Please let your physician know if you are interested in this testing. It will require an appointment with our orthotics prosthetics technician. This is not an ultrasound performed by a physician in our office during a routine visit. SIGNS AND SYMPTOMS OF LABOR 1. Contractions every 10 minutes or more often 2. Clear, pink, or brownish fluid (water) leaking from vagina 3. Feeling that baby is pushing down, pressure 4. Low, dull backache 5. Cramps that feel like a period 6. Cramps with or without diarrhea If you notice any of the above symptoms, contact our office at [phone] and ask to speak with a nurse. After hours, you can call doctors registry at [phone] OR call [facility] at [phone] and ask to have the doctor wireless communications engineer paged. If you consider this an emergency, dial 9--2 or go to your nearest emergency department. NEED HELP? Are you dealing with a violent or abusive relationship? Are you a victim of rape or sexual assult? Call [facility] ([place]) 24 hour Crisis Hotline: 510.866.1178 or 741-441-6104. MANUAL Your Guide to a Healthy manual is now on-line. Visit [email or web address] to download your free copy documented in this encounter [facility] 10-11-2023 Progress note Formatting of t his note might be different from the original. DM- Pt doing well today. Denies Vaginal Bleeding, Leaking fluid, or contractions. Pt reports good movement. Will start twice weekly testing with NSTs and BPPs. Labetalol changed to 200mg TID due to elevated in BP. Has occasional HAs but was seen in L&D over weekend and PRE E work up was negative. RTO 2 weeks. Tdap today. 28 week labs today. BPP 12/14 Jen Murphy MD [facility] 10-11-2023 Miscellaneous Notes DM- Pt doing well today. Denies Vaginal Bleeding, Leaking fluid, or contractions. Pt reports good movement. Will start twice weekly testing with NSTs and BPPs. Labetalol changed to 200mg TID due to elevated in BP. Has occasional HAs but was seen in L&D over weekend and PRE E work up was negative. RTO 2 weeks. Tdap today. 28 week labs today. BPP 12/14 Jen Murphy MD documented in this encounter [facility] 10-11-2023 History of Presen t illness Narrative MFM Consult Follow Up Subjective: Clarisa is a 33yo @ 28w2d here for growth and return visit. She is doing fairly well today, did have recent hospital visit for migraine/headache with brief ocular symptom, which resolved and she was discharged home in improved condition. She does not have BP log with her today but reports she has been having higher BP prior to dose of labetalol, once even as high as 160 systolic although came down. Wondering if q8h dosing would be better. She does feel a little dizzy after dose, when her BP is around 120-130/60-70. Doing well from OB standpoint, feeling movement, no VB. Occasional [place] contractions none currently. Objective: BP 124/82 Wt 195 lb (88.5 kg) LMP 03/27/2023 BMI 30.09 kg/m A&O, NAD Abd soft, nontender during US exam US shows: Impression 1. Single, live, intrauterine . 2. 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 Amniotic fluid is normal amount. 4. The placenta is posterior, fundal. 5. Normal limited anatomy as detailed below. 6. BPP is 88. Assessment: 33yo @ 28/2, seen in co-management with OB team due to complications including chronic hypertension, history IUFD at 24 weeks, history POTS, history preeclampsia, history migraines concern for possible TIA history. Stable today but recent increase in baseline BP between labetalol doses. Discussed that she likely needs increase in anti-HTN. Could start procardia XL given changes across the day for extended release formulation, versus continued up-titration labetalol. The procardia may be less likely to cause dizziness side effect she describes, although she's tolerating this ok, and prefer strict BP control given her history. She prefers to up titrate labetalol, will try 200mg q8h, contact us with any questions/concerns/issues. We had discussed testing plan at her consult visit, will initiate twice weekly testing in conjunction with serial growth ultrasounds. Fetus with dolichocephaly/otherwise reassuring ultrasound likely due to position, reports her first child wore helmet due to head shape as this child was breech in utero entire . Plan: -Increase labetalol 200mg q8h -Keep BP log and bring in next visit versus send over My Chart for dose titration -Twice weekly testing due to IUFD history -Monthly growth ultrasounds -[facility] follow up with 34-36 week visit Medical Decision Making: Problems: Moderate: 1+ chronic illnesses with change Risk: Moderate: Moderate risk from testing/treatment and Drug management Medical Decision Making Level: 4 - Moderate Jasmina Collazo MD October 11, 2023 1:25 PM documented in this encounter [facility] 10-11-2023 Note Indication Evaluation of growth, Evaluation of well-being TIA, Chronic hypertension Impression 1. Single, live, intrauterine . 2. 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 Amniotic fluid is normal amount. 4. The placenta is posterior, fundal. 5. Normal limited anatomy as detailed below. 6. BPP is 8/8. Recommendations Continue testing and serial growth ultrasounds as planned at previous [facility] consult Maternal Assessment Height 173 cm Height (ft) 5 ft Height (in) 8 in Physical Exam Initial weight (lb) 180 lb Initial BMI 27.37 kg/m Maternal assessment other: 4 Para 1 Method Transabdominal ultrasound examination [place] . Number of fetuses: 1 Dating GA by prior assessment 28 w + 2 d NIELS by prior assessment: 01/01/2024 Ultrasound examination on: 10/11/2023 GA by U/S based upon: AC, BPD, Femur, HC GA by U/S 27 w + 6 d NIELS by U/S: 01/04/2024 Assigned: based on stated NIELS, selected on 10/11/2023 Assigned GA 28 w + 2 d Assigned NIELS: 01/01/2024 General Evaluation Cardiac activity present. FHR 142 bpm. movements: present. Presentation: breech Placenta: posterior, fundal Umbilical cord: 3 vessel cord Amniotic fluid: Amount of AF: normal amount. MVP 4.7 cm. SANDRA 11.9 cm. Q1 4.7 cm, Q2 3.9 cm, Q3 0.0 cm, Q4 3.2 cm Biophysical Profile 2: breathing movements 2: Gross body movements 2: tone 2: Amniotic fluid volume 12/14 Biophysical profile score Growth Overview Exam date GA BPD (mm) HC (mm) AC (mm) FL (mm) HL (mm) EFW (g) 08/16/2023 20w 2d 41 2% 164.7 18% 159.1 69% 32.2 55% 34 90% 347 47% 10/11/2023 28w 2d 62.2 <1% 252 19% 256 84% 55.3 85% 1346 70% Biometry Standard BPD 62.2 mm 25w 2d <1% Hadlock OFD 94.0 mm 27w 5d 49% Nicolaides HC 252.0 mm 27w 0d 19% Eliecer AC 256.0 mm 29w 5d 84% Hadlock Femur 55.3 mm 29w 1d 85% Eliecer EFW 1,346 g 28w 6d 70% Hadlock EFW (lb) 2 lb EFW (oz) 15 oz EFW by: Hadlock (HC-AC-FL) Extended Wound/Ostomy Clinical Nurse Specialist 5.7 mm Extremities / Bony Struc FL / HC 0.22 Other Structures FHR 142 bpm Anatomy Lateral ventricles: normal Cavum septi pellucidi: normal Cerebellum: normal Cisterna magna: normal 4-chamber view: normal RVOT view: normal LVOT view: normal 3-vessel view: normal Heart / Thorax Situs: situs solitus (normal) Aortic arch view: normal Diaphragm: normal Stomach: normal Kidneys: normal Bladder: normal Cervical spine: normal Thoracic spine: normal Lumbar spine: normal Sacral spine: normal Gender: Unspecified Wants to know sex: no Performed By: Ester Zapien RDMS, RVT Read By: Jasmina Collazo M.D. [facility] 10-11-2023 History of Presen t illness Narrative Patient identified by name and date of . Clarisa De La Cruz presents today for a vaccination of Tdap. Patient denies an allergy to latex: yes Patient denies a severe (life-threatening) allergy to a previous dose of Tdap, DTP, DTaP, DT or Td vaccine. Yes Patient denies history of epilepsy or neurological problems: Yes Patient is afebrile and denies being moderately or severely ill: Yes Patient denies history of Guillain-[place] Syndrome (a severe paralytic illness): Yes Tdap Adacel injection was given without incident. See immunizations for details of immunizations administered today. VIS sheet provided: Yes Provider Chito was present in office at time of injection. Haley Barrera MA documented in this encounter [facility] 10-07-2023 Telephone encounter Note Patient 27w5d calling with concerns of increased BP's at home. Patient states her BP has been running 140-150/93-95. Patient states she has had a headache with dizziness and blurred vision since yesterday at 7 pm and Tylenol is not helping. Patient had Sen marcano contractions yesterday but nothing today. Denies any bleeding, leaking or decreased movement. Patient currently taking Labetalol 200 mg BID. Discuss with provider wireless communications engineer, Dr. Brasher and she would like patient to go to L&D for monitoring. Patient notified to proceed to L&D and L&D notified and updated. Ester Sandoval RN [facility] 10-07-2023 Miscellaneous Notes Patient 27w5d calling with concerns of increased BP's at home. Patient states her BP has been running 140-150/93-95. Patient states she has had a headache with dizziness and blurred vision since yesterday at 7 pm and Tylenol is not helping. Patient had Sen mar[place] contractions yesterday but nothing today. Denies any bleeding, leaking or decreased movement. Patient currently taking Labetalol 200 mg BID. Discuss with provider wireless communications engineer, Dr. Brasher and she would like patient to go to L&D for monitoring. Patient notified to proceed to L&D and L&D notified and updated. Ester Sandoval RN documented in this encounter [facility] 09-14-2023 Progress note Formatting of t his note might be different from the original. RR- VB No. LOF No. CTXS No. Movement: present. Other c/o: some pain intermittently LLQ radiating toward groin. Had large amount of vaginal fluid pass earlier today then some leaking for about 45 min then stopped. No N/V/D/C. No dysuria. No fever or chills Medication list reviewed. Physical Exam See Flow Sheet Abd: soft, nontender, gravid : external genitalia: normal, vagina: pink, ruggated, discharge: odorless, clear, yellow, mucous, and blood: absent, cervix: closed, smooth, and nonfriable, NEg. pool. Amniotic Fluid Test 09/14/2023 4:38 PM Fern: neg ; Nitrazine: neg (pH less than 7) Fern Reference Range: Negative for amniotic fluid Nitrazine Reference Range: Normal vaginal pH is acidic (below 7.0) with pH above 7.0 (basic) indicating the presence of amniotic fluid. Lab Address: Ob/gynecology [address] [place] [id number] Dept: [phone] Provider: Tabby Krueger MD A/P 24w3d Estimated Date of Delivery: 01/01/24 c/o vaginal discharge, eval on L&D, neg test for SROM. Neg fern here. No vaginitis symptoms or evidence of PTL. Reassured keep next appt or f/u prn chornic HTN- bp stable today . Tabby Krueger M.D. [facility] 09-14-2023 Miscellaneous Notes RR- VB No. LOF No. CTXS No. Movement: present. Other c/o: some pain intermittently LLQ radiating toward groin. Had large amount of vaginal fluid pass earlier today then some leaking for about 45 min then stopped. No N/V/D/C. No dysuria. No fever or chills Medication list reviewed. Physical Exam See Flow Sheet Abd: soft, nontender, gravid : external genitalia: normal, vagina: pink, ruggated, discharge: odorless, clear, yellow, mucous, and blood: absent, cervix: closed, smooth, and nonfriable, NEg. pool. Amniotic Fluid Test 09/14/2023 4:38 PM Fern: neg ; Nitrazine: neg (pH less than 7) Fern Reference Range: Negative for amniotic fluid Nitrazine Reference Range: Normal vaginal pH is acidic (below 7.0) with pH above 7.0 (basic) indicating the presence of amniotic fluid. Lab Address: Ob/gynecology [address] [place] [id number] Dept: [phone] Provider: Tabby Krueger MD A/P 24w3d Estimated Date of Delivery: 01/01/24 c/o vaginal discharge, eval on L&D, neg test for SROM. Neg fern here. No vaginitis symptoms or evidence of PTL. Reassured keep next appt or f/u prn chornic HTN- bp stable today . Tabby Krueger M.D. documented in this encounter [facility] 09-14-2023 Telephone encounter Note 24w3d Patient called because she is leaking a lot of fluid. She has LLQ pain and NANCE. Advised to go to L&D for evaluation after speaking with DM. L&D notified. Updated H&P faxed. Delmy Caballero, JUAN [facility] 09-14-2023 Miscellaneous Notes 24w3d Patient called because she is leaking a lot of fluid. She has LLQ pain and NANCE. Advised to go to L&D for evaluation after speaking with DM. L&D notified. Updated H&P faxed. Delmy Caballero RN documented in this encounter [facility] 09-08-2023 Telephone encounter Note [facility] unable to get appointment until November. Faxed referral and information to [facility]. Will leave open for their reply. Advised patient to call us once she hears from them. Batool Rogel RN [facility] 09-08-2023 Miscellaneous Notes [facility] unable to get appointment until November. Faxed referral and information to [facility]. Will leave open for their reply. Advised patient to call us once she hears from them. Batool Rogel RN Called patient to see if she wants [facility] or [facility]. Prefers to stay with [facility]. Transferred to [facility] to schedule. Asked that she call or send us a H[employer] message with her appointment date with cardiology to be sure it's soon enough. Delmy Caballero RN We have nothing soon (Apr) with Dr. Lehman or Dr. Aguillon. If they need to be seen soon, they will need to go to [facility] or if they need to stay in [facility]. Tere Robertson MA Patient seen in office today - reports over last week HR has been spiking to 150-200 intermittently lasting for 15min. BP is controlled during this time. Pt denies CP and occasional SOB during those episodes. 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 Can we see about getting her in with [facility] or [facility] please. Consult order placed. documented in this encounter [facility] 09-08-2023 Telephone encounter Note Called patient to see if she wants [facility] or [facility]. Prefers to stay with [facility]. Transferred to [facility] to schedule. Asked that she call or send us a Netac message with her appointment date with cardiology to be sure it's soon enough. Delmy Caballero RN [facility] 09-07-2023 Telephone encounter Note We have nothing soon (Apr) with Dr. Lehman or Dr. Aguillon. If they need to be seen soon, they will need to go to [facility] or if they need to stay in [facility]. Tere Robertson MA [facility] 09-07-2023 Progress note Formatting of t his note might be different from the original. DM- Pt doing well today. Denies Vaginal Bleeding, Leaking fluid, or contractions. Pt reports good movement. Pt reports elevated HR intermittently over last week or so- 150s-200s but BP well controlled. [employer] firmware software verification engineer left- needs new firmware software verification engineer for POTS. Discussed fluids, rest, and when to go to ER. Cardiology consult placed. RTO 4 weeks, growth us 4 weeks. Continue labetalol 200mg BID, ASA. CS 12/22/23 scheduled. Jen Murphy MD [facility] 09-07-2023 Miscellaneous Notes DM- Pt doing well today. Denies Vaginal Bleeding, Leaking fluid, or contractions. Pt reports good movement. Pt reports elevated HR intermittently over last week or so- 150s-200s but BP well controlled. [employer] firmware software verification engineer left- needs new firmware software verification engineer for POTS. Discussed fluids, rest, and when to go to ER. Cardiology consult placed. RTO 4 weeks, growth us 4 weeks. Continue labetalol 200mg BID, ASA. CS 12/22/23 scheduled. Jen Murphy MD documented in this encounter [facility] 09-07-2023 Telephone encounter Note Patient seen in office today - reports over last week HR has been spiking to 150-200 intermittently lasting for 15min. BP is controlled during this time. Pt denies CP and occasional SOB during those episodes. 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 Can we see about getting her in with [facility] or [facility] please. Consult order placed. [facility] Work Phone: 09-07-2023 Instructions Haley Barrera MA - 09/07/2023 4:03 PM EDT SEQUENTIAL SCREENINGS The [facility] offers sequential screenings for women who are interested in screenings for chromosomal abnormalities and certain defects during a . The sequential screen combines ultrasound and blood tests to determine the risk of chromosomal abnormalities, including Down's Syndrome (Trisomy 21) and Trisomy 18, as well as open neural tube defects including spina bifida. Ultrasound examination is performed between 11 weeks and 13 weeks gestational age. Blood tests are drawn after the ultrasound and again later in the between 15 and 21 weeks gestational age. Please let your physician know if you are interested in this testing. It will require an appointment with our orthotics prosthetics technician. This is not an ultrasound performed by a physician in our office during a routine visit. SIGNS AND SYMPTOMS OF LABOR 1. Contractions every 10 minutes or more often 2. Clear, pink, or brownish fluid (water) leaking from vagina 3. Feeling that baby is pushing down, pressure 4. Low, dull backache 5. Cramps that feel like a period 6. Cramps with or without diarrhea If you notice any of the above symptoms, contact our office at [phone] and ask to speak with a nurse. After hours, you can call [facility] at [phone] OR call [facility] at [phone] and ask to have the doctor wireless communications engineer paged. If you consider this an emergency, dial 01-07-9 or go to your nearest emergency department. NEED HELP? Are you dealing with a violent or abusive relationship? Are you a victim of rape or sexual assult? Call [facility] ([place]) 24 hour Crisis Hotline: 615.224.1016 or 050-148-1581. MANUAL Your Guide to a Healthy manual is now on-line. Visit [email or web address] to download your free copy documented in this encounter [facility] 08-19-2023 Miscellaneous Notes Surgery sheet to DM to complete. Delmy Caballero RN Please block my 8:10 and 8:20 that day in office. If the 7:30 slot is open I will do it if not SW will have to do it at noon. Please place OR booking sheet in my office. Surgery schedule is open that day. documented in this encounter [facility] 08-16-2023 Miscellaneous Notes DM- Pt doing well today. Denies Vaginal Bleeding, Leaking fluid, or contractions. Pt reports good movement. Met with MFM today increased BP meds- Labetalol to 200mg BID, will see MFM at 32 weeks. Growth us at 28 weeks. Taking ASA, PNV. Headaches worse in - meeting with Headache team in September. Saw Neuro 08/09/23 will have work up after for TIA. Will look at repeat cs around 38-39 weeks December 18- - unless spontaneous labor ?? TOLAC. Target BP 130/80s not higher due to h/o TIA. RTO 4 wks. Jen Murphy MD documented in this encounter [facility] 08-16-2023 Instructions Haley Barrera MA - 08/16/2023 9:11 AM EDT SEQUENTIAL SCREENINGS The [facility] offers sequential screenings for women who are interested in screenings for chromosomal abnormalities and certain defects during a . The sequential screen combines ultrasound and blood tests to determine the risk of chromosomal abnormalities, including Down's Syndrome (Trisomy 21) and Trisomy 18, as well as open neural tube defects including spina bifida. Ultrasound examination is performed between 11 weeks and 13 weeks gestational age. Blood tests are drawn after the ultrasound and again later in the between 15 and 21 weeks gestational age. Please let your physician know if you are interested in this testing. It will require an appointment with our orthotics prosthetics technician. This is not an ultrasound performed by a physician in our office during a routine visit. SIGNS AND SYMPTOMS OF LABOR 1. Contractions every 10 minutes or more often 2. Clear, pink, or brownish fluid (water) leaking from vagina 3. Feeling that baby is pushing down, pressure 4. Low, dull backache 5. Cramps that feel like a period 6. Cramps with or without diarrhea If you notice any of the above symptoms, contact our office at [phone] and ask to speak with a nurse. After hours, you can call [facility] [facility] at [phone] OR call [facility] at [phone] and ask to have the doctor wireless communications engineer paged. If you consider this an emergency, dial 9-1-8 or go to your nearest emergency department. NEED HELP? Are you dealing with a violent or abusive relationship? Are you a victim of rape or sexual assult? Call [facility] ([place]) 24 hour Crisis Hotline: 287.326.9373 or 343-237-0908. MANUAL Your Guide to a Healthy manual is now on-line. Visit [email or web address] to download your free copy documented in this encounter [facility] 08-16-2023 History of Presen t illness Narrative Images from the original note were not included. Manager Traffic [place] OUTPATIENT VISIT DATE August 16, 2023 OUTPATIENT VISIT TYPE CONSULT REFERRING PROVIDER: Ivett Palomo APRN.CHECK WEIGHER Recommendations from today's consultation will be conveyed through the electronic medical record. History of Present Illness: 33 year old at 20w2d with Estimated Date of Delivery: 01/01/24 presenting for consultation with Maternal- Medicine at the [facility] in the setting of history of previous intrauterine demise at 27 weeks, chronic hypertension on medication, history pre-eclampsia. She also has history of POTS, and complex migraines with recent concern for transient ischemic event (following with cerebrovascular clinic at [facility]). Clarisa is doing fairly well today, denies current symptoms of headache. Has been feeling fair this . Her relevant histories have been updated and are reviewed below: Obstetric History: # 1 - Date: None, Sex: None, Weight: None, GA: None, Delivery: None, Apgar1: None, Apgar5: None, Living: None, Comments: None # 2 - Date: 06/24/18, Sex: Female, Weight: 9 oz (0.255 kg), GA: 24w1d, Delivery: Vaginal, Spontaneous, Apgar1: None, Apgar5: None, Living: Demise, Comments: No known cause for IUFD, Cytotec induction,maternal fever,retained POC 07/17/2018 D&C # 3 - Date: 02/11/21, Sex: Male, Weight: 6 lb 4 oz (2.835 kg), GA: 37w0d, Delivery: , Low Transverse, Apgar1: None, Apgar5: None, Living: Living, Comments: scheduled C Section for HTN-chronic vs gestational- on labetalol, Breech presentation,800cc # 4 - Date: None, Sex: None, Weight: None, GA: None, Delivery: None, Apgar1: None, Apgar5: None, Living: None, Comments: None Gynecologic History: History D&C for retained POC after loss Hysteroscopy and fibroid removal Previous history irregular/heavy menses Past Medical History: PAST MEDICAL HISTORY Diagnosis Date Anemia 07/2018 Arachnoid cyst History of intrauterine in previous 07/01/2023 Hx of preeclampsia, prior , currently 01/2021 Around 32weeks Left lower quadrant abdominal pain 07/01/2023 Reports random sharp pain to left side. Likely round ligament pain. To notify if persistent or worsening. Lyme disease Mesenteric lymphadenitis POTS (postural orthostatic tachycardia syndrome) TIA (transient ischemic attack) 04/2023 Vaginal bleeding in , first trimester 07/01/2023 Per OB records, humza gestational hemorrhage: 2.4 cm on dating ultrasound. Reviewed likely the cause of her bleeding and that it likely resolved. Plans for NT scan and will confirm. No further bleeding. Past Surgical History: PAST SURGICAL HISTORY Procedure Laterality Date DELIVERY ONLY 2021 D AND C 07/17/2018 FOr retained POC EXCIS UTERINE FIBROID,VAG [facility] 07/2018 PORT Insertion & removal x 2 Medications: Current Outpatient Medications on File Prior to Visit Medication Sig PNV no.95/ferrous fum/folic ac ( ORAL) Take by mouth. labetalol (TRANDATE) 100 mg tablet Take 1 tablet by mouth two times a day. loratadine (CLARITIN) 10 mg tablet Take 1 tablet by mouth once daily as needed (for allergy symptoms.). BABY ASPIRIN ORAL Allergies: ALLERGIES Allergen Reactions Adhesive Tape-Silic* Rash Tegaderm dressing Latex Rash Sulfa (Sulfonamide * Rash Social History: Social History Tobacco Use Smoking status: Never Passive exposure: Never Smokeless tobacco: Never Vaping Use Vaping Use: Never used Substance Use Topics Alcohol use: Never Drug use: Never Family History: FAMILY HISTORY Problem Relation Age of Onset No Known Problems Mother Hypertension Father other (Sloping Brain Syndrome) Father Hypertension Sister No Known Problems Sister Heart Attack Maternal Grandmother Stroke Maternal Grandmother 63 No Known Problems Maternal Grandfather Review of Systems: Negative other than as noted above. Physical Exam: BP 134/80 Wt 185 lb 3.2 oz (84 kg) LMP 03/27/2023 BMI 28.58 kg/m Gen: Well-appearing, no acute distress CV/Resp: Non-labored breathing on room air Abd: Gravid, non-tender during US exam Ext: Moving spontaneously, no significant edema b/l US today shows: Impression 1. Single, live, intrauterine . 2. biometry is consistent with the established gestational age. 3. Unremarkable anatomic survey. No markers for aneuploidy are noted. 4. Amniotic fluid is normal amount. 5. The placenta is posterior, fundal. 6. Normal transabdominal cervical length without evidence of funneling or dynamic changes. Assessment and Plan: 33 year old at 20w2d presenting for MFM consultation due to chronic hypertension, history IUFD at 24 weeks, history POTS, history preeclampsia, history migraines concern for possible TIA history. She is overall stable today, mild BP with 130s systolic, no current evidence of complication or superimposed preeclampsia. We discussed the risks of hypertension in , which include (but are not limited to) preeclampsia/eclampsia, end organ complications, CVA, growth restriction, stillbirth and need for premature delivery. Baseline assessment of end organ function was reassuring. We discussed my recommendations including close assessment of BP daily, serial growth ultrasounds and testing in the third trimester, and delivery 38-39 weeks (unless indicated earlier). Will increase labetalol to 200mg twice daily today as she reports most systolic BP are 130s. She recent had concerning symptoms with headache, episode of transient confusion and aphasia in context of migraine. MRI brain was negative for stroke. There was concern for TIA versus complex migraine variant. She saw cerebrovascular clinic at [facility] with plan for low-dose aspirin, goal BP target < 130/80, follow up headache clinic. They also ordered some thrombophilia testing which she will have drawn. We had discussion about risk recurrence IUFD. This was a twin (loss at 8 weeks then subsequent at 24 weeks) which may have made it higher risk. Most patients will have livebirth although her IUFD history increases risk of IUFD. Our testing guidelines suggest initiation of testing 2 weeks prior to loss, and we discussed the risks/limitations/alternatives of early testing. We discussed the possibility of false positive testing at the threshold of viability or in humza-viable time period including risk for iatrogenic delivery based on testing, versus the risk of loss at this point in . Offered testing based on guideline versus growth and 24-25 weeks, with growth and start testing and 28 weeks. After discussion they decided on growth monthly and start twice weekly testing at 28 weeks if growth normal. We discussed that while quality data on and POTS are limited, the available literature suggests is safe for people with POTS and we anticipate a favorable outcome. Some patients feel better during from POTS standpoint likely related to increased blood volume. Many POTS medications are safe in when benefits outweigh hypothetical risks.. The testing plan will be dictated by IUFD history. Recommended she avoid triggers and continue medication if needed, but she has been feeling well from this standpoint. She does have risks for invasive placentation (prior , D&C and fibroid removal). On imaging today the placenta is posterior with no previa which is reassuring. However, imaging is limited in diagnosing all cases of PAS particularly in posterior placenta. Summary of Recommendations: -Increase labetalol to 200mg q12h -Continue baby aspirin -Monitor blood pressure at home once a day; keep BP log and bring this to each visit for review. Goal BP < 130/80 -Serial growth scans in the third trimester, every month starting 24 weeks -Twice weekly testing (alternate BPP with NST) at 28 weeks (declines starting testing at 24 weeks after discussing risks/benefits/alternatives) -Deliver 38-39 weeks unless indicated earlier based on growth Problem List Items Addressed This Visit Cardiovascular Chronic hypertension affecting - Primary Overview Taking Labetalol 100 mg BID. 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 No known cause. Was induced and delivered vaginally. [place] Complicated by retained POCs, had D&C Plan monthly growth ultrasounds Twice weekly testing around 28 weeks History of section Overview Due to breech and pre eclampsia. 37 weeks per op note, chronic vs gestational HTN Other Encounter for supervision of high risk in second trimester, antepartum Overview History of migraine Overview Neurology consult placed. CTA within normal limits 04/2023 (in scanned docs) Seen by cerebrovascular clinic [facility]: Baby aspirin Goal BP < 130/80 Headache clinic referral TIA (transient ischemic attack) Overview Went to [facility] on 04/23/2023 for a migraine, difficulty processing questions, difficulty forming speech, difficulty ambulating, secondary to left sided weakness and intermittent confusion. She was transferred to [facility]. No acute findings on head CT, but follow up to neurology was recommended. MFM consult placed. Other Visit Diagnoses 20 weeks gestation of Thank you for allowing us to participate in the care of this patient. Please do not hesitate to contact our office with any questions or concerns. Consultation requested by Ivett Palomo for an opinion regarding chronic hypertension, history IUFD, history POTS, history preeclampsia, history complicated migraine vs TIA. My final recommendations will be communicated back to the requesting physician by way of shared Medical record or letter to requesting physician via US mail. I spent 55 minutes in the visit, with more than 50% of the total [id number] time of the visit in counseling / coordination of care. Jasmina Collazo MD August 16, 2023 8:24 AM documented in this encounter [facility] 08-09-2023 Instructions Sneha Cardenas APRN.[facility] - 08/09/2023 4:43 PM EDT Images from the original note were not included. Stroke Signs and Symptoms: *Stroke is a medical emergency. Know the warning signs of stroke: Sudden numbness or weakness of the face, arm or leg, especially on one side of the body Sudden confusion, trouble speaking, or understanding Sudden trouble seeing in one eye, or both eyes Sudden trouble walking, dizziness, loss of balance, or coordination Sudden severe headache with no known cause *If you, or someone with you, has one or more of these signs, don't delay! Immediately call 911, or the emergency medical services (EMS) number so an ambulance can be sent for you. Also, check the time so that you will know when the symptoms first appeared. It is very important to take immediate action, every second counts. Medical treatment may be available if action is taken early enough. documented in this encounter [facility] 08-02-2023 Note HNO ID: [id number] Author: SNEHA CARDENAS APRN.WILDER Service: ? Author Type: Nurse Practitioner Type: Progress Notes Filed: 08/15/2023 23:30 Note Text: [facility] Initial Visit [facility] [id number] PCP: Ottoniel Encarnacion, WILDER [address] [place] [address] CEREBROVASCULAR HISTORY Clarisa De La Cruz is a 33 year old female who presents for neurologic evaluation regarding history of possible transient neurologic symptoms concerning for possible TIA. Stroke Event Information 33 year old right-handed female with significant past medical history of anemia, POTS, chronic headaches, prior pregnancies complicated by preeclampsia and separate with intrauterine who was evaluated at outside hospital following onset of persistent headache with transient episode of speech difficulty. 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 This was witnessed by other teachers. She reports a history of POTS with syncopal episodes and notes this episode to be unlike these prior events. She reports her symptoms worsened when she started to experience left arm/leg numbness and begun to drag her left foot. These symptoms last for ~30 minutes to an hour. Her arrived to work to drive her home. She reports a headache starting that morning upon awakening that persistent throughout the day. She notes the head to be severe, stabbing, holocephalic headache but more prominent in the left posterior occipital region. Upon returning home she took a nap although the headache persisted afterwards. She had tried Tylenol without any relief. The following day her headache persisted while at work. She again tried Tylenol with little improvement. She notes an episode of being unable to unlock her room door and she had difficulty remember how to use the bunn. On 04/23/2024 she sought evaluation at local [facility] where blood pressure was noted to be elevated 153/99. She received headache cocktail with headache resolution afterwards. She has a history of hypertension following prior with preeclampsia for which she takes labetalol 50 mg daily at the time. She underwent CT/CTA imaging without any acute findings. She was transferred to [facility] for further evaluation. MRI brain imaging was negative. She was advised to have TTE and this was completed as an outpatient- normal per report although unable to perform bubbles study as she has since discovered she is . Started on aspirin 81 mg daily at hospital discharge and this was recommended to continue in her current secondary to priorhistory of preeclampsia. She reports chronic history of migraines starting at age 14. She has more headache days than not. She denies prior history of migraines headaches with associated language deficits or unilateral weakness. Occasionally headaches with confusion before.. She has only tried OTC medications with occasional relief recently. Was on medications as a teenager, had bad side effects. Visual auras with floaters, black dots. No photosensitivity, + phonophobia. No previous. Reports this to be one of the more severe headaches she has experienced. Has had 2 more severe headaches since events. Underwent echo was normal, unable to complete. Notes sinus/tension-type headaches as well occasionally. Denies personal history of blood clotting disorders. Prior history of anemia following . Maternal grandmother with history of stroke and heart disease. Denies personal tobacco or alcohol use. PAST MEDICAL HISTORY Diagnosis Date Anemia 07/2018 Arachnoid cyst History of intrauterine in previous 07/01/2023 Hx of preeclampsia, prior , currently 01/2021 Around 32weeks Left lower quadrant abdominal pain 07/01/2023 Reports random sharp pain to left side. Likely round ligament pain. To notify if persistent or worsening. Lyme disease Mesenteric lymphadenitis POTS (postural orthostatic tachycardia syndrome) TIA (transient ischemic attack) 04/2023 Vaginal bleeding in , first trimester 07/01/2023 Per OB records, humza gestational hemorrhage: 2.4 cm on dating ultrasound. Reviewed likely the cause of her bleeding and that it likely resolved. Plans for NT scan and will confirm. No further bleeding. PAST SURGICAL HISTORY Procedure Laterality Date DELIVERY ONLY 2021 D AND C 07/17/2018 FOr retained POC [facility] PORT Insertion AND removal x 2 FAMILY HISTORY Problem Relation Age of Onset No Known Problems Mother Hypertension Father other (Sloping Brain Syndrome) Father Hypertension Sister No Known Problems Sister Heart Attack Maternal Grandmother Stroke Maternal Grandmother 63 No Known Problems Maternal Grandfather Social His (more content not included)... [facility] 08-02-2023 History of Presen t illness Narrative [facility] Initial Visit [facility] [id number] PCP: Ottoniel Encarnacion, CHECK WEIGHER [facility] [place] [address] [place] [address] CEREBROVASCULAR HISTORY Clarisa De La Cruz is a 33 year old female who presents for neurologic evaluation regarding history of possible transient neurologic symptoms concerning for possible TIA. Stroke Event Information 33 year old right-handed female with significant past medical history of anemia, POTS, chronic headaches, prior pregnancies complicated by preeclampsia and separate with intrauterine who was evaluated at outside hospital following onset of persistent headache with transient episode of speech difficulty. 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 This was witnessed by other teachers. She reports a history of POTS with syncopal episodes and notes this episode to be unlike these prior events. She reports her symptoms worsened when she started to experience left arm/leg numbness and begun to drag her left foot. These symptoms last for ~30 minutes to an hour. Her arrived to work to drive her home. She reports a headache starting that morning upon awakening that persistent throughout the day. She notes the head to be severe, stabbing, holocephalic headache but more prominent in the left posterior occipital region. Upon returning home she took a nap although the headache persisted afterwards. She had tried Tylenol without any relief. The following day her headache persisted while at work. She again tried Tylenol with little improvement. She notes an episode of being unable to unlock her room door and she had difficulty remember how to use the bunn. On 04/23/2024 she sought evaluation at [facility] where blood pressure was noted to be elevated 153/99. She received headache cocktail with headache resolution afterwards. She has a history of hypertension following prior with preeclampsia for which she takes labetalol 50 mg daily at the time. She underwent CT/CTA imaging without any acute findings. She was transferred to [facility] for further evaluation. MRI brain imaging was negative. She was advised to have TTE and this was completed as an outpatient- normal per report although unable to perform bubbles study as she has since discovered she is . Started on aspirin 81 mg daily at hospital discharge and this was recommended to continue in her current secondary to prior history of preeclampsia. She reports chronic history of migraines starting at age 14. She has more headache days than not. She denies prior history of migraines headaches with associated language deficits or unilateral weakness. Occasionally headaches with confusion before.. She has only tried OTC medications with occasional relief recently. Was on medications as a teenager, had bad side effects. Visual auras with floaters, black dots. No photosensitivity, + phonophobia. No previous. Reports this to be one of the more severe headaches she has experienced. Has had 2 more severe headaches since events. Underwent echo was normal, unable to complete. Notes sinus/tension-type headaches as well occasionally. Denies personal history of blood clotting disorders. Prior history of anemia following . Maternal grandmother with history of stroke and heart disease. Denies personal tobacco or alcohol use. PAST MEDICAL HISTORY Diagnosis Date Anemia 07/2018 Arachnoid cyst History of intrauterine in previous 07/01/2023 Hx of preeclampsia, prior , currently 01/2021 Around 32weeks Left lower quadrant abdominal pain 07/01/2023 Reports random sharp pain to left side. Likely round ligament pain. To notify if persistent or worsening. Lyme disease Mesenteric lymphadenitis POTS (postural orthostatic tachycardia syndrome) TIA (transient ischemic attack) 04/2023 Vaginal bleeding in , first trimester 07/01/2023 Per OB records, humza gestational hemorrhage: 2.4 cm on dating ultrasound. Reviewed likely the cause of her bleeding and that it likely resolved. Plans for NT scan and will confirm. No further bleeding. PAST SURGICAL HISTORY Procedure Laterality Date DELIVERY ONLY 2021 D AND C 07/17/2018 FOr retained POC EXCIS UTERINE FIBROID,VAG APPRCH 07/2018 PORT Insertion & removal x 2 FAMILY HISTORY Problem Relation Age of Onset No Known Problems Mother Hypertension Father other (Sloping Brain Syndrome) Father Hypertension Sister No Known Problems Sister Heart Attack Maternal Grandmother Stroke Maternal Grandmother 63 No Known Problems Maternal Grandfather Social History Tobacco Use Smoking status: Never Passive exposure: Never Smokeless tobacco: Never Vaping Use Vaping Use: Never used Substance Use Topics Alcohol use: Never Drug use: Never MEDICATIONS Current Outpatient Medications Medication Sig PNV no.95/ferrous fum/folic ac ( ORAL) Take by mouth. BABY ASPIRIN ORAL labetalol (TRANDATE) 100 mg tablet Take 1 tablet by mouth two times a day. loratadine (CLARITIN) 10 mg tablet Take 1 tablet by mouth once daily as needed (for allergy symptoms.). No current facility-administered medications for this visit. ALLERGIES ALLERGIES Allergen Reactions Adhesive Tape-Silic* Rash Tegaderm dressing Latex Rash Sulfa (Sulfonamide * Rash PHYSICAL EXAMINATION BP 109/76 Pulse 81 Ht 171.5 cm (5' 7.5) Wt 84.8 kg (187 lb) LMP 03/27/2023 BMI 28.86 kg/m General: Pleasant, well-developed, well-nourished, in no acute distress. HEENT: Normocephalic, atraumatic. Lungs: Respirations even and unlabored. Skin: No rash or ecchymoses visible. Neurological: Awake, alert, oriented to person, place, and time. Speech fluent, no dysarthria. Good attention and insight into illness. Cranial Nerves: Extraocular movements grossly intact. Facial movements appear normal and symmetric. Motor: Moves upper extremities freely. LABS Cholesterol: No results found for: CHOL No results found for: LDL No results found for: HDL No results found for: TG Diabetes: No results found for: HBA1C IMAGING Transthoracic echocardiogram (05/06/2023): Left Ventricle: Chamber size is normal. Normal wall thickness. Normal global systolic function. Regional wall motion is normal. Ejection fraction is normal (57%). Diastolic function is normal. Right Ventricle: Chamber size is normal. Systolic function is normal. No hemodynamically significant valve disease MRI brain without contrast (04/24/2023) FINDINGS: There is a small focus of T2/FLAIR hyperintense focus in the subcortical right frontal lobe which is nonspecific and could be incidental related to previous inflammation or sequelae of migraines. No evidence of edema. No evidence of mass lesion. No evidence of hemorrhage. No diffusion restriction or evidence of acute infarct is identified. No extracerebral collection. Sellar and parasellar structures are unremarkable. 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 Posterior fossa is unremarkable. Ventricles and sulci are within normal limits. There is a cavum vergae. Extracranial structures are unremarkable. Patient Entered Questionnaires 07/28/2023 Health Status Impact by Stroke or CVD Impact Not at all PROMIS/NeuroQoL Score Percentiles 07/28/2023 Physical Health Physical Function Percentile 69 Sleep Percentile 54 Fatigue Percentile 46 Pain Interference Percentile 27* 07/28/2023 PROMIS SOCIAL ROLE SCORE Social Role Satisfaction Percentile 58 07/28/2023 Mental Health NeuroQol Cognitive Function Percentile 54 General Self-Efficacy Percentile 34 07/28/2023 06/12/2021 PROMIS Global Health Scale Physical Health Percentile 22* 15 Mental Health Percentile 73 53 Percentiles provide an indication of how a patient's score ranks in relation to the [place] general population. > 31st percentile is within normal limits or better * < 31st percentile is at least SD worse than population, which may be clinically relevant < 16th percentile is at least 1 SD worse than population and warrants attention Depression Screenin07/28/2023 PHQ-9 Score 1 Self-Harm Response Not at all PHQ-9 Scores: PHQ-9 Self-Harm (Item 9) Response: 0 - 9 No to Mild depression 0 - Not at all 10 - 14 Moderate depression 1 - Several Days > 15 Severe depression 2 - More than half the days 3 - Nearly every day 07/28/2023 06/12/2021 Sleep Apnea Probability Score Probability (%) 8 (Sleep study not recommended) 7.23 (Sleep study not recommended) Stroke Mechanism and Scales IMPRESSION Episode of transient confusion and aphasia in setting of migraine. MRI brain negative for stroke. Unclear etiology of this event. Concern for possible transient ischemic attack versus complex migraine variant. , currently 18 weeks gestation Hypertension Prior history of complicated by preeclampsia POTS Chronic headaches and migraines PLAN Reasonable to continue aspirin 81 mg daily for secondary stroke prevention. Review with staff Refer to headache clinic Optimization of stroke risk factors Blood pressure management: goal BP less than 130/80, continue antihypertensives as prescribed. Recommend home blood pressure monitoring twice daily. Notify primary care provider of elevated readings. Regular follow up with primary care doctor for health maintenance Assist ensuring blood pressure and cholesterol are at goal Screen and manage diabetes Lifestyle modification -- Establish goals Diet Regular exercise Establish weight goals with primary care doctor Additional stroke reduction measures and stroke warning signs are listed below. Reviewed signs and symptoms warranting emergent neurologic evaluation. Return to clinic to be determined I spent a total of 50 minutes on the date of service which included preparing to see the patient, [id number] patient care, completing clinical documentation, obtaining and/or reviewing separately obtained history, counseling and educating the patient/family/caregiver, communicating with other HCPs (not separately reported), independently interpreting results (not separately reported), communicating results to the patient/family/caregiver, and care coordination (not separately reported) SIGNATURE Sneha Cardenas APRN.CNP 08/02/2023 Addendum: Reviewed with Dr. Sims. Plan for continued aspirin use for concern of possible TIA. Recommend evaluation with headache clinic as planned. Plan for hypercoagulable panel following current as likely altered results in setting of . Consider repeat TTE with bubble study after as well. Consider CTV/MRV to rule out venous thrombosis although given would avoid contrast study and opt for MRV imaging. Obtain imaging from prior hospitalizations to access venous sinuses (prior CTA performed at [facility]). Imaging requested. Sneha Cardenas APRN.CNP 08/09/2023 documented in this encounter [facility] 07-29-2023 Telephone encounter Note Images from the original note were not included. OSH imaging/records received from [facility]: July 29, 2023 -Medical Hx & Imaging Reports available in Care Everywhere. OSH imaging/records received from [facility]): July 29, 2023 -Medical Hx & Imaging Reports available in Care Everywhere. Successfully faxed RICKEY via [employer]~ From: Sosa dias Last change on 07/29/2023 03:08:53 pm Sent on 07/29/2023 03:08:40 pm Completed [facility] 07-29-2023 Miscellaneous Notes Images from the original note were not included. OSH imaging/records received from [facility]: July 29, 2023 -Medical Hx & Imaging Reports available in Care Everywhere. OSH imaging/records received from [facility]: July 29, 2023 -Medical Hx & Imaging Reports available in Care Everywhere. Successfully faxed RICKEY via [employer]~ From: Sosa dias Last change on 07/29/2023 03:08:53 pm Sent on 07/29/2023 03:08:40 pm Completed documented in this encounter [facility] 07-25-2023 Miscellaneous Notes KIERSTEN-S: Clarisa De La Cruz is a 33 year old female who presents at 17w1d with NIELS:01/01/2024, by Last Menstrual Period for a routine visit. Denies headache, visual changes, chest pain, shortness of breath, vaginal bleeding, leakage of fluid, or dysuria. Feeling well, no complaints. O: See flow sheet Gen: No apparent distress Abd: Gravid, nontender ASSESSMENT/PLAN: 1. Encounter for supervision of high risk in second trimester, antepartum 2. Chronic hypertension affecting 3. History of intrauterine in previous 4. 17 weeks gestation of P: 1) PTL precautions reviewed and when to call 2) RTO in 3 weeks 3) Continue BP checks at home and Labetalol 100mg PO BID. If increasing to call office for management. Will send BP log weekly 4) Anatomy US with MFM consult for Chronic HTN 5) Neuro appointment for TIAs on 08/02/23 6) Reviewed to see physician for care due to GHTN. Geovanna Avilez APRN.CNM documented in this encounter [facility] 07-25-2023 Kaylee Carrillo LPN - 07/25/2023 3:37 PM EDT SEQUENTIAL SCREENINGS The [facility] offers sequential screenings for women who are interested in screenings for chromosomal abnormalities and certain defects during a . The sequential screen combines ultrasound and blood tests to determine the risk of chromosomal abnormalities, including Down's Syndrome (Trisomy 21) and Trisomy 18, as well as open neural tube defects including spina bifida. Ultrasound examination is performed between 11 weeks and 13 weeks gestational age. Blood tests are drawn after the ultrasound and again later in the between 15 and 21 weeks gestational age. Please let your physician know if you are interested in this testing. It will require an appointment with our orthotics prosthetics technician. This is not an ultrasound performed by a physician in our office during a routine visit. SIGNS AND SYMPTOMS OF LABOR 1. Contractions every 10 minutes or more often 2. Clear, pink, or brownish fluid (water) leaking from vagina 3. Feeling that baby is pushing down, pressure 4. Low, dull backache 5. Cramps that feel like a period 6. Cramps with or without diarrhea If you notice any of the above symptoms, contact our office at [phone] and ask to speak with a nurse. After hours, you can call doctors registry at [phone] OR call [facility] at [phone] and ask to have the doctor wireless communications engineer paged. If you consider this an emergency, dial 9-1-1 or go to your nearest emergency department. NEED HELP? Are you dealing with a violent or abusive relationship? Are you a victim of rape or sexual assult? Call [facility] ([place]) 24 hour Crisis Hotline: 226.690.9979 or 921-129-6296. MANUAL Your Guide to a Healthy manual is now on-line. Visit [email or web address] to download your free copy documented in this encounter [facility] 07-25-2023 Miscellaneous Notes Patient should see physician Sorry I have my hour visit then. I think it would be best for CP or KIERSTEN to see her if they have openings and make it clear to patient she is only to schedule with physicians - she is only 17 weeks- if there is issue with BP CP or KIERSTEN can grab one of us. Please do not cancel her appt. Clarisa never read the [employer] message. Her OB appointment should be with a physician with hypertension per CP's last message. See phone note. Can any physicians squeeze her in today or can she be rescheduled? Ivett Palomo APRN.CNP documented in this encounter [facility] 07-22-2023 Miscellaneous Notes The blood pressures are within normal ranges and not too low at this point. She may be feeling light headed due to standing on feet (which is common in ) Keep taking Labetalol and patient has next appointment on 07/25/23 with CALENDER INSPECTOR- I recommend she see a physician. Please assist with scheduling. Rosalinda Bob APRN.CNM 16w5d Taking labetalol documented in this encounter [facility] 07-13-2023 Miscellaneous Notes S: Clarisa is a 33 year old female who presents at 15w3d for a routine visit. Denies headache, visual changes, chest pain, shortness of breath, vaginal bleeding, leakage of fluid, or dysuria. Feeling well, no complaints. O: See flow sheet Gen: No apparent distress Abd: Gravid, nontender ASSESSMENT/PLAN: 1. Encounter for supervision of high risk in second trimester, antepartum - ICD9: V23.9, ICD10: O09.92 (primary diagnosis) - Has anatomy ultrasound scheduled with M - Has neuro appointment scheduled for TIAs 2. 15 weeks gestation of - ICD9: V22.2, ICD10: Z3A.15 - URINE OB DIP B/O 3. Chronic hypertension affecting - ICD9: 642.00, ICD10: O10.919 - Taking Labetolol 100 mg BID, blood pressures at home 130s/80s - Parameters reviewed - Continues LDA PTL precautions reviewed. RTO in 4 weeks or sooner as needed. Ivett Palomo APRN.CHECK WEIGHER documented in this encounter [facility] 07-13-2023 Instructions Haley Barrera MA - 07/13/2023 3:34 PM EST SEQUENTIAL SCREENINGS The [facility] offers sequential screenings for women who are interested in screenings for chromosomal abnormalities and certain defects during a . The sequential screen combines ultrasound and blood tests to determine the risk of chromosomal abnormalities, including Down's Syndrome (Trisomy 21) and Trisomy 18, as well as open neural tube defects including spina bifida. Ultrasound examination is performed between 11 weeks and 13 weeks gestational age. Blood tests are drawn after the ultrasound and again later in the between 15 and 21 weeks gestational age. Please let your physician know if you are interested in this testing. It will require an appointment with our orthotics prosthetics technician. This is not an ultrasound performed by a physician in our office during a routine visit. SIGNS AND SYMPTOMS OF LABOR 1. Contractions every 10 minutes or more often 2. Clear, pink, or brownish fluid (water) leaking from vagina 3. Feeling that baby is pushing down, pressure 4. Low, dull backache 5. Cramps that feel like a period 6. Cramps with or without diarrhea If you notice any of the above symptoms, contact our office at [phone] and ask to speak with a nurse. After hours, you can call doctors registry at [phone] OR call [facility] at [phone] and ask to have the doctor wireless communications engineer paged. If you consider this an emergency, dial 9-- or go to your nearest emergency department. NEED HELP? Are you dealing with a violent or abusive relationship? Are you a victim of rape or sexual assult? Call [facility] ([place]) 24 hour Crisis Hotline: 434.767.2627 or 865-147-8807. MANUAL Your Guide to a Healthy manual is now on-line. Visit [email or web address] to download your free copy documented in this encounter [facility] 07-01-2023 Miscellaneous Notes NT US appointment cancelled. Delmy Caballero, RN Called patient's as patient's phone not going through. Will have to cancel Tuesday's NT scan due to being too far along per fatuma Zapien. She will be 14 weeks. Patient's verbalizes understanding and will notify patient. She may call in with further questions. Please cancel NT. documented in this encounter [facility] 07-01-2023 Miscellaneous Notes Referral to [facility] Msg to [place] team to assist with scheduling. documented in this encounter [facility] 07-01-2023 History of Presen t illness Narrative INITIAL OB ASSESSMENT HPI: Clarisa is a 33 year old White Female here to establish Obstetrical Care. Patient's last menstrual period was 03/19/2023. from OB Dating Form. Complaints: (!) Abdominal pain; Heart racing or skipping beats; Severe nausea/vomiting; Vaginal bleeding OB History T1 L1 SAB0 IAB0 Ectopic0 Multiple1 Live Births1 Previous history: Prior : Yes History of 4th degree laceration: History question Answer Diagnosis Date Comment Perineal Laceration, 3rd or 4th degree No History of perineal laceration 07/01/2023 History of shoulder dystocia: Shoulder Dystocia No History of gestational diabetes: Diabetes in No Patient's Risk Screening for delivery: Have you had a prior medellin between 20w and 36w6d? (!) Yes Did you present in active spontaneous labor or have ruptured membranes, or advanced cervical dilation (greater than or equal to 4 cm) or effacement? No How many pregnancies have you had before? 2 Did you have a previous baby with a GBS Infection? No Please select all that apply for any prior : Baby small for gestational age; Stillbirth MEDICAL/PSYCHOSOCIAL HISTORY: History question Answer Diagnosis Date Comment Severe bleeding with delivery No History of hemorrhage 07/01/2023 History question Answer Diagnosis Date Comment Thyroid Disease No Thyroid disease 07/01/2023 Diabetes in No No results found for: ABORHD BMI 28.12 kg/(m^2) Last Pap: History of abnormal pap: Abnormal Pap No Prior treatment for cervical dysplasia: none. History of STDs: N/A Partner History of STDs: None Did you have a partner with Herpes? No Tobacco use: No E-Cigarette/Vaping Use: No Caffeine use: Yes, [address] Pepper per day Drug use: No Alcohol use: No Multivitamin with Folic acid: Yes Would refuse blood transfusion if medically necessary: No Social Needs: How often does this describe you? I don't have enough money to pay my bills: Never Within the past 12 months, have you worried that your food would run out before you had money to buy more? Never In the past 12 months, has lack of reliable transportation kept you from going to medical appointments or work, or from getting things needed for daily living? Never In the past 12 months, have you had any concerns about having a place to live, or about the condition or quality of your housing? Never Would you like more information on any of the following (please check all that apply)? Not interested Social History: Do you have any history of depression, anxiety, PTSD, or other mood problems? Anxiety Do you have a history of abuse or trauma that may impact your experience? No Are you currently employed? Yes Depression/Anxiety Screening: denies symptoms of depression. OB Depression and Anxiety Screening- This Encounter (since 06/30/2023) Over the past 2 weeks have you felt down, depressed, or hopeless? Negative Over the past two weeks, have you felt little interest or pleasure in doing things? Negative Feeling nervous, anxious or on edge 0-Not at all Not being able to stop or control worrying 0-Not al all Anxiety Pre-Screening Total (If >/= 3 additional questions will be reviewed) 0 Genetic Screening: Partner present: No Patient verbalized knowledge of partner family health history: Yes Do you or your partner have any personal or family history of defects not previously discussed: No Do you have history of a complicated by anomaly, genetic condition, or demise: No ACOG Recommended Screening: Screening for early gestational diabetes testing: Criteria for early testing requires elevated BMI plus one other risk factor: BMI 28.12 kg/(m^2) (risk factor if > than 25 or 23 in Americans) Additional risk factors: First-degree relative with diabetes She does not meet ACOG criteria for early gestational DM screening. Screening for low dose aspirin use for the prevention of pre-eclampsia: Low dose aspirin should be considered if the patient has one high or two moderate risk factors: High risk factors: History of pre-eclampsia, especially when accompanied by an adverse outcome Moderate risk ractors: None She does meet criteria for low dose ASA OB Risk Screening: Completed, positive findings include: Patient answered 'Yes' they had a prior medellin between 20w and 36w6d. 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 multivitamin tablet Take 1 tablet by mouth once daily. ascorbic acid, vitamin C, (VITAMIN C) 250 mg tablet Take 250 mg by mouth once daily. SPRINTEC 0.25-35 mg-mcg per tablet Take 1 tablet by mouth once daily. cholestyramine (QUESTRAN) 4 gram packet DISSOLVE ONE PACKET IN BEVERAGE AND DRINK DAILY DIRECTED ofloxacin (FLOXIN) 0.3 % otic solution Use 5 Drops in the right ear once daily. 5 mL 0 cyanocobalamin, vitamin B-12, (VITAMIN B-12 ORAL) Take by mouth once daily. cholecalciferol, vitamin D3, (VITAMIN D3 ORAL) Take by mouth once daily. No current facility-administered medications for this visit. Allergies As of Date: 07/01/2023 Allergen Noted Reaction ADHESIVE TAPE-SILICONES 02/27/2019 Rash LATEX 02/20/2019 Rash SULFA (SULFONAMIDE ANTIBIOTICS) 02/20/2019 Rash Fully Assessed 07/01/2023 Does patient have penicillin allergy: No REVIEW OF SYSTEMS: GENERAL: Negative for: Fever or Chills HEENT: Negative for: Impaired Vision, Ringing in Ears, Nosebleeds + headaches NECK: Negative for: Swelling, Pain, Stiffness RESPIRATORY: Negative for: Cough, Shortness of breath, Wheezing GASTROINTESTINAL: Negative for: Heartburn, Constipation, Diarrhea, Blood in stool, Vomiting + nausea MUSCULOSKELETAL: Negative for: Muscle or joint pain, stiffness, Joint swelling NEUROLOGIC/PSYCHIATRIC: Negative for: Weakness, Paralysis, Numbness, Tingling, Tremor, Anxiety, Depression, Memory loss SKIN: Negative for: Rash, Itching GENITOURINARY: Negative for: vaginal itching, vaginal discharge, hematuria or dysuria PHYSICAL EXAM: Ht 5' 7.5 (1.72m) Wt 182 lb 3.2 oz (82.6kg) LMP 03/19/2023 BMI 28.10 kg/(m^2). GENERAL: pleasant in no apparent distress DERMATOLOGY: Normal, without lesions, non-icteric, and non-hirsute NECK: Supple, full range of motion, no adenopathy, and thyroid normal CHEST: Normal inspiratory effort ABDOMEN: soft, non-tender, and no masses NEURO: alert and oriented x3,exam grossly non-focal Limited OB ultrasound exam: not performed ASSESSMENT: 33 year old at 13w1d wks gestational age PLAN: 1) Patient oriented to practice. Patient given new OB orientation folder. Discussed nutrition, folic acid supplementation, dietary guidelines, exercise, smoking, alcohol, caffeine, and drug use. Discussed gestational weight gain guidelines. Discussed routine OB labs including STD/HIV. Discussed how to access Your guide to a health and the Psychiatric Social Worker Supervisor. Discussed aneuploidy and carrier screening. Regarding aneuploidy screening, nuchal translucency/first trimester early anatomy ultrasound and NIPT were discussed. Regarding carrier screening, the myriad screen was discussed. The risks/benefits and limitations of NIPT/aneuploidy screening were reviewed including the potential for false negative and false positive results. We discussed the availability of professional-society guided carrier screening and reviewed the conditions screened and limitations of screening. The availability of genetic counseling was reviewed. Information on aneuploidy/carrier screening was provided. The patient chooses: Aneuploidy screening: chooses to proceed with First trimester early anatomy ultrasound (12-13w6d) and Carrier screening: Previously completed Discussed hemoglobin electrophoresis. Patient: Declines Patient offered option of Virtual Visits. Patient unsure. May consider in future. Reviewed midwifery and incinerator operator services that are available. ACTIVE PROBLEM LIST Encounter for Supervision of High Risk in Second Trimester, Antepartum - 07/01/2023 Comment: Care Checklist Vaccines: [ ] Flu vaccine [ ] declined [ ] RSV vaccine 32 0/7 - 36 / (Jan - Jun) [ ] declined [ ] COVID vaccine [ ] declined [ ] TDaP 27-36 [ ] declined First trimester: [X] Dating US [X] 1st tri labs [ ] Pap smear [X] Carrier screening [ ] declined [ ] NIPT screening [ ] declined [X] First trimester anatomy scan [ ] declined [X] ASA ppx indicated [ ] not indicated [ ] M Power Consult [ ] not indicated [ ] declined Second trimester: [ ] AFP [ ] declined [ ] Anatomy scan [ ] Mode of Delivery - [ ] Feeding - [ ] Pump ordered [ ] Diabetes screen [ ] CBC, RPR Third trimester (28-30 weeks): [ ] Consent [ ] Contraception - [ ] [place] Third trimester (36-40 weeks): [ ] GBS [ ] Presentation - [ ] Scheduled [ ] yes - Hibiclens, pre-op instructions, CBC, T&S ordered [ ] no [ ] H&P With Care Elsewhere in Second Trimester - 07/01/2023 Comment: Transferring from [place]. Chronic Hypertension Affecting - 07/01/2023 Comment: Taking Labetalol 100 mg BID. Baseline pre e labs ordered by last provider. Continue LDA. MFM consult placed. Reviewed BP parameters. Systolic of 140 today. Patient states that it has been in the 130s at home. If BP is in 140s at home, to notify and Labetalol dose may be adjusted. History of Intrauterine in Previous - 07/01/2023 Comment: Lost one twin around 8 weeks, second twin no cardiac activity at 27 weeks gestation. No known cause. Was induced and delivered vaginally. Roxi History of Migraine - 07/01/2023 Comment: Neurology consult placed. History of Section - 07/01/2023 Comment: Due to breech and pre eclampsia. History of Pre-Eclampsia - 07/01/2023 Comment: 37 weeks, continue LDA. Tia (Transient Ischemic Attack) - 07/01/2023 Comment: Went to [place] ER on 04/23/2023 for a migraine, difficulty processing questions, difficulty forming speech, difficulty ambulating, secondary to left sided weakness and intermittent confusion. She was transferred to [facility]. No acute findings on head CT, but follow up to neurology was recommended. MFM consult placed. Vaginal Bleeding in , First Trimester - 07/01/2023 Comment: Per OB records, humza gestational hemorrhage: 2.4 cm on dating ultrasound. Reviewed likely the cause of her bleeding and that it likely resolved. Plans for NT scan and will confirm. No further bleeding. Nausea/Vomiting in - 07/01/2023 Comment: Declines medication at this time. No recent vomiting. Pots (Postural Orthostatic Tachycardia Syndrome) - 07/01/2023 Comment: Recommend follow up with firmware software verification engineer. Left Lower Quadrant Abdominal Pain - 07/01/2023 Comment: Reports random sharp pain to left side. Likely round ligament pain. To notify if persistent or worsening. No signs of acute abdomen - no guarding, rebound tenderness, or pain with palpation. Follow up in 3 days for NT scan. Plan for MFM consult and neurology consult. Ivett Palomo APRN.CHECK WEIGHER documented in this encounter [facility] 07-01-2023 Instructions Kaylee Yao LPN - 07/01/2023 2:51 PM EST Please select the following link to access the [facility] Your Guide to a Healthy . [email or web address] documented in this encounter [facility] 07-01-2023 History of Past i llness Narrative Problem Noted Date Diagnosed Date Resolved Date Vaginal bleeding in pregnanc y, first trimester 07/01/2023 07/13/2023 Overview: Per OB records, humza gestational hemorrhage: 2.4 cm on dating ultrasound. Reviewed likely the cause of her bleeding and that it likely resolved. Plans for NT scan and will confirm. No further bleeding. Left lower quadrant abdominal pain 07/01/2023 07/13/2023 Overview: Reports random sharp pain to left side. Likely round ligament pain. To notify if persistent or worsening. documented as of this encounter (statuses as of 07/14/2023) [facility]02-23-2024 History of Past illness Narrative* Problem Noted Date Diagnosed Date Resolved Date Vaginal bleeding in pregnanc y, first trimester 07/01/2023 07/13/2023 Overview: Per OB records, humza gestational hemorrhage: 2.4 cm on dating ultrasound. Reviewed likely the cause of her bleeding and that it likely resolved. Plans for NT scan and will confirm. No further bleeding. Left lower quadrant abdominal pain 07/01/2023 07/13/2023 Overview: Reports random sharp pain to left side. Likely round ligament pain. To notify if persistent or worsening. documented as of this encounter (statuses as of 07/22/2023) [facility]-23-2024 History of Past illness Narrative* Problem Noted Date Diagnosed Date Resolved Date Vaginal bleeding in pregnanc y, first trimester 07/01/2023 07/13/2023 Overview: Per OB records, humza gestational hemorrhage: 2.4 cm on dating ultrasound. Reviewed likely the cause of her bleeding and that it likely resolved. Plans for NT scan and will confirm. No further bleeding. Left lower quadrant abdominal pain 07/01/2023 07/13/2023 Overview: Reports random sharp pain to left side. Likely round ligament pain. To notify if persistent or worsening. documented as of this encounter (statuses as of 07/26/2023) [facility] History of Past illness Narrative* Problem Noted Date Diagnosed Date Resolved Date Vaginal bleeding in pregnanc y, first trimester 07/01/2023 07/13/2023 Overview: Per OB records, humza gestational hemorrhage: 2.4 cm on dating ultrasound. Reviewed likely the cause of her bleeding and that it likely resolved. Plans for NT scan and will confirm. No further bleeding. Left lower quadrant abdominal pain 07/01/2023 07/13/2023 Overview: Reports random sharp pain to left side. Likely round ligament pain. To notify if persistent or worsening. documented as of this encounter (statuses as of 07/26/2023) [facility] History of Past illness Narrative* Problem Noted Date Diagnosed Date Resolved Date Vaginal bleeding in pregnanc y, first trimester 07/01/2023 07/13/2023 Overview: Per OB records, humza gestational hemorrhage: 2.4 cm on dating ultrasound. Reviewed likely the cause of her bleeding and that it likely resolved. Plans for NT scan and will confirm. No further bleeding. Left lower quadrant abdominal pain 07/01/2023 07/13/2023 Overview: Reports random sharp pain to left side. Likely round ligament pain. To notify if persistent or worsening. documented as of this encounter (statuses as of 08/10/2023) [facility] History of Past illness Narrative* Problem Noted Date Diagnosed Date Resolved Date Vaginal bleeding in pregnanc y, first trimester 07/01/2023 07/13/2023 Overview: Per OB records, humza gestational hemorrhage: 2.4 cm on dating ultrasound. Reviewed likely the cause of her bleeding and that it likely resolved. Plans for NT scan and will confirm. No further bleeding. Left lower quadrant abdominal pain 07/01/2023 07/13/2023 Overview: Reports random sharp pain to left side. Likely round ligament pain. To notify if persistent or worsening. documented as of this encounter (statuses as of 08/16/2023) [facility] History of Past illness Narrative* Problem Noted Date Diagnosed Date Resolved Date Vaginal bleeding in pregnanc y, first trimester 07/01/2023 07/13/2023 Overview: Per OB records, humza gestational hemorrhage: 2.4 cm on dating ultrasound. Reviewed likely the cause of her bleeding and that it likely resolved. Plans for NT scan and will confirm. No further bleeding. Left lower quadrant abdominal pain 07/01/2023 07/13/2023 Overview: Reports random sharp pain to left side. Likely round ligament pain. To notify if persistent or worsening. documented as of this encounter (statuses as of 08/16/2023) [facility] History of Past illness Narrative* Problem Noted Date Diagnosed Date Resolved Date Vaginal bleeding in pregnanc y, first trimester 07/01/2023 07/13/2023 Overview: Per OB records, humza gestational hemorrhage: 2.4 cm on dating ultrasound. Reviewed likely the cause of her bleeding and that it likely resolved. Plans for NT scan and will confirm. No further bleeding. Left lower quadrant abdominal pain 07/01/2023 07/13/2023 Overview: Reports random sharp pain to left side. Likely round ligament pain. To notify if persistent or worsening. documented as of this encounter (statuses as of 08/17/2023) [facility] History of Past illness Narrative* Problem Noted Date Diagnosed Date Resolved Date Vaginal bleeding in pregnanc y, first trimester 07/01/2023 07/13/2023 Overview: Per OB records, humza gestational hemorrhage: 2.4 cm on dating ultrasound. Reviewed likely the cause of her bleeding and that it likely resolved. Plans for NT scan and will confirm. No further bleeding. Left lower quadrant abdominal pain 07/01/2023 07/13/2023 Overview: Reports random sharp pain to left side. Likely round ligament pain. To notify if persistent or worsening. documented as of this encounter (statuses as of 08/19/2023) [facility] History of Past illness Narrative* Problem Noted Date Diagnosed Date Resolved Date Vaginal bleeding in pregnanc y, first trimester 07/01/2023 07/13/2023 Overview: Per OB records, humza gestational hemorrhage: 2.4 cm on dating ultrasound. Reviewed likely the cause of her bleeding and that it likely resolved. Plans for NT scan and will confirm. No further bleeding. Left lower quadrant abdominal pain 07/01/2023 07/13/2023 Overview: Reports random sharp pain to left side. Likely round ligament pain. To notify if persistent or worsening. documented as of this encounter (statuses as of 08/27/2023) [facility]01-15-2024 NotePROCEDURE: ULTRASOUND 1ST TRIMESTER W TRANSVAGINAL, 05/23/2023, 8:14 AM EST CLINICAL INDICATIONS: Encounter for high-risk , first trimester 3 para 1 AB 1 LMP 03/27/2023 Expected gestational age by LMP: 8 weeks 1 day Expected NIELS by LMP: 01/01/2024 COMPARISON: None TECHNIQUE: Transabdominal, transvaginal first trimester obstetric sonogram, grayscale, color, and spectral assessment. FINDINGS: Uterus: 12.2 x 4.8 x 6.3 cm. A single living intrauterine is identified. Intrauterine gestational sac, normal yolk sac, embryonic pole is seen. Cardiac activity is seen, heart rate 154 bpm. Mean gestational sac size: 2.86 cm Embryonic crown-rump length: 1.30 cm Sonographic gestational age: 7 weeks 4 days +/- 5 days Sonographic NIELS: 01/05/2024. A 2.7 x 1.2 x 2.0 cm subacute perigestational hemorrhage is favored. Likely involving less than 20% of the gestational sac circumference. Maternal right ovary: 2.4 x 1.2 x 2.1 cm, volume 3 mL. Normal sonographic morphology. Maternal left ovary: 20.8 x 2.3 x 2.8 cm. 1.4 x 1.1 x 1.3 cm thick-walled cystic structure within the left ovary with peripheral vascularity seen, low level internal echoes. Maternal left ovarian complex corpus luteal cyst is favored. IMPRESSION: 1. Single living intrauterine , sonographic gestational age of 7 weeks 4 days +/- 5 days. 2. Sonographic NIELS 01/05/2024. 3. Small subacute perigestational hemorrhage measuring up to 2.4 cm. 4. Normal maternal right ovarian sonographic morphology. 5. Complex 1.4 cm maternal left ovarian corpus luteal cyst. Attention on follow-up recommended in this regard.[facility]12-17-2023 Progress note* CDU Provider Note - Jax Rojas MD - 04/24/2023 10:05 AM EST This patient was appropriately risk stratified for observation level of care and placed on an observation protocol in our Clinical Decision Unit. The patient's intensity of service and severity of illness was appropriately aligned with observation level of care. Medical Decision Making Amount and/or Complexity of Data Reviewed Labs: ordered. Radiology: ordered. ECG/medicine tests: ordered. Risk OTC drugs. Prescription drug management. 33 y.o. female was appropriately risk stratified for observation level of care and was placed in EDOU for observation. This patient reports history of HTN and migraine. She reports her symptoms started on 04/21 with episodes of difficulty with word finding while at work. She also endorsed headache and some left sided weakness at that time. This patient also reports episodes of confusion yesterday while at work. Her labs were reviewed: Results for orders placed or performed during the hospital encounter of 04/23/23 CBC AND ELECTRONIC DIFF Result Value Ref Range WBC Count 8.67 3.99 - 11.19 K/uL RBC Count 4.89 3.91 - 5.04 M/uL Hemoglobin 14.5 11.4 - 15.2 g/dL Hematocrit 43.7 34.9 - 44.3 % Mean Cell Volume 89.4 79.6 - 97.7 fL Mean Cell Hgb 29.7 25.9 - 33.9 pg Mean Cell Hgb Conc 33.2 31.4 - 35.9 g/dL RBC Distribution 11.9 10.8 - 14.9 % Platelet Count 297 150 - 393 K/uL Mean Platelet Volume 10.5 8.5 - 12.2 fL DIFF STATUS Electronic Differential Segs + Bands Auto 62.6 % Immature Grans % 0.1 % Lymphocyte % Auto 25.0 % Monocyte % Auto 8.0 % Eosinophil % Auto 3.8 % Basophil % Auto 0.5 % Nucleated RBC 0.0 <=0.2 /100 WBC Segs + Bands,Absolute Auto 5.43 1.64 - 7.28 K/uL Immature Grans Absolute <0.04 <=0.08 K/uL Abs Lymph Auto 2.17 1.16 - 3.51 K/uL Abs Blair Auto 0.69 0.22 - 0.87 K/uL Abs Eos Auto 0.33 0.00 - 0.42 K/uL Abs Baso Auto 0.04 0.00 - 0.15 K/uL CHEM 7 (LYTES,BUN,CREA,GLUC) Result Value Ref Range Sodium 136 135 - 145 mmol/L Potassium 3.7 3.5 - 5.0 mmol/L Chloride 106 98 - 108 mmol/L CO2 23 21 - 31 mmol/L Glucose 100 (H) 70 - 99 mg/dL BUN 13 7 - 25 mg/dL Creatinine 0.79 0.50 - 1.20 mg/dL Bun/Crea Ratio 16 Osmolality (Calculated) 285 278 - 305 mOsm/kg Anion Gap 11 7 - 17 mmol/L eGFR, CKD-EPI, Female >90 >=60 mL/min/1.73m2 PT,INR,PTT Result Value Ref Range PT 13.3 11.9 - 14.2 sec INR 1.0 0.9 - 1.1 PTT 30.7 24.0 - 34.3 sec HEMOGLOBIN A1C Result Value Ref Range Hemoglobin A1C HPLC 5.2 4.7 - 5.6 % Estimated Average Glucose 103 mg/dL LIPID PANEL W CALCULATED LDL Result Value Ref Range Cholesterol 163 <200 mg/dL Triglycerides 185 (H) <150 mg/dL HDL Cholesterol 51 >=40 mg/dL Calculated LDL Cholesterol 75 0 - 99 mg/dL Total Cholesterol/HDL Ratio 3.2 <4.5 Non HDL Cholesterol 112 <130 mg/dL BETA HCG, QUANT, BLOOD Result Value Ref Range HCG (Quant) Serum 22.5 mIU/mL [facility] 7 - ED Result Value Ref Range Sodium 138 135 - 145 mmol/L Potassium 3.8 3.5 - 5.0 mmol/L Chloride 105 98 - 108 mmol/L CO2 21 21 - 31 mmol/L Glucose 105 (H) 70 - 99 mg/dL BUN 13 7 - 25 mg/dL Creatinine 0.79 0.50 - 1.20 mg/dL Bun/Crea Ratio 16 Osmolality (Calculated) 289 278 - 305 mOsm/kg Anion Gap 16 7 - 17 mmol/L eGFR, CKD-EPI, Female >90 >=60 mL/min/1.73m2 MAGNESIUM Result Value Ref Range Magnesium 2.2 1.6 - 2.6 mg/dL Elevated TG, otherwise unremarkable Her imaging was reviewed: MRI BRAIN WITHOUT CONTRAST Final Result IMPRESSION: No evidence of acute infarct or mass effect. She was seen by Neurovascular service who felt that she suffered a TIA and will get an outpatient echo. Physical Exam: Temp: [97.5 F (36.4 C)-98.5 F (36.9 C)] 98.3 F (36.8 C) Pulse (Heart Rate): [77-98] 83 Resp Rate: [16-20] 16 BP: (122-158)/(64-109) 141/74 O2 Sat (%): [97 %-99 %] 97 % Weight: [82.6 kg (182 lb)] 82.6 kg (182 lb) Neck: no bruits Lungs clear, Cor - RR Speech: clear Disposition: Discharge The patient has met appropriate clinical criteria to be discharged from this CDU observation protocol. Reasons to return to the ED were discussed with the patient. The patient will be instructed to follow up with their primary care physician and Stroke Neurology as scheduled. Clinical Impression: 1) TIA 2) HTN I saw and evaluated the patient with DANDY. I provided a substantive portion of the care for this patient. I personally performed all aspects of the medical decision making for this encounter. I have reviewed and verified this with the DANDY so that it accurately reflects our care. I have personally spent 15 minutes or greater in discharge time which includes: final examination, preparing discharge instructions, discharge summary, prescriptions, and ambulatory referrals. [facility] Work Phone: [phone] Miscellaneous Notes* CDU Provider Note - Jax Rojas MD - 04/24/2023 10:05 AM EST This patient was appropriately risk stratified for observation level of care and placed on an observation protocol in our Clinical Decision Unit. The patient's intensity of service and severity of illness was appropriately aligned with observation level of care. Medical Decision Making Amount and/or Complexity of Data Reviewed Labs: ordered. Radiology: ordered. ECG/medicine tests: ordered. Risk OTC drugs. Prescription drug management. 33 y.o. female was appropriately risk stratified for observation level of care and was placed in EDOU for observation. This patient reports history of HTN and migraine. She reports her symptoms started on 04/21 with episodes of difficulty with word finding while at work. She also endorsed headache and some left sided weakness at that time. This patient also reports episodes of confusion yesterday while at work. Her labs were reviewed: Results for orders placed or performed during the hospital encounter of 04/23/23 CBC AND ELECTRONIC DIFF Result Value Ref Range WBC Count 8.67 3.99 - 11.19 K/uL RBC Count 4.89 3.91 - 5.04 M/uL Hemoglobin 14.5 11.4 - 15.2 g/dL Hematocrit 43.7 34.9 - 44.3 % Mean Cell Volume 89.4 79.6 - 97.7 fL Mean Cell Hgb 29.7 25.9 - 33.9 pg Mean Cell Hgb Conc 33.2 31.4 - 35.9 g/dL RBC Distribution 11.9 10.8 - 14.9 % Platelet Count 297 150 - 393 K/uL Mean Platelet Volume 10.5 8.5 - 12.2 fL DIFF STATUS Electronic Differential Segs + Bands Auto 62.6 % Immature Grans % 0.1 % Lymphocyte % Auto 25.0 % Monocyte % Auto 8.0 % Eosinophil % Auto 3.8 % Basophil % Auto 0.5 % Nucleated RBC 0.0 <=0.2 /100 WBC Segs + Bands,Absolute Auto 5.43 1.64 - 7.28 K/uL Immature Grans Absolute <0.04 <=0.08 K/uL Abs Lymph Auto 2.17 1.16 - 3.51 K/uL Abs Blair Auto 0.69 0.22 - 0.87 K/uL Abs Eos Auto 0.33 0.00 - 0.42 K/uL Abs Baso Auto 0.04 0.00 - 0.15 K/uL CHEM 7 (LYTES,BUN,CREA,GLUC) Result Value Ref Range Sodium 136 135 - 145 mmol/L Potassium 3.7 3.5 - 5.0 mmol/L Chloride 106 98 - 108 mmol/L CO2 23 21 - 31 mmol/L Glucose 100 (H) 70 - 99 mg/dL BUN 13 7 - 25 mg/dL Creatinine 0.79 0.50 - 1.20 mg/dL Bun/Crea Ratio 16 Osmolality (Calculated) 285 278 - 305 mOsm/kg Anion Gap 11 7 - 17 mmol/L eGFR, CKD-EPI, Female >90 >=60 mL/min/1.73m2 PT,INR,PTT Result Value Ref Range PT 13.3 11.9 - 14.2 sec INR 1.0 0.9 - 1.1 PTT 30.7 24.0 - 34.3 sec HEMOGLOBIN A1C Result Value Ref Range Hemoglobin A1C HPLC 5.2 4.7 - 5.6 % Estimated Average Glucose 103 mg/dL LIPID PANEL W CALCULATED LDL Result Value Ref Range Cholesterol 163 <200 mg/dL Triglycerides 185 (H) <150 mg/dL HDL Cholesterol 51 >=40 mg/dL Calculated LDL Cholesterol 75 0 - 99 mg/dL Total Cholesterol/HDL Ratio 3.2 <4.5 Non HDL Cholesterol 112 <130 mg/dL BETA HCG, QUANT, BLOOD Result Value Ref Range HCG (Quant) Serum 22.5 mIU/mL [facility] 7 - ED Result Value Ref Range Sodium 138 135 - 145 mmol/L Potassium 3.8 3.5 - 5.0 mmol/L Chloride 105 98 - 108 mmol/L CO2 21 21 - 31 mmol/L Glucose 105 (H) 70 - 99 mg/dL BUN 13 7 - 25 mg/dL Creatinine 0.79 0.50 - 1.20 mg/dL Bun/Crea Ratio 16 Osmolality (Calculated) 289 278 - 305 mOsm/kg Anion Gap 16 7 - 17 mmol/L eGFR, CKD-EPI, Female >90 >=60 mL/min/1.73m2 MAGNESIUM Result Value Ref Range Magnesium 2.2 1.6 - 2.6 mg/dL Elevated TG, otherwise unremarkable Her imaging was reviewed: MRI BRAIN WITHOUT CONTRAST Final Result IMPRESSION: No evidence of acute infarct or mass effect. She was seen by Neurovascular service who felt that she suffered a TIA and will get an outpatient echo. Physical Exam: Temp: [97.5 F (36.4 C)-98.5 F (36.9 C)] 98.3 F (36.8 C) Pulse (Heart Rate): [77-98] 83 Resp Rate: [16-20] 16 BP: (122-158)/(64-109) 141/74 O2 Sat (%): [97 %-99 %] 97 % Weight: [82.6 kg (182 lb)] 82.6 kg (182 lb) Neck: no bruits Lungs clear, Cor - RR Speech: clear Disposition: Discharge The patient has met appropriate clinical criteria to be discharged from this CDU observation protocol. Reasons to return to the ED were discussed with the patient. The patient will be instructed to follow up with their primary care physician and Stroke Neurology as scheduled. Clinical Impression: 1) TIA 2) HTN I saw and evaluated the patient with DANDY. I provided a substantive portion of the care for this patient. I personally performed all aspects of the medical decision making for this encounter. I have reviewed and verified this with the DANDY so that it accurately reflects our care. I have personally spent 15 minutes or greater in discharge time which includes: final examination, preparing discharge instructions, discharge summary, prescriptions, and ambulatory referrals. * CDU Provider Note - Danilo Mayo APRN-CHECK WEIGHER - 04/23/2023 10:00 PM EST DEPARTMENT OF EMERGENCY MEDICINE CHIEF COMPLAINT Episode of speech changes Episode of confusion headache HISTORY OF PRESENT ILLNESS Clarisa De La Cruz is a 33 y.o. female was appropriately risk stratified for observation level of careand was placed in EDOU for observation. This patient reports history of HTN and migraine. She reports her symptoms started on 04/21 with episodes of difficulty with word finding while at work. She also endorsed headache and some left sided weakness at that time. This patient also reports episodes of confusion yesterday while at work. She had called her PCP's office on and was instructed to seek further evaluation. She was seen at her local ED today and reports she had CT head,CTA which were negative for acute symptoms. Patient reports she was also given benadryl, Reglan with improvement of her symptoms. She was transferred to [facility] for further observation and evaluation of her symptoms. Patient was placed in EDOU for further observation and evaluation. Personal, surgical, family, and social history reviewed with patient. REVIEW OF SYSTEMS Review of Systems Constitutional: Negative for chills and fever. Eyes: Negative for blurred vision, double vision and photophobia. Respiratory: Negative for cough and shortness of breath. Cardiovascular: Negative for chest pain and palpitations. Gastrointestinal: Positive for nausea (now resolved). Negative for abdominal pain and vomiting. Genitourinary: Negative for dysuria and urgency. Musculoskeletal: Negative for back pain, myalgias and neck pain. Neurological: Positive for speech change (now resolved), weakness (left sided- now resolved) and headaches. Negative for dizziness and loss of consciousness. Reports episodes of confusion- now resolved All Other Systems Were Reviewed And Negative Unless Otherwise Noted PAST MEDICAL HISTORY Past Medical History: Diagnosis Date Essential hypertension, benign Migraine Osteoporosis SURGICAL HISTORY Past Surgical History: Procedure Laterality Date REMOVAL CENTRAL VENOUS ACCESS DEVICE TUNNELED W/ PORT PUMP N/A 02/16/2019 Laterality: N/A; Surgeon: Rich Santiago MD; Location: [facility] ([facility]) REMOVAL CENTRAL VENOUS ACCESS DEVICE TUNNELED W/ PORT PUMP Right 11/03/2018 Laterality: Right; Surgeon: Andrew Biggs MD; Location: [facility] ([facility]) INSERTION CVC TUNNELED W/ PORT PUMP N/A 11/03/2018 Laterality: N/A; Surgeon: Andrew Biggs MD; Location: [facility] ([facility]) INSERTION CVC TUNNELED N/A 03/30/2017 Laterality: N/A; Surgeon: Ayde Kearney MD; Location: [facility] ([facility]) MEDICATIONS GIVEN IN THE ED Medications - No data to display ALLERGIES Allergies Allergen Reactions Adhesive [*Adhesive Tape] Tegaderm Latex Hives Sulfa Antibiotics Hives No known or endorsed food or drug allergies per patient. FAMILY HISTORY Family History Problem Relation Age of Onset Hypertension Father Other - Specify Father Dementia No known problems Mother No known problems Sister No known problems Sister SOCIAL HISTORY Social History Socioeconomic History Marital status: Spouse name: Not on file Number of children: Not on file Years of education: Not on file Highest education level: Not on file Occupational History Not on file Tobacco Use Smoking status: Never Smokeless tobacco: Never Substance and Sexual Activity Alcohol use: No Drug use: No Sexual activity: Yes Partners: Male control/protection: Pill Other Topics Concern Not on file Social History Narrative Not on file Social Determinants of Health Financial Resource Strain: Not on file Food Insecurity: Not on file Transportation Needs: Not on file Physical Activity: Not on file Stress: Not on file Social Connections: Not on file Intimate Partner Violence: Not on file Housing Stability: Not on file PHYSICAL EXAM BP 135/83 Pulse 77 Temp 98.2 F (36.8 C) (Oral) Resp 16 Ht 1.727 m (5' 8) SpO2 99% BMI 26.17 kg/m Smoking Status Never Physical Exam Constitutional: Appearance: Normal appearance. HENT: Head: Normocephalic and atraumatic. Nose: Nose normal. Mouth/Throat: Mouth: Mucous membranes are moist. Eyes: Extraocular Movements: Extraocular movements intact. Conjunctiva/sclera: Conjunctivae normal. Pupils: Pupils are equal, round, and reactive to light. Cardiovascular: Rate and Rhythm: Normal rate and regular rhythm. Pulses: Normal pulses. Heart sounds: Normal heart sounds. Pulmonary: Effort: Pulmonary effort is normal. No respiratory distress. Breath sounds: Normal breath sounds. Abdominal: General: Bowel sounds are normal. Palpations: Abdomen is soft. Tenderness: There is no abdominal tenderness. There is no right CVA tenderness, left CVA tendernessor guarding. Musculoskeletal: General: Normal range of motion. Cervical back: Normal range of motion and neck supple. Skin: General: Skin is warm and dry. Neurological: General: No focal deficit present. Mental Status: She is alert and oriented to person, place, and time. Sensory: No sensory deficit. Motor: No weakness. Gait: Gait normal. Comments: Patient is AO x 3 speech clear and appropriate. Moves all extremities, ambulates with steady gait. No sensory or motor deficits noted. Psychiatric: Mood and Affect: Mood normal. Behavior: Behavior normal. EDOU COURSE & MEDICAL DECISION MAKING Risk stratification appropriate for observation level of care. Patient was placed in EDOU for observation. Patient age greater than 64y/o? NO Concern for TIA vs CVA vs complex migraine I reviewed the patients' medical records and nursing notes and noted their allergies, past medical history, and previous visits. The patient received the following interventions in the ED to date: Results for orders placed or performed during the hospital encounter of 04/23/23 CBC AND ELECTRONIC DIFF Result Value Ref Range WBC Count 8.67 3.99 - 11.19 K/uL RBC Count 4.89 3.91 - 5.04 M/uL Hemoglobin 14.5 11.4 - 15.2 g/dL Hematocrit 43.7 34.9 - 44.3 % Mean Cell Volume 89.4 79.6 - 97.7 fL Mean Cell Hgb 29.7 25.9 - 33.9 pg Mean Cell Hgb Conc 33.2 31.4 - 35.9 g/dL RBC Distribution 11.9 10.8 - 14.9 % Platelet Count 297 150 - 393 K/uL Mean Platelet Volume 10.5 8.5 - 12.2 fL DIFF STATUS Electronic Differential Segs + Bands Auto 62.6 % Immature Grans % 0.1 % Lymphocyte % Auto 25.0 % Monocyte % Auto 8.0 % Eosinophil % Auto 3.8 % Basophil % Auto 0.5 % Nucleated RBC 0.0 <=0.2 /100 WBC Segs + Bands,Absolute Auto 5.43 1.64 - 7.28 K/uL Immature Grans Absolute <0.04 <=0.08 K/uL Abs Lymph Auto 2.17 1.16 - 3.51 K/uL Abs Blair Auto 0.69 0.22 - 0.87 K/uL Abs Eos Auto 0.33 0.00 - 0.42 K/uL Abs Baso Auto 0.04 0.00 - 0.15 K/uL MRI BRAIN WITHOUT CONTRAST (Results Pending) We will continue with neuro checks and proceed with MRI brain. Awaiting further recommendations perneurovascular. While in the EDOU we will continue to check, monitor and reassess patient and alter our plan as clinically appropriate. I will discuss with the EDOU attending physician. This is a non-shared visit on 04/23/2023. Medical Decision Making Amount and/or Complexity of Data Reviewed Labs: ordered. Radiology: ordered. ECG/medicine tests: ordered. Risk OTC drugs. Prescription drug management. Electronically signed by: VERNELL Morgan, 04/23/2023 10:00 PM documented in this encounterOSU [facility] [id number] Hospital Discharge instructions* Discharge Instructions* VERNELL Pina - 04/24/2023 10:02 AM EST -Call to schedule follow-up appointment with [facility] or Neurologist closer to home at soonestavailable appointment. -Call to schedule outpatient Echocardiogram at [facility] or closer to home. Your primary care provider may need to place this order if not accepted at your local hospital. -Start Aspirin 81mg daily. -Follow-up with your Neurologist regarding incidental finding of arachnoid cyst noted on MRI brain.This will need to be monitored. -Return to the Emergency Department if any worsening symptoms or worrisome symptoms as outlined in your discharge paperwork. CLINICAL ELECTRONICS INSPECTOR If you need any further assistance with scheduling follow up care, please call the Clinical Ged Preparation Teacher at . * Attachments The following attachments cannot be sent through Care Everywhere. * Transient Ischemic Attack: General Info (Barbadian) * Arachnoid Cysts: General Info (Barbadian) [facility] History of Present illness Narrative* Sneha Toth MD - 04/24/2023 9:39 AM EST Brief Neurovascular Sign off Note 33 yo F with PMH of POTS and migraine presented with transient confusion and aphasia in the settingof migraine. CTH/A without acute findings at OSH. MRI brain negative for stroke. LDL 75. A1c 5.2. Concern for TIA vs migraine. NIHSS 04/24/2023 Provider NIH Stroke Scale NIH Interval (Provider): admission NIH Level of Conciousness (Provider): 0 NIH LOC Questions (Provider): 0 NIH LOC Commands (Provider): 0 NIH Best Gaze (Provider): 0 NIH Visual (Provider): 0 NIH Facial Palsy (Provider): 0 NIH Left Arm Motor (Provider): 0 NIH Right Arm Motor (Provider): 0 NIH Left Leg Motor (Provider): 0 NIH Right Leg Motor (Provider): 0 NIH Limb Ataxia (Provider): 0 NIH Sensory (Provider): 0 NIH Best Language (Provider): 0 NIH Dysarthria (Provider): 0 NIH Extinction and Inattention (Provider): 0 NIH Total Score (Provider): 0 - Start aspirin 81mg daily - Recommend outpatient echo locally for completion of TIA workup - Local neurology follow up in [place] No further inpatient workup at this time. We will sign off. Signed, Sneha Toth MD PGY-4 Department of Neurology documented in this encounterOS[facility] Emergency department Note* Winnie Esposito RN - 04/24/2023 6:34 AM EST Received report and reviewed patient's chart. Plan of care discussed with EDOU Attending and Midlevel Provider. This CM will remain available to assist with further patient needs. Winnie MARTINEZ Emergency Department Clinical Ged Preparation Teacher [id number] Available via secure chat [facility] Emergency department Note* Winnie Esposito RN - 04/24/2023 6:34 AM EST Received report and reviewed patient's chart. Plan of care discussed with EDOU Attending and Midlevel Provider. This CM will remain available to assist with further patient needs. Winnie MARTINEZ Emergency Department Clinical Ged Preparation Teacher [id number] Available via secure chat * Julio Bunn MD - 04/23/2023 6:42 PM EST dEPARTMENT of Emergency Medicine CHIEF COMPLAINT No chief complaint on file. ESSIE De La Cruz is a 33 y.o. female who presents with history of HTN, POTS complains of confusion and difficulty speaking three days ago. Here from OSH with concern for TIA. There are no aggravating or relieving factors. The symptoms are associated with a headache like previous migraines in the past. REVIEW OF SYSTEMS Review of Systems PAST MEDICAL HISTORY Past Medical History: Diagnosis Date Essential hypertension, benign Migraine Osteoporosis SURGICAL HISTORY Past Surgical History: Procedure Laterality Date REMOVAL CENTRAL VENOUS ACCESS DEVICE TUNNELED W/ PORT PUMP N/A 02/16/2019 Laterality: N/A; Surgeon: Rich Santiago MD; Location: [facility] INTERVENTIONAL RADIOLOGY (VIR) REMOVAL CENTRAL VENOUS ACCESS DEVICE TUNNELED W/ PORT PUMP Right 11/03/2018 Laterality: Right; Surgeon: Andrew Biggs MD; Location: [facility] INTERVENTIONAL RADIOLOGY (VIR) INSERTION CVC TUNNELED W/ PORT PUMP N/A 11/03/2018 Laterality: N/A; Surgeon: Andrew Biggs MD; Location: [facility] INTERVENTIONAL RADIOLOGY (VIR) INSERTION CVC TUNNELED N/A 03/30/2017 Laterality: N/A; Surgeon: Ayde Kearney MD; Location: [facility] INTERVENTIONAL RADIOLOGY (VIR) CURRENT MEDICATIONS No current facility-administered medications for this encounter. Current Outpatient Medications Medication Sig Dispense Refill alteplase 2 MG Recon Soln 2 mg by Intracatheter route once for 1 dose. 2 mg 0 Ascorbic Acid (VITAMIN C) 250 MG Chew Tab Chew 250 mg daily. Ca Phosphate-Cholecalciferol (CALCIUM/VITAMIN D3 GUMMIES PO) Take 50 mg by mouth daily. COENZYME Q-10 PO take by mouth.. Magnesium 400 MG Tab Take 1 tablet by mouth daily. 30 tablet 11 Multiple Vitamin (MULTIVITAMIN) Cap take 1 capsule by mouth daily.. Multiple Vitamins-Minerals (IMMUNE SUPPORT) Chew Tab Chew 250 mg daily. nadolol 20 MG Tab tablet Take 1/2 tablet daily for three days then 1/2 tablet twice daily for threetimes then 1/2 tablets three times daily. (Patient not taking: Reported on 10/04/2018) 45 tablet 3 naproxen 500 MG Tab take 1 tablet by mouth See admin instructions.. (Patient not taking: Reported on 10/04/2018) 16 tablet 11 Vit-Fe Fumarate-FA ( 19) Chew Tab Chew. Vitafusion prochlorperazine 5 MG Tab take 1 tablet by mouth every 8 hours as needed for Other.. (Patient not taking: Reported on 10/04/2018) 30 tablet 11 pyridostigmine 60 MG Tab Take 1 tablet by mouth 3 times daily. Spread throughout the day (Patient not taking: Reported on 10/04/2018) 90 tablet 11 Riboflavin 400 MG Tab Take 400 mg by mouth daily. 30 tablet 11 sodium chloride 0.9%, MB PLUS, 0.9% Solution 1,000 mL by Intravenous route twice a week. 8000 mL 11 Sodium Chloride Flush (NORMAL SALINE FLUSH) 0.9% Solution 1,000 mL by Intravenous route every 14 days. 6000 mL 3 ALLERGIES Allergies Allergen Reactions Adhesive [*Adhesive Tape] Tegaderm Latex Hives Sulfa Antibiotics Hives FAMILY HISTORY Family History Problem Relation Age of Onset Hypertension Father Other - Specify Father Dementia No known problems Mother No known problems Sister No known problems Sister SOCIAL HISTORY Social History Socioeconomic History Marital status: Spouse name: Not on file Number of children: Not on file Years of education: Not on file Highest education level: Not on file Occupational History Not on file Tobacco Use Smoking status: Never Smokeless tobacco: Never Substance and Sexual Activity Alcohol use: No Drug use: No Sexual activity: Yes Partners: Male control/protection: Pill Other Topics Concern Not on file Social History Narrative Not on file Social Determinants of Health Financial Resource Strain: Not on file Food Insecurity: Not on file Transportation Needs: Not on file Physical Activity: Not on file Stress: Not on file Social Connections: Not on file Intimate Partner Violence: Not on file Housing Stability: Not on file PHYSICAL EXAM BP 142/86 (BP Location: Left arm, BP Position: Lying) Pulse 98 Temp 98.5 F (36.9 C) Resp 18 Ht 1.727 m (5' 8) SpO2 99% BMI 26.17 kg/m Smoking Status Never Physical Exam Constitutional: Appearance: She is well-developed. HENT: Head: Normocephalic and atraumatic. Eyes: Pupils: Pupils are equal, round, and reactive to light. Cardiovascular: Rate and Rhythm: Normal rate and regular rhythm. Pulmonary: Effort: Pulmonary effort is normal. No respiratory distress. Breath sounds: Normal breath sounds. Abdominal: Palpations: Abdomen is soft. There is no mass. Tenderness: There is no abdominal tenderness. There is no guarding or rebound. Skin: General: Skin is warm and dry. Neurological: Mental Status: She is alert and oriented to person, place, and time. ED COURSE & MEDICAL DECISION MAKING Medical Decision Making TIA vs CVA vs complex migraine, plan imaging, neurovascular contult On 04/23/2023 I saw and examined the patient. I discussed the history and examination with the resident and agree with the plan of care. Amount and/or Complexity of Data Reviewed Independent Historian: EMS External Data Reviewed: radiology and notes. Labs: ordered. Radiology: ordered. ECG/medicine tests: ordered. Julio Bunn MD 04/23/23 1845 * Lexie Mendoza MD - 04/23/2023 6:22 PM EST dEPARTMENT of Emergency Medicine CHIEF COMPLAINT No chief complaint on file. HPI Clarisa De La Cruz is a 33 y.o. female with past medical history significant for HTN, migraines and Weaver disease who presents with confusion and aphasia that is now resolved. Patient reports she was was in her normal state of health until three days ago when she developed aheadache, a few hours after headache patient reported to have confusion. 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 She also reports aphasia, not able to articulate the right word. Patient reports this lasted afternoon. She also reports weakness at the time. She woke up Tuesday morning with improvement in her speech but still had confusion, states she wouldgo to lock door but it already would be unlocked which she did just before hand. Reports that the confusion continued until seen at OSH. At OSH patient was given migraine cocktail consisting of Toradol, Reglan and benadryl. CT head and CTA obtained were negative for any acute findings. Lab work up included CBC, Chem, EKG were negative. Patient sent here for TIA work up and neurovascular work up. REVIEW OF SYSTEMS Review of Systems Neurological: Positive for speech difficulty, weakness and headaches. Psychiatric/Behavioral: Positive for confusion. All other systems reviewed and are negative. PAST MEDICAL HISTORY Past Medical History: Diagnosis Date Essential hypertension, benign Migraine Osteoporosis SURGICAL HISTORY Past Surgical History: Procedure Laterality Date REMOVAL CENTRAL VENOUS ACCESS DEVICE TUNNELED W/ PORT PUMP N/A 02/16/2019 Laterality: N/A; Surgeon: Rich Santiago MD; Location: [facility] INTERVENTIONAL RADIOLOGY (VIR) REMOVAL CENTRAL VENOUS ACCESS DEVICE TUNNELED W/ PORT PUMP Right 11/03/2018 Laterality: Right; Surgeon: Andrew Biggs MD; Location: [facility] INTERVENTIONAL RADIOLOGY (VIR) INSERTION CVC TUNNELED W/ PORT PUMP N/A 11/03/2018 Laterality: N/A; Surgeon: Andrew Biggs MD; Location: [facility] INTERVENTIONAL RADIOLOGY (VIR) INSERTION CVC TUNNELED N/A 03/30/2017 Laterality: N/A; Surgeon: Ayde Kearney MD; Location: [facility] INTERVENTIONAL RADIOLOGY (VIR) CURRENT MEDICATIONS No current facility-administered medications for this encounter. Current Outpatient Medications Medication Sig Dispense Refill alteplase 2 MG Recon Soln 2 mg by Intracatheter route once for 1 dose. 2 mg 0 Ascorbic Acid (VITAMIN C) 250 MG Chew Tab Chew 250 mg daily. Ca Phosphate-Cholecalciferol (CALCIUM/VITAMIN D3 GUMMIES PO) Take 50 mg by mouth daily. COENZYME Q-10 PO take by mouth.. Magnesium 400 MG Tab Take 1 tablet by mouth daily. 30 tablet 11 Multiple Vitamin (MULTIVITAMIN) Cap take 1 capsule by mouth daily.. Multiple Vitamins-Minerals (IMMUNE SUPPORT) Chew Tab Chew 250 mg daily. nadolol 20 MG Tab tablet Take 1/2 tablet daily for three days then 1/2 tablet twice daily for threetimes then 1/2 tablets three times daily. (Patient not taking: Reported on 10/04/2018) 45 tablet 3 naproxen 500 MG Tab take 1 tablet by mouth See admin instructions.. (Patient not taking: Reported on 10/04/2018) 16 tablet 11 Vit-Fe Fumarate-FA ( 19) Chew Tab Chew. Vitafusion prochlorperazine 5 MG Tab take 1 tablet by mouth every 8 hours as needed for Other.. (Patient not taking: Reported on 10/04/2018) 30 tablet 11 pyridostigmine 60 MG Tab Take 1 tablet by mouth 3 times daily. Spread throughout the day (Patient not taking: Reported on 10/04/2018) 90 tablet 11 Riboflavin 400 MG Tab Take 400 mg by mouth daily. 30 tablet 11 sodium chloride 0.9%, MB PLUS, 0.9% Solution 1,000 mL by Intravenous route twice a week. 8000 mL 11 Sodium Chloride Flush (NORMAL SALINE FLUSH) 0.9% Solution 1,000 mL by Intravenous route every 14 days. 6000 mL 3 ALLERGIES Allergies Allergen Reactions Adhesive [*Adhesive Tape] Tegaderm Latex Hives Sulfa Antibiotics Hives FAMILY HISTORY Family History Problem Relation Age of Onset Hypertension Father Other - Specify Father Dementia No known problems Mother No known problems Sister No known problems Sister SOCIAL HISTORY Social History Socioeconomic History Marital status: Spouse name: Not on file Number of children: Not on file Years of education: Not on file Highest education level: Not on file Occupational History Not on file Tobacco Use Smoking status: Never Smokeless tobacco: Never Substance and Sexual Activity Alcohol use: No Drug use: No Sexual activity: Yes Partners: Male control/protection: Pill Other Topics Concern Not on file Social History Narrative Not on file Social Determinants of Health Financial Resource Strain: Not on file Food Insecurity: Not on file Transportation Needs: Not on file Physical Activity: Not on file Stress: Not on file Social Connections: Not on file Intimate Partner Violence: Not on file Housing Stability: Not on file PHYSICAL EXAM BP 142/86 (BP Location: Left arm, BP Position: Lying) Pulse 98 Temp 98.5 F (36.9 C) Resp 18 Ht 1.727 m (5' 8) SpO2 99% BMI 26.17 kg/m Smoking Status Never Physical Exam Vitals and nursing note reviewed. Constitutional: General: She is not in acute distress. Appearance: Normal appearance. She is normal weight. She is not ill-appearing or toxic-appearing. HENT: Head: Normocephalic and atraumatic. Nose: Nose normal. Mouth/Throat: Mouth: Mucous membranes are moist. Pharynx: Oropharynx is clear. Eyes: Extraocular Movements: Extraocular movements intact. Conjunctiva/sclera: Conjunctivae normal. Pupils: Pupils are equal, round, and reactive to light. Cardiovascular: Rate and Rhythm: Normal rate and regular rhythm. Pulses: Normal pulses. Heart sounds: Normal heart sounds. Pulmonary: Effort: Pulmonary effort is normal. Breath sounds: Normal breath sounds. Abdominal: General: Abdomen is flat. Palpations: Abdomen is soft. Musculoskeletal: General: Normal range of motion. Skin: General: Skin is warm and dry. Capillary Refill: Capillary refill takes less than 2 seconds. Neurological: General: No focal deficit present. Mental Status: She is alert and oriented to person, place, and time. Mental status is at baseline. Cranial Nerves: Cranial nerves 2-12 are intact. No cranial nerve deficit, dysarthria or facial asymmetry. Sensory: Sensation is intact. No sensory deficit. Motor: Motor function is intact. No weakness or tremor. Coordination: Coordination is intact. Ojmuvs-Klfa-Grpvzl Test normal. Comments: Modified NIH 0 ED COURSE & MEDICAL DECISION MAKING Assessment: Clarisa De La Cruz is a 33 y.o. female with past medical history significant for HTN, migraines and Weaver disease who presents with confusion and aphasia that is now resolved. Ddx: CVA, TIA, complex migraine Initial Plan and ED course: - CBC, Chem 7 - EKG - Neurovascular consult - Likely admission to observation for MRI and Echo in AM. Impression: Confusion and aphasia Disposition: Pending neurovascular recommendations but likely to observation for further TIA work up. Medical Decision Making CT Head and CTA unremarkable from OSH. Patient back to baseline after migraine cocktail at OSH but TIA cannot be ruled out without MRI and echo. Will likely admit to observation for further imaging pending neurovascular recommendations. Amount and/or Complexity of Data Reviewed Labs: ordered. ECG/medicine tests: ordered. Lexie Mendoza MD Resident 04/23/232026 * Francisca Urrutia RN - 04/23/2023 4:27 PM EST Patient present to the ED for new confusion, headaches and difficulty speaking. Went to OSH where they did a CT scan, lab work, chest xray, and EKG and was told she may be having TIAs, and to come to [facility] for further evaluation. 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 Reports when speaking in class, words were coming out but nothing made sense and that she got confused trying to unlock her classroom door. [facility] Progress note* [facility] Provider Note - VERNELL Morgan - 04/23/2023 10:00 PM EST DEPARTMENT OF EMERGENCY MEDICINE CHIEF COMPLAINT Episode of speech changes Episode of confusion headache HISTORY OF PRESENT ILLNESS Clarisa De La Cruz is a 33 y.o. female was appropriately risk stratified for observation level of careand was placed in EDOU for observation. This patient reports history of HTN and migraine. She reports her symptoms started on 04/21 with episodes of difficulty with word finding while at work. She also endorsed headache and some left sided weakness at that time. This patient also reports episodes of confusion yesterday while at work. She had called her PCP's office on and was instructed to seek further evaluation. She was seen at her local ED today and reports she had CT head,CTA which were negative for acute symptoms. Patient reports she was also given benadryl, Reglan with improvement of her symptoms. She was transferred to [facility] for further observation and evaluation of her symptoms. Patient was placed in EDOU for further observation and evaluation. Personal, surgical, family, and social history reviewed with patient. REVIEW OF SYSTEMS Review of Systems Constitutional: Negative for chills and fever. Eyes: Negative for blurred vision, double vision and photophobia. Respiratory: Negative for cough and shortness of breath. Cardiovascular: Negative for chest pain and palpitations. Gastrointestinal: Positive for nausea (now resolved). Negative for abdominal pain and vomiting. Genitourinary: Negative for dysuria and urgency. Musculoskeletal: Negative for back pain, myalgias and neck pain. Neurological: Positive for speech change (now resolved), weakness (left sided- now resolved) and headaches. Negative for dizziness and loss of consciousness. Reports episodes of confusion- now resolved All Other Systems Were Reviewed And Negative Unless Otherwise Noted PAST MEDICAL HISTORY Past Medical History: Diagnosis Date Essential hypertension, benign Migraine Osteoporosis SURGICAL HISTORY Past Surgical History: Procedure Laterality Date REMOVAL CENTRAL VENOUS ACCESS DEVICE TUNNELED W/ PORT PUMP N/A 02/16/2019 Laterality: N/A; Surgeon: Rich Santiago MD; Location: [facility] INTERVENTIONAL RADIOLOGY ([facility]) REMOVAL CENTRAL VENOUS ACCESS DEVICE TUNNELED W/ PORT PUMP Right 11/03/2018 Laterality: Right; Surgeon: Andrew Biggs MD; Location: [facility] INTERVENTIONAL RADIOLOGY ([facility]) INSERTION CVC TUNNELED W/ PORT PUMP N/A 11/03/2018 Laterality: N/A; Surgeon: Andrew Biggs MD; Location: [facility] INTERVENTIONAL RADIOLOGY ([facility]) INSERTION CVC TUNNELED N/A 03/30/2017 Laterality: N/A; Surgeon: Ayde Kearney MD; Location: [facility] INTERVENTIONAL RADIOLOGY ([facility]) MEDICATIONS GIVEN IN THE ED Medications - No data to display ALLERGIES Allergies Allergen Reactions Adhesive [*Adhesive Tape] Tegaderm Latex Hives Sulfa Antibiotics Hives No known or endorsed food or drug allergies per patient. FAMILY HISTORY Family History Problem Relation Age of Onset Hypertension Father Other - Specify Father Dementia No known problems Mother No known problems Sister No known problems Sister SOCIAL HISTORY Social History Socioeconomic History Marital status: Spouse name: Not on file Number of children: Not on file Years of education: Not on file Highest education level: Not on file Occupational History Not on file Tobacco Use Smoking status: Never Smokeless tobacco: Never Substance and Sexual Activity Alcohol use: No Drug use: No Sexual activity: Yes Partners: Male control/protection: Pill Other Topics Concern Not on file Social History Narrative Not on file Social Determinants of Health Financial Resource Strain: Not on file Food Insecurity: Not on file Transportation Needs: Not on file Physical Activity: Not on file Stress: Not on file Social Connections: Not on file Intimate Partner Violence: Not on file Housing Stability: Not on file PHYSICAL EXAM BP 135/83 Pulse 77 Temp 98.2 F (36.8 C) (Oral) Resp 16 Ht 1.727 m (5' 8) SpO2 99% BMI 26.17 kg/m Smoking Status Never Physical Exam Constitutional: Appearance: Normal appearance. HENT: Head: Normocephalic and atraumatic. Nose: Nose normal. Mouth/Throat: Mouth: Mucous membranes are moist. Eyes: Extraocular Movements: Extraocular movements intact. Conjunctiva/sclera: Conjunctivae normal. Pupils: Pupils are equal, round, and reactive to light. Cardiovascular: Rate and Rhythm: Normal rate and regular rhythm. Pulses: Normal pulses. Heart sounds: Normal heart sounds. Pulmonary: Effort: Pulmonary effort is normal. No respiratory distress. Breath sounds: Normal breath sounds. Abdominal: General: Bowel sounds are normal. Palpations: Abdomen is soft. Tenderness: There is no abdominal tenderness. There is no right CVA tenderness, left CVA tendernessor guarding. Musculoskeletal: General: Normal range of motion. Cervical back: Normal range of motion and neck supple. Skin: General: Skin is warm and dry. Neurological: General: No focal deficit present. Mental Status: She is alert and oriented to person, place, and time. Sensory: No sensory deficit. Motor: No weakness. Gait: Gait normal. Comments: Patient is AO x 3 speech clear and appropriate. Moves all extremities, ambulates with steady gait. No sensory or motor deficits noted. Psychiatric: Mood and Affect: Mood normal. Behavior: Behavior normal. EDOU COURSE & MEDICAL DECISION MAKING Risk stratification appropriate for observation level of care. Patient was placed in EDOU for observation. Patient age greater than 64y/o? NO Concern for TIA vs CVA vs complex migraine I reviewed the patients' medical records and nursing notes and noted their allergies, past medical history, and previous visits. The patient received the following interventions in the ED to date: Results for orders placed or performed during the hospital encounter of 04/23/23 CBC AND ELECTRONIC DIFF Result Value Ref Range WBC Count 8.67 3.99 - 11.19 K/uL RBC Count 4.89 3.91 - 5.04 M/uL Hemoglobin 14.5 11.4 - 15.2 g/dL Hematocrit 43.7 34.9 - 44.3 % Mean Cell Volume 89.4 79.6 - 97.7 fL Mean Cell Hgb 29.7 25.9 - 33.9 pg Mean Cell Hgb Conc 33.2 31.4 - 35.9 g/dL RBC Distribution 11.9 10.8 - 14.9 % Platelet Count 297 150 - 393 K/uL Mean Platelet Volume 10.5 8.5 - 12.2 fL DIFF STATUS Electronic Differential Segs + Bands Auto 62.6 % Immature Grans % 0.1 % Lymphocyte % Auto 25.0 % Monocyte % Auto 8.0 % Eosinophil % Auto 3.8 % Basophil % Auto 0.5 % Nucleated RBC 0.0 <=0.2 /100 WBC Segs + Bands,Absolute Auto 5.43 1.64 - 7.28 K/uL Immature Grans Absolute <0.04 <=0.08 K/uL Abs Lymph Auto 2.17 1.16 - 3.51 K/uL Abs Blair Auto 0.69 0.22 - 0.87 K/uL Abs Eos Auto 0.33 0.00 - 0.42 K/uL Abs Baso Auto 0.04 0.00 - 0.15 K/uL MRI BRAIN WITHOUT CONTRAST (Results Pending) We will continue with neuro checks and proceed with MRI brain. Awaiting further recommendations perneurovascular. While in the EDOU we will continue to check, monitor and reassess patient and alter our plan as clinically appropriate. I will discuss with the EDOU attending physician. This is a non-shared visit on 04/23/2023. Medical Decision Making Amount and/or Complexity of Data Reviewed Labs: ordered. Radiology: ordered. ECG/medicine tests: ordered. Risk OTC drugs. Prescription drug management. Electronically signed by: VERNELL Morgan, 04/23/2023 10:00 PM [facility] Work Phone: 1(163) 382-777812-16-2023 Physician Emergency department Note* Julio Bunn MD - 04/23/2023 6:42 PM EST dEPARTMENT of Emergency Medicine CHIEF COMPLAINT No chief complaint on file. HPI Clarisa De La Cruz is a 33 y.o. female who presents with history of HTN, POTS complains of confusion and difficulty speaking three days ago. Here from OSH with concern for TIA. There are no aggravating or relieving factors. The symptoms are associated with a headache like previous migraines in the past. REVIEW OF SYSTEMS Review of Systems PAST MEDICAL HISTORY Past Medical History: Diagnosis Date Essential hypertension, benign Migraine Osteoporosis SURGICAL HISTORY Past Surgical History: Procedure Laterality Date REMOVAL CENTRAL VENOUS ACCESS DEVICE TUNNELED W/ PORT PUMP N/A 02/16/2019 Laterality: N/A; Surgeon: Rich Santiago MD; Location: [facility] INTER[facility]AL RADIOLOGY ([facility]) REMOVAL CENTRAL VENOUS ACCESS DEVICE TUNNELED W/ PORT PUMP Right 11/03/2018 Laterality: Right; Surgeon: Andrew Biggs MD; Location: [facility] INTER[facility]IONAL RADIOLOGY ([facility]) INSERTION CVC TUNNELED W/ PORT PUMP N/A 11/03/2018 Laterality: N/A; Surgeon: Andrew Biggs MD; Location: [facility] INTERVENTIONAL RADIOLOGY ([facility]) INSERTION CVC TUNNELED N/A 03/30/2017 Laterality: N/A; Surgeon: Ayde Kearney MD; Location: [facility] INTERVENTIONAL RADIOLOGY ([facility]) CURRENT MEDICATIONS No current facility-administered medications for this encounter. Current Outpatient Medications Medication Sig Dispense Refill alteplase 2 MG Recon Soln 2 mg by Intracatheter route once for 1 dose. 2 mg 0 Ascorbic Acid (VITAMIN C) 250 MG Chew Tab Chew 250 mg daily. Ca Phosphate-Cholecalciferol (CALCIUM/VITAMIN D3 GUMMIES PO) Take 50 mg by mouth daily. COENZYME Q-10 PO take by mouth.. Magnesium 400 MG Tab Take 1 tablet by mouth daily. 30 tablet 11 Multiple Vitamin (MULTIVITAMIN) Cap take 1 capsule by mouth daily.. Multiple Vitamins-Minerals (IMMUNE SUPPORT) Chew Tab Chew 250 mg daily. nadolol 20 MG Tab tablet Take 1/2 tablet daily for three days then 1/2 tablet twice daily for threetimes then 1/2 tablets three times daily. (Patient not taking: Reported on 10/04/2018) 45 tablet 3 naproxen 500 MG Tab take 1 tablet by mouth See admin instructions.. (Patient not taking: Reported on 10/04/2018) 16 tablet 11 Vit-Fe Fumarate-FA ( 19) Chew Tab Chew. Vitafusion prochlorperazine 5 MG Tab take 1 tablet by mouth every 8 hours as needed for Other.. (Patient not taking: Reported on 10/04/2018) 30 tablet 11 pyridostigmine 60 MG Tab Take 1 tablet by mouth 3 times daily. Spread throughout the day (Patient not taking: Reported on 10/04/2018) 90 tablet 11 Riboflavin 400 MG Tab Take 400 mg by mouth daily. 30 tablet 11 sodium chloride 0.9%, MB PLUS, 0.9% Solution 1,000 mL by Intravenous route twice a week. 8000 mL 11 Sodium Chloride Flush (NORMAL SALINE FLUSH) 0.9% Solution 1,000 mL by Intravenous route every 14 days. 6000 mL 3 ALLERGIES Allergies Allergen Reactions Adhesive [*Adhesive Tape] Tegaderm Latex Hives Sulfa Antibiotics Hives FAMILY HISTORY Family History Problem Relation Age of Onset Hypertension Father Other - Specify Father Dementia No known problems Mother No known problems Sister No known problems Sister SOCIAL HISTORY Social History Socioeconomic History Marital status: Spouse name: Not on file Number of children: Not on file Years of education: Not on file Highest education level: Not on file Occupational History Not on file Tobacco Use Smoking status: Never Smokeless tobacco: Never Substance and Sexual Activity Alcohol use: No Drug use: No Sexual activity: Yes Partners: Male control/protection: Pill Other Topics Concern Not on file Social History Narrative Not on file Social Determinants of Health Financial Resource Strain: Not on file Food Insecurity: Not on file Transportation Needs: Not on file Physical Activity: Not on file Stress: Not on file Social Connections: Not on file Intimate Partner Violence: Not on file Housing Stability: Not on file PHYSICAL EXAM BP 142/86 (BP Location: Left arm, BP Position: Lying) Pulse 98 Temp 98.5 F (36.9 C) Resp 18 Ht 1.727 m (5' 8) SpO2 99% BMI 26.17 kg/m Smoking Status Never Physical Exam Constitutional: Appearance: She is well-developed. HENT: Head: Normocephalic and atraumatic. Eyes: Pupils: Pupils are equal, round, and reactive to light. Cardiovascular: Rate and Rhythm: Normal rate and regular rhythm. Pulmonary: Effort: Pulmonary effort is normal. No respiratory distress. Breath sounds: Normal breath sounds. Abdominal: Palpations: Abdomen is soft. There is no mass. Tenderness: There is no abdominal tenderness. There is no guarding or rebound. Skin: General: Skin is warm and dry. Neurological: Mental Status: She is alert and oriented to person, place, and time. ED COURSE & MEDICAL DECISION MAKING Medical Decision Making TIA vs CVA vs complex migraine, plan imaging, neurovascular contult On 04/23/2023 I saw and examined the patient. I discussed the history and examination with the resident and agree with the plan of care. Amount and/or Complexity of Data Reviewed Independent Historian: EMS External Data Reviewed: radiology and notes. Labs: ordered. Radiology: ordered. ECG/medicine tests: ordered. Julio Bunn MD 04/23/23 4049 [facility] Work Phone: [phone] Physician Emergency department Note* Lexie Mendoza MD - 04/23/2023 6:22 PM EST dEPARTMENT of Emergency Medicine CHIEF COMPLAINT No chief complaint on file. HPI Clarisa De La Cruz is a 33 y.o. female with past medical history significant for HTN, migraines and Weaver disease who presents with confusion and aphasia that is now resolved. Patient reports she was was in her normal state of health until three days ago when she developed aheadache, a few hours after headache patient reported to have confusion. 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 She also reports aphasia, not able to articulate the right word. Patient reports this lasted afternoon. She also reports weakness at the time. She woke up Tuesday morning with improvement in her speech but still had confusion, states she wouldgo to lock door but it already would be unlocked which she did just before hand. Reports that the confusion continued until seen at OSH. At OSH patient was given migraine cocktail consisting of Toradol, Reglan and benadryl. CT head and CTA obtained were negative for any acute findings. Lab work up included CBC, Chem, EKG were negative. Patient sent here for TIA work up and neurovascular work up. REVIEW OF SYSTEMS Review of Systems Neurological: Positive for speech difficulty, weakness and headaches. Psychiatric/Behavioral: Positive for confusion. All other systems reviewed and are negative. PAST MEDICAL HISTORY Past Medical History: Diagnosis Date Essential hypertension, benign Migraine Osteoporosis SURGICAL HISTORY Past Surgical History: Procedure Laterality Date REMOVAL CENTRAL VENOUS ACCESS DEVICE TUNNELED W/ PORT PUMP N/A 02/16/2019 Laterality: N/A; Surgeon: Rich Santiago MD; Location: [facility] RAD[facility]OLOGY ([facility]) REMOVAL CENTRAL VENOUS ACCESS DEVICE TUNNELED W/ PORT PUMP Right 11/03/2018 Laterality: Right; Surgeon: Andrew Biggs MD; Location: [facility] INTER[facility]AL RADIOLOGY ([facility]) INSERTION CVC TUNNELED W/ PORT PUMP N/A 11/03/2018 Laterality: N/A; Surgeon: Andrew Biggs MD; Location: [facility] INTER[facility]AL RAD[facility]OLOGY ([facility]) INSERTION CVC TUNNELED N/A 03/30/2017 Laterality: N/A; Surgeon: Ayde Kearney MD; Location: [facility]) CURRENT MEDICATIONS No current facility-administered medications for this encounter. Current Outpatient Medications Medication Sig Dispense Refill alteplase 2 MG Recon Soln 2 mg by Intracatheter route once for 1 dose. 2 mg 0 Ascorbic Acid (VITAMIN C) 250 MG Chew Tab Chew 250 mg daily. Ca Phosphate-Cholecalciferol (CALCIUM/VITAMIN D3 GUMMIES PO) Take 50 mg by mouth daily. COENZYME Q-10 PO take by mouth.. Magnesium 400 MG Tab Take 1 tablet by mouth daily. 30 tablet 11 Multiple Vitamin (MULTIVITAMIN) Cap take 1 capsule by mouth daily.. Multiple Vitamins-Minerals (IMMUNE SUPPORT) Chew Tab Chew 250 mg daily. nadolol 20 MG Tab tablet Take 1/2 tablet daily for three days then 1/2 tablet twice daily for threetimes then 1/2 tablets three times daily. (Patient not taking: Reported on 10/04/2018) 45 tablet 3 naproxen 500 MG Tab take 1 tablet by mouth See admin instructions.. (Patient not taking: Reported on 10/04/2018) 16 tablet 11 Vit-Fe Fumarate-FA ( 19) Chew Tab Chew. Vitafusion prochlorperazine 5 MG Tab take 1 tablet by mouth every 8 hours as needed for Other.. (Patient not taking: Reported on 10/04/2018) 30 tablet 11 pyridostigmine 60 MG Tab Take 1 tablet by mouth 3 times daily. Spread throughout the day (Patient not taking: Reported on 10/04/2018) 90 tablet 11 Riboflavin 400 MG Tab Take 400 mg by mouth daily. 30 tablet 11 sodium chloride 0.9%, MB PLUS, 0.9% Solution 1,000 mL by Intravenous route twice a week. 8000 mL 11 Sodium Chloride Flush (NORMAL SALINE FLUSH) 0.9% Solution 1,000 mL by Intravenous route every 14 days. 6000 mL 3 ALLERGIES Allergies Allergen Reactions Adhesive [*Adhesive Tape] Tegaderm Latex Hives Sulfa Antibiotics Hives FAMILY HISTORY Family History Problem Relation Age of Onset Hypertension Father Other - Specify Father Dementia No known problems Mother No known problems Sister No known problems Sister SOCIAL HISTORY Social History Socioeconomic History Marital status: Spouse name: Not on file Number of children: Not on file Years of education: Not on file Highest education level: Not on file Occupational History Not on file Tobacco Use Smoking status: Never Smokeless tobacco: Never Substance and Sexual Activity Alcohol use: No Drug use: No Sexual activity: Yes Partners: Male control/protection: Pill Other Topics Concern Not on file Social History Narrative Not on file Social Determinants of Health Financial Resource Strain: Not on file Food Insecurity: Not on file Transportation Needs: Not on file Physical Activity: Not on file Stress: Not on file Social Connections: Not on file Intimate Partner Violence: Not on file Housing Stability: Not on file PHYSICAL EXAM BP 142/86 (BP Location: Left arm, BP Position: Lying) Pulse 98 Temp 98.5 F (36.9 C) Resp 18 Ht 1.727 m (5' 8) SpO2 99% BMI 26.17 kg/m Smoking Status Never Physical Exam Vitals and nursing note reviewed. Constitutional: General: She is not in acute distress. Appearance: Normal appearance. She is normal weight. She is not ill-appearing or toxic-appearing. HENT: Head: Normocephalic and atraumatic. Nose: Nose normal. Mouth/Throat: Mouth: Mucous membranes are moist. Pharynx: Oropharynx is clear. Eyes: Extraocular Movements: Extraocular movements intact. Conjunctiva/sclera: Conjunctivae normal. Pupils: Pupils are equal, round, and reactive to light. Cardiovascular: Rate and Rhythm: Normal rate and regular rhythm. Pulses: Normal pulses. Heart sounds: Normal heart sounds. Pulmonary: Effort: Pulmonary effort is normal. Breath sounds: Normal breath sounds. Abdominal: General: Abdomen is flat. Palpations: Abdomen is soft. Musculoskeletal: General: Normal range of motion. Skin: General: Skin is warm and dry. Capillary Refill: Capillary refill takes less than 2 seconds. Neurological: General: No focal deficit present. Mental Status: She is alert and oriented to person, place, and time. Mental status is at baseline. Cranial Nerves: Cranial nerves 2-12 are intact. No cranial nerve deficit, dysarthria or facial asymmetry. Sensory: Sensation is intact. No sensory deficit. Motor: Motor function is intact. No weakness or tremor. Coordination: Coordination is intact. Aeiktm-Ugre-Ukwgrh Test normal. Comments: Modified NIH 0 ED COURSE & MEDICAL DECISION MAKING Assessment: Clarisa De La Cruz is a 33 y.o. female with past medical history significant for HTN, migraines and Weaver disease who presents with confusion and aphasia that is now resolved. Ddx: CVA, TIA, complex migraine Initial Plan and ED course: - CBC, Chem 7 - EKG - Neurovascular consult - Likely admission to observation for MRI and Echo in AM. Impression: Confusion and aphasia Disposition: Pending neurovascular recommendations but likely to observation for further TIA work up. Medical Decision Making CT Head and CTA unremarkable from OSH. Patient back to baseline after migraine cocktail at OSH but TIA cannot be ruled out without MRI and echo. Will likely admit to observation for further imaging pending neurovascular recommendations. Amount and/or Complexity of Data Reviewed Labs: ordered. ECG/medicine tests: ordered. Lexie Mendoza MD Resident 04/23/232026 [facility] Work Phone: [phone] 780-741212-16-2023 Emergency department Note* Francisca Urrutia RN - 04/23/2023 4:27 PM EST Patient present to the ED for new confusion, headaches and difficulty speaking. Went to OSH where they did a CT scan, lab work, chest xray, and EKG and was told she may be having TIAs, and to come to [facility] for further evaluation. 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 Reports when speaking in class, words were coming out but nothing made sense and that she got confused trying to unlock her classroom door. [facility]01-28-2023 History of Present illness Narrative* CHRISTOPHER Rogers - 06/05/2022 8:23 AM EST This note was created using Grid [employer]. Subjective Clarisa De La Cruz is a 32 year old female. HPI 32-year-old female presents for right ear pain and drainage and sinus congestion for 2 weeks. Patient states she started getting sinus congestion and sinus pressure about 2 weeks ago. She had a lot of nasal drainage. States she has a history of sinus infections and has actually had surgery for it in the past, but still intermittently gets sinus infections. States over the past few days she has had a lot of pressure in her ears and pain in her ears, more so on the right. She has pain and aching in her teeth and face. She states that she noticed some brownish drainage on her pillow from herright ear. She denies any fevers, cough, sore throat. No sick contacts. Review of Systems Constitutional: Negative for chills and fever. HENT: Positive for congestion, ear discharge, ear pain, sinus pressure and sinus pain. Negative forsore throat. Respiratory: Negative for cough and shortness of breath. Cardiovascular: Negative for chest pain. Gastrointestinal: Negative for diarrhea and vomiting. Objective BP 130/80 Pulse 74 Temp 36.4 C (97.6 F) Resp 16 Wt 80.3 kg (177 lb) LMP 04/09/2020 (ExactDate) SpO2 98% BMI 27.72 kg/m Physical Exam Vitals and nursing note reviewed. Constitutional: General: She is not in acute distress. Appearance: Normal appearance. She is not toxic-appearing. HENT: Right Ear: Tympanic membrane normal. Drainage present. Left Ear: Tympanic membrane and ear canal normal. Ears: Comments: Clear fluid behind both TMs. Minimal amount of brown/yellow drainage in the right ear canal. No blood. No TM perforation. Nose: Congestion present. Right Sinus: Maxillary sinus tenderness present. Left Sinus: Maxillary sinus tenderness present. Mouth/Throat: Mouth: Mucous membranes are moist. Pharynx: No oropharyngeal exudate or posterior oropharyngeal erythema. Eyes: Conjunctiva/sclera: Conjunctivae normal. Cardiovascular: Rate and Rhythm: Normal rate and regular rhythm. Pulmonary: Effort: Pulmonary effort is normal. Breath sounds: Normal breath sounds. Neurological: Mental Status: She is alert. Assessment and Plan ASSESSMENT/PLAN: 1. Acute otitis externa of right ear, unspecified type - ICD9: 380.10, ICD10: H60.501 (primary diagnosis) -Ofloxacin drops -Recommended follow-up with her ENT. 2. Bacterial sinusitis - ICD9: 473.9, 041.9, ICD10: J32.9, B96.89 -Symptoms x2 weeks with history of recurrent sinus infections. - Will begin treatment with Augmentin 875 mg PO BID for 5 days Diagnosis and treatment plan were discussed and questions were answered to the patient's satisfaction. Pt acknowledged understanding of concepts and follow up plan. Specific signs and symptoms that would indicate the need for higher level of care were discussed in detail warranting prompt ER evaluation. Medical Decision Making: Problems: Low: 2+ self-limited or minor problems Risk: Moderate: Moderate risk from testing/treatment Medical Decision Making Level: 3 - Low CHRISTOPHER Rogers [facility] Miscellaneous Notes* Telephone Encounter - Becky Lara LPN - 10/09/2021 8:16 AM EDT Pt. Notified for pt. To contact her PCP first for a work up. Pt. Voiced understanding. Becky Lara LPN * Telephone Encounter - Chico Sanchez DO - 10/08/2021 8:56 PM EDT Contact PCP first for work up. Chico Sanchez DO * Telephone Encounter - Kaylynn Law LPN - 10/08/2021 9:22 AM EDT [facility]. Patient has not seen or called PCP regarding symptoms. Kaylynn Law LPN * Telephone Encounter - Sosa Moeller Pss - 10/08/2021 9:06 AM EDT Patient calling stating she had anemia during . Patient delivered 9 months ago. Patient feeling tired, rundown and easily bruising. Patient asking if she should come in for infusions? Patient seeing PCP in November, PCP unaware of return of symptoms. Please advise and call patient. documented in [facility] encounter[facility] NoteHNO ID: [id number] Author: ZIGGY Dubois Service: Anesthesiology Author Type: Block Cableman Type: Anesthesia Procedure Notes Filed: 06/26/2021 12:57 PM Note Text: ANESTHESIOLOGY PROCEDURE NOTE Airway General Information Procedure Start Time/Medication Administration: 06/26/2021 12:47 PM Patient location during procedure: OR Staffing Anesthesiologist: Mando Forde MD CAA: ZIGGY Dubois Performed by: DESTINY Indications and Patient Condition Preoxygenated: yes Difficult Mask: No Indications for airway management: anesthesia anesthesia circuit Method: asleep Final Airway Details Final airway type: endotracheal airway Final Endotracheal Airway: ETT Cuffed: yes Successful intubation technique: direct laryngoscopy Endotracheal tube insertion site: oral Blade: Sara Blade size: #4 ETT size (mm): 7.0 Measured from: lips Measurement (cm): 20 Placement verified by: capnometry Cormack-Lehane Classification: grade I - full view of glottis Number of attempts at approach: 1 Airway not difficult SIGNATURE: ZIGGY Dubois PATIENT NAME: Clarisa De La Cruz DATE: June 26, 2021 TIME: 12:57 PM CSN: [id number] [facility] Discharge Summary Admission on 01/26/2021 10:04 PM Clarisa De La Cruz is a 30 y.o. female at 34w6d who was admitted for persistent NANCE in the setting of cHTN. Patient with significant pmhx cHTN and POTS. Reports Bps were initially labile in early , until 2wks ago started to have persistently elevated Bps and was started on labetalol. Patient called into office reporting worsening NANCE over last week. Patient previously received BMZ 01/15-. Patient reports chronic NANCE outside of and has been established with neurology. Fioricet did not improve her symptoms at home. Patient was evaluated in [place] and Pre[facility] labs were negative. Reglan improved NANCE prior to transfer to [facility]. Upon arrival to [facility], patient was started on magnesium sulfate for seizure ppx. Ultimately, neurology was consulted for additional workup of patient's NANCE. An MRI/MRV/MRA was obtained and was negative, although a normal variant incomplete [place] was identified. PreE labs were negative and Bps were well controlled on labetalol 200mg TID. Her headache was determined to be related to her history of migraines and not pre-eclampsia. A growth US was obtained during her admission with breech malpresentation, EFW 2007g 14%, AC <3%, and UAD wnl. Patient stable for discahrge and given strict return precautions. After discussion with neurology, patient to be discharged with tylenol, reglan, and benadryl for her NANCE. Meds: Clarisa De La Cruz Home Medication Instructions JULIO:[id number] Printed on:01/28/21 1301 Medication Information acetaminophen (TYLENOL) 500 MG tablet Take 1 tablet by mouth 4 times daily as needed for Pain aspirin 81 MG EC tablet Take 81 mg by mouth daily lehxwqhqjd-lwortosrwfimq-lmfgdpsz (FIORICET, ESGIC) 50-325-40 MG per tablet Take 1-2 tablets by mouth daily diphenhydrAMINE (BENADRYL ALLERGY) 25 MG capsule Take 1 capsule by mouth every 6 hours as needed for Itching labetalol (NORMODYNE) 200 MG tablet Take 200 mg by mouth three times daily loratadine (CLARITIN) 10 MG capsule Take 10 mg by mouth daily metoclopramide (REGLAN) 10 MG tablet Take 1 tablet by mouth 3 times daily (with meals) Vit-Fe Fumarate-FA ( VITAMIN) CHEW Take 1 tablet by mouth daily progesterone (PROMETRIUM) 200 MG CAPS capsule Take 200 mg by mouth daily Discharge to: Home Discharge date: 01/28/2021 Discharge Dx: Headache, cHTN, FGR, POTS Follow up appointment with your doctor/pharmacy services representative - Keep next scheduled appointment Activity - Normal Activity Call your doctor/pharmacy services representative if you have: - leaking fluid - vaginal bleeding - regular contractions: More than 6 contractions in one hour - decreased movement - worsening abdominal (belly) pain - headache, blurry vision, increased swelling, upper abdominal pain Dung Penn DO on 01/28/2021 at 1:[address] [facility] noteNo assessment information availableWCleveland [facility] Work Phone: Evaluation note* Diagnosis Acute otitis externa of right ear, unspecified type- Primary Bacterial sinusitis Unspecified sinusitis (chronic) [facility] TIA (transient ischemic attack)- Primary Unspecified transient cerebral ischemia Arachnoid cyst Cerebral cysts [facility] TIA (transient ischemic attack) Unspecified transient cerebral ischemia [facility] Diagnosis Encounter for supervision of high risk in second trimester, antepartum- Primary 13 weeks gestation of state, incidental Chronic hypertension affecting History of intrauterine in previous History of migraine Personal history of other disorders of nervous system and sense organs History of section Other postprocedural status History of pre-eclampsia Personal history of other genital system and obstetric disorders TIA (transient ischemic attack) Unspecified transient cerebral ischemia Vaginal bleeding in , first trimester Nausea/vomiting in Unspecified vomiting of , unspecified as to episode of care POTS (postural orthostatic tachycardia syndrome) Tachycardia, unspecified Left lower quadrant abdominal pain with care elsewhere in second trimester [facility] Encounter for supervision of high risk in second trimester, antepartum- Primary 15 weeks gestation of state, incidental Chronic hypertension affecting [facility] Encounter for supervision of high risk in second trimester, antepartum- Primary Chronic hypertension affecting History of intrauterine in previous 17 weeks gestation of state, incidental [facility]* Diagnosis TIA (transient ischemic attack)- Primary Unspecified transient cerebral ischemia [facility]* Diagnosis Migraine with aura and without status migrainosus, not intractable- Primary Migraine with aura, without mention of intractable migraine without mention of status migrainosus Encounter for supervision of high risk in second trimester, antepartum 13 weeks gestation of state, incidental TIA (transient ischemic attack) Unspecified transient cerebral ischemia [facility] Diagnosis Encounter for supervision of high risk in second trimester, antepartum- Primary Chronic hypertension affecting History of pre-eclampsia Personal history of other genital system and obstetric disorders TIA (transient ischemic attack) Unspecified transient cerebral ischemia History of intrauterine in previous 20 weeks gestation of state, incidental [facility]* Diagnosis Chronic hypertension affecting - Primary Encounter for supervision of high risk in second trimester, antepartum History of intrauterine in previous TIA (transient ischemic attack) Unspecified transient cerebral ischemia History of section Other postprocedural status POTS (postural orthostatic tachycardia syndrome) Tachycardia, unspecified History of migraine Personal history of other disorders of nervous system and sense organs 20 weeks gestation of state, incidental Encounter for anatomic survey [facility] Diagnosis Encounter for supervision of high risk in second trimester, antepartum- Primary Chronic hypertension affecting POTS (postural orthostatic tachycardia syndrome) Tachycardia, unspecified Tachycardia Tachycardia, unspecified 23 weeks gestation of state, incidental [facility]* Diagnosis Supervision of high risk in second trimester- Primary Unspecified high-risk Vaginal discharge Leukorrhea, not specified as infective 24 weeks gestation of state, incidental Chronic hypertension affecting [facility] Diagnosis Chronic hypertension complicating or reason for care during childbirth- Primary Benign essential hypertension complicating , childbirth, and the puerperium, unspecified as to episode of care History of intrauterine in previous Supervision of high risk in second trimester Unspecified high-risk Need for vaccination Need for prophylactic vaccination and inoculation against unspecified single disease [facility]* Diagnosis History of intrauterine in previous - Primary Encounter for supervision of high risk in second trimester, antepartum Chronic hypertension affecting POTS (postural orthostatic tachycardia syndrome) Tachycardia, unspecified Tachycardia Tachycardia, unspecified 28 weeks gestation of state, incidental [facility]* Diagnosis History of intrauterine in previous - Primary Encounter for supervision of high risk in second trimester, antepartum Chronic hypertension affecting POTS (postural orthostatic tachycardia syndrome) Tachycardia, unspecified [facility]* Diagnosis 29 weeks gestation of - Primary state, incidental Encounter for supervision of high risk in second trimester, antepartum Chronic hypertension affecting POTS (postural orthostatic tachycardia syndrome) Tachycardia, unspecified [facility]* Diagnosis History of intrauterine in previous - Primary Chronic hypertension complicating or reason for care during childbirth Benign essential hypertension complicating , childbirth, and the puerperium, unspecified as to episode of care 29 weeks gestation of state, incidental [facility]* Diagnosis 29 weeks gestation of - Primary state, incidental Encounter for supervision of high risk in second trimester, antepartum Chronic hypertension affecting History of intrauterine in previous [facility]* Diagnosis 30 weeks gestation of - Primary state, incidental Encounter for supervision of high risk in second trimester, antepartum Chronic hypertension affecting [facility]* Diagnosis Hypertension affecting , third trimester- Primary Chronic hypertension complicating or reason for care during childbirth Benign essential hypertension complicating , childbirth, and the puerperium, unspecified as to episode of care History of intrauterine in previous [facility]* Diagnosis Encounter for supervision of high risk in second trimester, antepartum- Primary 30 weeks gestation of state, incidental Chronic hypertension affecting History of intrauterine in previous [facility]* Diagnosis Migraine with aura and without status migrainosus, not intractable Migraine with aura, without mention of intractable migraine without mention of status migrainosus [facility]* Diagnosis 31 weeks gestation of - Primary state, incidental Encounter for supervision of high risk in third trimester, antepartum History of intrauterine in previous [facility]* Diagnosis Chronic hypertension complicating or reason for care during childbirth Benign essential hypertension complicating , childbirth, and the puerperium, unspecified as to episode of care History of intrauterine in previous [facility]* Diagnosis High-risk in third trimester- Primary 31 weeks gestation of state, incidental Chronic hypertension complicating or reason for care during childbirth Benign essential hypertension complicating , childbirth, and the puerperium, unspecified as to episode of care [facility]* Diagnosis Chronic hypertension complicating or reason for care during childbirth- Primary Benign essential hypertension complicating , childbirth, and the puerperium, unspecified as to episode of care High-risk in third trimester History of intrauterine in previous 32 weeks gestation of state, incidental [facility]* Diagnosis 32 weeks gestation of - Primary state, incidental Chronic hypertension complicating or reason for care during childbirth Benign essential hypertension complicating , childbirth, and the puerperium, unspecified as to episode of care History of intrauterine in previous [facility]* Diagnosis Chronic hypertension affecting - Primary History of intrauterine in previous [facility]* Diagnosis 33 weeks gestation of - Primary state, incidental Chronic hypertension affecting High-risk in third trimester [facility]* Diagnosis Hypertension affecting in third trimester- Primary Chronic hypertension complicating or reason for care during childbirth Benign essential hypertension complicating , childbirth, and the puerperium, unspecified as to episode of care History of intrauterine in previous 33 weeks gestation of state, incidental [facility]* Diagnosis 33 weeks gestation of - Primary state, incidental High-risk in third trimester Chronic hypertension complicating or reason for care during childbirth Benign essential hypertension complicating , childbirth, and the puerperium, unspecified as to episode of care History of intrauterine in previous Hypertension affecting in third trimester [facility]* Diagnosis 34 weeks gestation of - Primary state, incidental High-risk in third trimester Chronic hypertension complicating or reason for care during childbirth Benign essential hypertension complicating , childbirth, and the puerperium, unspecified as to episode of care [facility]* Diagnosis History of intrauterine in previous - Primary Chronic hypertension complicating or reason for care during childbirth Benign essential hypertension complicating , childbirth, and the puerperium, unspecified as to episode of care 34 weeks gestation of state, incidental [facility]* Diagnosis High-risk in third trimester- Primary Chronic hypertension complicating or reason for care during childbirth Benign essential hypertension complicating , childbirth, and the puerperium, unspecified as to episode of care History of intrauterine in previous Chronic hypertension affecting 34 weeks gestation of state, incidental [facility] Diagnosis Chronic hypertension complicating or reason for care during childbirth- Primary Benign essential hypertension complicating , childbirth, and the puerperium, unspecified as to episode of care History of intrauterine in previous 35 weeks gestation of state, incidental [facility]* Diagnosis Postoperative pain- Primary Other acute postoperative pain Hypertension in , preeclampsia, delivered Mild or unspecified pre-eclampsia, with delivery [facility]* Diagnosis S/P section- Primary Other postprocedural status Chronic hypertension [facility]* Diagnosis Encounter for supervision of high risk in third trimester, antepartum- Primary 35 weeks gestation of state, incidental History of intrauterine in previous Chronic hypertension affecting History of section Other postprocedural status History of pre-eclampsia Personal history of other genital system and obstetric disorders POTS (postural orthostatic tachycardia syndrome) Tachycardia, unspecified TIA (transient ischemic attack) Unspecified transient cerebral ischemia [facility]* Diagnosis Dysuria- Primary [facility]* Diagnosis Dysuria- Primary documented in this encounter [facility] note* Diagnosis Migraine with aura and without status migrainosus, not intractable Migraine with aura, without mention of intractable migraine without mention of status migrainosus [facility]* Diagnosis care and examination- Primary Routine follow-up Encounter for screening for malignant neoplasm of cervix Screening for malignant neoplasm of the cervix [facility]* Diagnosis TIA (transient ischemic attack)- Primary Unspecified transient cerebral ischemia [facility]* Diagnosis Sinobronchitis- Primary Unspecified sinusitis (chronic) documented in this encounter [facility] note* Diagnosis Abnormal uterine bleeding (AUB)- Primary Dysmenorrhea documented in this encounter [facility] note* Diagnosis Abnormal uterine bleeding (AUB)- Primary Dysmenorrhea Subseptate uterus Septate uterus Adenomyosis of uterus documented in this encounter [facility] note* Diagnosis Adenomyosis of uterus Irregular menstruation Irregular menstrual cycle [facility]* Diagnosis Abnormal uterine bleeding (AUB)- Primary documented in this encounter [facility] note* Diagnosis Abnormal uterine bleeding (AUB)- Primary Adenomyosis of uterus Irregular menstruation Irregular menstrual cycle documented in this encounter [facility] for referral (narrative)* Diagnostic Procedure Only (Routine) - Authorized Specialty Diagnoses / Procedures Referred By Ivelisse lee Referred To Contact [facility] Diagnoses 23 weeks gestation of Encounter for supervision of high risk in second trimester, antepartum Chronic hypertension affecting POTS (postural orthostatic tachycardia syndrome) Tachycardia Procedures OBSTETRIC ULTRASOUND WHI US PREG UTERUS AFTER 1ST TRIMEST GESTATION Jen Arredondo MD [address] [place] [address] [address] Referral ID Status Reason Start Date Expiration Date Visits Requested Visits Authorized [id number] Authorized Auto-Generat ed Referral 09/07/2023 09/06/2024 8 1 * Consult, Test, Treat (Routine) - Authorized Specialty Diagnoses / Procedures Referred By Contac t Referred To Contact Cardiology Diagnoses 23 weeks gestation of Chronic hypertension affecting POTS (postural orthostatic tachycardia syndrome) Tachycardia Procedures CONSULT TO CARDIOLOGY OFFICE/OUTPATIENT [facility] 60 MINUTES Jen Arredondo MD [address] [place] [address] Referral ID Status Reason Start Date Expiration Date Visits Requested Visits Authorized [id number] Authorized PCP Requested Referral 09/07/2023 09/06/2024 1 1 [facility] for referral (narrative)* Diagnostic Procedure Only (Routine) - Authorized Specialty Diagnoses / Procedures Referred By Ivelisse t Referred To Contact [facility] Diagnoses Chronic hypertension complicating or reason for care during childbirth History of intrauterine in previous Supervision of high risk in second trimester Procedures BIOPHYSICAL PROFILE US [facility] BIOPHYSICAL PROFILE NON-STRESS TESTING Jen Arredondo MD [address] [place] [address] [facility] [address] [place] [address] Referral ID Status Reason Start Date Expiration Date Visits Requested Visits Authorized [id number] Authorized Auto-Generat ed Referral 10/11/2023 10/10/2024 15 1 * Outpatient Procedure (Routine) - Authorized Specialty Diagnoses / Procedures Referred By Ivelisse t Referred To Contact [facility] Diagnoses Chronic hypertension complicating or reason for care during childbirth History of intrauterine in previous Supervision of high risk in second trimester Procedures NON-STRESS TEST NON-STRESS TEST Jen Arredondo MD [address] [place] [address] [address] Referral ID Status Reason Start Date Expiration Date Visits Requested Visits Authorized [id number] Authorized Auto-Generat ed Referral 10/11/2023 10/10/2024 15 1 [facility] Narrative* Diagnostic Procedure Only (Routine) - Closed Specialty Diagnoses / Procedures Referred By Contac t Referred To Contact [facility] Diagnoses Abnormal uterine bleeding (AUB) Dysmenorrhea Procedures PELVIC US WHI US PELVIC NONOBSTETRIC REAL-TIME IMAGE COMPLETE Geovanna Avilez APRN.CNM [address] [place] [address] Phone: tel: fax: [address] [address] Referral ID Status Reason Start Date Expiration Date V isits Requested Visits Authorized [id number] Closed Auto-Generate d Referral 10/22/2024 10/22/2025 1 1 [facility] Summary Purpose Family History No Family History Records Found Relationship Condition Age at Onset Recorded Date/T chiquis father Diabetes mellitus Unknown Hypertension Unknown Advance Directives No Advanced Directives Records FoundDocuments on File Type Date Recorded Patient Geneticist Expl anation Advance Directive(s) 06/26/2021 9:55 AM Advance Directive(s) 06/05/2021 12:55 PM Advance Directive Response Recorded Date/ Time Advance Directives No July 17 10:00am Living Will No February 11 4:25am Power of Game Artist No February 11 4:25am Advance Directive Response Recorded Date/ Time Advance Directives No July 17 11:00am Living Will No February 11 5:25am Power of Game Artist No February 11 5:25am Reason for Referral Specialty Diagnoses / Procedures Referred By Contac t Referred To Contact Diagnoses TIA (transient ischemic attack) Procedures ECHOCARDIOGRAM MS ECHO HEART XTHORACIC,COMPLETE W DOPPLER Jean Govea, ARBORICULTURIST-CHECK WEIGHER [address] [place] [address] Referral ID Status Reason Start Date Expiration Date V isits Requested Visits Authorized [id number] Auth Not Needed 04/24/2023 05/18/2024 1 1 Specialty Diagnoses / Procedures Referred By Contac t Referred To Contact Neurology Diagnoses TIA (transient ischemic attack) Jean Govea ARBORICULTURIST-CHECK WEIGHER [address] [place] [address] Referral ID Status Reason Start Date Expiration Date V isits Requested Visits Authorized [id number] New Request 04/24/2023 05/18/2024 1 1 Specialty Diagnoses / Procedures Referred By Contac t Referred To Contact Procedures ECG Julio Bunn MD [address] [place] [address] Referral ID Status Reason Start Date Expiration Date V isits Requested Visits Authorized [id number] New Request 04/23/2023 05/17/2024 1 1 Specialty Diagnoses / Procedures Referred By Contac t Referred To Contact Echocardiography Diagnoses TIA (transient ischemic attack) Procedures ECHOCARDIOGRAM MS ECHO HEART XTHORACIC,COMPLETE W DOPPLER Jean Govea, ARBORICULTURIST-CHECK WEIGHER [address] [place] [address] Echocardiography [place] [address] [place] [address] Referral ID Status Reason Start Date Expiration Date Visits Re quested Visits Authorized [id number] Closed 04/24/2023 05/18/2024 1 1 Specialty Diagnoses / Procedures Referred By Contac t Referred To Contact Diagnoses Encounter for supervision of high risk in second trimester, antepartum 13 weeks gestation of Chronic hypertension affecting History of intrauterine in previous TIA (transient ischemic attack) Procedures CONSULT TO MATERNAL MEDI OFFICE/OUTPATIENT [facility] 60 MINUTES Ivett Palomo APRN.CHECK WEIGHER [address] [place] [address] Referral ID Status Reason Start Date Expiration Date Visits Requested Visits Authorized [id number] Authorized PCP Requested Referral Auto-Generate d Referral 07/01/2023 06/30/2024 1 1 Specialty Diagnoses / Procedures Referred By Contac t Referred To Contact [facility] Diagnoses Encounter for supervision of high risk in second trimester, antepartum Procedures NUCHAL TRANSLUCENCY WHI US NUCHAL TRANSLUCENCY 1ST GESTATION Ivett Palomo APRN.CHECK WEIGHER [address] [place] [address] [address] Referral ID Status Reason Start Date Expiration Date Visits Requested Visits Authorized [id number] Authorized Auto-Generat ed Referral 07/01/2023 06/30/2024 1 1 Specialty Diagnoses / Procedures Referred By Contac t Referred To Contact Neurology Diagnoses Encounter for supervision of high risk in second trimester, antepartum 13 weeks gestation of TIA (transient ischemic attack) Procedures CONSULT TO NEUROLOGY OFFICE/OUTPATIENT [facility] 60 MINUTES Ivett Palomo APRN.CHECK WEIGHER [address] [place] [address] Referral ID Status Reason Start Date Expiration Date Visits Requested Visits Authorized [id number] Authorized PCP Requested Referral 07/01/2023 06/30/2024 1 1 Specialty Diagnoses / Procedures Referred By Contac t Referred To Contact [facility] Diagnoses Encounter for supervision of high risk in second trimester, antepartum 13 weeks gestation of Procedures OBSTETRIC ULTRASOUND WHI US PREG UTERUS AFTER 1ST TRIMEST GESTATION Ivett Palomo APRN.CHECK WEIGHER [address] [place] [address] [address] Referral ID Status Reason Start Date Expiration Date Visits Requested Visits Authorized [id number] Pending Review Auto-Generat ed Referral 07/01/2023 06/30/2024 1 1 Specialty Diagnoses / Procedures Referred By Contac t Referred To Contact Neurology Diagnoses Migraine with aura and without status migrainosus, not intractable Procedures CONSULT TO NEUROLOGY OFFICE/OUTPATIENT [facility] 60 MINUTES Sneha Cardenas APRN.CHECK WEIGHER [address] [place] [address] Referral ID Status Reason Start Date Expiration Date Visits Requested Visits Authorized [id number] Authorized PCP Requested Referral 08/02/2023 08/01/2024 1 1 Specialty Diagnoses / Procedures Referred By Contac t Referred To Contact Diagnoses Migraine with aura and without status migrainosus, not intractable Procedures PROVIDER ORDERED FOLLOW UP OFFICE/OUTPATIENT [facility] [address] [place] [address] [place] [address] Referral ID Status Reason Start Date Expiration Date Visits Requested Visits Authorized [id number] Authorized PCP Requested Referral 01/08/2024 10/24/2024 1 1 Chief Complaint and Reason for Visit Chief Complaint R/O LABOR Additional Source Comments INFORMATION SOURCE (unrecogn ized section and content) DATE CREATED AUTHOR 12/04/[address] [facility] DATE CREATED AUTHOR AUTHOR'S ORGANIZ ATION 02/12/2021 [facility] DATE CREATED AUTHOR AUTHOR'S ORGANIZ ATION 03/14/2021 [facility] DATE CREATED AUTHOR AUTHOR'S ORGANIZ ATION 05/21/2021 [facility] DATE CREATED AUTHOR AUTHOR'S ORGANIZ ATION 07/01/2021 [facility] DATE CREATED AUTHOR AUTHOR'S ORGANIZ ATION 06/16/2023 [facility] DATE CREATED AUTHOR AUTHOR'S ORGANIZ ATION 07/24/2023 [facility] DATE CREATED AUTHOR AUTHOR'S ORGANIZ ATION 08/16/2023 [facility] DATE CREATED AUTHOR AUTHOR'S ORGANIZ ATION 04/10/2024 [facility] DATE CREATED AUTHOR AUTHOR'S ORGANIZ ATION 02/12/2025 [facility] DATE CREATED AUTHOR AUTHOR'S ORGANIZ ATION [facility]20[facility] Source Comments (unrecognize d section and content) In the event this informatio n is protected by the Federal Confidentiality of Alcohol and Drug Abuse Patient Records regulations: The Federal rules restrict any use of the information to criminally investigate or prosecute any alcohol or drug abuse patient.[facility] the event this information is protected by the Federal Confidentiality of Alcohol and Drug Abuse Patient Records regulations: The Federal rules restrict any use of the information to criminally investigate or prosecute any alcohol or drug abuse patient.[facility] HospitalIn the event this information is protected by the Federal Confidentiality of Alcohol and Drug Abuse Patient Records regulations: The Federal rules restrict any use of the information to criminally investigate or prosecute any alcohol or drug abuse patient.[facility] HospitalIn the event this information is protected by the Federal Confidentiality of Alcohol and Drug Abuse Patient Records regulations: The Federal rules restrict any use of the information to criminally investigate or prosecute any alcohol or drug abuse patient.[facility] HospitalIn the event this information is protected by the Federal Confidentiality of Alcohol and Drug Abuse Patient Records regulations: The Federal rules restrict any use of the information to criminally investigate or prosecute any alcohol or drug abuse patient.[facility] HospitalIn the event this information is protected by the Federal Confidentiality of Alcohol and Drug Abuse Patient Records regulations: The Federal rules restrict any use of the information to criminally investigate or prosecute any alcohol or drug abuse patient.[facility] HospitalIn the event this information is protected by the Federal Confidentiality of Alcohol and Drug Abuse Patient Records regulations: The Federal rules restrict any use of the information to criminally investigate or prosecute any alcohol or drug abuse patient.[facility] HospitalIn the event this information is protected by the Federal Confidentiality of Alcohol and Drug Abuse Patient Records regulations: The Federal rules restrict any use of the information to criminally investigate or prosecute any alcohol or drug abuse patient.[facility] HospitalIn the event this information is protected by the Federal Confidentiality of Alcohol and Drug Abuse Patient Records regulations: The Federal rules restrict any use of the information to criminally investigate or prosecute any alcohol or drug abuse patient.[facility] HospitalIn the event this information is protected by the Federal Confidentiality of Alcohol and Drug Abuse Patient Records regulations: The Federal rules restrict any use of the information to criminally investigate or prosecute any alcohol or drug abuse patient.[facility] HospitalIn the event this information is protected by the Federal Confidentiality of Alcohol and Drug Abuse Patient Records regulations: The Federal rules restrict any use of the information to criminally investigate or prosecute any alcohol or drug abuse patient.[facility] HospitalIn the event this information is protected by the Federal Confidentiality of Alcohol and Drug Abuse Patient Records regulations: The Federal rules restrict any use of the information to criminally investigate or prosecute any alcohol or drug abuse patient.[facility] HospitalIn the event this information is protected by the Federal Confidentiality of Alcohol and Drug Abuse Patient Records regulations: The Federal rules restrict any use of the information to criminally investigate or prosecute any alcohol or drug abuse patient.[facility] HospitalIn the event this information is protected by the Federal Confidentiality of Alcohol and Drug Abuse Patient Records regulations: The Federal rules restrict any use of the information to criminally investigate or prosecute any alcohol or drug abuse patient.[facility] HospitalIn the event this information is protected by the Federal Confidentiality of Alcohol and Drug Abuse Patient Records regulations: The Federal rules restrict any use of the information to criminally investigate or prosecute any alcohol or drug abuse patient.[facility] HospitalIn the event this information is protected by the Federal Confidentiality of Alcohol and Drug Abuse Patient Records regulations: The Federal rules restrict any use of the information to criminally investigate or prosecute any alcohol or drug abuse patient.[facility] HospitalIn the event this information is protected by the Federal Confidentiality of Alcohol and Drug Abuse Patient Records regulations: The Federal rules restrict any use of the information to criminally investigate or prosecute any alcohol or drug abuse patient.[facility] HospitalIn the event this information is protected by the Federal Confidentiality of Alcohol and Drug Abuse Patient Records regulations: The Federal rules restrict any use of the information to criminally investigate or prosecute any alcohol or drug abuse patient.[facility] HospitalIn the event this information is protected by the Federal Confidentiality of Alcohol and Drug Abuse Patient Records regulations: The Federal rules restrict any use of the information to criminally investigate or prosecute any alcohol or drug abuse patient.[facility] HospitalIn the event this information is protected by the Federal Confidentiality of Alcohol and Drug Abuse Patient Records regulations: The Federal rules restrict any use of the information to criminally investigate or prosecute any alcohol or drug abuse patient.[facility] HospitalIn the event this information is protected by the Federal Confidentiality of Alcohol and Drug Abuse Patient Records regulations: The Federal rules restrict any use of the information to criminally investigate or prosecute any alcohol or drug abuse patient.[facility] HospitalIn the event this information is protected by the Federal Confidentiality of Alcohol and Drug Abuse Patient Records regulations: The Federal rules restrict any use of the information to criminally investigate or prosecute any alcohol or drug abuse patient.[facility] HospitalIn the event this information is protected by the Federal Confidentiality of Alcohol and Drug Abuse Patient Records regulations: The Federal rules restrict any use of the information to criminally investigate or prosecute any alcohol or drug abuse patient.[facility] HospitalIn the event this information is protected by the Federal Confidentiality of Alcohol and Drug Abuse Patient Records regulations: The Federal rules restrict any use of the information to criminally investigate or prosecute any alcohol or drug abuse patient.[facility] HospitalIn the event this information is protected by the Federal Confidentiality of Alcohol and Drug Abuse Patient Records regulations: The Federal rules restrict any use of the information to criminally investigate or prosecute any alcohol or drug abuse patient.[facility] HospitalIn the event this information is protected by the Federal Confidentiality of Alcohol and Drug Abuse Patient Records regulations: The Federal rules restrict any use of the information to criminally investigate or prosecute any alcohol or drug abuse patient.[facility] HospitalIn the event this information is protected by the Federal Confidentiality of Alcohol and Drug Abuse Patient Records regulations: The Federal rules restrict any use of the information to criminally investigate or prosecute any alcohol or drug abuse patient.[facility] HospitalIn the event this information is protected by the Federal Confidentiality of Alcohol and Drug Abuse Patient Records regulations: The Federal rules restrict any use of the information to criminally investigate or prosecute any alcohol or drug abuse patient.[facility] HospitalIn the event this information is protected by the Federal Confidentiality of Alcohol and Drug Abuse Patient Records regulations: The Federal rules restrict any use of the information to criminally investigate or prosecute any alcohol or drug abuse patient.[facility] HospitalIn the event this information is protected by the Federal Confidentiality of Alcohol and Drug Abuse Patient Records regulations: The Federal rules restrict any use of the information to criminally investigate or prosecute any alcohol or drug abuse patient.[facility] HospitalIn the event this information is protected by the Federal Confidentiality of Alcohol and Drug Abuse Patient Records regulations: The Federal rules restrict any use of the information to criminally investigate or prosecute any alcohol or drug abuse patient.[facility] HospitalIn the event this information is protected by the Federal Confidentiality of Alcohol and Drug Abuse Patient Records regulations: The Federal rules restrict any use of the information to criminally investigate or prosecute any alcohol or drug abuse patient.[facility] HospitalIn the event this information is protected by the Federal Confidentiality of Alcohol and Drug Abuse Patient Records regulations: The Federal rules restrict any use of the information to criminally investigate or prosecute any alcohol or drug abuse patient.[facility] HospitalIn the event this information is protected by the Federal Confidentiality of Alcohol and Drug Abuse Patient Records regulations: The Federal rules restrict any use of the information to criminally investigate or prosecute any alcohol or drug abuse patient.[facility] HospitalIn the event this information is protected by the Federal Confidentiality of Alcohol and Drug Abuse Patient Records regulations: The Federal rules restrict any use of the information to criminally investigate or prosecute any alcohol or drug abuse patient.[facility] HospitalIn the event this information is protected by the Federal Confidentiality of Alcohol and Drug Abuse Patient Records regulations: The Federal rules restrict any use of the information to criminally investigate or prosecute any alcohol or drug abuse patient.[facility] HospitalIn the event this information is protected by the Federal Confidentiality of Alcohol and Drug Abuse Patient Records regulations: The Federal rules restrict any use of the information to criminally investigate or prosecute any alcohol or drug abuse patient.[facility] HospitalIn the event this information is protected by the Federal Confidentiality of Alcohol and Drug Abuse Patient Records regulations: The Federal rules restrict any use of the information to criminally investigate or prosecute any alcohol or drug abuse patient.[facility] HospitalIn the event this information is protected by the Federal Confidentiality of Alcohol and Drug Abuse Patient Records regulations: The Federal rules restrict any use of the information to criminally investigate or prosecute any alcohol or drug abuse patient.[facility] HospitalIn the event this information is protected by the Federal Confidentiality of Alcohol and Drug Abuse Patient Records regulations: The Federal rules restrict any use of the information to criminally investigate or prosecute any alcohol or drug abuse patient.[facility] HospitalIn the event this information is protected by the Federal Confidentiality of Alcohol and Drug Abuse Patient Records regulations: The Federal rules restrict any use of the information to criminally investigate or prosecute any alcohol or drug abuse patient.[facility] HospitalIn the event this information is protected by the Federal Confidentiality of Alcohol and Drug Abuse Patient Records regulations: The Federal rules restrict any use of the information to criminally investigate or prosecute any alcohol or drug abuse patient.[facility] HospitalIn the event this information is protected by the Federal Confidentiality of Alcohol and Drug Abuse Patient Records regulations: The Federal rules restrict any use of the information to criminally investigate or prosecute any alcohol or drug abuse patient.[facility] HospitalIn the event this information is protected by the Federal Confidentiality of Alcohol and Drug Abuse Patient Records regulations: The Federal rules restrict any use of the information to criminally investigate or prosecute any alcohol or drug abuse patient.[facility] HospitalIn the event this information is protected by the Federal Confidentiality of Alcohol and Drug Abuse Patient Records regulations: The Federal rules restrict any use of the information to criminally investigate or prosecute any alcohol or drug abuse patient.[facility] HospitalIn the event this information is protected by the Federal Confidentiality of Alcohol and Drug Abuse Patient Records regulations: The Federal rules restrict any use of the information to criminally investigate or prosecute any alcohol or drug abuse patient.[facility] HospitalIn the event this information is protected by the Federal Confidentiality of Alcohol and Drug Abuse Patient Records regulations: The Federal rules restrict any use of the information to criminally investigate or prosecute any alcohol or drug abuse patient.[facility] HospitalIn the event this information is protected by the Federal Confidentiality of Alcohol and Drug Abuse Patient Records regulations: The Federal rules restrict any use of the information to criminally investigate or prosecute any alcohol or drug abuse patient.[facility] HospitalIn the event this information is protected by the Federal Confidentiality of Alcohol and Drug Abuse Patient Records regulations: The Federal rules restrict any use of the information to criminally investigate or prosecute any alcohol or drug abuse patient.[facility] HospitalIn the event this information is protected by the Federal Confidentiality of Alcohol and Drug Abuse Patient Records regulations: The Federal rules restrict any use of the information to criminally investigate or prosecute any alcohol or drug abuse patient.[facility] HospitalIn the event this information is protected by the Federal Confidentiality of Alcohol and Drug Abuse Patient Records regulations: The Federal rules restrict any use of the information to criminally investigate or prosecute any alcohol or drug abuse patient.[facility] HospitalIn the event this information is protected by the Federal Confidentiality of Alcohol and Drug Abuse Patient Records regulations: The Federal rules restrict any use of the information to criminally investigate or prosecute any alcohol or drug abuse patient.[facility] HospitalIn the event this information is protected by the Federal Confidentiality of Alcohol and Drug Abuse Patient Records regulations: The Federal rules restrict any use of the information to criminally investigate or prosecute any alcohol or drug abuse patient.[facility] HospitalIn the event this information is protected by the Federal Confidentiality of Alcohol and Drug Abuse Patient Records regulations: The Federal rules restrict any use of the information to criminally investigate or prosecute any alcohol or drug abuse patient.[facility] HospitalIn the event this information is protected by the Federal Confidentiality of Alcohol and Drug Abuse Patient Records regulations: The Federal rules restrict any use of the information to criminally investigate or prosecute any alcohol or drug abuse patient.[facility] HospitalIn the event this information is protected by the Federal Confidentiality of Alcohol and Drug Abuse Patient Records regulations: The Federal rules restrict any use of the information to criminally investigate or prosecute any alcohol or drug abuse patient.[facility] HospitalIn the event this information is protected by the Federal Confidentiality of Alcohol and Drug Abuse Patient Records regulations: The Federal rules restrict any use of the information to criminally investigate or prosecute any alcohol or drug abuse patient.[facility] HospitalIn the event this information is protected by the Federal Confidentiality of Alcohol and Drug Abuse Patient Records regulations: The Federal rules restrict any use of the information to criminally investigate or prosecute any alcohol or drug abuse patient.[facility] HospitalIn the event this information is protected by the Federal Confidentiality of Alcohol and Drug Abuse Patient Records regulations: The Federal rules restrict any use of the information to criminally investigate or prosecute any alcohol or drug abuse patient.[facility] HospitalIn the event this information is protected by the Federal Confidentiality of Alcohol and Drug Abuse Patient Records regulations: The Federal rules restrict any use of the information to criminally investigate or prosecute any alcohol or drug abuse patient.[facility] HospitalIn the event this information is protected by the Federal Confidentiality of Alcohol and Drug Abuse Patient Records regulations: The Federal rules restrict any use of the information to criminally investigate or prosecute any alcohol or drug abuse patient.[facility] HospitalIn the event this information is protected by the Federal Confidentiality of Alcohol and Drug Abuse Patient Records regulations: The Federal rules restrict any use of the information to criminally investigate or prosecute any alcohol or drug abuse patient.[facility] HospitalIn the event this information is protected by the Federal Confidentiality of Alcohol and Drug Abuse Patient Records regulations: The Federal rules restrict any use of the information to criminally investigate or prosecute any alcohol or drug abuse patient.[facility] Reason for Visit (unrecogniz ed section and content) Reason Comments [place] Specialty Diagnoses / Procedures Referred By Ivelisse lee Referred To Contact [facility] Diagnoses Chronic hypertension complicating or reason for care during childbirth History of intrauterine in previous Supervision of high risk in second trimester Procedures BIOPHYSICAL PROFILE US WHI BIOPHYSICAL PROFILE NON-STRESS TESTING Jen Arredondo MD [address] [place] [address] [facility] [employer] [place] [address] Referral ID Status Reason Start Date Expiration Date V isits Requested Visits Authorized [id number] Closed Auto-Generate d Referral 10/11/2023 10/10/2024 15 1 Reason Onset Date Comments Care 10/14/2023 Specialty Diagnoses / Procedures Referred By Ivelisse lee Referred To Contact [facility] Diagnoses 23 weeks gestation of Encounter for supervision of high risk in second trimester, antepartum Chronic hypertension affecting POTS (postural orthostatic tachycardia syndrome) Tachycardia Procedures OBSTETRIC ULTRASOUND WHI US PREG UTERUS AFTER 1ST TRIMEST GESTATION Jen Arredondo MD [address] [place] [address] [facility] [address] [address] Referral ID Status Reason Start Date Expiration Date V isits Requested Visits Authorized [id number] Closed Auto-Generate d Referral 09/07/2023 09/06/2024 8 1 Reason Comments Patient Question Patient Update Reason Comments Ear Pain With drainage and si nus problem x 2 weeks Specialty Diagnoses / Procedures Referred By Contac t Referred To Contact Echocardiography Diagnoses TIA (transient ischemic attack) Procedures ECHOCARDIOGRAM MS ECHO HEART XTHORACIC,COMPLETE W DOPPLER Jean Govea, ARBORICULTURIST-CHECK WEIGHER [address] [place] [address] Echocardiography [place] [address] [place] [address] Referral ID Status Reason Start Date Expiration Date Visits Re quested Visits Authorized [id number] Closed 04/24/2023 05/18/2024 1 1 Reason Comments Initial OB Visit Reason Comments Appointment Reason Onset Date Comments Care 07/13/2023 Reason Onset Date Comments Care Care 07/25/2023 Reason Comments New Patient Specialty Diagnoses / Procedures Referred By Contac t Referred To Contact Neurology Diagnoses Encounter for supervision of high risk in second trimester, antepartum 13 weeks gestation of TIA (transient ischemic attack) Procedures CONSULT TO NEUROLOGY OFFICE/OUTPATIENT NEW HIGH MDM 60 MINUTES Ivett Palomo APRN.CNP [address] [address] Referral ID Status Reason Start Date Expiration Date V isits Requested Visits Authorized [id number] Closed PCP Requested Referral 07/01/2023 06/30/2024 1 1 Reason Onset Date Comments Care 08/16/2023 Reason Comments Care US Specialty Diagnoses / Procedures Referred By Contac t Referred To Contact Diagnoses Encounter for supervision of high risk in second trimester, antepartum 13 weeks gestation of Chronic hypertension affecting History of intrauterine in previous TIA (transient ischemic attack) Procedures CONSULT TO MATERNAL MEDI OFFICE/OUTPATIENT NEW HIGH MDM 60 MINUTES Ivett Palomo APRN.CNP [address] [place] [address] Referral ID Status Reason Start Date Expiration Date V isits Requested Visits Authorized [id number] Closed PCP Requested Referral Auto-Generated Referral 07/01/2023 06/30/2024 1 1 Reason Onset Date Comments Care 09/07/2023 Reason Comments Referral Information Reason Comments Blood Pressure Reason Onset Date Comments Care 10/18/2023 Reason Onset Date Comments Care 10/21/2023 Reason Onset Date Comments Care 10/25/2023 Reason Onset Date Comments Care 10/26/2023 Reason Comments Migraine Specialty Diagnoses / Procedures Referred By Contac t Referred To Contact Neurology Diagnoses Migraine with aura and without status migrainosus, not intractable Procedures CONSULT TO NEUROLOGY OFFICE/OUTPATIENT [facility] 60 MINUTES Sneha Cardenas APRN.CHECK WEIGHER [address] [place] [address] Referral ID Status Reason Start Date Expiration Date V isits Requested Visits Authorized [id number] Closed PCP Requested Referral 08/02/2023 08/01/2024 1 1 Reason Onset Date Comments Care 11/01/2023 Reason Onset Date Comments Care 11/04/2023 Reason Onset Date Comments Care 11/07/2023 Reason Onset Date Comments Care 11/15/2023 Reason Onset Date Comments Care 11/18/2023 Reason Onset Date Comments Care 11/21/2023 Reason Onset Date Comments Care 11/25/2023 Reason Comments Ob Delivery Note Reason Comments Medication Update Reason Onset Date Comments Care 11/28/2023 Reason Comments Migraine Specialty Diagnoses / Procedures Referred By Contac t Referred To Contact Diagnoses Migraine with aura and without status migrainosus, not intractable Procedures PROVIDER ORDERED FOLLOW UP OFFICE/OUTPATIENT [facility] [address] [place] [address] [place] [address] Referral ID Status Reason Start Date Expiration Date V isits Requested Visits Authorized [id number] Closed PCP Requested Referral 01/08/2024 10/24/2024 1 1 Reason Comments Care Reason Comments Imaging/Records Reason Comments Ear Pain Cough Reason Comments Menstrual Problem Has been having 2 pe riods per month since July Reason Comments Menstrual Problem Reason Comments Heavy Bleeding Reason Comments Endometrial Biopsy Specialty Diagnoses / Procedures Referred By Contac t Referred To [facility] Diagnoses Abnormal uterine bleeding (AUB) Procedures ENDOMETRIAL BIOPSY ENDOMETRIAL BX W/WO ENDOCERVIX BX W/O DILAT SPX Geovanna Avilez APRN.CNJim [address] [place] [address] Phone: tel: fax: [facility] [address] [place] [phone] Referral ID Status Reason Start Date Expiration Date V isits Requested Visits Authorized [id number] Closed Auto-Generate d Referral 12/25/2024 12/25/2025 1 1 Care Teams (unrecognized sec tion and content) Wildlife Management Professor Relationship Specialty Start Date End Date Ottoniel Encarnacion [address] [place] [address] PCP - General Family Practice 02/13/20 Wildlife Management Professor Relationship Specialty Start Date End Date Ottoniel Encarnacion [address] [place] [address] PCP - General Family Medicine 02/13/20 Wildlife Management Professor Relationship Specialty Start Date End Date Ottoniel Encarnacion FNP PCP - General Certified Nurse Practitioner 06/14/16 Wildlife Management Professor Relationship Specialty Start Date End Date Ottoniel Encarnacion FNP PCP - General Certified Nurse Practitioner 06/14/16 Wildlife Management Professor Relationship Specialty Start Date End Date Ottoniel Encarnacion CNP [address] [place] [address] PCP - General Family Medicine 02/13/20 Wildlife Management Professor Relationship Specialty Start Date End Date Ottoniel Encarnacion CNP [address] [place] [address] PCP - General Family Medicine 02/13/20 Wildlife Management Professor Relationship Specialty Start Date End Date Ottoniel Encarnacion CNP [address] [place] [address] PCP - General Family Medicine 02/13/20 Wildlife Management Professor Relationship Specialty Start Date End Date Ottoniel Encarnacion CNP [address] [place] [address] PCP - General Family Medicine 02/13/20 Wildlife Management Professor Relationship Specialty Start Date End Date Ottoniel Encarnacion CNP [address] [place] [address] PCP - General Family Medicine 02/13/20 Wildlife Management Professor Relationship Specialty Start Date End Date Ottoniel Encarnacion CNP [address] [place] [address] PCP - General Family Medicine 02/13/20 Wildlife Management Professor Relationship Specialty Start Date End Date Ottoniel Encarnacion CNP [address] [place] [address] PCP - General Family Medicine 02/13/20 Wildlife Management Professor Relationship Specialty Start Date End Date Ottoniel Encarnacion CNP [address] [place] [address] PCP - General Family Medicine 02/13/20 Wildlife Management Professor Relationship Specialty Start Date End Date Ottoniel Encarnacion CNP [address] [place] [address] PCP - General Family Medicine 02/13/20 Wildlife Management Professor Relationship Specialty Start Date End Date Ottoniel Encarnacion CNP [address] [place] [address] PCP - General Family Medicine 02/13/20 Wildlife Management Professor Relationship Specialty Start Date End Date Ottoniel Encarnacion CNP [address] [place] [address] PCP - General Family Medicine 02/13/20 Wildlife Management Professor Relationship Specialty Start Date End Date Ottoniel Encarnacion CNP [address] [place] [address] (Fax) PCP - General Family Medicine 02/13/20 Wildlife Management Professor Relationship Specialty Start Date End Date Ottoniel Encarnacion CNP [address] [place] [address] PCP - General Family Medicine 02/13/20 Team Status: Active Member Role Status Dates Ottoniel Encarnacion CALENDER INSPECTOR, CALENDER INSPECTOR-C Family Provider Active Ottoniel Encarnacion CALENDER INSPECTOR, CALENDER INSPECTOR-C Primary Care Provider Active Team Status: Inactive Member Role Status Dates Ottoniel Encarnacion CALENDER INSPECTOR, CALENDER INSPECTOR-C Primary Care Provider Active Dr. Tabby Krueger MD Attending Provider, Referring Provider Active Wildlife Management Professor Relationship Specialty Start Date End Date Ottoniel Encarnacion CNP [address] [place] [address] PCP - General Family Medicine 02/13/20 Wildlife Management Professor Relationship Specialty Start Date End Date Ottoniel Encarnacion CNP [address] [place] [address] PCP - General Family Medicine 02/13/20 Wildlife Management Professor Relationship Specialty Start Date End Date Ottoniel Encarnacion CNP [address] [facility] [place] [address] (Fax) PCP - General Family Medicine 02/13/20 Wildlife Management Professor Relationship Specialty Start Date End Date Ottoniel Encarnacion CNP [address] [facility] [address] PCP - General Family Medicine 02/13/20 Wildlife Management Professor Relationship Specialty Start Date End Date Ottoniel Encarnacion CNP [address] [place] [address] PCP - General Family Medicine 02/13/20 Wildlife Management Professor Relationship Specialty Start Date End Date Ottoniel Encarnacion CNP [address] [place] [address] PCP - General Family Medicine 02/13/20 Wildlife Management Professor Relationship Specialty Start Date End Date Ottoniel Encarnacion CNP [address] [place] [address] PCP - General Family Medicine 02/13/20 Wildlife Management Professor Relationship Specialty Start Date End Date Ottoniel Encarnacion CNP [address] [place] [address] PCP - General Family Medicine 02/13/20 Wildlife Management Professor Relationship Specialty Start Date End Date Ottoniel Encarnacion CNP [address] [place] [address] PCP - General Family Medicine 02/13/20 Wildlife Management Professor Relationship Specialty Start Date End Date Ottoniel Encarnacion CNP [address] [place] [address] PCP - General Family Medicine 02/13/20 Wildlife Management Professor Relationship Specialty Start Date End Date Ottoniel Encarnacion CNP [address] [place] [address] PCP - General Family Medicine 02/13/20 Wildlife Management Professor Relationship Specialty Start Date End Date Ottoniel Encarnacion CNP [address] [place] [address] (Fax) PCP - General Family Medicine 02/13/20 Wildlife Management Professor Relationship Specialty Start Date End Date Ottoniel Encarnacion CNP [address] [place] [address] (Fax) PCP - General Family Medicine 02/13/20 Wildlife Management Professor Relationship Specialty Start Date End Date Ottoniel Encarnacion CNP [address] [place] [address] (Fax) PCP - General Family Medicine 02/13/20 Wildlife Management Professor Relationship Specialty Start Date End Date Ottoniel Encarnacion CNP [address] [place] [address] (Fax) PCP - General Family Medicine 02/13/20 Wildlife Management Professor Relationship Specialty Start Date End Date Ottoniel Encarnacion CNP [address] [place] [address] (Fax) PCP - General Family Medicine 02/13/20 Wildlife Management Professor Relationship Specialty Start Date End Date Ottoniel Encarnacion CNP [address] [place] [address] (Fax) PCP - General Family Medicine 02/13/20 Wildlife Management Professor Relationship Specialty Start Date End Date Ottoniel Encarnacion CNP [address] [place] [address] PCP - General Family Medicine 02/13/20 Wildlife Management Professor Relationship Specialty Start Date End Date Ottoniel Encarnacion CNP [address] [place] [address] PCP - General Family Medicine 02/13/20 Wildlife Management Professor Relationship Specialty Start Date End Date Ottoniel Encarnacion CNP [address] [place] [address] PCP - General Family Medicine 02/13/20 Wildlife Management Professor Relationship Specialty Start Date End Date Ottoniel Encarnacion CNP [address] [place] [address] PCP - General Family Medicine 02/13/20 Wildlife Management Professor Relationship Specialty Start Date End Date Ottoniel Encarnacion CNP [address] [facility] [address] PCP - General Family Medicine 02/13/20 Wildlife Management Professor Relationship Specialty Start Date End Date Ottoniel Encarnacion CNP [address] [place] [address] PCP - General Family Medicine 02/13/20 Wildlife Management Professor Relationship Specialty Start Date End Date Ottoniel Encarnacion CNP [address] [place] [address] PCP - General Family Medicine 02/13/20 Wildlife Management Professor Relationship Specialty Start Date End Date Ottoniel Encarnacion CNP [address] [place] [address] PCP - General Family Medicine 02/13/20 Wildlife Management Professor Relationship Specialty Start Date End Date Ottoniel Encarnacion CNP [address] [place] [address] PCP - General Family Medicine 02/13/20 Wildlife Management Professor Relationship Specialty Start Date End Date Ottoniel Encarnacion CNP [address] [place] [address] (Fax) PCP - General Family Medicine 02/13/20 Wildlife Management Professor Relationship Specialty Start Date End Date Ottoniel Encarnacion CNP [address] [place] [address] (Fax) PCP - General Family Medicine 02/13/20 Wildlife Management Professor Relationship Specialty Start Date End Date Ottoniel Encarnacion CNP [address] [place] [address] (Fax) PCP - General Family Medicine 02/13/20 Wildlife Management Professor Relationship Specialty Start Date End Date Ottoniel Encarnacion CNP [address] [place] [address] (Fax) PCP - General Family Medicine 02/13/20 Wildlife Management Professor Relationship Specialty Start Date End Date Ottoniel Encarnacion CNP [address] [place] [address] (Fax) PCP - General Family Medicine 02/13/20 Wildlife Management Professor Relationship Specialty Start Date End Date Ottoniel Encarnacion CNP [address] [place] [address] (Fax) PCP - General Family Medicine 02/13/20 Wildlife Management Professor Relationship Specialty Start Date End Date Ottoniel Encarnacion CNP [address] [place] [address] PCP - General Family Medicine 02/13/20 Goals (unrecognized section and content) Goals may be documented in a n alternate sectionGoals may be documented in an alternate section Scheduled Active and Recently Administ ered Medications (unrecognized section and content) Medication Order 04/22/2023 04/23/2023 04/24/2023 Ketorolac (TORADOL) injection 15 mg (COMPLETED) 15 mg, Intravenous, ONCE, 1 dose, On 04/24/23 at 1100 1106 (Given - Provid er: Saima Danielson, JUAN) Labetalol (NORMODYNE) tablet 50 mg 50 mg, Oral, EVERY 12 HOURS, First dose on 04/23/23 at 2230, Until Discontinued 2255 (Given - Provider: Beatrice Arzola RN) 0816 (Given - Provider: Saima Danielson, RN) PRN Medication Order 04/22/2023 04/23/2023 04/24/2023 Acetaminophen (TYLENOL) tablet 650 mg 650 mg, Oral, EVERY 6 HOURS NEEDED, Starting on 04/23/23 at 2200, Until 04/24/23 at 1333, Mild Pain, Oral temp > 100.4 F, Do not administer unless Dysphagia Screen has been documented as passed; or if liver disease, or elevated Liver Function Tests. 0816 (Given - Provid er: Saima Danielson RN) Ondansetron (ZOFRAN) tablet 4 mg(Linked Group 1) 4 mg, Oral, EVERY 4 HOURS NEEDED, Starting on 04/23/23 at 2200, Until 04/24/23 at 1333, Nausea / Vomiting Ondansetron 4mg/2ml (ZOFRAN) injection 4 mg(Linked Group 1) 4 mg, Intravenous, EVERY 4 HOURS NEEDED, Starting on 04/23/23 at 2200, Until 04/24/23 at 1333, Nausea / Vomiting Linked Groups Order Group 1: Ondansetron 4mg/2ml (ZOFRAN) injection 4 mgJump to med 4 mg, Intravenous, EVERY 4 HOURS NEEDED, Starting on 04/23/23 at 2200, Until 04/24/23 at 1333, Nausea / Vomiting Or Ondansetron (ZOFRAN) tablet 4 mgJump to med 4 mg, Oral, EVERY 4 HOURS NEEDED, Starting on 04/23/23 at 2200, Until 04/24/23 at 1333, Nausea / Vomiting FOR RECORDS PERTAINING TO PATIENTS WHO ARE OR HAVE BEEN ENROLLED IN A CHEMICAL DEPENDENCY/SUBSTANCEABUSE PROGRAM, SOME INFORMATION MAY BE OMITTED. This clinical summary was aggregated from multiple sources. Caution should be exercised in using it in the provision of clinical care. This summary normalizes information from multiple sources, and as a consequence, information in this document may materially change the coding, format and clinical context of patient data. In addition, data may be omitted in some cases. CLINICAL DECISIONS SHOULD BE BASED ON THE PRIMARY CLINICAL RECORDS. [employer] [facility]. provides no warranty or guarantee of the accuracy or completeness of information in this document.
[2025-04-25] MEDS: Magnesium 1 GM over 15 mins IV (06:17)
[2025-04-25] MEDS: Lactated Ringers 1,000 ML 40 ML IV (06:17)
[2025-04-25] MEDS: metroNIDAZOLE 500 MG/100 ML BAG 100 MG IV (06:17)
[2025-04-25 06:24] LABS: Internal QC Validated? YES +Cl - CLEAR BKGD
[2025-04-25 06:26] LABS: Pregnancy, Urine Positive Negative
[2025-04-25 07:17] LABS: hCG Titer Quant., Serum 3273 mIU/mL (<9 non-preg)
--- OUTSIDE RECORDS SUMMARY | 2025-05-20 11:04 | XMS RPT_ITS ---
Author Name Auto Generated Organization [facility] Care Team Providers Care Tortilla Maker Name Role Phone OTTONIEL BYERS Primary Care Physician UnavailTABBY Salas Attending Physician Unavailab Nunez Unavailable Unavailable JENIFFER STYLES Attending Physician Unavailable OTTONIEL BYERS Primary Care Physician UnavailJE Fabian Attending Physician Unavailable OTTONIEL BYERS Primary Care Physician Unavailab JE Harris Unavailable Unavailable OTTONIEL BYERS Primary Care Physician Unavailab JE Harris Unavailable Unavailable OTTONIEL BYERS Primary Care Physician Unavailab JE Harris Attending Physician Unavailable OTTONIEL BYERS Primary Care Physician Unavailab JE Harris Unavailable Unavailable OTTONIEL BYERS Primary Care Physician UnavailJE Fabian Attending Physician Unavailable OTTONIEL BYERS Primary Care Physician Unavailab TABBY Moncada Attending Physician Unavailab OTTONIEL Roe Primary Care Physician Unavailab TABBY Moncada Attending Physician UnavailOTTONIEL Morel Primary Care Physician Unavailab DAXA Layne Attending Physician Unavailable OTTONIEL BYERS Primary Care Physician Unavailab DAXA Layne Unavailable Unavailable OTTONIEL BYERS Primary Care Physician Unavailab DAXA Layne Unavailable Unavailable OTTONIEL BYERS Primary Care Physician Unavailab TABBY Moncada Attending Physician UnavailOTTONIEL Morel Primary Care Physician Unavailab TABBY Moncada Attending Physician UnavailOTTONIEL Morel Unavailable Unavailable TABBY KRUEGER Attending Physician TABBY Argueta Primary Care Physician TABBY Sheppard Admitting Physician Marko valentin PROVIDER, UNKNOWN Unavailable Unavailable PROBLEMS DATE TYPE CONDITION / CODE ATTENDING STATUS [facility] 05/20/2025 Active Problem Visit / UNK(Unknown) TABBY KRUEGER Active [facility] 05/01/2025 Active with u ncertain dates in first trimester ([facility]) / Z34.91(ICD-10) TABBY KRUEGER Active [facility] 04/26/2025 Active Encounter for pr egnancy test, result positive ([facility]) / Z32.01(ICD-10) DAXA QURESHI Active [facility] 04/26/2025 Active Vaginal bleeding during ([facility]) / O46.90(ICD-10) DAXA QURESHI Active [facility] 02/07/2025 Active Excessive and fr equent menstruation with irregular cycle / N92.1(ICD-10) TABBY KRUEGER Active [facility] 10/27/2024 Active Subseptate uteru s / Q51.22(ICD-10) TABBY KRUEGER Active [facility] 10/27/2024 Active Adenomyosis of u terus / N80.03(ICD-10) JE AVILEZ Active [facility] 01/08/2025 Active Irregular menstr uation / N92.6(ICD-10) JE AVILEZ Active [facility] 10/22/2024 Active Other secondary hypertension / I15.8(ICD-10) JE AVILEZ Active [facility] 10/22/[address] D (sexually transmitted disease) / Z11.3(ICD-10) JE AVILEZ Active [facility] 10/22/2024 Active Irregular menses / N92.6(ICD-10) JE AVILEZ Active [facility] 10/22/2024 Active Abnormal uterine bleeding (AUB) / N93.9(ICD-10) JE AVILEZ Active [facility] 10/22/2024 Active Dysmenorrhea / N94.6(ICD-10) JE AVILEZ Active [facility] 09/30/2024 Active Sinobronchitis / J32.9(ICD-10) XIOMARA JENIFFER Active [facility] 09/30/2024 Active Sinobronchitis / J40(ICD-10) XIOMARA JENIFFER Active [facility] RESULTS PROGRESS Observed: 05/20/2025 5:08 PM Status: COMPLETED Source: [facility] HNO ID: [id number] Author: TABBY KRUEGER MD Service: ? Author Type: Physician Type: Progress Notes Filed: 05/20/2025 17:17 Note Text: Pedrito Reyes is a 35 year old female who presents for problem visit for threatened ab. HPI: 35 YOF continues to have cramping, bleeding. Passed 3 large clots 2 days ago now dark brown bleeding. Feels tired and some nausea, feels . No other concerns. OB History Gravida5 Para3 Term1 Preterm2 AB0 Living2 SAB0 IAB0 Ectopic0 Multiple0 Live Births2 [place] History LMP: 04/11/2025, Age at Menarche: Age at First : Age at Menopause: [place] History Comments: Sexual Activity: Yes; Male Contraception: No contraception data on record PAST MEDICAL HISTORY Diagnosis Date - Anemia 07/2018 - Arachnoid cyst - History of intrauterine in previous 07/01/2023 - Hx of preeclampsia, prior , currently (HCC) 01/2021 Around 32weeks - Left lower quadrant abdominal pain 07/01/2023 Reports random sharp pain to left side. Likely round ligament pain. To notify if persistent or worsening. - Lyme disease - Mesenteric lymphadenitis - POTS (postural orthostatic tachycardia syndrome) - TIA (transient ischemic attack) 04/2023 - Vaginal bleeding in , first trimester (HCC) 07/01/2023 Per OB records, humza gestational hemorrhage: 2.4 cm on dating ultrasound. Reviewed likely the cause of her bleeding and that it likely resolved. Plans for NT scan and will confirm. No further bleeding. PAST SURGICAL HISTORY Procedure Laterality Date - DELIVERY ONLY 2021 - DELIVERY ONLY 11/30/2023 LTCS - D AND C 07/17/2018 FOr retained POC - EXCIS UTERINE FIBROID,VAG APPRCH 07/2018 - PORT Insertion AND removal x 2 - REMOVAL GALLBLADDER FAMILY HISTORY Problem Relation Age of Onset - No Known Problems Mother - Hypertension Father - other (Sloping Brain Syndrome) Father - Hypertension Sister - No Known Problems Sister - Heart Attack Maternal Grandmother - Stroke Maternal Grandmother 63 - No Known Problems Maternal Grandfather Social History Social History Tobacco Use - Smoking status: Never Passive exposure: Never - Smokeless tobacco: Never Vaping Use - Vaping status: Never Used Substance Use Topics - Alcohol use: Never - Drug use: Never Current Outpatient Medications Medication Sig - aspirin, enteric coated (ASPIRIN, ENTERIC COATED) 81 mg EC tablet Take 81 mg by mouth once daily. - labetalol HCl (LABETALOL, BULK, MISC) 100 mg once daily. - PNV no.95/ferrous fum/folic ac ( ORAL) Take by mouth. No current facility-administered medications for this visit. Allergies As of Date: 05/20/2025 Allergen Noted Reaction ADHESIVE TAPE-SILICONES 02/27/2019 Rash LATEX, NATURAL RUBBER 04/04/2018 Hives and Rash NIFEDIPINE 10/11/2023 Rash ADHESIVE TAPE (ROSINS) 02/16/2019 Rash LATEX 02/20/2019 Rash SULFA (SULFONAMIDE ANTIBIOTICS) 02/20/2019 Rash VENOM-HONEY BEE 12/03/2020 Swelling Fully Assessed 05/20/2025 Allergies and current medication updated:Yes SENSITIVE EXAM: The sensitive examination was discussed with the Patient or Patient's Authorized Parole Agent. As applicable, any other physician, advance practice provider, medical student, or other health professional student that will be observing or involved in the sensitive examination for educational or training purposes was discussed with the Patient or Authorized Parole Agent. The Patient or Authorized Parole Agent has agreed to proceed with the sensitive examination. (Sensitive examination includes inspection and/or palpation of the breasts, pelvis, prostate and anorectal regions). EXAM: BP 122/74 Wt 195 lb (88.5kg) LMP 04/11/2025 GENERAL: pleasant, female in no apparent distress PELVIC: external genitalia normal, normal Bartholin's glands, urethra, Blue's glands, no vulvar lesions, no cervical lesions, good vaginal support, physiologic discharge present, normal appearing perineal body and perianal region, nonfriable cervix w/ 3 cc of dark brown mucous/blood in vault, no bright red, no active bleeding from cervix TVUS done single IUP w/ cardiac activity 172 bpm. CRL c/w 8 w5d. Growth consistent from last visit. No obvious clots seen today in the uterus. ASSESSMENT AND PLAN: Assessment AND Plan Threatened (HCC) Subchorionic hematoma in first trimester, single or unspecified fetus (HCC) 8 weeks gestation of (HCC) call if bleeding increases, otherwise schedule NOB and second OB visit cont. PNV approx NIELS 12/27 based on US Supervision of high risk in first trimester (HCC) Orders: - OBSTETRIC ULTRASOUND [facility]; Standing Tabby Krueger MD CNOV Observed: 05/20/2025 4:30 PM Status: COMPLETED Source: [facility] Office Visit (OBGYWM) PEDRITO REYES ([id number]) 1990 F Date Time Provider Department 05/20/25 4:30 PM TABBY KRUEGER OBGYWM During your visit today, we recorded the following information about you: Blood pressure Weight 122/74 88.5 kg Alek Sandhu LPN 05/20/2025 5:17 PM Signed Patient declined supervisor title. PEARL Norton Rebecca L, MD 05/20/2025 5:17 PM Signed Pedrito Reyes is a 35 year old female who presents for problem visit for threatened ab. HPI: 35 YOF continues to have cramping, bleeding. Passed 3 large clots 2 days ago now dark brown bleeding. Feels tired and some nausea, feels . No other concerns. OB History Gravida5 Para3 Term1 Preterm2 AB0 Living2 SAB0 IAB0 Ectopic0 Multiple0 Live Births2 [place] History LMP: 04/11/2025, Age at Menarche: Age at First : Age at Menopause: [place] History Comments: Sexual Activity: Yes; Male Contraception: No contraception data on record PAST MEDICAL HISTORY Diagnosis Date Anemia 07/2018 Arachnoid cyst History of intrauterine in previous 07/01/2023 Hx of preeclampsia, prior , currently ([facility]) 01/2021 Around 32weeks Left lower quadrant abdominal pain 07/01/2023 Reports random sharp pain to left side. Likely round ligament pain. To notify if persistent or worsening. Lyme disease Mesenteric lymphadenitis POTS (postural orthostatic tachycardia syndrome) TIA (transient ischemic attack) 04/2023 Vaginal bleeding in , first trimester ([facility]) 07/01/2023 Per OB records, humza gestational hemorrhage: 2.4 cm on dating ultrasound. Reviewed likely the cause of her bleeding and that it likely resolved. Plans for NT scan and will confirm. No further bleeding. PAST SURGICAL HISTORY Procedure Laterality Date DELIVERY ONLY 2021 DELIVERY ONLY 11/30/2023 LTCS D AND C 07/17/2018 FOr retained POC [facility] PORT Insertion AND removal x 2 REMOVAL GALLBLADDER FAMILY HISTORY Problem Relation Age of Onset No Known Problems Mother Hypertension Father other (Sloping Brain Syndrome) Father Hypertension Sister No Known Problems Sister Heart Attack Maternal Grandmother Stroke Maternal Grandmother 63 No Known Problems Maternal Grandfather Social History[1] Current Outpatient Medications Medication Sig aspirin, enteric coated (ASPIRIN, ENTERIC COATED) 81 mg EC tablet Take 81 mg by mouth once daily. labetalol HCl (LABETALOL, BULK, MISC) 100 mg once daily. PNV no.95/ferrous fum/folic ac ( ORAL) Take by mouth. No current facility-administered medications for this visit. Allergies As of Date: 05/20/2025 Allergen Noted Reaction ADHESIVE TAPE-SILICONES 02/27/2019 Rash LATEX, NATURAL RUBBER 04/04/2018 Hives and Rash NIFEDIPINE 10/11/2023 Rash ADHESIVE TAPE (ROSINS) 02/16/2019 Rash LATEX 02/20/2019 Rash SULFA (SULFONAMIDE ANTIBIOTICS) 02/20/2019 Rash VENOM-HONEY BEE 12/03/2020 Swelling Fully Assessed 05/20/2025 Allergies and current medication updated:Yes SENSITIVE EXAM: The sensitive examination was discussed with the Patient or Patient's Authorized Parole Agent. As applicable, any other physician, advance practice provider, medical student, or other health professional student that will be observing or involved in the sensitive examination for educational or training purposes was discussed with the Patient or Authorized Parole Agent. The Patient or Authorized Parole Agent has agreed to proceed with the sensitive examination. (Sensitive examination includes inspection and/or palpation of the breasts, pelvis, prostate and anorectal regions). EXAM: BP 122/74 Wt 195 lb (88.5kg) LMP 04/11/2025 GENERAL: pleasant, female in no apparent distress PELVIC: external genitalia normal, normal Bartholin's glands, urethra, Blue's glands, no vulvar lesions, no cervical lesions, good vaginal support, physiologic discharge present, normal appearing perineal body and perianal region, nonfriable cervix w/ 3 cc of dark brown mucous/blood in vault, no bright red, no active bleeding from cervix TVUS done single IUP w/ cardiac activity 172 bpm. CRL c/w 8 w5d. Growth consistent from last visit. No obvious clots seen today in the uterus. ASSESSMENT AND PLAN: Assessment AND Plan Threatened (HCC) Subchorionic hematoma in first trimester, single or unspecified fetus (HCC) 8 weeks gestation of (HCC) call if bleeding increases, otherwise schedule NOB and second OB visit cont. PNV approx NIELS 12/27 based on US Supervision of high risk in first trimester (HCC) Orders: OBSTETRIC ULTRASOUND [facility]; Standing Tabby Krugeer MD [1] Social History Tobacco Use Smoking status: Never Passive exposure: Never Smokeless tobacco: Never Vaping Use Vaping status: Never Used Substance Use Topics Alcohol use: Never Drug use: Never Tabby Krueger MD 05/20/2025 5:17 PM Written Allergies As of Date: 05/20/2025 Noted Allergy Reaction ADHESIVE TAPE-SILICONES 02/27/2019 2 - Rash Comments: Tegaderm dressing LATEX, NATURAL RUBBER 04/04/2018 4 - Hives 2 - Rash NIFEDIPINE 10/11/2023 2 - Rash ADHESIVE TAPE (ROSINS) 02/16/2019 2 - Rash Comments: Tegaderm LATEX 02/20/2019 2 - Rash SULFA (SULFONAMIDE ANTIBIOTICS) 02/20/2019 2 - Rash VENOM-HONEY BEE 12/03/2020 7 - Swelling Date Reviewed: 05/20/2025 Reviewed by: Tabby Krueger MD - Fully Assessed Reason for Visit: Problem Visit [Other] Cmt: Patient reported passing clots, vaginal bleeding. Primary Visit Diagnosis:Threatened (HCC) [O20.0] Other Visit Diagnoses:Subchorionic hematoma in first trimester, single or unspecified fetus (HCC) [O41.8X10, O46.8X1] 8 weeks gestation of (HCC) [Z3A.08] Supervision of high risk in first trimester ([facility]) [O09.91] Order(s):OBSTETRIC ULTRASOUND [facility] [[id number]] Order #: [id number]: 1 STANDING Prescriptions as of 05/20/2025 - labetalol HCl (LABETALOL, BULK, MISC) 100 mg once daily. - PNV no.95/ferrous fum/folic ac ( ORAL) Take by mouth. Problem List As Of Date 05/20/2025 Noted Resolved Encounter for supervision of high [...] [R10.32] 07/01/2023 07/13/2023 with care elsewhere in [facility]*07/01/2023 12/02/2023 History of pre-eclampsia [Z87.59] 12/02/2023 Other secondary hypertension [I15.8] 10/22/2024 Subseptate uterus [Q51.22] 10/27/2024 Adenomyosis of uterus [N80.03] 10/27/2024 Excessive and frequent menstruation with irregu*02/07/2025 Subchorionic hematoma in first trimester (HCC) *05/01/2025 Medications Discontinued During This Encounter Prescriptions - aspirin, enteric coated (ASPIRIN, ENTERIC COATED) 81 mg EC tablet (Discontinued) Take 81 mg by mouth once daily. Encounter Status:Closed by TABBY KRUEGER on 05/20/25 PROGRESS Observed: 05/20/2025 4:28 PM Status: COMPLETED Source: [facility] HNO ID: [id number] Author: ALEK SANDHU LPN Service: ? Author Type: Licensed Nurse Type: Progress Notes Filed: 05/20/2025 17:17 Note Text: Patient declined supervisor title. Alek Sandhu LPN PROGRESS Observed: 05/10/2025 12:09 PM Status: COMPLETED Source: [facility] HNO ID: [id number] Author: TABBY KRUEGER MD Service: ? Author Type: Physician Type: Progress Notes Filed: 05/10/2025 12:11 Note Text: Obstetrics and Gynecology [place] REGISTERED DENTAL ASSISTANT RDA Visit Subjective Recording using ambient AI software for draft documentation of the visit was discussed with the patient/authorized dermatology sales representative; all questions welcomed and answered. Patient/authorized dermatology sales representative agreed to proceed CHIEF COMPLAINT: The patient is a 35-year-old female with a 7-week intrauterine , presenting for evaluation of vaginal bleeding with passage of clots. HPI: The patient is a 35-year-old female presenting with ongoing vaginal bleeding and clot passage during early . Vaginal Bleeding and Clot Passage - On , the patient experienced significant vaginal bleeding and passed a large clot, larger than previous ones, totaling 11 clots. - Bleeding was initially brown when discharged from the hospital on but turned red again yesterday afternoon. - Currently, bleeding is not as heavy as a menstrual period but is noticeable when wiping, with clots present. - Denies significant pain. - Nausea is intermittent. - Ultrasound on showed a heartbeat of 132 bpm; no definitive cause for bleeding was identified. - Hospital staff suggested the possibility of a second sac or a vanishing twin syndrome. 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 HISTORY: OB History Gravida5 Para3 Term1 Preterm2 AB0 Living2 SAB0 IAB0 Ectopic0 Multiple0 Live Births2 [place] History LMP: 04/11/2025, Age at Menarche: Age at First : Age at Menopause: [place] History Comments: Sexual Activity: Yes; Male Contraception: No contraception data on record PAST MEDICAL HISTORY Diagnosis Date - Anemia 07/2018 - Arachnoid cyst - History of intrauterine in previous 07/01/2023 - Hx of preeclampsia, prior , currently ([facility]) 01/2021 Around 32weeks - Left lower quadrant abdominal pain 07/01/2023 Reports random sharp pain to left side. Likely round ligament pain. To notify if persistent or worsening. - Lyme disease - Mesenteric lymphadenitis - POTS (postural orthostatic tachycardia syndrome) - TIA (transient ischemic attack) 04/2023 - Vaginal bleeding in , first trimester ([facility]) 07/01/2023 Per OB records, humza gestational hemorrhage: 2.4 cm on dating ultrasound. Reviewed likely the cause of her bleeding and that it likely resolved. Plans for NT scan and will confirm. No further bleeding. PAST SURGICAL HISTORY Procedure Laterality Date - DELIVERY ONLY 2021 - DELIVERY ONLY 11/30/2023 LTCS - D AND C 07/17/2018 FOr retained POC - [facility] - PORT Insertion AND removal x 2 - REMOVAL GALLBLADDER FAMILY HISTORY Problem Relation Age of Onset - No Known Problems Mother - Hypertension Father - other (Sloping Brain Syndrome) Father - Hypertension Sister - No Known Problems Sister - Heart Attack Maternal Grandmother - Stroke Maternal Grandmother 63 - No Known Problems Maternal Grandfather Social History Social History Tobacco Use - Smoking status: Never Passive exposure: Never - Smokeless tobacco: Never Vaping Use - Vaping status: Never Used Substance Use Topics - Alcohol use: Never - Drug use: Never Current Outpatient Medications Medication Sig - PNV no.95/ferrous fum/folic ac ( ORAL) Take by mouth. No current facility-administered medications for this visit. Allergies Allergen Reactions - Adhesive Tape-Silicones Rash Tegaderm dressing - Latex, Natural Rubber Hives and Rash - Nifedipine Rash - Adhesive Tape (Rosins) Rash Tegaderm - Latex Rash - Sulfa (Sulfonamide Antibiotics) Rash - Venom-Honey Bee Swelling REVIEW OF SYSTEMS: Genitourinary: (+) vaginal bleeding, (+) passage of blood clots, (-) pelvic pain Gastrointestinal: (+) nausea Objective SENSITIVE EXAM: The sensitive examination was discussed with the Patient or Patient's Authorized Parole Agent. As applicable, any other physician, advance practice provider, medical student, or other health professional student that will be observing or involved in the sensitive examination for educational or training purposes was discussed with the Patient or Authorized Parole Agent. The Patient or Authorized Parole Agent has agreed to proceed with the sensitive examination. (Sensitive examination includes inspection and/or palpation of the breasts, pelvis, prostate and anorectal regions). PHYSICAL EXAM: BP 112/78 Wt 191 lb (86.6kg) LMP 04/11/2025 GENERAL: Pleasant; in no apparent distress : - PELVIC: external genitalia normal, normal Bartholin's glands, urethra, Blue's glands, no vulvar lesions, cervix closed, smooth and non-friable, no cervical lesions, normal rugae, good vaginal support, small amount of dark brown discharge in the vault (approximately 3 cc), normal appearing perineal body and perianal region - BIMANUAL: uterus normal size, shape and consistency, no adnexal masses, non-tender Brief TVUS done, single intrauterine gestational sac- Embryo and yolk sac noted. Embryo 1.08 cm c/w 7w 1 d, cardiac activity noted at 135 bpm. There is a heterogenous collection in lower uterine segment, likely subchorionic hematoma. Assessment AND Plan ASSESSMENT AND PLAN: 1. Threatened (HCC) (O20.0) - Ongoing vaginal bleeding with passage of clots; cervical os closed on exam with small amount of brownish blood in the vaginal vault. - Recent ultrasound showed heart rate of 132 bpm and gestational age consistent with 7 weeks; subchorionic hematoma remains present. 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 - Instructed to monitor for increased bleeding, passage of large clots, or symptoms of dizziness, lightheadedness, or near-syncope; advised to contact the office immediately if these occur. - Follow-up scheduled for Tuesday the at 4:30 PM; will consider return to routine care if stable. Tabby Krueger MD CNOV Observed: 05/10/2025 10:40 AM Status: COMPLETED Source: [facility] Office Visit (OBGYWM) PEDRITO REYES ([id number]) 1990 F Date Time Provider Department 05/10/25 10:40 AM TABBY KRUEGER OBGYWJim During your visit today, we recorded the following information about you: Blood pressure Weight 112/78 86.6 kg Tabby Krueger MD 05/10/2025 12:11 PM Signed Obstetrics and Gynecology [place] REGISTERED DENTAL ASSISTANT RDA Visit Subjective Recording using [employer] software for draft documentation of the visit was discussed with the patient/authorized dermatology sales representative; all questions welcomed and answered. Patient/authorized dermatology sales representative agreed to proceed CHIEF COMPLAINT: The patient is a 35-year-old female with a 7-week intrauterine , presenting for evaluation of vaginal bleeding with passage of clots. HPI: The patient is a 35-year-old female presenting with ongoing vaginal bleeding and clot passage during early . Vaginal Bleeding and Clot Passage - On Chana, the patient experienced significant vaginal bleeding and passed a large clot, larger than previous ones, totaling 11 clots. - Bleeding was initially brown when discharged from the hospital on but turned red again yesterday afternoon. - Currently, bleeding is not as heavy as a menstrual period but is noticeable when wiping, with clots present. - Denies significant pain. - Nausea is intermittent. - Ultrasound on showed a heartbeat of 132 bpm; no definitive cause for bleeding was identified. - Hospital staff suggested the possibility of a second sac or a vanishing twin syndrome. 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 HISTORY: OB History Gravida5 Para3 Term1 Preterm2 AB0 Living2 SAB0 IAB0 Ectopic0 Multiple0 Live Births2 [place] History LMP: 04/11/2025, Age at Menarche: Age at First : Age at Menopause: [place] History Comments: Sexual Activity: Yes; Male Contraception: No contraception data on record PAST MEDICAL HISTORY Diagnosis Date Anemia 07/2018 Arachnoid cyst History of intrauterine in previous 07/01/2023 Hx of preeclampsia, prior , currently ([facility]) 01/2021 Around 32weeks Left lower quadrant abdominal [...] 07/2018 PORT Insertion AND removal x 2 REMOVAL GALLBLADDER FAMILY HISTORY Problem Relation Age of Onset No Known Problems Mother Hypertension Father other (Sloping Brain Syndrome) Father Hypertension Sister No Known Problems Sister Heart Attack Maternal Grandmother Stroke Maternal Grandmother 63 No Known Problems Maternal Grandfather Social History[1] Current Outpatient Medications Medication Sig PNV no.95/ferrous fum/folic ac ( ORAL) Take by mouth. No current facility-administered medications for this visit. Allergies Allergen Reactions Adhesive Tape-Silicones Rash Tegaderm dressing Latex, Natural Rubber Hives and Rash Nifedipine Rash Adhesive Tape (Rosins) Rash Tegaderm Latex Rash Sulfa (Sulfonamide Antibiotics) Rash Venom-Honey Bee Swelling REVIEW OF SYSTEMS: Genitourinary: (+) vaginal bleeding, (+) passage of blood clots, (-) pelvic pain Gastrointestinal: (+) nausea Objective SENSITIVE EXAM: The sensitive examination was discussed with the Patient or Patient's Authorized Parole Agent. As applicable, any other physician, advance practice provider, medical student, or other health professional student that will be observing or involved in the sensitive examination for educational or training purposes was discussed with the Patient or Authorized Parole Agent. The Patient or Authorized Parole Agent has agreed to proceed with the sensitive examination. (Sensitive examination includes inspection and/or palpation of the breasts, pelvis, prostate and anorectal regions). PHYSICAL EXAM: BP 112/78 Wt 191 lb (86.6kg) LMP 04/11/2025 GENERAL: Pleasant; in no apparent distress : - PELVIC: external genitalia normal, normal Bartholin's glands, urethra, Blue's glands, no vulvar lesions, cervix closed, smooth and non-friable, no cervical lesions, normal rugae, good vaginal support, small amount of dark brown discharge in the vault (approximately 3 cc), normal appearing perineal body and perianal region - BIMANUAL: uterus normal size, shape and consistency, no adnexal masses, non-tender Brief TVUS done, single intrauterine gestational sac- Embryo and yolk sac noted. Embryo 1.08 cm c/w 7w 1 d, cardiac activity noted at 135 bpm. There is a heterogenous collection in lower uterine segment, likely subchorionic hematoma. Assessment AND Plan ASSESSMENT AND PLAN: 1. Threatened (HCC) (O20.0) - Ongoing vaginal bleeding with passage of clots; cervical os closed on exam with small amount of brownish blood in the vaginal vault. - Recent ultrasound showed heart rate of 132 bpm and gestational age consistent with 7 weeks; subchorionic hematoma remains present. 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 - Instructed to monitor for increased bleeding, passage of large clots, or symptoms of dizziness, lightheadedness, or near-syncope; advised to contact the office immediately if these occur. - Follow-up scheduled for Tuesday the at 4:30 PM; will consider return to routine care if stable. Tabby Krueger MD [1] Social History Tobacco Use Smoking status: Never Passive exposure: Never Smokeless tobacco: Never Vaping Use Vaping status: Never Used Substance Use Topics Alcohol use: Never Drug use: Never Allergies As of Date: 05/10/2025 Noted Allergy Reaction ADHESIVE TAPE-SILICONES 02/27/2019 2 - Rash Comments: Tegaderm dressing LATEX, NATURAL RUBBER 04/04/2018 4 - Hives 2 - Rash NIFEDIPINE 10/11/2023 2 - Rash ADHESIVE TAPE (ROSINS) 02/16/2019 2 - Rash Comments: Tegaderm LATEX 02/20/2019 2 - Rash SULFA (SULFONAMIDE ANTIBIOTICS) 02/20/2019 2 - Rash VENOM-HONEY BEE 12/03/2020 7 - Swelling Date Reviewed: 05/01/2025 Reviewed by: Tabby Krueger MD - Fully Assessed Visit Diagnosis:Threatened (HCC) [O20.0] Prescriptions as of 05/10/2025 - PNV no.95/ferrous fum/folic ac ( ORAL) Take by mouth. Problem List As Of Date 05/10/2025 Noted Resolved Encounter for supervision of high [...] [R10.32] 07/01/2023 07/13/2023 with care elsewhere in [facility]*07/01/2023 12/02/2023 History of pre-eclampsia [Z87.59] 12/02/2023 Other secondary hypertension [I15.8] 10/22/2024 Subseptate uterus [Q51.22] 10/27/2024 Adenomyosis of uterus [N80.03] 10/27/2024 Excessive and frequent menstruation with irregu*02/07/2025 Subchorionic hematoma in first trimester (HCC) *05/01/2025 Encounter Status:Closed by TABBY KRUEGER on 05/10/25 KAELOV Observed: 05/01/2025 10:50 AM Status: COMPLETED Source: [facility] Office Visit (OBGYWM) PEDRITO REYES ([id number]) 1990 F Date Time Provider Department 05/01/25 10:50 AM TABBY KRUEGER OBGYWM During your visit today, we recorded the following information about you: Blood pressure Weight 122/78 87.1 kg Tabby Krueger MD 05/01/2025 3:00 PM Signed OB point of care ultrasound was performed. See imaging tab for details. Анна Alvarez MA Pedrito Reyes is a 35 year old female who presents for problem visit for f/u bleeding in .. HPI: 35 YOF s/p vaginal bleeding in . Bleeding stopped 2 days ago. Now just brown spotting. Nausea w/ one episode of emesis OB History Gravida5 Para3 Term1 Preterm2 AB0 Living2 SAB0 IAB0 Ectopic0 Multiple0 Live Births2 [place] History LMP: 04/11/2025, Age at Menarche: Age at First : Age at Menopause: [place] History Comments: Sexual Activity: Yes; Male Contraception: No contraception data on record PAST MEDICAL HISTORY Diagnosis Date Anemia 07/2018 Arachnoid cyst History of intrauterine in previous 07/01/2023 Hx of preeclampsia, prior , currently ([facility]) 01/2021 Around 32weeks Left lower quadrant abdominal pain 07/01/2023 Reports random sharp pain to left side. Likely round ligament pain. To notify if persistent or worsening. Lyme disease Mesenteric lymphadenitis POTS (postural orthostatic tachycardia syndrome) TIA (transient ischemic attack) 04/2023 Vaginal bleeding in , first trimester ([facility]) 07/01/2023 Per OB records, humza gestational hemorrhage: [...] 07/2018 PORT Insertion AND removal x 2 REMOVAL GALLBLADDER FAMILY HISTORY Problem Relation Age of Onset No Known Problems Mother Hypertension Father other (Sloping Brain Syndrome) Father Hypertension Sister No Known Problems Sister Heart Attack Maternal Grandmother Stroke Maternal Grandmother 63 No Known Problems Maternal Grandfather Social History[1] Current Outpatient Medications Medication Sig aspirin 81 mg cap Take 1 tablet by mouth once daily. labetalol (TRANDATE) 100 mg tablet Take 1 tablet by mouth two times a day. (Patient taking differently: Take 100 mg by mouth once daily.) PNV no.95/ferrous fum/folic ac ( ORAL) Take by mouth. loratadine (CLARITIN) 10 mg tablet Take 1 tablet by mouth once daily as needed (for allergy symptoms.). (Patient not taking: Reported on 05/01/2025) No current facility-administered medications for this visit. Allergies As of Date: 05/01/2025 Allergen Noted Reaction ADHESIVE TAPE-SILICONES 02/27/2019 Rash LATEX, NATURAL RUBBER 04/04/2018 Hives and Rash NIFEDIPINE 10/11/2023 Rash ADHESIVE TAPE (ROSINS) 02/16/2019 Rash LATEX 02/20/2019 Rash SULFA (SULFONAMIDE ANTIBIOTICS) 02/20/2019 Rash VENOM-HONEY BEE 12/03/2020 Swelling Fully Assessed 05/01/2025 Allergies and current medication updated:Yes SENSITIVE EXAM: The sensitive examination was discussed with the Patient or Patient's Authorized Parole Agent. As applicable, any other physician, advance practice provider, medical student, or other health professional student that will be observing or involved in the sensitive examination for educational or training purposes was discussed with the Patient or Authorized Parole Agent. The Patient or Authorized Parole Agent has agreed to proceed with the sensitive examination. (Sensitive examination includes inspection and/or palpation of the breasts, pelvis, prostate and anorectal regions). 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 Quant increased. No further quants needed. Subchorionic hematoma in first trimester, single or unspecified fetus (HCC) f/u US In 1-2 weeks, miscarriage precautions reviewed, cont. PNV Tabby Krueger MD [1] Social History Tobacco Use Smoking status: Never Passive exposure: Never Smokeless tobacco: Never Vaping Use Vaping status: Never Used Substance Use Topics Alcohol use: Never Drug use: Never Tabby Krueger MD 05/01/2025 2:11 PM Written f/u US In 1-2 weeks, miscarriage precautions reviewed, cont. PNV Allergies As of Date: 05/01/2025 Noted Allergy Reaction ADHESIVE TAPE-SILICONES 02/27/2019 2 - Rash Comments: Tegaderm dressing LATEX, NATURAL RUBBER 04/04/2018 4 - Hives 2 - Rash NIFEDIPINE 10/11/2023 2 - Rash ADHESIVE TAPE (ROSINS) 02/16/2019 2 - Rash Comments: Tegaderm LATEX 02/20/2019 2 - Rash SULFA (SULFONAMIDE ANTIBIOTICS) 02/20/2019 2 - Rash VENOM-HONEY BEE 12/03/2020 7 - Swelling Date Reviewed: 05/01/2025 Reviewed by: Tabby Krueger MD - Fully Assessed Primary Visit Diagnosis: with uncertain dates in first trimester (HCC) [Z34.91] Other Visit Diagnoses:Threatened (HCC) [O20.0] Subchorionic hematoma in first trimester, single or unspecified fetus (HCC) [O41.8X10, O46.8X1] Order(s):POC SHEAR GRINDER OPERATOR ULTRASOUND [[id number]] Order #: [id number]. #:[id number]: 1 Prescriptions as of 05/01/2025 - PNV no.95/ferrous fum/folic ac ( ORAL) Take by mouth. Problem List As Of Date 05/01/2025 Noted Resolved Encounter for supervision of high [...] [R10.32] 07/01/2023 07/13/2023 with care elsewhere in [facility]*07/01/2023 12/02/2023 History of pre-eclampsia [Z87.59] 12/02/2023 Other secondary hypertension [I15.8] 10/22/2024 Subseptate uterus [Q51.22] 10/27/2024 Adenomyosis of uterus [N80.03] 10/27/2024 Excessive and frequent menstruation with irregu*02/07/2025 Subchorionic hematoma in first trimester (HCC) *05/01/2025 Medications Discontinued During This Encounter Prescriptions - labetalol (TRANDATE) 100 mg tablet (Discontinued) Take 100 mg by mouth once daily. - loratadine (CLARITIN) 10 mg tablet (Discontinued) Reported on 05/01/2025 - aspirin 81 mg cap (Discontinued) Take 1 tablet by mouth once daily. Encounter Status:Closed by TABBY KRUEGER on 05/01/25 PROGRESS Observed: 05/01/2025 10:43 AM Status: COMPLETED Source: [facility] ID: [id number] Author: TABBY KRUEGER MD Service: ? Author Type: Physician Type: Progress Notes Filed: 05/01/2025 15:00 Note Text: OB point of care ultrasound was performed. See imaging tab for details. Анна Alvarez MA Pedrito Reyes is a 35 year old female who presents for problem visit for f/u bleeding in .. HPI: 35 YOF s/p vaginal bleeding in . Bleeding stopped 2 days ago. Now just brown spotting. Nausea w/ one episode of emesis OB History Gravida5 Para3 Term1 Preterm2 AB0 Living2 SAB0 IAB0 Ectopic0 Multiple0 Live Births2 [place] History LMP: 04/11/2025, Age at Menarche: Age at First : Age at Menopause: [place] History Comments: Sexual Activity: Yes; Male Contraception: No contraception data on record PAST MEDICAL HISTORY Diagnosis Date - Anemia 07/2018 - Arachnoid cyst - History of intrauterine in previous 07/01/2023 - Hx of preeclampsia, prior , currently ([facility]) 01/2021 Around 32weeks - Left lower quadrant abdominal pain 07/01/2023 Reports random sharp pain to left side. Likely round ligament pain. To notify if persistent or worsening. - Lyme disease - Mesenteric lymphadenitis - POTS (postural orthostatic tachycardia syndrome) - TIA (transient ischemic attack) 04/2023 - Vaginal bleeding in , first trimester ([facility]) 07/01/2023 Per OB records, humza gestational hemorrhage: 2.4 cm on dating ultrasound. Reviewed likely the cause of her bleeding and that it likely resolved. Plans for NT scan and will confirm. No further bleeding. PAST SURGICAL HISTORY Procedure Laterality Date - DELIVERY ONLY 2021 - DELIVERY ONLY 11/30/2023 LTCS - D AND C 07/17/2018 FOr retained POC [facility] - PORT Insertion AND removal x 2 - REMOVAL GALLBLADDER FAMILY HISTORY Problem Relation Age of Onset - No Known Problems Mother - Hypertension Father - other (Sloping Brain Syndrome) Father - Hypertension Sister - No Known Problems Sister - Heart Attack Maternal Grandmother - Stroke Maternal Grandmother 63 - No Known Problems Maternal Grandfather Social History Social History Tobacco Use - Smoking status: Never Passive exposure: Never - Smokeless tobacco: Never Vaping Use - Vaping status: Never Used Substance Use Topics - Alcohol use: Never - Drug use: Never Current Outpatient Medications Medication Sig - aspirin 81 mg cap Take 1 tablet by mouth once daily. - labetalol (TRANDATE) 100 mg tablet Take 1 tablet by mouth two times a day. (Patient taking differently: Take 100 mg by mouth once daily.) - PNV no.95/ferrous fum/folic ac ( ORAL) Take by mouth. - loratadine (CLARITIN) 10 mg tablet Take 1 tablet by mouth once daily as needed (for allergy symptoms.). (Patient not taking: Reported on 05/01/2025) No current facility-administered medications for this visit. Allergies As of Date: 05/01/2025 Allergen Noted Reaction ADHESIVE TAPE-SILICONES 02/27/2019 Rash LATEX, NATURAL RUBBER 04/04/2018 Hives and Rash NIFEDIPINE 10/11/2023 Rash ADHESIVE TAPE (ROSINS) 02/16/2019 Rash LATEX 02/20/2019 Rash SULFA (SULFONAMIDE ANTIBIOTICS) 02/20/2019 Rash VENOM-HONEY BEE 12/03/2020 Swelling Fully Assessed 05/01/2025 Allergies and current medication updated:Yes SENSITIVE EXAM: The sensitive examination was discussed with the Patient or Patient's Authorized Parole Agent. As applicable, any other physician, advance practice provider, medical student, or other health professional student that will be observing or involved in the sensitive examination for educational or training purposes was discussed with the Patient or Authorized Parole Agent. The Patient or Authorized Parole Agent has agreed to proceed with the sensitive examination. (Sensitive examination includes inspection and/or palpation of the breasts, pelvis, prostate and anorectal regions). 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 Quant increased. No further quants needed. Subchorionic hematoma in first trimester, single or unspecified fetus (HCC) f/u US In 1-2 weeks, miscarriage precautions reviewed, cont. PNV Tabby Krueger MD B-HCG SERPL-ACNC Collected: 5 10:15 AM Status: F Source: [facility] Order Comment: Specimen Type : BLOOD SPECIMEN Ordering Facility: [facility] Address: [address] [place] [address] TYPE CODE TESTS RESULT OUT OF RANGE REFERENCE UNITS LAB 46526-2(LOINC) B-HCG SerPl-aCnc 23570.0 High <5.0 mIU/mL Result Comment: QUANTITATIVE HCG NORMAL RANGES Weeks of Gestation (Weeks Since LMP) 3 Weeks (5.8-71.2 mIU/mL) 4 Weeks (9.5-750 mIU/mL) 5 Weeks (217-7138 mIU/mL) 6 Weeks (158-39517 mIU/mL) 7 Weeks (3697-403615 mIU/mL) 8 Weeks (28744-704879 mIU/mL) 9 Weeks (04849-372162 mIU/mL) 10 Weeks (19124-836598 mIU/mL) 12 Weeks (27431-529507 mIU/mL) Referenced to 4th IS of NIBSC Performed By: [facility] CLIA [id number] [address] [place] [address] [place] B-HCG SERPL-ACNC Collected: 8:14 AM Status: F Source: [facility] Order Comment: Specimen Type : BLOOD SPECIMEN Ordering Facility: [facility] Address: [address] [place] [address] TYPE CODE TESTS RESULT OUT OF RANGE REFERENCE UNITS LAB 96900-6(LOINC) B-HCG SerPl-aCnc 81910.0 High <5.0 mIU/mL Result Comment: QUANTITATIVE HCG NORMAL RANGES Weeks of Gestation (Weeks Since LMP) 3 Weeks (5.8-71.2 mIU/mL) 4 Weeks (9.5-750 mIU/mL) 5 Weeks (217-7138 mIU/mL) 6 Weeks (158-59633 mIU/mL) 7 Weeks (3697-989612 mIU/mL) 8 Weeks (80747-801372 mIU/mL) 9 Weeks (93583-465358 mIU/mL) 10 Weeks (17250-066129 mIU/mL) 12 Weeks (47864-840655 mIU/mL) Referenced to 4th IS of [facility] Performed By: [facility] CLIA [id number] [address] [place] [address] PROGRESS Observed: 04/26/2025 8:40 AM Status: COMPLETED Source: [facility] HNO ID: [id number] Author: DAXA QURESHI MD Service: ? Author Type: Physician Type: Progress Notes Filed: 04/26/2025 10:14 Note Text: Staff Nurse Anesthetist offered: Patient declines. Pedrito Reyes is a 35 year old female who presents for problem visit - cramping and bleeding. HPI: Was scheduled to have a hysterectomy yesterday which was cancelled due to . Heavier bleeding yesterday with passage of tissue. Bleeding is slower now. Mild cramping. No fevers, lightheadedness, dizziness. HCG quant 3273 yesterday. Unknown LMP with irregular periods. OB History Gravida4 Para3 Term1 Preterm2 AB0 Living2 SAB0 IAB0 Ectopic0 Multiple0 Live Births2 [place] History LMP: 04/11/2025, Having periods Age at Menarche: Age at First : Age at Menopause: [place] History Comments: Sexual Activity: Yes; Male Contraception: No contraception data on record PAST MEDICAL HISTORY Diagnosis Date - Anemia 07/2018 - Arachnoid cyst - History of intrauterine in previous 07/01/2023 - Hx of preeclampsia, prior , currently ([facility]) 01/2021 Around 32weeks - Left lower quadrant abdominal pain 07/01/2023 Reports random sharp pain to left side. Likely round ligament pain. To notify if persistent or worsening. - Lyme disease - Mesenteric lymphadenitis - POTS (postural orthostatic tachycardia syndrome) - TIA (transient ischemic attack) 04/2023 - Vaginal bleeding in , first trimester ([facility]) 07/01/2023 Per OB records, humza gestational hemorrhage: 2.4 cm on dating ultrasound. Reviewed likely the cause of her bleeding and that it likely resolved. Plans for NT scan and will confirm. No further bleeding. PAST SURGICAL HISTORY Procedure Laterality Date - DELIVERY ONLY 2021 - DELIVERY ONLY 11/30/2023 LTCS - D AND C 07/17/2018 FOr retained POC - EXCIS UTERINE FIBROID,VAG [facility] 07/2018 - PORT Insertion AND removal x 2 - REMOVAL GALLBLADDER FAMILY HISTORY Problem Relation Age of Onset - No Known Problems Mother - Hypertension Father - other (Sloping Brain Syndrome) Father - Hypertension Sister - No Known Problems Sister - Heart Attack Maternal Grandmother - Stroke Maternal Grandmother 63 - No Known Problems Maternal Grandfather Social History Social History Tobacco Use - Smoking status: Never Passive exposure: Never - Smokeless tobacco: Never Vaping Use - Vaping status: Never Used Substance Use Topics - Alcohol use: Never - Drug use: Never Current Outpatient Medications Medication Sig - aspirin 81 mg cap Take 1 tablet by mouth once daily. - labetalol (TRANDATE) 100 mg tablet Take 1 tablet by mouth two times a day. - PNV no.95/ferrous fum/folic ac ( ORAL) Take by mouth. - loratadine (CLARITIN) 10 mg tablet Take 1 tablet by mouth once daily as needed (for allergy symptoms.). (Patient not taking: Reported on 04/26/2025) No current facility-administered medications for this visit. Allergies As of Date: 04/26/2025 Allergen Noted Reaction ADHESIVE TAPE-SILICONES 02/27/2019 Rash LATEX, NATURAL RUBBER 04/04/2018 Hives and Rash NIFEDIPINE 10/11/2023 Rash ADHESIVE TAPE (ROSINS) 02/16/2019 Rash LATEX 02/20/2019 Rash SULFA (SULFONAMIDE ANTIBIOTICS) 02/20/2019 Rash VENOM-HONEY BEE 12/03/2020 Swelling Fully Assessed 04/26/2025 REVIEW OF SYSTEMS Expanded ROS: See HPI. Allergies and current medication updated:Yes SENSITIVE EXAM: The sensitive examination was discussed with the Patient or Patient's Authorized Parole Agent. As applicable, any other physician, advance practice provider, medical student, or other health professional student that will be observing or involved in the sensitive examination for educational or training purposes was discussed with the Patient or Authorized Parole Agent. The Patient or Authorized Parole Agent has agreed to proceed with the sensitive examination. (Sensitive examination includes inspection and/or palpation of the breasts, pelvis, prostate and anorectal regions). EXAM: BP 141/102 Pulse 100 Ht 5' 8 (1.73m) Wt 199 lb 9.6 oz (90.5kg) SpO2 100% LMP 04/11/2025 BMI 30.36 kg/(m2). GENERAL: pleasant, female in no apparent distress CHEST: Normal inspiratory effort ABDOMEN: soft, no masses, and non acute PELVIC: external genitalia normal, normal Bartholin's glands, urethra, Blue's glands, no vulvar lesions, no cervical lesions, good vaginal support, normal appearing perineal body and perianal region, scant dark brown blood NEURO: exam grossly non-focal EXTREMITIES: normal ASSESSMENT AND PLAN: Assessment AND Plan Encounter for test, result positive (HCC) Orders: - HCG QUANTITATIVE; Standing Vaginal bleeding during (HCC) Orders: - HCG QUANTITATIVE; Standing Bedside TVUS shows layering of blood and blood clot in endometrial cavity, a 5w4d size GS with a yolk sac in the lower uterine segment, no pole. Minimal bleeding on exam. Repeat HCG quant this weekend and discussed likely miscarriage. Order placed for serial HCG's. Follow up next week. Discussed expectations and reasons to call. Daxa Qureshi DO Medical Decision Making: Problems: Moderate: New problem with uncertain prognosis Data: Unique test(s) ordered: 1 Risk: Low: Low risk from testing/treatment Medical Decision Making Level: 3 - Low CNOV Observed: 04/26/2025 8:40 AM Status: COMPLETED Source: [facility] Office Visit (OBGYWM) PEDRITO REYES ([id number]) 1990 F Date Time Provider Department 04/26/25 8:40 AM DAXA QURESHI OBGYWM During your visit today, we recorded the following information about you: Pulse Blood pressure Weight Height 100/minute 141/102 90.5 kg 1.727 m Daxa Qureshi MD 04/26/2025 10:14 AM Signed Staff Nurse Anesthetist offered: Patient declines. Pedrito Reyes is a 35 year old female who presents for problem visit - cramping and bleeding. HPI: Was scheduled to have a hysterectomy yesterday which was cancelled due to . Heavier bleeding yesterday with passage of tissue. Bleeding is slower now. Mild cramping. No fevers, lightheadedness, dizziness. HCG quant 3273 yesterday. Unknown LMP with irregular periods. OB History Gravida4 Para3 Term1 Preterm2 AB0 Living2 SAB0 IAB0 Ectopic0 Multiple0 Live Births2 [place] History LMP: 04/11/2025, Having periods Age at Menarche: Age at First : Age at Menopause: [place] History Comments: Sexual Activity: Yes; Male Contraception: No contraception data on record PAST MEDICAL HISTORY Diagnosis Date Anemia 07/2018 Arachnoid cyst History of intrauterine in previous 07/01/2023 Hx of preeclampsia, prior , currently (HCC) 01/2021 Around 32weeks Left lower quadrant abdominal [...] 07/17/2018 FOr retained POC [facility] PORT Insertion AND removal x 2 REMOVAL GALLBLADDER FAMILY HISTORY Problem Relation Age of Onset No Known Problems Mother Hypertension Father other (Sloping Brain Syndrome) Father Hypertension Sister No Known Problems Sister Heart Attack Maternal Grandmother Stroke Maternal Grandmother 63 No Known Problems Maternal Grandfather Social History[1] Current Outpatient Medications Medication Sig aspirin 81 mg cap Take 1 tablet by mouth once daily. labetalol (TRANDATE) 100 mg tablet Take 1 tablet by mouth two times a day. PNV no.95/ferrous fum/folic ac ( ORAL) Take by mouth. loratadine (CLARITIN) 10 mg tablet Take 1 tablet by mouth once daily as needed (for allergy symptoms.). (Patient not taking: Reported on 04/26/2025) No current facility-administered medications for this visit. Allergies As of Date: 04/26/2025 Allergen Noted Reaction ADHESIVE TAPE-SILICONES 02/27/2019 Rash LATEX, NATURAL RUBBER 04/04/2018 Hives and Rash NIFEDIPINE 10/11/2023 Rash ADHESIVE TAPE (ROSINS) 02/16/2019 Rash LATEX 02/20/2019 Rash SULFA (SULFONAMIDE ANTIBIOTICS) 02/20/2019 Rash VENOM-HONEY BEE 12/03/2020 Swelling Fully Assessed 04/26/2025 REVIEW OF SYSTEMS Expanded ROS: See HPI. Allergies and current medication updated:Yes SENSITIVE EXAM: The sensitive examination was discussed with the Patient or Patient's Authorized Parole Agent. As applicable, any other physician, advance practice provider, medical student, or other health professional student that will be observing or involved in the sensitive examination for educational or training purposes was discussed with the Patient or Authorized Parole Agent. The Patient or Authorized Parole Agent has agreed to proceed with the sensitive examination. (Sensitive examination includes inspection and/or palpation of the breasts, pelvis, prostate and anorectal regions). EXAM: BP 141/102 Pulse 100 Ht 5' 8 (1.73m) Wt 199 lb 9.6 oz (90.5kg) SpO2 100% LMP 04/11/2025 BMI 30.36 kg/(m2). GENERAL: pleasant, female in no apparent distress CHEST: Normal inspiratory effort ABDOMEN: soft, no masses, and non acute PELVIC: external genitalia normal, normal Bartholin's glands, urethra, Blue's glands, no vulvar lesions, no cervical lesions, good vaginal support, normal appearing perineal body and perianal region, scant dark brown blood NEURO: exam grossly non-focal EXTREMITIES: normal ASSESSMENT AND PLAN: Assessment AND Plan Encounter for test, result positive (HCC) Orders: HCG QUANTITATIVE; Standing Vaginal bleeding during (HCC) Orders: HCG QUANTITATIVE; Standing Bedside TVUS shows layering of blood and blood clot in endometrial cavity, a 5w4d size GS with a yolk sac in the lower uterine segment, no pole. Minimal bleeding on exam. Repeat HCG quant this weekend and discussed likely miscarriage. Order placed for serial HCG's. Follow up next week. Discussed expectations and reasons to call. Daxa Qureshi DO Medical Decision Making: Problems: Moderate: New problem with uncertain prognosis Data: Unique test(s) ordered: 1 Risk: Low: Low risk from testing/treatment Medical Decision Making Level: 3 - Low [1] Social History Tobacco Use Smoking status: Never Passive exposure: Never Smokeless tobacco: Never Vaping Use Vaping status: Never Used Substance Use Topics Alcohol use: Never Drug use: Never Allergies As of Date: 04/26/2025 Noted Allergy Reaction ADHESIVE TAPE-SILICONES 02/27/2019 2 - Rash Comments: Tegaderm dressing LATEX, NATURAL RUBBER 04/04/2018 4 - Hives 2 - Rash NIFEDIPINE 10/11/2023 2 - Rash ADHESIVE TAPE (ROSINS) 02/16/2019 2 - Rash Comments: Tegaderm LATEX 02/20/2019 2 - Rash SULFA (SULFONAMIDE ANTIBIOTICS) 02/20/2019 2 - Rash VENOM-HONEY BEE 12/03/2020 7 - Swelling Date Reviewed: 04/26/2025 Reviewed by: Melida Davis MA - Fully Assessed Reason for Visit: Follow Up [171] Cmt: Heavy bleeding, positive test yesterday Primary Visit Diagnosis:Vaginal bleeding during (HCC) [O46.90] Other Visit Diagnosis:Encounter for test, result positive ([facility]) [Z32.01] Order(s):HCG QUANTITATIVE [SQHCGQT] Order #: [id number] STANDING Prescriptions as of 04/26/2025 - aspirin 81 mg cap Take 1 tablet by mouth once daily. - labetalol (TRANDATE) 100 mg tablet Take 1 tablet by mouth two times a day. - PNV no.95/ferrous fum/folic ac ( ORAL) Take by mouth. - loratadine (CLARITIN) 10 mg tablet Take 1 tablet by mouth once daily as needed (for allergy symptoms.). Problem List As Of Date 04/26/2025 Noted Resolved Encounter for supervision of high [...] [R10.32] 07/01/2023 07/13/2023 with care elsewhere in [facility]*07/01/2023 12/02/2023 History of pre-eclampsia [Z87.59] 12/02/2023 Other secondary hypertension [I15.8] 10/22/2024 Subseptate uterus [Q51.22] 10/27/2024 Adenomyosis of uterus [N80.03] 10/27/2024 Excessive and frequent menstruation with irregu*02/07/2025 Encounter Status:Closed by DAXA QURESHI on 04/26/25 ANASTASIA Observed: 04/25/2025 12:00 AM Status: COMPLETED Source: [facility] Telephone (OBGYWM) AMYPEDRITO ([id number]) 1990 F Date Time Provider Department 04/25/25 TABBY KRUEGER During your visit today, we recorded the following information about you: Jayden Maddox RN 04/25/2025 8:14 AM Signed Patient was scheduled for [facility] today. Had positive UPT. Hcg quant is 3273. Order form to to sign for patient to get repeat hcg done on 04/27/25. Will fax to [facility] lab once signed. JUAN Garcia Annalee, LPN 04/25/2025 3:09 PM Signed Patient called stating that after arriving home from the hospital today she began to have vaginal bleeding and thinks she had a miscarriage patient reports passing clots with tissue. Bleeding described has a heavy menses. Denies saturating a pad in less than an hour. No c/o dizziness, Shortness of Breath, chest pain. Please advise. Daxa Qureshi MD 04/25/2025 3:14 PM Signed Please give bleeding precautions and when to go to ER. Otherwise repeat HCG quant 48-72 hours from quant today and I have a form drafter opening tomorrow if she wants seen before the weekend thanks Delmy Caballero RN 04/25/2025 3:22 PM Signed Patient notified. Reviewed bleeding precautions. Patient agreeable to appointment tomorrow. Delmy Caballero RN Allergies As of Date: 04/25/2025 Noted Allergy Reaction ADHESIVE TAPE-SILICONES 02/27/2019 2 - Rash Comments: Tegaderm dressing LATEX, NATURAL RUBBER 04/04/2018 4 - Hives 2 - Rash NIFEDIPINE 10/11/2023 2 - Rash ADHESIVE TAPE (ROSINS) 02/16/2019 2 - Rash Comments: Tegaderm LATEX 02/20/2019 2 - Rash SULFA (SULFONAMIDE ANTIBIOTICS) 02/20/2019 2 - Rash VENOM-HONEY BEE 12/03/2020 7 - Swelling Date Reviewed: 04/12/2025 Reviewed by: Tabby Krueger MD - Fully Assessed Reason for Visit: Orders [681] Patient Update [1234] Prescriptions as of 04/25/2025 - aspirin 81 mg cap Take 1 tablet by mouth once daily. - labetalol (TRANDATE) 100 mg tablet Take 1 tablet by mouth two times a day. - PNV no.95/ferrous fum/folic ac ( ORAL) Take by mouth. - loratadine (CLARITIN) 10 mg tablet Take 1 tablet by mouth once daily as needed (for allergy symptoms.). Problem List As Of Date 04/25/2025 Noted Resolved Encounter for supervision of high [...] [R10.32] 07/01/2023 07/13/2023 with care elsewhere in [facility]*07/01/2023 12/02/2023 History of pre-eclampsia [Z87.59] 12/02/2023 Other secondary hypertension [I15.8] 10/22/2024 Subseptate uterus [Q51.22] 10/27/2024 Adenomyosis of uterus [N80.03] 10/27/2024 Excessive and frequent menstruation with irregu*02/07/2025 Encounter Status:Closed by DELMY CABALLERO on 04/25/25 PROGRESS Observed: 04/12/2025 3:51 PM Status: COMPLETED Source: [facility] HNO ID: [id number] Author: TABBY KRUEGER MD Service: ? Author Type: Physician Type: Progress Notes Filed: 04/12/2025 17:33 Note Text: Pedrito Reyes is a 35 year old female who presents for problem visit for heavy menses. HPI: 35 YOF has completed child bearing for f/u heavy menses. She has a lot of pain w/ her bleeding. Not a good endometrial ablation or Mirena IUS candidate due to septum in uterus and adenomyosis. H/o TIA so not combined hormonal contraceptive candidate. Progestin only options not satisfactory. Desires definitive therapy in form of hyst. OB History Gravida4 Para3 Term1 Preterm2 AB0 Living2 SAB0 IAB0 Ectopic0 Multiple0 Live Births2 [place] History LMP: 04/11/2025, Having periods Age at Menarche: Age at First : Age at Menopause: [place] History Comments: Sexual Activity: Yes; Male Contraception: No contraception data on record PAST MEDICAL HISTORY Diagnosis Date Anemia 07/2018 Arachnoid cyst History of intrauterine in previous 07/01/2023 Hx of preeclampsia, prior , currently (HCC) 01/2021 Around 32weeks Left lower quadrant abdominal [...] 07/17/2018 FOr retained [facility] PORT Insertion AND removal x 2 FAMILY HISTORY Problem Relation Age of Onset No Known Problems Mother Hypertension Father other (Sloping Brain Syndrome) Father Hypertension Sister No Known Problems Sister Heart Attack Maternal Grandmother Stroke Maternal Grandmother 63 No Known Problems Maternal Grandfather Social History[1] Current Outpatient Medications Medication Sig aspirin 81 mg cap Take 1 tablet by mouth once daily. labetalol (TRANDATE) 100 mg tablet Take 1 tablet by mouth two times a day. PNV no.95/ferrous fum/folic ac ( ORAL) Take by mouth. loratadine (CLARITIN) 10 mg tablet Take 1 tablet by mouth once daily as needed (for allergy symptoms.). No current facility-administered medications for this visit. Allergies As of Date: 04/12/2025 Allergen Noted Reaction ADHESIVE TAPE-SILICONES 02/27/2019 Rash LATEX, NATURAL RUBBER 04/04/2018 Hives and Rash NIFEDIPINE 10/11/2023 Rash ADHESIVE TAPE (ROSINS) 02/16/2019 Rash LATEX 02/20/2019 Rash SULFA (SULFONAMIDE ANTIBIOTICS) 02/20/2019 Rash VENOM-HONEY BEE 12/03/2020 Swelling Fully Assessed 04/12/2025 Allergies and current medication updated:Yes SENSITIVE EXAM: Sensitive exam not performed. EXAM: BP 118/82 Wt 196 lb (88.9kg) LMP 04/11/2025 GENERAL: pleasant, female in no apparent distress ASSESSMENT AND PLAN: Assessment AND Plan Adenomyosis of uterus Excessive and frequent menstruation with irregular cycle Subseptate uterus r/b/a/ to hysterectomy reviewed, questions answered and she desires to proceed. D/w her short and director long term care risks. D/w her preop and postop expectations, instructions and limitations. Tabby Krueger MD [1] Social History Tobacco Use Smoking status: Never Passive exposure: Never Smokeless tobacco: Never Vaping Use Vaping status: Never Used Substance Use Topics Alcohol use: Never Drug use: Never HISTORY PHYSICAL Observed: 04/12/2025 3:40 PM Status: COMPLETED Source: [facility] ID: [id number] Author: TABBY KRUEGER MD Service: ? Author Type: Physician Type: H&P Filed: 04/12/2025 17:33 Note Text: Pre-Op History and Physical HPI: The patient is a 35 year old female presenting for pre-operative visit. She is scheduled for TLH, bilateral salpingectomy and cystoscopy, for adenomyosis, menorrhagia with regular cycle and septate uterus on 04/25/25. Procedure discussed along with risks, benefits and complications. Other alternatives discussed for management. Consent form signed? Yes. PAST MEDICAL HISTORY Diagnosis Date Anemia 07/2018 Arachnoid cyst History of intrauterine in previous 07/01/2023 Hx of preeclampsia, prior , currently ([facility]) 01/2021 Around 32weeks Left lower quadrant abdominal pain 07/01/2023 Reports random sharp pain to left side. Likely round ligament pain. To notify if persistent or worsening. Lyme disease Mesenteric lymphadenitis POTS (postural orthostatic tachycardia syndrome) TIA (transient ischemic attack) 04/2023 Vaginal bleeding in , first trimester ([facility]) 07/01/2023 Per OB records, humza gestational hemorrhage: 2.4 cm on dating ultrasound. Reviewed likely the cause of her bleeding and that it likely resolved. Plans for NT scan and will confirm. No further bleeding. PAST SURGICAL HISTORY Procedure Laterality Date DELIVERY ONLY 2021 DELIVERY ONLY 11/30/2023 LTCS D AND C 07/17/2018 FOr retained [facility] PORT Insertion AND removal x 2 Current Outpatient Medications Medication Sig Dispense Refill labetalol (TRANDATE) 100 mg tablet Take 1 tablet by mouth two times a day. 60 tablet 1 PNV no.95/ferrous fum/folic ac ( ORAL) Take by mouth. loratadine (CLARITIN) 10 mg tablet Take 1 tablet by mouth once daily as needed (for allergy symptoms.). No current facility-administered medications for this visit. ALLERGIES: Adhesive Tape-Silicones; Latex, Natural Rubber; Nifedipine; Adhesive Tape (Rosins); Latex; Sulfa (Sulfonamide Antibiotics); and Venom-Honey Bee PERSONAL HISTORY: Social History[1] FAMILY HISTORY: FAMILY HISTORY Problem Relation Age of Onset No Known Problems Mother Hypertension Father other (Sloping Brain Syndrome) Father Hypertension Sister No Known Problems Sister Heart Attack Maternal Grandmother Stroke Maternal Grandmother 63 No Known Problems Maternal Grandfather REVIEW OF SYMPTOMS: GENERAL: denies fevers or chills ENDOCRINOLOGY: has not been on steroids Cardiology : denies palpitations or chest pain Respiratory: denies SOB or cough Hematology: denies history of prolonged bleeding or easy bruising or VTE Allergy: Denies history of personal or family history of allergy to anesthesia PHYSICAL EXAMINATION: VITALS: Last menstrual period 12/10/2024, not currently . GENERAL: The patient is well nourished, well hydrated in no acute distress. , The patient is oriented to time, place, and person. NECK: Supple. No lynphadenopathy, normal thyroid, no thyromegaly. LUNGS: Clear to auscultation bilaterally. no wheezes, rhonchi or rales HEART: Regular rate and rhythm, Normal heart sounds, and No murmurs or gallops Pelvic US 10/26/24 Indication Abnormal uterine bleeding, Dysmenorrhea Impression The [...] mm. There is no free fluid visualized. IMPRESSION: menorrhagia with regular cycle, adenomyosis, septate uterus PLAN: The risks/benefits/alternatives and personal involved for the planned TLH, bilateral salpingectomy and cystoscopy were reviewed with the patient. Her questions were answered to her satisfaction and she desires to proceed. Consent was signed. I reviewed with her postop instructions and expectations. I have reviewed and updated past medical and surgical history, medications and allergies Tabby Krueger M.D. [1] Social History Tobacco Use Smoking status: Never Passive exposure: Never Smokeless tobacco: Never Vaping Use Vaping status: Never Used Substance Use Topics Alcohol use: Never Drug use: Never CNOV Observed: 04/12/2025 3:40 PM Status: COMPLETED Source: [facility] Office Visit (OBGYWM) PEDRITO REYES ([id number]) 1990 F Date Time Provider Department 04/12/25 3:40 PM TABBY KRUEGER OBGYWM During your visit today, we recorded the following information about you: Blood pressure Weight Last Period 118/82 88.9 kg 04/11/25 Tabby Krueger MD 04/12/2025 5:33 PM Signed Pre-Op History and Physical HPI: The patient is a 35 year old female presenting for pre-operative visit. She is scheduled for TLH, bilateral salpingectomy and cystoscopy, for adenomyosis, menorrhagia with regular cycle and septate uterus on 04/25/25. Procedure discussed along with risks, benefits and complications. Other alternatives discussed for management. Consent form signed? Yes. PAST MEDICAL HISTORY Diagnosis Date Anemia 07/2018 Arachnoid cyst History of intrauterine in previous 07/01/2023 Hx of preeclampsia, prior , currently ([facility]) 01/2021 Around 32weeks Left lower quadrant abdominal pain 07/01/2023 Reports random sharp pain to left side. Likely round ligament pain. To notify if persistent or worsening. Lyme disease Mesenteric lymphadenitis POTS (postural orthostatic tachycardia syndrome) TIA (transient ischemic attack) 04/2023 Vaginal bleeding in , first trimester ([facility]) 07/01/2023 Per OB records, humza gestational hemorrhage: [...] 07/2018 PORT Insertion AND removal x 2 Current Outpatient Medications Medication Sig Dispense Refill labetalol (TRANDATE) 100 mg tablet Take 1 tablet by mouth two times a day. 60 tablet 1 PNV no.95/ferrous fum/folic ac ( ORAL) Take by mouth. loratadine (CLARITIN) 10 mg tablet Take 1 tablet by mouth once daily as needed (for allergy symptoms.). No current facility-administered medications for this visit. ALLERGIES: Adhesive Tape-Silicones; Latex, Natural Rubber; Nifedipine; Adhesive Tape (Rosins); Latex; Sulfa (Sulfonamide Antibiotics); and Venom-Honey Bee PERSONAL HISTORY: Social History[1] FAMILY HISTORY: FAMILY HISTORY Problem Relation Age of Onset No Known Problems Mother Hypertension Father other (Sloping Brain Syndrome) Father Hypertension Sister No Known Problems Sister Heart Attack Maternal Grandmother Stroke Maternal Grandmother 63 No Known Problems Maternal Grandfather REVIEW OF SYMPTOMS: GENERAL: denies fevers or chills ENDOCRINOLOGY: has not been on steroids Cardiology : denies palpitations or chest pain Respiratory: denies SOB or cough Hematology: denies history of prolonged bleeding or easy bruising or VTE Allergy: Denies history of personal or family history of allergy to anesthesia PHYSICAL EXAMINATION: VITALS: Last menstrual period 12/10/2024, not currently . GENERAL: The patient is well nourished, well hydrated in no acute distress. , The patient is oriented to time, place, and person. NECK: Supple. No lynphadenopathy, normal thyroid, no thyromegaly. LUNGS: Clear to auscultation bilaterally. no wheezes, rhonchi or rales HEART: Regular rate and rhythm, Normal heart sounds, and No murmurs or gallops Pelvic US 10/26/24 Indication Abnormal uterine bleeding, Dysmenorrhea Impression The [...] mm. There is no free fluid visualized. IMPRESSION: menorrhagia with regular cycle, adenomyosis, septate uterus PLAN: The risks/benefits/alternatives and personal involved for the planned TLH, bilateral salpingectomy and cystoscopy were reviewed with the patient. Her questions were answered to her satisfaction and she desires to proceed. Consent was signed. I reviewed with her postop instructions and expectations. I have reviewed and updated past medical and surgical history, medications and allergies Tabby Krueger M.D. [1] Social History Tobacco Use Smoking status: Never Passive exposure: Never Smokeless tobacco: Never Vaping Use Vaping status: Never Used Substance Use Topics Alcohol use: Never Drug use: Never Tabby Krueger MD 04/12/2025 5:33 PM Signed Pedrito Reyes is a 35 year old female who presents for problem visit for heavy menses. HPI: 35 YOF has completed child bearing for f/u heavy menses. She has a lot of pain w/ her bleeding. Not a good endometrial ablation or Mirena IUS candidate due to septum in uterus and adenomyosis. H/o TIA so not combined hormonal contraceptive candidate. Progestin only options not satisfactory. Desires definitive therapy in form of hyst. OB History Gravida4 Para3 Term1 Preterm2 AB0 Living2 SAB0 IAB0 Ectopic0 Multiple0 Live Births2 [place] History LMP: 04/11/2025, Having periods Age at Menarche: Age at First : Age at Menopause: [place] History Comments: Sexual Activity: Yes; Male Contraception: No contraception data on record PAST MEDICAL HISTORY Diagnosis Date Anemia 07/2018 Arachnoid cyst History of intrauterine in previous 07/01/2023 Hx of preeclampsia, prior , currently ([facility]) 01/2021 Around 32weeks Left lower quadrant abdominal pain 07/01/2023 Reports random sharp pain to left side. Likely round ligament pain. To notify if persistent or worsening. Lyme disease Mesenteric lymphadenitis POTS (postural orthostatic tachycardia syndrome) TIA (transient ischemic attack) 04/2023 Vaginal bleeding in , first trimester ([facility]) 07/01/2023 Per OB records, humza gestational hemorrhage: [...] 63 No Known Problems Maternal Grandfather Social History[1] Current Outpatient Medications Medication Sig aspirin 81 mg cap Take 1 tablet by mouth once daily. labetalol (TRANDATE) 100 mg tablet Take 1 tablet by mouth two times a day. PNV no.95/ferrous fum/folic ac ( ORAL) Take by mouth. loratadine (CLARITIN) 10 mg tablet Take 1 tablet by mouth once daily as needed (for allergy symptoms.). No current facility-administered medications for this visit. Allergies As of Date: 04/12/2025 Allergen Noted Reaction ADHESIVE TAPE-SILICONES 02/27/2019 Rash LATEX, NATURAL RUBBER 04/04/2018 Hives and Rash NIFEDIPINE 10/11/2023 Rash ADHESIVE TAPE (ROSINS) 02/16/2019 Rash LATEX 02/20/2019 Rash SULFA (SULFONAMIDE ANTIBIOTICS) 02/20/2019 Rash VENOM-HONEY BEE 12/03/2020 Swelling Fully Assessed 04/12/2025 Allergies and current medication updated:Yes SENSITIVE EXAM: Sensitive exam not performed. EXAM: BP 118/82 Wt 196 lb (88.9kg) LMP 04/11/2025 GENERAL: pleasant, female in no apparent distress ASSESSMENT AND PLAN: Assessment AND Plan Adenomyosis of uterus Excessive and frequent menstruation with irregular cycle Subseptate uterus r/b/a/ to hysterectomy reviewed, questions answered and she desires to proceed. D/w her short and intermediate risks. D/w her preop and postop expectations, instructions and limitations. Tabby Krueger MD [1] Social History Tobacco Use Smoking status: Never Passive exposure: Never Smokeless tobacco: Never Vaping Use Vaping status: Never Used Substance Use Topics Alcohol use: Never Drug use: Never Tabby Krueger MD 04/12/2025 5:25 PM Written Tabby Krueger MD 04/12/2025 5:25 PM Written Tabby Krueger MD 04/12/2025 5:25 PM Written Allergies As of Date: 04/12/2025 Noted Allergy Reaction ADHESIVE TAPE-SILICONES 02/27/2019 2 - Rash Comments: Tegaderm dressing LATEX, NATURAL RUBBER 04/04/2018 4 - Hives 2 - Rash NIFEDIPINE 10/11/2023 2 - Rash ADHESIVE TAPE (ROSINS) 02/16/2019 2 - Rash Comments: Tegaderm LATEX 02/20/2019 2 - Rash SULFA (SULFONAMIDE ANTIBIOTICS) 02/20/2019 2 - Rash VENOM-HONEY BEE 12/03/2020 7 - Swelling Date Reviewed: 04/12/2025 Reviewed by: Tabby Krueger MD - Fully Assessed Reason for Visit: Menstrual Problem [67] Primary Visit Diagnosis:Adenomyosis of uterus [N80.03] Other Visit Diagnoses:Excessive and frequent menstruation with irregular cycle [N92.1] Subseptate uterus [Q51.22] Prescriptions as of 04/12/2025 - aspirin 81 mg cap Take 1 tablet by mouth once daily. - labetalol (TRANDATE) 100 mg tablet Take 1 tablet by mouth two times a day. - PNV no.95/ferrous fum/folic ac ( ORAL) Take by mouth. - loratadine (CLARITIN) 10 mg tablet Take 1 tablet by mouth once daily as needed (for allergy symptoms.). Problem List As Of Date 04/12/2025 Noted Resolved Encounter for supervision of high [...] [R10.32] 07/01/2023 07/13/2023 with care elsewhere in [facility]*07/01/2023 12/02/2023 History of pre-eclampsia [Z87.59] 12/02/2023 Other secondary hypertension [I15.8] 10/22/2024 Subseptate uterus [Q51.22] 10/27/2024 Adenomyosis of uterus [N80.03] 10/27/2024 Excessive and frequent menstruation with irregu*02/07/2025 Encounter Status:Closed by TABBY KRUEGER on 04/12/25 CNCO Observed: 04/12/2025 12:00 AM Status: COMPLETED Source: [facility] Letter Text PROGRESS Observed: 02/07/2025 12:27 PM Status: COMPLETED Source: [facility] HNO ID: [id number] Author: TABBY KRUEGER MD Service: ? Author Type: Physician Type: Progress Notes Filed: 02/07/2025 13:05 Note Text: Obstetrics and Gynecology [place] REGISTERED DENTAL ASSISTANT RDA Visit Subjective Recording using ambient [employer] software for draft documentation of the visit was discussed with the patient/authorized dermatology sales representative; all questions welcomed and answered. Patient/authorized dermatology sales representative agreed to proceed CHIEF COMPLAINT: The [...] No history of hemorrhaging or blood transfusions [id number]; was anemic after the first and received [...] any history of hemorrhaging or blood transfusions [id number]; was anemic after the first and received [...] Living2 SAB0 IAB0 Ectopic0 Multiple0 Live Births2 [place] History LMP: 12/10/2024 (Exact Date), Having periods Age at Menarche: Age at First : Age at Menopause: [place] History Comments: Sexual Activity: Yes; Male Contraception: No contraception data on record PAST MEDICAL HISTORY Diagnosis Date Anemia 07/2018 Arachnoid cyst History of intrauterine in previous 07/01/2023 Hx of preeclampsia, prior , currently ([facility]) 01/2021 Around 32weeks Left lower quadrant abdominal pain 07/01/2023 Reports random sharp pain to left side. Likely round ligament pain. To notify if persistent or worsening. Lyme disease Mesenteric lymphadenitis POTS (postural orthostatic tachycardia syndrome) TIA (transient ischemic attack) 04/2023 Vaginal bleeding in , first trimester ([facility]) 07/01/2023 Per OB records, humza gestational hemorrhage: 2.4 cm on dating ultrasound. Reviewed likely the cause of her bleeding and that it likely resolved. Plans for NT scan and will confirm. No further bleeding. PAST SURGICAL HISTORY Procedure Laterality Date DELIVERY ONLY 2021 DELIVERY ONLY 11/30/2023 LTCS D AND C 07/17/2018 FOr retained [facility] PORT Insertion AND removal x 2 [...] Bee Swelling REVIEW OF SYSTEMS: Genitourinary: (+) heavy menstrual bleeding, (+) prolonged menstrual bleeding, (+) dysmenorrhea, (+) passage of large menstrual clots Objective SENSITIVE EXAM: Sensitive exam not performed. PHYSICAL EXAM: BP 120/68 Wt 190 lb (86.2kg) LMP 12/10/2024 GENERAL: Pleasant; in no apparent distress, well-nourished, well-developed Assessment AND Plan ASSESSMENT AND PLAN: 1. Adenomyosis of uterus (N80.03) 2. 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 Excessive and frequent menstruation with irregular cycle (N92.1) 4. Abnormal uterine bleeding (AUB) (N93.9) - Chronic, severe, and irregular AUB refractory to norethindrone and Aygestin; uterine septum confirmed on ultrasound in October. - Endometrial ablation discussed as an off-label option due to uterine anomaly; explained procedure, limitations, and that it may provide temporary relief but is not curative. - Hysterectomy recommended as definitive treatment; discussed risks (infection, injury to bowel/bladder/other organs, prolapse), laparoscopic approach, and expected recovery (2 hours, same-day discharge, 2 weeks off work, 8 weeks pelvic rest). - Patient educated on post-op restrictions (no heavy lifting, intercourse, or tub baths for 8 weeks); advised to avoid repetitive heavy lifting and maintain overall health to reduce prolapse risk. - Ovaries will be preserved to avoid surgical menopause. - Patient expressed understanding and agreement with plan; surgery scheduled for March 28. Not a combined hormonal contraceptive or IUD candidate due to uterine anomaly Tabby Krueger MD [1] Social History Tobacco Use Smoking status: Never Passive exposure: Never Smokeless tobacco: Never Vaping Use Vaping status: Never Used Substance Use Topics Alcohol use: Never Drug use: Never CNOV Observed: 02/07/2025 11:10 AM Status: COMPLETED Source: [facility] Office Visit (OBGYWM) PEDRITO REYES ([id number]) 1990 F Date Time Provider Department 02/07/25 11:10 AM TABBY KRUEGER OBGYWM During your visit today, we recorded the following information about you: Blood pressure Weight 120/68 86.2 kg Tabby Krueger MD 02/07/2025 1:05 PM Signed Obstetrics and Gynecology [place] REGISTERED DENTAL ASSISTANT RDA Visit Subjective Recording using ambient [employer] software for draft documentation of the visit was discussed with the patient/authorized dermatology sales representative; all questions welcomed and answered. Patient/authorized dermatology sales representative agreed to proceed CHIEF COMPLAINT: The [...] No history of hemorrhaging or blood transfusions [id number]; was anemic after the first and received [...] any history of hemorrhaging or blood transfusions [id number]; was anemic after the first and received [...] Living2 SAB0 IAB0 Ectopic0 Multiple0 Live Births2 [place] History LMP: 12/10/2024 (Exact Date), Having periods Age at Menarche: Age at First : Age at Menopause: Cherry [place] History Comments: Sexual Activity: Yes; Male Contraception: No contraception data on record PAST MEDICAL HISTORY Diagnosis Date Anemia 07/2018 Arachnoid cyst History of intrauterine in previous 07/01/2023 Hx of preeclampsia, prior , currently ([facility]) 01/2021 Around 32weeks Left lower quadrant abdominal pain 07/01/2023 Reports random sharp pain to left side. Likely round ligament pain. To notify if persistent or worsening. Lyme disease Mesenteric lymphadenitis POTS (postural orthostatic tachycardia syndrome) TIA (transient ischemic attack) 04/2023 Vaginal bleeding in , first trimester ([facility]) 07/01/2023 Per OB records, humza gestational hemorrhage: [...] Bee Swelling REVIEW OF SYSTEMS: Genitourinary: (+) heavy menstrual bleeding, (+) prolonged menstrual bleeding, (+) dysmenorrhea, (+) passage of large menstrual clots Objective SENSITIVE EXAM: Sensitive exam not performed. PHYSICAL EXAM: BP 120/68 Wt 190 lb (86.2kg) LMP 12/10/2024 GENERAL: Pleasant; in no apparent distress, well-nourished, well-developed Assessment AND Plan ASSESSMENT AND PLAN: 1. Adenomyosis of uterus (N80.03) 2. 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 Excessive and frequent menstruation with irregular cycle (N92.1) 4. Abnormal uterine bleeding (AUB) (N93.9) - Chronic, severe, and irregular AUB refractory to norethindrone and Aygestin; uterine septum confirmed on ultrasound in October. - Endometrial ablation discussed as an off-label option due to uterine anomaly; explained procedure, limitations, and that it may provide temporary relief but is not curative. - Hysterectomy recommended as definitive treatment; discussed risks (infection, injury to bowel/bladder/other organs, prolapse), laparoscopic approach, and expected recovery (2 hours, same-day discharge, 2 weeks off work, 8 weeks pelvic rest). - Patient educated on post-op restrictions (no heavy lifting, intercourse, or tub baths for 8 weeks); advised to avoid repetitive heavy lifting and maintain overall health to reduce prolapse risk. - Ovaries will be preserved to avoid surgical menopause. - Patient expressed understanding and agreement with plan; surgery scheduled for March 28. Not a combined hormonal contraceptive or IUD candidate due to uterine anomaly Tabby Krueger MD [1] Social History Tobacco Use Smoking status: Never Passive exposure: Never Smokeless tobacco: Never Vaping Use Vaping status: Never Used Substance Use Topics Alcohol use: Never Drug use: Never Allergies As of Date: 02/07/2025 Noted Allergy Reaction ADHESIVE TAPE-SILICONES 02/27/2019 2 - Rash Comments: Tegaderm dressing LATEX, NATURAL RUBBER 04/04/2018 4 - Hives 2 - Rash NIFEDIPINE 10/11/2023 2 - Rash ADHESIVE TAPE (ROSINS) 02/16/2019 2 - Rash Comments: Tegaderm LATEX 02/20/2019 2 - Rash SULFA (SULFONAMIDE ANTIBIOTICS) 02/20/2019 2 - Rash VENOM-HONEY BEE 12/03/2020 7 - Swelling Date Reviewed: 02/07/2025 Reviewed by: Tabby Krueger MD - Fully Assessed Reason for Visit: Discussion [813] Menstrual Problem [67] Primary Visit Diagnosis:Adenomyosis of uterus [N80.03] Other Visit Diagnoses:Subseptate uterus [Q51.22] Excessive and frequent menstruation with irregular cycle [N92.1] Abnormal uterine bleeding (AUB) [N93.9] Prescriptions as of 02/07/2025 - labetalol (TRANDATE) 100 mg tablet Take 1 tablet by mouth two times a day. - PNV no.95/ferrous fum/folic ac ( ORAL) Take by mouth. - loratadine (CLARITIN) 10 mg tablet Take 1 tablet by mouth once daily as needed (for allergy symptoms.). Problem List As Of Date 02/07/2025 Noted Resolved Encounter for supervision of high [...] [R10.32] 07/01/2023 07/13/2023 with care elsewhere in [facility]*07/01/2023 12/02/2023 History of pre-eclampsia [Z87.59] 12/02/2023 Other secondary hypertension [I15.8] 10/22/2024 Subseptate uterus [Q51.22] 10/27/2024 Adenomyosis of uterus [N80.03] 10/27/2024 Excessive and frequent menstruation with irregu*02/07/2025 Medications Discontinued During This Encounter Prescriptions - Norethindrone, Contraceptive, 0.35 mg tablet (Discontinued) Take 1 tablet by mouth once daily. - norethindrone (AYGESTIN) 5 mg tablet (Discontinued) 1 tab 3x/day until bleeding stops. 1 tab 2x/day x 2 days. 1 tab daily x 5 days Encounter Status:Closed by TABBY KRUEGER on 02/07/25 TISS PATH BX REPORT Collected: 01/09/20 2:17 PM Status: F Source: [facility] Order Comment: Specimen Type : TISSUE SPECIMEN Ordering Facility: [facility] Address: [address] [place] [address] TYPE CODE TESTS RESULT OUT OF RANGE REFERENCE UNITS PATHOLOGY [id number] CASE REPORT Result Comment: Surgical Pat hology Report Case: [id number] Authorizing Provider: Je Avilez APRN.CNM Collected: 01/08/2025 02:17 PM Ordering Location: OB/Gynecology Received: 01/08/2025 04:33 PM Pathologist: Kirsten Elias MD Specimen: Endometrium, Biopsy PATHOLOGY [id number] FINAL DIAGNOSIS Result Comment: Endometrium, biopsy: - Mid-to-late secretory pattern endometrium. at 1223 EDT PATHOLOGY [id number] GROSS DESCRIPTION Result Comment: A. Endometri um, Biopsy Received in formalin are multiple pisano-pink, soft feathery segments of tissue admixed with gelatinous material aggregating to 2.5 x 2.3 x 0.4 cm. Totally submitted in one cassette. [facility] January 08, 2025 8:20 PM Gross examination performed at [facility], [address] [place] [address] PATHOLOGY CDX2 CLINICAL HISTORY Adenomyosis of Uterus and Irregular Menses PATHOLOGY [facility] FINAL PERFORMING LAB Result Comment: Diagnostic i nterpretation performed at: [facility], [address] [place] [address], [place] [address] CLIA# [id number] Secretary Of State: Aroldo Vasquez MD PATHOLOGY [id number] AP DISCLAIMER Result Comment: Laboratory D eveloped Test (LDT) Disclaimer: Performance characteristics of immunohistochemical, immunofluorescent, and chromogenic in-situ hybridization tests have been determined by the performing laboratory within the [facility] Department of Pathology and Laboratory Medicine ([facility], [facility], [facility], [facility], [facility], [facility], or [facility]) in a manner consistent with CLIA requirements. One or more of these tests may not have been cleared or approved by the FDA. The [facility] Department of Pathology and Laboratory Medicine is regulated under CLIA as qualified to perform high-complexity testing. These tests are used for clinical purposes. These should not be regarded as investigational or for research. Positive and negative controls stain appropriately. Performed By: #### 32865-1 #### [facility] CLIA [id number] [address] [place] [address] OF [place] CNOV Observed: 01/08/2025 1:50 PM Status: COMPLETED Source: [facility] Office Visit (OBGYWM) PEDRITO REYES ([id number]) 1990 F Date Time Provider Department 01/08/25 1:50 PM JE AVILEZ During your visit today, we recorded the following information about you: Blood pressure Weight Last Period 124/80 85.7 kg 12/10/24 Je Avilez APRN.CNM 01/08/2025 3:57 PM Signed Staff Nurse Anesthetist offered: Patient declines. Pedrito is a 34 year old Female who [...] Will await results and then discuss further. Je Avilez APRN.CNM Saadia Calix MA 01/08/2025 1:44 PM Signed Post-Procedure Instructions [...] in 3 to 5 business days via TrackIF, unless a different method of communication was discussed today with your provider. Referring Provider: JE AVILEZ [[id number]] Allergies As of Date: 01/08/2025 Noted Allergy [...] Fully Assessed Reason for Visit: Endometrial Biopsy [8413] Primary Visit Diagnosis:Abnormal uterine bleeding (AUB) [N93.9] Other Visit Diagnoses:Adenomyosis of uterus [N80.03] Irregular menstruation [N92.6] Order(s):SURGICAL PATHOLOGY [QWR6222] Order #: [id number]. #:[id number] UA DIP,URINE HCG (POC) [3260822] Order #: [id number]. #:[id number] Prescriptions as of 01/08/2025 - Norethindrone, Contraceptive, [...] allergy symptoms.). Problem List As Of Date 01/08/2025 Noted Resolved Encounter for supervision of high [...] [R10.32] 07/01/2023 07/13/2023 with care elsewhere in [facility]*07/01/2023 12/02/2023 History of pre-eclampsia [Z87.59] 12/02/2023 Other secondary hypertension [I15.8] 10/22/2024 Subseptate uterus [Q51.22] 10/27/2024 Adenomyosis of uterus [N80.03] 10/27/2024 Other instructions from your clinician: Post-Procedure Instructions Endometrial Biopsy Instructions: You may [...] in 3 to 5 business days via [employer], unless a different method of communication was discussed today with your provider. Encounter Status:Closed by JE AVILEZ on 01/08/25 PROGRESS Observed: 01/08/2025 1:43 PM Status: COMPLETED Source: [facility] ID: [id number] Author: JE AVILEZ APRN.CNM Service: ? Author Type: Care Nurse Rn Type: Progress Notes Filed: 01/08/2025 15:57 Note Text: Staff Nurse Anesthetist offered: Patient declinesCha Major is a 34 year old Female who [...] Will await results and then discuss further. Je Avilez APRN.KAEL ANASTASIA Observed: 12/25/2024 12:00 AM Status: COMPLETED Source: [facility] Telephone (JOEGYWJim) PEDRITO REYES ([id number]) 1990 F Date Time Provider Department 12/25/24 JE AVILEZ During your visit today, we recorded the following information about you: Jayden Maddox, JUAN 12/25/2024 3:59 PM Signed Patient calling in [...] feeling fatigued. Please advise. JUAN Garcia Jessica, APRN.MITZI 12/25/2024 4:12 PM Signed Can she schedule for an endometrial biopsy and can discuss further. Thank you, Je Avilez APRN.Jayden Ly RN 12/25/2024 4:21 PM Signed How soon should she get EMB? You have no available form drafter slots until 01/15 for 15 min slot only. JUAN Garcia Jessica, APRN.MITZI 12/25/2024 4:38 PM Signed 01/08 at 1:50? Can add it or just put it in a spot Je Avilez APRN.Jayden Ly RN 12/25/2024 4:43 PM Signed Patient notified and scheduled for 01/08 with KIERSTEN. Jayden Maddox RN Allergies As of Date: 12/25/2024 Noted [...] Diagnosis:Abnormal uterine bleeding (AUB) [N93.9] Order(s):ENDOMETRIAL BIOPSY [[id number]] Order #: [id number] Prescriptions as of 12/25/2024 - Norethindrone, Contraceptive, [...] [R10.32] 07/01/2023 07/13/2023 with care elsewhere in [facility]*07/01/2023 12/02/2023 History of pre-eclampsia [Z87.59] 12/02/2023 Other secondary hypertension [I15.8] 10/22/2024 Subseptate uterus [Q51.22] 10/27/2024 Adenomyosis of uterus [N80.03] 10/27/2024 Encounter Status:Closed by JAYDEN MADDOX on 12/25/24 PROGRESS Observed: 11/05/2024 11:09 AM Status: COMPLETED Source: [facility] ID: [id number] Author: JE AVILEZ APRN.CNM Service: ? Author Type: Care Nurse Rn Type: Progress Notes Filed: 11/16/2024 07:33 Note Text: Obstetrics and Gynecology [place] REGISTERED DENTAL ASSISTANT RDA Visit Subjective Recording using [employer] software for draft documentation of the visit was discussed with the patient/authorized dermatology sales representative; all questions welcomed and answered. Patient/authorized dermatology sales representative agreed to proceed DISTANCE HEALTH VISIT This Team Access Model visit is a virtual encounter. It required patient-provider interaction for the medical decision making as documented below. I have communicated my name and active licensure. The patient's identity and physical location were verified at the time of this visit. Either the patient or their legal dermatology sales representative has been informed of the risks [...] Living2 SAB0 IAB0 Ectopic0 Multiple0 Live Births2 [place] History LMP: 10/03/2024 (Exact Date), Having periods Age at Menarche: Age at First : Age at Menopause: [place] History Comments: Sexual Activity: Yes; Male Contraception: No contraception data on record PAST MEDICAL HISTORY Diagnosis Date Anemia 07/2018 Arachnoid cyst History of intrauterine in previous 07/01/2023 Hx of preeclampsia, prior , currently ([facility]) 01/2021 Around 32weeks Left lower quadrant abdominal [...] external genitalia normal, normal Bartholin's glands, urethra, Blue's glands, no vulvar lesions, no cervical lesions, [...] of focal adenomyosis. Clinical correlation. Latest Ref [facility] 10/22/2024 WBC 3.70 - 11.00 k/uL 7.71 [...] Abs Lymph 1.00 - 4.00 k/uL 1.81 Hampton% % 8.0 Abs [place] <0.87 k/uL 0.62 Eosin% % 6.5 Abs Eosin <0.46 k/uL 0.50 (H) Baso% % 0.6 Abs Baso <0.11 k/uL 0.05 Immature Gran % % 0.3 IMMATURE GRANS (ABS) <0.10 k/uL <0.03 NRBC /100 WBC 0.0 Absolute nRBC <0.01 k/uL <0.01 DTYPE Auto TSH 0.270 - 4.200 mIU/L 0.837 Free T4 0.9 - 1.7 ng/dL 0.9 Legend: (H) High Assessment AND Plan ASSESSMENT AND PLAN: 1. Adenomyosis of [...] symptoms do not improve with medical management. Je Avilez APRN.CNM I spent 10 minutes in the visit, with more than 50% of the total pucj-vr-vkyy time of the visit in counseling / coordination of care. PROGRESS Observed: 10/27/2024 11:35 AM Status: COMPLETED Source: [facility] HNO ID: [id number] Author: KAYLYNN LOOMIS MD Service: ? Author Type: Physician Type: Progress Notes Filed: 10/27/2024 11:52 Note Text: The patient presents for requested ultrasound. Full report available in the Imaging tab in Epic. Kaylynn Loomis MD T4 FREE SERPL-MCNC Collected: 10/22/2024 2:24 PM Sta tus: F Source: [facility] Order Comment: Specimen Type : BLOOD SPECIMEN Ordering Facility: [facility] Address: [address] [place] [address] TYPE CODE TESTS RESULT OUT OF RANGE REFERENCE UNITS LAB 3024-7(LOINC) T4 Free SerPl-mCnc 0.9 0.9-1.7 ng/dL Performed By: [facility] CLIA [id number] [address] [place] [address] [place] [address] [place] TSH SERPL-ACNC Collected: 2:24 PM Status: F Source: [facility] Order Comment: Specimen Type : BLOOD SPECIMEN Ordering Facility: [facility] Address: [address] [place] [address] TYPE CODE TESTS RESULT OUT OF RANGE REFERENCE UNITS LAB 3016-3(LOINC) TSH SerPl-aCnc 0.837 0.270-4.200 mIU/L Result Comment: If the patie nt is , TSH reference range varies by gestational period: First Trimester (weeks 9-12): 0.180-2.990 mIU/L Second Trimester: 0.110-3.980 mIU/L Third Trimester: 0.480-4.710 mIU/L Noe Lynch et al. A Practical Approach for the Verifications and Determination of Site- and Trimester-Specific Reference Intervals for Thyroid Function tests in . Thyroid, 2019:29:3:412-420. Alberto Guzmán et al. 2017 Guidelines of the [place] Thy[employer] for the Diagnosis and Management of Thyroid Disease during and the . Thyroid, 2017:27:3:315-389. Performed By: [facility] CLIA [id number] [address] [place] [address] [place] CBC W AUTO DIFF BLD Collected: 10/22/2024 2:[address] atus: F Source: [facility] Order Comment: Specimen Type : BLOOD SPECIMEN Ordering Facility: [facility] Address: [address] [place] [address] TYPE CODE TESTS RESULT OUT OF RANGE REFERENCE UNITS LAB 6690-2(LOINC) WBC # Bld Auto 7.71 3.70-11.00 k/uL LAB 789-8(LOINC) RBC # Bld Auto 4.50 3.90-5.20 m/ uL LAB 718-7(LOINC) Hgb Bld-mCnc 13.1 11.5-15.5 g/dL LAB 4544-3(LOINC) Hct VFr Bld Auto 39.3 36.0-46.0 % LAB 787-2(LOINC) MCV RBC Auto 87.3 80.0-100.0 fL LAB 785-6(LOINC) MCH RBC Qn Auto 29.1 26.0-34.0 p g LAB 786-4(LOINC) MCHC RBC Auto-mCnc 33.3 30.5-36.0 g/dL LAB 21599-4([facility]) RDW RBC-Rto 12.6 11.5-15.0 % LAB 777-3([facility]) Platelet # Bld Auto 304 150-400 k/uL LAB 58445-0([facility]) PMV Bld Auto 10.2 9.0-12.7 fL LAB 770-8([facility]) Neutrophils/leuk NFr Bld Auto 61.1 % LAB 751-8([facility]) Neutrophils # Bld Auto 4.71 1.45-7.50 k/uL LAB 736-9([facility]) Lymphocytes/leuk NFr Bld Auto 23.5 % LAB 731-0([facility]) Lymphocytes # Bld Auto 1.81 1.00-4.00 k/uL LAB 5905-5([facility]) Monocytes/leuk NFr Bld Auto 8.0 % LAB 742-7([facility]) Monocytes # Bld Auto 0.62 <0.87 k/uL LAB 713-8([facility]) Eosinophil/leuk NFr Bld Auto 6.5 % LAB 711-2([facility]) Eosinophil # Bld Auto 0.50 High <0.46 k/uL LAB 706-2([facility]) Basophils/leuk NFr Bld Auto 0.6 % LAB 704-7([facility]) Basophils # Bld Auto 0.05 <0.11 k/uL LAB 46759-6([facility]) Imm Granulocytes/juana k NFr Bld Auto 0.3 % LAB 84652-8([facility]) Imm Granulocytes # Bld Auto <0.03 <0.10 k/uL LAB 70368-2([facility]) nRBC/100 WBC Bld-Rto 0.0 /100 WBC LAB 771-6([facility]) nRBC # Bld Auto <0.01 <0.01 k/u L LAB 14613-4([facility]) Differential method Bld Auto Performed By: [facility] CLIA [id number] [address] [place] [address] [place] CNOV Observed: 10/22/2024 1:45 PM Status: COMPLETED Source: [facility] Office Visit (OBGYWM) PEDRITO REYES ([id number]) 1990 F Date Time Provider Department 10/22/24 1:45 PM JE AVILEZ OBGYWM During your visit today, we recorded the following information about you: Blood pressure Weight Last Period 118/72 83.9 kg 10/03/24 Je Avilez APRN.CNM 10/22/2024 2:23 PM Signed Obstetrics and Gynecology [place] REGISTERED DENTAL ASSISTANT RDA Visit Subjective Recording using ambient [employer] software for draft documentation of the visit was discussed with the patient/authorized dermatology sales representative; all questions welcomed and answered. Patient/authorized dermatology sales representative agreed to proceed CHIEF COMPLAINT: Irregular [...] Living2 SAB0 IAB0 Ectopic0 Multiple0 Live Births2 [place] History LMP: 10/03/2024 (Exact Date), Having periods Age at Menarche: Age at First : Age at Menopause: [place] History Comments: Sexual Activity: Yes; Male Contraception: No contraception data on record PAST MEDICAL HISTORY Diagnosis Date Anemia 07/2018 Arachnoid cyst History of intrauterine in previous 07/01/2023 Hx of preeclampsia, prior , currently ([facility]) 01/2021 Around 32weeks Left lower quadrant abdominal pain 07/01/2023 Reports random sharp pain to left side. Likely round ligament pain. To notify if persistent or worsening. Lyme disease Mesenteric lymphadenitis POTS (postural orthostatic tachycardia syndrome) TIA (transient ischemic attack) 04/2023 Vaginal bleeding in , first trimester ([facility]) 07/01/2023 Per OB records, humza gestational hemorrhage: 2.4 cm on dating ultrasound. Reviewed likely the cause of her bleeding and that it likely resolved. Plans for NT scan and will confirm. No further bleeding. PAST SURGICAL HISTORY Procedure Laterality Date DELIVERY ONLY 2021 DELIVERY ONLY 11/30/2023 LTCS D AND C 07/17/2018 FOr retained POC [facility] PORT Insertion AND removal x 2 [...] discussed with the Patient or Patient's Authorized Parole Agent. As applicable, any other physician, advance practice provider, medical student, or other health professional student that will be observing or involved in the sensitive examination for educational or training purposes was discussed with the Patient or Authorized Parole Agent. The Patient or Authorized Parole Agent has agreed to proceed with the sensitive [...] external genitalia normal, normal Bartholin's glands, urethra, Blue's glands, no vulvar lesions, no cervical lesions, good vaginal support, physiologic discharge present, normal appearing perineal body and perianal region - BIMANUAL: uterus normal size, shape and consistency, no adnexal masses, left-sided pelvic pain on palpation - Patient consent for exam received NEURO: alert and oriented x3 EXTREMITIES: normal SENSITIVE EXAMINATION CONSENT: The sensitive examination was discussed with the Patient or Patient's Authorized Parole Agent. As applicable, any other physician, advance practice provider, medical student, or other health professional student that will be observing or involved in the sensitive examination for educational or training purposes was discussed with the Patient or Authorized Parole Agent. The Patient or Authorized Parole Agent has agreed to proceed with the sensitive examination. Assessment AND Plan ASSESSMENT AND PLAN: 1. Abnormal uterine [...] - [facility] and [facility] results and finalize treatment plan. Jemisa Avilez APRN.CNM Allergies As of Date: 10/22/2024 Noted Allergy Reaction ADHESIVE TAPE-SILICONES 02/27/2019 2 - Rash Comments: Tegaderm dressing LATEX, NATURAL RUBBER 04/04/2018 4 - Hives 2 - Rash NIFEDIPINE 10/11/2023 2 - Rash ADHESIVE TAPE (ROSINS) 02/16/2019 2 - Rash Comments: Tegaderm LATEX 02/20/2019 2 - Rash SULFA (SULFONAMIDE ANTIBIOTICS) 02/20/2019 2 - Rash VENOM-HONEY BEE 12/03/2020 7 - Swelling Date Reviewed: 10/22/2024 Reviewed by: Oswald Blandon MA - Fully Assessed Reason for Visit: Menstrual Problem [67] Cmt: Has been having 2 periods per month since July Primary Visit Diagnosis:Abnormal uterine bleeding (AUB) [N93.9] Other Visit Diagnosis:Dysmenorrhea [N94.6] Order(s):PELVIC US WHI [6306501] Order #: [id number]: 1 FUTURE THYROID STIMULATING HORMONE [SQTSH] Order #: [id number] FUTURE T4 FREE/FREE THYROXINE [SQFT4] Order #: [id number] FUTURE COMPLETE BLOOD COUNT AND DIFFERENTIAL [SQCBCDIF] Order #: [id number] FUTURE Prescriptions as of 10/22/2024 - labetalol (TRANDATE) 100 mg tablet Take 1 tablet by mouth two times a day. - PNV no.95/ferrous fum/folic ac ( ORAL) Take by mouth. - loratadine (CLARITIN) 10 mg tablet Take 1 tablet by mouth once daily as needed (for allergy symptoms.). Problem List As Of Date 10/22/2024 Noted Resolved Encounter for supervision of high [...] [R10.32] 07/01/2023 07/13/2023 with care elsewhere in [facility]*07/01/2023 12/02/2023 Hypertension in , preeclampsia, delive*12/02/2023 Other secondary hypertension [I15.8] 10/22/2024 Disposition: Return for pelvic ultrasound. Follow-up and Disposition History for Encounter Date Provider Department Center 10/22/2024 [id number] AVILEZ [place] [facility] Encounter Status:Closed by JE AVILEZ on 10/22/24 PROGRESS Observed: 10/22/2024 1:27 PM Status: COMPLETED Source: [facility] ID: [id number] Author: JE AVILEZ APRN.CNM Service: ? Author Type: Care Nurse Rn Type: Progress Notes Filed: 10/22/2024 14:23 Note Text: Obstetrics and Gynecology [place] REGISTERED DENTAL ASSISTANT RDA Visit Subjective Recording using [employer] software for draft documentation of the visit was discussed with the patient/authorized dermatology sales representative; all questions welcomed and answered. Patient/authorized dermatology sales representative agreed to proceed CHIEF COMPLAINT: Irregular [...] Living2 SAB0 IAB0 Ectopic0 Multiple0 Live Births2 [place] History LMP: 10/03/2024 (Exact Date), Having periods Age at Menarche: Age at First : Age at Menopause: [place] History Comments: Sexual Activity: Yes; Male Contraception: No contraception data on record PAST MEDICAL HISTORY Diagnosis Date Anemia 07/2018 Arachnoid cyst History of intrauterine in previous 07/01/2023 Hx of preeclampsia, prior , currently ([facility]) 01/2021 Around 32weeks Left lower quadrant abdominal pain 07/01/2023 Reports random sharp pain to left side. Likely round ligament pain. To notify if persistent or worsening. Lyme disease Mesenteric lymphadenitis POTS (postural orthostatic tachycardia syndrome) TIA (transient ischemic attack) 04/2023 Vaginal bleeding in , first trimester ([facility]) 07/01/2023 Per OB records, humza gestational hemorrhage: [...] discussed with the Patient or Patient's Authorized Parole Agent. As applicable, any other physician, advance practice provider, medical student, or other health professional student that will be observing or involved in the sensitive examination for educational or training purposes was discussed with the Patient or Authorized Parole Agent. The Patient or Authorized Parole Agent has agreed to proceed with the sensitive [...] external genitalia normal, normal Bartholin's glands, urethra, Blue's glands, no vulvar lesions, no cervical lesions, good vaginal support, physiologic discharge present, normal appearing perineal body and perianal region - BIMANUAL: uterus normal size, shape and consistency, no adnexal masses, left-sided pelvic pain on palpation - Patient consent for exam received NEURO: alert and oriented x3 EXTREMITIES: normal SENSITIVE EXAMINATION CONSENT: The sensitive examination was discussed with the Patient or Patient's Authorized Parole Agent. As applicable, any other physician, advance practice provider, medical student, or other health professional student that will be observing or involved in the sensitive examination for educational or training purposes was discussed with the Patient or Authorized Parole Agent. The Patient or Authorized Parole Agent has agreed to proceed with the sensitive examination. Assessment AND Plan ASSESSMENT AND PLAN: 1. Abnormal uterine [...] and ultrasound results and finalize treatment plan. Je Avilez APRN.MITZI PROGRESS Observed: 09/30/2024 3:03 PM Status: COMPLETED Source: [facility] HNO ID: [id number] Author: JENIFFER STYLES APRN.LARD MAKER Service: ? Author Type: Nurse Practitioner Type: Progress Notes Filed: 09/30/2024 15:21 Note Text: [facility] Subjective HPI HPI Pedrito Reyes is a 34 year old female who [...] 07/01/2023 Hx of preeclampsia, prior , currently ([facility]) 01/2021 Around 32weeks Left lower quadrant abdominal pain 07/01/2023 Reports random sharp pain to left side. Likely round ligament pain. To notify if persistent or worsening. Lyme disease Mesenteric lymphadenitis POTS (postural orthostatic tachycardia syndrome) TIA (transient ischemic attack) 04/2023 Vaginal bleeding in , first trimester ([facility]) 07/01/2023 Per OB records, humza gestational hemorrhage: 2.4 cm on dating ultrasound. Reviewed likely the cause of her bleeding and that it likely resolved. Plans for NT scan and will confirm. No further bleeding. PAST SURGICAL HISTORY Procedure Laterality Date DELIVERY ONLY 2021 DELIVERY ONLY 11/30/2023 LTCS D AND C 07/17/2018 FOr retained POC [facility] F[facility] PORT Insertion AND removal x 2 [...] MG-POTASSIUM CLAVULANATE 125 MG TABLET Jeniffer Styles APRN.CNP History and Record Review External record(s) reviewed: prior outpatient record. Disposition The patient was discharged. Procedures CNOV Observed: 09/30/2024 3:00 PM Status: COMPLETED Source: [facility] Office Visit (WSTR) PEDRITO REYES ([id number]) 1990 F Date Time Provider Department 09/30/24 3:00 PM JENIFFER STYLES KENDALL During your visit today, we recorded the following information about you: Temperature Pulse Blood pressure Weight 98.3 degrees 96/minute 140/80 83.9 kg Height 1.715 m Jeniffer Styles APRN.CNP 09/30/2024 3:21 PM Signed [facility] Subjective HPI HPI Pedrito Reyes is a 34 year old female who [...] 07/01/2023 Hx of preeclampsia, prior , currently ([facility]) 01/2021 Around 32weeks Left lower quadrant abdominal [...] MG-POTASSIUM CLAVULANATE 125 MG TABLET Jeniffer Styles APRN.LARD MAKER History and Record Review External record(s) reviewed: prior outpatient record. Disposition The patient was discharged. Procedures Referring Provider: SELF [200] Allergies As of Date: 09/30/2024 Noted Allergy Reaction ADHESIVE TAPE-SILICONES 02/27/2019 2 - Rash Comments: Tegaderm dressing LATEX, NATURAL RUBBER 04/04/2018 4 - Hives 2 - Rash NIFEDIPINE 10/11/2023 2 - Rash ADHESIVE TAPE (ROSINS) 02/16/2019 2 - Rash Comments: Tegaderm LATEX 02/20/2019 2 - Rash SULFA (SULFONAMIDE ANTIBIOTICS) 02/20/2019 2 - Rash VENOM-HONEY BEE 12/03/2020 7 - Swelling Date Reviewed: 09/30/2024 Reviewed by: Ester Hunter MA - Fully Assessed Reason for Visit: Ear Pain [817] Cough [28] Primary Visit Diagnosis:Sinobronchitis [J32.9, J40] Order(s):amoxicillin-clavulanate potassium (AUGMENTIN) 875-125 mg per tabletTake 1 tablet by mouth two times a day for 7 days.Disp: 14 tabletRfl: 0 Prescriptions as of 09/30/2024 - amoxicillin-clavulanate potassium (AUGMENTIN) 875-125 mg per tablet Take 1 tablet by mouth two times a day for 7 days. - labetalol (TRANDATE) 100 mg tablet Take 1 tablet by mouth two times a day. - PNV no.95/ferrous fum/folic ac ( ORAL) Take by mouth. - loratadine (CLARITIN) 10 mg tablet Take 1 tablet by mouth once daily as needed (for allergy symptoms.). Problem List As Of Date 09/30/2024 Noted Resolved Encounter for supervision of high [...] [R10.32] 07/01/2023 07/13/2023 with care elsewhere in [facility]*07/01/2023 12/02/2023 Hypertension in , preeclampsia, delive*12/02/2023 Prescriptions ordered this encounter Disp Refills Start End AMOXICILLIN 875 MG-POTASSIUM CLAVULA* 14 t* 0 09/30/2024 10/07/2024 Route: PO Sig: Take 1 tablet by mouth two times a day for 7 days. Encounter Status:Closed by JENIFFER STYLES on 09/30/24 ALLERGIES DATE TYPE / CODE NAME / CODE REACTION SEVERITY SOURCE 10/11/2023 DRUG INGREDI/700606893(SN OMED CT) NIFEDIPINE RASH [facility] 12/03/2020 DRUG INGREDI/261851846(SN OMED CT) VENOM-HONEY BEE SWELLING [facility] 02/27/2019 DRUG/068510246(SNOME D CT) ADHESIVE TAPE-SILICONES RASH High [facility] 02/20/2019 DRUG INGREDI/422534252(SN OMED CT) LATEX RASH [facility] 02/20/2019 Drug Class/104446147(SNOM ED CT) SULFA (SULFONAMIDE ANTIBIOTICS) RASH [facility] 02/16/2019 Chemical/919391878(S NOMED CT) ADHESIVE TAPE (ROSINS) RASH [facility] 04/04/2018 Drug Class/816233056(SNOM ED CT) LATEX, NATURAL RUBBER HIVES Med [facility] Drug Allergy/228047712(SN OMED CT) SULFA (sulfonamide)/00 761776(RXNORM) U [facility] Environmental Allergy/791463358(SN OMED CT) LATEX Moderate (Severity Modifier) (Qualifier Value) [facility] ENCOUNTERS ADMIT/DISCHARGE ACCOUNT NUMBER ADMITTING ENCOUNTER CLASS LOCATION SOURCE 05/20/2025/05/20/19 [id number] 05/10/2025/05/10/19 26 [id number] [facility] 05/01/2025/05/01/20 25 [id number] [facility] 05/01/2025/05/01/20 25 [id number] [facility] 04/29/2025/04/29/20 [id number] [facility] 04/29/2025 [id number] TABBY KRUEGER Ambulatory Building:[facility] 04/26/2025/04/26/20 [id number] [facility] 04/12/2025/04/12/20 [id number] [facility] 02/07/2025/02/08/20 [id number] [facility] 01/08/2025/01/09/20 [id number] [facility] 11/05/2024/11/06/19 [id number] [facility] 10/26/2024/10/27/19 [id number] [facility] 10/22/2024/10/23/19 [id number] [facility] 10/22/2024/10/23/19 [id number] [facility] 09/30/2024/10/01/19 [id number] [facility] PAYERS ENCOUNTER GUARANTOR PAYER SUBSCRIBER SOURCE 05/20/2025 Primary Insuranc e:MMO SUPERMED PPOPolicy Number: [id number] Date:7703-17-89Vtuf Name:Torey PEDRITO PRADHAN: [id number] [place] [id number] [place] [address] 05/10/2025 Primary Insuranc e:MMO SUPERMED PPOPolicy Number: [id number] Date:3351-86-83Dtpy Name:Torey PRADHAN: [id number] [place] [id number] [place] [address] 05/01/2025 Primary Insuranc e:MMO SUPERMED PPOPolicy Number: [id number] Date:8297-81-63Dzdb Name:Torey PEDRITO PRADHAN: [id number] [place] [address], [place] [address] [facility] 05/01/2025 Primary Insuranc e:MMO SUPERMED PPOPolicy Number: [id number] Date:0710-29-48Wfqw Name:Torey REYESDOB: [id number] [place] [address] [facility] 04/29/2025 Primary Insuranc e:MMO SUPERMED PPOPolicy Number: [id number] Date:6275-68-49Lymk Name:Torey Lopez AMYDOB: [id number] [place] [address] [facility] 04/29/2025 PEDRITO Lopez AMYDOB: CR [address] [place] [address], [place] [address]Dsf: (hp) Primary [facility] Number: [id number] Date:Plan Name:Baudilio Lopez NADINEB: [id number] [address] [place] [address], [place] [address] [facility] 04/26/2025 Primary Insuranc e:MMO SUPERMED PPOPolicy Number: [id number] Date:3932-43-67Nanq Name:Torey Lopez AMYDOB: [id number] [place] [address] [facility] 04/12/2025 Primary Insuranc e:MMO SUPERMED PPOPolicy Number: [id number] Date:2416-25-14Thkb Name:Torey Lopez AMYDOB: [id number] [place] [address] [facility] 02/07/2025 Primary Insuranc e:MMO SUPERMED PPOPolicy Number: [id number] Date:7474-23-93Bnpu Name:Torey Lopez AMYDOB: [id number] [place] [id number] [place] [address] 01/08/2025 Primary Insuranc e:MMO SUPERMED PPOPolicy Number: [id number] Date:2983-96-83Etoy Name:Torey Lopez NADINEB: [id number] [place] [phone] [place] [address] 11/05/2024 Primary Insuranc e:MMO SUPERMED PPOPolicy Number: [id number] Date:8859-69-25Esuy Name:Torey Lopez NADINEB: [id number] [place] [phone] [place] [address] 10/26/2024 Primary Insuranc e:MMO SUPERMED PPOPolicy Number: [id number] Date:8751-80-95Evlf Name:Torey Lopez NADINEB: [id number] [place] [phone] [place] [address] 10/22/2024 Primary Insuranc e:MMO SUPERMED PPOPolicy Number: [id number] Date:8780-35-40Cxxz Name:Torey Lopez NADINEB: [id number] [place] [phone] [place] [address] 10/22/2024 Primary Insuranc e:MMO SUPERMED PPOPolicy Number: [id number] Date:2994-13-52Niby Name:Torey Lopez NADINEB: [id number] [place] [phone] [place] [address] 09/30/2024 Primary Insuranc e:MMO SUPERMED PPOPolicy Number: [id number] Date:0428-41-62Rrls Name:Torey Lopez NADINEB: [id number] [place] [phone] [place] [address]
--- OUTSIDE RECORDS SUMMARY | 2025-05-24 19:48 | XMS RPT_ITS | CCD ---
Author Organization [facility] Care Team Providers Care Geophysical E Logger Name Role Phone OTTONIEL ENCARNACION Primary Care Unavailable TRACI INGRAM Attending Unavailable TRACI INGRAM Admitting Unavailable Ottoniel Encarnacion Primary Care Provider Ottoniel Encarnacion Primary Care Provider Ottoniel Scott Primary Care Provider SHASHANK INVENTORY TRANSCRIBER-COTTONIEL Consulting Unavailable POORMAN BLACK LEATHER BUFFER~[phone], LISSETTEMAN SORAIDA M Attend ing Unavailable POORMAN BLACK LEATHER BUFFER~[phone], POORMAN SORAIDA M Admitt ing Unavailable SHASHANK INVENTORY TRANSCRIBER-C~[id number], SHASHANK Aguilar Primary Car e Unavailable OTTONIEL ENCARNACION Consulting Unavailable POORMAN BLACK LEATHER BUFFER, SORAIDA M Consulting Unavailab le POORMAN BLACK LEATHER BUFFER, SORAIDA M Consulting Unavailab le SHASHANK INVENTORY TRANSCRIBER-C~[id number], SHASHANK Aguilar Primary Car e Unavailable ENCINAS DO~[id number], CE IVETT M Admitting Unavailable SHASHANK INVENTORY TRANSCRIBER-COTTONIEL Consulting Unavailable ENCINAS DO~[id number], CE CARRERAILY M Attending Unavailable OTTONIEL ENCARNACION Consulting Unavailable ENCINAS DO, IVETT M Consulting Unavailable ENCINAS DO, IVETT M Consulting Unavailable NONE, NONE Consulting Unavailable NONE, NONE Primary Care Unavailable POORMAN BLACK LEATHER BUFFER~[phone], POORMAN SORAIDA M Attend ing Unavailable POORMAN BLACK LEATHER BUFFER~[phone], POORMAN SORAIDA M Admitt ing Unavailable NONE, NONE Consulting Unavailable SHASHANK INVENTORY TRANSCRIBER-C~[id number], SHASHANK Aguilar Primary Car e Unavailable ENCINAS DO~[phone], CE ROOT M Attending Unavailable KONSTAN MD, ARAMIS M Consulting Unavailable ENCINAS DO~, ENCINAS IVETT M Admitting Unavailable SELVIN MARCELO, ARAMIS Fernandez Consulting Unavailable SHASHANK INVENTORY TRANSCRIBER-C, OTTONIEL Aguilar Consulting Unavailable OTTONIEL ENCARNACION K Consulting Unavailable ENCINAS DO, IVETT M Consulting Unavailable ENCINAS DO, IVETT M Consulting Unavailable SHASHANK INVENTORY TRANSCRIBER-C, OTTONIEL K Consulting Unavailable JUNE MARCELO, ~[phone] DEVAN Lopez Attending Unavailable JUNE MARCELO, ~[phone] DEVAN Lopez Admitting Unavailable SHASHANK INVENTORY TRANSCRIBER-C~[id number], SHASHANK GARNERA K Primary Car e Unavailable SHASHANK OTTONIEL K Consulting Unavailable JUNE MARCELO, DR DEVAN Lopez Consulting Unavaila cr WATKINS MD, DR DEVAN Lopez Consulting Unavaila cr ESCALANTE MD, PAULA Guzmán Consulting Unavailable AVA MARCELO, PAULA Guzmán Consulting Unavailable Richie [phone], Clint [phone] C onsulting Unavailable DARIO DO~[id number], DARIO LEONID J Admitting Unavailable DARIO DO~[id number], DARIO LEONID J Attending Unavailable SHASHANK INVENTORY TRANSCRIBER-C~[id number], SHASHANK GARNERA K Primary Car e Unavailable RICHIE MARCELO, CLINT Consulting Unavailable SHASHANK INVENTORY TRANSCRIBER-C, OTTONIEL K Consulting Unavailable OTTONIEL ENCARNACION K Consulting Unavailable BILL MARCELO, MILKA Tay Consulting Unavailable BILL MARCELO, MILKA Tay Consulting Unavailable THEODORE MARCELO, TEGAN Mares Consulting Unavailable THEODORE MRACELO, TEGAN Mares Consulting Unavailable DARIO DO, LEONID J Consulting Unavailable DARIO DO, LEONID J Consulting Unavailable NONE, NONE Consulting Unavailable ENCINAS DO~, ENCINAS IVETT M Admitting Unavailable SHASHANK INVENTORY TRANSCRIBER-C~[phone], SHASAHNK GARNERA K Primary Car e Unavailable ENCINAS DO~, CE ROOT M Attending Unavailable NONE, NONE Consulting Unavailable ENCINAS DO, IVETT M Consulting Unavailable ENCINAS DO, IVETT M Consulting Unavailable NONE, NONE Consulting Unavailable SHASHANK INVENTORY TRANSCRIBER-C~[id number], SHASHANK GARNERA K Primary Car e Unavailable ENCINAS DO~, ENCINAS IVETT M Admitting Unavailable ENCINAS DO~, ENCINAS IVETT M Attending Unavailable NONE, NONE Consulting Unavailable ENCIANS DO, IVETT M Consulting Unavailable ENCINAS DO, IVETT M Consulting Unavailable NONE, NONE Consulting Unavailable POORMAN BLACK LEATHER BUFFER~[phone], LISSETTEGRACIELA BURNHAM M Attend ing Unavailable ABDULKADIR BLACK LEATHER BUFFER~[phone], ABDULKADIR BURNHAM M Admitt ing Unavailable SHASHANK INVENTORY TRANSCRIBER-C~[id number], SHASHANK OTTONIEL K Primary Car e Unavailable NONE, NONE Consulting Unavailable ABDULKADIR BLACK LEATHER BUFFER, SORAIDA M Consulting Unavailab le ABDULKADIR BLACK LEATHER BUFFER, SORAIDA M Consulting Unavailab le Shashank [facility], Ottoniel K Primary Care Provider CONSULT, NEUROLOGY-STROKE ALERT Consulting Unavailable LEONID BISHOP Referring Unavailable JAX ROJAS Attending Unavailable SHASHANK, OTTONIEL K Primary Care Unavailable JEAN GOVEA Attending Unavailable AUDELIAСЕРГЕЙIA Referring Unavailable SHASHANK, OTTONIEL K Primary Care Unavailable SHASHANK, OTTONIEL K Primary Care Unavailable IVETT PALOMO Referring Unavailable SNEHA CARDENAS Attending Unavailable Shashank TELETYPE OPERATOR, Ottoniel K Primary Care Provider JHON CANTRELL [...] SHASHANK, OTTONIEL K Primary Care Unavailable AVILEZ GEOVANNA Referring Unavailable SHASHANK, OTTONIEL K Primary Care Unavailable Shashank, Ottoniel Primary Care Unavailable Seferino Hugo Attending Unavailable Tabby Krueger Attending Unavailable Shashank, Ottoniel Primary Care Unavailable Allergies Allergy Classification Reported Allergen(s) Allergy Type Date of Onset Reaction(s) Facility Adhesive Tape (3 sources) Adhesive Tape Substance Allergy 9 Rash [facility] Latex (6 sources) Latex Substance Allergy 8 Rash, Hives [facility] NIFEdipine (3 sources) NIFEdipine Drug Allergy 4 Rash [facility] Sulfonamides (antibiotic) (3 sources) Sulfonamides (Antibiotic) Drug Allergy 9 Rash [facility] (20 sources) Latex; Translations: [LATEX] Propensity to adverse reactions to drug (disorder) 9 Rash, Hives [facility] Repository (20 sources) Sulfonamides (Antibiotic); Translations: [SULFA (SULFONAMIDE ANTIBIOTICS)] Propensity to adverse reactions to drug (disorder) 9 [facility] Repository (20 sources) Adhesive Tape-Silicones; Translations: [ADHESIVE TAPE-SILICONES] Drug Allergy 9 [facility] (2 sources) Sulfonamides (Antibiotic) Propensity to adverse reactions to drug 7 Hives [facility] (2 sources) *Adhesive Tape Propensity to adverse reactions 9 [facility] (2 sources) natural latex rubber; Translations: [LATEX, NATURAL RUBBER] Drug allergy (disorder) 8 [facility] Repository (20 sources) Adhesive Tape; Translations: [ADHESIVE TAPE (ROSINS)] Allergy to substance 9 [facility] (20 sources) Latex Drug Allergy 8 Hives, [facility] (20 sources) NIFEdipine; Translations: [NIFEDIPINE] Drug Allergy 4 [facility] (20 sources) Venom-Honey Bee; Translations: [VENOM-HONEY BEE] Drug Allergy 1 Swelling [facility] (1 source) Sulfonamides (Antibiotic) Drug allergy (disorder) [facility] Repository (1 source) Adhesive Tape Drug allergy (disorder) 5 [facility] Repository Medications Current Medications Medication Drug Class(es) [...] a day. Take 2 tablets by mo [facility] two times a day. 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 Patient/authorized payable representative agreed to proceed CHIEF COMPLAINT: The [...] No history of hemorrhaging or blood transfusions zzpd-K-nsbhjovm; was anemic after the first and received [...] any history of hemorrhaging or blood transfusions xgjk-F-fzfkpgdi; was anemic after the first and received [...] Living2 SAB0 IAB0 Ectopic0 Multiple0 Live Births2 Information Systems Security Developer History LMP: 12/10/2024 (Exact Date), Having periods Age at Menarche: Age at First : Age at Menopause: Information Systems Security Developer History Comments: Sexual Activity: Yes; Male Contraception: No contraception data on record PAST MEDICAL HISTORY Diagnosis Date Anemia 07/2018 Arachnoid cyst History of intrauterine in previous 07/01/2023 Hx of preeclampsia, prior , currently ([facility]) 01/2021 Around 32weeks Left lower quadrant abdominal pain 07/01/2023 Reports random sharp pain to left side. Likely round ligament pain. To notify if persistent or worsening. Lyme disease Mesenteric lymphadenitis POTS (postural orthostatic tachycardia syndrome) TIA (transient ischemic attack) 04/2023 Vaginal bleeding in , first trimester ([facility]) 07/01/2023 Per OB records, humza gestational hemorrhage: [...] 3x/day until (more content not included)... Normal [facility] CNOVon 01-08-2025 CNOV Office Visit (OBGYWM) JONO,CLARISA John ([id number]) 1990 F Date Time Provider Department 01/08/25 1:50 PM GEOVANNA AVILEZ OBGYWM During your visit today, we recorded the following information about you: Blood pressure Weight Last Period 124/80 85.7 kg 12/10/24 Geovanna Avilez APRN.CNM 01/08/2025 3:57 PM Signed Stove Refinisher offered: Patient declinesCha Major is a 34 [...] in 3 to 5 business days via [employer], unless a different method of communication was discussed today with your provider. Referring Provider: GEOVANNA AVILEZ [[id number]] Allergies As of Date: 01/08/2025 Noted Allergy [...] uterus [N80.03] Irregular menstruation [N92.6] Order(s):SURGICAL PATHOLOGY [GYL0892] Order #: [id number]. #:[id number] UA DIP,URINE HCG (POC) [[id number]] Order #: [id number]. #:[id number] Prescriptions as of 01/08/2025 - Norethindrone, Contraceptive, 0.35 mg tablet Take 1 tablet by mouth once daily. - labetalol (TRANDATE) 100 mg tablet Take 1 tablet by mouth two times a day. (more content not included)... Normal [facility] Pathology biopsy report Xander (Tiss)on 01-08-2025 AP DISCLAIMER Normal [facility] Comment on above: Order Comment: Speci men Type: TISSUE SPECIMEN Ordering Facility: [facility] Address: [address] [place] [address] Result Comment: Adeline salas Developed Test (LDT) Disclaimer: Performance characteristics of immunohistochemical, immunofluorescent, and chromogenic in-situ hybridization tests have been determined by the performing laboratory within the [facility] Department of Pathology and Laboratory Medicine ([facility], [facility], [facility], [facility], [facility], [facility], or [facility]) in a manner consistent with CLIA requirements. One or more of these tests may not have been cleared or approved by the FDA. The [facility] Department of Pathology and Laboratory Medicine is regulated under CLIA as qualified to perform high-complexity testing. These tests are used for clinical purposes. These should not be regarded as investigational or for research. Positive and negative controls stain appropriately. Performed By: #### 6 6121-5 #### [facility] CLIA [id number] [address] [place] [address] [place] CASE REPORT Normal [facility] Comment on above: Order Comment: Speci men Type: TISSUE SPECIMEN Ordering Facility: [facility] Address: [address] [place] [address] Result Comment: Surg [facility] Pathology Report Case: [id number] Authorizing Provider: Geovanna Avilez APRN.CNM Collected: 01/08/2025 02:17 PM Ordering Location: OB/Gynecology Received: 01/08/2025 04:33 PM Pathologist: Kirsten Elias MD Specimen: Endometrium, Biopsy Performed By: #### 6 6121-5 #### [facility] CLIA [id number] [address] [place] [address] [place] CLINICAL HISTORY Adenomyosis of Uterus and Irregular Menses Normal [facility] Comment on above: Order Comment: Speci men Type: TISSUE SPECIMEN Ordering Facility: [facility] Address: [address] [place] [address] Performed By: #### 6 6121-5 #### [facility] CLIA [id number] [address] [place] [address] [place] FINAL DIAGNOSIS Normal [facility] Comment on above: Order Comment: Speci men Type: TISSUE SPECIMEN Ordering Facility: [facility] Address: [address] [place] [address] Result Comment: Endo metrium, biopsy: - Mid-to-late secretory pattern endometrium. at 1223 EDT Performed By: #### 6 6121-5 #### [facility] CLIA [id number] [address] [place] [address] [place] FINAL PERFORMING LAB Normal [facility] Comment on above: Order Comment: Speci men Type: TISSUE SPECIMEN Ordering Facility: [facility] Address: [address] [place] [address] Result Comment: Diag nostic interpretation performed at: [facility], [address] [place] [address] CLIA# [id number] Tree Feller Operator: Aroldo Vasquez MD Performed By: #### 6 6121-5 #### [facility] CLIA [id number] [address] [place] [address] [place] GROSS DESCRIPTION Normal [facility] Comment on above: Order Comment: Speci men Type: TISSUE SPECIMEN Ordering Facility: [facility] Address: [address] [place] [address] Result Comment: A. E ndometrium, Biopsy Received in formalin are multiple pisano-pink, soft feathery segments of tissue admixed with gelatinous material aggregating to 2.5 x 2.3 x 0.4 cm. Totally submitted in one cassette. [facility] January 08, 2025 8:20 PM Gross examination performed at [facility], [address] [place] [address] Performed By: #### 6 6121-5 #### [facility] CLIA [id number] [address] [place] [address] [place] UA DIP,URINE HCG (POC)on Beta HCG ( test) Ql (U) Negative Negative [facility] Beck Tender (POCT) Internal QC OK [facility] Location:[facility], [address], [place], [address] [facility] POINT OF CARE [facility] Franko 12-25-2024 WILDERN Telephone (OBGYWM) CLARISA DE LA CRUZ ([id number]) 1990 F Date Time Provider Department 12/25/24 [...] she get EMB? 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 MATERNAL MEDICINE [facility] US Pelvison 10-26-2024 Radiology Study observation (narrative) [facility] CBC W Auto Differential pane l (Bld)on 10-22-2024 Basophils (Bld) [#/Vol] 0.05 10*3/uL [facility] Basophils/100 WBC (Bld) 0.6 % [facility] Differential cell count method Nom (Bld) Auto [facility] Eosinophils (Bld) [#/Vol] 0.5 10*3/uL High [facility] Eosinophils/100 WBC (Bld) 6.5 % [facility] Erythrocyte distribution width (RBC) [Ratio] 12.6 % 11.5 - 15.0 % [facility] Hematocrit (Bld) [Volume fraction] 39.3 % 36.0 - 46.0 % [facility] Hemoglobin (Bld) [Mass/Vol] 13.1 g/dL 11.5 - 15.5 g/dL [facility] Immature granulocytes (Bld) [#/Vol] [facility] Immature granulocytes/100 WBC (Bld) 0.3 % [facility] Interpretation and review of laboratory results Abnormal [facility] Lymphocytes (Bld) [#/Vol] 1.81 10*3/uL [facility] Lymphocytes/100 WBC (Bld) 23.5 % [facility] MCH (RBC) [Entitic mass] 29.1 pg 26.0 - 34.0 pg [facility] MCHC (RBC) [Mass/Vol] 33.3 g/dL 30.5 - 36.0 g/dL [facility] MCV (RBC) [Entitic vol] 87.3 fL 80.0 - 100.0 fL [facility] Monocytes (Bld) [#/Vol] 0.62 10*3/uL [facility] Monocytes/100 WBC (Bld) 8 % [facility] Neutrophils (Bld) [#/Vol] 4.71 10*3/uL [facility] Neutrophils/100 WBC (Bld) 61.1 % [facility] Nucleated RBC (Bld) [#/Vol] NINF [facility] Nucleated RBC/100 WBC (Bld) [Ratio] 0 % /100 WBC [facility] Platelet mean volume (Bld) [Entitic vol] 10.2 fL 9.0 - 12.7 fL [facility] Platelets (Bld) [#/Vol] 304 10*3/uL [facility] RBC (Bld) [#/Vol] 4.5 10*6/uL 3.90 - 5.2 0 m/uL [facility] WBC (Bld) [#/Vol] 7.71 10*3/uL [facility] Basophils (Bld) [#/Vol] 0.05 10*3/uL Normal <0.11 [facility] Comment on above: Order Comment: Speci men Type: BLOOD SPECIMENOrdering Facility: [facility] Address: [address] [place] [address] Performed By: #### 5 7021-8 ####[facility] [id number] [address] [place] Basophils/100 WBC (Bld) 0.6 % Normal [facility] Comment on above: Order Comment: Speci men Type: BLOOD SPECIMENOrdering Facility: [facility] Address: [address] [place] [address] Performed By: #### 5 7021-8 ####[facility] [id number] [place] [address] [place] Differential cell count method Nom (Bld) Auto Normal [facility] Comment on above: Order Comment: Speci men Type: BLOOD SPECIMENOrdering Facility: [facility] Address: [address] [place] [address] Performed By: #### 5 7021-8 ####[facility] [id number] [place] [address] [place] Eosinophils (Bld) [#/Vol] 0.50 10*3/uL High <0.46 [facility] Comment on above: Order Comment: Speci men Type: BLOOD SPECIMENOrdering Facility: [facility] Address: [address] [place] [address] Performed By: #### 5 7021-8 ####[facility] TANMAY [id number] [place] [address] [place] Eosinophils/100 WBC (Bld) 6.5 % Normal [facility] Comment on above: Order Comment: Speci men Type: BLOOD SPECIMENOrdering Facility: [facility] Address: [address] [place] [address] Performed By: #### 5 7021-8 ####[facility] FRANSISCONORTH LAS VEGASHERMINIA [id number] [place] [address] [place] Erythrocyte distribution width (RBC) [Ratio] 12.6 % Normal 11.5-15.0 [facility] Comment on above: Order Comment: Speci men Type: BLOOD SPECIMENOrdering Facility: [facility] Address: [address] [place] [address] Performed By: #### 5 7021-8 ####[facility] [id number] [place] [address] [place] Hematocrit (Bld) [Volume fraction] 39.3 % Normal 36.0-46.0 [facility] Comment on above: Order Comment: Speci men Type: BLOOD SPECIMENOrdering Facility: [facility] Address: [address] [place] [address] Performed By: #### 5 7021-8 ####[facility] H[facility]PITALMIKALIA [id number] [place] [address] [place] Hemoglobin (Bld) [Mass/Vol] 13.1 g/dL Normal 11.5-15.5 [facility] Comment on above: Order Comment: Speci men Type: BLOOD SPECIMENOrdering Facility: [facility] Address: [address] [place] [address] Performed By: #### 5 7021-8 ####[facility] MILLWNCLIA [id number] [place] [address] [place] Immature granulocytes (Bld) [#/Vol] 10*3/uL Normal <0.10 [facility] Comment on above: Order Comment: Speci men Type: BLOOD SPECIMENOrdering Facility: [facility] Address: [address] [place] [address] Performed By: #### 5 7021-8 ####[facility] [id number] [place] [address] [place] Immature granulocytes/100 WBC (Bld) 0.3 % Normal [facility] Comment on above: Order Comment: Speci men Type: BLOOD SPECIMENOrdering Facility: [facility] Address: [address] [place] [address] Performed By: #### 5 7021-8 ####[facility] [id number] [place] [address] [place] Lymphocytes (Bld) [#/Vol] 1.81 10*3/uL Normal 1.00-4.00 [facility] Comment on above: Order Comment: Speci men Type: BLOOD SPECIMENOrdering Facility: [facility] Address: [address] [place] [address] Performed By: #### 5 7021-8 ####[facility] [id number] [place] [address] [place] Lymphocytes/100 WBC (Bld) 23.5 % Normal [facility] Comment on above: Order Comment: Speci men Type: BLOOD SPECIMENOrdering Facility: [facility] Address: [address] [place] [address] Performed By: #### 5 7021-8 ####[facility] [id number] [place] [address] [place] MCH (RBC) [Entitic mass] 29.1 pg Normal 26.0-34.0 [facility] Comment on above: Order Comment: Speci men Type: BLOOD SPECIMENOrdering Facility: [facility] Address: [address] [place] [address] Performed By: #### 5 7021-8 ####[facility]ITALN[facility] [id number] [place] [address] [place] MCHC (RBC) [Mass/Vol] 33.3 g/dL Normal 30.5-36.0 [facility] Comment on above: Order Comment: Speci men Type: BLOOD SPECIMENOrdering Facility: [facility] Address: [address] [place], [place] [address] Performed By: #### 5 7021-8 ####[facility] [id number] [place] [address] [place] MCV (RBC) [Entitic vol] 87.3 fL Normal 80.0-100.0 [facility] Comment on above: Order Comment: Speci men Type: BLOOD SPECIMENOrdering Facility: [facility] Address: [address] [place] [address] Performed By: #### 5 7021-8 ####[facility] [id number] [place] [address] [place] Monocytes (Bld) [#/Vol] 0.62 10*3/uL Normal <0.87 [facility] Comment on above: Order Comment: Speci men Type: BLOOD SPECIMENOrdering Facility: [facility] Address: [address] [place] [address] Performed By: #### 5 7021-8 ####[facility] [id number] [place] [address] [place] Monocytes/100 WBC (Bld) 8.0 % Normal [facility] Comment on above: Order Comment: Speci men Type: BLOOD SPECIMENOrdering Facility: [facility] Address: [address] [place] [address] Performed By: #### 5 7021-8 ####[facility] [id number] [place] [address] [place] Neutrophils (Bld) [#/Vol] 4.71 10*3/uL Normal 1.45-7.50 [facility] Comment on above: Order Comment: Speci men Type: BLOOD SPECIMENOrdering Facility: [facility] Address: [address] [place] [address] Performed By: #### 5 7021-8 ####[facility] [id number] [place] [address] [place] Neutrophils/100 WBC (Bld) 61.1 % Normal [facility] Comment on above: Order Comment: Speci men Type: BLOOD SPECIMENOrdering Facility: [facility] Address: [address] [place] [address] Performed By: #### 5 7021-8 ####[facility] [id number] [place] [address] [place] Nucleated RBC (Bld) [#/Vol] 10*3/uL Normal <0.01 [facility] Comment on above: Order Comment: Speci men Type: BLOOD SPECIMENOrdering Facility: [facility] Address: [address] [place] [address] Performed By: #### 5 7021-8 ####[facility]ITALNCLIA [id number] [place] [address] [place] Nucleated RBC/100 WBC (Bld) [Ratio] 0.0 /100 WBC Normal [facility] Comment on above: Order Comment: Speci men Type: BLOOD SPECIMENOrdering Facility: [facility] Address: [address] [place] [address] Performed By: #### 5 7021-8 ####[facility]ITALNCLIA [id number] [place] [address] [place] Platelet mean volume (Bld) [Entitic vol] 10.2 fL Normal 9.0-12.7 [facility] Comment on above: Order Comment: Speci men Type: BLOOD SPECIMENOrdering Facility: [facility] Address: [address] [place] [address] Performed By: #### 5 7021-8 ####[facility] FRANSISCOANGELESA [id number] [place] [address] [place] Platelets (Bld) [#/Vol] 304 10*3/uL Normal 150-400 [facility] Comment on above: Order Comment: Speci men Type: BLOOD SPECIMENOrdering Facility: [facility] Address: [address] [place] [address] Performed By: #### 5 7021-8 ####[facility] H[facility]PITALMIKADREAA [id number] [place] [address] [place] RBC (Bld) [#/Vol] 4.50 10*6/uL Normal 3.90-5.20 [facility] Comment on above: Order Comment: Speci men Type: BLOOD SPECIMENOrdering Facility: [facility] Address: [address] [place] [address] Performed By: #### 5 7021-8 ####[facility]PITALMIKADREAA [id number] [place] [address] [place] WBC (Bld) [#/Vol] 7.71 10*3/uL Normal 3.70-11.00 [facility] Comment on above: Order Comment: Speci men Type: BLOOD SPECIMENOrdering Facility: [facility] Address: [address] [place] [address] Performed By: #### 5 7021-8 ####[facility]ITALNCLIA [id number] [place] [id number] [place] [facility] CNOVon 10-22-2024 CNOV Office Visit (OBGYWM) CLARISA DE LA CRUZ ([id number]) 1990 F Date Time Provider Department 10/22/24 1:45 PM GEOVANNA AVILEZ OBGYWM During your visit today, we recorded the following information about you: Blood pressure Weight Last Period 118/72 83.9 kg 10/03/24 Geovanna Avilez APRN.CNM 10/22/2024 2:23 PM Signed Obstetrics and Gynecology [place] 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 Likely round ligament pain. To notify if persistent or worsening. Lyme disease Mesenteric lymphadenitis POTS (postural orthostatic tachycardia syndrome) TIA (transient ischemic attack) 04/2023 Vaginal bleeding in , first trimester ([facility]) 07/01/2023 Per OB records, humza gestational hemorrhage: [...] discussed with the Patient or Patient's Authorized Ethylene Plant Operator. As applicable, any other physician, advance practice provider, medical student, or other health professional student that will be observing or involved in the sensitive examination for educational or training purposes was discussed with the Patient or Authorized Ethylene Plant Operator. The Patient or Authorized Ethylene Plant Operator has agreed to proceed with the sensitive examination. (Sensitive examination includes inspection and/or palpation of the breasts, pelvis, prostate and anorectal regions). PHYSICAL EXAM: BP 118/72 Wt 185 lb (83.9kg) LMP 10/03/2024 GENERAL: Pleasant; in no (more content not included)... Normal [facility] T4 Free SerPl-mCncon 025 Free T4 [Mass/Vol] 0.9 ng/dL Normal 0.9-1.7 [facility] Comment on above: Order Comment: Speci men Type: BLOOD SPECIMENOrdering Facility: [facility] Address: [address] [place] [address] Performed By: #### 3 016-3, 3024-7 ####[facility] LABCLIA [id number] [place] [address] [place] TSH SerPl-aCncon 10-22-2024 TSH Qn 0.837 m[IU]/L Normal 0.270-4.200 [facility] Comment on above: Order Comment: Speci men Type: BLOOD SPECIMENOrdering Facility: [facility] Address: [address] [place] [address] Result Comment: If t he patient is , TSH reference range varies by gestational period: First Trimester (weeks 9-12): 0.180-2.990 mIU/L Second Trimester: 0.110-3.980 mIU/L Third Trimester: 0.480-4.710 mIU/L Noe Lynch et al. A Practical Approach for the Verifications and Determination of Site- and Trimester-Specific Reference Intervals for Thyroid Function tests in . Thyroid, 2019:29:3:412-420. Alberto Guzmán, et al. 2017 Guidelines of the [place] Thyroid Association for the Diagnosis and Management of Thyroid Disease during and the . Thyroid, 2017:27:3:315-389. Performed By: #### 3 016-3, 3024-7 ####[facility] DANA [id number] ADENIKE CASTILLO [address] [place] CNOVon 09-30-2024 CNOV Office Visit (UCWSTR) CLARISA DE LA CRUZ ([id number]) 1990 F Date Time Provider Department 09/30/24 3:00 PM [facility] During your visit today, we recorded the following information about you: Temperature Pulse Blood pressure Weight 98.3 degrees 96/minute 140/80 83.9 kg Height 1.715 m Jeniffer Styles APRN.TELETYPE OPERATOR 09/30/2024 3:21 PM Signed [facility] [...] 07/01/2023 Hx of preeclampsia, prior , currently ([facility]) 01/2021 Around 32weeks Left lower quadrant abdominal pain 07/01/2023 Reports random sharp pain to left side. Likely round ligament pain. To notify if persistent or worsening. Lyme disease Mesenteric lymphadenitis POTS (postural orthostatic tachycardia syndrome) TIA (transient ischemic attack) 04/2023 Vaginal bleeding in , first trimester ([facility]) 07/01/2023 Per OB records, humza gestational hemorrhage: [...] MG-POTASSIUM CLAVULANATE 125 MG TABLET Jeniffer Styles APRN.TELETYPE OPERATOR History and Record Review External record(s) reviewed: prior outpatient record. Disposition The patient was discharged. Procedures Referring Provider: SELF [200] Allergies As of Date: 09/30/2024 Note (more content not included)... Normal [facility] Basic Metabolic Profile (BMP )on 06-28-2024 BUN/CRE 22.9 RATIO High 10-20 [facility] Comment on above: Performed By: #### L 501.5200, L100.0100, L500.2500 #### [facility] [address] [place], [address] CA,Total 9.6 mg/dL Normal 8.5-10.1 [facility] Comment on above: Performed By: #### L 501.5200, L100.0100, L500.2500 #### [facility] [address] [place], [address] Chloride [Moles/Vol] 108 mmol/L High 98-107 [facility] Comment on above: Performed By: #### L 501.5200, L100.0100, L500.2500 #### [facility] [address] [place], [address] CO2 [Moles/Vol] 28.0 mmol/L Normal 21.0-32.0 [facility] Comment on above: Performed By: #### L 501.5200, L100.0100, L500.2500 #### [facility] [address] [place], [address] Creatinine [Mass/Vol] 0.74 mg/dL Normal 0.55-1.02 [facility] Comment on above: Result Comment: The validity of the calculated GFR GFRAA in patients over 70 years has not been determined. Clinical correlation is essential. Performed By: #### L 501.5200, L100.0100, L500.2500 #### [facility] [address] [place], [address] ECRCL 120.62 ml/min Normal [facility] Comment on above: Performed By: #### L 501.5200, L100.0100, L500.2500 #### [facility] [address] [place], [address] EST GFR - AA 116 mL/min Normal >60 [facility] Comment on above: Result Comment: Afri can Turkish GFR Calc Performed By: #### L 501.5200, L100.0100, L500.2500 #### [facility] [address] [place], [address] GAP 5 Normal 5-15 [facility] Comment on above: Performed By: #### L 501.5200, L100.0100, L500.2500 #### [facility] [address] [place], [address] GFR/1.73 sq M.predicted among non-blacks MDRD (S/P/Bld) [Vol rate/Area] 96 mL/min/{1.73_m2} Normal >60 [facility] Comment on above: Result Comment: Non- GFR Calc Performed By: #### L 501.5200, L100.0100, L500.2500 #### [facility] [address] [place], [address] Glucose [Mass/Vol] 102 mg/dL Normal 74-106 [facility] Comment on above: Result Comment: Fast ing Glucose result from 100 to 125 mg/dL suggests IMPAIRED HOMEOSTASIS per A.D.A. criteria. Performed By: #### L 501.5200, L100.0100, L500.2500 #### [facility] [address] [place], [address] Potassium [Moles/Vol] 4.1 mmol/L Normal 3.5-5.1 [facility] Comment on above: Performed By: #### L 501.5200, L100.0100, L500.2500 #### [facility] [address] [place], [address] Sodium [Moles/Vol] 140 mmol/L Normal 136-145 [facility] Comment on above: Performed By: #### L 501.5200, L100.0100, L500.2500 #### [facility] [address] [place], [address] Urea nitrogen [Mass/Vol] 17 mg/dL Normal 7-18 [facility] Comment on above: Performed By: #### L 501.5200, L100.0100, L500.2500 #### [facility] [address] [place], [address] CBC W/Diff, Automatedon 02-2 0-2024 Absolute Lymph 1.29 X10 3/uL Normal 0.83-4.51 [facility] Comment on above: Performed By: #### L 501.5200, L100.0100, L500.2500 #### [facility] [address] [place], [address] Absolute Neut 3.9 X10 3/uL Normal 2.0-7.7 [facility] Comment on above: Performed By: #### L 501.5200, L100.0100, L500.2500 #### [facility] [address] [place], [address] Basophils/100 WBC (Bld) 0.8 % Normal 0-1 [facility] Comment on above: Performed By: #### L 501.5200, L100.0100, L500.2500 #### [facility] [address] [place], [address] Eosinophils/100 WBC (Bld) 7.7 % High 0-5 [facility] Comment on above: Performed By: #### L 501.5200, L100.0100, L500.2500 #### [facility] [address] [place], [address] Erythrocyte distribution width (RBC) [Ratio] 12.3 % Normal 11.6-14.6 [facility] Comment on above: Performed By: #### L 501.5200, L100.0100, L500.2500 #### [facility] [address] [place], [address] Hematocrit (Bld) [Volume fraction] 39.2 % Normal 37-47 [facility] Comment on above: Performed By: #### L 501.5200, L100.0100, L500.2500 #### [facility] [address] [place], [address] Hemoglobin (Bld) [Mass/Vol] 12.9 g/dL Normal 12.0-15.0 [facility] Comment on above: Performed By: #### L 501.5200, L100.0100, L500.2500 #### [facility] [address] [place], [address] IG% 2.000 High 0.0-0.9 [facility] Comment on above: Result Comment: IG% - Immature Granulocytes (promyelocytes, myelocytes and metamyelocytes) > 1% indicates that a LEFT SHIFT is Present. Performed By: #### L 501.5200, L100.0100, L500.2500 #### [facility] [address] [place], [address] Lymphocytes/100 WBC (Bld) 19.8 % Normal 19-41 [facility] Comment on above: Performed By: #### L 501.5200, L100.0100, L500.2500 #### [facility] [address] [place], [address] MCH (RBC) [Entitic mass] 29.4 pg Normal 27.0-32.0 [facility] Comment on above: Performed By: #### L 501.5200, L100.0100, L500.2500 #### [facility] [address] [place], [address] MCHC (RBC) [Mass/Vol] 32.9 g/dL Normal 32-36 [facility] Comment on above: Performed By: #### L 501.5200, L100.0100, L500.2500 #### [facility] [address] [place], [address] MCV (RBC) [Entitic vol] 89.3 fL Normal 81-99 [facility] Comment on above: Performed By: #### L 501.5200, L100.0100, L500.2500 #### [facility] [address] [place], [address] Monocytes/100 WBC (Bld) 10.6 % High 0-10 [facility] Comment on above: Performed By: #### L 501.5200, L100.0100, L500.2500 #### [facility] [address] [place], [address] Neutrophils/100 WBC (Bld) 59.1 % Normal 47-70 [facility] Comment on above: Performed By: #### L 501.5200, L100.0100, L500.2500 #### [facility] [address] [place], [address] Nucleated RBC (Bld) [#/Vol] 0 10*3/uL Normal 0-5 [facility] Comment on above: Performed By: #### L 501.5200, L100.0100, L500.2500 #### [facility] [address] [place], [address] Platelet mean volume (Bld) [Entitic vol] 10.2 fL Normal 6.2-12.0 [facility] Comment on above: Performed By: #### L 501.5200, L100.0100, L500.2500 #### [facility] [address] [place], [address] Platelets (Bld) [#/Vol] 317 10*3/uL Normal 150-450 [facility] Comment on above: Performed By: #### L 501.5200, L100.0100, L500.2500 #### [facility] [address] [place], [address] RBC (Bld) [#/Vol] 4.39 10*6/uL Normal 4.2-5.4 [facility] Comment on above: Performed By: #### L 501.5200, L100.0100, L500.2500 #### [facility] [address] [place], [address] RDW SD 40.2 fl Normal 35.1-43.9 [facility] Comment on above: Performed By: #### L 501.5200, L100.0100, L500.2500 #### [facility] [address] [place], [address] WBC (Bld) [#/Vol] 6.5 10*3/uL Normal 4.4-11.0 [facility] Comment on above: Performed By: #### L 501.5200, L100.0100, L500.2500 #### [facility] [address] [place], [address] Emergency Department Summary on 06-28-2024 Emergency Department Summary [facility] Medical Records Department [address] [place] [address] Emergency Department Summary 06/28/24 MR#: [id number] Acct: [id number] Name: CLARISA DE LA CRUZ Rep #: [id number] : 1990 34 From: Seferino Hugo DO [...] to come to the hospital for evaluation [facility] Medical History (Updated 06/28/24 @ 06:12 by [...] ???Medication ???Instructions ???Recorded ???Last Taken ???Type pediatric qzrinlcj-evpu-ody 1 ea PO DAILY 04/26/19 0 11/30/23 [...] adopted: No household members: spouse 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 Normal [facility] Magnesiumon 06-28-2024 Magnesium [Mass/Vol] 2.2 mg/dL Normal 1.6-2.6 [facility] Comment on above: Performed By: #### L 501.5200, L100.0100, L500.2500 #### [facility] [address] [facility] [place], [address] CTA Head AND Neck W/ Contras ton 06-27-2024 CTA Head AND Neck W/ Contrast [facility] Imaging Services [address] [place], [place] [address] CTA Head AND Neck W/ Contrast MR#: [id number] Acct: [id number] Name: CLARISA DE LA CRUZ JON Rep #: [id number] : 1990 F 34 From: Soraida Barrera MD PCP: HERON Caldwell Status: REG ER Study: CTA Head AND Neck W/ Contrast Date of Exam: Exam# [id number] Ordering Dr: Seferino Hugo DO PROCEDURE: CTA [...] NEGATIVE FOR LARGE VESSEL OCCLUSION. Reading Location: [id number] CC: HERON Encarnacion; Seferino Hugo DO Packager Or Packer And Weigher: Signed Normal [facility] UA DIP, URINE (POC)on 2023 BILIRUBIN UA (POCT) Negative Negative [facility] CLARITY UA (POCT) Clear [facility] COLOR UA (POCT) Yellow [facility] GLUCOSE UA (POCT) Negative Negative mg/dL [facility] Hemoglobin Ql (U) Small Abnormal Negative [facility] Interpretation and review of laboratory results Abnormal [facility] KETONE UA (POCT) Negative Negative mg/dL [facility] LEUKOCYTES UA (POCT) Negative Negative [facility] NITRITE UA (POCT) Negative Negative [facility] PH UA (POCT) 5.5 4.5 - 8.0 [facility] Protein Ql (U) Negative Negative mg/dL [facility] SPECIFIC GRAVITY UA (POCT) >=1.030 1.005 - 1.030 [facility] UROBILINOGEN UA (POCT) 0.2 Normal E.U./d L [facility] Location:[facility], [address], [place], [address] [facility] POINT OF CARE [facility] Biophysical profile.mushtaq dy movement USon 11-28-2023 [facility] Radiology Study observation (narrative) [facility] URINE OB DIP B/Oon 4 Glucose Ql (U) Negative Neg mg/dL [facility] Protein.monoclonal (U) [Mass/Vol] Negative Neg mg/dL [facility] Biophysical profile.mushtaq dy movement USon 11-21-2023 [facility] Radiology Study observation (narrative) [facility] URINE OB DIP B/Oon 4 Glucose Ql (U) Negative Neg mg/dL [facility] Interpretation and review of laboratory results Normal [facility] Protein.monoclonal (U) [Mass/Vol] Negative Neg mg/dL [facility] Biophysical profile.mushtaq dy movement USon 11-15-2023 [facility] Radiology Study observation (narrative) [facility] Biophysical profile.mushtaq dy movement USon 11-07-2023 [facility] Radiology Study observation (narrative) [facility] URINE OB DIP B/Oon 4 Glucose Ql (U) Negative Neg mg/dL [facility] Interpretation and review of laboratory results Normal [facility] Protein.monoclonal (U) [Mass/Vol] Negative Neg mg/dL [facility] Biophysical profile.mushtaq dy movement USon 11-01-2023 [facility] Radiology Study observation (narrative) [facility] URINE OB DIP B/Oon 4 Glucose Ql (U) Negative Neg mg/dL [facility] Protein.monoclonal (U) [Mass/Vol] Negative Neg mg/dL [facility] Biophysical profile.mushtaq dy movement USon 10-25-2023 [facility] Radiology Study observation (narrative) [facility] URINE OB DIP B/Oon 4 Glucose Ql (U) Negative Neg mg/dL [facility] Interpretation and review of laboratory results Normal [facility] Protein.monoclonal (U) [Mass/Vol] Negative Neg mg/dL [facility] Biophysical profile.mushtaq dy movement USon 10-18-2023 [facility] Radiology Study observation (narrative) [facility] Examination level ultrasound on 10-11-2023 [facility] Radiology Study observation (narrative) [facility] No Panel InformationOrdered By: Tabby Krueger on 09-14-2023 Vaginal Amniotic Fluid Detection Negative Negative [facility] Comment on above: Amniotic fluid not p resent indicates No Rupture of FetalMembranes at time of specimen collection. UA DIP, URINE (POC)on 2023 BILIRUBIN UA (POCT) Negative Negative [facility] CLARITY UA (POCT) Clear [facility] COLOR UA (POCT) Yellow [facility] GLUCOSE UA (POCT) Negative Negative mg/dL [facility] Hemoglobin Ql (U) Negative Negative [facility] Interpretation and review of laboratory results Abnormal [facility] KETONE UA (POCT) Negative Negative mg/dL [facility] LEUKOCYTES UA (POCT) Trace Abnormal Negative [facility] NITRITE UA (POCT) Negative Negative [facility] PH UA (POCT) 6.5 4.5 - 8.0 [facility] Protein Ql (U) Negative Negative mg/dL [facility] SPECIFIC GRAVITY UA (POCT) 1.020 1.005 - 1.030 [facility] UROBILINOGEN UA (POCT) 0.2 Normal E.U./d L [facility] Location:[facility], [address] [facility], [place], [place], [address] [place] [address] POINT OF CARE [facility] URINE OB DIP B/OOrdered By: Haley Barrera on 09-07-2023 Glucose Ql (U) Negative Neg mg/dL [facility] Protein.monoclonal (U) [Mass/Vol] Negative Neg mg/dL [facility] Examination level ultrasound on 08-16-2023 [facility] URINE OB DIP B/Oon Glucose Ql (U) Negative Neg mg/dL [facility] Protein.monoclonal (U) [Mass/Vol] Negative Neg mg/dL [facility] CNOVon 08-02-2023 CNOV Office Visit (CVAKPO) CLARISA DE LA CRUZ ([id number]) 1990 F Date Time Provider Department 08/02/23 11:00 AM SNEHA CARDENAS During your visit today, we recorded the following information about you: Pulse Blood pressure Weight Height 81/minute 109/76 84.8 kg 1.715 m Sneha Cardenas APRN.CNP 08/15/2023 11:30 PM Signed [facility] Initial Visit [facility] [address] PCP: Ottoniel Encarnacion CNP [address] [place] [address] CEREBROVASCULAR HISTORY Clarisa De La Cruz is [...] On 04/23/2024 she sought [place] [facility] [place] blood pressure was noted to be elevated 153/99. She received headache cocktail with headache resolution afterwards. She has a history of hypertension following prior with preeclampsia for which she takes labetalol 50 mg daily at the time. She underwent CT/CTA imaging without any acute findings. She was transferred to [facility] for further evaluation. MRI brain imaging [...] of Onset (more content not included)... Normal [facility] URINE OB DIP B/Oon 4 Glucose Ql (U) Negative Neg mg/dL [facility] Protein.monoclonal (U) [Mass/Vol] Negative Neg mg/dL [facility] URINE OB DIP B/Oon 4 Glucose Ql (U) Negative Neg mg/dL [facility] Protein.monoclonal (U) [Mass/Vol] Negative Neg mg/dL [facility] ULTRASOUND 1ST TRIMEST Franki 06-11-2023 ULTRASOUND 1ST [...] interval growth without obvious significant complication. Normal [facility] RPRR SEND OUTon 05-24-2023 Reagin Ab RPR Ql (S) Non-Reactive Normal Non Reactive [facility] Comment on above: Performed By: #### T ESTFT #### Performed for [facility] [address] [place], [place] [address] CBC panel Auto (Bld)on 05-23 Erythrocyte distribution width (RBC) [Entitic vol] 37.2 fL Normal 36.4-46.3 [facility] Comment on above: Performed By: #### V G #### Performed for [facility] [address] [place], [place] [address] Hematocrit (Bld) [Volume fraction] 37.2 % Normal 37.0-47.0 [facility] Comment on above: Performed By: #### V G #### Performed for [facility] [address] [place], [place] [address] Hemoglobin (Bld) [Mass/Vol] 13.4 g/dL Normal 12.0-16.0 [facility] Comment on above: Performed By: #### V G #### Performed for [facility] [address] [place], [place] [address] MCH (RBC) [Entitic mass] 30.8 pg Normal 27.0-31.0 [facility] Comment on above: Performed By: #### V G #### Performed for [place] [address] [place], [place] [address] MCHC (RBC) [Mass/Vol] 36.0 g/dL Normal 32.0-36.0 [facility] Comment on above: Performed By: #### V G #### Performed for [address] [address] MCV (RBC) [Entitic vol] 85.5 fL Normal 80.0-100.0 [facility] Comment on above: Performed By: #### V G #### Performed for [address] [address] Platelet mean volume (Bld) [Entitic vol] 10.3 fL Normal 9.0-13.0 [facility] Comment on above: Performed By: #### V G #### Performed for [address] [place], [place] [address] Platelets (Bld) [#/Vol] 293 10*3/uL Normal 130-400 [facility] Comment on above: Performed By: #### V G #### Performed for [address] [address] RBC (Bld) [#/Vol] 4.35 10*6/uL Normal 4.00-6.30 [facility] Comment on above: Performed By: #### V G #### Performed for [address] [place], [place] [address] WBC (Bld) [#/Vol] 9.05 10*3/uL Normal 4.80-10.80 [facility] Comment on above: Performed By: #### V G #### Performed for [facility] [address] [place], [place] [address] COMPREHENSIVE METABOLIC PANE Alexandru 05-23-2023 Creatinine [Mass/Vol] 0.62 mg/dL Normal 0.51-0.95 [facility] Comment on above: Performed By: #### 3 084-1, 55018-8 #### [facility] [address] [place], [place] [address] [employer] [id number] Performed By: #### T ESTFT #### Performed for [place] [address] [place], [place] [address] GFR/1.73 sq M.predicted MDRD (S/P/Bld) [Vol rate/Area] mL/min/{1.73_m2} Normal >=59 [facility] Comment on above: Performed By: #### 3 084-1, 14735-7 #### [facility] [address] [place] [address] [employer] [id number] Performed By: #### T ESTFT #### Performed for [place] [address] [place], [place] [address] HGFR GLOMERULAR FILTRATION RATE INTERPRETATION~The eGFR is [...] months, with or without kidney damage.~ Normal [facility] Comment on above: Performed By: #### 3 084-1, 23808-5 #### [facility] [address] [place] [address] [employer] [id number] Performed By: #### T ESTFT #### Performed for [facility] [address] [place] [address] Comprehensive metabolic 2000 panelon 05-23-2023 Albumin [Mass/Vol] 4.0 g/dL Normal 3.4-5.0 [facility] Comment on above: Performed By: #### 3 084-1, 10651-4 #### [facility] [address] [place] [address] [employer] [id number] ALP [Catalytic activity/Vol] 41 U/L Low 50-136 [facility] Comment on above: Performed By: #### 3 084-1, 05981-5 #### [facility] [address] [place] [address] [employer] [place] [id number] ALT [Catalytic activity/Vol] 20 U/L Normal 14-59 [facility] Comment on above: Performed By: #### 3 084-1, 46066-5 #### [facility] [address] [place] [address] [employer] [place] [id number] Anion gap [Moles/Vol] 6.0 mmol/L Normal <=15.0 [facility] Comment on above: Performed By: #### 3 084-1, 38788-0 #### [facility] [address] [place] [address] [employer] [place] [id number] AST [Catalytic activity/Vol] 11 U/L Low 15-37 [facility] Comment on above: Performed By: #### 3 084-1, 91945-6 #### [facility] [address] [place] [address] [employer] [place] [id number] Bilirubin [Mass/Vol] 0.4 mg/dL Normal 0.2-1.0 [facility] Comment on above: Performed By: #### 3 084-1, 89463-9 #### [facility] [address] [place] [address] [employer] [place] [id number] Calcium [Mass/Vol] 9.8 mg/dL Normal 8.5-10.1 [facility] Comment on above: Performed By: #### 3 084-1, 23736-7 #### [facility] [address] [place] [address] [employer] [place] [id number] Chloride [Moles/Vol] 106 mmol/L Normal 98-107 [facility] Comment on above: Performed By: #### 3 084-1, #### [facility] [address] [place] [address] [employer] [place] CLIA [id number] CO2 [Moles/Vol] 24 mmol/L Normal 21-32 [facility] Comment on above: Performed By: #### 3 084-1, 84769-8 #### [facility] [address] [place] [address] [employer] [place] CLIA [id number] Glucose [Mass/Vol] 92 mg/dL Normal 74-106 [facility] Comment on above: Performed By: #### 3 084-1, 32355-1 #### [facility] [address] [place] [address] [employer] [place] CLIA [id number] Potassium [Moles/Vol] 3.5 mmol/L Normal 3.5-5.1 [facility] Comment on above: Performed By: #### 3 084-1, 54044-2 #### [facility] [address] [place] [address] [employer] [place] CLIA [id number] Protein [Mass/Vol] 7.7 g/dL Normal 6.4-8.2 [facility] Comment on above: Performed By: #### 3 084-1, 93401-5 #### [address] [place] [address] [employer] [facility] [id number] Sodium [Moles/Vol] 136 mmol/L Normal 136-145 [facility] Comment on above: Performed By: #### 3 084-1, 20967-8 #### [address] [place] [address] [employer] [facility] [id number] Urea nitrogen [Mass/Vol] 12 mg/dL Normal 7-17 [facility] Comment on above: Performed By: #### 3 084-1, 52840-8 #### [address] [place] [address] [employer] [facility] [id number] Creatinine renal clearance ( 24H U+S/P) [Vol/Time]on 05-23-2023 Creatinine (U) [Mass/Vol] 73.20 mg/dL Normal [facility] Comment on above: Performed By: #### T ESTFT #### Performed for [place] [address] HEP B SURFACE Agon HBV surface Ag Ql (S) Non-Reactive Normal NONREACTIVE [facility] Comment on above: Performed By: #### T ESTFT #### Performed for [place] [address] HHBVSAG INTERPRETATION OF RESULTS A NONREACTIVE test result means that the specimen is presumed to be negative for HBsAg. A REACTIVE test result means that the specimen is reactive for HBsAg. All reactive results will be followed up with confirmatory testing. Normal [facility] Comment on above: Performed By: #### T ESTFT #### Performed for [place] [address] HEP C Ab with REFLEX CONFIRM ATIONon 05-23-2023 HEP C Ab Non-Reactive Normal [facility] Comment on above: Performed By: #### T ESTFT #### Performed for [address] [place] [address] HHCV INTERPRETATION OF RESULTS A NONREACTIVE test result means that the specimen is presumed to be negative for Hep C Ab. A REACTIVE test result means that the specimen is reactive for Hep C Ab. All reactive results will be followed up with confirmatory testing. Normal [facility] Comment on above: Performed By: #### T ESTFT #### Performed for [place] [address] [address] [place] [address] HIV RAPID W/CONFIRMATIONon 0 05-23-2023 HHIV INTERPRETATION [...] be followed up with confirmatory testing. Normal [facility] Comment on above: Performed By: #### H IVRAP #### [place] [address] [place] [address] [employer] [id number] HIV 1+2 Ab Ql (S) Non-Reactive Normal NON REACTIVE [facility] Comment on above: Performed By: #### H IVRAP #### [place] [address] [place] [address] [employer] [id number] Non-Reactive Normal NON REACTIVE [facility] Comment on above: Performed By: #### H IVRAP #### [place] [address] [place] [address] [employer] [place] [id number] Protein (24H U) [Mass/Time]o n 05-23-2023 Protein (U) [Mass/Vol] 8 mg/dL Normal <=12 [facility] Comment on above: Performed By: #### V G #### Performed for [place] [address] [place] [address] RUBELLA Ab IgGon 05-23-2023 Rubella virus IgG IA Ql 89.1 IU/mL Normal [facility] Comment on above: Performed By: #### V G #### Performed for [facility] [address] [place], [place] [address] Rubella virus IgG IA Qlon HRUBELLA RUBELLA IgG INTERPRETATION <5.0 IU/mL Non-immune 5.0-9.9 IU/mL Equivocal >10.0 IU/mL Immune Normal [facility] Comment on above: Performed By: #### V G #### Performed for [facility] [address] [place], [place] [address] URIC ACIDon 05-23-2023 Urate [Mass/Vol] 4.8 mg/dL Normal 2.6-6.0 [facility] Comment on above: Performed By: #### 3 084-1, 49737-7 #### [place] [address] [place], [place] [address] [employer] [id number] URINE CREATININE CLEARANCE 2 4 HRon 05-23-2023 Creatinine renal clearance (24H U+S/P) [Vol/Time] 143 mL/min High 88-128 [facility] Comment on above: Performed By: #### T ESTFT #### Performed for [place] [address] [place], [place] [address] Specimen volume (24H U) [address] [facility] Comment on above: Performed By: #### T ESTFT #### Performed for [facility] [address] [place], [place] [address] Performed By: #### V G #### Performed for [place] [address] [place], [place] [address] URINE PROTEIN 24 HRon 2023 Protein (24H U) [Mass/Time] 150 mg/24 Hours Normal 42-225 [facility] Comment on above: Performed By: #### V G #### Performed for [facility] [address] [place], [place] [address] URINE PROTEIN to CREAT RATIO RANDOMon 05-23-2023 Creatinine (U) [Mass/Vol] 36.50 mg/dL Normal [facility] Comment on above: Performed By: #### V G #### Performed for [facility] [address] [place], [place] [address] Protein Ql (U) <5 Normal <=12 [facility] Comment on above: Performed By: #### V G #### Performed for [facility] [address] [place], [place] [address] URINE IL/CR RATIO Normal N/A-0.2 [facility] Comment on above: Performed By: #### V G #### Performed for [facility] [address] [place], [place] [address] VARICELLA-ZOSTER IgGon 05-23 HVARZOSG VARICELLA-ZOSTER IgG INTERPRETATION TV < 0.60 Negative 0.60 /= 0.[address] [facility] Comment on above: Performed By: #### T ESTFT #### Performed for [facility] [address] [place], [place] [address] VARICELLA-ZOSTER IgG 1.40 IU/mL Normal [facility] Comment on above: Performed By: #### T ESTFT #### Performed for [facility] [address] [place], [place] [address] CHLAM GONORRHEA and TRICH NA Aon 05-18-2023 Chlamydia by GABRIELA Negative Normal Negative [facility] Comment on above: Performed By: #### V G #### Performed for [facility] [address] [place], [place] [address] Gonococcus by GABRIELA Negative Normal Negative [facility] Comment on above: Performed By: #### V G #### Performed for [facility] [address] [place], [place] [address] Trich vag by GABRIELA Negative Normal Negative [facility] Comment on above: Performed By: #### V G #### Performed for [facility] [address] [place], [place] [address] CULTURE URINEon 05-14-2023 CULTURE URINE NO PATHOGENS GROWN AFTER [address] [facility] Comment on above: Performed By: #### P ROGEST, PROLAC, ESTROG, FSH #### Performed for [facility] [address] [place], [place] [address] Cardiac echo study Procedure Ordered By: Jaxson Odom on 05-06-2023 Ao ASC [facility] 1.38 [facility] Phone: Ao peak rafia 1.60 m/s [facility] Work Phone: Ao SOV index 1.27 cm/m2 [facility] Work Phone: Ao STJ index 1.06 cm/m2 [facility] Work Phone: Ao VTI 31.29 cm [facility] Work Phone: Ascending aorta 2.70 cm [facility] Work Phone: AV LVOT peak gradient 7 mmHg [facility] Work Phone: AV mean gradient 5 mmHg [facility] Work Phone: AV peak [facility] 10 [facility] valve area 2.28 cm2 [facility] Work Phone: AV Velocity Ratio 0.80 [facility] Work Phone: RUSTY (continuity Vmax) 2.06 cm2 [facility] Work Phone: RUSTY (continuity VTI) 2.28 cm2 [facility] Work Phone: RUSTY index (continuity Vmax) 1.05 m/s [facility] Work Phone: RUSTY index (continuity VTI) 1.16 cm2/m2 [facility] Work Phone: Avg e' pk rafia 0.17 m[facility]s [facility] Work Phone: Avg E/e' ratio 9.72 [facility] Work Phone: Body surface area Derived from formula 1.96 m2 [facility] Work Phone: BP EF 57 % [facility] Work Phone: DI (Vmax) 0.80 [facility] Work Phone: DI (VTI) 0.89 m/2 [facility] Work Phone: E wave decelartion time 215.66 msec [facility] Work Phone: e' lateral pk rafia 0.1882 m/s [facility] Work Phone: e' lateral pk rafia 0.19 m/s [facility] Work Phone: e' septal pk rafia 0.1528 m/s [facility]: e' septal pk rafia 0.15 m/s [facility] Work [facility]: E/A ratio 2.41 [facility] Work Phone: E/e' lateral [facility] 8.71 [facility]: E/e' septal ratio 10.73 [facility] Work Phone: EF SP 2CH 58 [facility] Work Phone: EF SP 4CH 57 [facility] Work Phone: EST RAP 3.00 mmHg [facility] Work Phone: EST RVSP 20 mmHg [facility] Work Phone: FS 28 % 28 - 44 % [facility] Work Phone: IVC ostium 1.12 cm [facility] Work Phone: IVS 0.97 cm [facility] Work Phone: LA AREA 2CH 13.52 cm2 [facility] Work Phone: LA area 4CH 12.55 cm2 [facility] Work Phone: LA ESV BP (MOD) 30 mL [facility] Work Phone: LA ESV BP (MOD) index 15 mL/m2 [facility] Work Phone: LA ESV SP 2CH (MOD) 33 mL [facility] Work Phone: LA ESV SP 4CH (MOD) 27 mL [facility] Work Phone: LA size 2.89 cm [facility] Work Phone: LEFT ATRIAL DIAMETER INDEX 1.47 cm/m2 [facility] Work Phone: LV EDV BP 86 mL [facility] Work Phone: LV EDV SP 2CH 78 mL [facility] Work Phone: LV EDV SP 4CH 94 mL [facility] Work Phone: LV ESV BP 37 mL [facility] Work Phone: LV ESV SP 2CH 33 mL [facility] Work Phone: LV ESV SP 4CH 40 mL [facility] Work Phone: LV mass 106.97 g [facility] Work Phone: LV Mass Index 54.6 g/m2 [facility] Work Phone: LV RWT 0.48 [facility] Work Phone: LV stroke volume BP (ml) 49 mL [facility] Work Phone: LV stroke volume index BP 25.00 mL/m2 [facility] Work Phone: LVIDD 3.79 cm [facility] Work Phone: LVIDS 2.73 cm [facility] Work Phone: LVOT area 2.57 cm2 [facility] Work Phone: LVOT diameter 1.81 cm [facility] Work Phone: LVOT peak rafia 1.28 m/s [facility] Work Phone: LVOT peak VTI 27.76 cm [facility] Work Phone: LVOT stroke volume 71 cm3 [facility] Work Phone: LVOT stroke volume index 36.42 ml/m2 [facility] Work Phone: MV pk A rafia 0.68 m/s [facility] Work Phone: MV pk E rafia 1.64 m/s [facility] Work Phone: MV stenosis pressure 1/2 time 62.54 ms [facility] Work Phone: MV valve area p 1/2 method 3.52 cm2 [facility] Work Phone: [facility] AV VTI RATIO PRE STRESS 0.89 [facility] Work Phone: [facility] ECHO LV BIPLANE SYSTOLIC VOLUME INDEX 18.88 mL/m2 [facility] Work Phone: [facility] ECHO LV BP DIASTOLIC VOLUME INDEX 43.88 mL/m2 [facility] Work Phone: [facility] RVOT VTI RATIO 0.86 [facility] Work Phone: PV mean gradient 3 mmHg [facility] Work Phone: PV peak gradient 6 mmHg [facility] Work Phone: PV PK RAFIA 1.18 m/s [facility] Work Phone: PV VTI 24.23 cm [facility] Work Phone: PW 0.91 cm [facility] Work Phone: RA area 4CH (MOD) 10.[address] [facility] Work Phone: RA vol index 4CH (MOD) 9.69 mL/m2 [facility] Work Phone: Right atrium volume 4 chamber method of disks 19 mL [facility] Work Phone: RV Area diastolic 13.[address] [facility] Work Phone: RV Area systolic 7.99 cm2 [facility] Work Phone: RV basal diam 2.69 cm [facility] Work Phone: RV Fractional area change 39.1 % [facility] Work Phone: RV long diam 8.36 cm [facility] Work Phone: RV mid diam 1.99 cm [facility] Work Phone: RV S' 14.30 cm/s [facility] Work Phone: RVOT peak gradient 3 mmHg [facility] Work Phone: RVOT peak rafia 0.84 m/s [facility] Work Phone: RVOT peak VTI 20.91 cm [facility] Work Phone: Sinus 2.49 cm [facility] Work Phone: STJ 2.08 cm [facility] Work Phone: Stroke Volume 71 cm/mL [facility] Work Phone: Stroke volume index 36 [facility] Work Phone: TAPSE 3.00 cm [facility] Work Phone: TR pk grad 17 mmHg [facility] Work Phone: TR pk rafia 2.04 m/s [facility] Work Phone: [facility] Work Phone: Cardiac echo study Procedure on [...] The left ventricular wall motion is normal. [facility] Radiology Study observation (narrative) [facility] ECHOCARDIOGRAMon 05-06-2023 Echocardiography ? Left Ventricle: Chamber [...] Reading Role Read Date [place] Abebe Echo Granger 05/06/2023 Wall Scoring Score Index: 1.00 The [...] complete echocardiography (more content not included)... Normal [facility] CHEM 7 (LYTES,BUN,CREA,GLUC) on 04-24-2023 Anion gap [Moles/Vol] 11 mmol/L Normal 7- [place] [facility] Comment on above: Performed By: #### C HM7 #### [facility] (DEFAULT) [address] [address] Chloride [Moles/Vol] 106 mmol/L Normal 98-108 [facility] Comment on above: Performed By: #### C HM7 #### [facility] (DEFAULT) [address] [address] CO2 [Moles/Vol] 23 mmol/L Normal 21-31 [facility] Comment on above: Performed By: #### C HM7 #### U [facility] (DEFAULT) [address] [place] [address] Creatinine [Mass/Vol] 0.79 mg/dL Normal 0.50-1.20 [facility] Comment on above: Performed By: #### C HM7 #### U [facility] (DEFAULT) [address] [place] [address] eGFR, CKD-EPI, Female > Normal >=60 [facility] Comment on above: Result Comment: Repo rted eGFR is based on the CKD-EPI 2020 equation using creatinine, age, and sex. Performed By: #### C HM7 #### Bharath [facility] (DEFAULT) [address] [place] [address] Glucose [Mass/Vol] 100 mg/dL High 70-99 [facility] Comment on above: Performed By: #### C HM7 #### Bharath [facility] (DEFAULT) [address] [place] [address] Osmolality [Osmolality] 285 mosm/kg Normal 278-305 [facility] Comment on above: Performed By: #### C HM7 #### Bharath [facility] (DEFAULT) [address] [place] [address] Potassium [Moles/Vol] 3.7 mmol/L Normal 3.5-5.0 [facility] Comment on above: Performed By: #### C HM7 #### U [facility] (DEFAULT) [address] [place] [address] Sodium [Moles/Vol] 136 mmol/L Normal 135-145 [facility] Comment on above: Performed By: #### C HM7 #### U [facility] (DEFAULT) [address] [place] [address] Urea nitrogen [Mass/Vol] 13 mg/dL Normal 7-25 [facility] Comment on above: Performed By: #### C HM7 #### [facility] (DEFAULT) [address] [place] [address] Urea nitrogen/Creatinine [Mass ratio] 16 mg/mg Normal [facility] Comment on above: Performed By: #### C HM7 #### [facility] (DEFAULT) [address] [place] [address] Anion gap [Moles/Vol] 11 mmol/L 7 - 17 mmol/L [facility] Chloride [Moles/Vol] 106 mmol/L 98 - 108 mmol/L [facility] CO2 [Moles/Vol] 23 mmol/L 21 - 31 mmol/L [facility] Creatinine [Mass/Vol] 0.79 mg/dL 0.50 - 1.20 mg/dL [facility] eGFR, CKD-EPI, Female - PINF [facility] Comment on above: Reported eGFR is bas ed on the CKD-EPI 2020 equation using creatinine, age, and sex. Glucose [Mass/Vol] 100 mg/dL High 70 - 99 mg/dL [facility] Interpretation and review of laboratory results Abnormal [facility] Osmolality Calc [Osmolality] 285 [facility] Potassium [Moles/Vol] 3.7 mmol/L 3.5 - 5.0 mmol/L [facility] Sodium [Moles/Vol] 136 mmol/L 135 - 145 mmol/L [facility] Urea nitrogen [Mass/Vol] 13 mg/dL 7 - 25 mg/dL [facility] Urea nitrogen/Creatinine [Mass ratio] 16 mg/mg [facility] HEMOGLOBIN A1Con 04-24-2023 Average glucose Estimated from glycated hemoglobin (Bld) [Mass/Vol] 103 mg/dL [facility] HbA1c (Bld) [Mass fraction] 5.2 % 4.7 - 5.6 % [facility] LT BLUE TOP TUBEon [facility] MR Brain WO contraston 04-24 IMPRESSION: No [...] evidence of acute infarct or mass effect. [facility] Radiology Study observation (narrative) [facility] MR Brain WO contrastOrdered By: Shameka Cobb on 04-24-2023 [facility] Work Phone: MRI BRAIN WITHOUT CONTRASTon 04-24-2023 [...] of acute infarct or mass effect. Normal [facility] PT,INR,PTTon 04-24-2023 aPTT Coag (Bld) [Time] 30.7 s Normal 24.0-34.3 [facility] Comment on above: Performed By: #### P TPTT #### [facility] (DEFAULT) [address] [place] [phone] INR Coag (PPP) [Relative time] 1.0 {INR} Normal 0.9-1.1 [facility] Comment on above: Performed By: #### P TPTT #### [facility] (DEFAULT) [address] [place] [address] PT Coag (PPP) [Time] 13.3 s Normal 11.9-14.2 [facility] Comment on above: Performed By: #### P TPTT #### [facility] (DEFAULT) [address] [address] aPTT Coag (PPP) [Time] 30.7 s [facility] INR Coag (Bld) [Relative time] 1.0 {INR} 0.9 - 1.1 [facility] Interpretation and review of laboratory results Normal [facility] PT Coag (PPP) [Time] 13.3 s [facility] BETA HCG, QUANT, BLOODon HCG (Quant) Serum 22.5 mIU/mL Normal [facility] Comment on above: Result Comment: Non- : [...] #### H YASMINE, MGO, C7ED, QHCGB #### [facility] (DEFAULT) [address] [address] CBC AND ELECTRONIC DIFFon Basophils (Bld) [#/Vol] 0.04 10*3/uL Normal 0.00-0.15 [facility] Comment on above: Performed By: #### John 1CB, [id number] #### [facility] (DEFAULT) [address] [address] Basophils/100 WBC (Bld) 0.5 % Normal [facility] Comment on above: Performed By: #### John 1CB, [id number] #### [facility] (DEFAULT) [address] [place] [address] DIFF STATUS Electronic Differential Normal [facility] Comment on above: Performed By: #### John 1CB, [id number] #### [facility] (DEFAULT) [address] [place] [address]444 Eosinophils (Bld) [#/Vol] 0.33 10*3/uL Normal 0.00-0.42 [facility] Comment on above: Performed By: #### John 1CB, [id number] #### [facility] (DEFAULT) [address] [place] [address] 32642 Eosinophils/100 WBC (Bld) 3.8 % Normal [facility] Comment on above: Performed By: #### John 1CB, [id number] #### [facility] (DEFAULT) [address] [place] [address]304 Hematocrit (Bld) [Volume fraction] 43.7 % Normal 34.9-44.3 [facility] Comment on above: Performed By: #### John 1CB, [id number] #### [facility] (DEFAULT) [address] [place] [address]26 Hemoglobin (Bld) [Mass/Vol] 14.5 g/dL Normal 11.4-15.2 [facility] Comment on above: Performed By: #### John 1CB, [id number] #### [facility] (DEFAULT) [address] [place] [address] 24417 Immature Grans % 0.1 % Normal [facility] Comment on above: Performed By: #### John 1CB, [id number] #### [facility] (DEFAULT) [address] [place] [address] 89001 Immature Grans Absolute < Normal <=0.08 [facility] Comment on above: Performed By: #### John 1CB, [id number] #### [facility] (DEFAULT) [address] [place] [address]402 Lymphocytes (Bld) [#/Vol] 2.17 10*3/uL Normal 1.16-3.51 [facility] Comment on above: Performed By: #### A 1CB, [id number] #### [facility] (DEFAULT) [address] [place] [address] 21345 Lymphocytes/100 WBC (Bld) 25.0 % Normal [facility] Comment on above: Performed By: #### A 1CB, [id number] #### [facility] (DEFAULT) [address] [place] [address] 63562 MCV (RBC) [Entitic vol] 89.4 fL Normal 79.6-97.7 [facility] Comment on above: Performed By: #### A 1CB, [id number] #### [facility] (DEFAULT) [address] [address] Mean Cell Hgb 29.7 pg Normal 25.9-33.9 [facility] Comment on above: Performed By: #### John 1CB, [id number] #### [facility] (DEFAULT) [address] [address] Mean Cell Hgb Conc 33.2 g/dL Normal 31.4-35.9 [facility] Comment on above: Performed By: #### John 1CB, [id number] #### [facility] (DEFAULT) [address] [address] Monocytes (Bld) [#/Vol] 0.69 10*3/uL Normal 0.22-0.87 [facility] Comment on above: Performed By: #### A 1CB, [id number] #### [facility] (DEFAULT) [address] [address] Monocytes/100 WBC (Bld) 8.0 % Normal [facility] Comment on above: Performed By: #### A 1CB, [id number] #### [facility] (DEFAULT) [address] [address] Nucleated RBC 0.0 /100 WBC Normal <=0.2 [facility] Comment on above: Performed By: #### John 1CB, [id number] #### [facility] (DEFAULT) [address] [place] [address] Platelet mean volume (Bld) [Entitic vol] 10.5 fL Normal 8.5-12.2 [facility] Comment on above: Performed By: #### John 1CB, [id number] #### [facility] (DEFAULT) [address] [place] [address]66 Platelets (Bld) [#/Vol] 297 10*3/uL Normal 150-393 [facility] Comment on above: Performed By: #### John 1CB, [id number] #### [facility] (DEFAULT) [address] [place] [address] 67662 RBC (Bld) [#/Vol] 4.89 10*6/uL Normal 3.91-5.04 [facility] Comment on above: Performed By: #### John WHITE, [id number] #### [facility] (DEFAULT) [address] [place] [address] 85664 RBC Distribution 11.9 % Normal 10.8-14.9 [facility] Comment on above: Performed By: #### John WHITE, [id number] #### [facility] (DEFAULT) [address] [place] [address]69 Segs + Bands Auto 62.6 % Normal [facility] Comment on above: Performed By: #### John 1CB, [id number] #### [facility] (DEFAULT) [address] [place] [address] Segs + Bands,Absolute Auto 5.43 K/uL Normal 1.64-7.28 [facility] Comment on above: Performed By: #### John 1CB, [id number] #### [facility] (DEFAULT) [address] [place] [address]289 WBC (Bld) [#/Vol] 8.67 10*3/uL Normal 3.99-11.19 [facility] Comment on above: Performed By: #### John 1CB, [id number] #### [facility] (DEFAULT) [address] [place] [address] Basophils (Bld) [#/Vol] 0.04 10*3/uL 0.00 - 0.15 [facility] Basophils/100 WBC (Bld) 0.5 % [facility] Differential cell count method Nom (Bld) Electronic Differential [facility] Eosinophils (Bld) [#/Vol] 0.33 10*3/uL 0.00 - 0.42 K/uL [facility] Eosinophils/100 WBC (Bld) 3.8 % [facility] Erythrocyte distribution width (RBC) [Ratio] 11.9 % 10.8 - 14.9 % [facility] Hematocrit (Bld) [Volume fraction] 43.7 % 34.9 - 44.3 % [facility] Hemoglobin (Bld) [Mass/Vol] 14.5 g/dL 11.4 - 15.2 g/dL [facility] Immature granulocytes (Bld) [#/Vol] K/uL NINF - 0.08 K/uL [facility] Immature granulocytes/100 WBC (Bld) 0.1 % [facility] Lymphocytes (Bld) [#/Vol] 2.17 10*3/uL 1.16 - 3.51 K/uL [facility] Lymphocytes/100 WBC (Bld) 25.0 % [facility] MCH (RBC) [Entitic mass] 29.7 pg 25.9 - 33.9 pg [facility] MCHC (RBC) [Mass/Vol] 33.2 g/dL 31.4 - 35.9 g/dL [facility] MCV (RBC) [Entitic vol] 89.4 fL 79.6 - 97.7 fL [facility] Monocytes (Bld) [#/Vol] 0.69 10*3/uL 0.22 - 0.87 K/uL [facility] Monocytes/100 WBC (Bld) 8.0 % [facility] Neutrophils (Bld) [#/Vol] 5.43 10*3/uL 1.64 - 7.28 K/uL [facility] Nucleated RBC/100 WBC (Bld) [Ratio] 0.0 % NINF [facility] Platelet mean volume (Bld) [Entitic vol] 10.5 fL 8.5 - 12.2 fL [facility] Platelets (Bld) [#/Vol] 297 10*3/uL 150 - 393 K/uL [facility] RBC (Bld) [#/Vol] 4.89 10*6/uL [facility] Segmented neutrophils/100 WBC (Bld) 62.6 % [facility] WBC (Bld) [#/Vol] 8.67 10*3/uL 3.99 - 11. 19 K/uL [facility] CBC W Auto Differential pane l (Bld)on 04-23-2023 Basophils (Bld) [#/Vol] 0.04 10*3/uL Normal <=0.70 [facility] Comment on above: Performed By: #### 5 7021-8 #### [facility] [address] [facility]. [place] [address] [employer] [place] [id number] Basophils/100 WBC (Bld) 0.5 % Normal <=2.0 [facility] Comment on above: Performed By: #### 5 7021-8 #### [facility] [address] [place] [address] [employer] [place] CLIA [id number] Eosinophils (Bld) [#/Vol] 0.27 10*3/uL Normal <=0.70 [facility] Comment on above: Performed By: #### 5 7021-8 #### [facility] [address] [place] [address] [employer] [place] CLIA [id number] Eosinophils/100 WBC (Bld) 3.3 % Normal <=10.0 [facility] Comment on above: Performed By: #### 5 7021-8 #### [place] [address] [place] [address] [employer] [place] [id number] Erythrocyte distribution width (RBC) [Entitic vol] 38.9 fL Normal 36.4-46.3 [facility] Comment on above: Performed By: #### 5 7021-8 #### [facility] [address] [place], [place] [address] [place] [address] [employer] [place] CLIA [id number] Hematocrit (Bld) [Volume fraction] 41.2 % Normal 37.0-47.0 [facility] Comment on above: Performed By: #### 5 7021-8 #### [address] [place] [address] [employer] [place] [id number] Hemoglobin (Bld) [Mass/Vol] 14.2 g/dL Normal 12.0-16.0 [facility] Comment on above: Performed By: #### 5 7021-8 #### [address] [place] [address] [employer] [place] CLIA [id number] Immature granulocytes (Bld) [#/Vol] 0.03 10*3/uL Normal <=0.10 [facility] Comment on above: Performed By: #### 5 7021-8 #### [address] [place] [address] [employer] [place] CLIA [id number] Immature granulocytes/100 WBC (Bld) 0.40 % Normal <=1.50 [facility] Comment on above: Performed By: #### 5 7021-8 #### [address] [place] [address] [employer] [place] CLIA [id number] Lymphocytes (Bld) [#/Vol] 1.45 10*3/uL Normal 1.20-3.40 [facility] Comment on above: Performed By: #### 5 7021-8 #### [address] [place] [address] [employer] [place] CLIA [id number] Lymphocytes/100 WBC (Bld) 17.5 % Low 20.0-40.0 [facility] Comment on above: Performed By: #### 5 7021-8 #### [place] [address] [facility]. [place] [address] [employer] [place] [id number] MCH (RBC) [Entitic mass] 30.4 pg Normal 27.0-31.0 [facility] Comment on above: Performed By: #### 5 7021-8 #### [address] [place] [address] [employer] VAUGHN [id number] MCHC (RBC) [Mass/Vol] 34.5 g/dL Normal 32.0-36.0 [facility] Comment on above: Performed By: #### 5 7021-8 #### [address] [place] [address] [employer] [place] [id number] MCV (RBC) [Entitic vol] 88.2 fL Normal 80.0-100.0 [facility] Comment on above: Performed By: #### 5 7021-8 #### [address] [place] [address] [employer] [place] [id number] Monocytes (Bld) [#/Vol] 0.61 10*3/uL High 0.10-0.60 [facility] Comment on above: Performed By: #### 5 7021-8 #### [address] [place] [address] [employer] [place] [id number] Monocytes/100 WBC (Bld) 7.4 % Normal <=8.0 [facility] Comment on above: Performed By: #### 5 7021-8 #### [address] [place] [address] [employer] [place] [id number] Neutrophils (Bld) [#/Vol] 5.89 10*3/uL Normal 1.40-6.50 [facility] Comment on above: Performed By: #### 5 7021-8 #### [facility] [address] [place] [address] [employer] [place] [id number] Neutrophils/100 WBC (Bld) 70.9 % High 50.0-70.0 [facility] Comment on above: Performed By: #### 5 7021-8 #### [address] [place] [address] [employer] [place] [id number] Nucleated RBC (Bld) [#/Vol] 0.00 10*3/uL Normal <=0.10 [facility] Comment on above: Performed By: #### 5 7021-8 #### [address] [place] [address] [employer] [place] [id number] Platelet mean volume (Bld) [Entitic vol] 10.5 fL Normal 9.0-13.0 [facility] Comment on above: Performed By: #### 5 7021-8 #### [address] [place] [address] [employer] [place] [id number] Platelets (Bld) [#/Vol] 270 10*3/uL Normal 130-400 [facility] Comment on above: Performed By: #### 5 7021-8 #### [address] [place] [address] [employer] [place] [id number] RBC (Bld) [#/Vol] 4.67 10*6/uL Normal 4.00-6.30 [facility] Comment on above: Performed By: #### 5 7021-8 #### [address] [place] [address] [employer] [place] [id number] WBC (Bld) [#/Vol] 8.29 10*3/uL Normal 4.80-10.80 [facility] Comment on above: Performed By: #### 5 7021-8 #### [place] [address] [place] [address] [employer] GOODWINVIVI [id number] CHEST AP PORTABLEon 04-23-20 CHEST AP PORTABLE EXAMINATION: CHEST AP PORTABLE, 04/23/2023 8:37 AM EST HISTORY: Acute confusion COMPARISON: None. TECHNIQUE: AP portable view of the chest performed. FINDINGS: Medical devices: None. Cardiomediastinal silhouette is within normal limits. The lungs are clear. No large pleural effusion, or pneumothorax. IMPRESSION: 1. No acute cardiopulmonary abnormality. Normal [facility] 7 - EDon 04-23-2023 Anion gap [Moles/Vol] 16 mmol/L 7 - 17 mmol/L [facility] Chloride [Moles/Vol] 105 mmol/L 98 - 108 mmol/L [facility] CO2 [Moles/Vol] 21 mmol/L 21 - 31 mmol/L [facility] Creatinine [Mass/Vol] 0.79 mg/dL 0.50 - 1.20 mg/dL [facility] eGFR, CKD-EPI, Female - PINF [facility] Comment on above: Reported eGFR is bas ed on the CKD-EPI 2020 equation using creatinine, age, and sex. Glucose [Mass/Vol] 105 mg/dL High 70 - 99 mg/dL [facility] Interpretation and review of laboratory results Abnormal [facility] Osmolality Calc [Osmolality] 289 [facility] Potassium [Moles/Vol] 3.8 mmol/L 3.5 - 5.0 mmol/L [facility] Sodium [Moles/Vol] 138 mmol/L 135 - 145 mmol/L [facility] Urea nitrogen [Mass/Vol] 13 mg/dL 7 - 25 mg/dL [facility] Urea nitrogen/Creatinine [Mass ratio] 16 mg/mg [facility] Anion gap [Moles/Vol] 16 mmol/L Normal 7-17 [facility] Comment on above: Performed By: #### H YASMINE, MGO, C7ED, QHCGB #### [facility] (DEFAULT) [address] [place] [address] Chloride [Moles/Vol] 105 mmol/L Normal 98-108 [facility] Comment on above: Performed By: #### H YASMINE, MGO, C7ED, QHCGB #### [facility] (DEFAULT) [address] [place] [address] CO2 [Moles/Vol] 21 mmol/L Normal 21-31 [facility] Comment on above: Performed By: #### H YASMINE, MGO, C7ED, QHCGB #### [facility] (DEFAULT) [address] [place] [address]957 Creatinine [Mass/Vol] 0.79 mg/dL Normal 0.50-1.20 [facility] Comment on above: Performed By: #### H YASMINE, MGO, C7ED, QHCGB #### [facility] (DEFAULT) [address] [place] [address]796 eGFR, CKD-EPI, Female > Normal >=60 [facility] Comment on above: Result Comment: Repo rted eGFR is based on the CKD-EPI 2020 equation using creatinine, age, and sex. Performed By: #### H YASMINE, MGO, C7ED, QHCGB #### [facility] (DEFAULT) [address] [place] [address] 20168 Glucose [Mass/Vol] 105 mg/dL High 70-99 [facility] Comment on above: Performed By: #### H YASMINE, MGO, C7ED, QHCGB #### [facility] (DEFAULT) [address] [place] [address] Osmolality [Osmolality] 289 mosm/kg Normal 278-305 [facility] Comment on above: Performed By: #### H YASMINE, MGO, C7ED, QHCGB #### [facility] (DEFAULT) [address] [place] [address]86[address] Potassium [Moles/Vol] 3.8 mmol/L Normal 3.5-5.0 [facility] Comment on above: Performed By: #### H YASMINE, MGO, C7ED, QHCGB #### [facility] (DEFAULT) [address] [place] [address] Sodium [Moles/Vol] 138 mmol/L Normal 135-145 [facility] Comment on above: Performed By: #### H YASMINE, MGO, C7ED, QHCGB #### [facility] (DEFAULT) [address] [place] [address] Urea nitrogen [Mass/Vol] 13 mg/dL Normal 7-25 [facility] Comment on above: Performed By: #### H YASMINE, MGO, C7ED, QHCGB #### [facility] (DEFAULT) [address] [place] [address] Urea nitrogen/Creatinine [Mass ratio] 16 mg/mg Normal [facility] Comment on above: Performed By: #### H YASMINE, MGO, C7ED, QHCGB #### [facility] (DEFAULT) [address] [place] [address] CTA HEAD AND NECKon 04-23 CT [...] acute findings on noncontrast head CT. Normal [facility] Comprehensive metabolic 2000 panelon 04-23-2023 Albumin [Mass/Vol] 4.4 g/dL Normal 3.4-5.0 [facility] Comment on above: Performed By: #### T ESTFT #### Performed for [facility] [address] [place], [place] [address] ALP [Catalytic activity/Vol] 45 U/L Low 50-136 [facility] Comment on above: Performed By: #### T ESTFT #### Performed for [facility] [address] [place], [place] [address] ALT [Catalytic activity/Vol] 21 U/L Normal 14-59 [facility] Comment on above: Performed By: #### T ESTFT #### Performed for [facility] [address] [place], [place] [address] Anion gap [Moles/Vol] 6.0 mmol/L Normal <=15.0 [facility] Comment on above: Performed By: #### T ESTFT #### Performed for [facility] [address], [place] [address] AST [Catalytic activity/Vol] 16 U/L Normal 15-37 [facility] Comment on above: Performed By: #### T ESTFT #### Performed for [facility] [address] [place], [place] [address] Bilirubin [Mass/Vol] 0.6 mg/dL Normal 0.2-1.0 [facility] Comment on above: Performed By: #### T ESTFT #### Performed for [facility] [address] [place], [place] [address] Calcium [Mass/Vol] 9.6 mg/dL Normal 8.5-10.1 [facility] Comment on above: Performed By: #### T ESTFT #### Performed for [facility] [address] [place], [place] [address] Chloride [Moles/Vol] 106 mmol/L Normal 98-107 [facility] Comment on above: Performed By: #### T ESTFT #### Performed for [facility] [address] [place], [place] [address] CO2 [Moles/Vol] 26 mmol/L Normal 21-32 [facility] Comment on above: Performed By: #### T ESTFT #### Performed for [facility] [address] [place], [place] [address] Creatinine [Mass/Vol] 0.80 mg/dL Normal 0.51-0.95 [facility] Comment on above: Performed By: #### T ESTFT #### Performed for [facility] [address] [place], [place] [address] GFR/1.73 sq M.predicted MDRD (S/P/Bld) [Vol rate/Area] mL/min/{1.73_m2} Normal >=59 [facility] Comment on above: Performed By: #### T ESTFT #### Performed for [facility] [address] [place], [place] [address] Glucose [Mass/Vol] 94 mg/dL Normal 74-106 [facility] Comment on above: Performed By: #### T ESTFT #### Performed for [facility] [address] [place], [place] [address] HGFR GLOMERULAR FILTRATION RATE INTERPRETATION~The eGFR is [...] months, with or without kidney damage.~ Normal [facility] Comment on above: Performed By: #### T ESTFT #### Performed for [address] [address] Potassium [Moles/Vol] 4.2 mmol/L Normal 3.5-5.1 [facility] Comment on above: Performed By: #### T ESTFT #### Performed for [address] [address] Protein [Mass/Vol] 8.2 g/dL Normal 6.4-8.2 [facility] Comment on above: Performed By: #### T ESTFT #### Performed for [address] [address] Sodium [Moles/Vol] 138 mmol/L Normal 136-145 [facility] Comment on above: Performed By: #### T ESTFT #### Performed for [address] [address] Urea nitrogen [Mass/Vol] 15 mg/dL Normal 7-17 [facility] Comment on above: Performed By: #### T ESTFT #### Performed for [address] [address] HCG ( test) Ql HCG.beta subunit [Moles/Vol] 22.5 mmol/L mIU/mL [facility] Comment on above: Non-: <10 mI U/mL Postmenopause: <10 mIU/mL Male: <10 mIU/mL FEMALE GESTATIONAL AGE 2-4 Weeks: 39.1-8,388 mIU/mL 5-6 Weeks: 861-88,769 mIU/mL 6-8 Weeks: 8,636-218,085 mIU/mL 8-10 Weeks: 18,700-244,467 mIU/mL 10-12 Weeks: 23,143-181,899 mIU/mL 13-27 Weeks: 6,303-97,171 mIU/mL 24-40 Weeks: 4,360-74,883 mIU/mL Test results cannot be interpreted as absolute evidence for the presence or absence of malignant disease. [facility] HCG BLOODon 04-23-2023 HCG.beta subunit Qn 15 m[IU]/mL High 1-3 [facility] Comment on above: Performed By: #### T ESTFT #### Performed for [facility] [address] [place], [place] [address] HCG.beta subunit Qnon 2022 [facility] HCG INTERPRETATION The expected values were calculated [...] 6-8 weeks 15,000-200,000 2-3 months 10,000-100,[address] [facility] Comment on above: Performed By: #### T ESTFT #### Performed for [facility] [address] [place], [place] [address] HEMOGLOBIN A1Con 04-23-2023 Glucose [Mass/Vol] 103 mg/dL Normal [facility] Comment on above: Performed By: #### A 1CB, [id number] #### [facility] (DEFAULT) [address] [place] [address] Hemoglobin A1C HPLC 5.2 % Normal 4.7-5.6 [facility] Comment on above: Performed By: #### A 1CB, [id number] #### [facility] (DEFAULT) [address] [place] [address] LIPID PANEL W CALCULATED LDL on 04-23-2023 Cholesterol [Mass/Vol] 163 mg/dL NINF - 200 mg/dL [facility] Comment on above: [<200 mg/dL: Desirab le] [200-239 mg/dL: Borderline High] [>239 mg/dL: High] Cholesterol in HDL [Mass/Vol] 51 mg/dL 40 - PINF mg/dL [facility] Comment on above: [<40 mg/dL: Low (Hig h Risk)] [>59 mg/dL: High (Low Risk)] Cholesterol in LDL [Mass/Vol] 75 mg/dL 0 - 99 mg/dL [facility] Comment on above: [<100 mg/dL: Optimal ] [100-129 mg/dL: Near Optimal] [130-159 mg/dL: Borderline High] [160-189 mg/dL: High] [>189 mg/dL: Very High] Cholesterol non HDL [Mass/Vol] 112 mg/dL NINF - 130 mg/dL [facility] Cholesterol.total/Chol esterol in HDL [Mass ratio] 3.2 {ratio} NINF - 4.5 [facility] Interpretation and review of laboratory results Abnormal [facility] Triglyceride [Mass/Vol] 185 mg/dL High NINF - 150 mg/dL [facility] Comment on above: [<150 mg/dL: Desirab le] [150-199 mg/dL: Borderline] [200-499 mg/dL: High] [>500 mg/dL: Very High] Calculated LDL Cholesterol 75 mg/dL Normal 0-99 [facility] Comment on above: Result Comment: [<10 0 mg/dL: Optimal] [100-129 mg/dL: Near Optimal] [130-159 mg/dL: Borderline High] [160-189 mg/dL: High] [>189 mg/dL: Very High] Performed By: #### H YASMINE, MGO, C7ED, QHCGB #### [facility] (DEFAULT) [address] [address] Cholesterol [Mass/Vol] 163 mg/dL Normal <200 [facility] Comment on above: Result Comment: [<20 0 mg/dL: Desirable] [200-239 mg/dL: Borderline High] [>239 mg/dL: High] Performed By: #### H YASMINE, MGO, C7ED, QHCGB #### [facility] (DEFAULT) [address] [place] [address] Cholesterol in HDL [Mass/Vol] 51 mg/dL Normal >=40 [facility] Comment on above: Result Comment: [<40 mg/dL: Low (High Risk)] [>59 mg/dL: High (Low Risk)] Performed By: #### H YASMINE, MGO, C7ED, QHCGB #### [facility] (DEFAULT) [address] [place] [address] Non HDL Cholesterol 112 mg/dL Normal <130 [facility] Comment on above: Performed By: #### H YASMINE, MGO, C7ED, QHCGB #### [facility] (DEFAULT) [address] [place] [address] Total Cholesterol/HDL Ratio 3.2 Normal <4.5 [facility] [facility] Comment on above: Performed By: #### H YASMINE, MGO, C7ED, QHCGB #### [facility] (DEFAULT) [address] [place] [address] Triglyceride [Mass/Vol] 185 mg/dL High <150 [facility] Comment on above: Result Comment: [<15 0 mg/dL: Desirable] [150-199 mg/dL: Borderline] [200-499 mg/dL: High] [>500 mg/dL: Very High] Performed By: #### H YASMINE, MGO, C7ED, QHCGB #### [facility] (DEFAULT) [address] [place] [address] MAGNESIUMon 04-23-2023 Interpretation and review of laboratory results Normal [facility] Magnesium [Mass/Vol] 2.2 mg/dL 1.6 - 2.6 mg/dL [facility] Magnesium [Mass/Vol] 2.2 mg/dL Normal 1.6-2.6 [facility] Comment on above: Performed By: #### H YASMINE, MGO, C7ED, QHCGB #### [facility] (DEFAULT) [address] [place] [address] Magnesium [Mass/Vol] 2.2 mg/dL Normal 1.6-2.6 [facility] Comment on above: Performed By: #### T ESTFT #### Performed for [address] [address] No Panel Informationon 04-23 [facility] PT and aPTT panel Coag (PPP) on 04-23-2023 aPTT Coag (PPP) [Time] 30.7 s Normal 23.5-31.3 [facility] Comment on above: Performed By: #### P ROGEST, PROLAC, ESTROG, FSH #### Performed for [address] [address] HPTINR INR REFERENCE RANGE INTERPRETATION Patients on Coumadin 2.0 - 3.0 Patients with mechanical heart valves 2.5 - 3.[address] [facility] Comment on above: Performed By: #### P ROGEST, PROLAC, ESTROG, FSH #### Performed for [address] [address] INR Coag (PPP) [Relative time] 1.0 {INR} Normal 0.8-1.1 [facility] Comment on above: Performed By: #### P ROGEST, PROLAC, ESTROG, FSH #### Performed for [address] [address] PT Coag (PPP) [Time] 10.7 s Normal 9.3-11.5 [facility] Comment on above: Performed By: #### P ROGEST, PROLAC, ESTROG, FSH #### Performed for [address] [address] TROPONIN HIGH SENSITIVITYon 04-23-2023 TNIH 3.60 pg/mL Normal <=59.00 [facility] Comment on above: Result Comment: <59 pg/mL is considered a negative result. Performed By: #### P ROGEST, PROLAC, ESTROG, FSH #### Performed for [address] [place], [place] [address] TNIH <3.00 Normal <=59.00 [facility] Comment on above: Result Comment: <59 pg/mL is considered a negative result. Performed By: #### P ROGEST, PROLAC, ESTROG, FSH #### Performed for [facility] [address], [place] [address] URINALYSIS with reflex to CU LTUREon 04-23-2023 Bacteria LM Ql (Urine sed) Negative Normal TRACE [facility] Comment on above: Performed By: #### V G #### Performed for [facility] [address], [place] [address] Bilirubin (U) [Mass/Vol] Negative Normal NEGATIVE [facility] Comment on above: Performed By: #### V G #### Performed for [facility] [address] [place], [place] [address] Clarity (U) CLEAR Normal CLEAR [facility] Comment on above: Performed By: #### V G #### Performed for [facility] [address], [place] [address] Color (U) YELLOW Normal YELLOW [facility] Comment on above: Performed By: #### V G #### Performed for [address] [place], [place] [address] Glucose Test strip (U) [Mass/Vol] Negative Normal NEGATIVE [facility] Comment on above: Performed By: #### V G #### Performed for [facility] [address], [place] [address] HMICRO MICROSCOPIC Normal [facility] Comment on above: Performed By: #### V G #### Performed for [facility] [address], [place] [address] Hyaline casts (Urine sed) [#/Area] 0-8 Normal 0-8 [facility] Comment on above: Performed By: #### V G #### Performed for [address] [place], [place] [address] Ketones (U) [Mass/Vol] Negative Normal NEGATIVE [facility] Comment on above: Performed By: #### V G #### Performed for [facility] [address], [place] [address] Leukocyte esterase Qn (U) Negative Normal TRACE [facility] Comment on above: Performed By: #### V G #### Performed for [facility] [address] [place], [place] [address] Nitrite Ql (U) Negative Normal NEGATIVE [facility] Comment on above: Performed By: #### V G #### Performed for [facility] [address], [place] [address] pH (U) 5.5 [pH] Normal 5.5-7.5 [facility] Comment on above: Performed By: #### V G #### Performed for [facility] [address] [place], [place] [address] Protein (U) [Mass/Vol] Negative Normal NEGATIVE [facility] Comment on above: Performed By: #### V G #### Performed for [facility] [address] [place], [place] [address] RBC (U) [#/Vol] TRACE Abnormal NEGATIVE [facility] Comment on above: Performed By: #### V G #### Performed for [facility] [address] [place], [place] [address] RBC LM.HPF (Urine sed) [#/Area] 0-4 Normal 0-4 [facility] Comment on above: Performed By: #### V G #### Performed for [address] [place], [place] [address] Specific gravity (U) [Rel density] 1.012 Normal 1.010-1.035 [facility] Comment on above: Performed By: #### V G #### Performed for [facility] [address] [place], [place] [address] SQUAMOUS EPITHELIALS 0-5 Normal 0-5 [facility] Comment on above: Performed By: #### V G #### Performed for [address] [address] Urobilinogen Qn (U) 0.2 {Margot'U}/dL Normal <=1.0 [facility] Comment on above: Performed By: #### V G #### Performed for [facility] [address] [place], [place] [address] WBC LM.HPF (Urine sed) [#/Area] 0-5 Normal 0-5 [facility] Comment on above: Performed By: #### V G #### Performed for [facility] [address] [place], [place] [address] URINE QUALITATIVEo n 04-23-2023 HCG ( test) Ql (U) Negative Normal NEGATIVE [facility] Comment on above: Performed By: #### V G #### Performed for [facility] [address] [place], [place] [address] TESTOSTERONE FREE and TOTALo n 03-23-2023 % Free Testosterone 1.91 % Normal 0.50-2.80 [facility] Comment on above: Result Comment: Perf ormed at: BN Performed By: #### T ESTFT #### Performed for [facility] [address], [place] [address] Testosterone [Mass/Vol] 8 ng/dL Normal 8-60 [facility] Comment on above: Result Comment: Perf ormed at: CB Performed By: #### T ESTFT #### Performed for [facility] [address], [place] [address] Testosterone,Free 0.15 ng/dL Normal 0.10-0.85 [facility] Comment on above: Result Comment: Perf ormed at: BN Performed By: #### T ESTFT #### Performed for [place] [address], [place] [address] ESTROGENon 03-22-2023 Estrogens, Total 240 pg/mL Normal [facility] Comment on above: Result Comment: Prep ubertal < 40 Female Cycle: 1-10 Days 16 - 328 11-20 Days 34 - 501 21-30 Days 48 - 350 Post-Menopausal 40 - 244 Performed By: #### P ROGEST, PROLAC, ESTROG, FSH #### Performed for [place] [address], [place] [address] VAGINITIS VG NUSWABon 2022 Atopobium vaginae Low - [address] [facility] Comment on above: Performed By: #### V G #### Performed for [facility] [address], [place] [address] BVAB 2 Low - [address] [facility] Comment on above: Performed By: #### V G #### Performed for [place] [address], [place] [address] Sarita albicans, GABRIELA Positive Abnormal Negative [facility] Comment on above: Performed By: #### V G #### Performed for [facility] [address], [place] [address] Sarita glabrata, GABRIELA Negative Normal Negative [facility] Comment on above: Performed By: #### V G #### Performed for [place] [address] Megasphaera 1 Low - [address] [facility] Comment on above: Result Comment: Calc ulate [...] developed and its performance characteristics determined by [employer]. It has not been cleared or approved by the Food and Drug Administration. Performed By: #### V G #### Performed for [place] [address] Trich vag by GABRIELA Negative Normal Negative [facility] Comment on above: Performed By: #### V G #### Performed [address] [place] [address] FSHon 03-19-2023 FSH 5.5 mIU/mL Normal [facility] Comment on above: Result Comment: Adul t Female Range Follicular phase 3.5 - 12.5 Ovulation phase 4.7 - 21.5 Luteal phase 1.7 - 7.7 Postmenopausal 25.8 - 134.8 Performed By: #### P ROGEST, PROLAC, ESTROG, FSH #### Performed for [place] [address] PROGESTERONEon 03-19-2023 Progesterone 0.1 ng/mL Normal [facility] Comment on above: Result Comment: Foll icular phase 0.1 - 0.9 Luteal phase 1.8 - 23.9 Ovulation phase 0.1 - 12.0 First trimester 11.0 - 44.3 Second trimester 25.4 - 83.3 Third trimester 58.7 - 214.0 Postmenopausal 0.0 - 0.1 Performed By: #### P ROGEST, PROLAC, ESTROG, FSH #### Performed for [address] [address] PROLACTINon 03-19-2023 Prolactin 15.2 ng/mL Normal 4.8-23.3 [facility] Comment on above: Performed By: #### P ROGEST, PROLAC, ESTROG, FSH #### Performed for [address] [address] HCG BLOODon 03-17-2023 HCG.beta subunit Qn m[IU]/mL Normal 1-3 [facility] Comment on above: Performed By: #### T ESTFT #### Performed for [address] [address] HCG.beta subunit Qnon 2022 [facility] HCG INTERPRETATION The expected values were calculated [...] 6-8 weeks 15,000-200,000 2-3 months 10,000-100,[address] [facility] Comment on above: Performed By: #### T ESTFT #### Performed for [address] [address] PT Coag (PPP) [Time]on 03-17 HPTINR INR REFERENCE RANGE INTERPRETATION Patients on Coumadin 2.0 - 3.0 Patients with mechanical heart valves 2.5 - 3.[address] [facility] Comment on above: Performed By: #### P ROGEST, PROLAC, ESTROG, FSH #### Performed for [address] [place], [place] [address] INR Coag (PPP) [Relative time] 1.0 {INR} Normal 0.8-1.1 [facility] Comment on above: Performed By: #### P ROGEST, PROLAC, ESTROG, FSH #### Performed for [address] [place], [place] [address] PT with INRon 03-17-2023 PT Coag (PPP) [Time] 10.2 s Normal 9.3-11.5 [facility] Comment on above: Performed By: #### P ROGEST, PROLAC, ESTROG, FSH #### Performed for [address] [address] THYROID CASCADE PROFILEon TSH Qn 1.010 uIU/mL Normal 0.358-3.740 [facility] Comment on above: Performed By: #### P ROGEST, PROLAC, ESTROG, FSH #### Performed for [address] [address] ANES POSTPROC EVALon 022 ANES POSTPROC EVAL HNO ID: [id number] Author: Mando Forde MD Service: Anesthesiology Author Type: Anesthesiologist Type: Anesthesia Postprocedure Evaluation Filed: 06/26/2021 2:21 PM Note Text: POST ANESTHESIA EVALUATION NOTE : 1990 Procedure Summary Date: 06/26/21 Room / Location: [place] OR05 / [place] Anesthesia Start: 1240 Anesthesia Stop: 1350 [...] June 26, 2021 TIME: 2:21 PM CSN: [id number] [facility] ANES PRE-OPon 06-26-2021 ANES PRE-OP HNO ID: [id number] Author: Rafael Justice MD Service: Anesthesiology Author Type: Anesthesiologist Type: Anesthesia Preprocedure Evaluation Filed: 06/26/2021 10:42 AM Note Text: ANESTHESIOLOGY DAY OF SURGERY NOTE : 1990 Procedure Information Date/Time: 06/26/21 1135 Procedure: LAPAROSCOPIC CHOLECYSTECTOMY (N/A ) Location: [place] [address] / [place] Surgeons: Hillary Covarrubias MD Estimated body [...] June 26, 2021 TIME: 10:42 AM CSN: [id number] [facility] BRIEF OP NOTon 06-26-2021 BRIEF OP NOT HNO ID: [id number] Author: Hillary Covarrubias MD Service: General Surgery Author Type: Physician Type: Brief Op Note Filed: 06/26/2021 1:42 PM Note Text: BRIEF OPERATIVE NOTATION FOR SURGICAL PROCEDURE. Clarisa De La Cruz 1990 [id number] female LOG ID: [id number] Surgery/Procedure Date: 06/26/2021 Incision/Procedure Start Time: 12:58 PM Incision Close/Procedure End Time: 1:37 PM Surgeon(s)/Procedura list(s) and Digital Account Manager(s): Surgeon(s) and Role: * Hillary Covarrubias MD - Primary Nurse Practitioner: Ita Merchant APRN.TELETYPE OPERATOR Registered Nurse Accounts Payable Processor: Cari Boothe RN REFERRING PHYSICIAN: Outpatient DEPT: [facility] PROVIDER: Marilin POS: [id number] ANESTHESIA: General ASA CLASS: 2 - mild DIAGNOSIS: biliary colic PROCEDURE: LAPAROSCOPIC CHOLECYSTECTOMY WITH INTRAOPERATIVE CHOLEANGIOGRAM - [id number] IVF: 600 EBL: 15 Specimens: gallbladder ADDITIONAL DIAGNOSES: FINDINGS: small stone flushed with cholangiogram COMPLICATIONS: None PMHx - PAST MEDICAL HISTORY Diagnosis Date - Arachnoid cyst - Lyme disease - Mesenteric lymphadenitis - POTS (postural orthostatic tachycardia syndrome) COMORBIDITIES - None Post Op Occurrences - None Wound Classification - Clean Contaminated Operative note dictated in the dictation system. - [id number] Hillary Covarrubias MD [facility] HISTORY PHYSICALon HISTORY PHYSICAL HNO ID: [id number] Author: Hillary Covarrubias MD Service: General Surgery [...] sclera are anicteric (more content not included)... [facility] NURSING PROGon 06-26-2021 NURSING PROG HNO ID: [id number] Author: Geovanna Ortiz RN Service: Nursing Author Type: Registered Nurse Type: Nursing Progress Note Filed: 06/26/2021 3:48 PM Note Text: Nursing Progress Note Patient Name: Clarisa De La Cruz Patient Location: [place] Surgery/[place] Surgery up to bathroom to void, with pt, splinting dicussed able to void. This note was completed by: Geovanna Ortiz [facility] OPERATIVE NOon 06-26-2021 OPERATIVE NO HNO ID: [id number] Author: Hillary Covarrubias MD Service: General Surgery Author Type: Physician Type: Operative Report Filed: 06/26/2021 7:14 PM Note Text: [facility] - Operative Report CLARISA DE LA CRUZ : 1990 AGE: 31. SEX: F PATIENT TYPE: [place] [facility] [place] [facility] LOCATION: [facility] ATTENDING PHYSICIAN: HILLARY COVARRUBIAS M.D. CSN NUMBER: [id number] DATE OF SURGERY/PROCEDURE: 06/26/2021 INCISION/PROCEDURE START TIME: 12:58 p.m. INCISION CLOSE/PROCEDURE END TIME: 1:37 p.m. PREOPERATIVE DIAGNOSIS: Biliary colic. POSTOPERATIVE DIAGNOSIS: Biliary colic, intraoperative cholangiogram showed what was felt to be likely a small stone or air bubble which passed during the cholangiogram. SURGEON: Hillary Covarrubias M.D. MANAGER ACUTE: Ita Merchant CNP. SURGERY/PROCEDURE: Laparoscopic cholecystectomy with intraoperative cholangiogram. ANESTHESIA: General endotracheal. LOG ID: [id number]. ANESTHESIOLOGIST: Mando Pisano. ASA: 2. INTRAVENOUS FLUIDS: [...] removed through both port site. 0 PDS [id number] sutures placed in the umbilical port site [...] recovery stable condition. Ita Merchant was my assistant controller. She assisted in visualization, retraction, and performed subcuticular closure. There were no qualified surgeons or residents available. Hillary Covarrubias M.D. RG:[id number] /[id number] Normal [facility] SURGICAL PATHOLOGYon 022 SURGICAL PATHOLOGY Specimen originated from [facility] Specimen #: [id number] Submitting Physician: Hillary Covarrubias M.D. FINAL DIAGNOSIS [...] cm wall thickness. There is which was payable representative sections are submitted in cassette A1. SBP 06/26/2021 Gross examination performed at [facility], [address] [place] [address] Date of Report: 06/30/2021 Date of Procedure: 06/26/2021 Date of Receipt: 06/26/2021 Submitted by: Hillary Covarrubias M.D. Location: [facility] Diagnostic interpretation performed at [facility], [address] [place] [address]. CLIA Number: [id number] [facility] XR CHOLANGIOGRAM INTRAOPon 0 06-26-2021 XR [...] Area Product (DAP): Fluoro time: 0:29 min:sec Packager Or Packer And Weigher: PSCTorey Transcribe Date/Time: Jun 26 2021 3:24P Dictated by : Suzan GUERRA MD This examination was interpreted and the report reviewed and electronically signed by: Suzan GUERRA MD on Jun 26 2021 3:24PM EST [id number] CN [facility] Hepatitis Acute Panel * OUTS YARIEL CLIENTS ONLY *on 05-20-2021 Hep B Core Ab, IgM NEGAT Normal Negative [facility] Comment on above: Performed By: #### H ACUTP #### [facility] Routine Lab [address], [place] [address] Hepatitis A Ab IgM NEGAT Normal Negative [facility] Comment on above: Performed By: #### H ACUTP #### [facility] Routine Lab [address] [place], [place] [address] HBsAg NEGAT Normal Negative [facility] Comment on above: Performed By: #### H ACUTP #### [facility] Routine Lab [address] [place], [place] [address] Hepatitis C Ab [place] NEGAT Normal Negative [facility] Comment on above: Performed By: #### H ACUTP #### [facility] Routine Lab [address] [place], [place] [address] CT PULMONARY ARTERIESon 02-08 CT PULMONARY ARTERIES [...] Sat Mar 07, 2021 6:31:44 PM EDT [facility] Comment on above: Order Comment: Injur y/Trauma or Illness?:Illness/Other How long have you had these symptoms (acute/chronic)?:Acute Reason for exam?:Pulmonary embolism (PE) suspected, high prob, delivered baby 10/6, CP, SOB Type of Exam?:Initial Additional signs and symptoms?:Pulmonary embolism (PE) suspected, high prob, delivered baby 10/6, CP, SOB CULTURE URINEon 01-28-2021 CULTURE URINE CULTURE URINE --> Status: F Normal urogenital kerri present. Normal [facility] Comment on above: Performed By: #### C /UR ####[facility] [place] [address] Group B Strep Screen PCRon 0 01-28-2021 Group B Strep Screen PCR Group B Strep Screen PCR --> Status: F NEGATIVE Expected Result: Negative CDC guidelines for prevention of Group B Strep disease recommends collection of both vaginal and rectal specimens for optimal recovery of GBS. Methodology - Real Time PCR ([facility]) Expected Result: Negative CDC guidelines for prevention of Group B Strep disease recommends collection of both vaginal and rectal specimens for optimal recovery of GBS. Methodology - Real Time PCR ([facility]) Normal [facility] Comment on above: Performed By: #### G BSPC ####[facility] [place] [address] Chlamydia and GC PCR Panelon 01-27-2021 Chlamydia and GC PCR Panel Chlamydia trachomatis PCR --> Status: F NOT Detected Chlamydia trachomatis Nucleic Acid NOT Detected by DNA Amplification using the [employer] System. Culture is the only recommended test in medical-legal cases such as suspected child abuse or molestation. Chlamydia trachomatis Nucleic Acid NOT Detected by DNA Amplification using the [facility] System. Culture is the only recommended test in medical-legal cases such as suspected child abuse or molestation. Neisseria gonorrhoeae PCR --> Status: F NOT Detected Neisseria gonorrhoeae Nucleic Acid NOT Detected by DNA Amplification using the [employer] System. Culture is the only recommended test in medical-legal cases such as suspected child abuse or molestation. Neisseria gonorrhoeae Nucleic Acid NOT Detected by DNA Amplification using the [facility] System. Culture is the only recommended test in medical-legal cases such as suspected child abuse or molestation. Normal [facility] Comment on above: Performed By: #### C TNGP ####[facility] [place], [place] Comp Metabolic Panelon 01-27 ALP [Catalytic activity/Vol] 100 U/L Normal 38-126 [facility] Comment on above: Performed By: #### C MP3, HEMOG #### [facility] [address] [place], [place] ALT [Catalytic activity/Vol] 18 U/L Normal 0-34 [facility] Comment on above: Result Comment: The ALT test is performed by an updated assay method. Please note that the reference intervals have been changed and are now sex specific. Performed By: #### C MP3, HEMOG #### [facility] [address], [place] Calcium [Mass/Vol] 9.4 mg/dL Normal 8.4-10.4 [facility] Comment on above: Performed By: #### C MP3, HEMOG #### [facility] [address], [place] Glucose [Mass/Vol] 96 mg/dL Normal 70-100 [facility] Comment on above: Performed By: #### C MP3, HEMOG #### [facility] [address], [place] Urea nitrogen [Mass/Vol] 11 mg/dL Normal 9-20 [facility] Comment on above: Performed By: #### C MP3, HEMOG #### [facility] [address], [place] Anion gap [Moles/Vol] 10 mmol/L Normal 3-13 [facility] Comment on above: Performed By: #### C MP3, HEMOG #### [facility] [address], [place] AST [Catalytic activity/Vol] 30 U/L Normal 15-46 [facility] Comment on above: Performed By: #### C MP3, HEMOG #### [facility] [address], [place] Bilirubin [Mass/Vol] 0.4 mg/dL Normal 0.2-1.3 [facility] Comment on above: Performed By: #### C MP3, HEMOG #### [facility] [address], [place] CO2 [Moles/Vol] 19 mmol/L Low 22-30 [facility] Comment on above: Performed By: #### C MP3, HEMOG #### [facility] [address], [place] Creatinine [Mass/Vol] 0.47 mg/dL Low 0.52-1.25 [facility] Comment on above: Performed By: #### C MP3, HEMOG #### [facility] [address], [place] eGFR OTHER > 90.0 Normal >60 [facility] Comment on above: Result Comment: KDIG O [...] Performed By: #### C MP3, HEMOG #### [place] [address] [place] [address] GFR/1.73 sq M.predicted among blacks MDRD (S/P/Bld) [Vol rate/Area] mL/min/{1.73_m2} Normal >60 [facility] Comment on above: Performed By: #### C MP3, HEMOG #### [place] [address] [place] [address] Protein [Mass/Vol] 7.2 g/dL Normal 6.3-8.2 [facility] Comment on above: Performed By: #### C MP3, HEMOG #### [place] [address] [place] [address] Potassium [Moles/Vol] 3.7 mmol/L Normal 3.5-5.1 [facility] Comment on above: Performed By: #### C MP3, HEMOG #### [place] [address] [place] [address] Sodium [Moles/Vol] 136 mmol/L Normal 135-145 [facility] Comment on above: Performed By: #### C MP3, HEMOG #### [place] [address] [place] [address] Albumin [Mass/Vol] 4.0 g/dL Normal 3.5-5.0 [facility] Comment on above: Performed By: #### C MP3, HEMOG #### [place] [address] [place] [address] Chloride [Moles/Vol] 106 mmol/L Normal 98-107 [facility] Comment on above: Performed By: #### C MP3, HEMOG #### [place] [address] [place] [address] Creatinine, Ur Randomon 09-2 Creatinine, Ur Random 97.6 mg/dL Normal No Range [facility] Comment on above: Performed By: #### T PUR, CRTUR #### [place] [address] [place], [place] Hemogramon 01-27-2021 Erythrocyte distribution width (RBC) [Ratio] 13.4 % Normal 11.5-14.5 [facility] Comment on above: Performed By: #### C MP3, HEMOG #### [facility] [address], [place] Hematocrit (Bld) [Volume fraction] 35.6 % Normal 35.0-47.0 [facility] Comment on above: Performed By: #### C MP3, HEMOG #### [facility] [address] [place], [place] Hemoglobin (Bld) [Mass/Vol] 11.9 g/dL Normal 11.7-16.0 [facility] Comment on above: Performed By: #### C MP3, HEMOG #### [place] [address] [place], [place] MCH (RBC) [Entitic mass] 30.3 pg Normal 26.0-34.0 [facility] Comment on above: Performed By: #### C MP3, HEMOG #### [place] [address] [place], [place] MCHC 33.5 % Normal 32.0-36.0 [facility] Comment on above: Performed By: #### C MP3, HEMOG #### [facility] [address] [place], [place] MCV (RBC) [Entitic vol] 90.4 fL Normal 79.0-98.0 [facility] Comment on above: Performed By: #### C MP3, HEMOG #### [facility] [address] [place], [place] Platelet mean volume (Bld) [Entitic vol] 9.4 fL Normal 7.4-10.4 [facility] Comment on above: Performed By: #### C MP3, HEMOG #### [facility] [address] [place], [place] Platelets (Bld) [#/Vol] 248 10*3/uL Normal [phone] [facility] Comment on above: Performed By: #### C MP3, HEMOG #### [facility] [employer] [facility] [address], [place] RBC (Bld) [#/Vol] 3.93 10*6/uL Normal 3.80-5.20 [facility] Comment on above: Performed By: #### C MP3, HEMOG #### [facility] [employer] [facility] [address], [place] WBC (Bld) [#/Vol] 11.5 10*3/uL High 3.6-10.7 [facility] Comment on above: Performed By: #### C MP3, HEMOG #### [facility] [employer] [facility] [address], [place] MFM US Biophy w/o non- stresson 01-27-2021 MFM US Biophy w/o non-stress Patient Name: CLARISA DE LA CRUZ Maternal Medicine ACCESSION EXAM DATE/TIME PROCEDURE ORDERING PROVIDER [id number] 01/27/2021 08:57 EDT MFM US After DO DUNCAN ALESSANDRA 1st Trimester Reason For Exam (MFM US After 1st Trimester) HTN Report OBSTETRICS REPORT (Signed Final 01/27/2021 11:23 am) Patient Info ID #: [id number] : [birth year] (30 yrs) Name: CLARISA DE LA CRUZ Visit Date: 01/27/2021 09:00 am Performed By Attending: Lois Kerr Location: Inpatient- Hospital , PhD, FACOG Performed By: Mariann Logan [facility] Visit Type: Inpatient - Hospital Referred By: TIFFANIE DUNCAN Service(s) Provided US >= 14 weeks 02888 BPP w/out NST 89560 US Doppler umbilical art 37232 Indications Chronic hypertension, third trimester O10.913 Vital [...] 6d NIELS: 03/04/21 U/S Today: 32w 3d INELS: 03/21/21 Best: 34w 6d Det. By: Clinical [...] Ultrasound ACCESSION EXAM DATE/TIME PROCEDURE ORDERING PROVIDER [id number] 01/27/2021 08:57 EDT [facility] US After DO DUNCAN ALESSANDRA 1st Trimester Reason For Exam ([facility] US After 1st Trimester) HTN Report OBSTETRICS REPORT (Signed Final 01/27/2021 11:23 am) Patient Info ID #: [id number] : [birth year] (30 yrs) Name: CLARISA DE LA CRUZ Visit Date: 01/27/2021 09:00 am Performed By Attending: Lois Kerr Location: Inpatient- Hospital , PhD, FACOG Performed By: Mariann Logan RDMS Visit Type: Inpatient - Hospital Referred By: TIFFANIE DUNCAN Service(s) Provided US >= 14 weeks 75153 BPP w/out NST 75449 US Doppler umbilical art 36680 Indications Chronic hypertension, third trimester O10.913 Vital Signs Weight (lb): 198 Height: 5' (more content not included)... [facility] MFM US After 1st T rimesteron 01-27-2021 MFM US After 1st Trimester Patient Name: CLARISA DE LA CRUZ Maternal Medicine ACCESSION EXAM DATE/TIME PROCEDURE ORDERING PROVIDER [id number] 01/27/2021 08:57 EDT MFM US After DO DUNCAN ALESSANDRA 1st Trimester Reason For Exam (MFM US After 1st Trimester) [place] Report OBSTETRICS REPORT (Signed Final 01/27/2021 11:23 am) Patient Info ID #: [id number] : [birth year] (30 yrs) Name: CLARISA DE LA CRUZ Visit Date: 01/27/2021 09:00 am Performed By Attending: Lois Kerr Location: Inpatient- Hospital , PhD, FACOG Performed By: Mariann Logan RDMS Visit Type: Inpatient - Hospital Referred By: TIFFANIE DUNCAN Service(s) Provided US >= 14 weeks 43706 BPP w/out NST 26031 US Doppler umbilical art 35379 Indications Chronic hypertension, third trimester O10.913 Vital [...] Ultrasound ACCESSION EXAM DATE/TIME PROCEDURE ORDERING PROVIDER [id number] 01/27/2021 08:57 EDT [facility] US After LAMARI, DO TIFFANIE 1st Trimester Reason For Exam ([facility] US After 1st Trimester) CHTN Report OBSTETRICS REPORT (Signed Final 01/27/2021 11:23 am) Patient Info ID #: [id number] : [birth year] (30 yrs) Name: CLARISA DE LA CRUZ Visit Date: 01/27/2021 09:00 am Performed By Attending: Lois Kerr Location: Inpatient- Hospital MD, PhD, FACOG Performed By: Mariann Logan RDMS Visit Type: Inpatient - Hospital Referred By: TIFFANIE DUNCAN Service(s) Provided US >= 14 weeks 49745 BPP w/out NST 34162 US Doppler umbilical art 25900 Indications Chronic hypertension, third trimester O10.913 Vital Signs Weight (lb): 198 Height: (more content not included)... [facility] 01-27-2021 [facility] US Umbilical Artery Echo Patient Name: CLARISA DE LA CRUZ Maternal Medicine ACCESSION EXAM DATE/TIME PROCEDURE ORDERING PROVIDER [id number] 01/27/2021 08:59 EDT MFM US After DO ONEAL HANNAH 1st Trimester Reason For Exam (MFM US After 1st Trimester) iugr Report OBSTETRICS REPORT (Signed Final 01/27/2021 11:23 am) Patient Info ID #: [id number] : [birth year] (30 yrs) Name: CLARISA DE LA CRUZ Visit Date: 01/27/2021 09:00 am Performed By Attending: Lois Kerr Location: Inpatient- Hospital , PhD, FACOG Performed By: Mariann Logan RDMS Visit Type: Inpatient - Hospital Referred By: TIFFANIE DUNCAN Service(s) Provided US >= 14 weeks 16736 BPP w/out NST 63629 US Doppler umbilical art 02901 Indications Chronic hypertension, third trimester O10.913 Vital [...] Ultrasound ACCESSION EXAM DATE/TIME PROCEDURE ORDERING PROVIDER [id number] 01/27/2021 08:59 EDT M US After DO ONEAL HANNAH 1st Trimester Reason For Exam (M US After 1st Trimester) iugr Report OBSTETRICS REPORT (Signed Final 01/27/2021 11:23 am) Patient Info ID #: [id number] : [birth year] (30 yrs) Name: CLARISA DE LA CRUZ Visit Date: 01/27/2021 09:00 am Performed By Attending: Lois Kerr Location: Inpatient- Hospital , PhD, FACOG Performed By: Mariann Logan [facility] Visit Type: Inpatient - Hospital Referred By: TIFFANIE DUNCAN Service(s) Provided US >= 14 weeks 90673 BPP w/out NST 91905 US Doppler umbilical art 55332 Indications Chronic hypertension, third trimester O10.913 Vital Signs Weight (lb): 198 Height: 5'8 (more content not included)... Normal [facility] MRA Head w/o Contraston 01-08 MRA Head w/o Contrast Patient Name: CLARISA DE LA CRUZ Magnetic Resonance Imaging ACCESSION EXAM DATE/TIME PROCEDURE ORDERING PROVIDER [id number] 01/27/2021 21:34 EDT MRA Head w/o Contrast [id number] ZulyALY SAWYER CPT code 85943 Reason For Exam (MRA Head w/o Contrast) [...] the basilar or internal carotid arteries, the [place] or its major branches is identified. Neither posterior communicating artery is visualized compatible with normal variation. The anterior communicating artery is not visualized. There is no evidence for aneurysm or arteriovenous malformation. The distal vertebral arteries are patent and symmetric. IMPRESSION: 1. Normal variant incomplete [place]. 2. No significant vascular abnormality. [...] were obtained in multiple projections using 2-D [id number]-ku-nbgjnh maximum intensity projection and 3-D PSMRA imaging techniques. The sagittal, straight, sigmoid and transverse sinuses are widely patent. There is no evidence for deep venous thrombosis. IMPRESSION: No significant vascular abnormality. Report Dictated on Final Dictated: 01/28/2021 7:06 am Dictating Physician: MD LOZOYA HARLAN Signed Date and Time: 01/28/2021 7:33 am Signed by: MD LOZOYA HARLAN Transcribed Date and Time: 01/28/2021 7:06 Normal [facility] MRA Neck w/o Contraston 01-08 MRA Neck w/o Contrast Patient Name: CLARISA DE LA CRUZ Magnetic Resonance Imaging ACCESSION EXAM DATE/TIME PROCEDURE ORDERING PROVIDER [id number] 01/27/2021 21:34 EDT MRA Neck w/o Contrast [id number] ZulyGINARUBYMERVAT SAWYER CPT code 44789 Reason For Exam (MRA Neck w/o Contrast) [...] the basilar or internal carotid arteries, the [place] or its major branches is identified. Neither posterior communicating artery is visualized compatible with normal variation. The anterior communicating artery is not visualized. There is no evidence for aneurysm or arteriovenous malformation. The distal vertebral arteries are patent and symmetric. IMPRESSION: 1. Normal variant incomplete [place]. 2. No significant vascular abnormality. [...] were obtained in multiple projections using 2-D frdx-ch-fgqppj maximum intensity projection and 3-D PSMRA imaging techniques. The sagittal, straight, sigmoid and transverse sinuses are widely patent. There is no evidence for deep venous thrombosis. IMPRESSION: No significant vascular abnormality. Report Dictated on Final Dictated: 01/28/2021 7:06 am Dictating Physician: MD LOZOYA HARLAN Signed Date and Time: 01/28/2021 7:33 am Signed by: MD LOZOYA HARLAN Transcribed Date and Time: 01/28/2021 7:06 Normal [facility] MRI Brain w/o Contraston MRI Brain w/o Contrast Patient Name: CLARISA DE LA CRUZ Magnetic Resonance Imaging ACCESSION EXAM DATE/TIME PROCEDURE ORDERING PROVIDER [id number] 01/27/2021 21:34 EDT MRI Brain w/o Contrast SAWYER HORTA CPT code 64523 Reason For Exam (MRI Brain w/o Contrast) [...] the basilar or internal carotid arteries, the [place] or its major branches is identified. Neither posterior communicating artery is visualized compatible with normal variation. The anterior communicating artery is not visualized. There is no evidence for aneurysm or arteriovenous malformation. The distal vertebral arteries are patent and symmetric. IMPRESSION: 1. Normal variant incomplete [place]. 2. No significant vascular abnormality. [...] were obtained in multiple projections using 2-D grpw-uu-yzwwmx maximum intensity projection and 3-D PSMRA imaging techniques. The sagittal, straight, sigmoid and transverse sinuses are widely patent. There is no evidence for deep venous thrombosis. IMPRESSION: No significant vascular abnormality. Report Dictated on Final Dictated: 01/28/2021 7:06 am Dictating Physician: MD LOZOYA HARLAN Signed Date and Time: 01/28/2021 7:33 am Signed by: MD LOZOYA HARLAN Transcribed Date and Time: 01/28/2021 7:06 Normal [facility] MRV Headon 01-27-2021 MRV Head Patient Name[id number] Resonance Imaging ACCESSION EXAM DATE/TIME PROCEDURE ORDERING PROVIDER [id number] 01/27/2021 21:34 EDT MRV Head SAWYER HORTA CPT code 05590 Reason For Exam (MRV Head) Headache with [...] the basilar or internal carotid arteries, the [place] or its major branches is identified. Neither posterior communicating artery is visualized compatible with normal variation. The anterior communicating artery is not visualized. There is no evidence for aneurysm or arteriovenous malformation. The distal vertebral arteries are patent and symmetric. IMPRESSION: 1. Normal variant incomplete [place]. 2. No significant vascular abnormality. [...] were obtained in multiple projections using 2-D thgc-qq-vamffx maximum intensity projection and 3-D PSMRA imaging techniques. The sagittal, straight, sigmoid and transverse sinuses are widely patent. There is no evidence for deep venous thrombosis. IMPRESSION: No significant vascular abnormality. Report Dictated on Final Dictated: 01/28/2021 7:06 am Dictating Physician: MD LOZOYA HARLAN Signed Date and Time: 01/28/2021 7:33 am Signed by: MD LOZYOA HARLAN Transcribed Date and Time: 01/28/2021 7:06 Normal [facility] Protein, Ur Randomon 021 Protein, Ur Random 7 mg/dL Normal No Range [facility] Comment on above: Performed By: #### T PUR, CRTUR #### [facility] [address] [place] [id number] TS GELon 01-27-2021 TS GEL ABO Group: O Rh, Gel: POS Antibody Screen Gel: NEG Normal [facility] Comment on above: Performed By: #### T SGL #### [facility] Progress Noteon 12-03-2020 [employer] Authentication Interface Message Text This is a [...] topics are listed above. Nila Cole MD [facility] Progress Noteon 11-26-2020 [employer] Authentication Interface Message Text MFM Transfer line I was called by Dr. Elton Wilkins in [place] about this patient who was last seen [...] in the patient's chart. Lorena Patton MD [facility] Vital Signs Date Time Vital Sign Value Performing Clinician Facility 01-08-2025 13:52-0400 Body mass index (BMI) [Ratio] 29.16 kg/m2 Geovanna Avilez APRN.CNM Work Phone: [facility] 01-08-2025 13:52-0400 Body weight 85.73 kg Geovanna Avilez APRN.CNM Work Phone: [facility] 01-08-2025 13:52-0400 Diastolic blood pressure 80 mm[Hg] Geovanna Avilez APRN.CNM Work Phone: [facility] 01-08-2025 13:52-0400 Systolic blood pressure 124 mm[Hg] Geovanna Avilez APRN.CNM Work Phone: [facility] 10-22-2024 13:30-0400 Body mass index (BMI) [Ratio] 28.55 kg/m2 Geovanna Avilez APRN.CNM Work Phone: [facility] 10-22-2024 13:30-0400 Body weight 83.92 kg Geovanna Avilez APRN.CNM Work Phone: [facility] 10-22-2024 13:30-0400 Diastolic blood pressure 72 mm[Hg] Geovanna Avilez APRN.CNM Work Phone: [facility] 10-22-2024 13:30-0400 Systolic blood pressure 118 mm[Hg] Geovanna Avilez APRN.CNM Work Phone: [facility] 09-30-2024 15:00-0400 Body height 171.5 cm Jeniffer Styles APRN.TELETYPE OPERATOR Work Phone: [facility] 09-30-2024 15:00-0400 Body mass index (BMI) [Ratio] 28.55 kg/m2 Jeniffer Styles APRN.TELETYPE OPERATOR Work Phone: [facility] 09-30-2024 15:00-0400 Body temperature 98.29 [degF] Jeniffer Styles APRN.TELETYPE OPERATOR Work Phone: [facility] 09-30-2024 15:00-0400 Body weight 83.92 kg Jeniffer Styles APRN.TELETYPE OPERATOR Work Phone: [facility] 09-30-2024 15:00-0400 Diastolic blood pressure 80 mm[Hg] Jeniffer Styles APRN.TELETYPE OPERATOR Work Phone: [facility] 09-30-2024 15:00-0400 Heart rate 96 /min Jeniffer Styles APRN.TELETYPE OPERATOR Work Phone: [facility] 09-30-2024 15:00-0400 SaO2% (BldA) [Mass fraction] 98 % Jeniffer Styles APRN.TELETYPE OPERATOR Work Phone: [facility] 09-30-2024 15:00-0400 Systolic blood pressure 140 mm[Hg] Jeniffer Styles APRN.TELETYPE OPERATOR Work Phone: [facility] 01-16-2024 10:34-0400 Body mass index (BMI) [Ratio] 27.78 kg/m2 Tabby Krueger MD Work Phone: [facility] 01-16-2024 10:34-0400 Body weight 81.65 kg Tabby Krueger MD Work Phone: [facility] 01-16-2024 10:34-0400 Diastolic blood pressure 74 mm[Hg] Tabby Krueger MD Work Phone: [facility] 01-16-2024 10:34-0400 Systolic blood pressure 124 mm[Hg] Tabby Krueger MD Work Phone: [facility] 01-02-2024 13:33-0400 Body mass index (BMI) [Ratio] 27.78 kg/m2 Jen Dale MD Work Phone: [facility] 01-02-2024 13:33-0400 Body weight 81.65 kg Jen Dale MD Work Phone: [facility] 01-02-2024 13:33-0400 Diastolic blood pressure 86 mm[Hg] Jen Dale MD Work Phone: [facility] 01-02-2024 13:33-0400 Systolic blood pressure 136 mm[Hg] Jen Dale MD Work Phone: [facility] 12-05-2023 15:17-0400 Body mass index (BMI) [Ratio] 29.32 kg/m2 Geovanna Avilez APRN.CNM Work Phone: [facility] 12-05-2023 15:17-0400 Body weight 86.18 kg Geovanna Avilez BLACK LEATHER BUFFER.CNM Work Phone: [facility] 12-05-2023 15:17-0400 Diastolic blood pressure 86 mm[Hg] Geovanna Raghav BLACK LEATHER BUFFER.CNM Work Phone: [facility] 12-05-2023 15:17-0400 Systolic blood pressure 138 mm[Hg] Geovanna Avilez APRN.CNM Work Phone: [facility] 11-28-2023 11:09-0400 Body mass index (BMI) [Ratio] 31.17 kg/m2 Geovanna Avilez BLACK LEATHER BUFFER.CNM Work Phone: [facility] 11-28-2023 11:09-0400 Body weight 91.63 kg Geovanna Avilez BLACK LEATHER BUFFER.CNM Work Phone: [facility] 11-28-2023 11:09-0400 Diastolic blood pressure 77 mm[Hg] Geovanna Avilez BLACK LEATHER BUFFER.CNM Work Phone: [facility] 11-28-2023 11:09-0400 Systolic blood pressure 114 mm[Hg] Geovanna Avilez BLACK LEATHER BUFFER.CNM Work Phone: [facility] 11-25-2023 09:22-0400 Body mass index (BMI) [Ratio] 31.48 kg/m2 Jen Dale MD Work Phone: [facility] 11-25-2023 09:22-0400 Body weight 92.53 kg Jen Dale MD Work Phone: [facility] 11-25-2023 09:22-0400 Diastolic blood pressure 72 mm[Hg] Jen Dale MD Work Phone: [facility] 11-25-2023 09:22-0400 Systolic blood pressure 128 mm[Hg] Jen Dale MD Work Phone: [facility] 11-21-2023 13:27-0400 Body mass index (BMI) [Ratio] 31.48 kg/m2 Delmy Brasher MD Work Phone: [facility] 11-21-2023 13:27-0400 Body weight 92.53 kg Delmy Brasher MD Work Phone: [facility] 11-21-2023 13:27-0400 Diastolic blood pressure 72 mm[Hg] Delmy Brasher MD Work Phone: [facility] 11-21-2023 13:27-0400 Systolic blood pressure 108 mm[Hg] Delmy Brasher MD Work Phone: [facility] 11-18-2023 09:37-0400 Body mass index (BMI) [Ratio] 31.02 kg/m2 Geovanna Avilez BLACK LEATHER BUFFER.CNM Work Phone: [facility] 11-18-2023 09:37-0400 Body weight 91.17 kg Geovanna Avilez BLACK LEATHER BUFFER.CNM Work Phone: [facility] 11-18-2023 09:37-0400 Diastolic blood pressure 80 mm[Hg] Geovanna Avilez BLACK LEATHER BUFFER.CNM Work Phone: [facility] 11-18-2023 09:37-0400 Systolic blood pressure 126 mm[Hg] Geovanna Avilez BLACK LEATHER BUFFER.CNM Work Phone: [facility] 11-15-2023 13:27-0400 Body mass index (BMI) [Ratio] 31.29 kg/m2 Maximilian Valdovinos MD Work Phone: [facility] 11-15-2023 13:27-0400 Body weight 91.99 kg Maximilian Valdovinos MD Work Phone: [facility] 11-15-2023 13:27-0400 Diastolic blood pressure 80 mm[Hg] Maximilian Valdovinos MD Work Phone: [facility] 11-15-2023 13:27-0400 Systolic blood pressure 126 mm[Hg] Maximilian Valdovinos MD Work Phone: [facility] 11-11-2023 13:19-0400 Body mass index (BMI) [Ratio] 31.33 kg/m2 Maximilian Valdovinos MD Work Phone: [facility] 11-11-2023 13:19-0400 Body weight 92.08 kg Maximilian Valdovinos MD Work Phone: [facility] 11-11-2023 13:19-0400 Diastolic blood pressure 64 mm[Hg] Maximilian Valdovinos MD Work Phone: [facility] 11-11-2023 13:19-0400 Systolic blood pressure 112 mm[Hg] Maximilian Valdovinos MD Work Phone: [facility] 11-07-2023 09:41-0400 Body mass index (BMI) [Ratio] 31.33 kg/m2 Jen Dale MD Work Phone: [facility] 11-07-2023 09:41-0400 Body weight 92.08 kg Jen Dale MD Work Phone: [facility] 11-07-2023 09:41-0400 Diastolic blood pressure 78 mm[Hg] Jen Dale MD Work Phone: [facility] 11-07-2023 09:41-0400 Systolic blood pressure 118 mm[Hg] Jen Dale MD Work Phone: [facility] 11-04-2023 10:12-0400 Body mass index (BMI) [Ratio] 30.86 kg/m2 Tabby Krueger MD Work Phone: [facility] 11-04-2023 10:12-0400 Body weight 90.72 kg Tabby Krueger MD Work Phone: [facility] 11-04-2023 10:12-0400 Diastolic blood pressure 83 mm[Hg] Tabby Krueger MD Work Phone: [facility] 11-04-2023 10:12-0400 Systolic blood pressure 125 mm[Hg] Tabby Krueger MD Work Phone: [facility] 11-01-2023 10:36-0400 Body mass index (BMI) [Ratio] 30.89 kg/m2 Maximilian Valdovinos MD Work Phone: [facility] 11-01-2023 10:36-0400 Body weight 90.81 kg Maximilian Valdovinos MD Work Phone: [facility] 11-01-2023 10:36-0400 Diastolic blood pressure 60 mm[Hg] Maximilian Valdovinos MD Work Phone: [facility] 11-01-2023 10:36-0400 Systolic blood pressure 100 mm[Hg] Maximilian Valdovinos MD Work Phone: [facility] 10-26-2023 09:47-0400 Body mass index (BMI) [Ratio] 30.71 kg/m2 Jen Dale MD Work Phone: [facility] 10-26-2023 09:47-0400 Body weight 90.27 kg Jen Dale MD Work Phone: [facility] 10-26-2023 09:47-0400 Diastolic blood pressure 82 mm[Hg] Jen Dale MD Work Phone: [facility] 10-26-2023 09:47-0400 Systolic blood pressure 134 mm[Hg] Jen Dale MD Work Phone: [facility] 10-25-2023 14:51-0400 Body mass index (BMI) [Ratio] 30.74 kg/m2 Seferino Medina MD Work Phone: [facility] 10-25-2023 14:51-0400 Body weight 90.36 kg Seferino Medina MD Work Phone: [facility] 10-25-2023 14:51-0400 Diastolic blood pressure 78 mm[Hg] Seferino Medina MD Work Phone: [facility] 10-25-2023 14:51-0400 Systolic blood pressure 138 mm[Hg] Seferino Medina MD Work Phone: [facility] 10-21-2023 08:31-0400 Body mass index (BMI) [Ratio] 30.49 kg/m2 Maximilian Valdovinos MD Work Phone: [facility] 10-21-2023 08:31-0400 Body weight 89.63 kg Maximilian Valdovinos MD Work Phone: [facility] 10-21-2023 08:31-0400 Diastolic blood pressure 69 mm[Hg] Maximilian Valdovinos MD Work Phone: [facility] 10-21-2023 08:31-0400 Systolic blood pressure 109 mm[Hg] Maximilian Valdovinos MD Work Phone: [facility] 10-18-2023 09:29-0400 Body mass index (BMI) [Ratio] 30.34 kg/m2 Maximilian Valdovinos MD Work Phone: [facility] 10-18-2023 09:29-0400 Body weight 89.18 kg Maximilian Valdovinos MD Work Phone: [facility] 10-18-2023 09:29-0400 Diastolic blood pressure 72 mm[Hg] Maximilian Valdovinos MD Work Phone: [facility] 10-18-2023 09:29-0400 Systolic blood pressure 118 mm[Hg] Maximilian Valdovinos MD Work Phone: [facility] 10-14-2023 10:33-0400 Diastolic blood pressure 82 mm[Hg] Jen Dale MD Work Phone: [facility] 10-14-2023 10:33-0400 Systolic blood pressure 126 mm[Hg] Jen Dale MD Work Phone: [facility] 10-11-2023 10:56-0400 Body mass index (BMI) [Ratio] 30.09 kg/m2 Jasmina Collazo MD Work Phone: [facility] 10-11-2023 10:56-0400 Body weight 88.45 kg Jasmina Collazo MD Work Phone: [facility] 10-11-2023 10:56-0400 Diastolic blood pressure 82 mm[Hg] Jasmina Collazo MD Work Phone: [facility] 10-11-2023 10:56-0400 Systolic blood pressure 124 mm[Hg] Jasmina Collazo MD Work Phone: [facility] 09-14-2023 16:19-0400 Body mass index (BMI) [Ratio] 29.01 kg/m2 Tabby Krueger MD Work Phone: [facility] 09-14-2023 16:19-0400 Body weight 85.28 kg Tabby Krueger MD Work Phone: [facility] 09-14-2023 16:19-0400 Diastolic blood pressure 74 mm[Hg] Tabby Krueger MD Work Phone: [facility] 09-14-2023 16:19-0400 Systolic blood pressure 122 mm[Hg] Tabby Krueger MD Work Phone: [facility] 09-14-2023 15:22-0400 Diastolic blood pressure 79 mm[Hg] [facility] 09-14-2023 15:22-0400 Heart rate 85 /min [facility] 09-14-2023 15:22-0400 Systolic blood pressure 130 mm[Hg] [facility] 09-14-2023 15:18-0400 SaO2% (BldA) [Mass fraction] 98 % [facility] 09-14-2023 15:12-0400 Body temperature 98.5 [degF] [facility] 09-14-2023 15:12-0400 Respiratory rate 15 /min [facility] 09-14-2023 15:01-0400 Body height 172.72 cm [facility] 09-14-2023 15:01-0400 Body mass index (BMI) [Ratio] 28.7 kg/m2 [facility] 09-14-2023 15:01-0400 Body weight 85.72 kg [facility] 09-07-2023 16:06-0400 Body mass index (BMI) [Ratio] 29.01 kg/m2 Jen Dale MD Work Phone: [facility] 09-07-2023 16:06-0400 Body weight 85.28 kg Jen Dale MD Work Phone: [facility] 09-07-2023 16:06-0400 Diastolic blood pressure 74 mm[Hg] Jen Dale MD Work Phone: [facility] 09-07-2023 16:06-0400 Systolic blood pressure 124 mm[Hg] Jen Dale MD Work Phone: [facility] 08-16-2023 07:57-0400 Body weight 84.01 kg Jasmina Collazo MD Work Phone: [facility] 08-16-2023 07:57-0400 Diastolic blood pressure 80 mm[Hg] Jasmina Collazo MD Work Phone: [facility] 08-16-2023 07:57-0400 Systolic blood pressure 134 mm[Hg] Jasmnia Collazo MD Work Phone: [facility] 08-02-2023 10:51-0400 Body height 171.5 cm Sneha Mikula BLACK LEATHER BUFFER.TELETYPE OPERATOR Work Phone: [facility] 08-02-2023 10:51-0400 Body weight 84.82 kg Sneha Mikula BLACK LEATHER BUFFER.TELETYPE OPERATOR Work Phone: [facility] 08-02-2023 10:51-0400 Diastolic blood pressure 76 mm[Hg] Sneha Mikula BLACK LEATHER BUFFER.TELETYPE OPERATOR Work Phone: [facility] 08-02-2023 10:51-0400 Heart rate 81 /min Sneha Mikula BLACK LEATHER BUFFER.TELETYPE OPERATOR Work Phone: [facility] 08-02-2023 10:51-0400 Systolic blood pressure 109 mm[Hg] Sneha Mikula BLACK LEATHER BUFFER.TELETYPE OPERATOR Work Phone: [facility] 07-25-2023 15:35-0400 Body weight 84.19 kg Geovanna Avilez BLACK LEATHER BUFFER.CNM Work Phone: [facility] 07-25-2023 15:35-0400 Diastolic blood pressure 80 mm[Hg] Geovanna Avilez BLACK LEATHER BUFFER.CNM Work Phone: [facility] 07-25-2023 15:35-0400 Systolic blood pressure 118 mm[Hg] Geovanna Avilez BLACK LEATHER BUFFER.CNM Work Phone: [facility] 07-13-2023 15:36-0500 Body weight 83.92 kg Ivett Hatopher BLACK LEATHER BUFFER.TELETYPE OPERATOR Work Phone: [facility] 07-13-2023 15:36-0500 Diastolic blood pressure 70 mm[Hg] Ivett Haury BLACK LEATHER BUFFER.TELETYPE OPERATOR Work Phone: [facility] 07-13-2023 15:36-0500 Systolic blood pressure 114 mm[Hg] Ivett Palomo BLACK LEATHER BUFFER.TELETYPE OPERATOR Work Phone: [facility] 07-01-2023 14:40-0500 Body height 171.5 cm Ivett Palomo BLACK LEATHER BUFFER.TELETYPE OPERATOR Work Phone: [facility] 07-01-2023 14:40-0500 Body weight 82.64 kg Ivett Palomo BLACK LEATHER BUFFER.TELETYPE OPERATOR Work Phone: [facility] 05-06-2023 13:53-0500 Body height 172.7 cm Jean Govea BLACK LEATHER BUFFER-TELETYPE OPERATOR Work Phone: [facility] 05-06-2023 13:53-0500 Body mass index (BMI) [Ratio] 27.69 kg/m2 Jean Govea BLACK LEATHER BUFFER-TELETYPE OPERATOR Work Phone: [facility] 05-06-2023 13:53-0500 Body weight 82.6 kg Jean Govea BLACK LEATHER BUFFER-TELETYPE OPERATOR Work Phone: [facility] 05-06-2023 13:53-0500 Diastolic blood pressure 75 mm[Hg] Jean Govea BLACK LEATHER BUFFER-TELETYPE OPERATOR Work Phone: [facility] 05-06-2023 13:53-0500 Systolic blood pressure 112 mm[Hg] Jean Govea BLACK LEATHER BUFFER-TELETYPE OPERATOR Work Phone: [facility] 04-24-2023 08:11-0500 Body temperature 98.29 [degF] Julio Bunn MD Work Phone: [facility] 04-24-2023 08:11-0500 Diastolic blood pressure 74 mm[Hg] Julio Bunn MD Work Phone: [facility] 04-24-2023 08:11-0500 Heart rate 83 /min Julio Bunn MD Work Phone: [facility] 04-24-2023 08:11-0500 Respiratory rate 16 /min Julio Bunn MD Work Phone: [facility] 04-24-2023 08:11-0500 SaO2% (BldA) [Mass fraction] 97 % Julio Bunn MD Work Phone: [facility] 04-24-2023 08:11-0500 Systolic blood pressure 141 mm[Hg] Julio Bunn MD Work Phone: [phone] [address] 04-23-2023 22:56-0500 Body mass index (BMI) [Ratio] 27.67 kg/m2 Julio Bunn MD Work Phone: [phone] [place] [address] 04-23-2023 22:56-0500 Body weight 82.56 kg Julio Bunn MD Work Phone: [phone] [place] [address] 04-23-2023 16:32-0500 Body height 172.7 cm Julio Bunn MD Work Phone: [facility] 06-05-2022 08:16-0500 Body temperature 97.59 [degF] Krislyn Aberegg PA Work Phone: [facility] 06-05-2022 08:16-0500 Body weight 80.29 kg Krislyn Aberegg PA Work Phone: [facility] 06-05-2022 08:16-0500 Diastolic blood pressure 80 mm[Hg] Krislyn Aberegg PA Work Phone: [facility] 06-05-2022 08:16-0500 Heart rate 74 /min Krislyn Aberegg PA Work Phone: [facility] 06-05-2022 08:16-0500 Respiratory rate 16 /min Krislyn Aberegg PA Work Phone: [facility] 06-05-2022 08:16-0500 SaO2% (BldA) [Mass fraction] 98 % Krislyn Aberegg PA Work Phone: [facility] 06-05-2022 08:16-0500 Systolic blood pressure 130 mm[Hg] David WHITE Work Phone: [facility] Encounters Encounter Date Encounter Type Care Provider Facility Start: 04-25-2025 ambulatory Tabby Krueger [facility] Start: 02-07-2025 End: 02-07-2025 ambulatory TABBY KRUEGER Facility:[facility] Start: 01-08-2025 End: 01-08-2025 Patient encounter procedure Geovanna Avilez APRN.CNM Work Phone: OB/Gynecology Comment on above: Abnormal uterine ble eding (AUB) (Primary Dx); Adenomyosis of uterus; Irregular menstruation Start: 01-08-2025 End: 01-08-2025 ambulatory GEOVANNA AVILEZ Facility:[facility] Start: 12-25-2024 End: 12-25-2024 Telephone encounter Geovanna [...] Mob OB/Gynecology Start: 10-26-2024 End: 10-26-2024 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 Work Phone: OB/Gynecology Start: 10-23-2024 End: 12-23-2024 Follow-up encounter Geovanna Avilez APRN.CNM Work Phone: OB/Gynecology Start: 10-22-2024 End: 10-22-2024 Patient encounter procedure Geovanna Avilez APRN.CNM Work Phone: OB/Gynecology Comment on above: Abnormal uterine ble eding (AUB) (Primary Dx); Dysmenorrhea Start: 10-22-2024 End: 10-22-2024 ambulatory GEOVANNA RAGHAV Facility:[facility] Start: 09-30-2024 End: 09-30-2024 Patient encounter procedure Jeniffer King TIRSO.TELETYPE OPERATOR Work Phone: [facility] Comment on above: Sinobronchitis (Prim lauro Dx) Start: 09-30-2024 End: 09-30-2024 ambulatory SELF Facility:[facility] Start: 06-27-2024 End: 06-28-2024 Emergency department patient visit Ottonieljohn Encarnacion Facility:[facility] Start: 04-09-[address] [facility] Start: 02-16-2024 End: 02-16-2024 Orders Only Sneha Cardenas APRN.TELETYPE OPERATOR Work Phone: NEUROLOGY Comment on above: TIA (transient ische dafne attack) (Primary Dx) Start: 01-16-2024 End: 01-16-2024 Patient encounter procedure Tabby Krueger MD Work Phone: OB/Gynecology Comment on above: care and examination (Primary Dx); Encounter for screening for malignant neoplasm of cervix Start: 01-10-2024 End: 01-10-2024 ambulatory Silvestre Mina APRN.TELETYPE OPERATOR Work Phone: Neurology Headache [facility] Comment on above: Migraine with aura a nd without status migrainosus, not intractable Start: 01-10-2024 End: 01-10-2024 Telemedicine consultation with patient Silvestre Mina APRN.TELETYPE OPERATOR Work Phone: Neurology Headache [facility] Start: 01-02-2024 End: 01-02-2024 Patient [...] Start: 11-28-2023 End: 11-28-2023 Patient encounter procedure Mechanical [facility] Work Phone: OB/Gynecology Comment on above: [...] Molina Damon MD Work Phone: Neurology Headache [facility] Comment on above: Migraine with [...] hypertension affecting Start: 09-14-2023 End: 09-14-2023 ambulatory [facility] Work Phone: Start: 09-14-2023 End: 09-14-2023 Patient encounter procedure [facility] Work Phone: Start: 09-14-2023 Telephone [...] above: Referral Information Start: 08-26-2023 ambulatory Sneha HARP.TELETYPE OPERATOR Work Phone: NEUROLOGY Comment on above: Imaging review Start: 08-26-2023 E-mail encounter fro m caregiver Sneha Cardenas APRN.TELETYPE OPERATOR Work Phone: [facility] Start: 08-18-2023 ambulatory Jen Dale MD Work [...] E-mail encounter fro m caregiver Sneha Cardenas APRN.TELETYPE OPERATOR Work Phone: [facility] Start: 08-09-2023 Follow-up encounter Sneha boswell APRN.TELETYPE OPERATOR Work Phone: Cerebrovascular Comment on above: Follow-up from last week's visit Start: 08-02-2023 End: 08-02-2023 ambulatory OTTONIEL ENCARNACION Facility:[facility] Start: 08-02-2023 End: 08-02-2023 Patient encounter procedure Sneha Cardenas APRN.TELETYPE OPERATOR Work Phone: Cerebrovascular Comment on above: Migraine [...] on above: Appointment Start: 07-21-2023 ambulatory Ivett TEIXEIRA RN.WILDER Work Phone: OB/Gynecology Comment on above: Blood [...] Start: 06-11-2023 End: 06-11-2023 ambulatory OTTONIEL SHELBY Facility:[facility] Start: 05-23-2023 End: 05-24-2023 ambulatory SHASHANK BALLC~[phone] Facility:[facility] Start: 05-11-2023 End: 05-11-2023 ambulatory NONE NONE Facility:[facility] Start: 05-11-2023 End: 05-11-2023 ambulatory NONE NONE Facility:[facility] Start: 05-06-2023 ambulatory [facility] Facility:[facility] Start: 05-06-2023 End: 05-06-2023 Subsequent hospital visit by physician Jean MATT Work Phone: [facility] Start: 04-23-2023 End: 04-24-2023 ambulatory NEUROLOGY-STROKE ALERT CONSULT Facility:[facility] Start: 04-23-2023 End: 04-24-2023 Emergency department patient visit Julio Bunn MD Work Phone: [facility] Start: 04-23-2023 End: 04-23-2023 ambulatory Clint [phone] Richie [phone] Facility:[facility] Start: 03-17-2023 End: 03-18-2023 ambulatory OTTONIEL SHELBY Facility:[facility] Start: 06-05-2022 End: 06-05-2022 Patient encounter procedure David WHITE Work Phone: [facility] Comment on above: Acute otitis externa of right ear, unspecified type (Primary Dx); Bacterial sinusitis Start: 04-05-2022 End: 04-05-2022 ambulatory [facility] Work Phone: Start: 04-05-2022 End: 04-05-2022 Patient encounter procedure [facility]-Laboratory, Specimen Start: 10-08-2021 Telephone encounter [place] John Glen morillo DO Work Phone: Hematology/Oncology Comment on above: Patient Question; Pa tient Update Start: 03-07-2021 End: 03-07-2021 Emergency department patient visit OTTONIEL CORMIER [facility] Procedures Date Procedure Procedure Detail Performing Clinician [...] after 1st trimest 05/09 gestation Ivett Palomo APRN.TELETYPE OPERATOR Work Phone: Start: 07-25-2023 URINE OB DIP B/O Ivett Palomo APRN.TELETYPE OPERATOR Work Phone: Start: 07-01-2023 URINE OB DIP B/O Ivett Palomo APRN.TELETYPE OPERATOR Work Phone: Start: 07-01-2023 End: 12-02-2023 H/O: section History of section Ivett Palomo APRN.TELETYPE OPERATOR Work Phone: Start: 07-01-2023 Adult depression screening assessment Sneha Cardenas BLACK LEATHER BUFFER.TELETYPE OPERATOR Work Phone: Start: 05-06-2023 Echo tthrc r-t 2d w/wom-mode compl spec&colr d Jean Govea BLACK LEATHER BUFFER-TELETYPE OPERATOR Work Phone: Start: 04-24-2023 Creatinine blood Julio [...] Hemoglobin glycosyla solo a1c Danilo Lema Fasoro BLACK LEATHER BUFFER-TELETYPE OPERATOR Work Phone: Start: 04-23-2023 Lipid panel Danilo Lema Fa soro BLACK LEATHER BUFFER-TELETYPE OPERATOR Work Phone: Start: 04-23-2023 LT BLUE TOP TUBE Julio Bunn MD Work Phone: H/O: section History of section Jasmina Collazo MD Work Phone: H/O: section S/P sectio n Geovanna Avilez APRN.CNM Work Phone: H/O: section History of section Geovanna Avilez APRN.CNM Work Phone: Plan of Treatment Date Care Activity Detail Author Start: 10-10-2033 Urine microalbumin profile DTaP,Tdap,Td Vaccine (3 - Td or Tdap) [facility] Start: 12-19-2030 Tetanus vaccination TETANUS [facility] Start: 12-19-2030 Urine microalbumin profile DTaP,Tdap,Td Vaccine (2 - Td or Tdap) [facility] Start: 01-15-2029 Screening for malignant neoplasm of cervix Cervical Cancer Screening [facility] Start: 04-01-2025 End: 04-01-2025 Patient encounter procedure 04/01/2025 2:20 PM EST Office Visit OB/Gynecology [address] [place] [address] Tabby Krueger MD [address] [place] [address] (Fax) Annual / r/s from 11-20 OB/Gynecology Comment on above: Annual / r/s from 11-20 Start: 01-08-2025 End: 01-08-2025 Patient encounter procedure 01/08/2025 1:50 PM EDT Office Visit OB/Gynecology [address] [place] [address] Geovanna Avilez APRN.CNM [address] [place] [address] (Fax) EMB and discuss options - time per [facility] OB/Gynecology Comment on above: EMB and discuss options - time per [facility] Start: 01-07-2025 Influenza vaccination [facility] Start: 11-20-2024 End: 11-20-2024 Patient encounter procedure 11/20/2024 2:20 PM EDT Office Visit OB/Gynecology [address] [place] [address] Tabby Krueger MD [address] [place] [address] (Fax) Annual OB/Gynecology Comment on above: Annual Start: 11-05-2024 End: 11-05-2024 ambulatory 11/05/2024 11:30 AM EDT [facility] OB/Gynecology [address] [place] [address] Geovanna Avilez APRN.CNM [address] [place] [address] (Fax) Discuss U/S results-Ok per [facility] OB/Gynecology Comment on above: Discuss U/S results-Ok per [facility] Start: 10-26-2024 End: 10-26-2024 ambulatory 10/26/2024 11:00 AM EDT Procedure OB/Gynecology [address] [place] [address] Remote, Mechanical Adjuster [employer] [facility] [address] [place] [address] Abnormal uterine bleeding (AUB) [N93.9]; Dysmenorrhea [N94.6] OB/Gynecology Comment on above: Abnormal uterine bleeding (AUB) [N93.9]; Dysmenorrhea [N94.6] Start: 10-22-2024 End: 01-21-2025 Thyrotropin [Units/volume] in Serum or Plasma [facility] Comment on above: Expected: 10/22/2024, Expires: Start: 10-22-2024 End: 01-21-2025 Thyroxine (T4) free [Mass/volume] in Serum or Plasma [facility] Comment on above: Expected: 10/22/2024, Expires: 5 Start: 10-22-2024 End: 10-22-2025 US Pelvis PELVIC US [facility] Anc Imaging Routine Abnormal uterine bleeding (AUB) Dysmenorrhea Expected: 10/22/2024, Expires: 10/22/2025 [facility] Work Phone: Comment on above: Expected: 10/22/2024, Expires: 6 Start: 10-03-2024 End: 10-03-2024 Patient encounter procedure 10/03/2024 9:30 AM EDT Office Visit OB/Gynecology [address] [place] [id number] Geovanna Avilez APRN.CN [address] [place] [address] irregular bleeding OB/Gynecology Comment on above: irregular bleeding Start: 07-01-2024 Anxiety Screening Anxiety Screening [facility] Start: 07-01-2024 Depression Screening Depression Screening [facility] Start: 02-23-2024 End: 05-24-2024 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 [Identifier] in Blood or Tissue by Molecular genetics method Nominal PROTHROMBIN GENE PCR Lab Routine TIA (transient ischemic attack) Expected: 02/23/2024 (Approximate), Expires: 05/24/2024 [facility] Comment on above: Expected: 02/23/2024 (Approximate), Expi res: 05/24/2024 Start: 02-23-2024 End: 05-24-[address] Lab Routine TIA (transient ischemic attack) Expected: 02/23/2024 (Approximate), Expires: 05/24/2024 [facility] Work Phone: Comment on above: Expected: 02/23/2024 (Approximate), Expi res: 05/24/2024 Start: 01-16-2024 End: 01-16-2024 Patient encounter procedure 01/16/2024 10:40 AM EDT Office Visit OB/Gynecology [address] [place] [address] Tabby Krueger MD [address] [place], [place] [address] Post OB/Gynecology Comment on above: Post Start: 01-10-2024 End: 01-10-2024 ambulatory 01/10/2024 7:00 AM EDT [facility] Neurology Headache [facility] [address] [place] [address] Silvestre Mina, BLACK LEATHER BUFFER.TELETYPE OPERATOR [address] [place] [address] Neurology Headache [facility] Start: 01-08-2024 Covid-19 Vaccine () Covid-19 Vaccine () [facility] Start: 01-08-2024 Covid-19 Vaccine () Covid-19 Vaccine () [facility] Start: 01-08-2024 Influenza vaccination [facility] Start: 01-02-2024 End: 01-02-2024 Patient encounter procedure 01/02/2024 1:40 PM EDT Office Visit OB/Gynecology [address] [place] [address] Jen Arredondo MD [address] [place] [address] Incision check OB/Gynecology Comment on above: Incision check Start: 12-20-2023 End: 12-20-2023 Patient encounter procedure OB/Gynecology Comment on above: NST NST/OB Start: 12-19-2023 End: 12-19-2023 Patient encounter procedure OB/Gynecology Comment on above: BPP/OB Start: 12-16-2023 End: 12-16-2023 Patient encounter procedure 12/16/2023 3:10 PM EDT Routine Office Visit OB/Gynecology [address] [place] [address] Delmy Brasher MD [address] [place] [address] NST only OB/Gynecology Comment on above: NST only Start: 12-16-2023 End: 12-16-2023 Patient encounter procedure OB/Gynecology Comment on above: NST only Start: 12-13-2023 End: 12-13-2023 Patient encounter procedure OB/Gynecology Comment on above: NST NST/OB Start: 12-12-2023 End: 12-12-2023 Patient encounter procedure OB/Gynecology Comment on above: BPP/OB Start: 12-09-2023 End: 03-09-2024 Bacteria identified in Urine by Culture [facility] Work Phone: Comment on above: Expected: 12/09/2023, Expires: Start: 12-09-2023 End: 03-09-2024 Urinalysis complete panel - Urine [facility] Comment on above: Expected: 12/09/2023, Expires: Start: 12-09-2023 End: 12-09-2023 Patient encounter procedure 12/09/2023 10:50 AM EDT Routine Office Visit OB/Gynecology [address] [place] [address] Jen Arredondo MD [address] [place] [address] OB - Pre Op C/S 12/21 @ [facility] OB/Gynecology Comment on above: OB - Pre Op C/S 12/21 @ [facility] Start: 12-09-2023 End: 12-09-2023 Patient encounter procedure 12/09/2023 9:30 AM EDT Routine Office Visit OB/Gynecology [address] [place] [address] NST only OB/Gynecology Comment on above: NST only Start: 12-08-2023 End: 12-08-2023 Patient encounter procedure 12/08/2023 1:40 PM EDT Routine Office Visit OB/Gynecology [address] [place] [address] Jen Arredondo MD [address] [place] [address] OB - Pre Op C/S 12/21 @ [facility] OB/Gynecology Comment on above: OB - Pre Op C/S 12/21 @ [facility] Start: 12-06-2023 End: 12-06-2023 Patient encounter procedure OB/Gynecology Comment on above: NST NST/OB Start: 12-05-2023 End: 12-05-2023 Patient encounter procedure 12/05/2023 11:40 AM EDT Routine Office Visit OB/Gynecology [address] [place] [address] Norris Song MD [address] [place] [address] BPP/OB OB/Gynecology Comment on above: BPP/OB Start: [...] ambulatory 10/25/2023 7:00 PM EDT [facility] Neurology Headache [facility] [address] [place] [address] [place] [address] [place] [address] The migraines I am having. Neurology Headache [facility] Comment on above: The migraines [...] ambulatory 10/11/2023 10:45 AM EDT Results Only [facility] [address] [place] [address] [facility] Comment on above: Lab Start: 09-14-2023 Nonstress test [facility] Start: 09-14-2023 Obstetric monitoring [facility] Start: 09-14-2023 Vital signs measurements [facility] Start: 09-14-2023 [facility] Start: 09-14-2023 Patient discharge [facility] Start: 09-07-2023 End: 12-07-2023 CBC panel - Blood by Automated count COMPLETE BLOOD COUNT Lab Routine 23 weeks gestation of Encounter for supervision of high risk in second trimester, antepartum Chronic hypertension affecting POTS (postural orthostatic tachycardia syndrome) Expected: 09/07/2023, Expires: 12/07/2023 [facility] Work Phone: Comment on above: Expected: 09/07/2023, Expires: Start: 09-07-2023 End: 12-07-2023 GESTATIONAL GLUCOSE SCREEN, 1-HOUR, 50 GRAM, NON-FASTING GESTATIONAL GLUCOSE SCREEN, 1-HOUR, 50 GRAM, NON-FASTING Lab Routine 23 weeks gestation of Encounter for supervision of high risk in second trimester, antepartum Chronic hypertension affecting POTS (postural orthostatic tachycardia syndrome) Expected: 09/07/2023, Expires: 12/07/2023 [facility] Comment on above: Expected: 09/07/2023, Expires: Start: 09-07-2023 End: 12-07-2023 SYPHILIS TOTAL W/REFLEX SYPHILIS TOTAL W/REFLEX Lab Routine 23 weeks gestation of Encounter for supervision of high risk in second trimester, antepartum Chronic hypertension affecting POTS (postural orthostatic tachycardia syndrome) Expected: 09/07/2023, Expires: 12/07/2023 [facility] Comment on above: Expected: 09/07/2023, Expires: Start: 08-09-2023 End: 11-08-2023 B 2 GPI IGG & IGM B 2 GPI IGG & IGM Lab Routine TIA (transient ischemic attack) Expected: 08/09/2023, Expires: 11/08/2023 [facility] Work Phone: Comment on above: Expected: 08/09/2023, Expires: Start: 08-09-2023 End: 11-08-2023 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 [Identifier] in Blood or Tissue by Molecular genetics method Nominal PROTHROMBIN GENE PCR Lab Routine TIA (transient ischemic attack) Expected: 08/09/2023, Expires: 11/08/2023 [facility] Work Phone: Comment on above: Expected: 08/09/2023, Expires: Start: 08-09-2023 End: 11-08-[address] Lab Routine TIA (transient ischemic attack) Expected: 08/09/2023, Expires: 11/08/2023 [facility] Work Phone: Comment on above: Expected: 08/09/2023, Expires: 4 Start: 08-09-2023 End: 11-08-2023 YOLANDA-1 GENOTYPE 5G/4G YOLANDA-1 GENOTYPE 5G/4G Lab Routine TIA (transient ischemic attack) Expected: 08/09/2023, Expires: 11/08/2023 [facility] Work Phone: Comment on above: Expected: 08/09/2023, Expires: 4 Start: 07-01-2023 End: 07-01-2024 NUCHAL TRANSLUCENCY WHI NUCHAL TRANSLUCENCY WHI Anc Imaging Routine Encounter for supervision of high risk in second trimester, antepartum Expected: 07/01/2023, Expires: 07/01/2024 [facility] Work Phone: Comment on above: Expected: 07/01/2023, Expires: 5 Start: 07-01-2023 End: 07-01-2024 OBSTETRIC ULTRASOUND WHI OBSTETRIC ULTRASOUND WHI Anc Imaging Routine Encounter for supervision of high risk in second trimester, antepartum 13 weeks gestation of Expected: 07/01/2023, Expires: 07/01/2024 [facility] Work Phone: Comment on above: Expected: 07/01/2023, Expires: 5 Start: 06-06-2023 End: 06-06-2023 Patient encounter procedure 06/06/2023 9:00 AM EST [facility] [address] [place] [address] [address] [place] [address] Allen Marin Jr., MD [address] [place] [id number] [facility] Start: 05-25-2023 Hepatitis B vaccination HEP B VACCINE (3 of 3 - 19+ 3-dose series) [facility] Start: 05-25-2023 Hepatitis B Vaccine (3 of 3 - 19+ 3-dose series) Hepatitis B Vaccine (3 of 3 - 19+ 3-dose series) [facility] Start: 05-09-2023 Behavioral Health Screening Behavioral Health Screening [facility] Start: 05-09-2023 Depression Assessment Depression Assessment [facility] Start: 04-25-2023 End: 06-25-2023 Echocardiography ECHOCARDIOGRAM Echocardiography Routine TIA (transient ischemic attack) Expected: 04/25/2023, Expires: 06/25/2023 [facility] Comment on above: Expected: 04/25/2023, Expires: Start: 01-07-2023 COVID-19 VACCINE () COVID-19 VACCINE () [facility] Start: 01-07-2023 Covid-19 Vaccine () Covid-19 Vaccine () [facility] Start: 01-07-2023 Influenza vaccination INFLUENZA VACCINE (#1) [facility] Start: 05-09-2022 DEPRESSION ASSESSMENT DEPRESSION ASSESSMENT [facility] Start: 01-07-2022 Influenza vaccination [facility] Start: 06-23-2021 COVID-19 VACCINE (4 - Booster) COVID-19 VACCINE (4 - Booster) [facility] Start: 2021 HPV TESTING HPV TESTING [facility] Start: 2021 Screening for malignant neoplasm of cervix HPV Testing [facility] Start: 2018 HPV Vaccine (1 - 3-dose SCDM series) HPV Vaccine (1 - 3-dose SCDM series) [facility] Start: 02-12-2012 PAP TESTING PAP TESTING [facility] Start: 02-12-2012 Screening for malignant neoplasm of cervix [facility] Start: 2010 Urine microalbumin profile DTAP,TDAP,TD (1 - Tdap) [facility] Start: 2009 Annual PCP Team Chronic Disease Visit Annual PCP Team Chronic Disease Visit [facility] Start: 2009 Anxiety Screening Anxiety Screening [facility] Start: 2009 Depression Screening Depression Screening [facility] Start: 2009 HEPATITIS C SCREENING HEPATITIS C SCREENING [facility] Start: 2009 Hepatitis C screening Hepatitis C Screening [facility] Start: 2009 HIV SCREENING HIV SCREENING [facility] Start: 2009 HIV screening HIV Screening [facility] Start: 2006 HIV screening HIV SCREENING DISCUSSION [facility] Start: 2003 Adult depression screening assessment DEPRESSION SCREENING [facility] Start: 1991 HEPATITIS B (1 of 3 - 3-dose series) HEPATITIS B (1 of 3 - 3-dose series) [facility] Start: 1991 Hepatitis C screening HEPATITIS C VIRUS SCREENING [facility] Bacteria identified in Urine by Culture URINE CULTURE Microbiology Routine Dysuria 01/02/2024 2:11 PM EDT [facility] Work Phone: End: 04-08-2024 BIOPHYSICAL PROFILE [facility] BIOPHYSICAL PROFILE [facility] Anc Imaging Routine Chronic hypertension complicating or reason for care during childbirth History of intrauterine in previous Supervision of high risk in second trimester Once per week for 15 Occurrences starting 10/11/2023 until 04/08/2024 [facility] Comment on above: Once per week for 15 Occurrences startin g 10/11/2023 until 04/08/2024 Endometrial bx w/wo endocervix bx w/o dilat spx ENDOMETRIAL BIOPSY Procedures Routine Abnormal uterine bleeding (AUB) Ordered: 12/25/2024 [facility] Work Phone: Comment on above: Ordered: 12/25/2024 End: 04-24-2023 EXTRA LAVENDER TOP EXTRA LAVENDER TOP Lab Routine Once for 1 Occurrences starting 04/24/2023 until 04/24/2023 [facility] Comment on above: Once for 1 Occurrences starting 04/24/20 until 04/24/2023 EXTRA LAVENDER TOP EXTRA LAVENDE R TOP Lab Routine 04/24/2023 1:13 AM EST [facility] End: 04-24-2023 EXTRA TUBES EXTRA TUBES Lab Routine One Time for 1 Occurrences starting 04/24/2023 until 04/24/2023 [facility] Work Phone: Comment on above: One Time for 1 Occurrences starting 04/08 until 04/24/2023 EXTRA TUBES EXTRA TUBES Lab Routine 04/24/2023 1:13 AM EST [facility] End: 12-22-2023 nonstress test NON-STRESS TEST Procedures Routine Chronic hypertension complicating or reason for care during childbirth History of intrauterine in previous Supervision of high risk in second trimester Once per week for 15 Occurrences starting 10/11/2023 until 12/22/2023 [facility] Work Phone: Comment on above: Once per week for 15 Occurrences startin g 10/11/2023 until 12/22/2023 End: 04-23-2023 LAVENDER TOP TUBE [facility] Comment on above: Once for 1 Occurrences starting 04/23/20 until 04/23/2023 End: 04-23-2023 MINT GREEN TOP TUBE [facility] Comment on above: Once for 1 Occurrences starting 04/23/20 until 04/23/2023 End: 12-22-2023 OBSTETRIC ULTRASOUND WHI OBSTETRIC ULTRASOUND [facility] Anc Imaging Routine 23 weeks gestation of Encounter for supervision of high risk in second trimester, antepartum Chronic hypertension affecting POTS (postural orthostatic tachycardia syndrome) Tachycardia Once per month for 8 Occurrences starting 09/07/2023 until 12/22/2023 [facility] Comment on above: Once per month for 8 Occurrences startin g 09/07/2023 until 12/22/2023 PAP TEST PAP TEST Lab Shanae leonardo care and examination Encounter for screening for malignant neoplasm of cervix 01/16/2024 11:23 AM EDT [facility] Work Phone: Patient Education [facility] ED False Labor OB Triage: Return to Hospital or Notify Physician if you Experience: [facility] Work Phone: Patient referral [facility] Work Phone: End: 04-23-2023 RAINBOW DRAW [facility] Comment on above: One Time for 1 Occurrences starting 04/08 until 04/23/2023 End: 04-23-2023 Standard ECG [facility] Comment on above: One Time for 1 Occurrences starting 04/08 until 04/23/2023 Tissue Pathology bio psy report SURGICAL PATHOLOGY Lab Routine Abnormal uterine bleeding (AUB) Adenomyosis of uterus Irregular menstruation 01/08/2025 2:17 PM EDT [facility] Work Phone: URINE OB DIP B/O URINE OB DIP B/ O Lab Routine 15 weeks gestation of Encounter for supervision of high risk in second trimester, antepartum Ordered: 07/13/2023 [facility] Work Phone: Comment on above: Ordered: 07/13/2023 URINE OB DIP B/O URINE OB DIP B/ O Lab Routine 34 weeks gestation of High-risk in third trimester Chronic hypertension complicating or reason for care during childbirth History of intrauterine in previous Ordered: 11/25/2023 [facility] Work Phone: Comment on above: Ordered: 11/25/2023 [facility] Immunizations Immunization Date Immunization Notes Care Provider Carola [facility] 10-11-2023 tetanus toxoid, redu javan diphtheria toxoid, and acellular pertussis vaccine, adsorbed Jen Raegan Dale MD Work Phone: [facility] 01-20-2023 hepatitis B vaccine, adult dosage Tabby Krueger MD Work Phone: [facility] 11-22-2022 hepatitis B vaccine, adult dosage Tabby Krueger MD Work Phone: [facility] 04-28-2021 COVID-19 original vaccine, full dose, monovalent (MODERNA) Tabby Krueger MD Work Phone: [facility] 12-19-2020 tetanus toxoid, redu javan diphtheria toxoid, and acellular pertussis vaccine, adsorbed [facility] 06-13-2020 COVID-19 original vaccine, full dose, monovalent (MODERNA) Tabby Krueger MD Work Phone: [facility] 06-09-2020 Covid (Pfizer) [facility] Payers Date Payer Category Payer Self-pay [id number] 2023 Unknown [id number] 2016 Unknown [id number] 2012 Private Health Insurance [facility] UMR CHOICE PLUS [id number] 2012-Present [phone] [address] [address] [place] [address] O [id number] 2012 Private Health Insurance [id number] 1991 Unknown [id number]. 902 1991 Unknown [id number]. 419 1991 Unknown [id number]. 419 1991 Unknown [id number]. 419 1991 Unknown [id number] [id number]. 419 1991 Unknown [id number] 2.16.840.1.544359.3.579.2. 419 1991 Unknown [id number] 2.16.840.1.261977.3.579.2. 419 1991 Unknown [id number] 2.16.840.1.966457.3.579.2. 419 1991 Unknown [id number] 2.16.840.1.104591.3.579.2. 419 1991 Unknown [id number] 2.16.840.1.254929.3.579.2. 419 1991 Unknown [id number] 2.16.840.1.710093.3.579.2. 594 1991 Unknown [id number] 2.16.840.1.363604.3.579.2. 594 1991 Unknown [id number] 2.16.840.1.501763.3.579.2. 651 1959 Unknown [id number] Unknown [id number] Unknown [facility] [id number] [place] [address] [id number] Unknown [id number] [id number]. 462 Unknown [id number]. 462 Social History Date Type Detail Facility Start: 02-20-2019 End: 07-01-2023 Tobacco smoking status MOIS Never smoked tobacco [facility] Start: 02-20-2019 End: 07-01-2023 Tobacco use and exposure Smokeless tobacco non-user [facility] Start: 07-01-2021 End: 01-08-2025 Alcohol intake Lifetime non-drinker (finding) [facility] Start: 06-04-2021 History SDOH Alcohol Frequency 1 [facility] Start: 1990 Sex Assigned At Female C [facility] Start: 2021 End: 07-15-2022 Tobacco smoking status MOIS Unknown if ever smoked [facility] Start: 10-30-2018 None [facility] Start: 10-30-2018 Spouse/ Signif icant Other [facility] Start: 04-26-2019 Non-smoker [facility] Start: 02-23-2019 Alcohol intake 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 non-dr electric serviceman of alcohol (finding) [facility] Start: 03-01-2020 End: 10-22-2024 History of Social function [facility] Start: 03-01-2020 End: 10-22-2024 Tobacco use panel [facility] Start: 1990 Sex Assigned At Not on file O [facility] Start: 06-12-2021 Gender identity Identifies as female gender (finding) [facility] Start: 09-23-2015 National Score (1-100), lower number is lower risk 76 [facility] Start: 07-01-2023 Education 17 [facility] Start: 04-10-2023 [facility] Start: 06-12-2021 Sexual orientation Heterosexual (verona thomas) [facility] NEGATED: Highlighted rowStart: NINF History of tobacco use Passive smoker [facility] Clinical Notes 01-28-2021 to 02-07-2025 Patient InstructionsGeovanna Avilez APRN.CNM - 01/08/2025 1:43 PM EDTTelephone Encounter - Batool Rogel RN - 12/25/2024 4:43 PM EDTPatient InstructionsPatient InstructionsPatient Instructions Note Date & Type Note Facility 02-07-2025 Note HNO ID: [id number] Author: TABBY KRUEGER MD Service: ? Author Type: Physician Type: Progress Notes Filed: 02/07/2025 13:05 Note Text: Obstetrics and Gynecology [place] [employer] OR OPERATOR Visit Subjective Recording using [employer] software for draft documentation of the visit was discussed with the patient/authorized payable representative; all questions welcomed and answered. Patient/authorized payable representative agreed to proceed CHIEF COMPLAINT: The [...] No history of hemorrhaging or blood transfusions [id number]; was anemic after the first and received [...] any history of hemorrhaging or blood transfusions [id number]; was anemic after the first and received [...] Living2 SAB0 IAB0 Ectopic0 Multiple0 Live Births2 Information Systems Security Developer History LMP: 12/10/2024 (Exact Date), Having periods Age at Menarche: Age at First : Age at Menopause: Information Systems Security Developer History Comments: Sexual Activity: Yes; Male Contraception: No contraception data on record PAST MEDICAL HISTORY Diagnosis Date Anemia 07/2018 Arachnoid cyst History of intrauterine in previous 07/01/2023 Hx of preeclampsia, prior , currently ([facility]) 01/2021 Around 32weeks Left lower quadrant abdominal pain 07/01/2023 Reports random sharp pain to left side. Likely round ligament pain. To notify if persistent or worsening. Lyme disease Mesenteric lymphadenitis POTS (postural orthostatic tachycardia syndrome) TIA (transient ischemic attack) 04/2023 Vaginal bleeding in , first trimester ([facility]) 07/01/2023 Per OB records, humza gestational hemorrhage: [...] Rubb* Hives, Rash (more content not included)... [facility] 01-08-2025 Instructions Saadia Calix MA - [...] in 3 to 5 business days via [employer], unless a different method of communication was discussed today with your provider. documented in this encounter [facility] 01-08-2025 Note HNO ID: [id number] Author: GEOVANNA AVILEZ APRN.MITZI Service: ? Author Type: Dog Breeder Type: Progress Notes Filed: 01/08/2025 15:57 Note Text: Stove Refinisher offered: Patient declines. Clarisa is a 34 [...] and then discuss further. Geovanna Avilez APRN.CNM [facility] 01-08-2025 History of Presen t illness Narrative Stove Refinisher offered: Patient declines. Clarisa is a 34 [...] Geovanna Avilez APRN.CNM documented in this encounter [facility] 12-25-2024 Telephone encounter Note Patient notified and scheduled for 01/08 with KIERSTEN. Batool Rogel RN [facility] 12-25-2024 Miscellaneous Notes Patient notified and scheduled for 01/08 with JC. Batool Rogel RN 01/08 at 1:50? Can add it or just put it in a spot Geovanna Avilez APRN.CNM How soon should she get EMB? You have no available molder pipe covering slots until 01/15 for 15 min slot [...] Batool Rogel RN documented in this encounter [facility] 12-25-2024 Telephone encounter Note 01/08 at 1:50? Can add it or just put it in a spot Geovanna Avilez APRN.CNM [facility] 12-25-2024 Telephone encounter Note How soon should she get EMB? You have no available molder pipe covering slots until 01/15 for 15 min slot only. Batool Rogel RN [facility] 12-25-2024 Telephone encounter Note Can she schedule for an endometrial biopsy and can discuss further. Thank you, Geovanna Avilez APRN.CNM [facility] 12-25-2024 Telephone encounter Note Patient calling in [...] feeling fatigued. Please advise. Batool Rogel RN [facility] 11-05-2024 Instructions Geovanna Avilez APRN.CNM - 11/05/2024 [...] less iron deficiency anemia in pill users. halfway use is associated with a decreased incidence [...] and mild fluid retention. There is no ad terminal makeup operator weight gain with the use of the [...] necessary health information. documented in this encounter [facility] 11-05-2024 Note HNO ID: [id number] Author: GEOVANNA AVILEZ APRN.CNM Service: ? Author Type: Dog Breeder Type: Progress Notes Filed: 11/16/2024 07:33 Note Text: Obstetrics and Gynecology [place] [employer] OR OPERATOR Visit Subjective Recording using [employer] software for draft documentation of the visit was discussed with the patient/authorized payable representative; all questions welcomed and answered. Patient/authorized payable representative agreed to proceed DISTANCE HEALTH VISIT This Team Access Model visit is a virtual encounter. It required patient-provider interaction for the medical decision making as documented below. I have communicated my name and active licensure. The patient's identity and physical location were verified at the time of this visit. Either the patient or their legal payable representative has been informed of the risks [...] Living2 SAB0 IAB0 Ectopic0 Multiple0 Live Births2 Information Systems Security Developer History LMP: 10/03/2024 (Exact Date), Having periods Age at Menarche: Age at First : Age at Menopause: Information Systems Security Developer History Comments: Sexual Activity: Yes; Male Contraception: No contraception data on record PAST MEDICAL HISTORY Diagnosis Date Anemia 07/2018 Arachnoid cyst History of intrauterine in previous 07/01/2023 Hx of preeclampsia, prior , currently ([facility]) 01/2021 Around 32weeks Left lower quadrant abdominal pain 07/01/2023 Reports random sharp pain to left side. Likely round ligament pain. To notify if persistent or worsening. Lyme disease Mesenteric lymphadenitis POTS (postural orthostatic tachycardia syndrome) TIA (transient ischemic attack) 04/2023 Vaginal bleeding in , first trimester ([facility]) 07/01/2023 Per OB records, humza gestational hemorrhage: [...] (+) dysmenorrhea Neurolo (more content not included)... [facility] 11-05-2024 History of Presen t illness Narrative Images from the original note were not included. Obstetrics and Gynecology [place] [employer] OR OPERATOR Visit Subjective Recording using [employer] software for draft documentation of the visit was discussed with the patient/authorized payable representative; all questions welcomed and answered. Patient/authorized payable representative agreed to proceed DIST[facility] HEALTH VISIT This Team Access Model visit is a virtual encounter. It required patient-provider interaction for the medical decision making as documented below. I have communicated my name and active licensure. The patient's identity and physical location were verified at the time of this visit. Either the patient or their legal payable representative has been informed of the risks [...] Living2 SAB0 IAB0 Ectopic0 Multiple0 Live Births2 Information Systems Security Developer History LMP: 10/03/2024 (Exact Date), Having periods Age at Menarche: Age at First : Age at Menopause: Information Systems Security Developer History Comments: Sexual Activity: Yes; Male Contraception: No contraception data on record PAST MEDICAL HISTORY Diagnosis Date Anemia 07/2018 Arachnoid cyst History of intrauterine in previous 07/01/2023 Hx of preeclampsia, prior , currently ([facility]) 01/2021 Around 32weeks Left lower quadrant abdominal [...] 07/17/2018 FOr retained [facility] PORT Insertion & removal x 2 [...] external genitalia normal, normal Bartholin's glands, urethra, Haledon's glands, no vulvar lesions, no cervical lesions, [...] of focal adenomyosis. Clinical correlation. Latest Ref [facility] 10/22/2024 WBC 3.70 - 11.00 k/uL [...] Abs Lymph 1.00 - 4.00 k/uL 1.81 Canadian% % 8.0 Abs Canadian <0.87 k/uL 0.62 Eosin% % 6.5 Abs [...] with more than 50% of the total [id number] time of the visit in counseling / coordination of care. documented in this encounter [facility] 10-31-2024 Telephone encounter Note Patient called and virtual visit scheduled. Ester Sandoval RN [facility] 10-31-2024 Miscellaneous Notes Patient called and virtual [...] Geovanna Avilez APRN.CNM documented in this encounter [facility] 10-31-2024 Telephone encounter Note Tuesday at 1130 or 330. Thanks, Geovanna Avilez APRN.CNM [facility] 10-31-2024 Telephone encounter Note Patient called to schedule. There are no available appointments with you next week either. When would you like her worked in? Thank you. [facility] 10-31-2024 Telephone encounter Note You have no openings next week. Where would you like patient to be seen? Ester Sandoval RN [facility] 10-31-2024 Telephone encounter Note Please assist in scheduling with me for next week for follow up. Thanks, Geovanna Avilez APRN.CNM [facility] 10-30-2024 Telephone encounter Note No openings with you tomorrow. Where would you like patient added? Delmy Caballero, RN [facility] 10-30-2024 Telephone encounter Note Please schedule patient with me for virtual visit tomorrow to discuss results and plan of care. Geovanna Avilez APRN.CNM [facility] 10-27-2024 Note HNO ID: [id number] Author: KAYLYNN LOOMIS MD Service: ? Author Type: Physician Type: Progress Notes Filed: 10/27/2024 11:52 Note Text: The patient presents for requested ultrasound. Full report available in the Imaging tab in [employer]. Kaylynn Loomis MD [facility] 10-27-2024 History of Presen t illness Narrative The patient presents for requested ultrasound. Full report available in the Imaging tab in [employer]. Kaylynn Loomis MD documented in this encounter [facility] 10-22-2024 Note HNO ID: [id number] Author: GEOVANNA AVILEZ APRN.CNM Service: ? Author Type: Dog Breeder Type: Progress Notes Filed: 10/22/2024 14:23 Note Text: Obstetrics and Gynecology [place] 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 Likely round ligament pain. To notify if persistent or worsening. Lyme disease Mesenteric lymphadenitis POTS (postural orthostatic tachycardia syndrome) TIA (transient ischemic attack) 04/2023 Vaginal bleeding in , first trimester ([facility]) 07/01/2023 Per OB records, humza gestational hemorrhage: [...] discussed with the Patient or Patient's Authorized Ethylene Plant Operator. As applicable, any other physician, advance practice provider, medical student, or other health professional student that will be observing or involved in the sensitive examination for educational or training purposes was discussed with the Patient or Authorized Ethylene Plant Operator. The Patient or Authorized Ethylene Plant Operator has agreed to proceed with the sensitive [...] PELVIC: external ge (more content not included)... [facility] 10-22-2024 History of Presen t illness Narrative Images from the original note were not included. Obstetrics and Gynecology [place] [employer]OUNGE DR[employer] OR OPERATOR Visit Subjective Recording using [employer] software for draft documentation of the visit was discussed with the patient/authorized payable representative; all questions welcomed and answered. 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 Likely round ligament pain. To notify if persistent or worsening. Lyme disease Mesenteric lymphadenitis POTS (postural orthostatic tachycardia syndrome) TIA (transient ischemic attack) 04/2023 Vaginal bleeding in , first trimester ([facility]) 07/01/2023 Per OB records, humza gestational hemorrhage: [...] discussed with the Patient or Patient's Authorized Ethylene Plant Operator. As applicable, any other physician, advance practice provider, medical student, or other health professional student that will be observing or involved in the sensitive examination for educational or training purposes was discussed with the Patient or Authorized Ethylene Plant Operator. The Patient or Authorized Ethylene Plant Operator has agreed to proceed with the sensitive [...] external genitalia normal, normal Bartholin's glands, urethra, Haledon's glands, no vulvar lesions, no cervical lesions, good vaginal support, physiologic discharge present, normal appearing perineal body and perianal region - BIMANUAL: uterus normal size, shape and consistency, no adnexal masses, left-sided pelvic pain on palpation - Patient consent for exam received NEURO: alert and oriented x3 EXTREMITIES: normal SENSITIVE EXAMINATION CONSENT: The sensitive examination was discussed with the Patient or Patient's Authorized Ethylene Plant Operator. As applicable, any other physician, advance practice provider, medical student, or other health professional student that will be observing or involved in the sensitive examination for educational or training purposes was discussed with the Patient or Authorized Ethylene Plant Operator. The Patient or Authorized Ethylene Plant Operator has agreed to proceed with the sensitive [...] Geovanna Avilez APRN.CNM documented in this encounter [facility] 09-30-2024 Note HNO ID: [id number] Author: JENIFFER STYLES APRN.CNP Service: ? Author [...] 07/01/2023 Hx of preeclampsia, prior , currently ([facility]) 01/2021 Around 32weeks Left lower quadrant abdominal pain 07/01/2023 Reports random sharp pain to left side. Likely round ligament pain. To notify if persistent or worsening. Lyme disease Mesenteric lymphadenitis POTS (postural orthostatic tachycardia syndrome) TIA (transient ischemic attack) 04/2023 Vaginal bleeding in , first trimester ([facility]) 07/01/2023 Per OB records, humza gestational hemorrhage: 2.4 cm on dating ultrasound. Reviewed likely the cause of her bleeding and that it likely resolved. Plans for NT scan and will confirm. No further bleeding. PAST SURGICAL HISTORY Procedure Laterality Date DELIVERY ONLY 2021 DELIVERY ONLY 11/30/2023 LTCS D AND C 07/17/2018 FOr retained [facility] PORT Insertion AND removal x 2 [...] MG-POTASSIUM CLAVULANATE 125 MG TABLET Jeniffer Styles APRN.TELETYPE OPERATOR History and Record Review External record(s) reviewed: prior outpatient record. Disposition The patient was discharged. Procedures [facility] 09-30-2024 History of Presen t illness [...] 07/01/2023 Hx of preeclampsia, prior , currently ([facility]) 01/2021 Around 32weeks Left lower quadrant abdominal pain 07/01/2023 Reports random sharp pain to left side. Likely round ligament pain. To notify if persistent or worsening. Lyme disease Mesenteric lymphadenitis POTS (postural orthostatic tachycardia syndrome) TIA (transient ischemic attack) 04/2023 Vaginal bleeding in , first trimester ([facility]) 07/01/2023 Per OB records, humza gestational hemorrhage: [...] was discharged. Procedures documented in this encounter [facility] 01-16-2024 History of Presen t illness Narrative Stove Refinisher offered: Patient declines. VISIT Clarisa De La Cruz is a 33 year old year old here for visit. Delivery Summary: C/S 11/30/2023 ROS/ Recovery: Feeding: Breast feeding problems: None Menses since delivery: none Menstrual pattern prior to : Regular periods [place] since delivery: Not resumed Depression: denies symptoms [...] external genitalia normal, normal Bartholin's glands, urethra, Haledon's glands, no vulvar lesions, no cervical lesions, [...] Tabby Krueger MD documented in this encounter [facility] 01-10-2024 Instructions Silvestre Mina APRN.[facility] - 01/10/2024 7:22 AM EDT AND -MIGRAINE MANAGEMENT Mary Hendrix MD [facility] August 2014 Along with the [...] passes on mother s milk to the . The good news is that most women [...] avoid the use of typical prescribed and sikd-oxz-enuqxnd as-needed medications previously used for headache. During [...] animals or fetuses. Memantine (brand name Namenda, [employer], [facility]) is one of the few preventives [...] shown some possibility of risk. A large Arabic study found an increased frequency of behavioral [...] numbing the gums, represent another option for helylvhcq-hz-njtle migraines in . Lidocaine has not been [...] through the mother s milk to her , and this includes benzodiazepine tranquilizers and narcotics. As noted before, antihistamines such as diphenhydramine and cyproheptadine are not recommended in a nursing mother. Sumatriptan has a registry of infants whose mothers used this migraine medication, and no harm was found with its use acutely to treat migraine. The [employer] As noted before, association cleared sumatriptan [...] most medications are passed on to the in breast milk in varying degrees. Some [...] data HOWEVER Imitrex has been promoted by [employer] for due to its safety over the [...] a single subcutaneous injection would virtually eliminate exposure to the drug. The strap buckler machine recommends withholding for 12 hours after a dose. Withholding might be helpful in extreme cases, such as in the mother of a , but sumatriptan would not be expected to cause any adverse effects in most breastfed infants. documented in this encounter [facility] 01-10-2024 History of Presen t illness Narrative [...] visit. Either the patient or their legal payable representative has been informed of the risks [...] these with the patient: yes Silvestre Mina APRN.TELETYPE OPERATOR HEADACHE SCORES: 10/20/2023 01/10/2024 Headache Questions ID [...] appetite, stress, exercising). Physical Examination: Vital Signs: [facility] 03/27/2023 General: well appearing, in no acute distress, alert Pain Behaviors: no pain behaviors observed Neurological: Mental Status: Alert and oriented to person, place and time. Affect is normal and appropriate. Speech is spontaneous and fluent without dysarthria, normal in rate, volume and articulation, and clear, coherent, and relevant. Short and halfway memory, cognition and general fund of knowledge [...] Service: Virtual Visit 20 minutes Silvestre Mina APRN.TELETYPE OPERATOR Headache Section [facility] January 10, 2024 documented in this encounter [facility] 01-02-2024 History of Presen t illness Narrative [...] issues Sleep: no sleep concerns, feels rested [place] since delivery: Not resumed Emotional support: Yes [...] which included preparing to see the patient, llxs-gy-jlbm patient care, completing clinical documentation, obtaining and/or reviewing separately obtained history, performing a medically appropriate examination, counseling and educating the patient/family/caregiver, and ordering medications, tests, or procedures. Follow up: Return to Clinic for 6 week visit and as needed Jen Murphy MD documented in this encounter [facility] 12-09-2023 Telephone encounter Note Orders signed. It can be common for burning S/P meza catheter placement as well! Rosalinda Bob APRN.CNM [facility] Work Phone: 12-09-2023 Miscellaneous Notes Orders signed. It can be common for burning S/P meza catheter placement as well! Rosalinda Bob APRN.CNM Patient delivered via C/S on 11/29. UA and urine culture orders pending. Delmy Caballero RN documented in this encounter [facility] 12-09-2023 Telephone encounter Note Patient delivered via C/S on 11/29. UA and urine culture orders pending. Delmy Caballero RN [facility] 12-05-2023 History of Presen t illness Narrative [...] issues Sleep: no sleep concerns, feels rested [place] since delivery: Not resumed Emotional support: Yes [...] Geovanna Avilez APRN.CNM documented in this encounter [facility] 12-02-2023 Telephone encounter Note L&D aware of RR instructions and PP appt scheduled for Tuesday. Valerie Combs RN [facility] 12-02-2023 Miscellaneous Notes L&D aware of RR instructions and PP appt scheduled for Tuesday. Valerie Combs RN Patient requests d/c today. Needs f/u on Tuesday. Will monitor BP at home. rxs sent for d/c home. Tabby Krueger MD Please file Procardia and labetalol rx. Pharmacy updated to [facility] Retail pharmacy. Batool Rogel RN documented in this encounter [facility] 12-02-2023 Telephone encounter Note Patient requests d/c today. Needs f/u on Tuesday. Will monitor BP at home. rxs sent for d/c home. Tabby Krueger MD [facility] 12-02-2023 Telephone encounter Note Please file Procardia and labetalol rx. Pharmacy updated to [facility] Retail pharmacy. Batool Rogel RN [facility] 12-01-2023 History of Presen t illness Narrative Patient delivered via by Dr. Krueger on 11/30/23 at [facility]. See OB history. Batool Rogel RN documented in this encounter [facility] 11-30-2023 Telephone encounter Note Called patient and she was informed to go to L&D. Called Francine at [facility] and informed her that patient was coming. Copy of Episode faxed to L&D [facility] 11-30-2023 Miscellaneous Notes Called patient and she was informed to go to L&D. Called Francine at [facility] and informed her that patient was coming. Copy of Episode faxed to L&D To L&D for evaluation today please. Tabby Krueger MD I called patient. She is 35w3d She is having having headaches-rates a 5-6 on pain mumzf-oaahcbqbexhr-mj worse thatn when seen 2 days ago. [...] schedule. Please advise documented in this encounter [facility] 11-30-2023 Telephone encounter Note To L&D for evaluation today please. Tabby Krueger MD [facility] 11-30-2023 Telephone encounter Note I called patient. She is 35w3d She is having having headaches-rates a 5-6 on pain vilkl-rjpvnwwysbpf-ud worse thatn when seen 2 days ago. [...] NST - Dr Song's schedule. Please advise [facility] 11-28-2023 Note Indication Evaluation of well-being Chronic [...] RTO in 1 week Geovanna Avilez APRN.CNM [facility] 11-28-2023 Miscellaneous Notes KIERSTEN-S: Clarisa De La [...] Geovanna Avilez APRN.CNM documented in this encounter [facility] 11-28-2023 Instructions Haley Barrera MA - 11/28/2023 10:44 AM EDT SEQUENTIAL SCREENINGS The [facility] offers sequential screenings for women who are [...] It will require an appointment with our research laboratory technician. This is not an ultrasound performed [...] the above symptoms, contact our office at [phone] and ask to speak with a nurse. After hours, you can call doctors registry at [phone] OR call [facility] at [phone] and ask to have the doctor high school physical education teacher paged. If you consider this an emergency, dial 01-07-6 or go to your nearest emergency department. NEED HELP? Are you dealing with a violent or abusive relationship? Are you a victim of rape or sexual assult? Call [facility] ([place]) 24 hour Crisis Hotline: 517.286.6349 or 455-288-1714. MANUAL Your Guide to a Healthy manual is now on-line. Visit [email or web address] [email or web address] to download your free copy documented in this encounter [facility] 11-25-2023 Progress note Formatting of t his note might be different from the original. NST ONLY [facility] 11-25-2023 History of Presen t illness Narrative [...] Jen Murphy MD documented in this encounter [facility] 11-25-2023 Miscellaneous Notes NST ONLY documented in this encounter [facility] 11-25-2023 Instructions Anders AlvarezathTATUM lopez - 11/25/2023 9:22 AM EDT SEQUENTIAL SCREENINGS The [facility] offers sequential screenings for women who are [...] It will require an appointment with our research laboratory technician. This is not an ultrasound performed [...] the above symptoms, contact our office at [phone] and ask to speak with a nurse. After hours, you can call doctors registry at [phone] OR call [facility] at [phone] and ask to have the doctor high school physical education teacher paged. If you consider this an emergency, dial or go to your nearest emergency department. NEED HELP? Are you dealing with a violent or abusive relationship? Are you a victim of rape or sexual assult? Call [facility] ([place]) 24 hour Crisis Hotline: 329.745.1420 or 461-253-2328. MANUAL Your Guide to a Healthy manual is now on-line. Visit [email or web address] [email or web address] to download your free copy documented in this encounter [facility] 11-21-2023 Note Indication Evaluation of well-being Chronic [...] URINE OB DIP B/O Delmy Brasher MD [facility] 11-21-2023 Miscellaneous Notes S: Clarisa De La [...] Delmy Brasher MD documented in this encounter [facility] 11-21-2023 Instructions Soraida BolanosTATUM - 11/21/2023 1:15 PM EDT SEQUENTIAL SCREENINGS The [facility] offers sequential screenings for women who are [...] It will require an appointment with our research laboratory technician. This is not an ultrasound performed [...] the above symptoms, contact our office at [phone] and ask to speak with a nurse. After hours, you can call doctors registry at [phone] OR call [facility] at [phone] and ask to have the doctor high school physical education teacher paged. If you consider this an emergency, dial 9--1 or go to your nearest emergency department. NEED HELP? Are you dealing with a violent or abusive relationship? Are you a victim of rape or sexual assult? Call [facility] ([place]) 24 hour Crisis Hotline: 988.811.6994 or 440-992-4935. MANUAL Your Guide to a Healthy manual is now on-line. Visit [email or web address] [email or web address] to download your free copy documented in this encounter [facility] 11-18-2023 History of Presen t illness Narrative [...] Geovanna Avilez APRN.CNM documented in this encounter [facility] 11-18-2023 Instructions Oswald Blandon MA - 11/18/2023 9:37 AM EDT SEQUENTIAL SCREENINGS The [facility] offers sequential screenings for women who are [...] It will require an appointment with our research laboratory technician. This is not an ultrasound performed [...] the above symptoms, contact our office at [phone] and ask to speak with a nurse. After hours, you can call [facility] at [phone] OR call [facility] at [phone] and ask to have the doctor high school physical education teacher paged. If you consider this an emergency, dial 9-3-8 or go to your nearest emergency department. NEED HELP? Are you dealing with a violent or abusive relationship? Are you a victim of rape or sexual assult? Call [facility] ([place]) 24 hour Crisis Hotline: 599.373.5865 or 729-266-0025. MANUAL Your Guide to a Healthy manual is now on-line. Visit [email or web address] [email or web address] to download your free copy documented in this encounter [facility] 11-15-2023 Note Indication Evaluation of well-being Chronic [...] reviewed, Kick counts reviewed Maximilian Valdovinos MD [facility] 11-15-2023 Miscellaneous Notes KJ - VB No. [...] Maximilian Valdovinos MD documented in this encounter [facility] 11-15-2023 Instructions Soraida Bolanos MA - 11/15/2023 1:25 PM EDT SEQUENTIAL SCREENINGS The [facility] offers sequential screenings for women who are [...] It will require an appointment with our research laboratory technician. This is not an ultrasound performed [...] the above symptoms, contact our office at [phone] and ask to speak with a nurse. After hours, you can call doctors registry at [phone] OR call [facility] at [phone] and ask to have the doctor high school physical education teacher paged. If you consider this an emergency, dial 9-1- or go to your nearest emergency department. NEED HELP? Are you dealing with a violent or abusive relationship? Are you a victim of rape or sexual assult? Call [facility] ([place]) 24 hour Crisis Hotline: 797.668.4146 or 698-296-8868. MANUAL Your Guide to a Healthy manual is now on-line. Visit [email or web address] [email or web address] to download your free copy documented in this encounter [facility] 11-11-2023 History of Presen t illness Narrative [...] Maximilian Valdovinos MD documented in this encounter [facility] 11-11-2023 Progress note Formatting of t his [...] reviewed, Kick counts reviewed. Maximilian Valdovinos MD [facility] 11-11-2023 Miscellaneous Notes KJ - VB No. [...] Maximilian Valdovinos MD documented in this encounter [facility] 11-07-2023 Note Indication Evaluation of growth, Evaluation [...] 13 oz EFW by: Kt (HC-AC-FL) Extended Commercial Airplane Pilot 5.8 mm Extremities / Bony Struc FL [...] Jen Murphy MD documented in this encounter [facility] 11-07-2023 Instructions Haley Barrera MA - 11/07/2023 8:20 AM EDT SEQUENTIAL SCREENINGS The [facility] offers sequential screenings for women who are [...] It will require an appointment with our research laboratory technician. This is not an ultrasound performed [...] the above symptoms, contact our office at [phone] and ask to speak with a nurse. After hours, you can call doctors registry at [phone] OR call [facility] at [phone] and ask to have the doctor high school physical education teacher paged. If you consider this an emergency, dial 7-- or go to your nearest emergency department. NEED HELP? Are you dealing with a violent or abusive relationship? Are you a victim of rape or sexual assult? Call [facility] ([place]) 24 hour Crisis Hotline: 526.247.7057 or 045-792-9867. MANUAL Your Guide to a Healthy manual is now on-line. Visit [email or web address] [email or web address] to download your free copy documented in this encounter [facility] 11-04-2023 History of Presen t illness Narrative [...] Tabby Krueger MD documented in this encounter [facility] 11-04-2023 Progress note Formatting of t his [...] delivery before scheduled c/s Tabby Krueger M.D. [facility] 11-04-2023 Miscellaneous Notes RR- VB No. LOF [...] Tabby Krueger M.D. documented in this encounter [facility] 11-04-2023 Instructions Анна Alvarez MA - 11/04/2023 10:30 AM EDT SEQUENTIAL SCREENINGS The [facility] offers sequential screenings for women who are [...] It will require an appointment with our research laboratory technician. This is not an ultrasound performed [...] the above symptoms, contact our office at [phone] and ask to speak with a nurse. After hours, you can call doctors registry at [phone] OR call [facility] at [phone] and ask to have the doctor high school physical education teacher paged. If you consider this an emergency, dial 9-0 or go to your nearest emergency department. NEED HELP? Are you dealing with a violent or abusive relationship? Are you a victim of rape or sexual assult? Call [facility] ([place]) 24 hour Crisis Hotline: 123.976.4537 or 534-700-8949. MANUAL Your Guide to a Healthy manual is now on-line. Visit [email or web address] ancyGuide to download your free copy documented in this encounter [facility] 11-01-2023 Note Indication Evaluation of well-being TIA, [...] reviewed, Kick counts reviewed. Maximilian Valdovinos MD [facility] Work Phone: 11-01-2023 Miscellaneous Notes KJ - [...] Maximilian Valdovinos MD documented in this encounter [facility] 11-01-2023 Instructions Soraida Bolanos MA - 11/01/2023 10:04 AM EDT SEQUENTIAL SCREENINGS The [facility] offers sequential screenings for women who are [...] It will require an appointment with our research laboratory technician. This is not an ultrasound performed [...] the above symptoms, contact our office at [phone] and ask to speak with a nurse. After hours, you can call doctors registry at [phone] OR call [facility] at [phone] and ask to have the doctor high school physical education teacher paged. If you consider this an emergency, dial 9-1-2 or go to your nearest emergency department. NEED HELP? Are you dealing with a violent or abusive relationship? Are you a victim of rape or sexual assult? Call [facility] ([place]) 24 hour Crisis Hotline: 340.973.6855 or 702-028-0104. MANUAL Your Guide to a Healthy manual is now on-line. Visit [email or web address] ancyGuide to download your free copy documented in this encounter [facility] 10-31-2023 Telephone encounter Note Looks like she [...] ER. Otherwise keep scheduled visit for tomorrow [facility] Work Phone: 10-31-2023 Miscellaneous Notes Looks like [...] Ester Sandoval RN documented in this encounter [facility] 10-31-2023 Telephone encounter Note Denies any dizziness [...] and routine OB visit. Ester Sandoval RN [facility] 10-26-2023 History of Presen t illness Narrative [...] Jen Murphy MD documented in this encounter [facility] 10-26-2023 Progress note Formatting of t his note might be different from the original. Nst only [facility] 10-26-2023 Miscellaneous Notes Nst only documented in this encounter [facility] 10-26-2023 Haley Huston MA - 10/26/2023 9:38 AM EDT SEQUENTIAL SCREENINGS The [facility] offers sequential screenings for women who are [...] It will require an appointment with our research laboratory technician. This is not an ultrasound performed [...] the above symptoms, contact our office at [phone] and ask to speak with a nurse. After hours, you can call doctors registry at [phone] OR call [facility] at [phone] and ask to have the doctor high school physical education teacher paged. If you consider this an emergency, dial 9-4-6 or go to your nearest emergency department. NEED HELP? Are you dealing with a violent or abusive relationship? Are you a victim of rape or sexual assult? Call [facility] ([place]) 24 hour Crisis Hotline: 211.853.6201 or 228-938-0294. MANUAL Your Guide to a Healthy manual is now on-line. Visit [email or web address] ancyGuide to download your free copy SEQUENTIAL SCREENINGS The [facility] offers sequential screenings for women who are [...] It will require an appointment with our research laboratory technician. This is not an ultrasound performed [...] the above symptoms, contact our office at [phone] and ask to speak with a nurse. After hours, you can call doctors registry at [phone] OR call [facility] at [phone] and ask to have the doctor high school physical education teacher paged. If you consider this an emergency, dial 9-8 or go to your nearest emergency department. NEED HELP? Are you dealing with a violent or abusive relationship? Are you a victim of rape or sexual assult? Call [facility] ([place]) 24 hour Crisis Hotline: 647.294.2618 or 900-266-7689. MANUAL Your Guide to a Healthy manual is now on-line. Visit [email or web address] [email or web address] to download your free copy documented in this encounter [facility] 10-25-2023 History of Presen t illness Narrative [...] 2023 3:17 PM documented in this encounter [facility] 10-25-2023 Note Indication Evaluation of well-being TIA, [...] - twice weekly testing Delmy Brasher MD [facility] 10-25-2023 Miscellaneous Notes S: Clarisa De La [...] Delmy Brasher MD documented in this encounter [facility] 10-25-2023 Instructions Soraida Bolanos MA - 10/25/2023 3:16 PM EDT SEQUENTIAL SCREENINGS The [facility] offers sequential screenings for women who are [...] It will require an appointment with our research laboratory technician. This is not an ultrasound performed [...] the above symptoms, contact our office at [phone] and ask to speak with a nurse. After hours, you can call doctors registry at [phone] OR call [facility] at [phone] and ask to have the doctor high school physical education teacher paged. If you consider this an emergency, dial 4-2-4 or go to your nearest emergency department. NEED HELP? Are you dealing with a violent or abusive relationship? Are you a victim of rape or sexual assult? Call [facility] ([place]) 24 hour Crisis Hotline: 297.413.8775 or 943-248-0634. MANUAL Your Guide to a Healthy manual is now on-line. Visit [email or web address] ancyGuide to download your free copy documented in this encounter [facility] 10-21-2023 History of Presen t illness Narrative [...] Maximilian Valdovinos MD documented in this encounter [facility] 10-21-2023 Instructions Soraida Bolanos MA - 10/21/2023 8:16 AM EDT SEQUENTIAL SCREENINGS The [facility] offers sequential screenings for women who are [...] It will require an appointment with our research laboratory technician. This is not an ultrasound performed [...] the above symptoms, contact our office at [phone] and ask to speak with a nurse. After hours, you can call doctors registry at [phone] OR call [facility] at [phone] and ask to have the doctor high school physical education teacher paged. If you consider this an emergency, dial 7--6 or go to your nearest emergency department. NEED HELP? Are you dealing with a violent or abusive relationship? Are you a victim of rape or sexual assult? Call [facility] ([facility]) 24 hour Crisis Hotline: 668.822.8966 or 581-843-3719. MANUAL Your Guide to a Healthy manual is now on-line. Visit [email or web address] ancyGuide to download your free copy documented in this encounter [facility] 10-18-2023 Note Indication Evaluation of well-being TIA, [...] reviewed, Kick counts reviewed. Maximilian Valdovinos MD [facility] 10-18-2023 Miscellaneous Notes KJ - VB No. [...] Maximilian Valdovinos MD documented in this encounter [facility] 10-18-2023 Instructions Saadia Calix MA - 10/18/2023 8:57 AM EDT SEQUENTIAL SCREENINGS The [facility] offers sequential screenings for women who are [...] It will require an appointment with our research laboratory technician. This is not an ultrasound performed [...] the above symptoms, contact our office at [phone] and ask to speak with a nurse. After hours, you can call doctors registry at [phone] OR call [facility] at [phone] and ask to have the doctor high school physical education teacher paged. If you consider this an emergency, dial 9-1-8 or go to your nearest emergency department. NEED HELP? Are you dealing with a violent or abusive relationship? Are you a victim of rape or sexual assult? Call [facility] ([facility] 24 hour Crisis Hotline: 193.261.9923 or 665-250-6504. MANUAL Your Guide to a Healthy manual is now on-line. Visit [email or web address] ancyGuide to download your free copy documented in this encounter [facility] 10-14-2023 Progress note Formatting of t his note might be different from the original. Nst only [facility] 10-14-2023 Miscellaneous Notes Nst only documented in this encounter [facility] 10-14-2023 History of Presen t illness Narrative [...] Jen Murphy MD documented in this encounter [facility] 10-14-2023 Instructions Haley Barrera MA - 10/14/2023 10:31 AM EDT SEQUENTIAL SCREENINGS The [facility] offers sequential screenings for women who are [...] It will require an appointment with our research laboratory technician. This is not an ultrasound performed [...] the above symptoms, contact our office at [phone] and ask to speak with a nurse. After hours, you can call doctors registry at [phone] OR call [facility] at [phone] and ask to have the doctor high school physical education teacher paged. If you consider this an emergency, dial 9--5 or go to your nearest emergency department. NEED HELP? Are you dealing with a violent or abusive relationship? Are you a victim of rape or sexual assult? Call [facility] ([facility]) 24 hour Crisis Hotline: 153.964.3022 or 116-977-7326. MANUAL Your Guide to a Healthy manual is now on-line. Visit [email or web address] ancyGuide to download your free copy documented in this encounter [facility] 10-11-2023 Progress note Formatting of t his [...] today. 28 week labs today. BPP 12/14 eJn Murphy MD [facility] 10-11-2023 Miscellaneous Notes DM- Pt doing well [...] Jen Murphy MD documented in this encounter [facility] 10-11-2023 History of Presen t illness Narrative [...] OB standpoint, feeling movement, no VB. Occasional Sen-Marcano contractions none currently. Objective: BP 124/82 Wt [...] due to IUFD history -Monthly growth ultrasounds -[facility] follow up with 34-36 week visit Medical Decision Making: Problems: Moderate: 1+ chronic illnesses with change Risk: Moderate: Moderate risk from testing/treatment and Drug management Medical Decision Making Level: 4 - Moderate Jasmina Collazo MD October 11, 2023 1:25 PM documented in this encounter [facility] 10-11-2023 Note Indication Evaluation of growth, Evaluation [...] serial growth ultrasounds as planned at previous [facility] consult Maternal Assessment Height 173 cm [...] 15 oz EFW by: Hadlock (HC-AC-FL) Extended Commercial Airplane Pilot 5.7 mm Extremities / Bony Struc FL [...] severely ill: Yes Patient denies history of Guillain-Somerset Syndrome (a severe paralytic illness): Yes Tdap Adacel injection was given without incident. See immunizations for details of immunizations administered today. VIS sheet provided: Yes Provider Chito was present in office at time of injection. Haley Barrera MA documented in this encounter [facility] 10-07-2023 Telephone encounter Note Patient 27w5d calling with concerns of increased BP's at home. Patient states her BP has been running 140-150/93-95. Patient states she has had a headache with dizziness and blurred vision since yesterday at 7 pm and Tylenol is not helping. Patient had Newton marcano contractions yesterday but nothing today. Denies any bleeding, leaking or decreased movement. Patient currently taking Labetalol 200 mg BID. Discuss with provider high school physical education teacher, Dr. Brasher and she would like patient to go to L&D for monitoring. Patient notified to proceed to L&D and L&D notified and updated. Ester Sandoval RN [facility] 10-07-2023 Miscellaneous Notes Patient 27w5d calling with concerns of increased BP's at home. Patient states her BP has been running 140-150/93-95. Patient states she has had a headache with dizziness and blurred vision since yesterday at 7 pm and Tylenol is not helping. Patient had Newton marcano contractions yesterday but nothing today. Denies any bleeding, leaking or decreased movement. Patient currently taking Labetalol 200 mg BID. Discuss with provider high school physical education teacher, Dr. Brasher and she would like patient to go to L&D for monitoring. Patient notified to proceed to L&D and L&D notified and updated. Ester Sandoval RN documented in this encounter [facility] 09-14-2023 Progress note Formatting of t his [...] presence of amniotic fluid. Lab Address: Ob/gynecology [address] [place] [address] Dept: [phone] Provider: Tabby Krueger MD A/P 24w3d Estimated Date of Delivery: 01/01/24 c/o vaginal discharge, eval on L&D, neg test for SROM. Neg fern here. No vaginitis symptoms or evidence of PTL. Reassured keep next appt or f/u prn chornic HTN- bp stable today . Tabby Krueger M.D. [facility] 09-14-2023 Miscellaneous Notes RR- VB No. LOF [...] presence of amniotic fluid. Lab Address: Ob/gynecology [address] [place] [address] Dept: [phone] Provider: Tabby Krueger MD A/P 24w3d Estimated Date of Delivery: 01/01/24 c/o vaginal discharge, eval on L&D, neg test for SROM. Neg fern here. No vaginitis symptoms or evidence of PTL. Reassured keep next appt or f/u prn chornic HTN- bp stable today . Tabby Krueger M.D. documented in this encounter [facility] 09-14-2023 Telephone encounter Note 24w3d Patient called because she is leaking a lot of fluid. She has LLQ pain and NANCE. Advised to go to L&D for evaluation after speaking with DM. L&D notified. Updated H&P faxed. Delmy Caballero, JUAN [facility] 09-14-2023 Miscellaneous Notes 24w3d Patient called because she is leaking a lot of fluid. She has LLQ pain and NANCE. Advised to go to L&D for evaluation after speaking with DM. L&D notified. Updated H&P faxed. Delmy Caballero RN documented in this encounter [facility] 09-08-2023 Telephone encounter Note Luther unable to get appointment until November. Faxed referral and information to [facility]. Will leave open for their reply. Advised patient to call us once she hears from them. Batool Rogel RN [facility] 09-08-2023 Miscellaneous Notes Luther unable to get appointment until November. Faxed referral and information to [facility]. Will leave open for their reply. Advised patient to call us once she hears from them. Batool Rogel RN Called patient to see if she wants [facility] or [facility]. Prefers to stay with [facility]. Transferred to [facility] to schedule. Asked that she call or send us a [employer] message with her appointment date with cardiology to be sure it's soon enough. Delmy Caballero RN We have nothing soon (Apr) with Dr. Lehman or Dr. Aguillon. If they need to be seen soon, they will need to go to [place] or if they need to stay in [facility]. Tere Robertson MA Patient seen in office today - reports over last week HR has been spiking to 150-200 intermittently lasting for 15min. BP is controlled during this time. Pt denies CP and occasional SOB during those episodes. Pt does have h/o POTS and previous radio repairer domestic was at [employer] has now left and she needs a new Rubber Flap Cutter. Can we see about getting her in with [facility] or [facility] please. Consult order placed. documented in this encounter [facility] 09-08-2023 Telephone encounter Note Called patient to see if she wants [facility] or [facility]. Prefers to stay with [facility]. Transferred to [place] to schedule. Asked that she call or send us a [employer] message with her appointment date with cardiology to be sure it's soon enough. Delmy Caballero RN [facility] 09-07-2023 Telephone encounter Note We have nothing soon (Apr) with Dr. Lehman or Dr. Aguillon. If they need to be seen soon, they will need to go to [facility] or if they need to stay in [facility]. Tere Robertson MA [facility] 09-07-2023 Progress note Formatting of t his note might be different from the original. DM- Pt doing well today. Denies Vaginal Bleeding, Leaking fluid, or contractions. Pt reports good movement. Pt reports elevated HR intermittently over last week or so- 150s-200s but BP well controlled. [employer] radio repairer domestic left- needs new radio repairer domestic for POTS. Discussed fluids, rest, and when to go to ER. Cardiology consult placed. RTO 4 weeks, growth us 4 weeks. Continue labetalol 200mg BID, ASA. CS 12/22/23 scheduled. Jen Murphy MD [facility] 09-07-2023 Miscellaneous Notes DM- Pt doing well today. Denies Vaginal Bleeding, Leaking fluid, or contractions. Pt reports good movement. Pt reports elevated HR intermittently over last week or so- 150s-200s but BP well controlled. [employer] radio repairer domestic left- needs new radio repairer domestic for POTS. Discussed fluids, rest, and when to go to ER. Cardiology consult placed. RTO 4 weeks, growth us 4 weeks. Continue labetalol 200mg BID, ASA. CS 12/22/23 scheduled. Jen Murphy MD documented in this encounter [facility] 09-07-2023 Telephone encounter Note Patient seen in office today - reports over last week HR has been spiking to 150-200 intermittently lasting for 15min. BP is controlled during this time. Pt denies CP and occasional SOB during those episodes. Pt does have h/o POTS and previous radio repairer domestic was at [employer] has now left and she needs a new Rubber Flap Cutter. Can we see about getting her in with [facility] or [facility] please. Consult order placed. [facility] Work Phone: 09-07-2023 Instructions Haley Barrera MA - 09/07/2023 4:03 PM EDT SEQUENTIAL SCREENINGS The [facility] offers sequential screenings for women who are [...] It will require an appointment with our research laboratory technician. This is not an ultrasound performed [...] the above symptoms, contact our office at [phone] and ask to speak with a nurse. After hours, you can call doctors registry at [phone] OR call [facility] at [phone] and ask to have the doctor high school physical education teacher paged. If you consider this an emergency, dial 01-07- or go to your nearest emergency department. NEED HELP? Are you dealing with a violent or abusive relationship? Are you a victim of rape or sexual assult? Call [facility] ([facility]) 24 hour Crisis Hotline: 400.467.7841 or 997-566-9158. MANUAL Your Guide to a Healthy manual is now on-line. Visit [email or web address] ancyGuide to download your free copy documented in this encounter [facility] 08-19-2023 Miscellaneous Notes Surgery sheet to DM to complete. Delmy Caballero RN Please block my 8:10 and 8:20 that day in office. If the 7:30 slot is open I will do it if not SW will have to do it at noon. Please place OR booking sheet in my office. Surgery schedule is open that day. documented in this encounter [facility] 08-16-2023 Miscellaneous Notes DM- Pt doing well [...] Jen Murphy MD documented in this encounter [facility] 08-16-2023 Instructions Haley Barrera MA - 08/16/2023 9:11 AM EDT SEQUENTIAL SCREENINGS The [facility] offers sequential screenings for women who are [...] It will require an appointment with our research laboratory technician. This is not an ultrasound performed [...] the above symptoms, contact our office at [phone] and ask to speak with a nurse. After hours, you can call [facility] at [phone] OR call [facility] at [phone] and ask to have the doctor high school physical education teacher paged. If you consider this an emergency, dial 9-1-2 or go to your nearest emergency department. NEED HELP? Are you dealing with a violent or abusive relationship? Are you a victim of rape or sexual assult? Call [facility] ([facility]) 24 hour Crisis Hotline: 293.593.7496 or 780-127-8279. MANUAL Your Guide to a Healthy manual is now on-line. Visit [email or web address] ancyGuide to download your free copy documented in this encounter [facility] 08-16-2023 History of Presen t illness Narrative Images from the original note were not included. Phone Technician [place] OUTPATIENT VISIT DATE August 16, 2023 OUTPATIENT VISIT TYPE CONSULT REFERRING PROVIDER: Ivett Palomo APRN.TELETYPE OPERATOR Recommendations from today's consultation will be conveyed through the electronic medical record. History of Present Illness: 33 year old at 20w2d with Estimated Date of Delivery: 01/01/24 presenting for consultation with Maternal- Medicine at the [facility] in the setting of history of previous intrauterine demise at 27 weeks, chronic hypertension on medication, history pre-eclampsia. She also has history of POTS, and complex migraines with recent concern for transient ischemic event (following with cerebrovascular clinic at [facility]). Clarisa is doing fairly well today, denies [...] migraine variant. She saw cerebrovascular clinic at [facility] with plan for low-dose aspirin, goal BP [...] on IV fluids Recommend follow up with radio repairer domestic. 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 Jasmina Collazo MD August 16, 2023 8:24 AM documented in this encounter [facility] 08-09-2023 Instructions Sneha Cardenas APRN.[facility] - 08/09/2023 4:43 PM EDT Images [...] taken early enough. documented in this encounter [facility] 08-02-2023 Note HNO ID: [id number] Author: SNEHA CARDENAS APRN.WILDER Service: ? Author Type: Nurse Practitioner Type: Progress Notes Filed: 08/15/2023 23:30 Note Text: CEREBROVASCULAR CENTER Initial Visit [facility] [address] PCP: Ottoniel Encarnacion, WILDER [address] [place] [address] CEREBROVASCULAR HISTORY Clarisa De La Cruz is [...] On 04/23/2024 she sought evaluation at local [facility] where blood pressure was noted to be elevated 153/99. She received headache cocktail with headache resolution afterwards. She has a history of hypertension following prior with preeclampsia for which she takes labetalol 50 mg daily at the time. She underwent CT/CTA imaging without any acute findings. She was transferred to [facility] for further evaluation. MRI brain imaging [...] 07/17/2018 FOr [facility] PORT Insertion AND removal x 2 FAMILY HISTORY Problem Relation Age of Onset No Known Problems Mother Hypertension Father other (Sloping Brain Syndrome) Father Hypertension Sister No Known Problems Sister Heart Attack Maternal Grandmother Stroke Maternal Grandmother 63 No Known Problems Maternal Grandfather Social His (more content not included)... [facility] 08-02-2023 History of Presen t illness Narrative CEREBROVASCULAR CENTER Initial Visit [facility] [address] PCP: Ottoniel Encarnacion, TELETYPE OPERATOR [facility] [place] [address] [place] [address] CEREBROVASCULAR HISTORY Clarisa De La Cruz is [...] On 04/23/2024 she sought evaluation [place] [facility] where blood pressure was noted to be elevated 153/99. She received headache cocktail with headache resolution afterwards. She has a history of hypertension following prior with preeclampsia for which she takes labetalol 50 mg daily at the time. She underwent CT/CTA imaging without any acute findings. She was transferred to [facility] for further evaluation. MRI brain imaging [...] which included preparing to see the patient, [id number] patient care, completing clinical documentation, obtaining and/or [...] access venous sinuses (prior CTA performed at [facility]). Imaging requested. Sneha Cardenas APRN.CNP 08/09/2023 documented in this encounter [facility] 07-29-2023 Telephone encounter Note Images from the original note were not included. OSH imaging/records received from [employer]: July 29, 2023 -Medical Hx & Imaging Reports available in Care Everywhere. OSH imaging/records received from [email or web address]: July 29, 2023 -Medical Hx & Imaging Reports available in Care Everywhere. Successfully faxed RICKEY via [employer]~ From: Sosa dias Last change on 07/29/2023 03:08:53 pm Sent on 07/29/2023 03:08:40 pm Completed [facility] 07-29-2023 Miscellaneous Notes Images from the original note were not included. OSH imaging/records received from [employer]: July 29, 2023 -Medical Hx & Imaging Reports available in Care Everywhere. OSH imaging/records received from [facility]: July 29, 2023 -Medical Hx & Imaging Reports available in Care Everywhere. Successfully faxed RICKEY via [employer]~ From: Sosa dias Last change on 07/29/2023 03:08:53 pm Sent on 07/29/2023 03:08:40 pm Completed documented in this encounter [facility] 07-25-2023 Miscellaneous Notes KIERSTEN-S: Clarisa De La [...] Geovanna Avilez APRN.CNM documented in this encounter [facility] 07-25-2023 Kaylee Carrillo LPN - 07/25/2023 3:37 PM EDT SEQUENTIAL SCREENINGS The [facility] offers sequential screenings for women who are [...] It will require an appointment with our research laboratory technician. This is not an ultrasound performed [...] the above symptoms, contact our office at [phone] and ask to speak with a nurse. After hours, you can call doctors registry at [phone] OR call [facility] at [phone] and ask to have the doctor high school physical education teacher paged. If you consider this an emergency, dial 9-1-1 or go to your nearest emergency department. NEED HELP? Are you dealing with a violent or abusive relationship? Are you a victim of rape or sexual assult? Call [facility] ([facility]) 24 hour Crisis Hotline: 636.961.5154 or 601-850-4337. MANUAL Your Guide to a Healthy manual is now on-line. Visit [email or web address] ancyGuide to download your free copy documented in this encounter [facility] 07-25-2023 Miscellaneous Notes Patient should see physician [...] cancel her appt. Clarisa never read the [employer] message. Her OB appointment should be with a physician with hypertension per CP's last message. See phone note. Can any physicians squeeze her in today or can she be rescheduled? Ivett Palomo APRN.CNP documented in this encounter [facility] 07-22-2023 Miscellaneous Notes The blood pressures are within normal ranges and not too low at this point. She may be feeling light headed due to standing on feet (which is common in ) Keep taking Labetalol and patient has next appointment on 07/25/23 with INVENTORY TRANSCRIBER- I recommend she see a physician. Please assist with scheduling. Rosalinda Bob APRN.CNM 16w5d Taking labetalol documented in this encounter [facility] 07-13-2023 Miscellaneous Notes S: Clarisa is a [...] weeks or sooner as needed. Ivett Palomo APRN.TELETYPE OPERATOR documented in this encounter [facility] 07-13-2023 Instructions Haley Barrera MA - 07/13/2023 3:34 PM EST SEQUENTIAL SCREENINGS The [facility] offers sequential screenings for women who are [...] It will require an appointment with our research laboratory technician. This is not an ultrasound performed [...] the above symptoms, contact our office at [phone] and ask to speak with a nurse. After hours, you can call doctors registry at [phone] OR call [facility] at [phone] and ask to have the doctor high school physical education teacher paged. If you consider this an emergency, dial 9-- or go to your nearest emergency department. NEED HELP? Are you dealing with a violent or abusive relationship? Are you a victim of rape or sexual assult? Call [facility] ([facility] 24 hour Crisis Hotline: 605.658.4029 or 127-759-1780. MANUAL Your Guide to a Healthy manual is now on-line. Visit [email or web address]/HealthyPregn ancyGuide to download your free copy documented in this encounter [facility] 07-01-2023 Miscellaneous Notes NT US appointment cancelled. Delmy Caballero, RN Called patient's as patient's phone not going through. Will have to cancel Tuesday's NT scan due to being too far along per fatuma Zapien. She will be 14 weeks. Patient's verbalizes understanding and will notify patient. She may call in with further questions. Please cancel NT. documented in this encounter [facility] 07-01-2023 Miscellaneous Notes Referral to [facility] Msg to [facility] team to assist with scheduling. 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 Discussed aneuploidy and carrier screening. Regarding aneuploidy [...] May consider in future. Reviewed midwifery and editorial assistant services that are available. ACTIVE PROBLEM LIST [...] Consent [ ] Contraception - [ ] Flame Brazing Machine Operator Third trimester (36-40 weeks): [ ] GBS [ ] Presentation - [ ] Scheduled [ ] yes - Hibiclens, pre-op instructions, CBC, T&S ordered [ ] no [ ] H&P With Care Elsewhere in Second Trimester - 07/01/2023 Comment: Transferring from [place]. Chronic Hypertension Affecting - 07/01/2023 Comment: Taking [...] Ischemic Attack) - 07/01/2023 Comment: Went to [place] ER on 04/23/2023 for a migraine, difficulty [...] - 07/01/2023 Comment: Recommend follow up with radio repairer domestic. Left Lower Quadrant Abdominal Pain - 07/01/2023 Comment: Reports random sharp pain to left side. Likely round ligament pain. To notify if persistent or worsening. No signs of acute abdomen - no guarding, rebound tenderness, or pain with palpation. Follow up in 3 days for NT scan. Plan for MFM consult and neurology consult. Ivett Palomo APRN.TELETYPE OPERATOR documented in this encounter [facility] 07-01-2023 Instructions Kaylee Yao LPN - 07/01/2023 2:51 PM EST Please select the following link to access the [facility] Your Guide to a Healthy . [email or web address] documented in this encounter [facility] 07-01-2023 History of Past i llness Narrative [...] of this encounter (statuses as of 07/14/2023) [facility] History of Past illness Narrative* Problem Noted [...] of this encounter (statuses as of 07/22/2023) [facility] of Past illness Narrative* Problem Noted [...] of this encounter (statuses as of 07/26/2023) [facility] of Past illness Narrative* Problem Noted [...] of this encounter (statuses as of 07/26/2023) [facility] of Past illness Narrative* Problem Noted [...] of this encounter (statuses as of 08/10/2023) [facility] of Past illness Narrative* Problem Noted [...] of this encounter (statuses as of 08/16/2023) [facility] of Past illness Narrative* Problem Noted [...] of this encounter (statuses as of 08/16/2023) [facility] of Past illness Narrative* Problem Noted [...] of this encounter (statuses as of 08/17/2023) [facility] of Past illness Narrative* Problem Noted [...] of this encounter (statuses as of 08/19/2023) [facility] of Past illness Narrative* Problem Noted [...] of this encounter (statuses as of 08/27/2023) [facility] NotePROCEDURE: ULTRASOUND 1ST TRIMESTER W TRANSVAGINAL, 05/23/2023, [...] cyst. Attention on follow-up recommended in this regard.[facility]12-17-2023 Progress note* CDU Provider Note - Jax [...] Auto 2.17 1.16 - 3.51 K/uL Abs Canadian Auto 0.69 0.22 - 0.87 K/uL Abs [...] Ref Range HCG (Quant) Serum 22.5 mIU/mL [facility] 7 - ED Result Value Ref Range [...] instructions, discharge summary, prescriptions, and ambulatory referrals. [facility] Work Phone: [phone]) 956-779212-17-2023 Miscellaneous Notes* CDU Provider Note - Jax [...] Auto 2.17 1.16 - 3.51 K/uL Abs Canadian Auto 0.69 0.22 - 0.87 K/uL Abs [...] Ref Range HCG (Quant) Serum 22.5 mIU/mL [facility] 7 - ED Result Value Ref Range [...] * CDU Provider Note - Danilo Mayo APRN-TELETYPE OPERATOR - 04/23/2023 10:00 PM EST DEPARTMENT OF [...] Laterality: N/A; Surgeon: Rich Santiago MD; Location: [facility] INTERVENTIONAL RADIOLOGY ([facility]) REMOVAL CENTRAL VENOUS ACCESS DEVICE TUNNELED W/ PORT PUMP Right 11/03/2018 Laterality: Right; Surgeon: Andrew Biggs MD; Location: [facility] INTERVENTIONAL RADIOLOGY ([facility]) INSERTION CVC TUNNELED W/ PORT PUMP N/A 11/03/2018 Laterality: N/A; Surgeon: Andrew Biggs MD; Location: [facility] INTERVENTIONAL RADIOLOGY ([facility]) INSERTION CVC TUNNELED N/A 03/30/2017 Laterality: N/A; Surgeon: Ayde Kearney MD; Location: [facility] INTERVENTIONAL RADIOLOGY ([facility]) MEDICATIONS GIVEN IN THE ED Medications [...] Auto 2.17 1.16 - 3.51 K/uL Abs Canadian Auto 0.69 0.22 - 0.87 K/uL Abs [...] PM [id number] Discharge instructions* Discharge Instructions* VERNELL Pina [...] as outlined in your discharge paperwork. CLINICAL KEEL PRESS OPERATOR If you need any further assistance with scheduling follow up care, please call the Clinical Cutting Machine Tender at . * Attachments The following attachments cannot be sent through Care Everywhere. * Transient Ischemic Attack: General Info ([place]) * Arachnoid Cysts: General Info ([place]) [facility] History of Present illness Narrative* Sneha Toth [...] workup - Local neurology follow up in [place] No further inpatient workup at this time. We will sign off. Signed, Sneha Toth MD PGY-4 Department of Neurology documented [facility] Emergency department Note* Winnie Esposito RN - 04/24/2023 6:34 AM EST Received report and reviewed patient's chart. Plan of care discussed with EDOU Attending and Midlevel Provider. This CM will remain available to assist with further patient needs. Winnie MARTINEZ Emergency Department Clinical Cutting Machine Tender [id number] Available via secure chat [facility] Emergency department Note* Winnie Esposito RN - 04/24/2023 6:34 AM EST Received report and reviewed patient's chart. Plan of care discussed with EDOU Attending and Midlevel Provider. This CM will remain available to assist with further patient needs. Winnie MARTINEZ Emergency Department Clinical Cutting Machine Tender [id number] Available via secure chat * Julio Bunn [...] Laterality: N/A; Surgeon: Rich Santiago MD; Location: [facility] INTERVENTIONAL RADIOLOGY ([facility]) REMOVAL CENTRAL VENOUS ACCESS DEVICE TUNNELED W/ PORT PUMP Right 11/03/2018 Laterality: Right; Surgeon: Andrew Biggs MD; Location: [facility] INTERVENTIONAL RADIOLOGY ([facility]) INSERTION CVC TUNNELED W/ PORT PUMP N/A 11/03/2018 Laterality: N/A; Surgeon: Andrew Biggs MD; Location: [facility] INTERVENTIONAL RADIOLOGY ([facility]) INSERTION CVC TUNNELED N/A 03/30/2017 Laterality: N/A; Surgeon: Ayde Kearney MD; Location: [facility] INTERVENTIONAL RADIOLOGY ([facility]) CURRENT MEDICATIONS No current [...] N/A; Surgeon: Rich Santiago MD; Location: [facility] INTERVENTIONAL RADIOLOGY ([facility]) REMOVAL CENTRAL VENOUS ACCESS DEVICE TUNNELED W/ PORT PUMP Right 11/03/2018 Laterality: Right; Surgeon: Andrew Biggs MD; Location: [facility] INTERVENTIONAL RADIOLOGY ([facility]) INSERTION CVC TUNNELED W/ PORT PUMP N/A 11/03/2018 Laterality: N/A; Surgeon: Andrew Biggs MD; Location: [facility] INTERVENTIONAL RADIOLOGY ([facility]) INSERTION CVC TUNNELED [...] weakness or tremor. Coordination: Coordination is intact. Qapyps-Jdmc-Vwnoei Test normal. Comments: Modified [facility] 0 ED [...] her classroom door. documented in this encounterOS[facility] Progress note* CDU Provider Note - VERNELL [...] Laterality: N/A; Surgeon: Rich Santiago MD; Location: [facility] INTERVENTIONAL RADIOLOGY ([facility]) REMOVAL CENTRAL VENOUS ACCESS DEVICE TUNNELED W/ PORT PUMP Right 11/03/2018 Laterality: Right; Surgeon: Andrew Biggs MD; Location: [facility] INTERVENTIONAL RADIOLOGY ([facility]) INSERTION CVC TUNNELED W/ PORT PUMP N/A 11/03/2018 Laterality: N/A; Surgeon: Andrew Biggs MD; Location: [facility] INTERVENTIONAL RADIOLOGY ([facility]) INSERTION CVC TUNNELED N/A 03/30/2017 Laterality: N/A; Surgeon: Ayde Kearney MD; Location: [facility] INTERVENTIONAL RADIOLOGY ([facility]) MEDICATIONS GIVEN IN THE ED Medications [...] Auto 2.17 1.16 - 3.51 K/uL Abs Canadian Auto 0.69 0.22 - 0.87 K/uL Abs [...] Prescription drug management. Electronically signed by: VERNELL oMrgan, 04/23/2023 10:00 PM [facility] Work Phone: [phone] 220-751312-16-2023 Physician Emergency department Note* Julio Bunn MD [...] Laterality: N/A; Surgeon: Rich Santiago MD; Location: [facility] INTERVENTIONAL RADIOLOGY ([facility]) REMOVAL CENTRAL VENOUS ACCESS DEVICE TUNNELED W/ PORT PUMP Right 11/03/2018 Laterality: Right; Surgeon: Andrew Biggs MD; Location: [facility] INTERVENTIONAL RADIOLOGY ([facility]) INSERTION CVC TUNNELED W/ PORT PUMP N/A 11/03/2018 Laterality: N/A; Surgeon: Andrew Biggs MD; Location: [facility] INTERVENTIONAL RADIOLOGY ([facility]) INSERTION CVC TUNNELED N/A 03/30/2017 Laterality: N/A; Surgeon: Ayde Kearney MD; Location: [facility] INTERVENTIONAL RADIOLOGY ([facility]) CURRENT MEDICATIONS No current facility-administered medications [...] ECG/medicine tests: ordered. Julio Bunn MD 04/23/23 3317 [facility] Work Phone: 1(149) 890-538212-16-2023 Physician Emergency department Note* Lexie Mendoza MD [...] Laterality: N/A; Surgeon: Rich Santiago MD; Location: [facility] INTERVENTIONAL RADIOLOGY ([facility]) REMOVAL CENTRAL VENOUS ACCESS DEVICE TUNNELED W/ PORT PUMP Right 11/03/2018 Laterality: Right; Surgeon: Andrew Biggs MD; Location: [facility] INTERVENTIONAL RADIOLOGY ([facility]) INSERTION CVC TUNNELED W/ PORT PUMP N/A 11/03/2018 Laterality: N/A; Surgeon: Andrew Biggs MD; Location: [facility] INTERVENTIONAL RADIOLOGY ([facility]) INSERTION CVC TUNNELED N/A 03/30/2017 Laterality: [...] weakness or tremor. Coordination: Coordination is intact. Rupqah-Wqdd-Jmrnoa Test normal. Comments: Modified [facility] 0 ED [...] ordered. Lexie Mendoza MD Resident 04/23/232026 [facility] Work Phone: [phone]) 495-945912-16-2023 Emergency department Note* Francisca Urrutia RN - [...] trying to unlock her classroom door. [facility]01[facility] History of Present illness Narrative* CHRISTOPHER Rogers - 06/05/2022 8:23 AM EST This note was created using GO-SIMter. Subjective Clarisa De La Cruz is a [...] - Low CHRISTOPHER Rogers documented in this encounter[facility]22 Miscellaneous Notes* Telephone Encounter - Becky Lara [...] - 10/08/2021 9:22 AM EDT Last visit ([facility]) 08/16/2019. Patient has not seen [...] advise and call patient. documented in this encounterMount [facility]el [facility]02-18-2022 NoteHNO ID: [id number] Author: ZIGGY Dubois Service: Anesthesiology Author Type: Dealer Relationship Manager Type: Anesthesia Procedure Notes Filed: 06/26/2021 12:57 [...] June 26, 2021 TIME: 12:57 PM CSN: [id number] [facility] Discharge Summary Admission on 01/26/2021 10:04 [...] symptoms at home. Patient was evaluated in [place] and PreE labs were negative. Reglan improved NANCE prior to [facility]. Upon arrival to [facility], patient was started on magnesium sulfate for seizure ppx. Ultimately, neurology was consulted for additional workup of patient's NANCE. An MRI/MRV/MRA was obtained and was negative, although a normal variant incomplete [place] was identified. PreE labs were [...] Clarisa De La Cruz Home Medication Instructions JULIO:[id number] Printed on:01/28/21 1301 Medication Information acetaminophen (TYLENOL) 500 MG tablet Take 1 tablet by mouth 4 times daily as needed for Pain aspirin 81 MG EC tablet Take 81 mg by mouth daily hgwntlknyu-vjjwpnxrnsqgb-ibpgholj (FIORICET, ESGIC) 50-325-40 MG per tablet Take [...] FGR, POTS Follow up appointment with your doctor/belt back operator - Keep next scheduled appointment Activity - Normal Activity Call your doctor/belt back operator if you have: - leaking fluid - vaginal bleeding - regular contractions: More than 6 contractions in one hour - decreased movement - worsening abdominal (belly) pain - headache, blurry vision, increased swelling, upper abdominal pain Dung Penn DO on 01/28/2021 at 1:01 [facility] noteNo assessment information availableWVan Wert County Hospital Work Phone: Evaluation note* Diagnosis Acute otitis externa of right ear, unspecified type- Primary Bacterial sinusitis Unspecified sinusitis (chronic) [facility]* Diagnosis TIA (transient ischemic attack)- Primary Unspecified transient cerebral ischemia Arachnoid cyst Cerebral cysts [facility]* Diagnosis TIA (transient ischemic attack) Unspecified transient cerebral ischemia [facility]* Diagnosis Encounter for supervision of high [...] in second trimester [facility]* Diagnosis Encounter for supervision of high risk in second trimester, antepartum- Primary 15 weeks gestation of state, incidental Chronic hypertension affecting [facility]* Diagnosis Encounter for supervision of high risk in second trimester, antepartum- Primary Chronic hypertension affecting History of intrauterine in previous 17 weeks gestation of state, incidental documented in this encounter [facility]* Diagnosis TIA (transient ischemic attack)- Primary Unspecified transient cerebral ischemia documented in this encounter [facility]* Diagnosis Migraine with aura and without status migrainosus, not intractable- Primary Migraine with aura, without mention of intractable migraine without mention of status migrainosus Encounter for supervision of high risk in second trimester, antepartum 13 weeks gestation of state, incidental TIA (transient ischemic attack) Unspecified transient cerebral ischemia documented in this encounter [facility]* Diagnosis Encounter for supervision of high risk in second trimester, antepartum- Primary Chronic hypertension affecting History of pre-eclampsia Personal history of other genital system and obstetric disorders TIA (transient ischemic attack) Unspecified transient cerebral ischemia History of intrauterine in previous 20 weeks gestation of state, incidental documented in this encounter [facility]* Diagnosis [...] for anatomic survey documented [facility]* Diagnosis Encounter for supervision of high risk in second trimester, antepartum- Primary Chronic hypertension affecting POTS (postural orthostatic tachycardia syndrome) Tachycardia, unspecified Tachycardia Tachycardia, unspecified 23 weeks gestation of state, incidental [facility]* Diagnosis Supervision of high risk in second trimester- Primary Unspecified high-risk Vaginal discharge Leukorrhea, not specified as infective 24 weeks gestation of state, incidental Chronic hypertension affecting [facility]* Diagnosis Chronic hypertension complicating or reason for care during childbirth- Primary Benign essential hypertension complicating , childbirth, and the puerperium, unspecified as to episode of care History of intrauterine in previous Supervision of high risk in second trimester Unspecified high-risk Need for vaccination Need for prophylactic vaccination and inoculation against unspecified single disease documented in this encounter [facility]* Diagnosis History of intrauterine in previous - Primary Encounter for supervision of high risk in second trimester, antepartum Chronic hypertension affecting POTS (postural orthostatic tachycardia syndrome) Tachycardia, unspecified Tachycardia Tachycardia, unspecified 28 weeks gestation of state, incidental documented in this encounter [facility]* Diagnosis History of intrauterine in previous - Primary Encounter for supervision of high risk in second trimester, antepartum Chronic hypertension affecting POTS (postural orthostatic tachycardia syndrome) Tachycardia, unspecified documented in this encounter [facility]* Diagnosis 29 weeks gestation of - Primary state, incidental Encounter for supervision of high risk in second trimester, antepartum Chronic hypertension affecting POTS (postural orthostatic tachycardia syndrome) Tachycardia, unspecified [facility]* Diagnosis History of intrauterine in previous - Primary Chronic hypertension complicating or reason for care during childbirth Benign essential hypertension complicating , childbirth, and the puerperium, unspecified as to episode of care 29 weeks gestation of state, incidental documented in this encounter [facility]* Diagnosis 29 weeks gestation of - Primary state, incidental Encounter for supervision of high risk in second trimester, antepartum Chronic hypertension affecting History of intrauterine in previous [facility]* Diagnosis 30 weeks gestation of - Primary state, incidental Encounter for supervision of high risk in second trimester, antepartum Chronic hypertension affecting [facility]* Diagnosis Hypertension affecting , third trimester- Primary Chronic hypertension complicating or reason for care during childbirth Benign essential hypertension complicating , childbirth, and the puerperium, unspecified as to episode of care History of intrauterine in previous documented [facility]* Diagnosis Encounter for supervision of high risk in second trimester, antepartum- Primary 30 weeks gestation of state, incidental Chronic hypertension affecting History of intrauterine in previous documented in this encounter [facility]* Diagnosis Migraine with aura and without status migrainosus, not intractable Migraine with aura, without mention of intractable migraine without mention of status migrainosus documented in this encounter [facility]* Diagnosis 31 weeks gestation of - Primary state, incidental Encounter for supervision of high risk in third trimester, antepartum History of intrauterine in previous documented in this encounter [facility]* Diagnosis Chronic hypertension complicating or reason for care during childbirth Benign essential hypertension complicating , childbirth, and the puerperium, unspecified as to episode of care History of intrauterine in previous documented in this encounter [facility]* Diagnosis High-risk in third trimester- Primary 31 weeks gestation of state, incidental Chronic hypertension complicating or reason for care during childbirth Benign essential hypertension complicating , childbirth, and the puerperium, unspecified as to episode of care documented in this encounter [facility]* Diagnosis Chronic hypertension complicating or reason for care during childbirth- Primary Benign essential hypertension complicating , childbirth, and the puerperium, unspecified as to episode of care High-risk in third trimester History of intrauterine in previous 32 weeks gestation of state, incidental documented in this encounter [facility]* Diagnosis 32 weeks gestation of - Primary state, incidental Chronic hypertension complicating or reason for care during childbirth Benign essential hypertension complicating , childbirth, and the puerperium, unspecified as to episode of care History of intrauterine in previous documented in this encounter [facility]* Diagnosis Chronic hypertension affecting - Primary History of intrauterine in previous documented in this encounter [facility]* Diagnosis 33 weeks gestation of - Primary state, incidental Chronic hypertension affecting High-risk in third trimester documented in this encounter [facility]* Diagnosis [...] in third trimester [facility]* Diagnosis 34 weeks gestation of - Primary state, incidental High-risk in third trimester Chronic hypertension complicating or reason for care during childbirth Benign essential hypertension complicating , childbirth, and the puerperium, unspecified as to episode of care documented in this encounter [facility]* Diagnosis History of intrauterine in previous - Primary Chronic hypertension complicating or reason for care during childbirth Benign essential hypertension complicating , childbirth, and the puerperium, unspecified as to episode of care 34 weeks gestation of state, incidental [facility]* Diagnosis High-risk in third trimester- Primary Chronic hypertension complicating or reason for care during childbirth Benign essential hypertension complicating , childbirth, and the puerperium, unspecified as to episode of care History of intrauterine in previous Chronic hypertension affecting 34 weeks gestation of state, incidental [facility] Diagnosis Chronic hypertension complicating or reason for care during childbirth- Primary Benign essential hypertension complicating , childbirth, and the puerperium, unspecified as to episode of care History of intrauterine in previous 35 weeks gestation of state, incidental [facility]* Diagnosis Postoperative pain- Primary Other acute postoperative pain Hypertension in , preeclampsia, delivered Mild or unspecified pre-eclampsia, with delivery documented in this encounter [facility]* Diagnosis S/P section- Primary Other postprocedural status Chronic hypertension [facility]* Diagnosis Encounter for supervision of [...] transient cerebral ischemia documented in this encounter [facility] note* Diagnosis Dys[facility]- [facility] Diagnosis Dysuria- Primary documented in this encounter [facility] note* Diagnosis Migraine with aura and without status migrainosus, not intractable Migraine with aura, without mention of intractable migraine without mention of status migrainosus [facility]* Diagnosis care and examination- Primary Routine follow-up Encounter for screening for malignant neoplasm of cervix Screening for malignant neoplasm of the cervix [facility]* Diagnosis TIA (transient ischemic attack)- Primary Unspecified transient cerebral ischemia [facility] Diagnosis Sinobronchitis- Primary Unspecified sinusitis (chronic) documented in this encounter [facility] note* Diagnosis Abnormal uterine bleeding (AUB)- Primary Dysmenorrhea documented in this encounter [facility] note* Diagnosis Abnormal uterine bleeding (AUB)- Primary Dysmenorrhea Subseptate uterus Septate uterus Adenomyosis of uterus documented in this encounter [facility] note* Diagnosis Adenomyosis of uterus Irregular menstruation Irregular menstrual cycle [facility] Diagnosis Abnormal uterine bleeding (AUB)- Primary documented in this encounter [facility] note* Diagnosis Abnormal uterine bleeding (AUB)- Primary Adenomyosis of uterus Irregular menstruation Irregular menstrual cycle documented in this encounter [facility] for referral (narrative)* Diagnostic Procedure Only (Routine) - Authorized Specialty Diagnoses / Procedures Referred By Ivelisse lee Referred To Contact [facility] Diagnoses 23 weeks gestation of Encounter for supervision of high risk in second trimester, antepartum Chronic hypertension affecting POTS (postural orthostatic tachycardia syndrome) Tachycardia Procedures OBSTETRIC ULTRASOUND WHI US PREG UTERUS AFTER 1ST TRIMEST GESTATION Jen Arredondo MD [address] [place] [address] [address] Referral ID Status Reason Start Date Expiration Date Visits Requested Visits Authorized [id number] Authorized Auto-Generat ed Referral 09/07/2023 09/06/2024 8 1 * Consult, Test, Treat (Routine) - Authorized Specialty Diagnoses / Procedures Referred By Contac t Referred To Contact Cardiology Diagnoses 23 weeks gestation of Chronic hypertension affecting POTS (postural orthostatic tachycardia syndrome) Tachycardia Procedures CONSULT TO [facility]ARDIOLOGY OFFICE[facility] 60 [facility]ES Jen Arredondo MD [address] [place] [address] Referral ID Status Reason Start Date Expiration Date Visits Requested Visits Authorized [id number] Authorized PCP Requested Referral 09/07/2023 09/06/2024 1 1 [facility] for referral (narrative)* Diagnostic Procedure Only (Routine) - Authorized Specialty Diagnoses / Procedures Referred By Ivelisse t Referred To Contact [facility] Diagnoses Chronic hypertension complicating or reason for care during childbirth History of intrauterine in previous Supervision of high risk in second trimester Procedures BIOPHYSICAL PROFILE US [facility] BIOPHYSICAL PROFILE NON-STRESS TESTING Jen Arredondo MD [address] [place] [address] [facility] [address] [place] [address] Referral ID Status Reason Start Date Expiration Date Visits Requested Visits Authorized [id number] Authorized Auto-Generat ed Referral 10/11/2023 10/10/2024 15 1 * Outpatient Procedure (Routine) - Authorized Specialty Diagnoses / Procedures Referred By Ivelisse t Referred To Contact [facility] Diagnoses Chronic hypertension complicating or reason for care during childbirth History of intrauterine in previous Supervision of high risk in second trimester Procedures NON-STRESS TEST NON-STRESS TEST Jen Arredondo MD [address] [place] [address] [address] Referral ID Status Reason Start Date Expiration Date Visits Requested Visits Authorized [id number] Authorized Auto-Generat ed Referral 10/11/2023 10/10/2024 15 1 [facility] Diagnostic Procedure Only (Routine) - Closed Specialty Diagnoses / Procedures Referred By Contac t Referred To Contact [facility] Diagnoses Abnormal uterine bleeding (AUB) Dysmenorrhea Procedures PELVIC US WHI US PELVIC NONOBSTETRIC REAL-TIME IMAGE COMPLETE Geovanna Avilez APRN.CNM [address] [place] [address] Phone: tel: fax: [address] [phone] Referral ID Status Reason Start Date Expiration Date V isits Requested Visits Authorized [id number] Closed Auto-Generate d Referral 10/22/2024 10/22/2025 1 1 [facility] Summary Purpose Family History No Family History Records Found Relationship Condition Age at Onset Recorded Date/T chiquis father Diabetes mellitus Unknown Hypertension Unknown Advance Directives No Advanced Directives Records FoundDocuments on File Type Date Recorded 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 Advance Directive(s) 06/26/2021 9:55 AM Advance Directive(s) 06/05/2021 12:55 PM Advance Directive Response Recorded Date/ Time Advance Directives No July 17 10:00am Living Will No February 11 4:25am Power of Workplace Trainer And Assessor No February 11 4:25am Advance Directive Response Recorded Date/ Time Advance Directives No July 17 11:00am Living Will No February 11 5:25am Power of Workplace Trainer And Assessor No February 11 5:25am Reason for Referral Specialty Diagnoses / Procedures Referred By Contac t Referred To Contact Diagnoses TIA (transient ischemic attack) Procedures ECHOCARDIOGRAM IL ECHO HEART XTHORACIC,COMPLETE W DOPPLER Jean Govea, BLACK LEATHER BUFFER-TELETYPE OPERATOR [address] [place] [address] Referral ID Status Reason Start Date Expiration Date V isits Requested Visits Authorized [id number] Auth Not Needed 04/24/2023 05/18/2024 1 1 Specialty Diagnoses / Procedures Referred By Contac t Referred To Contact Neurology Diagnoses TIA (transient ischemic attack) Jean Govea BLACK LEATHER BUFFER-TELETYPE OPERATOR [address] [place] [address] Referral ID Status Reason Start Date Expiration Date V isits Requested Visits Authorized [id number] New Request 04/24/2023 05/18/2024 1 1 Specialty Diagnoses / Procedures Referred By Contac t Referred To Contact Procedures ECG Julio Bunn MD [address] [place] [address] Referral ID Status Reason Start Date Expiration Date V isits Requested Visits Authorized [id number] New Request 04/23/2023 05/17/2024 1 1 Specialty Diagnoses / Procedures Referred By Contac t Referred To Contact Echocardiography Diagnoses TIA (transient ischemic attack) Procedures ECHOCARDIOGRAM IL ECHO HEART XTHORACIC,COMPLETE W DOPPLER Jean Govea, BLACK LEATHER BUFFER-TELETYPE OPERATOR [address] [place] [address] Echocardiography [place] [address] [place] [address] Referral ID Status Reason Start Date Expiration Date Visits Re quested Visits Authorized [id number] Closed 04/24/2023 05/18/2024 1 1 Specialty Diagnoses / Procedures Referred By Contac t Referred To Contact Diagnoses Encounter for supervision of high risk in second trimester, antepartum 13 weeks gestation of Chronic hypertension affecting History of intrauterine in previous TIA (transient ischemic attack) Procedures CONSULT TO MATERNAL MEDI OFFICE/OUTPATIENT [facility] 60 MINUTES Ivett Palomo APRN.TELETYPE OPERATOR [address] [place] [address] Referral ID Status Reason Start Date Expiration Date Visits Requested Visits Authorized [id number] Authorized PCP Requested Referral Auto-Generate d Referral 07/01/2023 06/30/2024 1 1 Specialty Diagnoses / Procedures Referred By Contac t Referred To Contact [facility] Diagnoses Encounter for supervision of high risk in second trimester, antepartum Procedures NUCHAL TRANSLUCENCY WHI US NUCHAL TRANSLUCENCY 1ST GESTATION Ivett Palomo APRN.TELETYPE OPERATOR [address] [place] [address] [address] Referral ID Status Reason Start Date Expiration Date Visits Requested Visits Authorized [id number] Authorized Auto-Generat ed Referral 07/01/2023 06/30/2024 1 1 Specialty Diagnoses / Procedures Referred By Contac t Referred To Contact Neurology Diagnoses Encounter for supervision of high risk in second trimester, antepartum 13 weeks gestation of TIA (transient ischemic attack) Procedures CONSULT TO NEUROLOGY OFFICE/OUTPATIENT [facility] 60 MINUTES Ivett Palomo APRN.TELETYPE OPERATOR [address] [place] [address] Referral ID Status Reason Start Date Expiration Date Visits Requested Visits Authorized [id number] Authorized PCP Requested Referral 07/01/2023 06/30/2024 1 1 Specialty Diagnoses / Procedures Referred By Contac t Referred To Contact [facility] Diagnoses Encounter for supervision of high risk in second trimester, antepartum 13 weeks gestation of Procedures OBSTETRIC ULTRASOUND WHI US PREG UTERUS AFTER 1ST TRIMEST GESTATION Ivett Palomo APRN.TELETYPE OPERATOR [address] [place] [address] [address] Referral ID Status Reason Start Date Expiration Date Visits Requested Visits Authorized [id number] Pending Review Auto-Generat ed Referral 07/01/2023 06/30/2024 1 1 Specialty Diagnoses / Procedures Referred By Contac t Referred To Contact Neurology Diagnoses Migraine with aura and without status migrainosus, not intractable Procedures CONSULT TO NEUROLOGY OFFICE/OUTPATIENT [facility] 60 MINUTES Sneha Cardenas APRN.TELETYPE OPERATOR [address] [place] [address] Referral ID Status Reason Start Date Expiration Date Visits Requested Visits Authorized [id number] Authorized PCP Requested Referral 08/02/2023 08/01/2024 1 1 Specialty Diagnoses / Procedures Referred By Contac t Referred To Contact Diagnoses Migraine with aura and without status migrainosus, not intractable Procedures PROVIDER ORDERED FOLLOW UP OFFICE/OUTPATIENT [facility] [address] [place] [address] [place] [address] Referral ID Status Reason Start Date Expiration Date Visits Requested Visits Authorized [id number] Authorized PCP Requested Referral 01/08/2024 10/24/2024 1 1 Chief Complaint and Reason for Visit Chief Complaint R/O LABOR Additional Source Comments INFORMATION SOURCE (unrecogn ized section and content) DATE CREATED AUTHOR 12/04/2020 [facility] DATE CREATED AUTHOR AUTHOR'S ORGANIZ ATION 02/12/2021 [facility] DATE CREATED AUTHOR AUTHOR'S ORGANIZ ATION 03/14/2021 [facility] DATE CREATED AUTHOR AUTHOR'S ORGANIZ ATION 05/21/2021 [facility] DATE CREATED AUTHOR AUTHOR'S ORGANIZ ATION 07/01/2021 [facility] DATE CREATED AUTHOR AUTHOR'S ORGANIZ ATION 06/16/2023 [facility] DATE CREATED AUTHOR AUTHOR'S ORGANIZ ATION 07/24/2023 [facility] DATE CREATED AUTHOR AUTHOR'S ORGANIZ ATION 08/16/2023 [facility] DATE CREATED AUTHOR AUTHOR'S ORGANIZ ATION 04/10/2024 [facility] DATE CREATED AUTHOR AUTHOR'S ORGANIZ ATION 02/12/2025 [facility] DATE CREATED AUTHOR AUTHOR'S ORGANIZ ATION [facility]/20[facility] Source Comments (unrecognize d section and content) In the event this informatio n is protected by the Federal Confidentiality of Alcohol and Drug Abuse Patient Records regulations: The Federal rules restrict any use of the information to criminally investigate or prosecute any alcohol or drug abuse patient.[facility] the event this information is protected by the Federal Confidentiality of Alcohol and Drug Abuse Patient Records regulations: The Federal rules restrict any use of the information to criminally investigate or prosecute any alcohol or drug abuse patient.[facility] the event this information is protected by the Federal Confidentiality of Alcohol and Drug Abuse Patient Records regulations: The Federal rules restrict any use of the information to criminally investigate or prosecute any alcohol or drug abuse patient.[facility] the event this information is protected by the Federal Confidentiality of Alcohol and Drug Abuse Patient Records regulations: The Federal rules restrict any use of the information to criminally investigate or prosecute any alcohol or drug abuse patient.[facility] the event this information is protected by the Federal Confidentiality of Alcohol and Drug Abuse Patient Records regulations: The Federal rules restrict any use of the information to criminally investigate or prosecute any alcohol or drug abuse patient.[facility] System[facility] the event this information is protected by the Federal Confidentiality of Alcohol and Drug Abuse Patient Records regulations: The Federal rules restrict any use of the information to criminally investigate or prosecute any alcohol or drug abuse patient.[facility] System[facility] the event this information is protected by the Federal Confidentiality of Alcohol and Drug Abuse Patient Records regulations: The Federal rules restrict any use of the information to criminally investigate or prosecute any alcohol or drug abuse patient.[facility] System[facility] the event this information is protected by the Federal Confidentiality of Alcohol and Drug Abuse Patient Records regulations: The Federal rules restrict any use of the information to criminally investigate or prosecute any alcohol or drug abuse patient.[facility] SystemIn the event this information is protected by the Federal Confidentiality of Alcohol and Drug Abuse Patient Records regulations: The Federal rules restrict any use of the information to criminally investigate or prosecute any alcohol or drug abuse patient.[facility] System[facility] the event this information is protected by the Federal Confidentiality of Alcohol and Drug Abuse Patient Records regulations: The Federal rules restrict any use of the information to criminally investigate or prosecute any alcohol or drug abuse patient.[facility] System[facility] the event this information is protected by the Federal Confidentiality of Alcohol and Drug Abuse Patient Records regulations: The Federal rules restrict any use of the information to criminally investigate or prosecute any alcohol or drug abuse patient.[facility] System[facility] the event this information is protected by the Federal Confidentiality of Alcohol and Drug Abuse Patient Records regulations: The Federal rules restrict any use of the information to criminally investigate or prosecute any alcohol or drug abuse patient.[facility] System[facility] the event this information is protected by the Federal Confidentiality of Alcohol and Drug Abuse Patient Records regulations: The Federal rules restrict any use of the information to criminally investigate or prosecute any alcohol or drug abuse patient.[facility] System[facility] the event this information is protected by the Federal Confidentiality of Alcohol and Drug Abuse Patient Records regulations: The Federal rules restrict any use of the information to criminally investigate or prosecute any alcohol or drug abuse patient.[facility] the event this information is protected by the Federal Confidentiality of Alcohol and Drug Abuse Patient Records regulations: The Federal rules restrict any use of the information to criminally investigate or prosecute any alcohol or drug abuse patient.[facility] System[facility] the event this information is protected by the Federal Confidentiality of Alcohol and Drug Abuse Patient Records regulations: The Federal rules restrict any use of the information to criminally investigate or prosecute any alcohol or drug abuse patient.[facility] System[facility] the event this information is protected by the Federal Confidentiality of Alcohol and Drug Abuse Patient Records regulations: The Federal rules restrict any use of the information to criminally investigate or prosecute any alcohol or drug abuse patient.[facility] SystemIn the event this information is protected by the Federal Confidentiality of Alcohol and Drug Abuse Patient Records regulations: The Federal rules restrict any use of the information to criminally investigate or prosecute any alcohol or drug abuse patient.[facility] SystemIn the event this information is protected by the Federal Confidentiality of Alcohol and Drug Abuse Patient Records regulations: The Federal rules restrict any use of the information to criminally investigate or prosecute any alcohol or drug abuse patient.[facility] SystemIn the event this information is protected by the Federal Confidentiality of Alcohol and Drug Abuse Patient Records regulations: The Federal rules restrict any use of the information to criminally investigate or prosecute any alcohol or drug abuse patient.[facility] SystemIn the event this information is protected by the Federal Confidentiality of Alcohol and Drug Abuse Patient Records regulations: The Federal rules restrict any use of the information to criminally investigate or prosecute any alcohol or drug abuse patient.[facility] System[facility] the event this information is protected by the Federal Confidentiality of Alcohol and Drug Abuse Patient Records regulations: The Federal rules restrict any use of the information to criminally investigate or prosecute any alcohol or drug abuse patient.[facility] System[facility] the event this information is protected by the Federal Confidentiality of Alcohol and Drug Abuse Patient Records regulations: The Federal rules restrict any use of the information to criminally investigate or prosecute any alcohol or drug abuse patient.[facility] SystemIn the event this information is protected by the Federal Confidentiality of Alcohol and Drug Abuse Patient Records regulations: The Federal rules restrict any use of the information to criminally investigate or prosecute any alcohol or drug abuse patient.[facility] SystemIn the event this information is protected by the Federal Confidentiality of Alcohol and Drug Abuse Patient Records regulations: The Federal rules restrict any use of the information to criminally investigate or prosecute any alcohol or drug abuse patient.[facility] SystemIn the event this information is protected by the Federal Confidentiality of Alcohol and Drug Abuse Patient Records regulations: The Federal rules restrict any use of the information to criminally investigate or prosecute any alcohol or drug abuse patient.[facility] SystemIn the event this information is protected by the Federal Confidentiality of Alcohol and Drug Abuse Patient Records regulations: The Federal rules restrict any use of the information to criminally investigate or prosecute any alcohol or drug abuse patient.[facility] SystemIn the event this information is protected by the Federal Confidentiality of Alcohol and Drug Abuse Patient Records regulations: The Federal rules restrict any use of the information to criminally investigate or prosecute any alcohol or drug abuse patient.[facility] SystemIn the event this information is protected by the Federal Confidentiality of Alcohol and Drug Abuse Patient Records regulations: The Federal rules restrict any use of the information to criminally investigate or prosecute any alcohol or drug abuse patient.[facility] SystemIn the event this information is protected by the Federal Confidentiality of Alcohol and Drug Abuse Patient Records regulations: The Federal rules restrict any use of the information to criminally investigate or prosecute any alcohol or drug abuse patient.[facility] SystemIn the event this information is protected by the Federal Confidentiality of Alcohol and Drug Abuse Patient Records regulations: The Federal rules restrict any use of the information to criminally investigate or prosecute any alcohol or drug abuse patient.[facility] SystemIn the event this information is protected by the Federal Confidentiality of Alcohol and Drug Abuse Patient Records regulations: The Federal rules restrict any use of the information to criminally investigate or prosecute any alcohol or drug abuse patient.[facility] SystemIn the event this information is protected by the Federal Confidentiality of Alcohol and Drug Abuse Patient Records regulations: The Federal rules restrict any use of the information to criminally investigate or prosecute any alcohol or drug abuse patient.[facility] SystemIn the event this information is protected by the Federal Confidentiality of Alcohol and Drug Abuse Patient Records regulations: The Federal rules restrict any use of the information to criminally investigate or prosecute any alcohol or drug abuse patient.[facility] SystemIn the event this information is protected by the Federal Confidentiality of Alcohol and Drug Abuse Patient Records regulations: The Federal rules restrict any use of the information to criminally investigate or prosecute any alcohol or drug abuse patient.[facility] SystemIn the event this information is protected by the Federal Confidentiality of Alcohol and Drug Abuse Patient Records regulations: The Federal rules restrict any use of the information to criminally investigate or prosecute any alcohol or drug abuse patient.[facility] SystemIn the event this information is protected by the Federal Confidentiality of Alcohol and Drug Abuse Patient Records regulations: The Federal rules restrict any use of the information to criminally investigate or prosecute any alcohol or drug abuse patient.[facility] SystemIn the event this information is protected by the Federal Confidentiality of Alcohol and Drug Abuse Patient Records regulations: The Federal rules restrict any use of the information to criminally investigate or prosecute any alcohol or drug abuse patient.[facility] SystemIn the event this information is protected by the Federal Confidentiality of Alcohol and Drug Abuse Patient Records regulations: The Federal rules restrict any use of the information to criminally investigate or prosecute any alcohol or drug abuse patient.[facility] SystemIn the event this information is protected by the Federal Confidentiality of Alcohol and Drug Abuse Patient Records regulations: The Federal rules restrict any use of the information to criminally investigate or prosecute any alcohol or drug abuse patient.[facility] SystemIn the event this information is protected by the Federal Confidentiality of Alcohol and Drug Abuse Patient Records regulations: The Federal rules restrict any use of the information to criminally investigate or prosecute any alcohol or drug abuse patient.[facility] SystemIn the event this information is protected by the Federal Confidentiality of Alcohol and Drug Abuse Patient Records regulations: The Federal rules restrict any use of the information to criminally investigate or prosecute any alcohol or drug abuse patient.[facility] SystemIn the event this information is protected by the Federal Confidentiality of Alcohol and Drug Abuse Patient Records regulations: The Federal rules restrict any use of the information to criminally investigate or prosecute any alcohol or drug abuse patient.[facility] SystemIn the event this information is protected by the Federal Confidentiality of Alcohol and Drug Abuse Patient Records regulations: The Federal rules restrict any use of the information to criminally investigate or prosecute any alcohol or drug abuse patient.[facility] SystemIn the event this information is protected by the Federal Confidentiality of Alcohol and Drug Abuse Patient Records regulations: The Federal rules restrict any use of the information to criminally investigate or prosecute any alcohol or drug abuse patient.[facility] SystemIn the event this information is protected by the Federal Confidentiality of Alcohol and Drug Abuse Patient Records regulations: The Federal rules restrict any use of the information to criminally investigate or prosecute any alcohol or drug abuse patient.[facility] SystemIn the event this information is protected by the Federal Confidentiality of Alcohol and Drug Abuse Patient Records regulations: The Federal rules restrict any use of the information to criminally investigate or prosecute any alcohol or drug abuse patient.[facility] SystemIn the event this information is protected by the Federal Confidentiality of Alcohol and Drug Abuse Patient Records regulations: The Federal rules restrict any use of the information to criminally investigate or prosecute any alcohol or drug abuse patient.[facility] SystemIn the event this information is protected by the Federal Confidentiality of Alcohol and Drug Abuse Patient Records regulations: The Federal rules restrict any use of the information to criminally investigate or prosecute any alcohol or drug abuse patient.[facility] SystemIn the event this information is protected by the Federal Confidentiality of Alcohol and Drug Abuse Patient Records regulations: The Federal rules restrict any use of the information to criminally investigate or prosecute any alcohol or drug abuse patient.[facility] SystemIn the event this information is protected by the Federal Confidentiality of Alcohol and Drug Abuse Patient Records regulations: The Federal rules restrict any use of the information to criminally investigate or prosecute any alcohol or drug abuse patient.[facility] SystemIn the event this information is protected by the Federal Confidentiality of Alcohol and Drug Abuse Patient Records regulations: The Federal rules restrict any use of the information to criminally investigate or prosecute any alcohol or drug abuse patient.[facility] SystemIn the event this information is protected by the Federal Confidentiality of Alcohol and Drug Abuse Patient Records regulations: The Federal rules restrict any use of the information to criminally investigate or prosecute any alcohol or drug abuse patient.[facility] SystemIn the event this information is protected by the Federal Confidentiality of Alcohol and Drug Abuse Patient Records regulations: The Federal rules restrict any use of the information to criminally investigate or prosecute any alcohol or drug abuse patient.[facility] SystemIn the event this information is protected by the Federal Confidentiality of Alcohol and Drug Abuse Patient Records regulations: The Federal rules restrict any use of the information to criminally investigate or prosecute any alcohol or drug abuse patient.[facility] SystemIn the event this information is protected by the Federal Confidentiality of Alcohol and Drug Abuse Patient Records regulations: The Federal rules restrict any use of the information to criminally investigate or prosecute any alcohol or drug abuse patient.[facility] SystemIn the event this information is protected by the Federal Confidentiality of Alcohol and Drug Abuse Patient Records regulations: The Federal rules restrict any use of the information to criminally investigate or prosecute any alcohol or drug abuse patient.[facility] SystemIn the event this information is protected by the Federal Confidentiality of Alcohol and Drug Abuse Patient Records regulations: The Federal rules restrict any use of the information to criminally investigate or prosecute any alcohol or drug abuse patient.[facility] SystemIn the event this information is protected by the Federal Confidentiality of Alcohol and Drug Abuse Patient Records regulations: The Federal rules restrict any use of the information to criminally investigate or prosecute any alcohol or drug abuse patient.[facility] SystemIn the event this information is protected by the Federal Confidentiality of Alcohol and Drug Abuse Patient Records regulations: The Federal rules restrict any use of the information to criminally investigate or prosecute any alcohol or drug abuse patient.[facility] SystemIn the event this information is protected by the Federal Confidentiality of Alcohol and Drug Abuse Patient Records regulations: The Federal rules restrict any use of the information to criminally investigate or prosecute any alcohol or drug abuse patient.[facility] SystemIn the event this information is protected by the Federal Confidentiality of Alcohol and Drug Abuse Patient Records regulations: The Federal rules restrict any use of the information to criminally investigate or prosecute any alcohol or drug abuse patient.[facility] SystemIn the event this information is protected by the Federal Confidentiality of Alcohol and Drug Abuse Patient Records regulations: The Federal rules restrict any use of the information to criminally investigate or prosecute any alcohol or drug abuse patient.[facility] Reason for Visit (unrecogniz ed section and content) Reason Comments US Specialty Diagnoses / Procedures Referred By Ivelisse lee Referred To Contact [facility] Diagnoses Chronic hypertension complicating or reason for care during childbirth History of intrauterine in previous Supervision of high risk in second trimester Procedures BIOPHYSICAL PROFILE US WHI BIOPHYSICAL PROFILE NON-STRESS TESTING Jen Arredondo MD [address] [place] [address] [facility] [employer] [place] [address] Referral ID Status Reason Start Date Expiration Date V isits Requested Visits Authorized [id number] Closed Auto-Generate d Referral 10/11/2023 10/10/2024 15 1 Reason Onset Date Comments Care 10/14/2023 Specialty Diagnoses / Procedures Referred By Ivelisse lee Referred To Contact [facility] Diagnoses 23 weeks gestation of Encounter for supervision of high risk in second trimester, antepartum Chronic hypertension affecting POTS (postural orthostatic tachycardia syndrome) Tachycardia Procedures OBSTETRIC ULTRASOUND WHI US PREG UTERUS AFTER 1ST TRIMEST GESTATION Jen Arredondo MD [address] [place] [address] [facility] [address] [place] [address] Referral ID Status Reason Start Date Expiration Date V isits Requested Visits Authorized [id number] Closed Auto-Generate d Referral 09/07/2023 09/06/2024 8 1 Reason Comments Patient Question Patient Update Reason Comments Ear Pain With drainage and si nus problem x 2 weeks Specialty Diagnoses / Procedures Referred By Contac t Referred To Contact Echocardiography Diagnoses TIA (transient ischemic attack) Procedures ECHOCARDIOGRAM [place] ECHO HEART XTHORACIC,COMPLETE W DOPPLER Jean Govea, BLACK LEATHER BUFFER-TELETYPE OPERATOR [address] [place] [address] E[facility]ocardi[facility] [place] [address] [place] [address] Referral ID Status Reason Start Date Expiration Date Visits Re quested Visits Authorized [id number] Closed 04/24/2023 05/18/2024 1 1 Reason Comments [...] MINUTES Ivett Palomo APRN.CNP [address] [address] Referral ID Status Reason Start Date Expiration Date V isits Requested Visits Authorized [id number] Closed PCP Requested Referral 07/01/2023 06/30/2024 1 [...] Ivett Palomo APRN.CNP [address] [place] [address] Referral ID Status Reason Start Date Expiration Date V isits Requested Visits Authorized [id number] Closed PCP Requested Referral Auto-Generated Referral 07/01/2023 [...] not intractable Procedures CONSULT TO NEUROLOGY OFFICE/OUTPATIENT [facility] 60 MINUTES Sneha Cardenas APRN.TELETYPE OPERATOR [address] [place] [address] Referral ID Status Reason Start Date Expiration Date V isits Requested Visits Authorized [id number] Closed PCP Requested Referral 08/02/2023 08/01/2024 1 [...] intractable Procedures PROVIDER ORDERED FOLLOW UP OFFICE/OUTPATIENT [facility] [address] [place] [address] [place] [address] Referral ID Status Reason Start Date Expiration Date V isits Requested Visits Authorized [id number] Closed PCP Requested Referral 01/08/2024 10/24/2024 1 1 Reason Comments Care Reason Comments Imaging/Records Reason Comments Ear Pain Cough Reason Comments Menstrual Problem Has been having 2 pe riods per month since July Reason Comments Menstrual Problem Reason Comments Heavy Bleeding Reason Comments Endometrial Biopsy Specialty Diagnoses / Procedures Referred By Contac t [facility] Diagnoses Abnormal uterine bleeding (AUB) Procedures ENDOMETRIAL BIOPSY ENDOMETRIAL BX W/WO ENDOCERVIX BX W/O DILAT SPX Geovanna Avilez APRN.CNJim [address] [place] [address] Phone: tel: fax: [facility] [address] [place] [phone] Referral ID Status Reason Start Date Expiration Date V isits Requested Visits Authorized [id number] Closed Auto-Generate d Referral 12/25/2024 12/25/2025 1 1 Care Teams (unrecognized sec tion and content) Geophysical E Logger Relationship Specialty Start Date End Date Ottoniel Encarnacion [address] [place] [address] PCP - General Family Practice 02/13/20 Geophysical E Logger Relationship Specialty Start Date End Date Ottoniel Encarnacion [address] [place] [address] PCP - General Family Medicine 02/13/20 Geophysical E Logger Relationship Specialty Start Date End Date Ottoniel Encarnacion FNP PCP - General Certified Nurse Practitioner 06/14/16 Geophysical E Logger Relationship Specialty Start Date End Date Ottoniel Encarnacion FNP PCP - General Certified Nurse Practitioner 06/14/16 Geophysical E Logger Relationship Specialty Start Date End Date Ottoniel Encarnacion CNP [address] [place] [address] PCP - General Family Medicine 02/13/20 Geophysical E Logger Relationship Specialty Start Date End Date Ottoniel Encarnacion CNP [address] [place] [address] PCP - General Family Medicine 02/13/20 Geophysical E Logger Relationship Specialty Start Date End Date Ottoniel Encarnacion CNP [address] [place] [address] PCP - General Family Medicine 02/13/20 Geophysical E Logger Relationship Specialty Start Date End Date Ottoniel Encarnacion CNP [address] [place] [address] PCP - General Family Medicine 02/13/20 Geophysical E Logger Relationship Specialty Start Date End Date Ottoniel Encarnacion CNP [address] [place] [address] PCP - General Family Medicine 02/13/20 Geophysical E Logger Relationship Specialty Start Date End Date Ottoniel Encarnacion CNP [address] [place] [address] PCP - General Family Medicine 02/13/20 Geophysical E Logger Relationship Specialty Start Date End Date Ottoniel Encarnacion CNP [address] [place] [address] PCP - General Family Medicine 02/13/20 Geophysical E Logger Relationship Specialty Start Date End Date Ottoniel Encarnacion CNP [address] [place] [address] PCP - General Family Medicine 02/13/20 Geophysical E Logger Relationship Specialty Start Date End Date Ottoniel Encarnacion CNP [address] [place] [address] PCP - General Family Medicine 02/13/20 Geophysical E Logger Relationship Specialty Start Date End Date Ottoniel Encarnacion CNP [address] [place] [address] PCP - General Family Medicine 02/13/20 Geophysical E Logger Relationship Specialty Start Date End Date Ottoniel Encarnacion CNP [address] [place] [address] PCP - General Family Medicine 02/13/20 Geophysical E Logger Relationship Specialty Start Date End Date Ottoniel Encarnacion CNP [address] [place] [address] (Fax) PCP - General Family Medicine 02/13/20 Geophysical E Logger Relationship Specialty Start Date End Date Ottoniel Encarnacion CNP [address] [place] [address] PCP - General Family Medicine 02/13/20 Team Status: Active Member Role Status Dates Ottoniel Encarnacion INVENTORY TRANSCRIBER, INVENTORY TRANSCRIBER-C Family Provider Active Ottoniel Encarnacion INVENTORY TRANSCRIBER, INVENTORY TRANSCRIBER-C Primary Care Provider Active Team Status: Inactive Member Role Status Dates Ottoniel Encarnacion INVENTORY TRANSCRIBER, INVENTORY TRANSCRIBER-C Primary Care Provider Active Dr. Tabby Krueger MD Attending Provider, Referring Provider Active Geophysical E Logger Relationship Specialty Start Date End Date Ottoniel Encarnacion CNP [address] [place] [address] PCP - General Family Medicine 02/13/20 Geophysical E Logger Relationship Specialty Start Date End Date Ottoniel Encarnacion CNP [address] [place] [address] PCP - General Family Medicine 02/13/20 Geophysical E Logger Relationship Specialty Start Date End Date Ottoniel Encarnacion CNP [address] [facility] [place] [address] (Fax) PCP - General Family Medicine 02/13/20 Geophysical E Logger Relationship Specialty Start Date End Date Ottoniel Encarnacion CNP [address] [facility] [place] [address] PCP - General Family Medicine 02/13/20 Geophysical E Logger Relationship Specialty Start Date End Date Ottoniel Encarnacion CNP [address] [place] [address] PCP - General Family Medicine 02/13/20 Geophysical E Logger Relationship Specialty Start Date End Date Ottoniel Encarnacion CNP [address] [place] [address] PCP - General Family Medicine 02/13/20 Geophysical E Logger Relationship Specialty Start Date End Date Ottoniel Encarnacion CNP [address] [place] [address] PCP - General Family Medicine 02/13/20 Geophysical E Logger Relationship Specialty Start Date End Date Ottoniel Encarnacion CNP [address] [place] [address] PCP - General Family Medicine 02/13/20 Geophysical E Logger Relationship Specialty Start Date End Date Ottoniel Encarnacion CNP [address] [place] [address] PCP - General Family Medicine 02/13/20 Geophysical E Logger Relationship Specialty Start Date End Date Ototniel Encarnacion CNP [address] [place] [address] PCP - General Family Medicine 02/13/20 Geophysical E Logger Relationship Specialty Start Date End Date Ottoniel Encarnacion CNP [address] [place] [address] PCP - General Family Medicine 02/13/20 Geophysical E Logger Relationship Specialty Start Date End Date Ottoniel Encarnacion CNP [address] [place] [address] (Fax) PCP - General Family Medicine 02/13/20 Geophysical E Logger Relationship Specialty Start Date End Date Ottoniel Encarnacion CNP [address] [place] [address] (Fax) PCP - General Family Medicine 02/13/20 Geophysical E Logger Relationship Specialty Start Date End Date Ottoniel Encarnacion CNP [address] [place] [address] (Fax) PCP - General Family Medicine 02/13/20 Geophysical E Logger Relationship Specialty Start Date End Date Ottoniel Encarnacion CNP [address] [place] [address] (Fax) PCP - General Family Medicine 02/13/20 Geophysical E Logger Relationship Specialty Start Date End Date Ottoniel Encarnacion CNP [address] [place] [address] (Fax) PCP - General Family Medicine 02/13/20 Geophysical E Logger Relationship Specialty Start Date End Date Ottoniel Encarnacion CNP [address] [place] [address] (Fax) PCP - General Family Medicine 02/13/20 Geophysical E Logger Relationship Specialty Start Date End Date Ottoniel Encarnacion CNP [address] [place] [address] PCP - General Family Medicine 02/13/20 Geophysical E Logger Relationship Specialty Start Date End Date Ottoniel Encarnacion CNP [address] [place] [address] PCP - General Family Medicine 02/13/20 Geophysical E Logger Relationship Specialty Start Date End Date Ottoniel Encarnacion CNP [address] [place] [address] PCP - General Family Medicine 02/13/20 Geophysical E Logger Relationship Specialty Start Date End Date Ottoniel Encarnacion CNP [address] [place] [address] PCP - General Family Medicine 02/13/20 Geophysical E Logger Relationship Specialty Start Date End Date Ottoniel Encarnacion CNP [address] [facility] [place] [address] PCP - General Family Medicine 02/13/20 Geophysical E Logger Relationship Specialty Start Date End Date Ottoniel Encarnacion CNP [address] [place] [address] PCP - General Family Medicine 02/13/20 Geophysical E Logger Relationship Specialty Start Date End Date Ottoniel Encarnacion CNP [address] [place] [address] PCP - General Family Medicine 02/13/20 Geophysical E Logger Relationship Specialty Start Date End Date Ottoniel Encarnacion CNP [address] [place] [address] PCP - General Family Medicine 02/13/20 Geophysical E Logger Relationship Specialty Start Date End Date Ottoniel Encarnacion CNP [address] [place] [address] PCP - General Family Medicine 02/13/20 Geophysical E Logger Relationship Specialty Start Date End Date Ottoniel Encarnacion CNP [address] [place] [address] (Fax) PCP - General Family Medicine 02/13/20 Geophysical E Logger Relationship Specialty Start Date End Date Ottoniel Encarncaion CNP [address] [place] [address] (Fax) PCP - General Family Medicine 02/13/20 Geophysical E Logger Relationship Specialty Start Date End Date Ottoniel Encarnacion CNP [address] [place] [address] (Fax) PCP - General Family Medicine 02/13/20 Geophysical E Logger Relationship Specialty Start Date End Date Ottoniel Encarnacion CNP [address] [place] [address] (Fax) PCP - General Family Medicine 02/13/20 Geophysical E Logger Relationship Specialty Start Date End Date Ottoniel Encarnacion CNP [address] [place] [address] (Fax) PCP - General Family Medicine 02/13/20 Geophysical E Logger Relationship Specialty Start Date End Date Ottoniel Encarnacion CNP [address] [place] [address] (Fax) PCP - General Family Medicine 02/13/20 Geophysical E Logger Relationship Specialty Start Date End Date Ottoniel Encarnacion CNP [address] [place] [address] PCP - General Family Medicine 02/13/20 Goals [...] BE BASED ON THE PRIMARY CLINICAL RECORDS. [facility]. provides no warranty or guarantee of the accuracy or completeness of information in this document.
--- OUTSIDE RECORDS SUMMARY | 2025-05-24 19:49 | XMS RPT_ITS | CCD ---
Author Organization [facility] Care Team Providers Care Trimmer Sorter Name Role Phone OTTONIEL ENCARNACION Primary Care Unavailable TRACI INGRAM Attending Unavailable TRACI INGRAM Admitting Unavailable Ottoniel Encarnacion Primary Care Provider Ottoniel Encarnacion Primary Care Provider Ottoniel Scott Primary Care Provider SHASHANK SQUEEGEE OPERATOR-COTTONIEL Consulting Unavailable POORMAN CONSULTING BUSINESS DEVELOPER~[phone], LISSETTEMAN SORAIDA M Attend ing Unavailable POORMAN CONSULTING BUSINESS DEVELOPER~[id number], POORMAN SORAIDA M Admitt ing Unavailable SHASHANK SQUEEGEE OPERATOR-C~[id number], SHASHANK Aguilar Primary Car e Unavailable OTTONIEL ENCARNACION Consulting Unavailable POORMAN CONSULTING BUSINESS DEVELOPER, SORAIDA M Consulting Unavailab le POORMAN CONSULTING BUSINESS DEVELOPER, SORAIDA M Consulting Unavailab le SHASHANK SQUEEGEE OPERATOR-C~[id number], SHASHANK Agiular Primary Car e Unavailable ENCINAS DO~[id number], CE IVETT M Admitting Unavailable SHASHANK SQUEEGEE OPERATOR-COTTONIEL Consulting Unavailable ENCINAS DO~[id number], CE CARRREAILY M Attending Unavailable OTTONIEL ENCARNACION Consulting Unavailable ENCINAS DO, IVETT M Consulting Unavailable ENCINAS DO, IVETT M Consulting Unavailable NONE, NONE Consulting Unavailable NONE, NONE Primary Care Unavailable POORMAN CONSULTING BUSINESS DEVELOPER~[phone], POORMAN SORAIDA M Attend ing Unavailable POORMAN CONSULTING BUSINESS DEVELOPER~[id number], POORMAN SORAIDA M Admitt ing Unavailable NONE, NONE Consulting Unavailable SHASHANK SQUEEGEE OPERATOR-C~[id number], SHASHANK Aguilar Primary Car e Unavailable ENCINAS DO~[id number], CE ROOT M Attending Unavailable KONSTAN MD, ARAMIS M Consulting Unavailable ENCINAS DO~, ENCINAS IVETT M Admitting Unavailable SELVIN MARCELO, ARAMIS Fernandez Consulting Unavailable SHASHANK SQUEEGEE OPERATOR-C, OTTONIEL Aguilar Consulting Unavailable OTTONIEL ENCARNACION K Consulting Unavailable ENCINAS DO, IVETT M Consulting Unavailable ENCINAS DO, IVETT M Consulting Unavailable SHASHANK SQUEEGEE OPERATOR-C, OTTONIEL K Consulting Unavailable JUNE MARCELO, ~[phone] DEVAN Lopez Attending Unavailable JUNE MARCELO, ~[phone] DEVAN Lopez Admitting Unavailable SHASHANK SQUEEGEE OPERATOR-C~[id number], SHASHANK GARNERA K Primary Car e Unavailable SHASHANK OTTONIEL K Consulting Unavailable JUNE MARCELO, DR DEVAN Lopez Consulting Unavaila cr WATKINS MD, DR DEVAN Lopez Consulting Unavaila cr ESCALANTE MD, PAULA Guzmán Consulting Unavailable AVA MARCELO, PAULA Guzmán Consulting Unavailable Richie [phone], Clint [phone] C onsulting Unavailable DARIO DO~[id number], DARIO LEONID J Admitting Unavailable DARIO DO~[id number], DARIO LEONID J Attending Unavailable SHASHANK SQUEEGEE OPERATOR-C~[phone], SHASHANK GARNERA K Primary Car e Unavailable RICHIE MARCELO, CLINT Consulting Unavailable SHASHANK SQUEEGEE OPERATOR-C, OTTONIEL K Consulting Unavailable OTTONIEL ENCARNACION K Consulting Unavailable BILL MARCELO, MILKA Tay Consulting Unavailable BILL MARCELO, MILKA Tay Consulting Unavailable THEODORE MARCELO, TEGAN Mares Consulting Unavailable THEODORE MARCELO, TEGAN Mares Consulting Unavailable DARIO DO, LEONID J Consulting Unavailable DARIO DO, LEONID J Consulting Unavailable NONE, NONE Consulting Unavailable ENCINAS DO~, ENCINAS IVETT M Admitting Unavailable SHASHANK SQUEEGEE OPERATOR-C~[phone], SHASHANK GARNERA K Primary Car e Unavailable ENCINAS DO~, CE ROOT M Attending Unavailable NONE, NONE Consulting Unavailable ENCINAS DO, IVETT M Consulting Unavailable ENCINAS DO, IVETT M Consulting Unavailable NONE, NONE Consulting Unavailable SHASHANK SQUEEGEE OPERATOR-C~[phone], SHASHANK GARNERA K Primary Car e Unavailable ENCINAS DO~, ENCINAS IVETT M Admitting Unavailable ENCINAS DO~, ENCINAS IVETT M Attending Unavailable NONE, NONE Consulting Unavailable ENCINAS DO, IVETT M Consulting Unavailable ENCINAS DO, IVETT M Consulting Unavailable NONE, NONE Consulting Unavailable POORMAN CONSULTING BUSINESS DEVELOPER~[id number], LISSETTEGRACIELA BURNHAM M Attend ing Unavailable ABDULKADIR CONSULTING BUSINESS DEVELOPER~[phone], ABDULKADIR BURNHAM M Admitt ing Unavailable SHASHANK SQUEEGEE OPERATOR-C~[phone], SHASHANK OTTONIEL K Primary Car e Unavailable NONE, NONE Consulting Unavailable ABDULKADIR CONSULTING BUSINESS DEVELOPER, SORAIDA M Consulting Unavailab le ABDULKADIR CONSULTING BUSINESS DEVELOPER, SORAIDA M Consulting Unavailab le Shashank [facility], Ottoniel K Primary Care Provider CONSULT, NEUROLOGY-STROKE ALERT Consulting Unavailable LEONID BISHOP Referring Unavailable JAX ROJAS Attending Unavailable SHASHANK, OTTONIEL K Primary Care Unavailable JEAN GOVEA Attending Unavailable AUDELIAСЕРГЕЙIA Referring Unavailable SHASHANK, OTTONIEL K Primary Care Unavailable SHASHANK, OTTONIEL K Primary Care Unavailable IVETT PALOMO Referring Unavailable SNEHA CARDENAS Attending Unavailable Shashank FORMING AND ASSEMBLING SUPERVISOR, Ottoniel K Primary Care Provider JHON CANTRELL [...] sources) Adhesive Tape Substance Allergy 9 Rash [facility] Latex (6 sources) Latex Substance Allergy 8 Rash, Hives [facility] NIFEdipine (3 sources) NIFEdipine Drug Allergy 4 Rash [facility] Sulfonamides (antibiotic) (3 sources) Sulfonamides (Antibiotic) Drug Allergy 9 Rash [facility] (20 sources) Latex; Translations: [LATEX] Propensity to adverse reactions to drug (disorder) 9 Rash, Hives [facility] Repository (20 sources) Sulfonamides (Antibiotic); Translations: [SULFA (SULFONAMIDE ANTIBIOTICS)] Propensity to adverse reactions to drug (disorder) 9 [facility] Repository (20 sources) Adhesive Tape-Silicones; Translations: [ADHESIVE TAPE-SILICONES] Drug Allergy 9 [facility] (2 sources) Sulfonamides (Antibiotic) Propensity to adverse reactions to drug 7 Hives [facility] (2 sources) *Adhesive Tape Propensity to adverse reactions 9 [facility] (2 sources) natural latex rubber; Translations: [LATEX, NATURAL RUBBER] Drug allergy (disorder) 8 [facility] Repository (20 sources) Adhesive Tape; Translations: [ADHESIVE TAPE (ROSINS)] Allergy to substance 9 [facility] (20 sources) Latex Drug Allergy 8 Hives, [facility] (20 sources) NIFEdipine; Translations: [NIFEDIPINE] Drug Allergy 4 [facility] (20 sources) Venom-Honey Bee; Translations: [VENOM-HONEY BEE] Drug Allergy 1 Swelling [facility] (1 source) Sulfonamides (Antibiotic) Drug allergy (disorder) [facility] Repository (1 source) Adhesive Tape Drug allergy (disorder) 5 [facility] Repository Medications Current Medications Medication Drug [...] a day. Take 2 tablets by mo [facility] two times a day. loratadine 10 mg [...] 2018 3:16pm June 19, 2018 1:09am Pediatric Troofjvt-Oelf-Jzx (2 sources) Start: 04-26-2019 Pediatric Mult pfnu-Quab-Rux Active 1 EACH PO DAILY April 26, 2019 1:00am Start: 04-26-2019 Pediatric Mult sasa-Nyvy-Mtv Active 1 EACH PO DAILY April 26, [...] Office Visit (OBGYWM) CLARISA DE LA CRUZ ([id number]) 1990 F Date Time Provider Department 02/07/25 11:10 AM TABBY KRUEGER OBGYWM During your visit today, we recorded the following information about you: Blood pressure Weight 120/68 86.2 kg Tabby Krueger MD 02/07/2025 1:05 PM Signed Obstetrics and Gynecology [place] NODULIZER Visit Subjective Recording using Travolver software for draft documentation of the visit was discussed with the patient/authorized risk control representative; all questions welcomed and answered. 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 Likely round ligament pain. To notify if persistent or worsening. Lyme disease Mesenteric lymphadenitis POTS (postural orthostatic tachycardia syndrome) TIA (transient ischemic attack) 04/2023 Vaginal bleeding in , first trimester ([facility]) 07/01/2023 Per OB records, humza [...] 3x/day until (more content not included)... Normal [facility] CNOVon 01-08-2025 CNOV Office Visit (OBGYWM) JONO,CLARISA John ([id number]) 1990 F Date Time Provider Department 01/08/25 1:50 PM GEOVANNA AVILEZ OBGYWM During your visit today, we recorded the following information about you: Blood pressure Weight Last Period 124/80 85.7 kg 12/10/24 Geovanna Avilez APRN.CNM 01/08/2025 3:57 PM Signed Speeder Machine Operator offered: Patient declinesCha Major is a 34 [...] in 3 to 5 business days via [employer], unless a different method of communication was discussed today with your provider. Referring Provider: GEOVANNA AVILEZ [[id number]] Allergies As of Date: 01/08/2025 Noted Allergy [...] uterus [N80.03] Irregular menstruation [N92.6] Order(s):SURGICAL PATHOLOGY [TGR6909] Order #: [id number]. #:[id number] UA DIP,URINE HCG (POC) [[id number]] Order #: [id number]. #:[id number] Prescriptions as of 01/08/2025 - Norethindrone, Contraceptive, 0.35 mg tablet Take 1 tablet by mouth once daily. - labetalol (TRANDATE) 100 mg tablet Take 1 tablet by mouth two times a day. (more content not included)... Normal [facility] Pathology biopsy report Xander (Tiss)on 01-08-2025 AP DISCLAIMER Normal [facility] Comment on above: Order Comment: Speci men Type: TISSUE SPECIMEN Ordering Facility: [facility] Address: [address] [place] [address] Result Comment: Adeline salas Developed Test (LDT) Disclaimer: Performance characteristics of immunohistochemical, immunofluorescent, and chromogenic in-situ hybridization tests have been determined by the performing laboratory within the [facility] Department of Pathology and Laboratory Medicine ([facility], [facility], [facility], [facility], [facility], [facility], or [facility]) in a manner consistent with CLIA requirements. One or more of these tests may not have been cleared or approved by the FDA. The [facility] Department of Pathology and Laboratory Medicine is regulated under CLIA as qualified to perform high-complexity testing. These tests are used for clinical purposes. These should not be regarded as investigational or for research. Positive and negative controls stain appropriately. Performed By: #### 6 6121-5 #### [facility] CLIA [id number] [address] [place] [address] [place] CASE REPORT Normal [facility] Comment on above: Order Comment: Speci men Type: TISSUE SPECIMEN Ordering Facility: [facility] Address: [address] [place] [address] Result Comment: Surg [facility] Pathology Report Case: [id number] Authorizing Provider: Geovanna Avilez APRN.CNM Collected: 01/08/2025 02:17 PM Ordering Location: OB/Gynecology Received: 01/08/2025 04:33 PM Pathologist: Kirsten Elias MD Specimen: Endometrium, Biopsy Performed By: #### 6 6121-5 #### [facility] CLIA [id number] [address] [place] [address] [place] CLINICAL HISTORY Adenomyosis of Uterus and Irregular Menses Normal [facility] Comment on above: Order Comment: Speci men Type: TISSUE SPECIMEN Ordering Facility: [facility] Address: [address] [place] [address] Performed By: #### 6 6121-5 #### [facility] CLIA [id number] [address] [place] [address] [place] FINAL DIAGNOSIS Normal [facility] Comment on above: Order Comment: Speci men Type: TISSUE SPECIMEN Ordering Facility: [facility] Address: [address] [place] [address] Result Comment: Endo metrium, biopsy: - Mid-to-late secretory pattern endometrium. at 1223 EDT Performed By: #### 6 6121-5 #### [facility] CLIA [id number] [address] [place] [address] [place] FINAL PERFORMING LAB Normal [facility] Comment on above: Order Comment: Speci men Type: TISSUE SPECIMEN Ordering Facility: [facility] Address: [address] [place] [address] Result Comment: Diag nostic interpretation performed at: [facility], [address] [place] [address] CLIA# [id number] Saloon Keeper: Aroldo Vasquez MD Performed By: #### 6 6121-5 #### [facility] CLIA [id number] [address] [place] [address] [place] GROSS DESCRIPTION Normal [facility] Comment on above: Order Comment: Speci men Type: TISSUE SPECIMEN Ordering Facility: [facility] Address: [address] [place] [address] Result Comment: A. E ndometrium, Biopsy Received in formalin are multiple pisano-pink, soft feathery segments of tissue admixed with gelatinous material aggregating to 2.5 x 2.3 x 0.4 cm. Totally submitted in one cassette. [facility] January 08, 2025 8:20 PM Gross examination performed at [facility], [address] [place] [address] Performed By: #### 6 6121-5 #### [facility] CLIA [id number] [address] [place] [address] [place] UA DIP,URINE HCG (POC)on Beta HCG ( test) Ql (U) Negative Negative [facility] Demonstrator Sewing Techniques (POCT) Internal QC OK [facility] Location:[facility], [address], [place], [address] [facility] POINT OF CARE [facility] Franko 12-25-2024 WILDERN Telephone (OBGYWM) CLARISA DE LA CRUZ ([id number]) 1990 F Date Time Provider Department 12/25/24 [...] she get EMB? 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 MATERNAL MEDICINE [facility] US Pelvison 10-26-2024 Radiology Study observation (narrative) [facility] CBC W Auto Differential pane l (Bld)on 10-22-2024 Basophils (Bld) [#/Vol] 0.05 10*3/uL [facility] Basophils/100 WBC (Bld) 0.6 % [facility] Differential cell count method Nom (Bld) Auto [facility] Eosinophils (Bld) [#/Vol] 0.5 10*3/uL High [facility] Eosinophils/100 WBC (Bld) 6.5 % [facility] Erythrocyte distribution width (RBC) [Ratio] 12.6 % 11.5 - 15.0 % [facility] Hematocrit (Bld) [Volume fraction] 39.3 % 36.0 - 46.0 % [facility] Hemoglobin (Bld) [Mass/Vol] 13.1 g/dL 11.5 - 15.5 g/dL [facility] Immature granulocytes (Bld) [#/Vol] [facility] Immature granulocytes/100 WBC (Bld) 0.3 % [facility] Interpretation and review of laboratory results Abnormal [facility] Lymphocytes (Bld) [#/Vol] 1.81 10*3/uL [facility] Lymphocytes/100 WBC (Bld) 23.5 % [facility] MCH (RBC) [Entitic mass] 29.1 pg 26.0 - 34.0 pg [facility] MCHC (RBC) [Mass/Vol] 33.3 g/dL 30.5 - 36.0 g/dL [facility] MCV (RBC) [Entitic vol] 87.3 fL 80.0 - 100.0 fL [facility] Monocytes (Bld) [#/Vol] 0.62 10*3/uL [facility] Monocytes/100 WBC (Bld) 8 % [facility] Neutrophils (Bld) [#/Vol] 4.71 10*3/uL [facility] Neutrophils/100 WBC (Bld) 61.1 % [facility] Nucleated RBC (Bld) [#/Vol] NINF [facility] Nucleated RBC/100 WBC (Bld) [Ratio] 0 % /100 WBC [facility] Platelet mean volume (Bld) [Entitic vol] 10.2 fL 9.0 - 12.7 fL [facility] Platelets (Bld) [#/Vol] 304 10*3/uL [facility] RBC (Bld) [#/Vol] 4.5 10*6/uL 3.90 - 5.2 0 m/uL [facility] WBC (Bld) [#/Vol] 7.71 10*3/uL [facility] Basophils (Bld) [#/Vol] 0.05 10*3/uL Normal <0.11 [facility] Comment on above: Order Comment: Speci men Type: BLOOD SPECIMENOrdering Facility: [facility] Address: [address] [place] [address] Performed By: #### 5 7021-8 ####[facility] [id number] [address] [place] Basophils/100 WBC (Bld) 0.6 % Normal [facility] Comment on above: Order Comment: Speci men Type: BLOOD SPECIMENOrdering Facility: [facility] Address: [address] [place] [address] Performed By: #### 5 7021-8 ####[facility] [id number] [place] [address] [place] Differential cell count method Nom (Bld) Auto Normal [facility] Comment on above: Order Comment: Speci men Type: BLOOD SPECIMENOrdering Facility: [facility] Address: [address] [place] [address] Performed By: #### 5 7021-8 ####[facility] [id number] [place] [address] [place] Eosinophils (Bld) [#/Vol] 0.50 10*3/uL High <0.46 [facility] Comment on above: Order Comment: Speci men Type: BLOOD SPECIMENOrdering Facility: [facility] Address: [address] [place] [address] Performed By: #### 5 7021-8 ####[facility] [id number] [place] [address] [place] Eosinophils/100 WBC (Bld) 6.5 % Normal [facility] Comment on above: Order Comment: Speci men Type: BLOOD SPECIMENOrdering Facility: [facility] Address: [address] [place] [address] Performed By: #### 5 7021-8 ####[facility] [id number] [place] [address] [place] Erythrocyte distribution width (RBC) [Ratio] 12.6 % Normal 11.5-15.0 [facility] Comment on above: Order Comment: Speci men Type: BLOOD SPECIMENOrdering Facility: [facility] Address: [address] [place] [address] Performed By: #### 5 7021-8 ####[facility] [id number] [place] [address] [place] Hematocrit (Bld) [Volume fraction] 39.3 % Normal 36.0-46.0 [facility] Comment on above: Order Comment: Speci men Type: BLOOD SPECIMENOrdering Facility: [facility] Address: [address] [place] [address] Performed By: #### 5 7021-8 ####[facility] [id number] [place] [address] [place] Hemoglobin (Bld) [Mass/Vol] 13.1 g/dL Normal 11.5-15.5 [facility] Comment on above: Order Comment: Speci men Type: BLOOD SPECIMENOrdering Facility: [facility] Address: [address] [place] [address] Performed By: #### 5 7021-8 ####[facility] [id number] [place] [address] [place] Immature granulocytes (Bld) [#/Vol] 10*3/uL Normal <0.10 [facility] Comment on above: Order Comment: Speci men Type: BLOOD SPECIMENOrdering Facility: [facility] Address: [address] [place] [address] Performed By: #### 5 7021-8 ####[facility] [id number] [place] [address] [place] Immature granulocytes/100 WBC (Bld) 0.3 % Normal [facility] Comment on above: Order Comment: Speci men Type: BLOOD SPECIMENOrdering Facility: [facility] Address: [address] [place] [address] Performed By: #### 5 7021-8 ####[facility] [id number] [place] [address] [place] Lymphocytes (Bld) [#/Vol] 1.81 10*3/uL Normal 1.00-4.00 [facility] Comment on above: Order Comment: Speci men Type: BLOOD SPECIMENOrdering Facility: [facility] Address: [address] [place] [address] Performed By: #### 5 7021-8 ####[facility] [id number] [place] [address] [place] Lymphocytes/100 WBC (Bld) 23.5 % Normal [facility] Comment on above: Order Comment: Speci men Type: BLOOD SPECIMENOrdering Facility: [facility] Address: [address] [place] [address] Performed By: #### 5 7021-8 ####[facility] [id number] [place] [address] [place] MCH (RBC) [Entitic mass] 29.1 pg Normal 26.0-34.0 [facility] Comment on above: Order Comment: Speci men Type: BLOOD SPECIMENOrdering Facility: [facility] Address: [address] [place] [address] Performed By: #### 5 7021-8 ####[facility] [id number] [place] [address] [place] MCHC (RBC) [Mass/Vol] 33.3 g/dL Normal 30.5-36.0 [facility] Comment on above: Order Comment: Speci men Type: BLOOD SPECIMENOrdering Facility: [facility] Address: [address] [place], [place] [address] Performed By: #### 5 7021-8 ####[facility] [id number] [place] [address] [place] MCV (RBC) [Entitic vol] 87.3 fL Normal 80.0-100.0 [facility] Comment on above: Order Comment: Speci men Type: BLOOD SPECIMENOrdering Facility: [facility] Address: [address] [place] [address] Performed By: #### 5 7021-8 ####[facility] [id number] [place] [address] [place] Monocytes (Bld) [#/Vol] 0.62 10*3/uL Normal <0.87 [facility] Comment on above: Order Comment: Speci men Type: BLOOD SPECIMENOrdering Facility: [facility] Address: [address] [place] [address] Performed By: #### 5 7021-8 ####[facility] [id number] [place] [address] [place] Monocytes/100 WBC (Bld) 8.0 % Normal [facility] Comment on above: Order Comment: Speci men Type: BLOOD SPECIMENOrdering Facility: [facility] Address: [address] [place] [address] Performed By: #### 5 7021-8 ####[facility] [id number] [place] [address] [place] Neutrophils (Bld) [#/Vol] 4.71 10*3/uL Normal 1.45-7.50 [facility] Comment on above: Order Comment: Speci men Type: BLOOD SPECIMENOrdering Facility: [facility] Address: [address] [place] [address] Performed By: #### 5 7021-8 ####[facility] [id number] [place] [address] [place] Neutrophils/100 WBC (Bld) 61.1 % Normal [facility] Comment on above: Order Comment: Speci men Type: BLOOD SPECIMENOrdering Facility: [facility] Address: [address] [place] [address] Performed By: #### 5 7021-8 ####[facility] [id number] [place] [address] [place] Nucleated RBC (Bld) [#/Vol] 10*3/uL Normal <0.01 [facility] Comment on above: Order Comment: Speci men Type: BLOOD SPECIMENOrdering Facility: [facility] Address: [address] [place] [address] Performed By: #### 5 7021-8 ####[facility] BEACHNCLIA [id number] [place] [address] [place] Nucleated RBC/100 WBC (Bld) [Ratio] 0.0 /100 WBC Normal [facility] Comment on above: Order Comment: Speci men Type: BLOOD SPECIMENOrdering Facility: [facility] Address: [address] [place] [address] Performed By: #### 5 7021-8 ####[facility] BEACHNCLIA [id number] [place] [address] [place] Platelet mean volume (Bld) [Entitic vol] 10.2 fL Normal 9.0-12.7 [facility] Comment on above: Order Comment: Speci men Type: BLOOD SPECIMENOrdering Facility: [facility] Address: [address] [place] [address] Performed By: #### 5 7021-8 ####[facility] [id number] [place] [address] [place] Platelets (Bld) [#/Vol] 304 10*3/uL Normal 150-400 [facility] Comment on above: Order Comment: Speci men Type: BLOOD SPECIMENOrdering Facility: [facility] Address: [address] [place] [address] Performed By: #### 5 7021-8 ####[facility] BEACHMIKADREAA [id number] [place] [address] [place] RBC (Bld) [#/Vol] 4.50 10*6/uL Normal 3.90-5.20 [facility] Comment on above: Order Comment: Speci men Type: BLOOD SPECIMENOrdering Facility: [facility] Address: [address] [place] [address] Performed By: #### 5 7021-8 ####[facility] BEACHMIKADREAA [id number] [place] [address] [place] WBC (Bld) [#/Vol] 7.71 10*3/uL Normal 3.70-11.00 [facility] Comment on above: Order Comment: Speci men Type: BLOOD SPECIMENOrdering Facility: [facility] Address: [address] [place] [address] Performed By: #### 5 7021-8 ####[facility] BEACHNCLIA [id number] [place] [id number] [place] [facility] CNOVon 10-22-2024 CNOV Office Visit (OBGYWM) CLARISA DE LA CRUZ ([id number]) 1990 F Date Time Provider Department 10/22/24 1:45 PM GEOVANNA AVILEZ OBGYWM During your visit today, we recorded the following information about you: Blood pressure Weight Last Period 118/72 83.9 kg 10/03/24 Geovanna Avilez APRN.CNM 10/22/2024 2:23 PM Signed Obstetrics and Gynecology [place] NODULIZER Visit Subjective Recording using ambient [employer] software for draft documentation of the visit was discussed with the patient/authorized risk control representative; all questions welcomed and answered. 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 Likely round ligament pain. To notify if persistent or worsening. Lyme disease Mesenteric lymphadenitis POTS (postural orthostatic tachycardia syndrome) TIA (transient ischemic attack) 04/2023 Vaginal bleeding in , first trimester ([facility]) 07/01/2023 Per OB records, humza [...] discussed with the Patient or Patient's Authorized Manager [employer]. As applicable, any other physician, advance practice provider, medical student, or other health professional student that will be observing or involved in the sensitive examination for educational or training purposes was discussed with the Patient or Authorized Manager Aerospace. The Patient or Authorized Manager Aer[employer] has agreed to proceed with the sensitive examination. (Sensitive examination includes inspection and/or palpation of the breasts, pelvis, prostate and anorectal regions). PHYSICAL EXAM: BP 118/72 Wt 185 lb (83.9kg) LMP 10/03/2024 GENERAL: Pleasant; in no (more content not included)... Normal [facility] T4 Free SerPl-mCncon 025 Free T4 [Mass/Vol] 0.9 ng/dL Normal 0.9-1.7 [facility] Comment on above: Order Comment: Speci men Type: BLOOD SPECIMENOrdering Facility: [facility] Address: [address] [place] [address] Performed By: #### 3 016-3, 3024-7 ####[facility] LABCLIA [id number] [place] [address] [place] TSH SerPl-aCncon 10-22-2024 TSH Qn 0.837 m[IU]/L Normal 0.270-4.200 [facility] Comment on above: Order Comment: Speci men Type: BLOOD SPECIMENOrdering Facility: [facility] Address: [address] [place] [address] Result Comment: If t he patient is , TSH reference range varies by gestational period: First Trimester (weeks 9-12): 0.180-2.990 mIU/L Second Trimester: 0.110-3.980 mIU/L Third Trimester: 0.480-4.710 mIU/L Noe Lynch et al. A Practical Approach for the Verifications and Determination of Site- and Trimester-Specific Reference Intervals for Thyroid Function tests in . Thyroid, 2019:29:3:412-420. Alberto Guzmán, et al. 2017 Guidelines of the [place] Thyroid Association for the Diagnosis and Management of Thyroid Disease during and the . Thyroid, 2017:27:3:315-389. Performed By: #### 3 016-3, 3024-7 ####[facility] DANA [id number] ADENIKE CASTILLO [address] OF [place] CNOVon 09-30-2024 CNOV Office Visit (UCWSTR) CLARISA DE LA CRUZ ([id number]) 1990 F Date Time Provider Department 09/30/24 3:00 PM JENIFFER STYLES [facility] During your visit today, we recorded the following information about you: Temperature Pulse Blood pressure Weight 98.3 degrees 96/minute 140/80 83.9 kg Height 1.715 m Jeniffer Styles APRN.FORMING AND ASSEMBLING SUPERVISOR 09/30/2024 3:21 PM Signed [facility] [...] 07/01/2023 Hx of preeclampsia, prior , currently ([facility]) 01/2021 Around 32weeks Left lower quadrant abdominal pain 07/01/2023 Reports random sharp pain to left side. Likely round ligament pain. To notify if persistent or worsening. Lyme disease Mesenteric lymphadenitis POTS (postural orthostatic tachycardia syndrome) TIA (transient ischemic attack) 04/2023 Vaginal bleeding in , first trimester ([facility]) 07/01/2023 Per OB records, humza [...] MG-POTASSIUM CLAVULANATE 125 MG TABLET Jeniffer Styles APRN.FORMING AND ASSEMBLING SUPERVISOR History and Record Review External record(s) reviewed: prior outpatient record. Disposition The patient was discharged. Procedures Referring Provider: SELF [200] Allergies As of Date: 09/30/2024 Note (more content not included)... Normal [facility] Basic Metabolic Profile (BMP )on 06-28-2024 BUN/CRE 22.9 RATIO High 10-20 [facility] Comment on above: Performed By: #### L 501.5200, L100.0100, L500.2500 #### [facility] [address] [place], [address] CA,Total 9.6 mg/dL Normal 8.5-10.1 [facility] Comment on above: Performed By: #### L 501.5200, L100.0100, L500.2500 #### [facility] [address] [place], [address] Chloride [Moles/Vol] 108 mmol/L High 98-107 [facility] Comment on above: Performed By: #### L 501.5200, L100.0100, L500.2500 #### [facility] [address] [place], [address] CO2 [Moles/Vol] 28.0 mmol/L Normal 21.0-32.0 [facility] Comment on above: Performed By: #### L 501.5200, L100.0100, L500.2500 #### [facility] [address] [place], [address] Creatinine [Mass/Vol] 0.74 mg/dL Normal 0.55-1.02 [facility] Comment on above: Result Comment: The validity of the calculated GFR GFRAA in patients over 70 years has not been determined. Clinical correlation is essential. Performed By: #### L 501.5200, L100.0100, L500.2500 #### [facility] [address] [place], [address] ECRCL 120.62 ml/min Normal [facility] Comment on above: Performed By: #### L 501.5200, L100.0100, L500.2500 #### [facility] [address] [place], [address] EST GFR - AA 116 mL/min Normal >60 [facility] Comment on above: Result Comment: Afri can [place] GFR Calc Performed By: #### L 501.5200, L100.0100, L500.2500 #### [facility] [address] [place], [address] GAP 5 Normal 5-15 [facility] Comment on above: Performed By: #### L 501.5200, L100.0100, L500.2500 #### [facility] [address] [place], [address] GFR/1.73 sq M.predicted among non-blacks MDRD (S/P/Bld) [Vol rate/Area] 96 mL/min/{1.73_m2} Normal >60 [facility] Comment on above: Result Comment: Non- GFR Calc Performed By: #### L 501.5200, L100.0100, L500.2500 #### [facility] [address] [place], [address] Glucose [Mass/Vol] 102 mg/dL Normal 74-106 [facility] Comment on above: Result Comment: Fast ing Glucose result from 100 to 125 mg/dL suggests IMPAIRED HOMEOSTASIS per A.D.A. criteria. Performed By: #### L 501.5200, L100.0100, L500.2500 #### [facility] [address] [place], [address] Potassium [Moles/Vol] 4.1 mmol/L Normal 3.5-5.1 [facility] Comment on above: Performed By: #### L 501.5200, L100.0100, L500.2500 #### [facility] [address] [place], [address] Sodium [Moles/Vol] 140 mmol/L Normal 136-145 [facility] Comment on above: Performed By: #### L 501.5200, L100.0100, L500.2500 #### [facility] [address] [place], [address] Urea nitrogen [Mass/Vol] 17 mg/dL Normal 7-18 [facility] Comment on above: Performed By: #### L 501.5200, L100.0100, L500.2500 #### [facility] [address] [place], [address] CBC W/Diff, Automatedon 02-2 0-2024 Absolute Lymph 1.29 X10 3/uL Normal 0.83-4.51 [facility] Comment on above: Performed By: #### L 501.5200, L100.0100, L500.2500 #### [facility] [address] [place], [address] Absolute Neut 3.9 X10 3/uL Normal 2.0-7.7 [facility] Comment on above: Performed By: #### L 501.5200, L100.0100, L500.2500 #### [facility] [address] [place], [address] Basophils/100 WBC (Bld) 0.8 % Normal 0-1 [facility] Comment on above: Performed By: #### L 501.5200, L100.0100, L500.2500 #### [facility] [address] [place], [address] Eosinophils/100 WBC (Bld) 7.7 % High 0-5 [facility] Comment on above: Performed By: #### L 501.5200, L100.0100, L500.2500 #### [facility] [address] [place], [address] Erythrocyte distribution width (RBC) [Ratio] 12.3 % Normal 11.6-14.6 [facility] Comment on above: Performed By: #### L 501.5200, L100.0100, L500.2500 #### [facility] [address] [place], [address] Hematocrit (Bld) [Volume fraction] 39.2 % Normal 37-47 [facility] Comment on above: Performed By: #### L 501.5200, L100.0100, L500.2500 #### [facility] [address] [place], [address] Hemoglobin (Bld) [Mass/Vol] 12.9 g/dL Normal 12.0-15.0 [facility] Comment on above: Performed By: #### L 501.5200, L100.0100, L500.2500 #### [facility] [address] [place], [address] IG% 2.000 High 0.0-0.9 [facility] Comment on above: Result Comment: IG% - Immature Granulocytes (promyelocytes, myelocytes and metamyelocytes) > 1% indicates that a LEFT SHIFT is Present. Performed By: #### L 501.5200, L100.0100, L500.2500 #### [facility] [address] [place], [address] Lymphocytes/100 WBC (Bld) 19.8 % Normal 19-41 [facility] Comment on above: Performed By: #### L 501.5200, L100.0100, L500.2500 #### [facility] [address] [place], [address] MCH (RBC) [Entitic mass] 29.4 pg Normal 27.0-32.0 [facility] Comment on above: Performed By: #### L 501.5200, L100.0100, L500.2500 #### [facility] [address] [place], [address] MCHC (RBC) [Mass/Vol] 32.9 g/dL Normal 32-36 [facility] Comment on above: Performed By: #### L 501.5200, L100.0100, L500.2500 #### [facility] [address] [place], [address] MCV (RBC) [Entitic vol] 89.3 fL Normal 81-99 [facility] Comment on above: Performed By: #### L 501.5200, L100.0100, L500.2500 #### [facility] [address] [place], [address] Monocytes/100 WBC (Bld) 10.6 % High 0-10 [facility] Comment on above: Performed By: #### L 501.5200, L100.0100, L500.2500 #### [facility] [address] [place], [address] Neutrophils/100 WBC (Bld) 59.1 % Normal 47-70 [facility] Comment on above: Performed By: #### L 501.5200, L100.0100, L500.2500 #### [facility] [address] [place], [address] Nucleated RBC (Bld) [#/Vol] 0 10*3/uL Normal 0-5 [facility] Comment on above: Performed By: #### L 501.5200, L100.0100, L500.2500 #### [facility] [address] [place], [address] Platelet mean volume (Bld) [Entitic vol] 10.2 fL Normal 6.2-12.0 [facility] Comment on above: Performed By: #### L 501.5200, L100.0100, L500.2500 #### [facility] [address] [place], [address] Platelets (Bld) [#/Vol] 317 10*3/uL Normal 150-450 [facility] Comment on above: Performed By: #### L 501.5200, L100.0100, L500.2500 #### [facility] [address] [place], [address] RBC (Bld) [#/Vol] 4.39 10*6/uL Normal 4.2-5.4 [facility] Comment on above: Performed By: #### L 501.5200, L100.0100, L500.2500 #### [facility] [address] [place], [address] RDW SD 40.2 fl Normal 35.1-43.9 [facility] Comment on above: Performed By: #### L 501.5200, L100.0100, L500.2500 #### [facility] [address] [place], [address] WBC (Bld) [#/Vol] 6.5 10*3/uL Normal 4.4-11.0 [facility] Comment on above: Performed By: #### L 501.5200, L100.0100, L500.2500 #### [facility] [address] [place], [address] Emergency Department Summary on 06-28-2024 Emergency Department Summary [facility] Medical Records Department [address] [place] [address] Emergency Department Summary 06/28/24 MR#: [id number] Acct: [id number] Name: CLARISA DE LA CRUZ Rep #: [id number] : 1990 34 From: Seferino Hugo DO [...] to come to the hospital for evaluation [facility] Medical History (Updated 06/28/24 @ 06:12 by [...] ???Medication ???Instructions ???Recorded ???Last Taken ???Type pediatric foliyiak-pvqk-vum 1 ea PO DAILY 04/26/19 0 11/30/23 [...] adopted: No household members: spouse 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 Normal [facility] Magnesiumon 06-28-2024 Magnesium [Mass/Vol] 2.2 mg/dL Normal 1.6-2.6 [facility] Comment on above: Performed By: #### L 501.5200, L100.0100, L500.2500 #### [facility] [address] [facility], [address] CTA Head AND Neck W/ Contras ton 06-27-2024 CTA Head AND Neck W/ Contrast [facility] Imaging Services [address] [place], [place] [address] CTA Head AND Neck W/ Contrast MR#: [id number] Acct: [id number] Name: CLARISA DE LA CRUZ JON Rep #: [id number] : 1990 F 34 From: Soraida Barrera MD PCP: HERON Caldwell Status: REG ER Study: CTA Head AND Neck W/ Contrast Date of Exam: Exam# [id number] Ordering Dr: Seferino Hugo DO PROCEDURE: CTA [...] NEGATIVE FOR LARGE VESSEL OCCLUSION. Reading Location: [id number] CC: HERON Encarnacion; Seferino Hugo DO Oven Heater: Signed Normal [facility] UA DIP, URINE (POC)on 2023 BILIRUBIN UA (POCT) Negative Negative [facility] CLARITY UA (POCT) Clear [facility] COLOR UA (POCT) Yellow [facility] GLUCOSE UA (POCT) Negative Negative mg/dL [facility] Hemoglobin Ql (U) Small Abnormal Negative [facility] Interpretation and review of laboratory results Abnormal [facility] KETONE UA (POCT) Negative Negative mg/dL [facility] LEUKOCYTES UA (POCT) Negative Negative [facility] NITRITE UA (POCT) Negative Negative [facility] PH UA (POCT) 5.5 4.5 - 8.0 [facility] Protein Ql (U) Negative Negative mg/dL [facility] SPECIFIC GRAVITY UA (POCT) >=1.030 1.005 - 1.030 [facility] UROBILINOGEN UA (POCT) 0.2 Normal E.U./d L [facility] Location:[facility], [address] [place], [address] [facility] POINT OF CARE [facility] Biophysical profile.mushtaq dy movement USon 11-28-2023 [facility] Radiology Study observation (narrative) [facility] URINE OB DIP B/Oon 4 Glucose Ql (U) Negative Neg mg/dL [facility] Protein.monoclonal (U) [Mass/Vol] Negative Neg mg/dL [facility] Biophysical profile.mushtaq dy movement USon 11-21-2023 [facility] Radiology Study observation (narrative) [facility] URINE OB DIP B/Oon 4 Glucose Ql (U) Negative Neg mg/dL [facility] Interpretation and review of laboratory results Normal [facility] Protein.monoclonal (U) [Mass/Vol] Negative Neg mg/dL [facility] Biophysical profile.mushtaq dy movement USon 11-15-2023 [facility] Radiology Study observation (narrative) [facility] Biophysical profile.mushtaq dy movement USon 11-07-2023 [facility] Radiology Study observation (narrative) [facility] URINE OB DIP B/Oon 4 Glucose Ql (U) Negative Neg mg/dL [facility] Interpretation and review of laboratory results Normal [facility] Protein.monoclonal (U) [Mass/Vol] Negative Neg mg/dL [facility] Biophysical profile.mushtaq dy movement USon 11-01-2023 [facility] Radiology Study observation (narrative) [facility] URINE OB DIP B/Oon 4 Glucose Ql (U) Negative Neg mg/dL [facility] Protein.monoclonal (U) [Mass/Vol] Negative Neg mg/dL [facility] Biophysical profile.mushtaq dy movement USon 10-25-2023 [facility] Radiology Study observation (narrative) [facility] URINE OB DIP B/Oon 4 Glucose Ql (U) Negative Neg mg/dL [facility] Interpretation and review of laboratory results Normal [facility] Protein.monoclonal (U) [Mass/Vol] Negative Neg mg/dL [facility] Biophysical profile.mushtaq dy movement USon 10-18-2023 [facility] Radiology Study observation (narrative) [facility] Examination level ultrasound on 10-11-2023 [facility] Radiology Study observation (narrative) [facility] No Panel InformationOrdered By: Tabby Krueger on 09-14-2023 Vaginal Amniotic Fluid Detection Negative Negative [facility] Comment on above: Amniotic fluid not p resent indicates No Rupture of FetalMembranes at time of specimen collection. UA DIP, URINE (POC)on 2023 BILIRUBIN UA (POCT) Negative Negative [facility] CLARITY UA (POCT) Clear [facility] COLOR UA (POCT) Yellow [facility] GLUCOSE UA (POCT) Negative Negative mg/dL [facility] Hemoglobin Ql (U) Negative Negative [facility] Interpretation and review of laboratory results Abnormal [facility] KETONE UA (POCT) Negative Negative mg/dL [facility] LEUKOCYTES UA (POCT) Trace Abnormal Negative [facility] NITRITE UA (POCT) Negative Negative [facility] PH UA (POCT) 6.5 4.5 - 8.0 [facility] Protein Ql (U) Negative Negative mg/dL [facility] SPECIFIC GRAVITY UA (POCT) 1.020 1.005 - 1.030 [facility] UROBILINOGEN UA (POCT) 0.2 Normal E.U./d L [facility] Location:[facility], [address] [facility], [place], [place], [address] [place] [address] POINT OF CARE [facility] URINE OB DIP B/OOrdered By: Haley Barrera on 09-07-2023 Glucose Ql (U) Negative Neg mg/dL [facility] Protein.monoclonal (U) [Mass/Vol] Negative Neg mg/dL [facility] Examination level ultrasound on 08-16-2023 [facility] URINE OB DIP B/Oon Glucose Ql (U) Negative Neg mg/dL [facility] Protein.monoclonal (U) [Mass/Vol] Negative Neg mg/dL [facility] CNOVon 08-02-2023 CNOV Office Visit (CVAKPO) CLARISA DE LA CRUZ ([id number]) 1990 F Date Time Provider Department 08/02/23 11:00 AM SNEHA CARDENAS During your visit today, we recorded the following information about you: Pulse Blood pressure Weight Height 81/minute 109/76 84.8 kg 1.715 m Sneha Cardenas APRN.CNP 08/15/2023 11:30 PM Signed [facility] Initial Visit [facility] [address] PCP: Ottoniel Encarnacion CNP [address] [place] [address] CEREBROVASCULAR HISTORY Clarisa De La Cruz is [...] On 04/23/2024 she sought evaluation at local [facility] where blood pressure was noted to be elevated 153/99. She received headache cocktail with headache resolution afterwards. She has a history of hypertension following prior with preeclampsia for which she takes labetalol 50 mg daily at the time. She underwent CT/CTA imaging without any acute findings. She was transferred to [facility] for further evaluation. MRI brain imaging [...] of Onset (more content not included)... Normal [facility] URINE OB DIP B/Oon 4 Glucose Ql (U) Negative Neg mg/dL [facility] Protein.monoclonal (U) [Mass/Vol] Negative Neg mg/dL [facility] URINE OB DIP B/Oon 4 Glucose Ql (U) Negative Neg mg/dL [facility] Protein.monoclonal (U) [Mass/Vol] Negative Neg mg/dL [facility] ULTRASOUND 1ST TRIMEST Franki 06-11-2023 ULTRASOUND 1ST [...] interval growth without obvious significant complication. Normal [facility] RPRR SEND OUTon 05-24-2023 Reagin Ab RPR Ql (S) Non-Reactive Normal Non Reactive [facility] Comment on above: Performed By: #### T ESTFT #### Performed for [facility] [address] [place], [place] [address] CBC panel Auto (Bld)on 05-23 Erythrocyte distribution width (RBC) [Entitic vol] 37.2 fL Normal 36.4-46.3 [facility] Comment on above: Performed By: #### V G #### Performed for [facility] [address] [place], [place] [address] Hematocrit (Bld) [Volume fraction] 37.2 % Normal 37.0-47.0 [facility] Comment on above: Performed By: #### V G #### Performed for [facility] [address] [place], [place] [address] Hemoglobin (Bld) [Mass/Vol] 13.4 g/dL Normal 12.0-16.0 [facility] Comment on above: Performed By: #### V G #### Performed for [facility] [address] [place], [place] [address] MCH (RBC) [Entitic mass] 30.8 pg Normal 27.0-31.0 [facility] Comment on above: Performed By: #### V G #### Performed for [place] [address] [place], [place] [address] MCHC (RBC) [Mass/Vol] 36.0 g/dL Normal 32.0-36.0 [facility] Comment on above: Performed By: #### V G #### Performed for [address] [address] MCV (RBC) [Entitic vol] 85.5 fL Normal 80.0-100.0 [facility] Comment on above: Performed By: #### V G #### Performed for [address] [address] Platelet mean volume (Bld) [Entitic vol] 10.3 fL Normal 9.0-13.0 [facility] Comment on above: Performed By: #### V G #### Performed for [place] [address] [place], [place] [address] Platelets (Bld) [#/Vol] 293 10*3/uL Normal 130-400 [facility] Comment on above: Performed By: #### V G #### Performed for [address] [address] RBC (Bld) [#/Vol] 4.35 10*6/uL Normal 4.00-6.30 [facility] Comment on above: Performed By: #### V G #### Performed for [place] [address] [place], [place] [address] WBC (Bld) [#/Vol] 9.05 10*3/uL Normal 4.80-10.80 [facility] Comment on above: Performed By: #### V G #### Performed for [facility] [address] [place], [place] [address] COMPREHENSIVE METABOLIC PANE Alexandru 05-23-2023 Creatinine [Mass/Vol] 0.62 mg/dL Normal 0.51-0.95 [facility] Comment on above: Performed By: #### 3 084-1, 76135-5 #### [facility] [address] [place], [place] [address] [employer]idential Property [employer] - Leny VAUGHN [id number] Performed By: #### T ESTFT #### Performed for [place] [address] [place], [place] [address] GFR/1.73 sq M.predicted MDRD (S/P/Bld) [Vol rate/Area] mL/min/{1.73_m2} Normal >=59 [facility] Comment on above: Performed By: #### 3 084-1, 62821-2 #### [facility] [address] [place] [address] Residential Property [employer]ant - Leny VAUGHN [id number] Performed By: #### T ESTFT #### Performed for [place] [address] [place], [place] [address] HGFR GLOMERULAR FILTRATION RATE INTERPRETATION~The eGFR is [...] months, with or without kidney damage.~ Normal [facility] Comment on above: Performed By: #### 3 084-1, 49921-5 #### [facility] [address] [place] [address] Residential Property [employer]ant - Leny VAUGHN [id number] Performed By: #### T ESTFT #### Performed for [facility] [address] [place] [address] Comprehensive metabolic 2000 panelon 05-23-2023 Albumin [Mass/Vol] 4.0 g/dL Normal 3.4-5.0 [facility] Comment on above: Performed By: #### 3 084-1, 43580-1 #### [facility] [address] [place] [address] Residential Property [employer] - Leny VAUGHN [id number] ALP [Catalytic activity/Vol] 41 U/L Low 50-136 [facility] Comment on above: Performed By: #### 3 084-1, 36555-4 #### [facility] [address] [place] [address] Residential Property [employer] - Leny GOODWINIA [id number] ALT [Catalytic activity/Vol] 20 U/L Normal 14-59 [facility] Comment on above: Performed By: #### 3 084-1, 28575-3 #### [facility] [address] [place] [address] Residential Property [employer]ant - Leny GOODWINIA [id number] Anion gap [Moles/Vol] 6.0 mmol/L Normal <=15.0 [facility] Comment on above: Performed By: #### 3 084-1, 50933-0 #### [facility] [address] [place] [address] Residential Property [employer] - Leny GOODWINIA [id number] AST [Catalytic activity/Vol] 11 U/L Low 15-37 [facility] Comment on above: Performed By: #### 3 084-1, 17208-8 #### [facility] [address] [place] [address] Residential Property [employer] - Leny GOODWINIA [id number] Bilirubin [Mass/Vol] 0.4 mg/dL Normal 0.2-1.0 [facility] Comment on above: Performed By: #### 3 084-1, 38745-4 #### [facility] [address] [place] [address] Residential Property [employer]ant - Leny GOODWINIA [id number] Calcium [Mass/Vol] 9.8 mg/dL Normal 8.5-10.1 [facility] Comment on above: Performed By: #### 3 084-1, 76118-2 #### [facility] [address] [place] [address] Residential Property [employer] - Leny GOODWINIA [id number] Chloride [Moles/Vol] 106 mmol/L Normal 98-107 [facility] Comment on above: Performed By: #### 3 084-1, #### [facility] [address] [place] [address] Residential Property [employer]ant - Leny Easton CLIA [id number] CO2 [Moles/Vol] 24 mmol/L Normal 21-32 [facility] Comment on above: Performed By: #### 3 084-1, 54030-6 #### [facility] [address] [place] [address] [employer]idential Property [employer] - Leny Easton CLIA [id number] Glucose [Mass/Vol] 92 mg/dL Normal 74-106 [facility] Comment on above: Performed By: #### 3 084-1, 53098-6 #### [facility] [address] [place] [address] Residential Property [employer] - Leny Easton CLIA [id number] Potassium [Moles/Vol] 3.5 mmol/L Normal 3.5-5.1 [facility] Comment on above: Performed By: #### 3 084-1, 77918-2 #### [facility] [address] [place] [address] Residential Property [employer]ant - Leny Easton CLIA [id number] Protein [Mass/Vol] 7.7 g/dL Normal 6.4-8.2 [facility] Comment on above: Performed By: #### 3 084-1, 85919-4 #### [address] [place] [address] Residential Property Consultant - [facility] [id number] Sodium [Moles/Vol] 136 mmol/L Normal 136-145 [facility] Comment on above: Performed By: #### 3 084-1, 98956-8 #### [address] [place] [address] Residential Property [employer]ant - [facility] [id number] Urea nitrogen [Mass/Vol] 12 mg/dL Normal 7-17 [facility] Comment on above: Performed By: #### 3 084-1, 76804-4 #### [address] [place] [address] Residential Property [employer] - [facility] [id number] Creatinine renal clearance ( 24H U+S/P) [Vol/Time]on 05-23-2023 Creatinine (U) [Mass/Vol] 73.20 mg/dL Normal [facility] Comment on above: Performed By: #### T ESTFT #### Performed for [place] [address] HEP B SURFACE Agon HBV surface Ag Ql (S) Non-Reactive Normal NONREACTIVE [facility] Comment on above: Performed By: #### T ESTFT #### Performed for [place] [address] HHBVSAG INTERPRETATION OF RESULTS A NONREACTIVE test result means that the specimen is presumed to be negative for HBsAg. A REACTIVE test result means that the specimen is reactive for HBsAg. All reactive results will be followed up with confirmatory testing. Normal [facility] Comment on above: Performed By: #### T ESTFT #### Performed for [place] [address] HEP C Ab with REFLEX CONFIRM ATIONon 05-23-2023 HEP C Ab Non-Reactive Normal [facility] Comment on above: Performed By: #### T ESTFT #### Performed for [address] [place] [address] HHCV INTERPRETATION OF RESULTS A NONREACTIVE test result means that the specimen is presumed to be negative for Hep C Ab. A REACTIVE test result means that the specimen is reactive for Hep C Ab. All reactive results will be followed up with confirmatory testing. Normal [facility] Comment on above: Performed By: #### T ESTFT #### Performed for [place] [address] [place] [address] HIV RAPID W/CONFIRMATIONon 0 05-23-2023 HHIV INTERPRETATION [...] be followed up with confirmatory testing. Normal [facility] Comment on above: Performed By: #### H IVRAP #### [place] [address] [place] [address] Residential Property [employer]ant - Leny VAUGHN [id number] HIV 1+2 Ab Ql (S) Non-Reactive Normal NON REACTIVE [facility] Comment on above: Performed By: #### H IVRAP #### [place] [address] [place] [address] Residential Property Consultant - Leny VAUGHN [id number] Non-Reactive Normal NON REACTIVE [facility] Comment on above: Performed By: #### H IVRAP #### [place] [address] [place] [address] Residential Property Consultant - Leny GOODWINIA [id number] Protein (24H U) [Mass/Time]o n 05-23-2023 Protein (U) [Mass/Vol] 8 mg/dL Normal <=12 [facility] Comment on above: Performed By: #### V G #### Performed for [place] [address] [place] [address] RUBELLA Ab IgGon 05-23-2023 Rubella virus IgG IA Ql 89.1 IU/mL Normal [facility] Comment on above: Performed By: #### V G #### Performed for [facility] [address] [place], [place] [address] Rubella virus IgG IA Qlon HRUBELLA RUBELLA IgG INTERPRETATION <5.0 IU/mL Non-immune 5.0-9.9 IU/mL Equivocal >10.0 IU/mL Immune Normal [facility] Comment on above: Performed By: #### V G #### Performed for [facility] [address] [place], [place] [address] URIC ACIDon 05-23-2023 Urate [Mass/Vol] 4.8 mg/dL Normal 2.6-6.0 [facility] Comment on above: Performed By: #### 3 084-1, 49800-9 #### [place] [address] [place], [place] [address] Residential Property [employer]ant - Leny VAUGHN [id number] URINE CREATININE CLEARANCE 2 4 HRon 05-23-2023 Creatinine renal clearance (24H U+S/P) [Vol/Time] 143 mL/min High 88-128 [facility] Comment on above: Performed By: #### T ESTFT #### Performed for [place] [address] [place], [place] [address] Specimen volume (24H U) 2 L Normal [facility] Comment on above: Performed By: #### T ESTFT #### Performed for [facility] [address] [place], [place] [address] Performed By: #### V G #### Performed for [place] [address] [place], [place] [address] URINE PROTEIN 24 HRon 2023 Protein (24H U) [Mass/Time] 150 mg/24 Hours Normal 42-225 [facility] Comment on above: Performed By: #### V G #### Performed for [facility] [address] [place], [place] [address] URINE PROTEIN to CREAT RATIO RANDOMon 05-23-2023 Creatinine (U) [Mass/Vol] 36.50 mg/dL Normal [facility] Comment on above: Performed By: #### V G #### Performed for [facility] [address] [place], [place] [address] Protein Ql (U) <5 Normal <=12 [facility] Comment on above: Performed By: #### V G #### Performed for [facility] [address] [place], [place] [address] URINE OR/CR RATIO Normal N/A-0.2 [facility] Comment on above: Performed By: #### V G #### Performed for [facility] [address] [place], [place] [address] VARICELLA-ZOSTER IgGon 05-23 HVARZOSG VARICELLA-ZOSTER IgG INTERPRETATION TV < 0.60 Negative 0.60 /= 0.90 Positive Normal [facility] Comment on above: Performed By: #### T ESTFT #### Performed for [facility] [address] [place], [place] [address] VARICELLA-ZOSTER IgG 1.40 IU/mL Normal [facility] Comment on above: Performed By: #### T ESTFT #### Performed for [facility] [address] [place], [place] [address] CHLAM GONORRHEA and TRICH NA Aon 05-18-2023 Chlamydia by GABRIELA Negative Normal Negative [facility] Comment on above: Performed By: #### V G #### Performed for [facility] [address] [place], [place] [address] Gonococcus by GABRIELA Negative Normal Negative [facility] Comment on above: Performed By: #### V G #### Performed for [facility] [address] [place], [place] [address] Trich vag by GABRIELA Negative Normal Negative [facility] Comment on above: Performed By: #### V G #### Performed for [facility] [address] [place], [place] [address] CULTURE URINEon 05-14-2023 CULTURE URINE NO PATHOGENS GROWN AFTER 2 DAYS Normal [facility] Comment on above: Performed By: #### P ROGEST, PROLAC, ESTROG, FSH #### Performed for [facility] [address] [place], [place] [address] Cardiac echo study Procedure Ordered By: Jaxson Odom on 05-06-2023 Ao ASC [facility] 1.38 [facility]: Ao peak rafia 1.60 m/s [facility] Work Phone: Ao SOV index 1.27 cm/m2 [facility] Work Phone: Ao STJ index 1.06 cm/m2 [facility] Work Phone: Ao VTI 31.29 cm [facility] Work Phone: Ascending aorta 2.70 cm [facility] Work Phone: AV LVOT peak gradient 7 mmHg [facility] Work Phone: AV mean gradient 5 mmHg [facility] Work Phone: AV peak gradient 10 mmHG [facility] Work [facility]: AV valve area 2.28 cm2 [facility] Work Phone: AV Velocity Ratio 0.80 [facility] Work Phone: RUSTY (continuity Vmax) 2.06 cm2 [facility] Work Phone: RUSTY (continuity VTI) 2.28 cm2 [facility] Work Phone: RUSTY index (continuity Vmax) 1.05 m/s [facility] Work Phone: RUSTY index (continuity VTI) 1.16 cm2/m2 [facility] Work Phone: Avg e' pk rafia 0.17 m/s [facility] Work Phone: Avg E/e' ratio 9.72 [facility] Work Phone: Body surface area Derived from formula 1.96 m2 [facility] Work Phone: BP EF 57 % [facility] Work Phone: DI (Vmax) 0.80 [facility] Work Phone: DI (VTI) 0.89 m/2 [facility] Work Phone: E wave decelartion time 215.66 msec [facility] Work Phone: e' lateral pk rafia 0.1882 m/s [facility]: e' lateral pk rafia 0.19 m/s [facility] Work [facility]: e' septal pk rafia 0.1528 m/s [facility] Work Phone: e' septal pk rafia 0.15 m/s [facility] Work Phone: E/A ratio 2.41 [facility] Work Phone: E[facility]e' [facility]: E/e' septal [facility] 10.73 [facility] Work Phone: EF SP 2CH 58 [facility] Work Phone: EF SP 4CH 57 [facility] Work Phone: EST RAP 3.00 mmHg [facility] Work Phone: EST RVSP 20 mmHg [facility] Work Phone: FS 28 % 28 - 44 % [facility] Work Phone: IVC ostium 1.12 cm [facility] Work Phone: IVS 0.97 cm [facility] Work Phone: LA AREA 2CH 13.52 cm2 [facility] Work Phone: LA area 4CH 12.55 cm2 [facility] Work Phone: LA ESV BP (MOD) 30 mL [facility] Work Phone: LA ESV BP (MOD) index 15 mL/m2 [facility] Work Phone: LA ESV SP 2CH (MOD) 33 mL [facility] Work Phone: LA ESV SP 4CH (MOD) 27 mL [facility] Work Phone: LA size 2.89 cm [facility] Work Phone: LEFT ATRIAL DIAMETER INDEX 1.47 cm/m2 [facility] Work Phone: LV EDV BP 86 mL [facility] Work Phone: LV EDV SP 2CH 78 mL [facility] Work Phone: LV EDV SP 4CH 94 mL [facility] Work Phone: LV ESV BP 37 mL [facility] Work Phone: LV ESV SP 2CH 33 mL [facility] Work Phone: LV ESV SP 4CH 40 mL [facility] Work Phone: LV mass 106.97 g [facility] Work Phone: LV Mass Index 54.6 g/m2 [facility] Work Phone: LV RWT 0.48 [facility] Work Phone: LV stroke volume BP (ml) 49 mL [facility] Work Phone: LV stroke volume index BP 25.00 mL/m2 [facility] Work Phone: LVIDD 3.79 cm [facility] Work Phone: LVIDS 2.73 cm [facility] Work Phone: LVOT area 2.57 cm2 [facility] Work Phone: LVOT diameter 1.81 cm [facility] Work Phone: LVOT peak rafia 1.28 m/s [facility] Work Phone: LVOT peak VTI 27.76 cm [facility] Work Phone: LVOT stroke volume 71 cm3 [facility] Work Phone: LVOT stroke volume index 36.42 ml/m2 [facility] Work Phone: MV pk A rafia 0.68 m/s [facility] Work Phone: MV pk E rafia 1.64 m/s [facility] Work Phone: MV stenosis pressure 1/2 time 62.54 ms [facility] Work Phone: MV valve area p 1/2 method 3.52 cm2 [facility] Work Phone: OSU AV VTI RATIO PRE STRESS 0.89 [facility] Work Phone: OSU ECHO LV BIPLANE SYSTOLIC VOLUME INDEX 18.88 mL/m2 [facility] Work Phone: OSU ECHO LV BP DIASTOLIC VOLUME INDEX 43.88 mL/m2 [facility] Work Phone: OSU RVOT VTI RATIO 0.86 [facility] Work Phone: PV mean gradient 3 mmHg [facility] Work Phone: PV peak gradient 6 mmHg [facility] Work Phone: PV PK RAFIA 1.18 m/s [facility] Work Phone: PV VTI 24.23 cm [facility] Work Phone: PW 0.91 cm [facility] Work Phone: RA area 4CH (MOD) 10.03 cm2 [facility] Work Phone: RA vol index 4CH (MOD) 9.69 mL/m2 [facility] Work Phone: Right atrium volume 4 chamber method of disks 19 mL [facility] Work Phone: RV Area diastolic 13.11 cm2 [facility] Work Phone: RV Area systolic 7.99 cm2 [facility] Work Phone: RV basal diam 2.69 cm [facility] Work Phone: RV Fractional area change 39.1 % [facility] Work Phone: RV long diam 8.36 cm [facility] Work Phone: RV mid diam 1.99 cm [facility] Work Phone: RV S' 14.30 cm/s [facility] Work Phone: RVOT peak gradient 3 mmHg [facility] Work Phone: RVOT peak rafia 0.84 m/s [facility] Work Phone: RVOT peak VTI 20.91 cm [facility] Work Phone: Sinus 2.49 cm [facility] Work Phone: STJ 2.08 cm [facility] Work Phone: Stroke Volume 71 cm/mL [facility] Work Phone: Stroke volume index 36 [facility] Work Phone: TAPSE 3.00 cm [facility] Work Phone: TR pk grad 17 mmHg [facility] Work Phone: TR pk rafia 2.04 m/s [facility] Work Phone: [facility] Work Phone: Cardiac echo study Procedure [...] The left ventricular wall motion is normal. [facility] Radiology Study observation (narrative) [facility] ECHOCARDIOGRAMon 05-06-2023 Echocardiography ? Left Ventricle: [...] Reading Role Read Date EVERTON [facility] Echo [place] 05/06/2023 Wall Scoring Score Index: 1.00 The [...] complete echocardiography (more content not included)... Normal [facility] CHEM 7 (LYTES,BUN,CREA,GLUC) on 04-24-2023 Anion gap [Moles/Vol] 11 mmol/L Normal 7- [facility] Comment on above: Performed By: #### C HM7 #### [facility] (DEFAULT) [address] [address] Chloride [Moles/Vol] 106 mmol/L Normal 98-108 [facility] Comment on above: Performed By: #### C HM7 #### [facility] (DEFAULT) [address] [address] CO2 [Moles/Vol] 23 mmol/L Normal 21-31 [facility] Comment on above: Performed By: #### C HM7 #### [facility] (DEFAULT) [address] [place] [address] Creatinine [Mass/Vol] 0.79 mg/dL Normal 0.50-1.20 [facility] Comment on above: Performed By: #### C HM7 #### [facility] (DEFAULT) [address] [place] [address] eGFR, CKD-EPI, Female > Normal >=60 [facility] Comment on above: Result Comment: Repo rted eGFR is based on the CKD-EPI 2020 equation using creatinine, age, and sex. Performed By: #### C HM7 #### [facility] (DEFAULT) [address] [place] [address] Glucose [Mass/Vol] 100 mg/dL High 70-99 [facility] Comment on above: Performed By: #### C HM7 #### [facility] (DEFAULT) [address] [place] [address] Osmolality [Osmolality] 285 mosm/kg Normal 278-305 [facility] Comment on above: Performed By: #### C HM7 #### [facility] (DEFAULT) [address] [place] [address] Potassium [Moles/Vol] 3.7 mmol/L Normal 3.5-5.0 [facility] Comment on above: Performed By: #### C HM7 #### [facility] (DEFAULT) [address] [place] [address] Sodium [Moles/Vol] 136 mmol/L Normal 135-145 [facility] Comment on above: Performed By: #### C HM7 #### [facility] (DEFAULT) [address] [place] [address] Urea nitrogen [Mass/Vol] 13 mg/dL Normal 7-25 [facility] Comment on above: Performed By: #### C HM7 #### [facility] (DEFAULT) [address] [place] [address] Urea nitrogen/Creatinine [Mass ratio] 16 mg/mg Normal [facility] Comment on above: Performed By: #### C HM7 #### [facility] (DEFAULT) [address] [place] [address] Anion gap [Moles/Vol] 11 mmol/L 7 - 17 mmol/L [facility] Chloride [Moles/Vol] 106 mmol/L 98 - 108 mmol/L [facility] CO2 [Moles/Vol] 23 mmol/L 21 - 31 mmol/L [facility] Creatinine [Mass/Vol] 0.79 mg/dL 0.50 - 1.20 mg/dL [facility] eGFR, CKD-EPI, Female - PINF [facility] Comment on above: Reported eGFR is bas ed on the CKD-EPI 2020 equation using creatinine, age, and sex. Glucose [Mass/Vol] 100 mg/dL High 70 - 99 mg/dL [facility] Interpretation and review of laboratory results Abnormal [facility] Osmolality Calc [Osmolality] 285 [facility] Potassium [Moles/Vol] 3.7 mmol/L 3.5 - 5.0 mmol/L [facility] Sodium [Moles/Vol] 136 mmol/L 135 - 145 mmol/L [facility] Urea nitrogen [Mass/Vol] 13 mg/dL 7 - 25 mg/dL [facility] Urea nitrogen/Creatinine [Mass ratio] 16 mg/mg [facility] HEMOGLOBIN A1Con 04-24-2023 Average glucose Estimated from glycated hemoglobin (Bld) [Mass/Vol] 103 mg/dL [facility] HbA1c (Bld) [Mass fraction] 5.2 % 4.7 - 5.6 % [facility] LT BLUE TOP TUBEon [facility] MR Brain WO contraston 04-24 IMPRESSION: No [...] evidence of acute infarct or mass effect. [facility] Radiology Study observation (narrative) [facility] MR Brain WO contrastOrdered By: Shameka Cobb on 04-24-2023 [facility] Work Phone: MRI BRAIN WITHOUT CONTRASTon 04-24-2023 [...] of acute infarct or mass effect. Normal [facility] PT,INR,PTTon 04-24-2023 aPTT Coag (Bld) [Time] 30.7 s Normal 24.0-34.3 [facility] Comment on above: Performed By: #### P TPTT #### [facility] (DEFAULT) [address] [place] [address] INR Coag (PPP) [Relative time] 1.0 {INR} Normal 0.9-1.1 [facility] Comment on above: Performed By: #### P TPTT #### [facility] (DEFAULT) [address] [place] [address] PT Coag (PPP) [Time] 13.3 s Normal 11.9-14.2 [facility] Comment on above: Performed By: #### P TPTT #### [facility] (DEFAULT) [address] [address] aPTT Coag (PPP) [Time] 30.7 s [facility] INR Coag (Bld) [Relative time] 1.0 {INR} 0.9 - 1.1 [facility] Interpretation and review of laboratory results Normal [facility] PT Coag (PPP) [Time] 13.3 s [facility] BETA HCG, QUANT, BLOODon HCG (Quant) Serum 22.5 mIU/mL Normal [facility] Comment on above: Result Comment: Non- [...] #### H YASMINE, MGO, C7ED, QHCGB #### [facility] (DEFAULT) [address] [address] CBC AND ELECTRONIC DIFFon Basophils (Bld) [#/Vol] 0.04 10*3/uL Normal 0.00-0.15 [facility] Comment on above: Performed By: #### John 1CB, [id number] #### [facility] (DEFAULT) [address] [address] Basophils/100 WBC (Bld) 0.5 % Normal [facility] Comment on above: Performed By: #### John 1CB, [id number] #### [facility] (DEFAULT) [address] [place] [address] DIFF STATUS Electronic Differential Normal [facility] Comment on above: Performed By: #### John 1CB, [id number] #### [facility] (DEFAULT) [address] [place] [address] Eosinophils (Bld) [#/Vol] 0.33 10*3/uL Normal 0.00-0.42 [facility] Comment on above: Performed By: #### John 1CB, [id number] #### [facility] (DEFAULT) [address] [place] [address] Eosinophils/100 WBC (Bld) 3.8 % Normal [facility] Comment on above: Performed By: #### John 1CB, [id number] #### [facility] (DEFAULT) [address] [place] [address] Hematocrit (Bld) [Volume fraction] 43.7 % Normal 34.9-44.3 [facility] Comment on above: Performed By: #### John 1CB, [id number] #### [facility] (DEFAULT) [address] [place] [address] Hemoglobin (Bld) [Mass/Vol] 14.5 g/dL Normal 11.4-15.2 [facility] Comment on above: Performed By: #### John 1CB, [id number] #### [facility] (DEFAULT) [address] [place] [address] Immature Grans % 0.1 % Normal [facility] Comment on above: Performed By: #### John 1CB, [id number] #### [facility] (DEFAULT) [address] [place] [address] Immature Grans Absolute < Normal <=0.08 [facility] Comment on above: Performed By: #### John 1CB, [id number] #### [facility] (DEFAULT) [address] [place] [address] Lymphocytes (Bld) [#/Vol] 2.17 10*3/uL Normal 1.16-3.51 [facility] Comment on above: Performed By: #### A 1CB, [id number] #### [facility] (DEFAULT) [address] [place] [address] Lymphocytes/100 WBC (Bld) 25.0 % Normal [facility] Comment on above: Performed By: #### A 1CB, [id number] #### [facility] (DEFAULT) [address] [place] [address] MCV (RBC) [Entitic vol] 89.4 fL Normal 79.6-97.7 [facility] Comment on above: Performed By: #### A 1CB, [id number] #### [facility] (DEFAULT) [address] [address] Mean Cell Hgb 29.7 pg Normal 25.9-33.9 [facility] Comment on above: Performed By: #### John 1CB, [id number] #### [facility] (DEFAULT) [address] [address] Mean Cell Hgb Conc 33.2 g/dL Normal 31.4-35.9 [facility] Comment on above: Performed By: #### John 1CB, [id number] #### [facility] (DEFAULT) [address] [address] Monocytes (Bld) [#/Vol] 0.69 10*3/uL Normal 0.22-0.87 [facility] Comment on above: Performed By: #### A 1CB, [id number] #### [facility] (DEFAULT) [address] [address] Monocytes/100 WBC (Bld) 8.0 % Normal [facility] Comment on above: Performed By: #### A 1CB, [id number] #### [facility] (DEFAULT) [address] [address] Nucleated RBC 0.0 /100 WBC Normal <=0.2 [facility] Comment on above: Performed By: #### John 1CB, [id number] #### [facility] (DEFAULT) [address] [place] [address] Platelet mean volume (Bld) [Entitic vol] 10.5 fL Normal 8.5-12.2 [facility] Comment on above: Performed By: #### John 1CB, [id number] #### [facility] (DEFAULT) [address] [place] [address] Platelets (Bld) [#/Vol] 297 10*3/uL Normal 150-393 [facility] Comment on above: Performed By: #### John 1CB, [id number] #### [facility] (DEFAULT) [address] [place] [address] RBC (Bld) [#/Vol] 4.89 10*6/uL Normal 3.91-5.04 [facility] Comment on above: Performed By: #### John WHITE, [id number] #### [facility] (DEFAULT) [address] [place] [address] RBC Distribution 11.9 % Normal 10.8-14.9 [facility] Comment on above: Performed By: #### John WHITE, [id number] #### [facility] (DEFAULT) [address] [place] [address] Segs + Bands Auto 62.6 % Normal [facility] Comment on above: Performed By: #### John 1CB, [id number] #### [facility] (DEFAULT) [address] [place] [address] Segs + Bands,Absolute Auto 5.43 K/uL Normal 1.64-7.28 [facility] Comment on above: Performed By: #### John 1CB, [id number] #### [facility] (DEFAULT) [address] [place] [address] WBC (Bld) [#/Vol] 8.67 10*3/uL Normal 3.99-11.19 [facility] Comment on above: Performed By: #### John 1CB, [id number] #### [facility] (DEFAULT) [address] [place] [address] Basophils (Bld) [#/Vol] 0.04 10*3/uL 0.00 - 0.15 K/uL [facility] Basophils/100 WBC (Bld) 0.5 % [facility] Differential cell count method Nom (Bld) Electronic Differential [facility] Eosinophils (Bld) [#/Vol] 0.33 10*3/uL 0.00 - 0.42 K/uL [facility] Eosinophils/100 WBC (Bld) 3.8 % [facility] Erythrocyte distribution width (RBC) [Ratio] 11.9 % 10.8 - 14.9 % [facility] Hematocrit (Bld) [Volume fraction] 43.7 % 34.9 - 44.3 % [facility] Hemoglobin (Bld) [Mass/Vol] 14.5 g/dL 11.4 - 15.2 g/dL [facility] Immature granulocytes (Bld) [#/Vol] K/uL NINF - 0.08 K/uL [facility] Immature granulocytes/100 WBC (Bld) 0.1 % [facility] Lymphocytes (Bld) [#/Vol] 2.17 10*3/uL 1.16 - 3.51 K/uL [facility] Lymphocytes/100 WBC (Bld) 25.0 % [facility] MCH (RBC) [Entitic mass] 29.7 pg 25.9 - 33.9 pg [facility] MCHC (RBC) [Mass/Vol] 33.2 g/dL 31.4 - 35.9 g/dL [facility] MCV (RBC) [Entitic vol] 89.4 fL 79.6 - 97.7 fL [facility] Monocytes (Bld) [#/Vol] 0.69 10*3/uL 0.22 - 0.87 K/uL [facility] Monocytes/100 WBC (Bld) 8.0 % [facility] Neutrophils (Bld) [#/Vol] 5.43 10*3/uL 1.64 - 7.28 K/uL [facility] Nucleated RBC/100 WBC (Bld) [Ratio] 0.0 % NINF [facility] Platelet mean volume (Bld) [Entitic vol] 10.5 fL 8.5 - 12.2 fL [facility] Platelets (Bld) [#/Vol] 297 10*3/uL 150 - 393 K/uL [facility] RBC (Bld) [#/Vol] 4.89 10*6/uL [facility] Segmented neutrophils/100 WBC (Bld) 62.6 % [facility] WBC (Bld) [#/Vol] 8.67 10*3/uL 3.99 - 11. 19 K/uL [facility] CBC W Auto Differential pane l (Bld)on 04-23-2023 Basophils (Bld) [#/Vol] 0.04 10*3/uL Normal <=0.70 [facility] Comment on above: Performed By: #### 5 7021-8 #### [facility] [address] [facility]. [place] [address] [employer] Leny GOODWINIA [id number] Basophils/100 WBC (Bld) 0.5 % Normal <=2.0 [facility] Comment on above: Performed By: #### 5 7021-8 #### [facility] [address] [place] [address] [employer] - Leny Easton CLIA [id number] Eosinophils (Bld) [#/Vol] 0.27 10*3/uL Normal <=0.70 [facility] Comment on above: Performed By: #### 5 7021-8 #### [facility] [address] [place] [address] [employer] - Leny Easton CLIA [id number] Eosinophils/100 WBC (Bld) 3.3 % Normal <=10.0 [facility] Comment on above: Performed By: #### 5 7021-8 #### [place] [address] [place] [address] [employer] - Leny GOODWINIA [id number] Erythrocyte distribution width (RBC) [Entitic vol] 38.9 fL Normal 36.4-46.3 [facility] Comment on above: Performed By: #### 5 7021-8 #### [facility] [address] [place], [place] [address] [place] [address] [employer] - Leny Easton CLIA [id number] Hematocrit (Bld) [Volume fraction] 41.2 % Normal 37.0-47.0 [facility] Comment on above: Performed By: #### 5 7021-8 #### [address] [place] [address] [employer] - Leny GOODWINIA [id number] Hemoglobin (Bld) [Mass/Vol] 14.2 g/dL Normal 12.0-16.0 [facility] Comment on above: Performed By: #### 5 7021-8 #### [address] [place] [address] [employer] - Leny Easton CLIA [id number] Immature granulocytes (Bld) [#/Vol] 0.03 10*3/uL Normal <=0.10 [facility] Comment on above: Performed By: #### 5 7021-8 #### [address] [facility] [facility] [place] [address] [employer] - Leny Easton CLIA [id number] Immature granulocytes/100 WBC (Bld) 0.40 % Normal <=1.50 [facility] Comment on above: Performed By: #### 5 7021-8 #### [address] [facility] [place] [address] [employer] - Leny Easton CLIA [id number] Lymphocytes (Bld) [#/Vol] 1.45 10*3/uL Normal 1.20-3.40 [facility] Comment on above: Performed By: #### 5 7021-8 #### [address] [place] [address] [employer] - Leny Easton CLIA [id number] Lymphocytes/100 WBC (Bld) 17.5 % Low 20.0-40.0 [facility] Comment on above: Performed By: #### 5 7021-8 #### [place] [address] [facility]. [place] [address] [employer] - Leny GOODWINIA [id number] MCH (RBC) [Entitic mass] 30.4 pg Normal 27.0-31.0 [facility] Comment on above: Performed By: #### 5 7021-8 #### [address] [place] [address] [employer] - Leny VAUGHN [id number] MCHC (RBC) [Mass/Vol] 34.5 g/dL Normal 32.0-36.0 [facility] Comment on above: Performed By: #### 5 7021-8 #### [address] [place] [address] [employer] - Leny GOODWINIA [id number] MCV (RBC) [Entitic vol] 88.2 fL Normal 80.0-100.0 [facility] Comment on above: Performed By: #### 5 7021-8 #### [address] [place] [address] [employer] - Leny GOODWINIA [id number] Monocytes (Bld) [#/Vol] 0.61 10*3/uL High 0.10-0.60 [facility] Comment on above: Performed By: #### 5 7021-8 #### [address] [place] [address] [employer] - Leny GOODWINIA [id number] Monocytes/100 WBC (Bld) 7.4 % Normal <=8.0 [facility] Comment on above: Performed By: #### 5 7021-8 #### [address] [place] [address] [employer] - Leny GOODWINIA [id number] Neutrophils (Bld) [#/Vol] 5.89 10*3/uL Normal 1.40-6.50 [facility] Comment on above: Performed By: #### 5 7021-8 #### [facility] [address] [place] [address] [employer] - Leny GOODWINIA [id number] Neutrophils/100 WBC (Bld) 70.9 % High 50.0-70.0 [facility] Comment on above: Performed By: #### 5 7021-8 #### [address] [place] [address] [employer] - Leny GOODWINIA [id number] Nucleated RBC (Bld) [#/Vol] 0.00 10*3/uL Normal <=0.10 [facility] Comment on above: Performed By: #### 5 7021-8 #### [address] [place] [address] [employer] - Leny VAUGHN [id number] Platelet mean volume (Bld) [Entitic vol] 10.5 fL Normal 9.0-13.0 [facility] Comment on above: Performed By: #### 5 7021-8 #### [address] [place] [address] [employer] - Leny GOODWINIA [id number] Platelets (Bld) [#/Vol] 270 10*3/uL Normal 130-400 [facility] Comment on above: Performed By: #### 5 7021-8 #### [address] [place] [address] [employer] - Leny GOODWINIA [id number] RBC (Bld) [#/Vol] 4.67 10*6/uL Normal 4.00-6.30 [facility] Comment on above: Performed By: #### 5 7021-8 #### [address] [address] [facility] [place] [address] [employer] - Leny GOODWINIA [id number] WBC (Bld) [#/Vol] 8.29 10*3/uL Normal 4.80-10.80 [facility] Comment on above: Performed By: #### 5 7021-8 #### [place] [address] [place] [address] [employer] - Leny GOODWINVIVI [id number] CHEST AP PORTABLEon 04-23-20 CHEST AP PORTABLE EXAMINATION: CHEST AP PORTABLE, 04/23/2023 8:37 AM EST HISTORY: Acute confusion COMPARISON: None. TECHNIQUE: AP portable view of the chest performed. FINDINGS: Medical devices: None. Cardiomediastinal silhouette is within normal limits. The lungs are clear. No large pleural effusion, or pneumothorax. IMPRESSION: 1. No acute cardiopulmonary abnormality. Normal [facility] 7 - EDon 04-23-2023 Anion gap [Moles/Vol] 16 mmol/L 7 - 17 mmol/L [facility] Chloride [Moles/Vol] 105 mmol/L 98 - 108 mmol/L [facility] CO2 [Moles/Vol] 21 mmol/L 21 - 31 mmol/L [facility] Creatinine [Mass/Vol] 0.79 mg/dL 0.50 - 1.20 mg/dL [facility] eGFR, CKD-EPI, Female - PINF [facility] Comment on above: Reported eGFR is bas ed on the CKD-EPI 2020 equation using creatinine, age, and sex. Glucose [Mass/Vol] 105 mg/dL High 70 - 99 mg/dL [facility] Interpretation and review of laboratory results Abnormal [facility] Osmolality Calc [Osmolality] 289 [facility] Potassium [Moles/Vol] 3.8 mmol/L 3.5 - 5.0 mmol/L [facility] Sodium [Moles/Vol] 138 mmol/L 135 - 145 mmol/L [facility] Urea nitrogen [Mass/Vol] 13 mg/dL 7 - 25 mg/dL [facility] Urea nitrogen/Creatinine [Mass ratio] 16 mg/mg [facility] Anion gap [Moles/Vol] 16 mmol/L Normal 7-17 [facility] Comment on above: Performed By: #### H YASMINE, MGO, C7ED, QHCGB #### [facility] (DEFAULT) [address] [place] [address] Chloride [Moles/Vol] 105 mmol/L Normal 98-108 [facility] Comment on above: Performed By: #### H YASMINE, MGO, C7ED, QHCGB #### [facility] (DEFAULT) [address] [place] [address] CO2 [Moles/Vol] 21 mmol/L Normal 21-31 [facility] Comment on above: Performed By: #### H YASMINE, MGO, C7ED, QHCGB #### [facility] (DEFAULT) [address] [place] [address] Creatinine [Mass/Vol] 0.79 mg/dL Normal 0.50-1.20 [facility] Comment on above: Performed By: #### H YASMINE, MGO, C7ED, QHCGB #### [facility] (DEFAULT) [address] [place] [address] eGFR, CKD-EPI, Female > Normal >=60 [facility] Comment on above: Result Comment: Repo rted eGFR is based on the CKD-EPI 2020 equation using creatinine, age, and sex. Performed By: #### H YASMINE, MGO, C7ED, QHCGB #### [facility] (DEFAULT) [address] [place] [address] Glucose [Mass/Vol] 105 mg/dL High 70-99 [facility] Comment on above: Performed By: #### H YASMINE, MGO, C7ED, QHCGB #### [facility] (DEFAULT) [address] [place] [address] Osmolality [Osmolality] 289 mosm/kg Normal 278-305 [facility] Comment on above: Performed By: #### H YASMINE, MGO, C7ED, QHCGB #### [facility] (DEFAULT) [address] [place] [address] Potassium [Moles/Vol] 3.8 mmol/L Normal 3.5-5.0 [facility] Comment on above: Performed By: #### H YASMINE, MGO, C7ED, QHCGB #### [facility] (DEFAULT) [address] [place] [address] Sodium [Moles/Vol] 138 mmol/L Normal 135-145 [facility] Comment on above: Performed By: #### H YASMINE, MGO, C7ED, QHCGB #### [facility] (DEFAULT) [address] [place] [address] Urea nitrogen [Mass/Vol] 13 mg/dL Normal 7-25 [facility] Comment on above: Performed By: #### H YASMINE, MGO, C7ED, QHCGB #### [facility] (DEFAULT) [address] [place] [address] Urea nitrogen/Creatinine [Mass ratio] 16 mg/mg Normal [facility] Comment on above: Performed By: #### H YASMINE, MGO, C7ED, QHCGB #### [facility] (DEFAULT) [address] [place] [address] CTA HEAD AND NECKon 04-23 CT [...] acute findings on noncontrast head CT. Normal [facility] Comprehensive metabolic 2000 panelon 04-23-2023 Albumin [Mass/Vol] 4.4 g/dL Normal 3.4-5.0 [facility] Comment on above: Performed By: #### T ESTFT #### Performed for [facility] [address] [place], [place] [address] ALP [Catalytic activity/Vol] 45 U/L Low 50-136 [facility] Comment on above: Performed By: #### T ESTFT #### Performed for [facility] [address] [place], [place] [address] ALT [Catalytic activity/Vol] 21 U/L Normal 14-59 [facility] Comment on above: Performed By: #### T ESTFT #### Performed for [facility] [address] [place], [place] [address] Anion gap [Moles/Vol] 6.0 mmol/L Normal <=15.0 [facility] Comment on above: Performed By: #### T ESTFT #### Performed for [facility] [address], [place] [address] AST [Catalytic activity/Vol] 16 U/L Normal 15-37 [facility] Comment on above: Performed By: #### T ESTFT #### Performed for [facility] [address] [place], [place] [address] Bilirubin [Mass/Vol] 0.6 mg/dL Normal 0.2-1.0 [facility] Comment on above: Performed By: #### T ESTFT #### Performed for [facility] [address] [place], [place] [address] Calcium [Mass/Vol] 9.6 mg/dL Normal 8.5-10.1 [facility] Comment on above: Performed By: #### T ESTFT #### Performed for [facility] [address] [place], [place] [address] Chloride [Moles/Vol] 106 mmol/L Normal 98-107 [facility] Comment on above: Performed By: #### T ESTFT #### Performed for [facility] [address] [place], [place] [address] CO2 [Moles/Vol] 26 mmol/L Normal 21-32 [facility] Comment on above: Performed By: #### T ESTFT #### Performed for [facility] [address] [place], [place] [address] Creatinine [Mass/Vol] 0.80 mg/dL Normal 0.51-0.95 [facility] Comment on above: Performed By: #### T ESTFT #### Performed for [facility] [address] [place], [place] [address] GFR/1.73 sq M.predicted MDRD (S/P/Bld) [Vol rate/Area] mL/min/{1.73_m2} Normal >=59 [facility] Comment on above: Performed By: #### T ESTFT #### Performed for [facility] [address] [place], [place] [address] Glucose [Mass/Vol] 94 mg/dL Normal 74-106 [facility] Comment on above: Performed By: #### T ESTFT #### Performed for [facility] [address] [place], [place] [address] HGFR GLOMERULAR FILTRATION RATE INTERPRETATION~The eGFR is [...] months, with or without kidney damage.~ Normal [facility] Comment on above: Performed By: #### T ESTFT #### Performed for [address] [address] Potassium [Moles/Vol] 4.2 mmol/L Normal 3.5-5.1 [facility] Comment on above: Performed By: #### T ESTFT #### Performed for [address] [address] Protein [Mass/Vol] 8.2 g/dL Normal 6.4-8.2 [facility] Comment on above: Performed By: #### T ESTFT #### Performed for [address] [address] Sodium [Moles/Vol] 138 mmol/L Normal 136-145 [facility] Comment on above: Performed By: #### T ESTFT #### Performed for [address] [address] Urea nitrogen [Mass/Vol] 15 mg/dL Normal 7-17 [facility] Comment on above: Performed By: #### T ESTFT #### Performed for [address] [address] HCG ( test) Ql HCG.beta subunit [Moles/Vol] 22.5 mmol/L mIU/mL [facility] Comment on above: Non-: <10 mI U/mL Postmenopause: <10 mIU/mL Male: <10 mIU/mL FEMALE GESTATIONAL AGE 2-4 Weeks: 39.1-8,388 mIU/mL 5-6 Weeks: 861-88,769 mIU/mL 6-8 Weeks: 8,636-218,085 mIU/mL 8-10 Weeks: 18,700-244,467 mIU/mL 10-12 Weeks: 23,143-181,899 mIU/mL 13-27 Weeks: 6,303-97,171 mIU/mL 24-40 Weeks: 4,360-74,883 mIU/mL Test results cannot be interpreted as absolute evidence for the presence or absence of malignant disease. [facility] HCG BLOODon 04-23-2023 HCG.beta subunit Qn 15 m[IU]/mL High 1-3 [facility] Comment on above: Performed By: #### T ESTFT #### Performed for [facility] [address] [place], [place] [address] HCG.beta subunit Qnon 2022 [facility] HCG INTERPRETATION The expected values were calculated [...] 6-8 weeks 15,000-200,000 2-3 months 10,000-100,000 Normal [facility] Comment on above: Performed By: #### T ESTFT #### Performed for [facility] [address] [place], [place] [address] HEMOGLOBIN A1Con 04-23-2023 Glucose [Mass/Vol] 103 mg/dL Normal [facility] Comment on above: Performed By: #### A 1CB, [id number] #### [facility] (DEFAULT) [address] [place] [address] Hemoglobin A1C HPLC 5.2 % Normal 4.7-5.6 [facility] Comment on above: Performed By: #### A 1CB, [id number] #### [facility] (DEFAULT) [address] [place] [address] LIPID PANEL W CALCULATED LDL on 04-23-2023 Cholesterol [Mass/Vol] 163 mg/dL NINF - 200 mg/dL [facility] Comment on above: [<200 mg/dL: Desirab le] [200-239 mg/dL: Borderline High] [>239 mg/dL: High] Cholesterol in HDL [Mass/Vol] 51 mg/dL 40 - PINF mg/dL [facility] Comment on above: [<40 mg/dL: Low (Hig h Risk)] [>59 mg/dL: High (Low Risk)] Cholesterol in LDL [Mass/Vol] 75 mg/dL 0 - 99 mg/dL [facility] Comment on above: [<100 mg/dL: Optimal ] [100-129 mg/dL: Near Optimal] [130-159 mg/dL: Borderline High] [160-189 mg/dL: High] [>189 mg/dL: Very High] Cholesterol non HDL [Mass/Vol] 112 mg/dL NINF - 130 mg/dL [facility] Cholesterol.total/Chol esterol in HDL [Mass ratio] 3.2 {ratio} NINF - 4.5 [facility] Interpretation and review of laboratory results Abnormal [facility] Triglyceride [Mass/Vol] 185 mg/dL High NINF - 150 mg/dL [facility] Comment on above: [<150 mg/dL: Desirab le] [150-199 mg/dL: Borderline] [200-499 mg/dL: High] [>500 mg/dL: Very High] Calculated LDL Cholesterol 75 mg/dL Normal 0-99 [facility] Comment on above: Result Comment: [<10 0 mg/dL: Optimal] [100-129 mg/dL: Near Optimal] [130-159 mg/dL: Borderline High] [160-189 mg/dL: High] [>189 mg/dL: Very High] Performed By: #### H YASMINE, MGO, C7ED, QHCGB #### [facility] (DEFAULT) [address] [address] Cholesterol [Mass/Vol] 163 mg/dL Normal <200 [facility] Comment on above: Result Comment: [<20 0 mg/dL: Desirable] [200-239 mg/dL: Borderline High] [>239 mg/dL: High] Performed By: #### H YASMINE, MGO, C7ED, QHCGB #### [facility] (DEFAULT) [address] [place] [address] Cholesterol in HDL [Mass/Vol] 51 mg/dL Normal >=40 [facility] Comment on above: Result Comment: [<40 mg/dL: Low (High Risk)] [>59 mg/dL: High (Low Risk)] Performed By: #### H YASMINE, MGO, C7ED, QHCGB #### [facility] (DEFAULT) [address] [place] [address] Non HDL Cholesterol 112 mg/dL Normal <130 [facility] Comment on above: Performed By: #### H YASMINE, MGO, C7ED, QHCGB #### [facility] (DEFAULT) [address] [place] [address] Total Cholesterol/HDL Ratio 3.2 Normal <4.5 [facility] Comment on above: Performed By: #### H YASMINE, MGO, C7ED, QHCGB #### [facility] (DEFAULT) [address] [place] [address] Triglyceride [Mass/Vol] 185 mg/dL High <150 [facility] Comment on above: Result Comment: [<15 0 mg/dL: Desirable] [150-199 mg/dL: Borderline] [200-499 mg/dL: High] [>500 mg/dL: Very High] Performed By: #### H YASMINE, MGO, C7ED, QHCGB #### [facility] (DEFAULT) [address] [place] [id number] MAGNESIUMon 04-23-2023 Interpretation and review of laboratory results Normal [facility] Magnesium [Mass/Vol] 2.2 mg/dL 1.6 - 2.6 mg/dL [facility] Magnesium [Mass/Vol] 2.2 mg/dL Normal 1.6-2.6 [facility] Comment on above: Performed By: #### H YASMINE, MGO, C7ED, QHCGB #### [facility] (DEFAULT) [address] [place] [address] Magnesium [Mass/Vol] 2.2 mg/dL Normal 1.6-2.6 [facility] Comment on above: Performed By: #### T ESTFT #### Performed for [address] [address] No Panel Informationon 04-23 [facility] PT and aPTT panel Coag (PPP) on 04-23-2023 aPTT Coag (PPP) [Time] 30.7 s Normal 23.5-31.3 [facility] Comment on above: Performed By: #### P ROGEST, PROLAC, ESTROG, FSH #### Performed for [address] [address] HPTINR INR REFERENCE RANGE INTERPRETATION Patients on Coumadin 2.0 - 3.0 Patients with mechanical heart valves 2.5 - 3.5 Normal [facility] Comment on above: Performed By: #### P ROGEST, PROLAC, ESTROG, FSH #### Performed for [address] [address] INR Coag (PPP) [Relative time] 1.0 {INR} Normal 0.8-1.1 [facility] Comment on above: Performed By: #### P ROGEST, PROLAC, ESTROG, FSH #### Performed for [address] [address] PT Coag (PPP) [Time] 10.7 s Normal 9.3-11.5 [facility] Comment on above: Performed By: #### P ROGEST, PROLAC, ESTROG, FSH #### Performed for [address] [address] TROPONIN HIGH SENSITIVITYon 04-23-2023 TNIH 3.60 pg/mL Normal <=59.00 [facility] Comment on above: Result Comment: <59 pg/mL is considered a negative result. Performed By: #### P ROGEST, PROLAC, ESTROG, FSH #### Performed for [address] [place], [place] [address] TNIH <3.00 Normal <=59.00 [facility] Comment on above: Result Comment: <59 pg/mL is considered a negative result. Performed By: #### P ROGEST, PROLAC, ESTROG, FSH #### Performed for [facility] [address] [place], [place] [address] URINALYSIS with reflex to CU LTUREon 04-23-2023 Bacteria LM Ql (Urine sed) Negative Normal TRACE [facility] Comment on above: Performed By: #### V G #### Performed for [facility] [address] [place], [place] [address] Bilirubin (U) [Mass/Vol] Negative Normal NEGATIVE [facility] Comment on above: Performed By: #### V G #### Performed for [facility] [address] [place], [place] [address] Clarity (U) CLEAR Normal CLEAR [facility] Comment on above: Performed By: #### V G #### Performed for [facility] [address] [place], [place] [address] Color (U) YELLOW Normal YELLOW [facility] Comment on above: Performed By: #### V G #### Performed for [place] [place], [place] [address] Glucose Test strip (U) [Mass/Vol] Negative Normal NEGATIVE [facility] Comment on above: Performed By: #### V G #### Performed for [facility] [address] [place], [place] [address] HMICRO MICROSCOPIC Normal [facility] Comment on above: Performed By: #### V G #### Performed for [facility] [address] [place], [place] [address] Hyaline casts (Urine sed) [#/Area] 0-8 Normal 0-8 [facility] Comment on above: Performed By: #### V G #### Performed for [address] [place], [place] [address] Ketones (U) [Mass/Vol] Negative Normal NEGATIVE [facility] Comment on above: Performed By: #### V G #### Performed for [facility] [address] [place], [place] [address] Leukocyte esterase Qn (U) Negative Normal TRACE [facility] Comment on above: Performed By: #### V G #### Performed for [facility] [address] [place], [place] [address] Nitrite Ql (U) Negative Normal NEGATIVE [facility] Comment on above: Performed By: #### V G #### Performed for [facility] [address] [place], [place] [address] pH (U) 5.5 [pH] Normal 5.5-7.5 [facility] Comment on above: Performed By: #### V G #### Performed for [facility] [address] [place], [place] [address] Protein (U) [Mass/Vol] Negative Normal NEGATIVE [facility] Comment on above: Performed By: #### V G #### Performed for [facility] [address] [place], [place] [address] RBC (U) [#/Vol] TRACE Abnormal NEGATIVE [facility] Comment on above: Performed By: #### V G #### Performed for [facility] [address] [place], [place] [address] RBC LM.HPF (Urine sed) [#/Area] 0-4 Normal 0-4 [facility] Comment on above: Performed By: #### V G #### Performed for [address] [place], [place] [address] Specific gravity (U) [Rel density] 1.012 Normal 1.010-1.035 [facility] Comment on above: Performed By: #### V G #### Performed for [facility] [address] [place], [place] [address] SQUAMOUS EPITHELIALS 0-5 Normal 0-5 [facility] Comment on above: Performed By: #### V G #### Performed for [address] [address] Urobilinogen Qn (U) 0.2 {Margot'U}/dL Normal <=1.0 [facility] Comment on above: Performed By: #### V G #### Performed for [facility] [address] [place], [place] [address] WBC LM.HPF (Urine sed) [#/Area] 0-5 Normal 0-5 [facility] Comment on above: Performed By: #### V G #### Performed for [facility] [address] [place], [place] [address] URINE QUALITATIVEo n 04-23-2023 HCG ( test) Ql (U) Negative Normal NEGATIVE [facility] Comment on above: Performed By: #### V G #### Performed for [facility] [address] [place], [place] [address] TESTOSTERONE FREE and TOTALo n 03-23-2023 % Free Testosterone 1.91 % Normal 0.50-2.80 [facility] Comment on above: Result Comment: Perf ormed at: BN Performed By: #### T ESTFT #### Performed for [facility] [address] [place], [place] [address] Testosterone [Mass/Vol] 8 ng/dL Normal 8-60 [facility] Comment on above: Result Comment: Perf ormed at: CB Performed By: #### T ESTFT #### Performed for [facility] [address] [place], [place] [address] Testosterone,Free 0.15 ng/dL Normal 0.10-0.85 [facility] Comment on above: Result Comment: Perf ormed at: BN Performed By: #### T ESTFT #### Performed for [place] [address] [place], [place] [address] ESTROGENon 03-22-2023 Estrogens, Total 240 pg/mL Normal [facility] Comment on above: Result Comment: Prep ubertal < 40 Female Cycle: 1-10 Days 16 - 328 11-20 Days 34 - 501 21-30 Days 48 - 350 Post-Menopausal 40 - 244 Performed By: #### P ROGEST, PROLAC, ESTROG, FSH #### Performed for [address] [place] [address] [place], [place] [address] VAGINITIS VG NUSWABon 2022 Atopobium vaginae Low - 0 Normal [facility] Comment on above: Performed By: #### V G #### Performed for [facility] [address] [place], [place] [address] BVAB 2 Low - 0 Normal [facility] Comment on above: Performed By: #### V G #### Performed for [address] [place] [address] [place], [place] [address] Sarita albicans, GABRIELA Positive Abnormal Negative [facility] Comment on above: Performed By: #### V G #### Performed for [facility] [address] [place], [place] [address] Sarita glabrata, GABRIELA Negative Normal Negative [facility] Comment on above: Performed By: #### V G #### Performed for [place] [address] Megasphaera 1 Low - 0 Normal [facility] Comment on above: Result Comment: Calc [...] developed and its performance characteristics determined by [employer]. It has not been cleared or approved by the Food and Drug Administration. Performed By: #### V G #### Performed for [place] [address] Trich vag by GABRIELA Negative Normal Negative [facility] Comment on above: Performed By: #### V G #### Performed [address] [address] FSHon 03-19-2023 FSH 5.5 mIU/mL Normal [facility] Comment on above: Result Comment: Adul t Female Range Follicular phase 3.5 - 12.5 Ovulation phase 4.7 - 21.5 Luteal phase 1.7 - 7.7 Postmenopausal 25.8 - 134.8 Performed By: #### P ROGEST, PROLAC, ESTROG, FSH #### Performed for [place] [address] PROGESTERONEon 03-19-2023 Progesterone 0.1 ng/mL Normal [facility] Comment on above: Result Comment: Foll icular phase 0.1 - 0.9 Luteal phase 1.8 - 23.9 Ovulation phase 0.1 - 12.0 First trimester 11.0 - 44.3 Second trimester 25.4 - 83.3 Third trimester 58.7 - 214.0 Postmenopausal 0.0 - 0.1 Performed By: #### P ROGEST, PROLAC, ESTROG, FSH #### Performed for [address] [address] PROLACTINon 03-19-2023 Prolactin 15.2 ng/mL Normal 4.8-23.3 [facility] Comment on above: Performed By: #### P ROGEST, PROLAC, ESTROG, FSH #### Performed for [address] [address] HCG BLOODon 03-17-2023 HCG.beta subunit Qn m[IU]/mL Normal 1-3 [facility] Comment on above: Performed By: #### T ESTFT #### Performed for [address] [address] HCG.beta subunit Qnon 2022 [facility] HCG INTERPRETATION The expected values were calculated [...] 6-8 weeks 15,000-200,000 2-3 months 10,000-100,000 Normal [facility] Comment on above: Performed By: #### T ESTFT #### Performed for [address] [address] PT Coag (PPP) [Time]on 03-17 HPTINR INR REFERENCE RANGE INTERPRETATION Patients on Coumadin 2.0 - 3.0 Patients with mechanical heart valves 2.5 - 3.5 Normal [facility] Comment on above: Performed By: #### P ROGEST, PROLAC, ESTROG, FSH #### Performed for [address] [place], [place] [address] INR Coag (PPP) [Relative time] 1.0 {INR} Normal 0.8-1.1 [facility] Comment on above: Performed By: #### P ROGEST, PROLAC, ESTROG, FSH #### Performed for [address] [place], [place] [address] PT with INRon 03-17-2023 PT Coag (PPP) [Time] 10.2 s Normal 9.3-11.5 [facility] Comment on above: Performed By: #### P ROGEST, PROLAC, ESTROG, FSH #### Performed for [address] [address] THYROID CASCADE PROFILEon TSH Qn 1.010 uIU/mL Normal 0.358-3.740 [facility] Comment on above: Performed By: #### P ROGEST, PROLAC, ESTROG, FSH #### Performed for [address] [address] ANES POSTPROC EVALon 022 ANES POSTPROC EVAL HNO ID: [id number] Author: Mando Forde MD Service: Anesthesiology Author Type: Anesthesiologist Type: Anesthesia Postprocedure Evaluation Filed: 06/26/2021 2:21 PM Note Text: POST ANESTHESIA EVALUATION NOTE : 1990 Procedure Summary Date: 06/26/21 Room / Location: [place]05 [place] Anesthesia Start: 1240 Anesthesia Stop: 1350 [...] June 26, 2021 TIME: 2:21 PM CSN: [id number] [facility] ANES PRE-OPon 06-26-2021 ANES PRE-OP HNO ID: [id number] Author: Rafael Justice MD Service: Anesthesiology Author Type: Anesthesiologist Type: Anesthesia Preprocedure Evaluation Filed: 06/26/2021 10:42 AM Note Text: ANESTHESIOLOGY DAY OF SURGERY NOTE : 1990 Procedure Information Date/Time: 06/26/21 1135 Procedure: LAPAROSCOPIC CHOLECYSTECTOMY (N/A ) Location: [place] [address] / [place] Surgeons: Hillary Covarrubias MD Estimated body [...] June 26, 2021 TIME: 10:42 AM CSN: [id number] [facility] BRIEF OP NOTon 06-26-2021 BRIEF OP NOT HNO ID: [id number] Author: Hillary Covarrubias MD Service: General Surgery Author Type: Physician Type: Brief Op Note Filed: 06/26/2021 1:42 PM Note Text: BRIEF OPERATIVE NOTATION FOR SURGICAL PROCEDURE. Clarisa De La Cruz 1990 [id number] female LOG ID: [id number] Surgery/Procedure Date: 06/26/2021 Incision/Procedure Start Time: 12:58 PM Incision Close/Procedure End Time: 1:37 PM Surgeon(s)/Procedura list(s) and Plywood Stock Grader(s): Surgeon(s) and Role: * Hillary Covarrubias MD - Primary Nurse Practitioner: Ita Merchant APRN.FORMING AND ASSEMBLING SUPERVISOR Registered Nurse Screen Vent Binder: Cari Boothe RN REFERRING PHYSICIAN: Outpatient DEPT: [facility] PROVIDER: Marilin POS: [id number] ANESTHESIA: General ASA CLASS: 2 - mild DIAGNOSIS: biliary colic PROCEDURE: LAPAROSCOPIC CHOLECYSTECTOMY WITH INTRAOPERATIVE CHOLEANGIOGRAM - [id number] IVF: 600 EBL: 15 Specimens: gallbladder ADDITIONAL DIAGNOSES: FINDINGS: small stone flushed with cholangiogram COMPLICATIONS: None PMHx - PAST MEDICAL HISTORY Diagnosis Date - Arachnoid cyst - Lyme disease - Mesenteric lymphadenitis - POTS (postural orthostatic tachycardia syndrome) COMORBIDITIES - None Post Op Occurrences - None Wound Classification - Clean Contaminated Operative note dictated in the dictation system. - [id number] Hillary Covarrubias MD [facility] HISTORY PHYSICALon HISTORY PHYSICAL HNO ID: [id number] Author: Hillary Covarrubias MD Service: General Surgery [...] NURSING PROGon 06-26-2021 NURSING PROG HNO ID: [id number] Author: Geovanna Ortiz RN Service: Nursing Author Type: Registered Nurse Type: Nursing Progress Note Filed: 06/26/2021 3:48 PM Note Text: Nursing Progress Note Patient Name: Clarisa De La Cruz Patient Location: [place] Surgery up to bathroom to void, with pt, splinting dicussed able to void. This note was completed by: Geovanna Ortiz [facility] OPERATIVE NOon 06-26-2021 OPERATIVE NO HNO ID: [id number] Author: Hillary Covarrubias MD Service: General Surgery Author Type: Physician Type: Operative Report Filed: 06/26/2021 7:14 PM Note Text: [facility] - Operative Report CLARISA DE LA CRUZ : 1990 AGE: 31. SEX: F PATIENT TYPE: [place] [facility] [place] [facility] LOCATION: [facility] ATTENDING PHYSICIAN: HILLARY COVARRUBIAS M.D. CSN NUMBER: [id number] DATE OF SURGERY/PROCEDURE: 06/26/2021 INCISION/PROCEDURE START TIME: 12:58 p.m. INCISION CLOSE/PROCEDURE END TIME: 1:37 p.m. PREOPERATIVE DIAGNOSIS: Biliary colic. POSTOPERATIVE DIAGNOSIS: Biliary colic, intraoperative cholangiogram showed what was felt to be likely a small stone or air bubble which passed during the cholangiogram. SURGEON: Hillary Covarrubias M.D. TICKET MACHINE OPERATOR: Ita Merchant CNP. SURGERY/PROCEDURE: Laparoscopic cholecystectomy with intraoperative cholangiogram. ANESTHESIA: General endotracheal. LOG ID: [id number]. ANESTHESIOLOGIST: Mando Pisano. ASA: 2. INTRAVENOUS FLUIDS: [...] removed through both port site. 0 PDS [id number] sutures placed in the umbilical port site [...] recovery stable condition. Ita Merchant was my teachers' assistant. She assisted in visualization, retraction, and performed subcuticular closure. There were no qualified surgeons or residents available. Hillary Covarrubias M.D. RG:[id number] /[id number] Normal [facility] SURGICAL PATHOLOGYon 022 SURGICAL PATHOLOGY Specimen originated from [facility] Specimen #: [id number] Submitting Physician: Hillary Covarrubias M.D. FINAL DIAGNOSIS [...] cm wall thickness. There is which was risk control representative sections are submitted in cassette A1. SBP 06/26/2021 Gross examination performed at [facility], [address] [place] [address] Date of Report: 06/30/2021 Date of Procedure: 06/26/2021 Date of Receipt: 06/26/2021 Submitted by: Hillary Covarrubias M.D. Location: [facility] Diagnostic interpretation performed at [facility], [address] [place] [address]. CLIA Number: [id number] [facility] XR CHOLANGIOGRAM INTRAOPon [...] Area Product (DAP): Fluoro time: 0:29 min:sec Oven Heater: PSCTorey Transcribe Date/Time: Jun 26 2021 3:24P [...] above: Performed By: #### H ACUTP #### [facility] Routine Lab [address] [place], [place] [address] Hepatitis A Ab IgM NEGAT Normal Negative [facility] Comment on above: Performed By: #### H ACUTP #### [facility]ine [facility] [address] [place], [place] [address] HBsAg NEGAT Normal Negative [facility] Comment on above: Performed By: #### H ACUTP #### [facility]ine [facility] [address] [place], [place] [address] Hepatitis C Ab IA NEGAT Normal Negative [facility] Comment on above: Performed By: #### H ACUTP #### [facility]ine [facility] [address] [place], [place] [address] CT PULMONARY ARTERIESon 02-08 CT PULMONARY ARTERIES [...] Sat Mar 07, 2021 6:31:44 PM EDT [facility] Comment on above: Order Comment: Injur y/Trauma or Illness?:Illness/Other How long have you had these symptoms (acute/chronic)?:Acute Reason for exam?:Pulmonary embolism (PE) suspected, high prob, delivered baby 10/6, CP, SOB Type of Exam?:Initial Additional signs and symptoms?:Pulmonary embolism (PE) suspected, high prob, delivered baby 10/6, CP, SOB CULTURE URINEon 01-28-2021 CULTURE URINE CULTURE URINE --> Status: F Normal urogenital kerri present. Normal [facility] Comment on above: Performed By: #### C /UR ####[facility] [place] [address] Group B Strep Screen PCRon 0 01-28-2021 Group B Strep Screen PCR Group B Strep Screen PCR --> Status: F NEGATIVE Expected Result: Negative CDC guidelines for prevention of Group B Strep disease recommends collection of both vaginal and rectal specimens for optimal recovery of GBS. Methodology - Real Time PCR (CepSwrveid) Expected Result: Negative CDC guidelines for prevention of Group B Strep disease recommends collection of both vaginal and rectal specimens for optimal recovery of GBS. Methodology - Real Time PCR (CepSwrveid) Normal [facility] Comment on above: Performed By: #### G BSPC ####[facility] [place] [address] Chlamydia and GC PCR Panelon 01-27-2021 Chlamydia and GC PCR Panel Chlamydia trachomatis PCR --> Status: F NOT Detected Chlamydia trachomatis Nucleic Acid NOT Detected by DNA Amplification using the [employer] System. Culture is the only recommended test in medical-legal cases such as suspected child abuse or molestation. Chlamydia trachomatis Nucleic Acid NOT Detected by DNA Amplification using the CepSwrveid System. Culture is the only recommended test in medical-legal cases such as suspected child abuse or molestation. Neisseria gonorrhoeae PCR --> Status: F NOT Detected Neisseria gonorrhoeae Nucleic Acid NOT Detected by DNA Amplification using the [employer] System. Culture is the only recommended test in medical-legal cases such as suspected child abuse or molestation. Neisseria gonorrhoeae Nucleic Acid NOT Detected by DNA Amplification using the CepSwrveid System. Culture is the only recommended test in medical-legal cases such as suspected child abuse or molestation. Normal [facility] Comment on above: Performed By: #### C TNGP ####[facility] [place], [place] Comp Metabolic Panelon 01-27 ALP [Catalytic activity/Vol] 100 U/L Normal 38-126 [facility] Comment on above: Performed By: #### C MP3, HEMOG #### [facility] [address] [place], [place] ALT [Catalytic activity/Vol] 18 U/L Normal 0-34 [facility] Comment on above: Result Comment: The ALT test is performed by an updated assay method. Please note that the reference intervals have been changed and are now sex specific. Performed By: #### C MP3, HEMOG #### [facility] [address] [place], [place] Calcium [Mass/Vol] 9.4 mg/dL Normal 8.4-10.4 [facility] Comment on above: Performed By: #### C MP3, HEMOG #### [facility] [address], [place] Glucose [Mass/Vol] 96 mg/dL Normal 70-100 [facility] Comment on above: Performed By: #### C MP3, HEMOG #### [facility] [address], [place] Urea nitrogen [Mass/Vol] 11 mg/dL Normal 9-20 [facility] Comment on above: Performed By: #### C MP3, HEMOG #### [facility] [address], [place] Anion gap [Moles/Vol] 10 mmol/L Normal 3-13 [facility] Comment on above: Performed By: #### C MP3, HEMOG #### [facility] [address], [place] AST [Catalytic activity/Vol] 30 U/L Normal 15-46 [facility] Comment on above: Performed By: #### C MP3, HEMOG #### [facility] [address], [place] Bilirubin [Mass/Vol] 0.4 mg/dL Normal 0.2-1.3 [facility] Comment on above: Performed By: #### C MP3, HEMOG #### [facility] [address], [place] CO2 [Moles/Vol] 19 mmol/L Low 22-30 [facility] Comment on above: Performed By: #### C MP3, HEMOG #### [facility] [address], [place] Creatinine [Mass/Vol] 0.47 mg/dL Low 0.52-1.25 [facility] Comment on above: Performed By: #### C MP3, HEMOG #### [facility] [address], [place] eGFR OTHER > 90.0 Normal >60 [facility] Comment on above: Result Comment: KDIG O [...] Performed By: #### C MP3, HEMOG #### [place] [address] [place] [address] GFR/1.73 sq M.predicted among blacks MDRD (S/P/Bld) [Vol rate/Area] mL/min/{1.73_m2} Normal >60 [facility] Comment on above: Performed By: #### C MP3, HEMOG #### [place] [address] [place] [address] Protein [Mass/Vol] 7.2 g/dL Normal 6.3-8.2 [facility] Comment on above: Performed By: #### C MP3, HEMOG #### [place] [address] [place] [address] Potassium [Moles/Vol] 3.7 mmol/L Normal 3.5-5.1 [facility] Comment on above: Performed By: #### C MP3, HEMOG #### [place] [address] [place] [address] Sodium [Moles/Vol] 136 mmol/L Normal 135-145 [facility] Comment on above: Performed By: #### C MP3, HEMOG #### [place] [address] [place] [address] Albumin [Mass/Vol] 4.0 g/dL Normal 3.5-5.0 [facility] Comment on above: Performed By: #### C MP3, HEMOG #### [place] [address] [place] [address] Chloride [Moles/Vol] 106 mmol/L Normal 98-107 [facility] Comment on above: Performed By: #### C MP3, HEMOG #### [place] [address] [place] [address] Creatinine, Ur Randomon 09-2 Creatinine, Ur Random 97.6 mg/dL Normal No Range [facility] Comment on above: Performed By: #### T PUR, CRTUR #### [place] [address] [address] [place], [place] Hemogramon 01-27-2021 Erythrocyte distribution width (RBC) [Ratio] 13.4 % Normal 11.5-14.5 [facility] Comment on above: Performed By: #### C MP3, HEMOG #### [facility] [address], [place] Hematocrit (Bld) [Volume fraction] 35.6 % Normal 35.0-47.0 [facility] Comment on above: Performed By: #### C MP3, HEMOG #### [facility] [address], [place] Hemoglobin (Bld) [Mass/Vol] 11.9 g/dL Normal 11.7-16.0 [facility] Comment on above: Performed By: #### C MP3, HEMOG #### [place] [address] [address] [place], [place] MCH (RBC) [Entitic mass] 30.3 pg Normal 26.0-34.0 [facility] Comment on above: Performed By: #### C MP3, HEMOG #### [place] [address] [address] [place], [place] MCHC 33.5 % Normal 32.0-36.0 [facility] Comment on above: Performed By: #### C MP3, HEMOG #### [facility] [address], [place] MCV (RBC) [Entitic vol] 90.4 fL Normal 79.0-98.0 [facility] Comment on above: Performed By: #### C MP3, HEMOG #### [facility] [address] [place], [place] Platelet mean volume (Bld) [Entitic vol] 9.4 fL Normal 7.4-10.4 [facility] Comment on above: Performed By: #### C MP3, HEMOG #### [facility] [address], [place] Platelets (Bld) [#/Vol] 248 10*3/uL Normal 140-440 [facility] Comment on above: Performed By: #### C MP3, HEMOG #### [facility] [address], [place] RBC (Bld) [#/Vol] 3.93 10*6/uL Normal 3.80-5.20 [facility] Comment on above: Performed By: #### C MP3, HEMOG #### [facility] [address], [place] WBC (Bld) [#/Vol] 11.5 10*3/uL High 3.6-10.7 [facility] Comment on above: Performed By: #### C MP3, HEMOG #### [facility] [address], [place] MFM US Biophy w/o non- stresson 01-27-2021 MFM US Biophy w/o non-stress Patient Name: CLARISA DE LA CRUZ Maternal Medicine ACCESSION EXAM DATE/TIME PROCEDURE ORDERING PROVIDER [id number] 01/27/2021 08:57 EDT MFM US After DO DUNCAN ALESSANDRA 1st Trimester Reason For Exam (MFM US After 1st Trimester) HTN Report OBSTETRICS REPORT (Signed Final 01/27/2021 11:23 am) Patient Info ID #: [id number] : [birth year] (30 yrs) Name: CLARISA DE LA CRUZ Visit Date: 01/27/2021 09:00 am Performed By Attending: Lois Kerr Location: Inpatient- Hospital , PhD, FACOG Performed By: Mariann Logan [facility] Visit Type: Inpatient - Hospital Referred By: TIFFANIE DUNCAN Service(s) Provided US >= 14 weeks 68882 BPP w/out NST 51958 US Doppler umbilical art 54717 Indications Chronic hypertension, third trimester O10.913 Vital [...] Ultrasound ACCESSION EXAM DATE/TIME PROCEDURE ORDERING PROVIDER [id number] 01/27/2021 08:57 EDT [facility] US After DO DUNCAN ALESSANDRA 1st Trimester Reason For Exam ([facility] US After 1st Trimester) HTN Report OBSTETRICS REPORT (Signed Final 01/27/2021 11:23 am) Patient Info ID #: [id number] : [birth year] (30 yrs) Name: CLARISA DE LA CRUZ Visit Date: 01/27/2021 09:00 am Performed By Attending: Lois Kerr Location: Inpatient- Hospital , PhD, FACOG Performed By: Mariann Logan RDMS Visit Type: Inpatient - Hospital Referred By: TIFFANIE DUNCAN Service(s) Provided US >= 14 weeks 09332 BPP w/out NST 11515 US Doppler umbilical art 71303 Indications Chronic hypertension, third trimester O10.913 Vital Signs Weight (lb): 198 Height: 5' (more content not included)... [facility] MFM US After 1st T rimesteron 01-27-2021 MFM US After 1st Trimester Patient Name: CLARISA DE LA CRUZ Maternal Medicine ACCESSION EXAM DATE/TIME PROCEDURE ORDERING PROVIDER [id number] 01/27/2021 08:57 EDT MFM US After DO DUNCAN ALESSANDRA 1st Trimester Reason For Exam (MFM US After 1st Trimester) [place] Report OBSTETRICS REPORT (Signed Final 01/27/2021 11:23 am) Patient Info ID #: [id number] : [birth year] (30 yrs) Name: CLARISA DE LA CRUZ Visit Date: 01/27/2021 09:00 am Performed By Attending: Lois Kerr Location: Inpatient- Hospital , PhD, FACOG Performed By: Mariann Logan RDMS Visit Type: Inpatient - Hospital Referred By: TIFFANIE DUNCAN Service(s) Provided US >= 14 weeks 21449 BPP w/out NST 12058 US Doppler umbilical art 11558 Indications Chronic hypertension, third trimester O10.913 Vital [...] Ultrasound ACCESSION EXAM DATE/TIME PROCEDURE ORDERING PROVIDER [id number] 01/27/2021 08:57 EDT [facility] US After LAMARI, DO TIFFANIE 1st Trimester Reason For Exam ([facility] US After 1st Trimester) CHTN Report OBSTETRICS REPORT (Signed Final 01/27/2021 11:23 am) Patient Info ID #: [id number] : [birth year] (30 yrs) Name: CLARISA DE LA CRUZ Visit Date: 01/27/2021 09:00 am Performed By Attending: Lois Kerr Location: Inpatient- Hospital MD, PhD, FACOG Performed By: Mariann Logan RDMS Visit Type: Inpatient - Hospital Referred By: TIFFANIE DUNCAN Service(s) Provided US >= 14 weeks 68862 BPP w/out NST 10114 US Doppler umbilical art 70687 Indications Chronic hypertension, third trimester O10.913 Vital Signs Weight (lb): 198 Height: (more content not included)... Normal [facility] US Umbilical Artery Echo on 01-27-2021 [facility] US Umbilical Artery Echo Patient Name: CLARISA DE LA CRUZ Maternal Medicine ACCESSION EXAM DATE/TIME PROCEDURE ORDERING PROVIDER [id number] 01/27/2021 08:59 EDT MFM US After DO ONEAL HANNAH 1st Trimester Reason For Exam (MFM US After 1st Trimester) iugr Report OBSTETRICS REPORT (Signed Final 01/27/2021 11:23 am) Patient Info ID #: [id number] : [birth year] (30 yrs) Name: CLARISA DE LA CRUZ Visit Date: 01/27/2021 09:00 am Performed By Attending: Lois Kerr Location: Inpatient- Hospital , PhD, FACOG Performed By: Mariann Logan RDMS Visit Type: Inpatient - Hospital Referred By: TIFFANIE DUNCAN Service(s) Provided US >= 14 weeks 75658 BPP w/out NST 74473 US Doppler umbilical art 02590 Indications Chronic hypertension, third trimester O10.913 Vital [...] Ultrasound ACCESSION EXAM DATE/TIME PROCEDURE ORDERING PROVIDER [id number] 01/27/2021 08:59 EDT M US After DO ONEAL HANNAH 1st Trimester Reason For Exam (M US After 1st Trimester) iugr Report OBSTETRICS REPORT (Signed Final 01/27/2021 11:23 am) Patient Info ID #: [id number] : [birth year] (30 yrs) Name: CLARISA DE LA CRUZ Visit Date: 01/27/2021 09:00 am Performed By Attending: Lois Kerr Location: Inpatient- Hospital , PhD, FACOG Performed By: Mariann Logan [facility] Visit Type: Inpatient - Hospital Referred By: TIFFANIE DUNCAN Service(s) Provided US >= 14 weeks 03407 BPP w/out NST 65763 US Doppler umbilical art 09112 Indications Chronic hypertension, third trimester O10.913 Vital Signs Weight (lb): 198 Height: 5'8 (more content not included)... Normal [facility] MRA Head w/o Contraston 01-08 MRA Head w/o Contrast Patient Name: CLARISA DE LA CRUZ Magnetic Resonance Imaging ACCESSION EXAM DATE/TIME PROCEDURE ORDERING PROVIDER [id number] 01/27/2021 21:34 EDT MRA Head w/o Contrast [id number] ZulyALY SAWYER CPT code 69627 Reason For Exam (MRA Head w/o Contrast) [...] the basilar or internal carotid arteries, the [place] or its major branches is identified. Neither posterior communicating artery is visualized compatible with normal variation. The anterior communicating artery is not visualized. There is no evidence for aneurysm or arteriovenous malformation. The distal vertebral arteries are patent and symmetric. IMPRESSION: 1. Normal variant incomplete [place]. 2. No significant vascular abnormality. [...] were obtained in multiple projections using 2-D klbe-uf-jrunkl maximum intensity projection and 3-D PSMRA imaging techniques. The sagittal, straight, sigmoid and transverse sinuses are widely patent. There is no evidence for deep venous thrombosis. IMPRESSION: No significant vascular abnormality. Report Dictated on Final Dictated: 01/28/2021 7:06 am Dictating Physician: MD LOZOYA HARLAN Signed Date and Time: 01/28/2021 7:33 am Signed by: MD LOZOYA HARLAN Transcribed Date and Time: 01/28/2021 7:06 Normal [facility] MRA Neck w/o Contraston 01-08 MRA Neck w/o Contrast Patient Name: CLARISA DE LA CRUZ Magnetic Resonance Imaging ACCESSION EXAM DATE/TIME PROCEDURE ORDERING PROVIDER [id number] 01/27/2021 21:34 EDT MRA Neck w/o Contrast [id number] ZulyGINARUBYMERVAT SAWYER CPT code 97015 Reason For Exam (MRA Neck w/o Contrast) [...] the basilar or internal carotid arteries, the [place] or its major branches is identified. Neither posterior communicating artery is visualized compatible with normal variation. The anterior communicating artery is not visualized. There is no evidence for aneurysm or arteriovenous malformation. The distal vertebral arteries are patent and symmetric. IMPRESSION: 1. Normal variant incomplete [place]. 2. No significant vascular abnormality. [...] were obtained in multiple projections using 2-D fdnu-rx-nzapty maximum intensity projection and 3-D PSMRA imaging techniques. The sagittal, straight, sigmoid and transverse sinuses are widely patent. There is no evidence for deep venous thrombosis. IMPRESSION: No significant vascular abnormality. Report Dictated on Final Dictated: 01/28/2021 7:06 am Dictating Physician: MD LOZOYA HARLAN Signed Date and Time: 01/28/2021 7:33 am Signed by: MD LOZOYA HARLAN Transcribed Date and Time: 01/28/2021 7:06 Normal [facility] MRI Brain w/o Contraston MRI Brain w/o Contrast Patient Name: CLARISA DE LA CRUZ Magnetic Resonance Imaging ACCESSION EXAM DATE/TIME PROCEDURE ORDERING PROVIDER [id number] 01/27/2021 21:34 EDT MRI Brain w/o Contrast SAWYER HORTA CPT code 40765 Reason For Exam (MRI Brain w/o Contrast) [...] the basilar or internal carotid arteries, the [place] or its major branches is identified. Neither posterior communicating artery is visualized compatible with normal variation. The anterior communicating artery is not visualized. There is no evidence for aneurysm or arteriovenous malformation. The distal vertebral arteries are patent and symmetric. IMPRESSION: 1. Normal variant incomplete [place]. 2. No significant vascular abnormality. [...] were obtained in multiple projections using 2-D bnga-im-hzmnou maximum intensity projection and 3-D PSMRA imaging techniques. The sagittal, straight, sigmoid and transverse sinuses are widely patent. There is no evidence for deep venous thrombosis. IMPRESSION: No significant vascular abnormality. Report Dictated on Final Dictated: 01/28/2021 7:06 am Dictating Physician: MD LOZOYA HARLAN Signed Date and Time: 01/28/2021 7:33 am Signed by: MD LOZOYA HARLAN Transcribed Date and Time: 01/28/2021 7:06 Normal [facility] MRV Headon 01-27-2021 MRV Head [id number] ACCESSION EXAM DATE/TIME PROCEDURE ORDERING PROVIDER [id number] 01/27/2021 21:34 EDT MRV Head SAWYER HORTA CPT code 42963 Reason For Exam (MRV Head) Headache with [...] the basilar or internal carotid arteries, the [place] or its major branches is identified. Neither posterior communicating artery is visualized compatible with normal variation. The anterior communicating artery is not visualized. There is no evidence for aneurysm or arteriovenous malformation. The distal vertebral arteries are patent and symmetric. IMPRESSION: 1. Normal variant incomplete [place]. 2. No significant vascular abnormality. [...] were obtained in multiple projections using 2-D nlyn-vu-qrzrpv maximum intensity projection and 3-D PSMRA imaging techniques. The sagittal, straight, sigmoid and transverse sinuses are widely patent. There is no evidence for deep venous thrombosis. IMPRESSION: No significant vascular abnormality. Report Dictated on Final Dictated: 01/28/2021 7:06 am Dictating Physician: MD LOZOYA HARLAN Signed Date and Time: 01/28/2021 7:33 am Signed by: MD LOZOYA HARLAN Transcribed Date and Time: 01/28/2021 7:06 Normal [facility] Protein, Ur Randomon 021 Protein, Ur Random 7 mg/dL Normal No Range [facility] Comment on above: Performed By: #### T PUR, CRTUR #### [facility] [address] [place] [id number] TS GELon 01-27-2021 TS GEL ABO Group: O Rh, Gel: POS Antibody Screen Gel: NEG Normal [facility] Comment on above: Performed By: #### T SGL #### [facility] Progress Noteon 12-03-2020 [employer] Authentication Interface Message Text This is a [...] topics are listed above. Nila Cole MD [facility] Progress Noteon 11-26-2020 [employer] Authentication Interface Message Text MFM Transfer line I was called by Dr. Elton Wilkins in [place] about this patient who was last seen [...] in the patient's chart. Lorena Patton MD [facility] Vital Signs Date Time Vital Sign Value Performing Clinician Facility 01-08-2025 13:52-0400 Body mass index (BMI) [Ratio] 29.16 kg/m2 Geovanna Avilez APRN.CNM Work Phone: [facility] 01-08-2025 13:52-0400 Body weight 85.73 kg Geovanna Avilez APRN.CNM Work Phone: [facility] 01-08-2025 13:52-0400 Diastolic blood pressure 80 mm[Hg] Geovanna Avilez APRN.CNM Work Phone: [facility] 01-08-2025 13:52-0400 Systolic blood pressure 124 mm[Hg] Geovanna Avilez APRN.CNM Work Phone: [facility] 10-22-2024 13:30-0400 Body mass index (BMI) [Ratio] 28.55 kg/m2 Geovanna Avilez APRN.CNM Work Phone: [facility] 10-22-2024 13:30-0400 Body weight 83.92 kg Geovanna Avilez APRN.CNM Work Phone: [facility] 10-22-2024 13:30-0400 Diastolic blood pressure 72 mm[Hg] Geovanna Avilez APRN.CNM Work Phone: [facility] 10-22-2024 13:30-0400 Systolic blood pressure 118 mm[Hg] Geovanna Avilez APRN.CNM Work Phone: [facility] 09-30-2024 15:00-0400 Body height 171.5 cm Jeniffer Styles APRN.FORMING AND ASSEMBLING SUPERVISOR Work Phone: [facility] 09-30-2024 15:00-0400 Body mass index (BMI) [Ratio] 28.55 kg/m2 Jeniffer Styles APRN.FORMING AND ASSEMBLING SUPERVISOR Work Phone: [facility] 09-30-2024 15:00-0400 Body temperature 98.29 [degF] Jeniffer Styles APRN.FORMING AND ASSEMBLING SUPERVISOR Work Phone: [facility] 09-30-2024 15:00-0400 Body weight 83.92 kg Jeniffer Styles APRN.FORMING AND ASSEMBLING SUPERVISOR Work Phone: [facility] 09-30-2024 15:00-0400 Diastolic blood pressure 80 mm[Hg] Jeniffer Styles APRN.FORMING AND ASSEMBLING SUPERVISOR Work Phone: [facility] 09-30-2024 15:00-0400 Heart rate 96 /min Jeniffer Styles APRN.FORMING AND ASSEMBLING SUPERVISOR Work Phone: [facility] 09-30-2024 15:00-0400 SaO2% (BldA) [Mass fraction] 98 % Jeniffer Styles APRN.FORMING AND ASSEMBLING SUPERVISOR Work Phone: [facility] 09-30-2024 15:00-0400 Systolic blood pressure 140 mm[Hg] Jeniffer Styles APRN.FORMING AND ASSEMBLING SUPERVISOR Work Phone: [facility] 01-16-2024 10:34-0400 Body mass index (BMI) [Ratio] 27.78 kg/m2 Tabby Krueger MD Work Phone: [facility] 01-16-2024 10:34-0400 Body weight 81.65 kg Tabby Krueger MD Work Phone: [facility] 01-16-2024 10:34-0400 Diastolic blood pressure 74 mm[Hg] Tabby Krueger MD Work Phone: [facility] 01-16-2024 10:34-0400 Systolic blood pressure 124 mm[Hg] Tabby Krueger MD Work Phone: [facility] 01-02-2024 13:33-0400 Body mass index (BMI) [Ratio] 27.78 kg/m2 Jen Dale MD Work Phone: [facility] 01-02-2024 13:33-0400 Body weight 81.65 kg Jen Dale MD Work Phone: [facility] 01-02-2024 13:33-0400 Diastolic blood pressure 86 mm[Hg] Jen Dale MD Work Phone: [facility] 01-02-2024 13:33-0400 Systolic blood pressure 136 mm[Hg] Jen Dale MD Work Phone: [facility] 12-05-2023 15:17-0400 Body mass index (BMI) [Ratio] 29.32 kg/m2 Geovanna Avilez APRN.CNM Work Phone: [facility] 12-05-2023 15:17-0400 Body weight 86.18 kg Geovanna Avilez CONSULTING BUSINESS DEVELOPER.CNM Work Phone: [facility] 12-05-2023 15:17-0400 Diastolic blood pressure 86 mm[Hg] Geovanna Raghav CONSULTING BUSINESS DEVELOPER.CNM Work Phone: [facility] 12-05-2023 15:17-0400 Systolic blood pressure 138 mm[Hg] Geovanna Avilez APRN.CNM Work Phone: [facility] 11-28-2023 11:09-0400 Body mass index (BMI) [Ratio] 31.17 kg/m2 Geovanna Avilez CONSULTING BUSINESS DEVELOPER.CNM Work Phone: [facility] 11-28-2023 11:09-0400 Body weight 91.63 kg Geovanna Avilez CONSULTING BUSINESS DEVELOPER.CNM Work Phone: [facility] 11-28-2023 11:09-0400 Diastolic blood pressure 77 mm[Hg] Geovanna Avilez CONSULTING BUSINESS DEVELOPER.CNM Work Phone: [facility] 11-28-2023 11:09-0400 Systolic blood pressure 114 mm[Hg] Geovanna Avilez CONSULTING BUSINESS DEVELOPER.CNM Work Phone: [facility] 11-25-2023 09:22-0400 Body mass index (BMI) [Ratio] 31.48 kg/m2 Jen Dale MD Work Phone: [facility] 11-25-2023 09:22-0400 Body weight 92.53 kg Jen Dale MD Work Phone: [facility] 11-25-2023 09:22-0400 Diastolic blood pressure 72 mm[Hg] Jen Dale MD Work Phone: [facility] 11-25-2023 09:22-0400 Systolic blood pressure 128 mm[Hg] Jen Dale MD Work Phone: [facility] 11-21-2023 13:27-0400 Body mass index (BMI) [Ratio] 31.48 kg/m2 Delmy Brasher MD Work Phone: [facility] 11-21-2023 13:27-0400 Body weight 92.53 kg Delmy Brasher MD Work Phone: [facility] 11-21-2023 13:27-0400 Diastolic blood pressure 72 mm[Hg] Delmy Brasher MD Work Phone: [facility] 11-21-2023 13:27-0400 Systolic blood pressure 108 mm[Hg] Delmy Brasher MD Work Phone: [facility] 11-18-2023 09:37-0400 Body mass index (BMI) [Ratio] 31.02 kg/m2 Geovanna Avilez CONSULTING BUSINESS DEVELOPER.CNM Work Phone: [facility] 11-18-2023 09:37-0400 Body weight 91.17 kg Geovanna Avilez CONSULTING BUSINESS DEVELOPER.CNM Work Phone: [facility] 11-18-2023 09:37-0400 Diastolic blood pressure 80 mm[Hg] Geovanna Avilez CONSULTING BUSINESS DEVELOPER.CNM Work Phone: [facility] 11-18-2023 09:37-0400 Systolic blood pressure 126 mm[Hg] Geovanna Avilez CONSULTING BUSINESS DEVELOPER.CNM Work Phone: [facility] 11-15-2023 13:27-0400 Body mass index (BMI) [Ratio] 31.29 kg/m2 Maximilian Valdovinos MD Work Phone: [facility] 11-15-2023 13:27-0400 Body weight 91.99 kg Maximilian Valdovinos MD Work Phone: [facility] 11-15-2023 13:27-0400 Diastolic blood pressure 80 mm[Hg] Maximilian Valdovinos MD Work Phone: [facility] 11-15-2023 13:27-0400 Systolic blood pressure 126 mm[Hg] Maximilian Valdovinos MD Work Phone: [facility] 11-11-2023 13:19-0400 Body mass index (BMI) [Ratio] 31.33 kg/m2 Maximilian Valdovinos MD Work Phone: [facility] 11-11-2023 13:19-0400 Body weight 92.08 kg Maximilian Valdovinos MD Work Phone: [facility] 11-11-2023 13:19-0400 Diastolic blood pressure 64 mm[Hg] Maximilian Valdovinos MD Work Phone: [facility] 11-11-2023 13:19-0400 Systolic blood pressure 112 mm[Hg] Maximilian Valdovinos MD Work Phone: [facility] 11-07-2023 09:41-0400 Body mass index (BMI) [Ratio] 31.33 kg/m2 Jen Dale MD Work Phone: [facility] 11-07-2023 09:41-0400 Body weight 92.08 kg Jen Dale MD Work Phone: [facility] 11-07-2023 09:41-0400 Diastolic blood pressure 78 mm[Hg] Jen Dale MD Work Phone: [facility] 11-07-2023 09:41-0400 Systolic blood pressure 118 mm[Hg] Jen Dale MD Work Phone: [facility] 11-04-2023 10:12-0400 Body mass index (BMI) [Ratio] 30.86 kg/m2 Tabby Krueger MD Work Phone: [facility] 11-04-2023 10:12-0400 Body weight 90.72 kg Tabby Krueger MD Work Phone: [facility] 11-04-2023 10:12-0400 Diastolic blood pressure 83 mm[Hg] Tabby Krueger MD Work Phone: [facility] 11-04-2023 10:12-0400 Systolic blood pressure 125 mm[Hg] Tabby Krueger MD Work Phone: [facility] 11-01-2023 10:36-0400 Body mass index (BMI) [Ratio] 30.89 kg/m2 Maximilian Valdovinos MD Work Phone: [facility] 11-01-2023 10:36-0400 Body weight 90.81 kg Maximilian Valdovinos MD Work Phone: [facility] 11-01-2023 10:36-0400 Diastolic blood pressure 60 mm[Hg] Maximilian Valdovinos MD Work Phone: [facility] 11-01-2023 10:36-0400 Systolic blood pressure 100 mm[Hg] Maximilian Valdovinos MD Work Phone: [facility] 10-26-2023 09:47-0400 Body mass index (BMI) [Ratio] 30.71 kg/m2 Jen Dale MD Work Phone: [facility] 10-26-2023 09:47-0400 Body weight 90.27 kg Jen Dale MD Work Phone: [facility] 10-26-2023 09:47-0400 Diastolic blood pressure 82 mm[Hg] Jen Dale MD Work Phone: [facility] 10-26-2023 09:47-0400 Systolic blood pressure 134 mm[Hg] Jen Dale MD Work Phone: [facility] 10-25-2023 14:51-0400 Body mass index (BMI) [Ratio] 30.74 kg/m2 Seferino Medina MD Work Phone: [facility] 10-25-2023 14:51-0400 Body weight 90.36 kg Seferino Medina MD Work Phone: [facility] 10-25-2023 14:51-0400 Diastolic blood pressure 78 mm[Hg] Seferino Medina MD Work Phone: [facility] 10-25-2023 14:51-0400 Systolic blood pressure 138 mm[Hg] Seferino Medina MD Work Phone: [facility] 10-21-2023 08:31-0400 Body mass index (BMI) [Ratio] 30.49 kg/m2 Maximilian Valdovinos MD Work Phone: [facility] 10-21-2023 08:31-0400 Body weight 89.63 kg Maximilian Valdovinos MD Work Phone: [facility] 10-21-2023 08:31-0400 Diastolic blood pressure 69 mm[Hg] Maximilian Valdovinos MD Work Phone: [facility] 10-21-2023 08:31-0400 Systolic blood pressure 109 mm[Hg] Maximilian Valdovinos MD Work Phone: [facility] 10-18-2023 09:29-0400 Body mass index (BMI) [Ratio] 30.34 kg/m2 Maximilian Valdovinos MD Work Phone: [facility] 10-18-2023 09:29-0400 Body weight 89.18 kg Maximilian Valdovinos MD Work Phone: [facility] 10-18-2023 09:29-0400 Diastolic blood pressure 72 mm[Hg] Maximilian Valdovinos MD Work Phone: [facility] 10-18-2023 09:29-0400 Systolic blood pressure 118 mm[Hg] Maximilian Valdovinos MD Work Phone: [facility] 10-14-2023 10:33-0400 Diastolic blood pressure 82 mm[Hg] Jen Dale MD Work Phone: [facility] 10-14-2023 10:33-0400 Systolic blood pressure 126 mm[Hg] Jen Dale MD Work Phone: [facility] 10-11-2023 10:56-0400 Body mass index (BMI) [Ratio] 30.09 kg/m2 Jasmina Collazo MD Work Phone: [facility] 10-11-2023 10:56-0400 Body weight 88.45 kg Jasmina Collazo MD Work Phone: [facility] 10-11-2023 10:56-0400 Diastolic blood pressure 82 mm[Hg] Jasmina Collazo MD Work Phone: [facility] 10-11-2023 10:56-0400 Systolic blood pressure 124 mm[Hg] Jasmina Collazo MD Work Phone: [facility] 09-14-2023 16:19-0400 Body mass index (BMI) [Ratio] 29.01 kg/m2 Tabby Krueger MD Work Phone: [facility] 09-14-2023 16:19-0400 Body weight 85.28 kg Tabby Krueger MD Work Phone: [facility] 09-14-2023 16:19-0400 Diastolic blood pressure 74 mm[Hg] Tabby Krueger MD Work Phone: [facility] 09-14-2023 16:19-0400 Systolic blood pressure 122 mm[Hg] Tabby Krueger MD Work Phone: [facility] 09-14-2023 15:22-0400 Diastolic blood pressure 79 mm[Hg] [facility] 09-14-2023 15:22-0400 Heart rate 85 /min [facility] 09-14-2023 15:22-0400 Systolic blood pressure 130 mm[Hg] [facility] 09-14-2023 15:18-0400 SaO2% (BldA) [Mass fraction] 98 % [facility] 09-14-2023 15:12-0400 Body temperature 98.5 [degF] [facility] 09-14-2023 15:12-0400 Respiratory rate 15 /min [facility] 09-14-2023 15:01-0400 Body height 172.72 cm [facility] 09-14-2023 15:01-0400 Body mass index (BMI) [Ratio] 28.7 kg/m2 [facility] 09-14-2023 15:01-0400 Body weight 85.72 kg [facility] 09-07-2023 16:06-0400 Body mass index (BMI) [Ratio] 29.01 kg/m2 Jen Dale MD Work Phone: [facility] 09-07-2023 16:06-0400 Body weight 85.28 kg Jen Dale MD Work Phone: [facility] 09-07-2023 16:06-0400 Diastolic blood pressure 74 mm[Hg] Jen Dale MD Work Phone: [facility] 09-07-2023 16:06-0400 Systolic blood pressure 124 mm[Hg] Jen Dale MD Work Phone: [facility] 08-16-2023 07:57-0400 Body weight 84.01 kg Jasmina Collazo MD Work Phone: [facility] 08-16-2023 07:57-0400 Diastolic blood pressure 80 mm[Hg] Jasmina Collazo MD Work Phone: [facility] 08-16-2023 07:57-0400 Systolic blood pressure 134 mm[Hg] Jasmina Collazo MD Work Phone: [facility] 08-02-2023 10:51-0400 Body height 171.5 cm Sneha Mikula CONSULTING BUSINESS DEVELOPER.FORMING AND ASSEMBLING SUPERVISOR Work Phone: [facility] 08-02-2023 10:51-0400 Body weight 84.82 kg Sneha Mikula CONSULTING BUSINESS DEVELOPER.FORMING AND ASSEMBLING SUPERVISOR Work Phone: [facility] 08-02-2023 10:51-0400 Diastolic blood pressure 76 mm[Hg] Sneha Mikula CONSULTING BUSINESS DEVELOPER.FORMING AND ASSEMBLING SUPERVISOR Work Phone: [facility] 08-02-2023 10:51-0400 Heart rate 81 /min Sneha Mikula CONSULTING BUSINESS DEVELOPER.FORMING AND ASSEMBLING SUPERVISOR Work Phone: [facility] 08-02-2023 10:51-0400 Systolic blood pressure 109 mm[Hg] Sneha Mikula CONSULTING BUSINESS DEVELOPER.FORMING AND ASSEMBLING SUPERVISOR Work Phone: [facility] 07-25-2023 15:35-0400 Body weight 84.19 kg Geovanna Avilez CONSULTING BUSINESS DEVELOPER.CNM Work Phone: [facility] 07-25-2023 15:35-0400 Diastolic blood pressure 80 mm[Hg] Geovanna Avilez CONSULTING BUSINESS DEVELOPER.CNM Work Phone: [facility] 07-25-2023 15:35-0400 Systolic blood pressure 118 mm[Hg] Geovanna Avilez CONSULTING BUSINESS DEVELOPER.CNM Work Phone: [facility] 07-13-2023 15:36-0500 Body weight 83.92 kg Ivett Hatopher CONSULTING BUSINESS DEVELOPER.FORMING AND ASSEMBLING SUPERVISOR Work Phone: [facility] 07-13-2023 15:36-0500 Diastolic blood pressure 70 mm[Hg] Ivett Haury CONSULTING BUSINESS DEVELOPER.FORMING AND ASSEMBLING SUPERVISOR Work Phone: [facility] 07-13-2023 15:36-0500 Systolic blood pressure 114 mm[Hg] Ivett Palomo CONSULTING BUSINESS DEVELOPER.FORMING AND ASSEMBLING SUPERVISOR Work Phone: [facility] 07-01-2023 14:40-0500 Body height 171.5 cm Ivett Palomo CONSULTING BUSINESS DEVELOPER.FORMING AND ASSEMBLING SUPERVISOR Work Phone: [facility] 07-01-2023 14:40-0500 Body weight 82.64 kg Ivett Palomo CONSULTING BUSINESS DEVELOPER.FORMING AND ASSEMBLING SUPERVISOR Work Phone: [facility] 05-06-2023 13:53-0500 Body height 172.7 cm Jean Govea CONSULTING BUSINESS DEVELOPER-FORMING AND ASSEMBLING SUPERVISOR Work Phone: [facility] 05-06-2023 13:53-0500 Body mass index (BMI) [Ratio] 27.69 kg/m2 Jean Govea CONSULTING BUSINESS DEVELOPER-FORMING AND ASSEMBLING SUPERVISOR Work Phone: [facility] 05-06-2023 13:53-0500 Body weight 82.6 kg Jean Govea CONSULTING BUSINESS DEVELOPER-FORMING AND ASSEMBLING SUPERVISOR Work Phone: [facility] 05-06-2023 13:53-0500 Diastolic blood pressure 75 mm[Hg] Jean Govea CONSULTING BUSINESS DEVELOPER-FORMING AND ASSEMBLING SUPERVISOR Work Phone: [facility] 05-06-2023 13:53-0500 Systolic blood pressure 112 mm[Hg] Jean Govea CONSULTING BUSINESS DEVELOPER-FORMING AND ASSEMBLING SUPERVISOR Work Phone: [facility] 04-24-2023 08:11-0500 Body temperature 98.29 [degF] Julio Bunn MD Work Phone: [facility] 04-24-2023 08:11-0500 Diastolic blood pressure 74 mm[Hg] Julio Bunn MD Work Phone: [facility] 04-24-2023 08:11-0500 Heart rate 83 /min Julio Bunn MD Work Phone: [facility] 04-24-2023 08:11-0500 Respiratory rate 16 /min Julio Bunn MD Work Phone: [facility] 04-24-2023 08:11-0500 SaO2% (BldA) [Mass fraction] 97 % Julio uBnn MD Work Phone: [facility] 04-24-2023 08:11-0500 Systolic blood pressure 141 mm[Hg] Julio Bunn MD Work Phone: [phone] [address] 04-23-2023 22:56-0500 Body mass index (BMI) [Ratio] 27.67 kg/m2 Julio Bunn MD Work Phone: [phone] [place] [address] 04-23-2023 22:56-0500 Body weight 82.56 kg Julio Bnun MD Work Phone: [phone])149-242526 [place] [address] 04-23-2023 16:32-0500 Body height 172.7 cm Julio Bunn MD Work Phone: [facility] 06-05-2022 08:16-0500 Body temperature 97.59 [degF] Krislyn Aberegg PA Work Phone: [facility] 06-05-2022 08:16-0500 Body weight 80.29 kg Krislyn Aberegg PA Work Phone: [facility] 06-05-2022 08:16-0500 Diastolic blood pressure 80 mm[Hg] Krislyn Aberegg PA Work Phone: [facility] 06-05-2022 08:16-0500 Heart rate 74 /min Krislyn Aberegg PA Work Phone: [facility] 06-05-2022 08:16-0500 Respiratory rate 16 /min Krislyn Aberegg PA Work Phone: [facility] 06-05-2022 08:16-0500 SaO2% (BldA) [Mass fraction] 98 % Krislyn Aberegg PA Work Phone: [facility] 06-05-2022 08:16-0500 Systolic blood pressure 130 mm[Hg] David WHITE Work Phone: [facility] Encounters Encounter Date Encounter Type Care Provider Facility Start: 04-25-2025 ambulatory Tabby Krueger [facility] Start: 02-07-2025 End: 02-07-2025 ambulatory TABBY KRUEGER Facility:[facility] Start: 01-08-2025 End: 01-08-2025 Patient encounter procedure Geovanna Avilez APRN.CNM Work Phone: OB/Gynecology Comment on above: Abnormal uterine ble eding (AUB) (Primary Dx); Adenomyosis of uterus; Irregular menstruation Start: 01-08-2025 End: 01-08-2025 ambulatory GEOVANNA AVILEZ Facility:[facility] Start: 12-25-2024 End: 12-25-2024 Telephone encounter [...] Mob OB/Gynecology Start: 10-26-2024 End: 10-26-2024 ambulatory Network Control Technician [facility] [employer] Remote Work Phone: OB/Gynecology Start: 10-23-2024 End: 12-23-2024 Follow-up encounter Geovanna Avilez APRN.CNM Work Phone: OB/Gynecology Start: 10-22-2024 End: 10-22-2024 Patient encounter procedure Geovanna Avilez APRN.CNM Work Phone: OB/Gynecology Comment on above: Abnormal uterine ble eding (AUB) (Primary Dx); Dysmenorrhea Start: 10-22-2024 End: 10-22-2024 ambulatory GEOVANNA RAGHAV Facility:[facility] Start: 09-30-2024 End: 09-30-2024 Patient encounter procedure Jeniffer King TIRSO.FORMING AND ASSEMBLING SUPERVISOR Work Phone: [facility] Comment on above: Sinobronchitis (Prim lauro Dx) Start: 09-30-2024 End: 09-30-2024 ambulatory SELF Facility:[facility] Start: 06-27-2024 End: 06-28-2024 Emergency department patient visit Ottonieljohn Encarnacion Facility:[facility] Start: 04-09-2024 ambulatory JHON GONZALES [facility] Start: 02-16-2024 End: 02-16-2024 Orders Only Sneha Cardenas APRN.FORMING AND ASSEMBLING SUPERVISOR Work Phone: NEUROLOGY Comment on above: TIA (transient ische dafne attack) (Primary Dx) Start: 01-16-2024 End: 01-16-2024 Patient encounter procedure Tabby Krueger MD Work Phone: OB/Gynecology Comment on above: care and examination (Primary Dx); Encounter for screening for malignant neoplasm of cervix Start: 01-10-2024 End: 01-10-2024 ambulatory Silvestre Mina APRN.FORMING AND ASSEMBLING SUPERVISOR Work Phone: Neurology Headache [facility] Comment on above: Migraine with aura a nd without status migrainosus, not intractable Start: 01-10-2024 End: 01-10-2024 Telemedicine consultation with patient Silvestre Mina APRN.FORMING AND ASSEMBLING SUPERVISOR Work Phone: Neurology Headache [facility] Start: 01-02-2024 End: 01-02-2024 Patient encounter procedure [...] Start: 11-28-2023 End: 11-28-2023 Patient encounter procedure Network Control Technician [facility] Work Phone: OB/Gynecology Comment on above: [...] Molina Damon MD Work Phone: Neurology Headache [facility] Comment on above: Migraine with aura a [...] hypertension affecting Start: 09-14-2023 End: 09-14-2023 ambulatory [facility] Work Phone: Start: 09-14-2023 End: 09-14-2023 Patient encounter procedure [facility] Work Phone: Start: 09-14-2023 [...] above: Referral Information Start: 08-26-2023 ambulatory Sneha HARP.FORMING AND ASSEMBLING SUPERVISOR Work Phone: NEUROLOGY Comment on above: Imaging review Start: 08-26-2023 E-mail encounter fro m caregiver Sneha Cardenas APRN.FORMING AND ASSEMBLING SUPERVISOR Work Phone: [facility] Start: 08-18-2023 ambulatory Jen Dale MD Work Phone: OB/Gynecology Comment on above: Schedule Start: 08-16-2023 End: 08-16-2023 Patient encounter procedure Jne Dale MD Work Phone: OB/Gynecology Comment on [...] E-mail encounter fro m caregiver Sneha Cardenas APRN.FORMING AND ASSEMBLING SUPERVISOR Work Phone: [facility] Start: 08-09-2023 Follow-up encounter Sneha boswell APRN.FORMING AND ASSEMBLING SUPERVISOR Work Phone: Cerebrovascular Comment on above: Follow-up from last week's visit Start: 08-02-2023 End: 08-02-2023 ambulatory OTTONIEL ENCARNACION Facility:[facility] Start: 08-02-2023 End: 08-02-2023 Patient encounter procedure Sneha Cardenas APRN.FORMING AND ASSEMBLING SUPERVISOR Work Phone: Cerebrovascular Comment on above: Migraine [...] above: Appointment Start: 06-11-2023 End: 06-11-2023 ambulatory OTTONILE SHELBY Facility:[facility] Start: 05-23-2023 End: 05-24-2023 ambulatory SHASHANK BALLC~[id number] Facility:[facility] Start: 05-11-2023 End: 05-11-2023 ambulatory NONE NONE Facility:[facility] Start: 05-11-2023 End: 05-11-2023 ambulatory NONE NONE Facility:[facility] Start: 05-06-2023 ambulatory [facility] Facility:[facility] Start: 05-06-2023 End: 05-06-2023 Subsequent hospital visit by physician Jean MATT Work Phone: [facility] Start: 04-23-2023 End: 04-24-2023 ambulatory NEUROLOGY-STROKE ALERT CONSULT Facility:[facility] Start: 04-23-2023 End: 04-24-2023 Emergency department patient visit Julio Bunn MD Work Phone: [facility] Start: 04-23-2023 End: 04-23-2023 ambulatory Clint [phone] Richie [phone] Facility:[facility] Start: 03-17-2023 End: 03-18-2023 ambulatory OTTONIEL SHELBY Facility:[facility] Start: 06-05-2022 End: 06-05-2022 Patient encounter procedure David WHITE Work Phone: [facility] Comment on above: Acute otitis externa of right ear, unspecified type (Primary Dx); Bacterial sinusitis Start: 04-05-2022 End: 04-05-2022 ambulatory [facility] Work Phone: Start: 04-05-2022 End: 04-05-2022 Patient encounter procedure [facility]Laboratory, Specimen Start: 10-08-2021 Telephone encounter [place] morillo DO Work Phone: Hematology/Oncology Comment on above: Patient Question; Pa tient Update Start: 03-07-2021 End: 03-07-2021 Emergency department patient visit OTTONIEL CORMIER [facility] Procedures Date Procedure Procedure Detail Performing [...] after 1st trimest 05/09 gestation Ivett Palomo APRN.FORMING AND ASSEMBLING SUPERVISOR Work Phone: Start: 07-25-2023 URINE OB DIP B/O Ivett Palomo APRN.FORMING AND ASSEMBLING SUPERVISOR Work Phone: Start: 07-01-2023 URINE OB DIP B/O Ivett Palomo APRN.FORMING AND ASSEMBLING SUPERVISOR Work Phone: Start: 07-01-2023 End: 12-02-2023 H/O: section History of section Ivett Palomo APRN.FORMING AND ASSEMBLING SUPERVISOR Work Phone: Start: 07-01-2023 Adult depression screening assessment Sneha Cardenas CONSULTING BUSINESS DEVELOPER.FORMING AND ASSEMBLING SUPERVISOR Work Phone: Start: 05-06-2023 Echo tthrc r-t 2d w/wom-mode compl spec&colr d Jean Govea CONSULTING BUSINESS DEVELOPER-FORMING AND ASSEMBLING SUPERVISOR Work Phone: Start: 04-24-2023 Creatinine blood Julio Bunn MD Work Phone: Start: 04-24-2023 Mri brain brain stem w/o contrast material Lexie Mendoza MD Work Phone: Start: 04-23-2023 CBC AND ELECTRONIC DIFF Julio Bunn MD Work Phone: Start: 04-23-2023 Complete blood count with white cell differential, automated Julio Bunn MD Work Phone: Start: 04-23-2023 GOLD TOP TUBE Julio sveerino MD Work Phone: Start: 04-23-2023 Hemoglobin glycosyla solo a1c Danilo Lema Fasoro CONSULTING BUSINESS DEVELOPER-FORMING AND ASSEMBLING SUPERVISOR Work Phone: Start: 04-23-2023 Lipid panel Danilo Lema Fa soro CONSULTING BUSINESS DEVELOPER-FORMING AND ASSEMBLING SUPERVISOR Work Phone: Start: 04-23-2023 LT BLUE TOP TUBE Julio Bunn MD Work Phone: H/O: section History of section Jasmina Collazo MD Work Phone: H/O: section S/P sectio n Geovanna Avilez APRN.CNM Work Phone: H/O: section History of section Geovanna Avilez APRN.CNM Work Phone: Plan of Treatment Date Care Activity Detail Author Start: 10-10-2033 Urine microalbumin profile DTaP,Tdap,Td Vaccine (3 - Td or Tdap) [facility] Start: 12-19-2030 Tetanus vaccination TETANUS [facility] Start: 12-19-2030 Urine microalbumin profile DTaP,Tdap,Td Vaccine (2 - Td or Tdap) [facility] Start: 01-15-2029 Screening for malignant neoplasm of cervix Cervical Cancer Screening [facility] Start: 04-01-2025 End: 04-01-2025 Patient encounter procedure 04/01/2025 2:20 PM EST Office Visit OB/Gynecology [address] [place] [address] Tabby Krueger MD [address] [place] [address] (Fax) Annual / r/s from 11-20 OB/Gynecology Comment on above: Annual / r/s from 11-20 Start: 01-08-2025 End: 01-08-2025 Patient encounter procedure 01/08/2025 1:50 PM EDT Office Visit OB/Gynecology [address] [place] [address] Geovanna Avilez APRN.CNM [address] [place] [address] (Fax) EMB and discuss options - time per [facility] OB/Gynecology Comment on above: EMB and discuss options - time per [facility] Start: 01-07-2025 Influenza vaccination [facility] Start: 11-20-2024 End: 11-20-2024 Patient encounter procedure 11/20/2024 2:20 PM EDT Office Visit OB/Gynecology [address] [place] [address] Tabby Krueger MD [address] [place] [address] (Fax) Annual OB/Gynecology Comment on above: Annual Start: 11-05-2024 End: 11-05-2024 ambulatory 11/05/2024 11:30 AM EDT [facility] OB/Gynecology [address] [place] [address] Geovanna Avilez APRN.CNM [address] [place] [address] (Fax) Discuss U/S results-Ok per [facility] OB/Gynecology Comment on above: Discuss U/S results-Ok per [facility] Start: 10-26-2024 End: 10-26-2024 ambulatory 10/26/2024 11:00 AM EDT Procedure OB/Gynecology [address] [place] [address] Remote, Network Control Technician [facility] [employer] [facility] [address] [place] [address] Abnormal uterine bleeding (AUB) [N93.9]; Dysmenorrhea [N94.6] OB/Gynecology Comment on above: Abnormal uterine bleeding (AUB) [N93.9]; Dysmenorrhea [N94.6] Start: 10-22-2024 End: 01-21-2025 Thyrotropin [Units/volume] in Serum or Plasma [facility] Comment on above: Expected: 10/22/2024, Expires: Start: 10-22-2024 End: 01-21-2025 Thyroxine (T4) free [Mass/volume] in Serum or Plasma [facility] Comment on above: Expected: 10/22/2024, Expires: 5 Start: 10-22-2024 End: 10-22-2025 US Pelvis PELVIC US [facility] Anc Imaging Routine Abnormal uterine bleeding (AUB) Dysmenorrhea Expected: 10/22/2024, Expires: 10/22/2025 [facility] Work Phone: Comment on above: Expected: 10/22/2024, Expires: 6 Start: 10-03-2024 End: 10-03-2024 Patient encounter procedure 10/03/2024 9:30 AM EDT Office Visit OB/Gynecology [address] [place] [address] Geovanna Avilez APRN.CN [address] [place] [address] irregular bleeding OB/Gynecology Comment on above: irregular bleeding Start: 07-01-2024 Anxiety Screening Anxiety Screening [facility] Start: 07-01-2024 Depression Screening Depression Screening [facility] Start: 02-23-2024 End: 05-24-2024 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 [Identifier] in Blood or Tissue by Molecular genetics method Nominal PROTHROMBIN GENE PCR Lab Routine TIA (transient ischemic attack) Expected: 02/23/2024 (Approximate), Expires: 05/24/2024 [facility] Comment on above: Expected: 02/23/2024 (Approximate), Expi res: 05/24/2024 Start: 02-23-2024 End: 05-24-[address] Lab Routine TIA (transient ischemic attack) Expected: 02/23/2024 (Approximate), Expires: 05/24/2024 [facility] Work Phone: Comment on above: Expected: 02/23/2024 (Approximate), Expi res: 05/24/2024 Start: 01-16-2024 End: 01-16-2024 Patient encounter procedure 01/16/2024 10:40 AM EDT Office Visit OB/Gynecology [address] [place] [address] Tabby Krueger MD [address] [place], [place] [address] Post OB/Gynecology Comment on above: Post Start: 01-10-2024 End: 01-10-2024 ambulatory 01/10/2024 7:00 AM EDT [facility] Neurology Headache [facility] [address] [place] [address] Silvestre Mina, CONSULTING BUSINESS DEVELOPER.FORMING AND ASSEMBLING SUPERVISOR [address] [place] [address] Neurology Headache [facility] Start: 01-08-2024 Covid-19 Vaccine () Covid-19 Vaccine () [facility] Start: 01-08-2024 Covid-19 Vaccine () Covid-19 Vaccine () [facility] Start: 01-08-2024 Influenza vaccination [facility] Start: 01-02-2024 End: 01-02-2024 Patient encounter procedure 01/02/2024 1:40 PM EDT Office Visit OB/Gynecology [address] [place] [address] Jen Arredondo MD [address] [place] [address] Incision check OB/Gynecology Comment on above: Incision check Start: 12-20-2023 End: 12-20-2023 Patient encounter procedure OB/Gynecology Comment on above: NST NST/OB Start: 12-19-2023 End: 12-19-2023 Patient encounter procedure OB/Gynecology Comment on above: BPP/OB Start: 12-16-2023 End: 12-16-2023 Patient encounter procedure 12/16/2023 3:10 PM EDT Routine Office Visit OB/Gynecology [address] [place] [address] Delmy Brasher MD [address] [place] [address] NST only OB/Gynecology Comment on above: NST only Start: 12-16-2023 End: 12-16-2023 Patient encounter procedure OB/Gynecology Comment on above: NST only Start: 12-13-2023 End: 12-13-2023 Patient encounter procedure OB/Gynecology Comment on above: NST NST/OB Start: 12-12-2023 End: 12-12-2023 Patient encounter procedure OB/Gynecology Comment on above: BPP/OB Start: 12-09-2023 End: 03-09-2024 Bacteria identified in Urine by Culture [facility] Work Phone: Comment on above: Expected: 12/09/2023, Expires: Start: 12-09-2023 End: 03-09-2024 Urinalysis complete panel - Urine [facility] Comment on above: Expected: 12/09/2023, Expires: Start: 12-09-2023 End: 12-09-2023 Patient encounter procedure 12/09/2023 10:50 AM EDT Routine Office Visit OB/Gynecology [address] [place] [address] Jen Arredondo MD [address] [place] [address] OB - Pre Op C/S 12/21 @ [facility] OB/Gynecology Comment on above: OB - Pre Op C/S 12/21 @ [facility] Start: 12-09-2023 End: 12-09-2023 Patient encounter procedure 12/09/2023 9:30 AM EDT Routine Office Visit OB/Gynecology [address] [place] [address] NST only OB/Gynecology Comment on above: NST only Start: 12-08-2023 End: 12-08-2023 Patient encounter procedure 12/08/2023 1:40 PM EDT Routine Office Visit OB/Gynecology [address] [place] [address] Jen Arredondo MD [address] [place] [address] OB - Pre Op C/S 12/21 @ [facility] OB/Gynecology Comment on above: OB - Pre Op C/S 12/21 @ [facility] Start: 12-06-2023 End: 12-06-2023 Patient encounter procedure OB/Gynecology Comment on above: NST NST/OB Start: 12-05-2023 End: 12-05-2023 Patient encounter procedure 12/05/2023 11:40 AM EDT Routine Office Visit OB/Gynecology [address] [place] [address] Norris Song MD [address] [place] [address] BPP/OB OB/Gynecology Comment on above: BPP/OB Start: [...] End: 10-25-2023 ambulatory 10/25/2023 7:00 PM EDT [facility] Neurology Headache [facility] [address] [place] [address] [place] [address] [place] [address] The migraines I am having. Neurology Headache [facility] Comment on above: The migraines I am [...] ambulatory 10/11/2023 10:45 AM EDT Results Only [facility] [address] [place] [address] Lab [facility] Comment on above: Lab Start: 09-14-2023 Nonstress test [facility] Start: 09-14-2023 Obstetric monitoring [facility] Start: 09-14-2023 Vital signs measurements [facility] Start: 09-14-2023 [facility] Start: 09-14-2023 Patient discharge [facility] Start: 09-07-2023 End: 12-07-2023 CBC panel - Blood by Automated count COMPLETE BLOOD COUNT Lab Routine 23 weeks gestation of Encounter for supervision of high risk in second trimester, antepartum Chronic hypertension affecting POTS (postural orthostatic tachycardia syndrome) Expected: 09/07/2023, Expires: 12/07/2023 [facility] Work Phone: Comment on above: Expected: 09/07/2023, Expires: Start: 09-07-2023 End: 12-07-2023 GESTATIONAL GLUCOSE SCREEN, 1-HOUR, 50 GRAM, NON-FASTING GESTATIONAL GLUCOSE SCREEN, 1-HOUR, 50 GRAM, NON-FASTING Lab Routine 23 weeks gestation of Encounter for supervision of high risk in second trimester, antepartum Chronic hypertension affecting POTS (postural orthostatic tachycardia syndrome) Expected: 09/07/2023, Expires: 12/07/2023 [facility] Comment on above: Expected: 09/07/2023, Expires: Start: 09-07-2023 End: 12-07-2023 SYPHILIS TOTAL W/REFLEX SYPHILIS TOTAL W/REFLEX Lab Routine 23 weeks gestation of Encounter for supervision of high risk in second trimester, antepartum Chronic hypertension affecting POTS (postural orthostatic tachycardia syndrome) Expected: 09/07/2023, Expires: 12/07/2023 [facility] Comment on above: Expected: 09/07/2023, Expires: Start: 08-09-2023 End: 11-08-2023 B 2 GPI IGG & IGM B 2 GPI IGG & IGM Lab Routine TIA (transient ischemic attack) Expected: 08/09/2023, Expires: 11/08/2023 [facility] Work Phone: Comment on above: Expected: 08/09/2023, Expires: Start: 08-09-2023 End: 11-08-2023 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 [Identifier] in Blood or Tissue by Molecular genetics method Nominal PROTHROMBIN GENE PCR Lab Routine TIA (transient ischemic attack) Expected: 08/09/2023, Expires: 11/08/2023 [facility] Work Phone: Comment on above: Expected: 08/09/2023, Expires: Start: 08-09-2023 End: 11-08-[address] Lab Routine TIA (transient ischemic attack) Expected: 08/09/2023, Expires: 11/08/2023 [facility] Work Phone: Comment on above: Expected: 08/09/2023, Expires: 4 Start: 08-09-2023 End: 11-08-2023 YOLANDA-1 GENOTYPE 5G/4G YOLANDA-1 GENOTYPE 5G/4G Lab Routine TIA (transient ischemic attack) Expected: 08/09/2023, Expires: 11/08/2023 [facility] Work Phone: Comment on above: Expected: 08/09/2023, Expires: 4 Start: 07-01-2023 End: 07-01-2024 NUCHAL TRANSLUCENCY WHI NUCHAL TRANSLUCENCY [facility] Anc Imaging Routine Encounter for supervision of high risk in second trimester, antepartum Expected: 07/01/2023, Expires: 07/01/2024 [facility] Work Phone: Comment on above: Expected: 07/01/2023, Expires: 5 Start: 07-01-2023 End: 07-01-2024 OBSTETRIC ULTRASOUND WHI OBSTETRIC ULTRASOUND [facility] Anc Imaging Routine Encounter for supervision of high risk in second trimester, antepartum 13 weeks gestation of Expected: 07/01/2023, Expires: 07/01/2024 [facility] Work Phone: Comment on above: Expected: 07/01/2023, Expires: 5 Start: 06-06-2023 End: 06-06-2023 Patient encounter procedure 06/06/2023 9:00 AM EST Office Visit Neurology Outpatient [facility] [address] [place] [address] [address] [place] [address] Allen Marin Jr., MD [address] [place] [id number] [facility] Start: 05-25-2023 Hepatitis B vaccination HEP B VACCINE (3 of 3 - 19+ 3-dose series) [facility] Start: 05-25-2023 Hepatitis B Vaccine (3 of 3 - 19+ 3-dose series) Hepatitis B Vaccine (3 of 3 - 19+ 3-dose series) [facility] Start: 05-09-2023 Behavioral Health Screening Behavioral Health Screening [facility] Start: 05-09-2023 Depression Assessment Depression Assessment [facility] Start: 04-25-2023 End: 06-25-2023 Echocardiography ECHOCARDIOGRAM Echocardiography Routine TIA (transient ischemic attack) Expected: 04/25/2023, Expires: 06/25/2023 [facility] Comment on above: Expected: 04/25/2023, Expires: Start: 01-07-2023 COVID-19 VACCINE () COVID-19 VACCINE () [facility] Start: 01-07-2023 Covid-19 Vaccine () Covid-19 Vaccine () [facility] Start: 01-07-2023 Influenza vaccination INFLUENZA VACCINE (#1) [facility] Start: 05-09-2022 DEPRESSION ASSESSMENT DEPRESSION ASSESSMENT [facility] Start: 01-07-2022 Influenza vaccination [facility] Start: 06-23-2021 COVID-19 VACCINE (4 - Booster) COVID-19 VACCINE (4 - Booster) [facility] Start: 2021 HPV TESTING HPV TESTING [facility] Start: 2021 Screening for malignant neoplasm of cervix HPV Testing [facility] Start: 2018 HPV Vaccine (1 - 3-dose SCDM series) HPV Vaccine (1 - 3-dose SCDM series) [facility] Start: 02-12-2012 PAP TESTING PAP TESTING [facility] Start: 02-12-2012 Screening for malignant neoplasm of cervix [facility] Start: 2010 Urine microalbumin profile DTAP,TDAP,TD (1 - Tdap) [facility] Start: 2009 Annual PCP Team Chronic Disease Visit Annual PCP Team Chronic Disease Visit [facility] Start: 2009 Anxiety Screening Anxiety Screening [facility] Start: 2009 Depression Screening Depression Screening [facility] Start: 2009 HEPATITIS C SCREENING HEPATITIS C SCREENING [facility] Start: 2009 Hepatitis C screening Hepatitis C Screening [facility] Start: 2009 HIV SCREENING HIV SCREENING [facility] Start: 2009 HIV screening HIV Screening [facility] Start: 2006 HIV screening HIV SCREENING DISCUSSION [facility] Start: 2003 Adult depression screening assessment DEPRESSION SCREENING [facility] Start: 1991 HEPATITIS B (1 of 3 - 3-dose series) HEPATITIS B (1 of 3 - 3-dose series) [facility] Start: 1991 Hepatitis C screening HEPATITIS C VIRUS SCREENING [facility] Bacteria identified in Urine by Culture URINE CULTURE Microbiology Routine Dysuria 01/02/2024 2:11 PM EDT [facility] Work Phone: End: 04-08-2024 BIOPHYSICAL PROFILE [facility] BIOPHYSICAL PROFILE [facility] Anc Imaging Routine Chronic hypertension complicating or reason for care during childbirth History of intrauterine in previous Supervision of high risk in second trimester Once per week for 15 Occurrences starting 10/11/2023 until 04/08/2024 [facility] Comment on above: Once per week for 15 Occurrences startin g 10/11/2023 until 04/08/2024 Endometrial bx w/wo endocervix bx w/o dilat spx ENDOMETRIAL BIOPSY Procedures Routine Abnormal uterine bleeding (AUB) Ordered: 12/25/2024 [facility] Work Phone: Comment on above: Ordered: 12/25/2024 End: 04-24-2023 EXTRA LAVENDER TOP EXTRA LAVENDER TOP Lab Routine Once for 1 Occurrences starting 04/24/2023 until 04/24/2023 [facility] Comment on above: Once for 1 Occurrences starting 04/24/20 until 04/24/2023 EXTRA LAVENDER TOP EXTRA LAVENDE R TOP Lab Routine 04/24/2023 1:13 AM EST [facility] End: 04-24-2023 EXTRA TUBES EXTRA TUBES Lab Routine One Time for 1 Occurrences starting 04/24/2023 until 04/24/2023 [facility] Work Phone: Comment on above: One Time for 1 Occurrences starting 04/08 until 04/24/2023 EXTRA TUBES EXTRA TUBES Lab Routine 04/24/2023 1:13 AM EST [facility] End: 12-22-2023 nonstress test NON-STRESS TEST Procedures Routine Chronic hypertension complicating or reason for care during childbirth History of intrauterine in previous Supervision of high risk in second trimester Once per week for 15 Occurrences starting 10/11/2023 until 12/22/2023 [facility] Work Phone: Comment on above: Once per week for 15 Occurrences startin g 10/11/2023 until 12/22/2023 End: 04-23-2023 LAVENDER TOP TUBE [facility] Comment on above: Once for 1 Occurrences starting 04/23/20 until 04/23/2023 End: 04-23-2023 MINT GREEN TOP TUBE [facility] Comment on above: Once for 1 Occurrences starting 04/23/20 until 04/23/2023 End: 12-22-2023 OBSTETRIC ULTRASOUND WHI OBSTETRIC ULTRASOUND WHI Anc Imaging Routine 23 weeks gestation of Encounter for supervision of high risk in second trimester, antepartum Chronic hypertension affecting POTS (postural orthostatic tachycardia syndrome) Tachycardia Once per month for 8 Occurrences starting 09/07/2023 until 12/22/2023 [facility] Comment on above: Once per month for 8 Occurrences startin g 09/07/2023 until 12/22/2023 PAP TEST PAP TEST Lab Shanae leonardo care and examination Encounter for screening for malignant neoplasm of cervix 01/16/2024 11:23 AM EDT [facility] Work Phone: Patient Education [facility] ED False Labor OB Triage: Return to Hospital or Notify Physician if you Experience: [facility] Work Phone: Patient referral [place] Work Phone: End: 04-23-2023 RAINBOW DRAW [facility] Comment on above: One Time for 1 Occurrences starting 04/08 until 04/23/2023 End: 04-23-2023 Standard ECG [facility] Comment on above: One Time for 1 Occurrences starting 04/08 until 04/23/2023 Tissue Pathology bio psy report SURGICAL PATHOLOGY Lab Routine Abnormal uterine bleeding (AUB) Adenomyosis of uterus Irregular menstruation 01/08/2025 2:17 PM EDT [facility] Work Phone: URINE OB DIP B/O URINE OB DIP B/ O Lab Routine 15 weeks gestation of Encounter for supervision of high risk in second trimester, antepartum Ordered: 07/13/2023 [facility] Work Phone: Comment on above: Ordered: 07/13/2023 URINE OB DIP B/O URINE OB DIP B/ O Lab Routine 34 weeks gestation of High-risk in third trimester Chronic hypertension complicating or reason for care during childbirth History of intrauterine in previous Ordered: 11/25/2023 [facility] Work Phone: Comment on above: Ordered: 11/25/2023 [facility] Immunizations Immunization Date Immunization Notes Care Provider Carola [facility] 10-11-2023 tetanus toxoid, redu javan diphtheria toxoid, and acellular pertussis vaccine, adsorbed Jen Raegan Dale MD Work Phone: [facility] 01-20-2023 hepatitis B vaccine, adult dosage Tabby Krueger MD Work Phone: [facility] 11-22-2022 hepatitis B vaccine, adult dosage Tabby Krueger MD Work Phone: [facility] 04-28-2021 COVID-19 original vaccine, full dose, monovalent (MODERNA) Tabby Krueger MD Work Phone: [facility] 12-19-2020 tetanus toxoid, redu javan diphtheria toxoid, and acellular pertussis vaccine, adsorbed [facility] 06-13-2020 COVID-19 original vaccine, full dose, monovalent (MODERNA) Tabby Krueger MD Work Phone: [facility] 06-09-2020 Covid (Pfizer) [facility] Payers Date Payer Category Payer Self-pay [id number] 2023 Unknown [id number] 2016 Unknown [id number] 2012 Private Health Insurance [facility] [employer] [id number] 2012-Present [phone] [address] [address] [place] [address] O [id number] 2012 Private Health Insurance [id number] 1991 Unknown [id number]. 902 1991 Unknown [id number]. 419 1991 Unknown [id number]. 419 1991 Unknown [id number]. 419 1991 Unknown [id number] 2.16.840.1.026205.3.579.2. 419 1991 Unknown [id number] 2.16.840.1.071853.3.579.2. 419 1991 Unknown [id number] [id number]. 419 1991 Unknown [id number] 2.16.840.1.364084.3.579.2. 419 1991 Unknown [id number] 2.16.840.1.023202.3.579.2. 419 1991 Unknown [id number] 2.16.840.1.013199.3.579.2. 419 1991 Unknown [id number] 2.16.840.1.005107.3.579.2. 594 1991 Unknown [id number] 2.16.840.1.155775.3.579.2. 594 1991 Unknown [id number] [id number]. 651 1959 Unknown [id number] Unknown [id number] Unknown [facility] AMINA [address] [id number] [place] [address] [id number] Unknown [id number]. 462 Unknown [id number]. 462 Social History Date Type Detail Facility Start: 02-20-2019 End: 07-01-2023 Tobacco smoking status ALIS Never smoked tobacco [facility] Start: 02-20-2019 End: 07-01-2023 Tobacco use and exposure Smokeless tobacco non-user [facility] Start: 07-01-2021 End: 01-08-2025 Alcohol intake Lifetime non-drinker (finding) [facility] Start: 06-04-2021 History SDOH Alcohol Frequency 1 [facility] Start: 1990 Sex Assigned At Female C [facility] Start: 2021 End: 07-15-2022 Tobacco smoking status ALIS Unknown if ever smoked [facility] Start: 10-30-2018 None [facility] Start: 10-30-2018 Spouse/ Signif icant Other [facility] Start: 04-26-2019 Non-smoker [facility] Start: 02-23-2019 Alcohol intake Current non-dr home health caregiver of alcohol (finding) [facility] Start: 03-01-2020 End: 10-22-2024 History of Social function [facility] Start: 03-01-2020 End: 10-22-2024 Tobacco use panel [facility] Start: 1990 Sex Assigned At Not on file O [facility] Start: 06-12-2021 Gender identity Identifies as female gender (finding) [facility] Start: 09-23-2015 National Score (1-100), lower number is lower risk 76 [facility] Start: 07-01-2023 Education 17 [facility] Start: 04-10-2023 [facility] Start: 06-12-2021 Sexual orientation Heterosexual (verona thomas) [facility] NEGATED: Highlighted rowStart: NINF History of tobacco use Passive smoker [facility] Clinical Notes 01-28-2021 to 02-07-2025 Patient InstructionsGeovanna Avilez APRN.CNM - 01/08/2025 1:43 PM EDTTelephone Encounter - Batool Rogel RN - 12/25/2024 4:43 PM EDTPatient InstructionsPatient InstructionsPatient Instructions Note Date & Type Note Facility 02-07-2025 Note HNO ID: [id number] Author: TABBY KRUEGER MD Service: ? Author Type: Physician Type: Progress Notes Filed: 02/07/2025 13:05 Note Text: [facility]s [facility]ne[facility] [place] [facility] Visit Subjective Recording using Travolver software for draft documentation of the visit was discussed with the patient/authorized risk control representative; all questions welcomed and answered. 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 Likely round ligament pain. To notify if persistent or worsening. Lyme disease Mesenteric lymphadenitis POTS (postural orthostatic tachycardia syndrome) TIA (transient ischemic attack) 04/2023 Vaginal bleeding in , first trimester ([facility]) 07/01/2023 Per OB records, humza [...] Rubb* Hives, Rash (more content not included)... [facility] 01-08-2025 Instructions Saadia Calix MA - [...] in 3 to 5 business days via [employer], unless a different method of communication was discussed today with your provider. documented in this encounter [facility] 01-08-2025 Note HNO ID: [id number] Author: GEOVANNA AVILEZ APRN.MITZI Service: ? Author Type: Stone Polisher Machine Type: Progress Notes Filed: 01/08/2025 15:57 Note Text: Speeder Machine Operator offered: Patient declines. Clarisa is a 34 [...] and then discuss further. Geovanna Avilez APRN.CNM [facility] 01-08-2025 History of Presen t illness Narrative Speeder Machine Operator offered: Patient declines. Clarisa is a 34 [...] Geovanna Avilez APRN.CNM documented in this encounter [facility] 12-25-2024 Telephone encounter Note Patient notified and scheduled for 01/08 with KIERSTEN. Batool Rogel RN [facility] 12-25-2024 Miscellaneous Notes Patient notified and scheduled for 01/08 with JC. Batool Rogel RN 01/08 at 1:50? Can add it or just put it in a spot Geovanna Avilez APRN.CNM How soon should she get EMB? You have no available pail tester slots until 01/15 for 15 min slot [...] Batool Rogel RN documented in this encounter [facility] 12-25-2024 Telephone encounter Note 01/08 at 1:50? Can add it or just put it in a spot Geovanna Avilez APRN.CNM [facility] 12-25-2024 Telephone encounter Note How soon should she get EMB? You have no available pail tester slots until 01/15 for 15 min slot only. Batool Rogel RN [facility] 12-25-2024 Telephone encounter Note Can she schedule for an endometrial biopsy and can discuss further. Thank you, Geovanna Avilez APRN.CNM [facility] 12-25-2024 Telephone encounter Note Patient calling in [...] feeling fatigued. Please advise. Batool Rogel RN [facility] 11-05-2024 Instructions Geovanna Avilez APRN.CNM - 11/05/2024 [...] less iron deficiency anemia in pill users. snf use is associated with a decreased incidence [...] and mild fluid retention. There is no dedicated intermodal truck driver weight gain with the use of the [...] necessary health information. documented in this encounter [facility] 11-05-2024 Note HNO ID: [id number] Author: GEOVANNA AVILEZ APRN.CNM Service: ? Author Type: Stone Polisher Machine Type: Progress Notes Filed: 11/16/2024 07:33 Note Text: [facility]s [facility] [place] [facility] Visit Subjective Recording using ambient AI software for draft documentation of the visit was discussed with the patient/authorized risk control representative; all questions welcomed and answered. Patient/authorized risk control representative agreed to proceed DISTANCE HEALTH VISIT This Team Access Model visit is a virtual encounter. It required patient-provider interaction for the medical decision making as documented below. I have communicated my name and active licensure. The patient's identity and physical location were verified at the time of this visit. 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 Likely round ligament pain. To notify if persistent or worsening. Lyme disease Mesenteric lymphadenitis POTS (postural orthostatic tachycardia syndrome) TIA (transient ischemic attack) 04/2023 Vaginal bleeding in , first trimester ([facility]) 07/01/2023 Per OB records, humza [...] (+) dysmenorrhea Neurolo (more content not included)... [facility] 11-05-2024 History of Presen t illness Narrative Images from the original note were not included. [facility] [place] [facility] Visit Subjective Recording using Travolver software for draft documentation of the visit was discussed with the patient/authorized risk control representative; all questions welcomed and answered. Patient/authorized risk control representative agreed to proceed DISTANCE HEALTH VISIT This Team Access Model visit is a virtual encounter. It required patient-provider interaction for the medical decision making as documented below. I have communicated my name and active licensure. The patient's identity and physical location were verified at the time of this visit. 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 Clinical correlation. Latest Ref [facility] 10/22/2024 WBC 3.70 - 11.00 k/uL 7.71 [...] Abs Lymph 1.00 - 4.00 k/uL 1.81 [place]% % 8.0 Abs [place] <0.87 k/uL 0.62 Eosin% % 6.5 Abs [...] with more than 50% of the total [id number] time of the visit in counseling / coordination of care. documented in this encounter [facility] 10-31-2024 Telephone encounter Note Patient called and virtual visit scheduled. Ester Sandoval RN [facility] 10-31-2024 Miscellaneous Notes Patient called and virtual [...] Geovanna Avilez APRN.CNM documented in this encounter [facility] 10-31-2024 Telephone encounter Note Tuesday at 1130 or 330. Thanks, Geovanna Avilez APRN.CNM [facility] 10-31-2024 Telephone encounter Note Patient called to schedule. There are no available appointments with you next week either. When would you like her worked in? Thank you. [facility] 10-31-2024 Telephone encounter Note You have no openings next week. Where would you like patient to be seen? Ester Sandoval RN [facility] 10-31-2024 Telephone encounter Note Please assist in scheduling with me for next week for follow up. Thanks, Geovanna Avilez APRN.CNM [facility] 10-30-2024 Telephone encounter Note No openings with you tomorrow. Where would you like patient added? Delmy Caballero, RN [facility] 10-30-2024 Telephone encounter Note Please schedule patient with me for virtual visit tomorrow to discuss results and plan of care. Geovanna Avilez APRN.CNM [facility] 10-27-2024 Note HNO ID: [id number] Author: KAYLYNN LOOMIS MD Service: ? Author Type: Physician Type: Progress Notes Filed: 10/27/2024 11:52 Note Text: The patient presents for requested ultrasound. Full report available in the Imaging tab in [employer]. Kaylynn Loomis MD [facility] 10-27-2024 History of Presen t illness Narrative The patient presents for requested ultrasound. Full report available in the Imaging tab in [employer]. Kaylynn Loomis MD documented in this encounter [facility] 10-22-2024 Note HNO ID: [id number] Author: GEOVANNA AVILEZ APRN.CNM Service: ? Author Type: Stone Polisher Machine Type: Progress Notes Filed: 10/22/2024 14:23 Note Text: Obst[facility]s [facility]necology [place] [facility] Visit Subjective Recording using ambient [employer] software for draft documentation of the visit was discussed with the patient/authorized risk control representative; all questions welcomed and answered. 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 Likely round ligament pain. To notify if persistent or worsening. Lyme disease Mesenteric lymphadenitis POTS (postural orthostatic tachycardia syndrome) TIA (transient ischemic attack) 04/2023 Vaginal bleeding in , first trimester ([facility]) 07/01/2023 Per OB records, humza [...] discussed with the Patient or Patient's Authorized Manager [employer]. As applicable, any other physician, advance practice provider, medical student, or other health professional student that will be observing or involved in the sensitive examination for educational or training purposes was discussed with the Patient or Authorized Manager Aerospace. The Patient or Authorized Manager Aerospace has agreed to proceed with the sensitive [...] PELVIC: external ge (more content not included)... [facility] 10-22-2024 History of Presen t illness Narrative Images from the original note were not included. [facility] [place] [facility] Visit Subjective Recording using [employer] software for draft documentation of the visit was discussed with the patient/authorized risk control representative; all questions welcomed and answered. 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 Likely round ligament pain. To notify if persistent or worsening. Lyme disease Mesenteric lymphadenitis POTS (postural orthostatic tachycardia syndrome) TIA (transient ischemic attack) 04/2023 Vaginal bleeding in , first trimester (FORMERLY [facility]) 07/01/2023 Per OB records, humza [...] discussed with the Patient or Patient's Authorized Manager [employer]. As applicable, any other physician, advance practice provider, medical student, or other health professional student that will be observing or involved in the sensitive examination for educational or training purposes was discussed with the Patient or Authorized Manager [employer]. The Patient or Authorized Manager [employer] has agreed to proceed with the sensitive [...] external genitalia normal, normal Bartholin's glands, urethra, [place]'s glands, no vulvar lesions, no cervical lesions, good vaginal support, physiologic discharge present, normal appearing perineal body and perianal region - BIMANUAL: uterus normal size, shape and consistency, no adnexal masses, left-sided pelvic pain on palpation - Patient consent for exam received NEURO: alert and oriented x3 EXTREMITIES: normal SENSITIVE EXAMINATION CONSENT: The sensitive examination was discussed with the Patient or Patient's Authorized Manager [employer]. As applicable, any other physician, advance practice provider, medical student, or other health professional student that will be observing or involved in the sensitive examination for educational or training purposes was discussed with the Patient or Authorized Manager [employer]. The Patient or Authorized Manager [employer]ospace has agreed to proceed with the sensitive [...] Geovanna Avilez APRN.CNM documented in this encounter [facility] 09-30-2024 Note HNO ID: [id number] Author: JENIFFER STYLES APRN.CNP Service: ? Author [...] 07/01/2023 Hx of preeclampsia, prior , currently (FORM[facility]LY [facility]) 01/2021 Around 32weeks Left lower quadrant abdominal pain 07/01/2023 Reports random sharp pain to left side. Likely round ligament pain. To notify if persistent or worsening. Lyme disease Mesenteric lymphadenitis POTS (postural orthostatic tachycardia syndrome) TIA (transient ischemic attack) 04/2023 Vaginal bleeding in , first trimester (FORM[facility]LY [facility]) 07/01/2023 Per OB records, humza gestational hemorrhage: 2.4 cm on dating ultrasound. Reviewed likely the cause of her bleeding and that it likely resolved. Plans for NT scan and will confirm. No further bleeding. PAST SURGICAL HISTORY Procedure Laterality Date DELIVERY ONLY 2021 DELIVERY ONLY 11/30/2023 LTCS D AND C 07/17/2018 FOr retained [facility] PORT Insertion AND removal x [...] MG-POTASSIUM CLAVULANATE 125 MG TABLET Jeniffer Styles APRN.FORMING AND ASSEMBLING SUPERVISOR History and Record Review External record(s) reviewed: prior outpatient record. Disposition The patient was discharged. Procedures [facility] 09-30-2024 History of Presen t illness [...] 07/01/2023 Hx of preeclampsia, prior , currently ([facility]) 01/2021 Around 32weeks Left lower quadrant abdominal pain 07/01/2023 Reports random sharp pain to left side. Likely round ligament pain. To notify if persistent or worsening. Lyme disease Mesenteric lymphadenitis POTS (postural orthostatic tachycardia syndrome) TIA (transient ischemic attack) 04/2023 Vaginal bleeding in , first trimester (FORM[facility]) 07/01/2023 Per OB records, humza [...] was discharged. Procedures documented in this encounter [facility] 01-16-2024 History of Presen t illness Narrative Speeder Machine Operator offered: Patient declines. VISIT Clarisa De La Cruz is a 33 year old year old here for visit. Delivery Summary: C/S 11/30/2023 ROS/ Recovery: Feeding: Breast feeding problems: None Menses since delivery: none Menstrual pattern prior to : Regular periods [place] since delivery: Not resumed Depression: denies symptoms [...] external genitalia normal, normal Bartholin's glands, urethra, [place]'s glands, no vulvar lesions, no cervical lesions, [...] Tabby Krueger MD documented in this encounter [facility] 01-10-2024 Instructions Silvestre Mina APRN.[facility] - 01/10/2024 7:22 AM EDT AND -MIGRAINE MANAGEMENT Mary Hendrix MD [facility] August 2014 Along with the [...] avoid the use of typical prescribed and lrjl-spu-cjihynk as-needed medications previously used for headache. During [...] animals or fetuses. Memantine (brand name Namenda, [employer], [facility]) is one of the few preventives [...] shown some possibility of risk. A large Persian study found an increased frequency of behavioral [...] numbing the gums, represent another option for bmpuspjeg-rx-nycwo migraines in . Lidocaine has not been [...] its use acutely to treat migraine. The [employer] As noted before, association cleared sumatriptan [...] data HOWEVER Imitrex has been promoted by [employer] for due to its safety over the [...] virtually eliminate exposure to the drug. The asset protection detective recommends withholding for 12 hours after a dose. Withholding might be helpful in extreme cases, such as in the mother of a , but sumatriptan would not be expected to cause any adverse effects in most breastfed infants. documented in this encounter [facility] 01-10-2024 History of Presen t illness Narrative [...] visit. Either the patient or their legal risk control representative has been informed of the risks [...] these with the patient: yes Silvestre Mina APRN.FORMING AND ASSEMBLING SUPERVISOR HEADACHE SCORES: 10/20/2023 01/10/2024 Headache Questions ID [...] appetite, stress, exercising). Physical Examination: Vital Signs: [facility] 03/27/2023 General: well appearing, in no acute distress, alert Pain Behaviors: no pain behaviors observed Neurological: Mental Status: Alert and oriented to person, place and time. Affect is normal and appropriate. Speech is spontaneous and fluent without dysarthria, normal in rate, volume and articulation, and clear, coherent, and relevant. Short and residential memory, cognition and general fund of knowledge [...] Service: Virtual Visit 20 minutes Silvestre Mina APRN.FORMING AND ASSEMBLING SUPERVISOR Headache Section [facility] January 10, 2024 documented in this encounter [facility] 01-02-2024 History of Presen t illness Narrative [...] issues Sleep: no sleep concerns, feels rested [place] since delivery: Not resumed Emotional support: Yes [...] which included preparing to see the patient, qrfo-dv-qfau patient care, completing clinical documentation, obtaining and/or reviewing separately obtained history, performing a medically appropriate examination, counseling and educating the patient/family/caregiver, and ordering medications, tests, or procedures. Follow up: Return to Clinic for 6 week visit and as needed Jen Murphy MD documented in this encounter [facility] 12-09-2023 Telephone encounter Note Orders signed. It can be common for burning S/P meza catheter placement as well! Rosalinda Bob APRN.CNM [facility] Work Phone: 12-09-2023 Miscellaneous Notes Orders signed. It can be common for burning S/P meza catheter placement as well! Rosalinda Bob APRN.CNM Patient delivered via C/S on 11/29. UA and urine culture orders pending. Delmy Caballero RN documented in this encounter [facility] 12-09-2023 Telephone encounter Note Patient delivered via C/S on 11/29. UA and urine culture orders pending. Delmy Caballero RN [facility] 12-05-2023 History of Presen t illness Narrative [...] issues Sleep: no sleep concerns, feels rested [place] since delivery: Not resumed Emotional support: Yes [...] Geovanna Avilez APRN.CNM documented in this encounter [facility] 12-02-2023 Telephone encounter Note L&D aware of RR instructions and PP appt scheduled for Tuesday. Valerie Combs RN [facility] 12-02-2023 Miscellaneous Notes L&D aware of RR instructions and PP appt scheduled for Tuesday. Valerie Combs RN Patient requests d/c today. Needs f/u on Tuesday. Will monitor BP at home. rxs sent for d/c home. Tabby Krueger MD Please file Procardia and labetalol rx. Pharmacy updated to [facility] Retail pharmacy. Batool Rogel RN documented in this encounter [facility] 12-02-2023 Telephone encounter Note Patient requests d/c today. Needs f/u on Tuesday. Will monitor BP at home. rxs sent for d/c home. Tabby Krueger MD [facility] 12-02-2023 Telephone encounter Note Please file Procardia and labetalol rx. Pharmacy updated to [facility] Retail pharmacy. Batool Rogel RN [facility] 12-01-2023 History of Presen t illness Narrative Patient delivered via by Dr. Krueger on 11/30/23 at [facility]. See OB history. Batool Rogel RN documented in this encounter [facility] 11-30-2023 Telephone encounter Note Called patient and she was informed to go to L&D. Called Francine at [facility] and informed her that patient was coming. Copy of Episode faxed to L&D [facility] 11-30-2023 Miscellaneous Notes Called patient and she was informed to go to L&D. Called Francine at [facility] and informed her that patient was coming. Copy of Episode faxed to L&D To L&D for evaluation today please. Tabby Krueger MD I called patient. She is 35w3d She is having having headaches-rates a 5-6 on pain tkfdp-fgnmgxmzysax-bg worse thatn when seen 2 days ago. [...] schedule. Please advise documented in this encounter [facility] 11-30-2023 Telephone encounter Note To L&D for evaluation today please. Tabby Krueger MD [facility] 11-30-2023 Telephone encounter Note I called patient. She is 35w3d She is having having headaches-rates a 5-6 on pain elzwu-obbzbvyjnscc-iv worse thatn when seen 2 days ago. [...] NST - Dr Song's schedule. Please advise [facility] 11-28-2023 Note Indication Evaluation of well-being Chronic [...] RTO in 1 week Geovanna Avilez APRN.CNM [facility] 11-28-2023 Miscellaneous Notes KIERSTEN-S: Clarisa De La [...] Geovanna Avilez APRN.CNM documented in this encounter [facility] 11-28-2023 Instructions Haley Barrera MA - 11/28/2023 10:44 AM EDT SEQUENTIAL SCREENINGS The [facility] offers sequential screenings for women who are [...] It will require an appointment with our security systems technician. This is not an ultrasound performed [...] the above symptoms, contact our office at [phone] and ask to speak with a nurse. After hours, you can call doctors registry at [phone] OR call [facility] at [phone] and ask to have the doctor assembly instructions writer paged. If you consider this an emergency, dial 01-07-2 or go to your nearest emergency department. NEED HELP? Are you dealing with a violent or abusive relationship? Are you a victim of rape or sexual assult? Call [facility] ([place]) 24 hour Crisis Hotline: 654.432.8666 or 705-859-4133. MANUAL Your Guide to a Healthy manual is now on-line. Visit [email or web address] [email or web address] to download your free copy documented in this encounter [facility] 11-25-2023 Progress note Formatting of t his note might be different from the original. NST ONLY [facility] 11-25-2023 History of Presen t illness Narrative [...] Jen Murphy MD documented in this encounter [facility] 11-25-2023 Miscellaneous Notes NST ONLY documented in this encounter [facility] 11-25-2023 Instructions Anders AlvarezathTATUM lopez - 11/25/2023 9:22 AM EDT SEQUENTIAL SCREENINGS The [facility] offers sequential screenings for women who are [...] It will require an appointment with our security systems technician. This is not an ultrasound performed [...] the above symptoms, contact our office at [phone] and ask to speak with a nurse. After hours, you can call doctors registry at [phone] OR call [facility] at [phone] and ask to have the doctor assembly instructions writer paged. If you consider this an emergency, dial or go to your nearest emergency department. NEED HELP? Are you dealing with a violent or abusive relationship? Are you a victim of rape or sexual assult? Call [facility] ([place]) 24 hour Crisis Hotline: 277.219.7802 or 437-920-9399. MANUAL Your Guide to a Healthy manual is now on-line. Visit [email or web address] [email or web address] to download your free copy documented in this encounter [facility] 11-21-2023 Note Indication Evaluation of well-being Chronic [...] URINE OB DIP B/O Delmy Brasher MD [facility] 11-21-2023 Miscellaneous Notes S: Clarisa De La [...] Delmy Brasher MD documented in this encounter [facility] 11-21-2023 Instructions Soraida BolanosTATUM - 11/21/2023 1:15 PM EDT SEQUENTIAL SCREENINGS The [facility] offers sequential screenings for women who are [...] It will require an appointment with our security systems technician. This is not an ultrasound performed [...] the above symptoms, contact our office at [phone] and ask to speak with a nurse. After hours, you can call doctors registry at [phone] OR call [facility] at [phone] and ask to have the doctor assembly instructions writer paged. If you consider this an emergency, dial 9--1 or go to your nearest emergency department. NEED HELP? Are you dealing with a violent or abusive relationship? Are you a victim of rape or sexual assult? Call [facility] ([place]) 24 hour Crisis Hotline: 210.529.7869 or 618-548-7193. MANUAL Your Guide to a Healthy manual is now on-line. Visit [email or web address] [email or web address] to download your free copy documented in this encounter [facility] 11-18-2023 History of Presen t illness Narrative [...] Geovanna Avilez APRN.CNM documented in this encounter [facility] 11-18-2023 Instructions Oswald Blandon MA - 11/18/2023 9:37 AM EDT SEQUENTIAL SCREENINGS The [facility] offers sequential screenings for women who are [...] It will require an appointment with our security systems technician. This is not an ultrasound performed [...] the above symptoms, contact our office at [phone] and ask to speak with a nurse. After hours, you can call [facility] at [phone] OR call [facility] at [phone] and ask to have the doctor assembly instructions writer paged. If you consider this an emergency, dial 9-6-0 or go to your nearest emergency department. NEED HELP? Are you dealing with a violent or abusive relationship? Are you a victim of rape or sexual assult? Call [facility] ([place]) 24 hour Crisis Hotline: 896.988.5865 or 688-355-5072. MANUAL Your Guide to a Healthy manual is now on-line. Visit [email or web address] [email or web address] to download your free copy documented in this encounter [facility] 11-15-2023 Note Indication Evaluation of well-being Chronic [...] reviewed, Kick counts reviewed Maximilian Valdovinos MD [facility] 11-15-2023 Miscellaneous Notes KJ - VB No. [...] Maximilian Valdovinos MD documented in this encounter [facility] 11-15-2023 Instructions Soraida Bolanos MA - 11/15/2023 1:25 PM EDT SEQUENTIAL SCREENINGS The [facility] offers sequential screenings for women who are [...] It will require an appointment with our security systems technician. This is not an ultrasound performed [...] the above symptoms, contact our office at [phone] and ask to speak with a nurse. After hours, you can call doctors registry at [phone] OR call [facility] at [phone] and ask to have the doctor assembly instructions writer paged. If you consider this an emergency, dial 9-1-8 or go to your nearest emergency department. NEED HELP? Are you dealing with a violent or abusive relationship? Are you a victim of rape or sexual assult? Call [facility] ([place]) 24 hour Crisis Hotline: 355.147.4701 or 790-774-8292. MANUAL Your Guide to a Healthy manual is now on-line. Visit [email or web address] [email or web address] to download your free copy documented in this encounter [facility] 11-11-2023 History of Presen t illness Narrative [...] Maximilian Valdovinos MD documented in this encounter [facility] 11-11-2023 Progress note Formatting of t his [...] reviewed, Kick counts reviewed. Maximilian Valdovinos MD [facility] 11-11-2023 Miscellaneous Notes KJ - VB No. [...] Maximilian Valdovinos MD documented in this encounter [facility] 11-07-2023 Note Indication Evaluation of growth, Evaluation [...] 13 oz EFW by: Kt (HC-AC-FL) Extended Hotel Associate 5.8 mm Extremities / Bony Struc FL [...] Jen Murphy MD documented in this encounter [facility] 11-07-2023 Instructions Haley Barrera MA - 11/07/2023 8:20 AM EDT SEQUENTIAL SCREENINGS The [facility] offers sequential screenings for women who are [...] It will require an appointment with our security systems technician. This is not an ultrasound performed [...] the above symptoms, contact our office at [phone] and ask to speak with a nurse. After hours, you can call doctors registry at [phone] OR call [facility] at [phone] and ask to have the doctor assembly instructions writer paged. If you consider this an emergency, dial 4--6 or go to your nearest emergency department. NEED HELP? Are you dealing with a violent or abusive relationship? Are you a victim of rape or sexual assult? Call [facility] ([place]) 24 hour Crisis Hotline: 119.447.1312 or 766-981-8457. MANUAL Your Guide to a Healthy manual is now on-line. Visit [email or web address] [email or web address] to download your free copy documented in this encounter [facility] 11-04-2023 History of Presen t illness Narrative [...] Tabby Krueger MD documented in this encounter [facility] 11-04-2023 Progress note Formatting of t his [...] delivery before scheduled c/s Tabby Krueger M.D. [facility] 11-04-2023 Miscellaneous Notes RR- VB No. LOF [...] Tabby Krueger M.D. documented in this encounter [facility] 11-04-2023 Instructions Анна Alvarez MA - 11/04/2023 10:30 AM EDT SEQUENTIAL SCREENINGS The [facility] offers sequential screenings for women who are [...] It will require an appointment with our security systems technician. This is not an ultrasound performed [...] the above symptoms, contact our office at [phone] and ask to speak with a nurse. After hours, you can call doctors registry at [phone] OR call [facility] at [phone] and ask to have the doctor assembly instructions writer paged. If you consider this an emergency, dial 9-0 or go to your nearest emergency department. NEED HELP? Are you dealing with a violent or abusive relationship? Are you a victim of rape or sexual assult? Call [facility] ([place]) 24 hour Crisis Hotline: 441.532.3334 or 735-600-2702. MANUAL Your Guide to a Healthy manual is now on-line. Visit [email or web address] [email or web address] to download your free copy documented in this encounter [facility] 11-01-2023 Note Indication Evaluation of well-being TIA, [...] reviewed, Kick counts reviewed. Maximilian Valdovinos MD [facility] Work Phone: 11-01-2023 Miscellaneous Notes KJ - [...] Maximilian Valdovinos MD documented in this encounter [facility] 11-01-2023 Instructions Soraida Bolanos MA - 11/01/2023 10:04 AM EDT SEQUENTIAL SCREENINGS The [facility] offers sequential screenings for women who are [...] It will require an appointment with our security systems technician. This is not an ultrasound performed [...] the above symptoms, contact our office at [phone] and ask to speak with a nurse. After hours, you can call doctors registry at [phone] OR call [facility] at [phone] and ask to have the doctor assembly instructions writer paged. If you consider this an emergency, dial 9-1-5 or go to your nearest emergency department. NEED HELP? Are you dealing with a violent or abusive relationship? Are you a victim of rape or sexual assult? Call [facility] ([place]) 24 hour Crisis Hotline: 676.210.2239 or 899-994-0184. MANUAL Your Guide to a Healthy manual is now on-line. Visit [email or web address] [email or web address] to download your free copy documented in this encounter [facility] 10-31-2023 Telephone encounter Note Looks like she [...] ER. Otherwise keep scheduled visit for tomorrow [facility] Work Phone: 10-31-2023 Miscellaneous Notes Looks like [...] Ester Sandoval RN documented in this encounter [facility] 10-31-2023 Telephone encounter Note Denies any dizziness [...] and routine OB visit. Ester Sandoval RN [facility] 10-26-2023 History of Presen t illness Narrative [...] Jen Murphy MD documented in this encounter [facility] 10-26-2023 Progress note Formatting of t his note might be different from the original. Nst only [facility] 10-26-2023 Miscellaneous Notes Nst only documented in this encounter [facility] 10-26-2023 Haley Huston MA - 10/26/2023 9:38 AM EDT SEQUENTIAL SCREENINGS The [facility] offers sequential screenings for women who are [...] It will require an appointment with our security systems technician. This is not an ultrasound performed [...] the above symptoms, contact our office at [phone] and ask to speak with a nurse. After hours, you can call doctors registry at [phone] OR call [facility] at [phone] and ask to have the doctor assembly instructions writer paged. If you consider this an emergency, dial 9-6-1 or go to your nearest emergency department. NEED HELP? Are you dealing with a violent or abusive relationship? Are you a victim of rape or sexual assult? Call [facility] ([place]) 24 hour Crisis Hotline: 876.200.1527 or 902-507-5220. MANUAL Your Guide to a Healthy manual is now on-line. Visit [email or web address] [email or web address] to download your free copy SEQUENTIAL SCREENINGS The [facility] offers sequential screenings for women who are [...] It will require an appointment with our security systems technician. This is not an ultrasound performed [...] the above symptoms, contact our office at [phone] and ask to speak with a nurse. After hours, you can call doctors registry at [phone] OR call [facility] at [phone] and ask to have the doctor assembly instructions writer paged. If you consider this an emergency, dial 9-8 or go to your nearest emergency department. NEED HELP? Are you dealing with a violent or abusive relationship? Are you a victim of rape or sexual assult? Call [facility] ([place]) 24 hour Crisis Hotline: 953.424.1487 or 184-712-5649. MANUAL Your Guide to a Healthy manual is now on-line. Visit university [email or web address] to download your free copy documented in this encounter [facility] 10-25-2023 History of Presen t illness Narrative [...] 2023 3:17 PM documented in this encounter [facility] 10-25-2023 Note Indication Evaluation of well-being TIA, [...] - twice weekly testing Delmy Brasher MD [facility] 10-25-2023 Miscellaneous Notes S: Clarisa De La [...] Delmy Brasher MD documented in this encounter [facility] 10-25-2023 Instructions Soraida Bolanos MA - 10/25/2023 3:16 PM EDT SEQUENTIAL SCREENINGS The [facility] offers sequential screenings for women who are [...] It will require an appointment with our security systems technician. This is not an ultrasound performed [...] the above symptoms, contact our office at [phone] and ask to speak with a nurse. After hours, you can call doctors registry at [phone] OR call [facility] at [phone] and ask to have the doctor assembly instructions writer paged. If you consider this an emergency, dial 3-1-0 or go to your nearest emergency department. NEED HELP? Are you dealing with a violent or abusive relationship? Are you a victim of rape or sexual assult? Call [facility] ([place]) 24 hour Crisis Hotline: 875.935.3708 or 322-859-8260. MANUAL Your Guide to a Healthy manual is now on-line. Visit [email or web address] ancyGuide to download your free copy documented in this encounter [facility] 10-21-2023 History of Presen t illness Narrative [...] Maximilian Valdovinos MD documented in this encounter [facility] 10-21-2023 Instructions Soraida Bolanos MA - 10/21/2023 8:16 AM EDT SEQUENTIAL SCREENINGS The [facility] offers sequential screenings for women who are [...] It will require an appointment with our security systems technician. This is not an ultrasound performed [...] the above symptoms, contact our office at [phone] and ask to speak with a nurse. After hours, you can call doctors registry at [phone] OR call [facility] at [phone] and ask to have the doctor assembly instructions writer paged. If you consider this an emergency, dial 6--9 or go to your nearest emergency department. NEED HELP? Are you dealing with a violent or abusive relationship? Are you a victim of rape or sexual assult? Call [facility] ([place]) 24 hour Crisis Hotline: 520.104.4065 or 168-631-4523. MANUAL Your Guide to a Healthy manual is now on-line. Visit [email or web address] [email or web address] to download your free copy documented in this encounter [facility] 10-18-2023 Note Indication Evaluation of well-being TIA, [...] reviewed, Kick counts reviewed. Maximilian Valdovinos MD [facility] 10-18-2023 Miscellaneous Notes KJ - VB No. [...] Maximilian Valdovinos MD documented in this encounter [facility] 10-18-2023 Instructions Saadia Calix MA - 10/18/2023 8:57 AM EDT SEQUENTIAL SCREENINGS The [facility] offers sequential screenings for women who are [...] It will require an appointment with our security systems technician. This is not an ultrasound performed [...] the above symptoms, contact our office at [phone] and ask to speak with a nurse. After hours, you can call doctors registry at [phone] OR call [facility] at [phone] and ask to have the doctor assembly instructions writer paged. If you consider this an emergency, dial 9-1-4 or go to your nearest emergency department. NEED HELP? Are you dealing with a violent or abusive relationship? Are you a victim of rape or sexual assult? Call [facility] ([facility] 24 hour Crisis Hotline: 853.348.1138 or 955-487-8906. MANUAL Your Guide to a Healthy manual is now on-line. Visit [email or web address] [email or web address] to download your free copy documented in this encounter [facility] 10-14-2023 Progress note Formatting of t his note might be different from the original. Nst only [facility] 10-14-2023 Miscellaneous Notes Nst only documented in this encounter [facility] 10-14-2023 History of Presen t illness Narrative [...] Jen Murphy MD documented in this encounter [facility] 10-14-2023 Instructions Haley Barrera MA - 10/14/2023 10:31 AM EDT SEQUENTIAL SCREENINGS The [facility] offers sequential screenings for women who are [...] It will require an appointment with our security systems technician. This is not an ultrasound performed [...] the above symptoms, contact our office at [phone] and ask to speak with a nurse. After hours, you can call doctors registry at [phone] OR call [facility] at [phone] and ask to have the doctor assembly instructions writer paged. If you consider this an emergency, dial 9--9 or go to your nearest emergency department. NEED HELP? Are you dealing with a violent or abusive relationship? Are you a victim of rape or sexual assult? Call [facility] ([place]) 24 hour Crisis Hotline: 692.647.2554 or 758-454-2251. MANUAL Your Guide to a Healthy manual is now on-line. Visit [email or web address] ancyGuide to download your free copy documented in this encounter [facility] 10-11-2023 Progress note Formatting of t his [...] labs today. BPP 12/14 Jen Murphy MD [facility] 10-11-2023 Miscellaneous Notes DM- Pt doing well [...] Jen Murphy MD documented in this encounter [facility] 10-11-2023 History of Presen t illness Narrative [...] due to IUFD history -Monthly growth ultrasounds -[facility] follow up with 34-36 week visit Medical Decision Making: Problems: Moderate: 1+ chronic illnesses with change Risk: Moderate: Moderate risk from testing/treatment and Drug management Medical Decision Making Level: 4 - Moderate Jasmina Collazo MD October 11, 2023 1:25 PM documented in this encounter [facility] 10-11-2023 Note Indication Evaluation of growth, Evaluation [...] serial growth ultrasounds as planned at previous [facility] consult Maternal Assessment Height 173 cm Height [...] 15 oz EFW by: Hadlock (HC-AC-FL) Extended Hotel Associate 5.7 mm Extremities / Bony Struc FL [...] severely ill: Yes Patient denies history of Guillain-Tower Syndrome (a severe paralytic illness): Yes Tdap Adacel injection was given without incident. See immunizations for details of immunizations administered today. VIS sheet provided: Yes Provider Chito was present in office at time of injection. Haley Barrera MA documented in this encounter [facility] 10-07-2023 Telephone encounter Note Patient 27w5d calling with concerns of increased BP's at home. Patient states her BP has been running 140-150/93-95. Patient states she has had a headache with dizziness and blurred vision since yesterday at 7 pm and Tylenol is not helping. Patient had Greene marcano contractions yesterday but nothing today. Denies any bleeding, leaking or decreased movement. Patient currently taking Labetalol 200 mg BID. Discuss with provider assembly instructions writer, Dr. Brasher and she would like patient to go to L&D for monitoring. Patient notified to proceed to L&D and L&D notified and updated. Ester Sandoval RN [facility] 10-07-2023 Miscellaneous Notes Patient 27w5d calling with concerns of increased BP's at home. Patient states her BP has been running 140-150/93-95. Patient states she has had a headache with dizziness and blurred vision since yesterday at 7 pm and Tylenol is not helping. Patient had Greene marcano contractions yesterday but nothing today. Denies any bleeding, leaking or decreased movement. Patient currently taking Labetalol 200 mg BID. Discuss with provider assembly instructions writer, Dr. Brasher and she would like patient to go to L&D for monitoring. Patient notified to proceed to L&D and L&D notified and updated. Ester Sandoval RN documented in this encounter [facility] 09-14-2023 Progress note Formatting of t his [...] presence of amniotic fluid. Lab Address: Ob/gynecology [address] [place] [address] Dept: [phone] Provider: Tabby Krueger MD A/P 24w3d Estimated Date of Delivery: 01/01/24 c/o vaginal discharge, eval on L&D, neg test for SROM. Neg fern here. No vaginitis symptoms or evidence of PTL. Reassured keep next appt or f/u prn chornic HTN- bp stable today . Tabby Krueger M.D. [facility] 09-14-2023 Miscellaneous Notes RR- VB No. LOF [...] presence of amniotic fluid. Lab Address: Ob/gynecology [address] [place] [address] Dept: [phone] Provider: Tabby Krueger MD A/P 24w3d Estimated Date of Delivery: 01/01/24 c/o vaginal discharge, eval on L&D, neg test for SROM. Neg fern here. No vaginitis symptoms or evidence of PTL. Reassured keep next appt or f/u prn chornic HTN- bp stable today . Tabby Krueger M.D. documented in this encounter [facility] 09-14-2023 Telephone encounter Note 24w3d Patient called because she is leaking a lot of fluid. She has LLQ pain and NANCE. Advised to go to L&D for evaluation after speaking with DM. L&D notified. Updated H&P faxed. Delmy Caballero, JUAN [facility] 09-14-2023 Miscellaneous Notes 24w3d Patient called because she is leaking a lot of fluid. She has LLQ pain and NANCE. Advised to go to L&D for evaluation after speaking with DM. L&D notified. Updated H&P faxed. Delmy Caballero RN documented in this encounter [facility] 09-08-2023 Telephone encounter Note Luther unable to get appointment until November. Faxed referral and information to [facility]. Will leave open for their reply. Advised patient to call us once she hears from them. Batool Rogel RN [facility] 09-08-2023 Miscellaneous Notes Luther unable to get appointment until November. Faxed referral and information to [facility]. Will leave open for their reply. Advised patient to call us once she hears from them. Batool Rogel RN Called patient to see if she wants [facility] or [facility]. Prefers to stay with [facility]. Transferred to [facility] to schedule. Asked that she call or send us a [employer] message with her appointment date with cardiology to be sure it's soon enough. Delmy Caballero RN We have nothing soon (Apr) with Dr. Lehman or Dr. Aguillon. If they need to be seen soon, they will need to go to [facility] or if they need to stay in [facility]. Tere Robertson MA Patient seen in office today - reports over last week HR has been spiking to 150-200 intermittently lasting for 15min. BP is controlled during this time. Pt denies CP and occasional SOB during those episodes. Pt does have h/o POTS and previous well blower was at [facility] has now left and she needs a new Floor Runner. Can we see about getting her in with [facility] or [facility] please. Consult order placed. documented in this encounter [facility] 09-08-2023 Telephone encounter Note Called patient to see if she wants [facility] or [facility]. Prefers to stay with [facility]. Transferred to [facility] to schedule. Asked that she call or send us a [employer] message with her appointment date with cardiology to be sure it's soon enough. Delmy Caballero RN [facility] 09-07-2023 Telephone encounter Note We have nothing soon (Apr) with Dr. Lehman or Dr. Aguillon. If they need to be seen soon, they will need to go to [facility] or if they need to stay in [facility]. Tere Robertson MA [facility] 09-07-2023 Progress note Formatting of t his note might be different from the original. DM- Pt doing well today. Denies Vaginal Bleeding, Leaking fluid, or contractions. Pt reports good movement. Pt reports elevated HR intermittently over last week or so- 150s-200s but BP well controlled. [facility] well blower left- needs new well blower for POTS. Discussed fluids, rest, and when to go to ER. Cardiology consult placed. RTO 4 weeks, growth us 4 weeks. Continue labetalol 200mg BID, ASA. CS 12/22/23 scheduled. Jen Murphy MD [facility] 09-07-2023 Miscellaneous Notes DM- Pt doing well today. Denies Vaginal Bleeding, Leaking fluid, or contractions. Pt reports good movement. Pt reports elevated HR intermittently over last week or so- 150s-200s but BP well controlled. [facility] well blower left- needs new well blower for POTS. Discussed fluids, rest, and when to go to ER. Cardiology consult placed. RTO 4 weeks, growth us 4 weeks. Continue labetalol 200mg BID, ASA. CS 12/22/23 scheduled. Jen Murphy MD documented in this encounter [facility] 09-07-2023 Telephone encounter Note Patient seen in office today - reports over last week HR has been spiking to 150-200 intermittently lasting for 15min. BP is controlled during this time. Pt denies CP and occasional SOB during those episodes. Pt does have h/o POTS and previous well blower was at [facility] has now left and she needs a new Floor Runner. Can we see about getting her in with [facility] or [facility] please. Consult order placed. [facility] Work Phone: 09-07-2023 Instructions Haley Barrera MA - 09/07/2023 4:03 PM EDT SEQUENTIAL SCREENINGS The [facility] offers sequential screenings for women who are [...] It will require an appointment with our security systems technician. This is not an ultrasound performed [...] the above symptoms, contact our office at [phone] and ask to speak with a nurse. After hours, you can call doctors registry at [phone] OR call [facility] at [phone] and ask to have the doctor assembly instructions writer paged. If you consider this an emergency, dial 01-07-8 or go to your nearest emergency department. NEED HELP? Are you dealing with a violent or abusive relationship? Are you a victim of rape or sexual assult? Call [facility] ([place]) 24 hour Crisis Hotline: 141.823.4894 or 925-010-1919. MANUAL Your Guide to a Healthy manual is now on-line. Visit [email or web address] [email or web address] to download your free copy documented in this encounter [facility] 08-19-2023 Miscellaneous Notes Surgery sheet to DM to complete. Delmy Caballero RN Please block my 8:10 and 8:20 that day in office. If the 7:30 slot is open I will do it if not SW will have to do it at noon. Please place OR booking sheet in my office. Surgery schedule is open that day. documented in this encounter [facility] 08-16-2023 Miscellaneous Notes DM- Pt doing well [...] Jen Murphy MD documented in this encounter [facility] 08-16-2023 Instructions Haley Barrera MA - 08/16/2023 9:11 AM EDT SEQUENTIAL SCREENINGS The [facility] offers sequential screenings for women who are [...] It will require an appointment with our security systems technician. This is not an ultrasound performed [...] the above symptoms, contact our office at [phone] and ask to speak with a nurse. After hours, you can call [facility] at [phone] OR call [facility] at [phone] and ask to have the doctor assembly instructions writer paged. If you consider this an emergency, dial 9-1-5 or go to your nearest emergency department. NEED HELP? Are you dealing with a violent or abusive relationship? Are you a victim of rape or sexual assult? Call [facility] ([place]) 24 hour Crisis Hotline: 647.498.7646 or 711-659-0479. MANUAL Your Guide to a Healthy manual is now on-line. Visit [email or web address] ancyGuide to download your free copy documented in this encounter [facility] 08-16-2023 History of Presen t illness Narrative Images from the original note were not included. Wet End Supervisor [place] OUTPATIENT VISIT DATE August 16, 2023 OUTPATIENT VISIT TYPE CONSULT REFERRING PROVIDER: Ivtet Palomo APRN.FORMING AND ASSEMBLING SUPERVISOR Recommendations from today's consultation will be conveyed through the electronic medical record. History of Present Illness: 33 year old at 20w2d with Estimated Date of Delivery: 01/01/24 presenting for consultation with Maternal- Medicine at the [facility] in the setting of history of previous intrauterine demise at 27 weeks, chronic hypertension on medication, history pre-eclampsia. She also has history of POTS, and complex migraines with recent concern for transient ischemic event (following with cerebrovascular clinic at [facility]). Clarisa is doing fairly well today, [...] migraine variant. She saw cerebrovascular clinic at [facility] with plan for low-dose aspirin, goal [...] on IV fluids Recommend follow up with well blower. 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 Jasmina Colalzo MD August 16, 2023 8:24 AM documented in this encounter [facility] 08-09-2023 Instructions Sneha Cardenas APRN.[facility] - 08/09/2023 4:43 PM EDT Images [...] taken early enough. documented in this encounter [facility] 08-02-2023 Note HNO ID: [id number] Author: SNEHA CARDENAS APRN.WILDER Service: ? Author Type: Nurse Practitioner Type: Progress Notes Filed: 08/15/2023 23:30 Note Text: CEREBROVASCULAR CENTER Initial Visit [facility] [address] PCP: Ottoniel Encarnacion, WILDER [address] [place] [address] CEREBROVASCULAR HISTORY Clarisa De La Cruz is [...] On 04/23/2024 she sought evaluation at local [facility] where blood pressure was noted to be elevated 153/99. She received headache cocktail with headache resolution afterwards. She has a history of hypertension following prior with preeclampsia for which she takes labetalol 50 mg daily at the time. She underwent CT/CTA imaging without any acute findings. She was transferred to [facility] for further evaluation. MRI brain imaging [...] retained [facility] Insertion AND removal x 2 FAMILY HISTORY Problem Relation Age of Onset No Known Problems Mother Hypertension Father other (Sloping Brain Syndrome) Father Hypertension Sister No Known Problems Sister Heart Attack Maternal Grandmother Stroke Maternal Grandmother 63 No Known Problems Maternal Grandfather Social His (more content not included)... [facility] 08-02-2023 History of Presen t illness Narrative CEREBROVASCULAR CENTER Initial Visit [facility] [address] PCP: Ottoniel Encarnacion, FORMING AND ASSEMBLING SUPERVISOR [facility] [place] [address] CEREBROVASCULAR HISTORY Clarisa De La Cruz is [...] On 04/23/2024 she sought evaluation at local [facility] where blood pressure was noted to be elevated 153/99. She received headache cocktail with headache resolution afterwards. She has a history of hypertension following prior with preeclampsia for which she takes labetalol 50 mg daily at the time. She underwent CT/CTA imaging without any acute findings. She was transferred to [facility] for further evaluation. MRI brain imaging [...] which included preparing to see the patient, [id number] patient care, completing clinical documentation, obtaining and/or [...] access venous sinuses (prior CTA performed at [facility]). Imaging requested. Sneha Cardenas APRN.CNP 08/09/2023 documented in this encounter [facility] 07-29-2023 Telephone encounter Note Images from the original note were not included. OSH imaging/records received from [employer]: July 29, 2023 -Medical Hx & Imaging Reports available in Care Everywhere. OSH imaging/records received from [email or web address]: July 29, 2023 -Medical Hx & Imaging Reports available in Care Everywhere. Successfully faxed RICKEY via [employer] From: Sosa dias Last change on 07/29/2023 03:08:53 pm Sent on 07/29/2023 03:08:40 pm Completed [facility] 07-29-2023 Miscellaneous Notes Images from the original note were not included. OSH imaging/records received from [employer]: July 29, 2023 -Medical Hx & Imaging Reports available in Care Everywhere. OSH imaging/records received from [facility]: July 29, 2023 -Medical Hx & Imaging Reports available in Care Everywhere. Successfully faxed RICKEY via [employer]~ From: Sosa dias Last change on 07/29/2023 03:08:53 pm Sent on 07/29/2023 03:08:40 pm Completed documented in this encounter [facility] 07-25-2023 Miscellaneous Notes KIERSTEN-S: Clarisa De La [...] Geovanna Avilez APRN.CNM documented in this encounter [facility] 07-25-2023 Kaylee Carrillo LPN - 07/25/2023 3:37 PM EDT SEQUENTIAL SCREENINGS The [facility] offers sequential screenings for women who are [...] It will require an appointment with our security systems technician. This is not an ultrasound performed [...] the above symptoms, contact our office at [phone] and ask to speak with a nurse. After hours, you can call doctors registry at [phone] OR call [facility] at [phone] and ask to have the doctor assembly instructions writer paged. If you consider this an emergency, dial 9-1-1 or go to your nearest emergency department. NEED HELP? Are you dealing with a violent or abusive relationship? Are you a victim of rape or sexual assult? Call [facility] ([place]) 24 hour Crisis Hotline: 379.535.1183 or 617-464-1204. MANUAL Your Guide to a Healthy manual is now on-line. Visit [email or web address] [email or web address] to download your free copy documented in this encounter [facility] 07-25-2023 Miscellaneous Notes Patient should see physician [...] cancel her appt. Clarisa never read the [employer] message. Her OB appointment should be with a physician with hypertension per CP's last message. See phone note. Can any physicians squeeze her in today or can she be rescheduled? Ivett Palomo APRN.CNP documented in this encounter [facility] 07-22-2023 Miscellaneous Notes The blood pressures are within normal ranges and not too low at this point. She may be feeling light headed due to standing on feet (which is common in ) Keep taking Labetalol and patient has next appointment on 07/25/23 with SQUEEGEE OPERATOR- I recommend she see a physician. Please assist with scheduling. Rosalinda Bob APRN.CNM 16w5d Taking labetalol documented in this encounter [facility] 07-13-2023 Miscellaneous Notes S: Clarisa is a [...] weeks or sooner as needed. Ivett Palomo APRN.FORMING AND ASSEMBLING SUPERVISOR documented in this encounter [facility] 07-13-2023 Instructions Haley Barrera MA - 07/13/2023 3:34 PM EST SEQUENTIAL SCREENINGS The [facility] offers sequential screenings for women who are [...] It will require an appointment with our security systems technician. This is not an ultrasound performed [...] the above symptoms, contact our office at [phone] and ask to speak with a nurse. After hours, you can call doctors registry at [phone] OR call [facility] at [phone] and ask to have the doctor assembly instructions writer paged. If you consider this an emergency, dial 9-- or go to your nearest emergency department. NEED HELP? Are you dealing with a violent or abusive relationship? Are you a victim of rape or sexual assult? Call [facility] ([place]) 24 hour Crisis Hotline: 646.267.1681 or 727-032-2776. MANUAL Your Guide to a Healthy manual is now on-line. Visit [email or web address] to download your free copy documented in this encounter [facility] 07-01-2023 Miscellaneous Notes NT US appointment cancelled. Delmy Caballero, RN Called patient's as patient's phone not going through. Will have to cancel Tuesday's NT scan due to being too far along per fatuma Zapien. She will be 14 weeks. Patient's verbalizes understanding and will notify patient. She may call in with further questions. Please cancel NT. documented in this encounter [facility] 07-01-2023 Miscellaneous Notes Referral to [facility] Msg to [place] team to assist with scheduling. 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 Discussed aneuploidy and carrier screening. Regarding aneuploidy [...] May consider in future. Reviewed midwifery and accounting systems analyst services that are available. 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 Chronic Hypertension Affecting - 07/01/2023 Comment: Taking [...] Ischemic Attack) - 07/01/2023 Comment: Went to [place] ER on 04/23/2023 for a migraine, difficulty [...] - 07/01/2023 Comment: Recommend follow up with well blower. Left Lower Quadrant Abdominal Pain - 07/01/2023 Comment: Reports random sharp pain to left side. Likely round ligament pain. To notify if persistent or worsening. No signs of acute abdomen - no guarding, rebound tenderness, or pain with palpation. Follow up in 3 days for NT scan. Plan for MFM consult and neurology consult. Ivett Palomo APRN.FORMING AND ASSEMBLING SUPERVISOR documented in this encounter [facility] 07-01-2023 Instructions Kaylee Yao LPN - 07/01/2023 2:51 PM EST Please select the following link to access the [facility] Your Guide to a Healthy . [email or web address] documented in this encounter [facility] 07-01-2023 History of Past i llness Narrative [...] of this encounter (statuses as of 07/14/2023) [facility] History of Past illness Narrative* Problem Noted [...] of this encounter (statuses as of 07/22/2023) [facility] History of Past illness Narrative* Problem Noted [...] of this encounter (statuses as of 07/26/2023) [facility] History of Past illness Narrative* Problem Noted [...] of this encounter (statuses as of 07/26/2023) [facility] History of Past illness Narrative* Problem Noted [...] of this encounter (statuses as of 08/10/2023) [facility] History of Past illness Narrative* Problem Noted [...] of this encounter (statuses as of 08/16/2023) [facility] History of Past illness Narrative* Problem Noted [...] of this encounter (statuses as of 08/16/2023) [facility] History of Past illness Narrative* Problem Noted [...] of this encounter (statuses as of 08/17/2023) [facility] History of Past illness Narrative* Problem Noted [...] of this encounter (statuses as of 08/19/2023) [facility] History of Past illness Narrative* Problem Noted [...] of this encounter (statuses as of 08/27/2023) [facility]01-15-2024 NotePROCEDURE: ULTRASOUND 1ST TRIMESTER W TRANSVAGINAL, 05/23/2023, [...] cyst. Attention on follow-up recommended in this regard.[facility]12-17-2023 Progress note* CDU Provider Note - [...] Auto 2.17 1.16 - 3.51 K/uL Abs Glasscock Auto 0.69 0.22 - 0.87 K/uL Abs [...] Ref Range HCG (Quant) Serum 22.5 mIU/mL [facility] 7 - ED Result Value Ref Range [...] instructions, discharge summary, prescriptions, and ambulatory referrals. [facility] Work Phone: 1(367) 188-625212-17-2023 Miscellaneous Notes* CDU Provider Note - Jax [...] Auto 2.17 1.16 - 3.51 K/uL Abs Glasscock Auto 0.69 0.22 - 0.87 K/uL Abs [...] Ref Range HCG (Quant) Serum 22.5 mIU/mL [facility] 7 - ED Result Value Ref Range [...] * CDU Provider Note - Danilo Mayo APRN-FORMING AND ASSEMBLING SUPERVISOR - 04/23/2023 10:00 PM EST DEPARTMENT OF [...] Laterality: N/A; Surgeon: Rich Santiago MD; Location: [facility] INTERVENTIONAL RADIOLOGY ([facility]) REMOVAL CENTRAL VENOUS ACCESS DEVICE TUNNELED W/ PORT PUMP Right 11/03/2018 Laterality: Right; Surgeon: Andrew Biggs MD; Location: [facility] INTERVENTIONAL RADIOLOGY ([facility]) INSERTION CVC TUNNELED W/ PORT PUMP N/A 11/03/2018 Laterality: N/A; Surgeon: Andrew Biggs MD; Location: [facility] INTERVENTIONAL RADIOLOGY ([facility]) INSERTION CVC TUNNELED N/A 03/30/2017 Laterality: N/A; Surgeon: Ayde Kearney MD; Location: [facility] INTERVENTIONAL RADIOLOGY ([facility]) MEDICATIONS GIVEN IN THE ED Medications - [...] Auto 2.17 1.16 - 3.51 K/uL Abs Glasscock Auto 0.69 0.22 - 0.87 K/uL Abs [...] PM [id number] Discharge instructions* Discharge Instructions* VERNELL Pina [...] as outlined in your discharge paperwork. CLINICAL DENTAL EQUIPMENT INSTALLER AND SERVICER If you need any further assistance with scheduling follow up care, please call the Clinical Schedule Analyst at . * Attachments The following attachments cannot be sent through Care Everywhere. * Transient Ischemic Attack: General Info (Cameroonian) * Arachnoid Cysts: General Info (Cameroonian) [facility] History of Present illness Narrative* Sneha [...] workup - Local neurology follow up in [place] No further inpatient workup at this time. We will sign off. Signed, Sneha Toth MD PGY-4 Department of Neurology [facility] Emergency department Note* Winnie Esposito RN - 04/24/2023 6:34 AM EST Received report and reviewed patient's chart. Plan of care discussed with EDOU Attending and Midlevel Provider. This CM will remain available to assist with further patient needs. Winnie MARTINEZ Emergency Department Clinical Schedule Analyst [id number] Available via secure chat [facility] Emergency department Note* Winnie Esposito RN - 04/24/2023 6:34 AM EST Received report and reviewed patient's chart. Plan of care discussed with EDOU Attending and Midlevel Provider. This CM will remain available to assist with further patient needs. Winnie MARTINEZ Emergency Department Clinical Schedule Analyst [id number] Available via secure chat * Julio Bunn [...] Laterality: N/A; Surgeon: Rich Santiago MD; [facility] INTER[facility] ([facility]) REMOVAL CENTRAL VENOUS ACCESS DEVICE TUNNELED W/ PORT PUMP Right 11/03/2018 Laterality: Right; Surgeon: Andrew Biggs MD; Location: [facility] INTERVENTIONAL RADIOLOGY ([facility]) INSERTION CVC TUNNELED W/ PORT PUMP N/A 11/03/2018 Laterality: N/A; Surgeon: Andrew Biggs MD; Location: [facility] INTERVENTIONAL RADIOLOGY ([facility]) INSERTION CVC TUNNELED N/A 03/30/2017 Laterality: N/A; Surgeon: Ayde Kearney MD; Location: [facility] INTERVENTIONAL RADIOLOGY ([facility]) CURRENT MEDICATIONS No current [...] N/A; Surgeon: Rich Santiago MD; Location: [facility] INTERVENTIONAL RADIOLOGY ([facility]) REMOVAL CENTRAL VENOUS ACCESS DEVICE TUNNELED W/ PORT PUMP Right 11/03/2018 Laterality: Right; Surgeon: Andrew Biggs MD; Location: [facility] INTERVENTIONAL RADIOLOGY ([facility]) INSERTION CVC TUNNELED W/ PORT PUMP N/A 11/03/2018 Laterality: N/A; Surgeon: Andrew Biggs MD; Location: [facility] INTERVENTIONAL RADIOLOGY ([facility]) INSERTION CVC TUNNELED N/A [...] weakness or tremor. Coordination: Coordination is intact. Aekrul-Vwzv-Nzpxpa Test normal. Comments: Modified [facility] 0 ED [...] her classroom door. [facility] Progress note* CDU Provider Note - [...] Laterality: N/A; Surgeon: Rich Santiago MD; Location: [facility] INTERVENTIONAL RADIOLOGY ([facility]) REMOVAL CENTRAL VENOUS ACCESS DEVICE TUNNELED W/ PORT PUMP Right 11/03/2018 Laterality: Right; Surgeon: Andrew Biggs MD; Location: [facility] INTERVENTIONAL RADIOLOGY ([facility]) INSERTION CVC TUNNELED W/ PORT PUMP N/A 11/03/2018 Laterality: N/A; Surgeon: Andrew Biggs MD; Location: [facility] INTERVENTIONAL RADIOLOGY ([facility]) INSERTION CVC TUNNELED N/A 03/30/2017 Laterality: N/A; Surgeon: Ayde Kearney MD; Location: [facility] INTERVENTIONAL RADIOLOGY ([facility]) MEDICATIONS GIVEN IN THE ED Medications - [...] Auto 2.17 1.16 - 3.51 K/uL Abs Glasscock Auto 0.69 0.22 - 0.87 K/uL Abs [...] signed by: VERNELL Morgan, 04/23/2023 10:00 PM [facility] Work Phone: [phone] 322-441812-16-2023 Physician Emergency department Note* Julio Bunn MD [...] Laterality: N/A; Surgeon: Rich Santiago MD; Location: [facility] INTERVENTIONAL RADIOLOGY ([facility]) REMOVAL CENTRAL VENOUS ACCESS DEVICE TUNNELED W/ PORT PUMP Right 11/03/2018 Laterality: Right; Surgeon: Andrew Biggs MD; Location: [facility] INTERVENTIONAL RADIOLOGY ([facility]) INSERTION CVC TUNNELED W/ PORT PUMP N/A 11/03/2018 Laterality: N/A; Surgeon: Andrew Biggs MD; Location: [facility] INTERVENTIONAL RADIOLOGY ([facility]) INSERTION CVC TUNNELED N/A 03/30/2017 Laterality: N/A; Surgeon: Ayde Kearney MD; Location: [facility] INTERVENTIONAL RADIOLOGY ([facility]) CURRENT MEDICATIONS No current facility-administered medications for [...] ECG/medicine tests: ordered. Julio Bunn MD 04/23/23 [address] [facility] Work Phone: [phone] 924-801212-16-2023 Physician Emergency department Note* Lexie Mendoza MD [...] Laterality: N/A; Surgeon: Rich Santiago MD; Location: [facility] INTERVENTIONAL RADIOLOGY ([facility]) REMOVAL CENTRAL VENOUS ACCESS DEVICE TUNNELED W/ PORT PUMP Right 11/03/2018 Laterality: Right; Surgeon: Andrew Biggs MD; Location: [facility] INTERVENTIONAL RADIOLOGY ([facility]) INSERTION CVC TUNNELED W/ PORT PUMP N/A 11/03/2018 Laterality: N/A; Surgeon: Andrew Biggs MD; Location: [facility] INTERVENTIONAL RADIOLOGY ([facility]) INSERTION CVC TUNNELED N/A 03/30/2017 Laterality: N/A; [...] weakness or tremor. Coordination: Coordination is intact. Xgfmsf-Ctzi-Rcyogh Test normal. Comments: Modified [facility] 0 ED [...] ordered. Lexie Mendoza MD Resident 04/23/232026 [facility] Work Phone: [phone]) 384-715212-16-2023 Emergency department Note* Francisca Urrutia RN - [...] trying to unlock her classroom door. [facility]01-28[facility] History of Present illness Narrative* CHRISTOPHER Rogers - 06/05/2022 8:23 AM EST This note was created using Kiyonter. Subjective Clarisa De La Cruz is a [...] - Low CHRISTOPHER Rogers [facility] Miscellaneous Notes* Telephone Encounter - Becky Lara [...] - 10/08/2021 9:22 AM EDT Last visit ([facility]) 08/16/2019. Patient has not seen or called [...] advise and call patient. [facility]22 NoteHNO ID: [id number] Author: ZIGGY Dubois Service: Anesthesiology Author Type: Brick Layer Type: Anesthesia Procedure Notes Filed: 06/26/2021 12:57 [...] June 26, 2021 TIME: 12:57 PM CSN: [id number] [facility] Discharge Summary Admission on 01/26/2021 10:04 PM [...] symptoms at home. Patient was evaluated in [place] and PreE labs were negative. Reglan improved NANCE prior to transfer to [facility]. Upon arrival to [facility], patient was started on magnesium sulfate for seizure ppx. Ultimately, neurology was consulted for additional workup of patient's NANCE. An MRI/MRV/MRA was obtained and was negative, although a normal variant incomplete [place] of [place] was identified. PreE labs were [...] Clarisa De La Cruz Home Medication Instructions JULIO:[id number] Printed on:01/28/21 1301 Medication Information acetaminophen (TYLENOL) 500 MG tablet Take 1 tablet by mouth 4 times daily as needed for Pain aspirin 81 MG EC tablet Take 81 mg by mouth daily hwujordleh-brhoakslsqjdu-eogcqvll (FIORICET, ESGIC) 50-325-40 MG per tablet Take [...] FGR, POTS Follow up appointment with your doctor/home health occupational therapist - Keep next scheduled appointment Activity - Normal Activity Call your doctor/home health occupational therapist if you have: - leaking fluid - vaginal bleeding - regular contractions: More than 6 contractions in one hour - decreased movement - worsening abdominal (belly) pain - headache, blurry vision, increased swelling, upper abdominal pain Dung Penn DO on 01/28/[address]21 at 1:[address] [facility] SystemEvaluation noteNo assessment information availableWBrec[facility]ville [facility] Work Phone: Evaluation note* Diagnosis Acute otitis externa of right ear, unspecified type- Primary Bacterial sinusitis Unspecified sinusitis (chronic) [facility]* Diagnosis TIA (transient ischemic attack)- Primary Unspecified transient cerebral ischemia Arachnoid cyst Cerebral cysts [facility] Diagnosis TIA (transient ischemic attack) Unspecified transient cerebral ischemia [facility] Diagnosis Encounter for supervision of [...] in second trimester [facility] Diagnosis Encounter for supervision of high risk in second trimester, antepartum- Primary 15 weeks gestation of state, incidental Chronic hypertension affecting [facility] Diagnosis Encounter for supervision of high risk in second trimester, antepartum- Primary Chronic hypertension affecting History of intrauterine in previous 17 weeks gestation of state, incidental [facility]* Diagnosis TIA (transient ischemic attack)- Primary Unspecified transient cerebral ischemia [facility] this [facility]* Diagnosis Migraine with aura and without status migrainosus, not intractable- Primary Migraine with aura, without mention of intractable migraine without mention of status migrainosus Encounter for supervision of high risk in second trimester, antepartum 13 weeks gestation of state, incidental TIA (transient ischemic attack) Unspecified transient cerebral ischemia [facility] this [facility]* Diagnosis Encounter for supervision of high risk in second trimester, antepartum- Primary Chronic hypertension affecting History of pre-eclampsia Personal history of other genital system and obstetric disorders TIA (transient ischemic attack) Unspecified transient cerebral ischemia History of intrauterine in previous 20 weeks gestation of state, incidental [facility] this [facility]* Diagnosis Chronic hypertension affecting - Primary [...] for anatomic survey [facility] Diagnosis Encounter for supervision of high risk in second trimester, antepartum- Primary Chronic hypertension affecting POTS (postural orthostatic tachycardia syndrome) Tachycardia, unspecified Tachycardia Tachycardia, unspecified 23 weeks gestation of state, incidental [facility] Diagnosis Supervision of high risk in second trimester- Primary Unspecified high-risk Vaginal discharge Leukorrhea, not specified as infective 24 weeks gestation of state, incidental Chronic hypertension affecting [facility]* Diagnosis Chronic hypertension complicating or reason for care during childbirth- Primary Benign essential hypertension complicating , childbirth, and the puerperium, unspecified as to episode of care History of intrauterine in previous Supervision of high risk in second trimester Unspecified high-risk Need for vaccination Need for prophylactic vaccination and inoculation against unspecified single disease [facility] this [facility]* Diagnosis History of intrauterine in previous - Primary Encounter for supervision of high risk in second trimester, antepartum Chronic hypertension affecting POTS (postural orthostatic tachycardia syndrome) Tachycardia, unspecified Tachycardia Tachycardia, unspecified 28 weeks gestation of state, incidental documented [facility] this [facility]* Diagnosis History of intrauterine in previous - Primary Encounter for supervision of high risk in second trimester, antepartum Chronic hypertension affecting POTS (postural orthostatic tachycardia syndrome) Tachycardia, unspecified documented [facility] this encounter [facility]* Diagnosis 29 weeks gestation of - Primary state, incidental Encounter for supervision of high risk in second trimester, antepartum Chronic hypertension affecting POTS (postural orthostatic tachycardia syndrome) Tachycardia, unspecified [facility]* Diagnosis History of intrauterine in previous - Primary Chronic hypertension complicating or reason for care during childbirth Benign essential hypertension complicating , childbirth, and the puerperium, unspecified as to episode of care 29 weeks gestation of state, incidental [facility] this encounter [facility]* Diagnosis 29 weeks gestation of - Primary state, incidental Encounter for supervision of high risk in second trimester, antepartum Chronic hypertension affecting History of intrauterine in previous [facility]* Diagnosis 30 weeks gestation of - Primary state, incidental Encounter for supervision of high risk in second trimester, antepartum Chronic hypertension affecting [facility]* Diagnosis Hypertension affecting , third trimester- Primary Chronic hypertension complicating or reason for care during childbirth Benign essential hypertension complicating , childbirth, and the puerperium, unspecified as to episode of care History of intrauterine in previous [facility]* Diagnosis Encounter for supervision of high risk in second trimester, antepartum- Primary 30 weeks gestation of state, incidental Chronic hypertension affecting History of intrauterine in previous documented [facility] this encounter [facility]* Diagnosis Migraine with aura and without status migrainosus, not intractable Migraine with aura, without mention of intractable migraine without mention of status migrainosus documented [facility] this encounter [facility]* Diagnosis 31 weeks gestation of - Primary state, incidental Encounter for supervision of high risk in third trimester, antepartum History of intrauterine in previous documented in this encounter [facility]* Diagnosis Chronic hypertension complicating or reason for care during childbirth Benign essential hypertension complicating , childbirth, and the puerperium, unspecified as to episode of care History of intrauterine in previous documented [facility] this encounter [facility]* Diagnosis High-risk in third trimester- Primary 31 weeks gestation of state, incidental Chronic hypertension complicating or reason for care during childbirth Benign essential hypertension complicating , childbirth, and the puerperium, unspecified as to episode of care documented [facility] this encounter [facility]* Diagnosis Chronic hypertension complicating or reason for care during childbirth- Primary Benign essential hypertension complicating , childbirth, and the puerperium, unspecified as to episode of care High-risk in third trimester History of intrauterine in previous 32 weeks gestation of state, incidental documented [facility] this encounter [facility]* Diagnosis 32 weeks gestation of - Primary state, incidental Chronic hypertension complicating or reason for care during childbirth Benign essential hypertension complicating , childbirth, and the puerperium, unspecified as to episode of care History of intrauterine in previous documented in this encounter [facility]* Diagnosis Chronic hypertension affecting - Primary History of intrauterine in previous documented in this encounter [facility]* Diagnosis 33 weeks gestation of - Primary state, incidental Chronic hypertension affecting High-risk in third trimester documented in this encounter [facility]* Diagnosis Hypertension affecting in third trimester- Primary Chronic hypertension complicating or reason for care during childbirth Benign essential hypertension complicating , childbirth, and the puerperium, unspecified as to episode of care History of intrauterine in previous 33 weeks gestation of state, incidental [facility] Diagnosis 33 weeks gestation of - Primary state, incidental High-risk in third trimester Chronic hypertension complicating or reason for care during childbirth Benign essential hypertension complicating , childbirth, and the puerperium, unspecified as to episode of care History of intrauterine in previous Hypertension affecting in third trimester [facility]* Diagnosis 34 weeks gestation of - Primary state, incidental High-risk in third trimester Chronic hypertension complicating or reason for care during childbirth Benign essential hypertension complicating , childbirth, and the puerperium, unspecified as to episode of care documented [facility] this encounter [facility]* Diagnosis History of intrauterine in previous - Primary Chronic hypertension complicating or reason for care during childbirth Benign essential hypertension complicating , childbirth, and the puerperium, unspecified as to episode of care 34 weeks gestation of state, incidental [facility] Diagnosis High-risk in third trimester- Primary Chronic hypertension complicating or reason for care during childbirth Benign essential hypertension complicating , childbirth, and the puerperium, unspecified as to episode of care History of intrauterine in previous Chronic hypertension affecting 34 weeks gestation of state, incidental [facility] Diagnosis Chronic hypertension complicating or reason for care during childbirth- Primary Benign essential hypertension complicating , childbirth, and the puerperium, unspecified as to episode of care History of intrauterine in previous 35 weeks gestation of state, incidental [facility]* Diagnosis Postoperative pain- Primary Other acute postoperative pain Hypertension in , preeclampsia, delivered Mild or unspecified pre-eclampsia, with delivery [facility] Diagnosis S/P section- Primary Other postprocedural status Chronic hypertension [facility]* Diagnosis Encounter for supervision of [...] transient cerebral ischemia [facility] Diagnosis Dysuria- Primary [facility]* Diagnosis Dysuria- Primary documented in this encounter [facility] note* Diagnosis Migraine with aura and without status migrainosus, not intractable Migraine with aura, without mention of intractable migraine without mention of status migrainosus [facility]* Diagnosis care and examination- Primary Routine follow-up Encounter for screening for malignant neoplasm of cervix Screening for malignant neoplasm of the cervix documented [facility]* Diagnosis TIA (transient ischemic attack)- Primary Unspecified transient cerebral ischemia [facility] Diagnosis Sinobronchitis- Primary Unspecified sinusitis (chronic) documented in this encounter [facility] note* Diagnosis Abnormal uterine bleeding (AUB)- Primary Dysmenorrhea documented in this encounter [facility] note* Diagnosis Abnormal uterine bleeding (AUB)- Primary Dysmenorrhea Subseptate uterus Septate uterus Adenomyosis of uterus documented in this encounter [facility] note* Diagnosis Adenomyosis of uterus Irregular menstruation Irregular menstrual cycle [facility] Diagnosis Abnormal uterine bleeding (AUB)- Primary documented in this encounter [facility] note* Diagnosis Abnormal uterine bleeding (AUB)- Primary Adenomyosis of uterus Irregular menstruation Irregular menstrual cycle documented in this encounter [facility] for referral (narrative)* Diagnostic Procedure Only (Routine) - Authorized Specialty Diagnoses / Procedures Referred By Ivelisse lee Referred To Contact [facility] Diagnoses 23 weeks gestation of Encounter for supervision of high risk in second trimester, antepartum Chronic hypertension affecting POTS (postural orthostatic tachycardia syndrome) Tachycardia Procedures OBSTETRIC ULTRASOUND WHI US PREG UTERUS AFTER 1ST TRIMEST GESTATION Jen Arredondo MD [address] [place] [address] [address] Referral ID Status Reason Start Date Expiration Date Visits Requested Visits Authorized [id number] Authorized Auto-Generat ed Referral 09/07/2023 09/06/2024 8 1 * Consult, Test, Treat (Routine) - Authorized Specialty Diagnoses / Procedures Referred By Contac t Referred To Contact Cardiology Diagnoses 23 weeks gestation of Chronic hypertension affecting POTS (postural orthostatic tachycardia syndrome) Tachycardia Procedures CONSULT TO CARDIOLOGY OFFICE/OUTPATIENT [facility] 60 MINUTES Jen Arredondo MD [address] [place] [address] Referral ID Status Reason Start Date Expiration Date Visits Requested Visits Authorized [id number] Authorized PCP Requested Referral 09/07/2023 09/06/2024 1 1 [facility] for referral (narrative)* Diagnostic Procedure Only (Routine) - Authorized Specialty Diagnoses / Procedures Referred By Ivelisse t Referred To Contact [facility] Diagnoses Chronic hypertension complicating or reason for care during childbirth History of intrauterine in previous Supervision of high risk in second trimester Procedures BIOPHYSICAL PROFILE US [facility] BIOPHYSICAL PROFILE NON-STRESS TESTING Jen Arredondo MD [address] [place] [address] [facility] [address] [place] [address] Referral ID Status Reason Start Date Expiration Date Visits Requested Visits Authorized [id number] Authorized Auto-Generat ed Referral 10/11/2023 10/10/2024 15 1 * Outpatient Procedure (Routine) - Authorized Specialty Diagnoses / Procedures Referred By Ivelisse t Referred To Contact [facility] Diagnoses Chronic hypertension complicating or reason for care during childbirth History of intrauterine in previous Supervision of high risk in second trimester Procedures NON-STRESS TEST NON-STRESS TEST Jen Arredondo MD [address] [place] [address] [address] Referral ID Status Reason Start Date Expiration Date Visits Requested Visits Authorized [id number] Authorized Auto-Generat ed Referral 10/11/2023 10/10/2024 15 [facility] Diagnostic Procedure Only (Routine) - Closed Specialty Diagnoses / Procedures Referred By Contac t Referred To Contact [facility] Diagnoses Abnormal uterine bleeding (AUB) Dysmenorrhea Procedures PELVIC US WHI US PELVIC NONOBSTETRIC REAL-TIME IMAGE COMPLETE Geovanna Avilez APRN.CNM [address] [place] [address] Phone: tel: fax: [address] [address] Referral ID Status Reason Start Date Expiration Date V isits Requested Visits Authorized [id number] Closed Auto-Generate d Referral 10/22/2024 10/22/2025 1 1 [facility] Summary Purpose Family History No Family History Records Found Relationship Condition Age at Onset Recorded Date/T chiquis father Diabetes mellitus Unknown Hypertension Unknown Advance Directives No Advanced Directives Records FoundDocuments on File Type Date Recorded 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[employer] Advance Directive(s) 06/26/2021 9:55 AM Advance Directive(s) 06/05/2021 12:55 PM Advance Directive Response Recorded Date/ Time Advance Directives No July 17 10:00am Living Will No February 11 4:25am Power of Rn Quality No February 11 4:25am Advance Directive Response Recorded Date/ Time Advance Directives No July 17 11:00am Living Will No February 11 5:25am Power of Rn Quality No February 11 5:25am Reason for Referral Specialty Diagnoses / Procedures Referred By Contac t Referred To Contact Diagnoses TIA (transient ischemic attack) Procedures ECHOCARDIOGRAM OR ECHO HEART XTHORACIC,COMPLETE W DOPPLER Jean Govea, CONSULTING BUSINESS DEVELOPER-FORMING AND ASSEMBLING SUPERVISOR [address] [place] [address] Referral ID Status Reason Start Date Expiration Date V isits Requested Visits Authorized [id number] Auth Not Needed 04/24/2023 05/18/2024 1 1 Specialty Diagnoses / Procedures Referred By Contac t Referred To Contact Neurology Diagnoses TIA (transient ischemic attack) Jean Govea CONSULTING BUSINESS DEVELOPER-FORMING AND ASSEMBLING SUPERVISOR [address] [place] [address] Referral ID Status Reason Start Date Expiration Date V isits Requested Visits Authorized [id number] New Request 04/24/2023 05/18/2024 1 1 Specialty Diagnoses / Procedures Referred By Contac t Referred To Contact Procedures ECG Julio Bunn MD [address] [place] [address] Referral ID Status Reason Start Date Expiration Date V isits Requested Visits Authorized [id number] New Request 04/23/2023 05/17/2024 1 1 Specialty Diagnoses / Procedures Referred By Contac t Referred To Contact Echocardiography Diagnoses TIA (transient ischemic attack) Procedures ECHOCARDIOGRAM OR ECHO HEART XTHORACIC,COMPLETE W DOPPLER Jean Govea, CONSULTING BUSINESS DEVELOPER-FORMING AND ASSEMBLING SUPERVISOR [address] [place] [address] [facility] [place] [address] [place] [address] Referral ID Status Reason Start Date Expiration Date Visits Re quested Visits Authorized [id number] Closed 04/24/2023 05/18/2024 1 1 Specialty Diagnoses / Procedures Referred By Contac t Referred To Contact Diagnoses Encounter for supervision of high risk in second trimester, antepartum 13 weeks gestation of Chronic hypertension affecting History of intrauterine in previous TIA (transient ischemic attack) Procedures CONSULT TO MATERNAL MEDI OFFICE/OUTPATIENT [facility] 60 MINUTES Ivett Palomo APRN.FORMING AND ASSEMBLING SUPERVISOR [address] [place] [place] [address] Referral ID Status Reason Start Date Expiration Date Visits Requested Visits Authorized [id number] Authorized PCP Requested Referral Auto-Generate d Referral 07/01/2023 06/30/2024 1 1 Specialty Diagnoses / Procedures Referred By Contac t Referred To Contact [facility] Diagnoses Encounter for supervision of high risk in second trimester, antepartum Procedures NUCHAL TRANSLUCENCY WHI US NUCHAL TRANSLUCENCY 1ST GESTATION Ivett Palomo APRN.FORMING AND ASSEMBLING SUPERVISOR [address] [place] [address] [address] Referral ID Status Reason Start Date Expiration Date Visits Requested Visits Authorized [id number] Authorized Auto-Generat ed Referral 07/01/2023 06/30/2024 1 1 Specialty Diagnoses / Procedures Referred By Contac t Referred To Contact Neurology Diagnoses Encounter for supervision of high risk in second trimester, antepartum 13 weeks gestation of TIA (transient ischemic attack) Procedures CONSULT TO NEUROLOGY OFFICE/OUTPATIENT [facility] 60 MINUTES Ivett Palomo APRN.FORMING AND ASSEMBLING SUPERVISOR [address] [place] [place] [address] Referral ID Status Reason Start Date Expiration Date Visits Requested Visits Authorized [id number] Authorized PCP Requested Referral 07/01/2023 06/30/2024 1 1 Specialty Diagnoses / Procedures Referred By Contac t Referred To Contact [facility] Diagnoses Encounter for supervision of high risk in second trimester, antepartum 13 weeks gestation of Procedures OBSTETRIC ULTRASOUND WHI US PREG UTERUS AFTER 1ST TRIMEST GESTATION Ivett Palomo APRN.FORMING AND ASSEMBLING SUPERVISOR [address] [place] [place] [address] [address] Referral ID Status Reason Start Date Expiration Date Visits Requested Visits Authorized [id number] Pending Review Auto-Generat ed Referral 07/01/2023 06/30/2024 1 1 Specialty Diagnoses / Procedures Referred By Contac t Referred To Contact Neurology Diagnoses Migraine with aura and without status migrainosus, not intractable Procedures CONSULT TO NEUROLOGY OFFICE/OUTPATIENT [facility] 60 MINUTES Sneha Cardenas APRN.FORMING AND ASSEMBLING SUPERVISOR [address] [place] [address] Referral ID Status Reason Start Date Expiration Date Visits Requested Visits Authorized [id number] Authorized PCP Requested Referral 08/02/2023 08/01/2024 1 1 Specialty Diagnoses / Procedures Referred By Contac t Referred To Contact Diagnoses Migraine with aura and without status migrainosus, not intractable Procedures PROVIDER ORDERED FOLLOW UP OFFICE/OUTPATIENT [facility] [address] [place] [address] [place] [address] Referral ID Status Reason Start Date Expiration Date Visits Requested Visits Authorized [id number] Authorized PCP Requested Referral 01/08/2024 10/24/2024 1 1 Chief Complaint and Reason for Visit 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 DATE CREATED AUTHOR AUTHOR'S ORGANIZ ATION 03/14/2021 [facility] DATE CREATED AUTHOR AUTHOR'S ORGANIZ ATION 05/21/2021 [facility] DATE CREATED AUTHOR AUTHOR'S ORGANIZ ATION 07/01/2021 [facility] DATE CREATED AUTHOR AUTHOR'S ORGANIZ ATION 06/16/2023 [facility] DATE CREATED AUTHOR AUTHOR'S ORGANIZ ATION 07/24/2023 [facility] DATE CREATED AUTHOR AUTHOR'S ORGANIZ ATION 08/16/2023 [facility] DATE CREATED AUTHOR AUTHOR'S ORGANIZ ATION 04/10/2024 [facility] DATE CREATED AUTHOR AUTHOR'S ORGANIZ ATION 02/12/2025 [facility] DATE CREATED AUTHOR AUTHOR'S ORGANIZ ATION [facility] Source Comments (unrecognize d section and content) In the event this informatio n is protected by the Federal Confidentiality of Alcohol and Drug Abuse Patient Records regulations: The Federal rules restrict any use of the information to criminally investigate or prosecute any alcohol or drug abuse patient.[facility] the event this information is protected by the Federal Confidentiality of Alcohol and Drug Abuse Patient Records regulations: The Federal rules restrict any use of the information to criminally investigate or prosecute any alcohol or drug abuse patient.[facility] the event this information is protected by the Federal Confidentiality of Alcohol and Drug Abuse Patient Records regulations: The Federal rules restrict any use of the information to criminally investigate or prosecute any alcohol or drug abuse patient.[facility] the event this information is protected by the Federal Confidentiality of Alcohol and Drug Abuse Patient Records regulations: The Federal rules restrict any use of the information to criminally investigate or prosecute any alcohol or drug abuse patient.[facility] the event this information is protected by the Federal Confidentiality of Alcohol and Drug Abuse Patient Records regulations: The Federal rules restrict any use of the information to criminally investigate or prosecute any alcohol or drug abuse patient.[facility] the event this information is protected by the Federal Confidentiality of Alcohol and Drug Abuse Patient Records regulations: The Federal rules restrict any use of the information to criminally investigate or prosecute any alcohol or drug abuse patient.[facility] the event this information is protected by the Federal Confidentiality of Alcohol and Drug Abuse Patient Records regulations: The Federal rules restrict any use of the information to criminally investigate or prosecute any alcohol or drug abuse patient.[facility] the event this information is protected by the Federal Confidentiality of Alcohol and Drug Abuse Patient Records regulations: The Federal rules restrict any use of the information to criminally investigate or prosecute any alcohol or drug abuse patient.[facility] the event this information is protected by the Federal Confidentiality of Alcohol and Drug Abuse Patient Records regulations: The Federal rules restrict any use of the information to criminally investigate or prosecute any alcohol or drug abuse patient.[facility] the event this information is protected by the Federal Confidentiality of Alcohol and Drug Abuse Patient Records regulations: The Federal rules restrict any use of the information to criminally investigate or prosecute any alcohol or drug abuse patient.[facility] the event this information is protected by the Federal Confidentiality of Alcohol and Drug Abuse Patient Records regulations: The Federal rules restrict any use of the information to criminally investigate or prosecute any alcohol or drug abuse patient.[facility] Center[facility] the event this information is protected by the Federal Confidentiality of Alcohol and Drug Abuse Patient Records regulations: The Federal rules restrict any use of the information to criminally investigate or prosecute any alcohol or drug abuse patient.[facility] the event this information is protected by the Federal Confidentiality of Alcohol and Drug Abuse Patient Records regulations: The Federal rules restrict any use of the information to criminally investigate or prosecute any alcohol or drug abuse patient.[facility] the event this information is protected by the Federal Confidentiality of Alcohol and Drug Abuse Patient Records regulations: The Federal rules restrict any use of the information to criminally investigate or prosecute any alcohol or drug abuse patient.[facility] Center[facility] the event this information is protected by the Federal Confidentiality of Alcohol and Drug Abuse Patient Records regulations: The Federal rules restrict any use of the information to criminally investigate or prosecute any alcohol or drug abuse patient.[facility] Center[facility] the event this information is protected by the Federal Confidentiality of Alcohol and Drug Abuse Patient Records regulations: The Federal rules restrict any use of the information to criminally investigate or prosecute any alcohol or drug abuse patient.[facility] Center[facility] the event this information is protected by the Federal Confidentiality of Alcohol and Drug Abuse Patient Records regulations: The Federal rules restrict any use of the information to criminally investigate or prosecute any alcohol or drug abuse patient.[facility] Center[facility] the event this information is protected by the Federal Confidentiality of Alcohol and Drug Abuse Patient Records regulations: The Federal rules restrict any use of the information to criminally investigate or prosecute any alcohol or drug abuse patient.[facility] Center[facility] the event this information is protected by the Federal Confidentiality of Alcohol and Drug Abuse Patient Records regulations: The Federal rules restrict any use of the information to criminally investigate or prosecute any alcohol or drug abuse patient.[facility] CenterIn the event this information is protected by the Federal Confidentiality of Alcohol and Drug Abuse Patient Records regulations: The Federal rules restrict any use of the information to criminally investigate or prosecute any alcohol or drug abuse patient.[facility] CenterIn the event this information is protected by the Federal Confidentiality of Alcohol and Drug Abuse Patient Records regulations: The Federal rules restrict any use of the information to criminally investigate or prosecute any alcohol or drug abuse patient.[facility] CenterIn the event this information is protected by the Federal Confidentiality of Alcohol and Drug Abuse Patient Records regulations: The Federal rules restrict any use of the information to criminally investigate or prosecute any alcohol or drug abuse patient.[facility] Center[facility] the event this information is protected by the Federal Confidentiality of Alcohol and Drug Abuse Patient Records regulations: The Federal rules restrict any use of the information to criminally investigate or prosecute any alcohol or drug abuse patient.[facility] CenterIn the event this information is protected by the Federal Confidentiality of Alcohol and Drug Abuse Patient Records regulations: The Federal rules restrict any use of the information to criminally investigate or prosecute any alcohol or drug abuse patient.[facility] CenterIn the event this information is protected by the Federal Confidentiality of Alcohol and Drug Abuse Patient Records regulations: The Federal rules restrict any use of the information to criminally investigate or prosecute any alcohol or drug abuse patient.[facility] CenterIn the event this information is protected by the Federal Confidentiality of Alcohol and Drug Abuse Patient Records regulations: The Federal rules restrict any use of the information to criminally investigate or prosecute any alcohol or drug abuse patient.[facility] CenterIn the event this information is protected by the Federal Confidentiality of Alcohol and Drug Abuse Patient Records regulations: The Federal rules restrict any use of the information to criminally investigate or prosecute any alcohol or drug abuse patient.[facility] CenterIn the event this information is protected by the Federal Confidentiality of Alcohol and Drug Abuse Patient Records regulations: The Federal rules restrict any use of the information to criminally investigate or prosecute any alcohol or drug abuse patient.[facility] CenterIn the event this information is protected by the Federal Confidentiality of Alcohol and Drug Abuse Patient Records regulations: The Federal rules restrict any use of the information to criminally investigate or prosecute any alcohol or drug abuse patient.[facility] CenterIn the event this information is protected by the Federal Confidentiality of Alcohol and Drug Abuse Patient Records regulations: The Federal rules restrict any use of the information to criminally investigate or prosecute any alcohol or drug abuse patient.[facility] CenterIn the event this information is protected by the Federal Confidentiality of Alcohol and Drug Abuse Patient Records regulations: The Federal rules restrict any use of the information to criminally investigate or prosecute any alcohol or drug abuse patient.[facility] CenterIn the event this information is protected by the Federal Confidentiality of Alcohol and Drug Abuse Patient Records regulations: The Federal rules restrict any use of the information to criminally investigate or prosecute any alcohol or drug abuse patient.[facility] CenterIn the event this information is protected by the Federal Confidentiality of Alcohol and Drug Abuse Patient Records regulations: The Federal rules restrict any use of the information to criminally investigate or prosecute any alcohol or drug abuse patient.[facility] CenterIn the event this information is protected by the Federal Confidentiality of Alcohol and Drug Abuse Patient Records regulations: The Federal rules restrict any use of the information to criminally investigate or prosecute any alcohol or drug abuse patient.[facility] CenterIn the event this information is protected by the Federal Confidentiality of Alcohol and Drug Abuse Patient Records regulations: The Federal rules restrict any use of the information to criminally investigate or prosecute any alcohol or drug abuse patient.[facility] CenterIn the event this information is protected by the Federal Confidentiality of Alcohol and Drug Abuse Patient Records regulations: The Federal rules restrict any use of the information to criminally investigate or prosecute any alcohol or drug abuse patient.[facility] CenterIn the event this information is protected by the Federal Confidentiality of Alcohol and Drug Abuse Patient Records regulations: The Federal rules restrict any use of the information to criminally investigate or prosecute any alcohol or drug abuse patient.[facility] CenterIn the event this information is protected by the Federal Confidentiality of Alcohol and Drug Abuse Patient Records regulations: The Federal rules restrict any use of the information to criminally investigate or prosecute any alcohol or drug abuse patient.[facility] CenterIn the event this information is protected by the Federal Confidentiality of Alcohol and Drug Abuse Patient Records regulations: The Federal rules restrict any use of the information to criminally investigate or prosecute any alcohol or drug abuse patient.[facility] CenterIn the event this information is protected by the Federal Confidentiality of Alcohol and Drug Abuse Patient Records regulations: The Federal rules restrict any use of the information to criminally investigate or prosecute any alcohol or drug abuse patient.[facility] CenterIn the event this information is protected by the Federal Confidentiality of Alcohol and Drug Abuse Patient Records regulations: The Federal rules restrict any use of the information to criminally investigate or prosecute any alcohol or drug abuse patient.[facility] CenterIn the event this information is protected by the Federal Confidentiality of Alcohol and Drug Abuse Patient Records regulations: The Federal rules restrict any use of the information to criminally investigate or prosecute any alcohol or drug abuse patient.[facility] CenterIn the event this information is protected by the Federal Confidentiality of Alcohol and Drug Abuse Patient Records regulations: The Federal rules restrict any use of the information to criminally investigate or prosecute any alcohol or drug abuse patient.[facility] CenterIn the event this information is protected by the Federal Confidentiality of Alcohol and Drug Abuse Patient Records regulations: The Federal rules restrict any use of the information to criminally investigate or prosecute any alcohol or drug abuse patient.[facility] CenterIn the event this information is protected by the Federal Confidentiality of Alcohol and Drug Abuse Patient Records regulations: The Federal rules restrict any use of the information to criminally investigate or prosecute any alcohol or drug abuse patient.[facility] CenterIn the event this information is protected by the Federal Confidentiality of Alcohol and Drug Abuse Patient Records regulations: The Federal rules restrict any use of the information to criminally investigate or prosecute any alcohol or drug abuse patient.[facility] CenterIn the event this information is protected by the Federal Confidentiality of Alcohol and Drug Abuse Patient Records regulations: The Federal rules restrict any use of the information to criminally investigate or prosecute any alcohol or drug abuse patient.[facility] CenterIn the event this information is protected by the Federal Confidentiality of Alcohol and Drug Abuse Patient Records regulations: The Federal rules restrict any use of the information to criminally investigate or prosecute any alcohol or drug abuse patient.[facility] CenterIn the event this information is protected by the Federal Confidentiality of Alcohol and Drug Abuse Patient Records regulations: The Federal rules restrict any use of the information to criminally investigate or prosecute any alcohol or drug abuse patient.[facility] CenterIn the event this information is protected by the Federal Confidentiality of Alcohol and Drug Abuse Patient Records regulations: The Federal rules restrict any use of the information to criminally investigate or prosecute any alcohol or drug abuse patient.[facility] CenterIn the event this information is protected by the Federal Confidentiality of Alcohol and Drug Abuse Patient Records regulations: The Federal rules restrict any use of the information to criminally investigate or prosecute any alcohol or drug abuse patient.[facility] CenterIn the event this information is protected by the Federal Confidentiality of Alcohol and Drug Abuse Patient Records regulations: The Federal rules restrict any use of the information to criminally investigate or prosecute any alcohol or drug abuse patient.[facility] CenterIn the event this information is protected by the Federal Confidentiality of Alcohol and Drug Abuse Patient Records regulations: The Federal rules restrict any use of the information to criminally investigate or prosecute any alcohol or drug abuse patient.[facility] CenterIn the event this information is protected by the Federal Confidentiality of Alcohol and Drug Abuse Patient Records regulations: The Federal rules restrict any use of the information to criminally investigate or prosecute any alcohol or drug abuse patient.[facility] CenterIn the event this information is protected by the Federal Confidentiality of Alcohol and Drug Abuse Patient Records regulations: The Federal rules restrict any use of the information to criminally investigate or prosecute any alcohol or drug abuse patient.[facility] CenterIn the event this information is protected by the Federal Confidentiality of Alcohol and Drug Abuse Patient Records regulations: The Federal rules restrict any use of the information to criminally investigate or prosecute any alcohol or drug abuse patient.[facility] CenterIn the event this information is protected by the Federal Confidentiality of Alcohol and Drug Abuse Patient Records regulations: The Federal rules restrict any use of the information to criminally investigate or prosecute any alcohol or drug abuse patient.[facility] CenterIn the event this information is protected by the Federal Confidentiality of Alcohol and Drug Abuse Patient Records regulations: The Federal rules restrict any use of the information to criminally investigate or prosecute any alcohol or drug abuse patient.[facility] CenterIn the event this information is protected by the Federal Confidentiality of Alcohol and Drug Abuse Patient Records regulations: The Federal rules restrict any use of the information to criminally investigate or prosecute any alcohol or drug abuse patient.[facility] CenterIn the event this information is protected by the Federal Confidentiality of Alcohol and Drug Abuse Patient Records regulations: The Federal rules restrict any use of the information to criminally investigate or prosecute any alcohol or drug abuse patient.[facility] CenterIn the event this information is protected by the Federal Confidentiality of Alcohol and Drug Abuse Patient Records regulations: The Federal rules restrict any use of the information to criminally investigate or prosecute any alcohol or drug abuse patient.[facility] CenterIn the event this information is protected by the Federal Confidentiality of Alcohol and Drug Abuse Patient Records regulations: The Federal rules restrict any use of the information to criminally investigate or prosecute any alcohol or drug abuse patient.[facility] CenterIn the event this information is protected by the Federal Confidentiality of Alcohol and Drug Abuse Patient Records regulations: The Federal rules restrict any use of the information to criminally investigate or prosecute any alcohol or drug abuse patient.[facility] Reason for Visit (unrecogniz ed section and content) Reason Comments US Specialty Diagnoses / Procedures Referred By Ivelisse lee Referred To Contact [facility] Diagnoses Chronic hypertension complicating or reason for care during childbirth History of intrauterine in previous Supervision of high risk in second trimester Procedures BIOPHYSICAL PROFILE US WHI BIOPHYSICAL PROFILE NON-STRESS TESTING Jen Arredondo MD [address] [place] [address] [facility] [address] [place] [address] Referral ID Status Reason Start Date Expiration Date V isits Requested Visits Authorized [id number] Closed Auto-Generate d Referral 10/11/2023 10/10/2024 15 1 Reason Onset Date Comments Care 10/14/2023 Specialty Diagnoses / Procedures Referred By Ivelisse lee Referred To Contact [facility] Diagnoses 23 weeks gestation of Encounter for supervision of high risk in second trimester, antepartum Chronic hypertension affecting POTS (postural orthostatic tachycardia syndrome) Tachycardia Procedures OBSTETRIC ULTRASOUND WHI US PREG UTERUS AFTER 1ST TRIMEST GESTATION Jen Arredondo MD [address] [place] [address] [facility] [address] [address] Referral ID Status Reason Start Date Expiration Date V isits Requested Visits Authorized [id number] Closed Auto-Generate d Referral 09/07/2023 09/06/2024 8 1 Reason Comments Patient Question Patient Update Reason Comments Ear Pain With drainage and si nus problem x 2 weeks Specialty Diagnoses / Procedures Referred By Contac t Referred To Contact Echocardiography Diagnoses TIA (transient ischemic attack) Procedures ECHOCARDIOGRAM OR ECHO HEART XTHORACIC,COMPLETE W DOPPLER Jean Govea, CONSULTING BUSINESS DEVELOPER-FORMING AND ASSEMBLING SUPERVISOR [address] [place] [address] [facility] [place] [address] [place] [address] Referral ID Status Reason Start Date Expiration Date Visits Re quested Visits Authorized [id number] Closed 04/24/2023 05/18/2024 1 1 Reason Comments [...] MINUTES Ivett Palomo APRN.CNP [address] [place] [address] Referral ID Status Reason Start Date Expiration Date V isits Requested Visits Authorized [id number] Closed PCP Requested Referral 07/01/2023 06/30/2024 1 [...] Ivett Palomo APRN.CNP [address] [place] [place] [address] Referral ID Status Reason Start Date Expiration Date V isits Requested Visits Authorized [id number] Closed PCP Requested Referral Auto-Generated Referral 07/01/2023 [...] not intractable Procedures CONSULT TO NEUROLOGY OFFICE/OUTPATIENT [facility] 60 MINUTES Sneha Cardenas APRN.FORMING AND ASSEMBLING SUPERVISOR [address] [place] [address] Referral ID Status Reason Start Date Expiration Date V isits Requested Visits Authorized [id number] Closed PCP Requested Referral 08/02/2023 08/01/2024 1 [...] intractable Procedures PROVIDER ORDERED FOLLOW UP OFFICE/OUTPATIENT [facility] [address] [place] [address] [place] [address] Referral ID Status Reason Start Date Expiration Date V isits Requested Visits Authorized [id number] Closed PCP Requested Referral 01/08/2024 10/24/2024 1 1 Reason Comments Care Reason Comments Imaging/Records Reason Comments Ear Pain Cough Reason Comments Menstrual Problem Has been having 2 pe riods per month since July Reason Comments Menstrual Problem Reason Comments Heavy Bleeding Reason Comments Endometrial Biopsy Specialty Diagnoses / Procedures Referred By Contac t [facility]erred [facility] Diagnoses Abnormal uterine bleeding (AUB) Procedures ENDOMETRIAL BIOPSY ENDOMETRIAL BX W/WO ENDOCERVIX BX W/O DILAT SPX Geovanna Avilez APRN.CNJim [address] [place] [address] Phone: tel: fax: [facility] [address] [place] [phone] Referral ID Status Reason Start Date Expiration Date V isits Requested Visits Authorized [id number] Closed Auto-Generate d Referral 12/25/2024 12/25/2025 1 1 Care Teams (unrecognized sec tion and content) Trimmer Sorter Relationship Specialty Start Date End Date Ottoniel Encarnacion [address] [place] [address] PCP - General Family Practice 02/13/20 Trimmer Sorter Relationship Specialty Start Date End Date Ottoniel Encarnacion [address] [place] [address] PCP - General Family Medicine 02/13/20 Trimmer Sorter Relationship Specialty Start Date End Date Ottoniel Encarnacion FNP PCP - General Certified Nurse Practitioner 06/14/16 Trimmer Sorter Relationship Specialty Start Date End Date Ottoniel Encarnacion FNP PCP - General Certified Nurse Practitioner 06/14/16 Trimmer Sorter Relationship Specialty Start Date End Date Ottoniel Encarnacion CNP [address] [place] [address] PCP - General Family Medicine 02/13/20 Trimmer Sorter Relationship Specialty Start Date End Date Ottoniel Encarnacion CNP [address] [place] [address] PCP - General Family Medicine 02/13/20 Trimmer Sorter Relationship Specialty Start Date End Date Ottoniel Encarnacion CNP [address] [place] [address] PCP - General Family Medicine 02/13/20 Trimmer Sorter Relationship Specialty Start Date End Date Ottoniel Encarnacion CNP [address] [place] [address] PCP - General Family Medicine 02/13/20 Trimmer Sorter Relationship Specialty Start Date End Date Ottoniel Encarnacion CNP [address] [place] [address] PCP - General Family Medicine 02/13/20 Trimmer Sorter Relationship Specialty Start Date End Date Ottoniel Encarnacion CNP [address] [place] [address] PCP - General Family Medicine 02/13/20 Trimmer Sorter Relationship Specialty Start Date End Date Ottoniel Encarnacion CNP [address] [place] [address] PCP - General Family Medicine 02/13/20 Trimmer Sorter Relationship Specialty Start Date End Date Ottoniel Encarnacion CNP [address] [place] [address] PCP - General Family Medicine 02/13/20 Trimmer Sorter Relationship Specialty Start Date End Date Ottoniel Encarnacion CNP [address] [place] [address] PCP - General Family Medicine 02/13/20 Trimmer Sorter Relationship Specialty Start Date End Date Ottoniel Encarnacion CNP [address] [place] [address] PCP - General Family Medicine 02/13/20 Trimmer Sorter Relationship Specialty Start Date End Date Ottoniel Encarnacion CNP [address] [place] [address] PCP - General Family Medicine 02/13/20 Trimmer Sorter Relationship Specialty Start Date End Date Ottoniel Encarnacion CNP [address] [place] [address] (Fax) PCP - General Family Medicine 02/13/20 Trimmer Sorter Relationship Specialty Start Date End Date Ottoniel Encarnacion CNP [address] [place] [address] PCP - General Family Medicine 02/13/20 Team Status: Active Member Role Status Dates Ottoniel Encarnacion SQUEEGEE OPERATOR, SQUEEGEE OPERATOR-C Family Provider Active Ottoniel Encarnacion SQUEEGEE OPERATOR, SQUEEGEE OPERATOR-C Primary Care Provider Active Team Status: Inactive Member Role Status Dates Ottoniel Encarnacion SQUEEGEE OPERATOR, SQUEEGEE OPERATOR-C Primary Care Provider Active Dr. Tabby Krueger MD Attending Provider, Referring Provider Active Trimmer Sorter Relationship Specialty Start Date End Date Ottoniel Encarnacion CNP [address] [place] [address] PCP - General Family Medicine 02/13/20 Trimmer Sorter Relationship Specialty Start Date End Date Ottoniel Encarnacion CNP [address] [place] [address] PCP - General Family Medicine 02/13/20 Trimmer Sorter Relationship Specialty Start Date End Date Ottoniel Encarnacion CNP [address] [facility] [place] [address] (Fax) PCP - General Family Medicine 02/13/20 Trimmer Sorter Relationship Specialty Start Date End Date Ottoniel Encarnacion CNP [address] [facility] [place] [address] PCP - General Family Medicine 02/13/20 Trimmer Sorter Relationship Specialty Start Date End Date Ottoniel Encarnacion CNP [address] [place] [address] PCP - General Family Medicine 02/13/20 Trimmer Sorter Relationship Specialty Start Date End Date Ottoniel Encarnacion CNP [address] [facility] [place] [address] PCP - General Family Medicine 02/13/20 Trimmer Sorter Relationship Specialty Start Date End Date Ottoniel Encarnacion CNP [address] [place] [address] PCP - General Family Medicine 02/13/20 Trimmer Sorter Relationship Specialty Start Date End Date Ottoniel Encarnacion CNP [address] [place] [address] PCP - General Family Medicine 02/13/20 Trimmer Sorter Relationship Specialty Start Date End Date Ottoniel Encarnacion CNP [address] [place] [address] PCP - General Family Medicine 02/13/20 Trimmer Sorter Relationship Specialty Start Date End Date Ottoniel Encarnacion CNP [address] [facility] [place] [address] PCP - General Family Medicine 02/13/20 Trimmer Sorter Relationship Specialty Start Date End Date Ottoniel Encarnacion CNP [address] [place] [address] PCP - General Family Medicine 02/13/20 Trimmer Sorter Relationship Specialty Start Date End Date Ottoniel Encarnacion CNP [address] [place] [address] (Fax) PCP - General Family Medicine 02/13/20 Trimmer Sorter Relationship Specialty Start Date End Date Ottoniel Encarnacion CNP [address] [place] [address] (Fax) PCP - General Family Medicine 02/13/20 Trimmer Sorter Relationship Specialty Start Date End Date Ottoniel Encarnacion CNP [address] [place] [address] (Fax) PCP - General Family Medicine 02/13/20 Trimmer Sorter Relationship Specialty Start Date End Date Ottoniel Encarnacion CNP [address] [place] [address] (Fax) PCP - General Family Medicine 02/13/20 Trimmer Sorter Relationship Specialty Start Date End Date Ottoniel Encarnacion CNP [address] [place] [address] (Fax) PCP - General Family Medicine 02/13/20 Trimmer Sorter Relationship Specialty Start Date End Date Ottoniel Encarnacion CNP [address] [place] [address] (Fax) PCP - General Family Medicine 02/13/20 Trimmer Sorter Relationship Specialty Start Date End Date Ottoniel Encarnacion CNP [address] [place] [address] PCP - General Family Medicine 02/13/20 Trimmer Sorter Relationship Specialty Start Date End Date Ottoniel Encarnacion CNP [address] [place] [address] PCP - General Family Medicine 02/13/20 Trimmer Sorter Relationship Specialty Start Date End Date Ottoniel Encarnacion CNP [address] [place] [address] PCP - General Family Medicine 02/13/20 Trimmer Sorter Relationship Specialty Start Date End Date Ottoniel Encarnacion CNP [address] [place] [address] PCP - General Family Medicine 02/13/20 Trimmer Sorter Relationship Specialty Start Date End Date Ottoniel Encarnacion CNP [address] [facility] [place] [address] PCP - General Family Medicine 02/13/20 Trimmer Sorter Relationship Specialty Start Date End Date Ottoniel Encarnacion CNP [address] [place] [address] PCP - General Family Medicine 02/13/20 Trimmer Sorter Relationship Specialty Start Date End Date Ottoniel Encarnacion CNP [address] [place] [address] PCP - General Family Medicine 02/13/20 Trimmer Sorter Relationship Specialty Start Date End Date Ottoniel Encarnacion CNP [address] [place] [address] PCP - General Family Medicine 02/13/20 Trimmer Sorter Relationship Specialty Start Date End Date Ottoniel Encarnacion CNP [address] [place] [address] PCP - General Family Medicine 02/13/20 Trimmer Sorter Relationship Specialty Start Date End Date Ottoniel Encarnacion CNP [address] [place] [address] (Fax) PCP - General Family Medicine 02/13/20 Trimmer Sorter Relationship Specialty Start Date End Date Ottoniel Encarnacion CNP [address] [place] [address] (Fax) PCP - General Family Medicine 02/13/20 Trimmer Sorter Relationship Specialty Start Date End Date Ottoniel Encarnacion CNP [address] [place] [address] (Fax) PCP - General Family Medicine 02/13/20 Trimmer Sorter Relationship Specialty Start Date End Date Ottoniel Encarnacion CNP [address] [place] [address] (Fax) PCP - General Family Medicine 02/13/20 Trimmer Sorter Relationship Specialty Start Date End Date Ottoniel Encarnacion CNP [address] [place] [address] (Fax) PCP - General Family Medicine 02/13/20 Trimmer Sorter Relationship Specialty Start Date End Date Ottoniel Encarnacion CNP [address] [place] [address] (Fax) PCP - General Family Medicine 02/13/20 Trimmer Sorter Relationship Specialty Start Date End Date Ottoniel Encarnacion CNP [address] [place] [address] PCP - General Family Medicine 02/13/20 Goals [...] BE BASED ON THE PRIMARY CLINICAL RECORDS. [employer] [facility]. provides no warranty or guarantee of the accuracy or completeness of information in this document.
== END 2025-04-25 23:59 | disposition home or self-care (01) ==
PROVIDERS: Anesthesiology; PCP Nurse Practitioner Family; Referring Provider Obstetrics & Gynecology; Visit Provider Obstetrics & Gynecology
DX: Z01.812 Encounter for preprocedural laboratory examination (principal); Z01.810 Encounter for preprocedural cardiovascular examination; Z86.73 Personal history of transient ischemic attack (TIA), and cerebral infarction without residual deficits; N92.0 Excessive and frequent menstruation with regular cycle; N80.03 Adenomyosis of the uterus; Q51.28 Other and unspecified doubling of uterus
CPT/HCPCS: 36415; 80048; 80076; 81025; 82962; 83735; 84702; 85027; 85610; 85730; 86850; 86900; 86901; 93005; J3475

== ENCOUNTER 2025-05-08 09:13 | Emergency (ER) | payer OTHER, SELFPAY ==
[2025-05-08] VITALS (8 sets, daily range): BP systolic 115–159; BP diastolic 65–103; PULSE 74–109; RESP 14–18; TEMP 36.1; O2SAT 99–100; BMI 29.5
--- NOTE | 2025-05-08 09:31 | US_ITS ---
PROCEDURE: TRANSVAGINAL W/PREG US 05/08/2025 REASON FOR EXAM: Patient was with twins-miscarried 1 of them. TECHNIQUE: Procedure Code: [id number] Modality: US Procedure: TRANSVAGINAL W/PREG US COMPARISON: None. FINDINGS GESTATION: A single live intrauterine is identified. Mean gestational sac diameter: 24.0 mm. [place]-rump length (CRL): 8.0 mm. heart rate: 131 beats per minute. Yolk sac: Present with irregular morphology. PERIGESTATIONAL FINDINGS: Adjacent to the gestational sac containing the viable embryo, there is a heterogeneously hypoechoic complex collection without internal vascularity measuring 2.9 x 1.9 x 1.8 cm. Given the clinical history of prior twin gestation, this likely represents a hemorrhagic residual gestational sac from a demised twin and/or associated subchorionic hemorrhage. LMP gestational age: 7 weeks 5 days LMP NIELS: December 20, 2025 Sonographic gestational age: 7 weeks 1 day Sonographic NIELS: December 24, 2025 UTERUS: Unremarkable measuring 10.0 x 4.8 x 6.4 cm. No myometrial mass. CERVIX: Closed. Unremarkable. OVARIES: Normal size and appearance. Right ovary measures 1.8 x 1.1 x 1.5 cm with a volume of 1.7 mL. Left ovary measures 2.9 x 1.9 x 2.7 cm with a volume of 8.2 mL. Doppler evaluation confirms bilateral ovarian blood flow. No adnexal mass. FREE FLUID: No free fluid. US/Transvaginal w/Preg US IMPRESSION: 1. Single live intrauterine with an EGA of 7 weeks 1 day. Associate d irregular yolk sac morphology may have increased risk of early loss. Short-term interval follow-up ultrasound recomme nded. 2. Moderate perigestational hemorrhagic collection, likely related to a vanish ing twin. Reading Location: [id number]
[2025-05-08 09:42] LABS: Hematocrit 41.8 % (37-47); Hemoglobin 13.9 g/dL (12.0-15.0); Immature Granulocytes Count 0.040 X10^3/uL (0.0-0.0); Mean Corp Hgb Conc 33.3 g/dL (32-36); Mean Corpuscular Volume 86.9 fL (81-99); Mean Platelet Vol. 10.2 fl (6.2-12.0); NRBC Flagged by Analyzer 0 % (0-5); Platelet Count 316 K/mm3 (150-450); RBC Distribution Width CV 12.1 % (11.6-14.6); RBC Distribution Width SD 38.8 fl (35.1-43.9); Red Blood Count 4.81 M/mm3 (4.2-5.4); White Blood Count 9.8 K/mm3 (4.4-11.0)
--- NOTE | 2025-05-08 09:55 | ED.VIS.FEGU ---
HPI HPI - Female History of Present Illness Chief Complaint: Vag Bld, Preg Informant: patient Narrative Narrative: 35-year-old female presenting to the emergency room out of concerns for miscarriage. Patient states that she is probably about 7-1/2 weeks . She states that 2 weeks ago she was diagnosed with twins and ended up having a miscarriage of one of the twins. She states bleeding had stopped and she has been doing well. She states that last week she was at her boiler or engine operator's office (Dr. Escudero) and there was a heartbeat. She notes that around 0300 hrs. this morning she began to have heavy bleeding clots and tissue passage. Patient states that her OB told her she was unable to get the bleeding to stop that she should come to emergency. Patient notes that her first was twins which resulted in 1 miscarriage and 1 stillbirth. She had 2 successful pregnancies after that. She states that she has O+ by history. She denies any syncope or known bleeding issues. She notes a history of preeclampsia as well as underlying hypertension. [facility] Medical History Wears glasses Wears contact lenses Excessive bleeding Easy bruising Loss of consciousness Non-smoker History of echocardiogram Cardiology follow-up encounter Pre-eclampsia superimposed on chronic hypertension Pre-eclampsia Lyme disease Hx of intrauterine growth restriction in prior , currently Essential (primary) hypertension IBS (irritable bowel syndrome) TIA (transient ischemic attack) Anxiety Tachycardia Chronic hypertension affecting delivery delivered Multiple fractures IUFD at 20 weeks or more of gestation Osteoporosis POTS (postural orthostatic tachycardia syndrome) Home Medications ?Medication ?Instructions ?Recorded ?Last Taken ?Type pediatric [id number] 1 ea PO DAILY 04/26/19 04/24/25 History labetalol 200 mg tablet 200 mg PO Q12H HTN 10/12/23 04/25/25 History aspirin 81 mg capsule 81 mg PO DAILY 06/27/24 04/24/25 History Allergy/AdvReac Type Severity Reaction Status Date / Time Sulfa (Sulfonamide Allergy Intermediate Hives Verified 05/08/25 09:14 Antibiotics) latex Allergy Rash Verified 05/08/25 09:14 adhesive tape AdvReac Intermediate Rash Verified 05/08/25 09:14 Family History Father Diabetes Hypertension Dementia Surgical History Hx of cholecystectomy Hx of colonoscopy S/P History of surgery S/P dilation and curettage Social History adopted: No household members: spouse 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 Smoking Status: Never smoker ROS ROS ED Constitutional Constitutional ED: Denies chills or weight loss Eyes Eyes: Denies change in vision or diplopia ENT ENT ED: Denies ear pain, rhinorrhea or sore throat Cardiovascular Cardiovascular: Denies chest pain, orthopnea, palpitations or racing heartbeat Respiratory/Chest Respiratory/Chest: Denies cough, dyspnea or orthopnea Gastrointestinal Gastrointestinal: Denies abdominal pain, diarrhea, nausea or vomiting Genitourinary Genitourinary ED: Reports other Details: Vaginal bleeding pelvic cramping ; Denies dysuria, hematuria or urinary frequency Musculoskeletal Musculoskeletal: Denies arthralgias or myalgias Integumentary Denies abscess or rash Neurologic Neurologic: Denies headache(s) or weakness Psychiatric Psychiatric: Denies anxiety, depression, suicidal ideation or suicidal thoughts Endocrine Endocrinology: Denies polydipsia, polyphagia or polyuria Allergic/Immunologic Allergic/Immunologic ED: Denies mouth swelling, tongue swelling or urticaria EXAM Physical Exam Const Vital Signs: 05/08/25 09:14 05/08/25 09:30 05/08/25 12:00 Temperature 96.9 F L Temperature Source Temporal Pulse Rate 109 H 102 H 74 Respiratory Rate 16 18 16 Blood Pressure 138/100 H 159/103 H 134/88 H Blood Pressure Mean 112 121 103 Pulse Ox 99 100 100 Oxygen Delivery Method Room Air Room Air Room Air 05/08/25 13:20 05/08/25 13:30 05/08/25 13:45 Temperature Temperature Source Pulse Rate 88 81 81 Respiratory Rate 14 15 18 Blood Pressure 130/83 H 133/78 H Blood Pressure Mean 97 94 Pulse Ox 99 100 100 Oxygen Delivery Method 05/08/25 14:00 05/08/25 14:35 Temperature 96.9 F L Temperature Source Pulse Rate 86 86 Respiratory Rate 15 15 Blood Pressure 115/65 115/65 Blood Pressure Mean 79 81 Pulse Ox 100 Oxygen Delivery Method Positive well nourished and well developed General Appearance ED: well developed and NAD HEENT Reports normocephalic, head/scalp atraumatic and moist mucous membranes Eyes PERRL and EOMs intact bilaterally Neck no lymphadenopathy, supple and no JVD Resp normal respiratory effort and clear to auscultation bilaterally Cardio regular rate, regular rhythm and no murmurs GI normal to inspection, nondistended, normoactive bowel sounds and non-tender Palpation: soft Back/Spine no CVA tenderness and normal ROM Extremity normal to inspection General Extremety ED: Negative for edema General Extremity: Negative for edema Neuro oriented x3 and CN's II-XII intact bilaterally Sensorium / Orientation: alert Motor Exam: strength 5/5 throughout Psych mental status grossly normal Mood & Affect: Negative for depressed or tearful Skin no rashes or lesions noted and no wounds MDM MDM MDM Narrative Medical decision making narrative: Differential diagnosis includes but not limited to miscarriage threatened miscarriage demise anemia Patient's blood pressure significantly improved. 115/65. She notes that she took her blood pressure pill (labetalol) just before leaving the house [place]. [place] [address] she is O+. Hemoglobin 13.9 platelet count 316. Pelvic ultrasound was obtained please see radiologist read. Single live intrauterine is noted with heart rate of 131. There is an associated irregular yolk sac. There is perigestational hemorrhagic collection noted. I discussed the case and the ultrasound with Dr. Robles ribeiro who is covering Dr. Escudero. She is familiar with the patient. Patient will be instructed on pelvic rest bleeding precautions return instructions History & Record Review Discussion w/independent historian: Patient and Significant other Additional record(s) reviewed:: Prior outpatient record and Prior labs Lab Data Attestation: I reviewed the patient's lab results. Labs: Laboratory Results - last 24 hr 05/08/25 09:30 WBC 9.8 RBC 4.81 Hgb 13.9 Hct 41.8 MCV 86.9 MCH 28.9 MCHC 33.3 RDW Std Deviation 38.8 RDW Coeff of Phylicia 12.1 Plt Count 316 MPV 10.2 Immature Gran % (Auto) 0.400 Neut % (Auto) 73.8 H Lymph % (Auto) 16.9 L Gates % (Auto) 6.5 Eos % (Auto) 2.0 Baso % (Auto) 0.4 Absolute Neuts (auto) 7.3 Absolute Lymphs (auto) 1.66 Nucleated RBC % 0 HCG, Quant 44233 H Blood Type O POSITIVE Radiography Diagnostic Testing: Clinical Impression(s) from Imaging Studies Obstetrics Ultrasound 05/08/25 09:31 IMPRESSION: 1. Single live intrauterine with an EGA of 7 weeks 1 day. Associated irregular yolk sac morphology may have increased risk of early loss. Short-term interval follow-up ultrasound recommended. 2. Moderate perigestational hemorrhagic collection, likely related to a vanishing twin. Reading Location: [facility] Discharge Plan Triage Chief Complaint: Vag Bld, Preg ED Provider: Krish Villalobos Dx/Rx/DC Orders Clinical Impression: Threatened miscarriage, First trimester bleeding, Subchorionic hemorrhage Instructions: Miscarriage Threatened Prescriptions: No Action pediatric qpumrmfs-nugo-dvz 1 EACH tablet,chewable 1 ea PO DAILY labetalol 200 mg tablet 200 mg PO Q12H aspirin 81 mg capsule 81 mg PO DAILY Primary Care Provider: Albertina Encarnacion NP Referrals: Karen Escudero MD [Med Staff - Active Staff, Obstetrics-Gynecology (OBGYN)] - As soon as possible Albertina Encarnacion NP, DIESEL TECHNOLOGY INSTRUCTOR-C [Primary Care Provider, Family Practice] Activity Restrictions/Additional Instructions: Pelvic rest to include sitting when able/laying down and no lifting greater than 30 pounds. OB should be calling to schedule a follow-up appointment with you. Monitor bleeding return if worsening concerns. Please stay in touch with the on-call boiler or engine operator if needed. Print Language: Lao Disposition Disposition: Home, Self Care Discharge Date/Time: 05/08/25 14:35
== END 2025-05-08 14:35 | disposition home or self-care (01) ==
PROVIDERS: Emergency Provider Emergency Medicine; PCP Nurse Practitioner Family; Visit Provider Emergency Medicine
DX: O46.91 Antepartum hemorrhage, unspecified, first trimester (principal); O41.8X11 Other specified disorders of amniotic fluid and membranes, first trimester, fetus 1; O11.9 Pre-existing hypertension with pre-eclampsia, unspecified trimester; Z3A.01 Less than 8 weeks gestation of pregnancy
CPT/HCPCS: 76817; 84702; 85025; 86900; 86901; 99283; A4216